=== PATIENT | male | born 1960 | race Caucasian/White ===

== ENCOUNTER → 2023-10-13 06:18 | Day surgery (SDC) | payer OTHER, SELFPAY ==
[2023-10-13 07:38] LABS: Glucose - Point of Care 218 mg/dl (70-99)
== END ==
LOC: GI 06:18
PROVIDERS: ATTENDING PHYSICIAN Internal Medicine
DX: Z12.11 Encounter for screening for malignant neoplasm of colon (principal); K64.8 Other hemorrhoids; K57.30 Diverticulosis of large intestine without perforation or abscess without bleeding; K63.89 Other specified diseases of intestine; D12.0 Benign neoplasm of cecum; D12.8 Benign neoplasm of rectum; D12.5 Benign neoplasm of sigmoid colon; K64.4 Residual hemorrhoidal skin tags; Z86.010 Personal history of colon polyps
CPT/HCPCS: 45385; 45380; 88305; 82962

== ENCOUNTER → 2023-10-30 07:36 | Outpatient (REF) | payer OTHER, SELFPAY | LOC: WOUND 07:36 | PROVIDERS: ATTENDING PHYSICIAN Surgery; FAMILY PHYSICIAN Family Medicine | DX: L97.212 Non-pressure chronic ulcer of right calf with fat layer exposed (principal); L97.221 Non-pressure chronic ulcer of left calf limited to breakdown of skin; I77.6 Arteritis, unspecified; I87.2 Venous insufficiency (chronic) (peripheral); I73.9 Peripheral vascular disease, unspecified; Z79.4 Long term (current) use of insulin; I49.9 Cardiac arrhythmia, unspecified; E13.49 Other specified diabetes mellitus with other diabetic neurological complication; E11.610 Type 2 diabetes mellitus with diabetic neuropathic arthropathy | CPT/HCPCS: 99204 ==

== ENCOUNTER → 2023-11-07 14:43 | Outpatient (REF) | payer OTHER, SELFPAY | LOC: WOUND 14:43 | PROVIDERS: ATTENDING PHYSICIAN Surgery; FAMILY PHYSICIAN Family Medicine | DX: L97.212 Non-pressure chronic ulcer of right calf with fat layer exposed (principal); L97.221 Non-pressure chronic ulcer of left calf limited to breakdown of skin; I77.6 Arteritis, unspecified; I87.2 Venous insufficiency (chronic) (peripheral); I73.9 Peripheral vascular disease, unspecified; I49.9 Cardiac arrhythmia, unspecified; E13.49 Other specified diabetes mellitus with other diabetic neurological complication; E11.610 Type 2 diabetes mellitus with diabetic neuropathic arthropathy; Z79.4 Long term (current) use of insulin | CPT/HCPCS: 99213 ==

== ENCOUNTER → 2023-11-20 14:40 | Outpatient (REF) | payer OTHER, SELFPAY | LOC: WOUND 14:40 | PROVIDERS: ATTENDING PHYSICIAN Surgery; FAMILY PHYSICIAN Family Medicine | DX: L97.212 Non-pressure chronic ulcer of right calf with fat layer exposed (principal); L97.221 Non-pressure chronic ulcer of left calf limited to breakdown of skin; L03.116 Cellulitis of left lower limb; I16.9 Hypertensive crisis, unspecified; I77.6 Arteritis, unspecified; I87.2 Venous insufficiency (chronic) (peripheral); I73.9 Peripheral vascular disease, unspecified; I49.9 Cardiac arrhythmia, unspecified; E11.610 Type 2 diabetes mellitus with diabetic neuropathic arthropathy; Z79.4 Long term (current) use of insulin | CPT/HCPCS: 99214 ==

== ENCOUNTER → 2023-11-27 09:26 | Outpatient (REF) | payer OTHER, SELFPAY | LOC: WOUND 09:26 | PROVIDERS: ATTENDING PHYSICIAN Surgery; FAMILY PHYSICIAN Family Medicine | DX: L97.212 Non-pressure chronic ulcer of right calf with fat layer exposed (principal); L97.221 Non-pressure chronic ulcer of left calf limited to breakdown of skin; L03.116 Cellulitis of left lower limb; I16.9 Hypertensive crisis, unspecified; I77.6 Arteritis, unspecified; I87.2 Venous insufficiency (chronic) (peripheral); I73.9 Peripheral vascular disease, unspecified; I49.9 Cardiac arrhythmia, unspecified; E11.610 Type 2 diabetes mellitus with diabetic neuropathic arthropathy | CPT/HCPCS: 99213 ==

== ENCOUNTER → 2023-12-05 14:35 | Outpatient (REF) | payer OTHER, SELFPAY | LOC: WOUND 14:35 | PROVIDERS: ATTENDING PHYSICIAN Surgery; FAMILY PHYSICIAN Family Medicine | DX: L97.212 Non-pressure chronic ulcer of right calf with fat layer exposed (principal); L97.221 Non-pressure chronic ulcer of left calf limited to breakdown of skin; L03.116 Cellulitis of left lower limb; I16.9 Hypertensive crisis, unspecified; I77.6 Arteritis, unspecified; I87.2 Venous insufficiency (chronic) (peripheral); I73.9 Peripheral vascular disease, unspecified; I49.9 Cardiac arrhythmia, unspecified; E13.49 Other specified diabetes mellitus with other diabetic neurological complication; E11.610 Type 2 diabetes mellitus with diabetic neuropathic arthropathy; Z79.4 Long term (current) use of insulin | CPT/HCPCS: 99213 ==

== ENCOUNTER → 2024-06-03 16:24 | Outpatient (REF) | payer OTHER, SELFPAY | LOC: RAD 16:24 | PROVIDERS: ATTENDING PHYSICIAN Family Medicine | DX: T14.8XXA Other injury of unspecified body region, initial encounter (principal) | CPT/HCPCS: 74018 ==

== ENCOUNTER → 2024-06-17 10:17 | Outpatient (REF) | payer OTHER, SELFPAY ==
[2024-06-17 11:31] LABS: INR 4.44; PT 41.8 Sec (11.4-14.6)
== END ==
LOC: REG 10:17
PROVIDERS: ATTENDING PHYSICIAN Internal Medicine Cardiovascular Disease; FAMILY PHYSICIAN Family Medicine
DX: I24.0 Acute coronary thrombosis not resulting in myocardial infarction (principal); Z79.01 Long term (current) use of anticoagulants
CPT/HCPCS: 36415; 85610

== ENCOUNTER 2024-06-18 21:11 | Inpatient (IN) | payer OTHER, MEDICARE, SELFPAY ==
[2024-06-18] VITALS (10 sets, daily range): BP systolic 98–129; BP diastolic 61–81; BMI 28.9
[2024-06-18 16:10] LABS: Glucose - Point of Care 199 mg/dl (70-99)
[2024-06-18 16:36] LABS: % Basophils 0.3 % (0-2); % Immature Granulocytes 0.4 % (0-0.5); % Lymphocytes 4.2 % (20.5-51.1); % Monocytes 7.4 % (1.7-9.3); % Neutrophils 87.7 % (42.2-75.2); Absolute Lymphocytes 0.5 10^3/uL (1.2-3.4); Absolute Monocytes 0.8 10^3/uL (0.1-0.6); Absolute Neutrophils 9.5 10^3/uL (1.4-6.5); Hematocrit 45.4 % (39.0-52.0); Mean Corpuscular Hgb 28.4 pg (27.0-31.0); Mean Corpuscular Volume 85.8 fL (80.0-94.0); Mean Platelet Volume 10.5 fL (7.4-10.4); Nucleated Red Blood Cells % 0 % (-); Platelet Count 279 10^3/uL (130-400); Red Blood Cell Count 5.29 10^6/uL (4.70-6.10); Red Cell Dist. Width 16.1 % (11.5-14.5); White Blood Cell Count 10.9 10^3/uL (4.8-10.8)
--- NOTE | 2024-06-18 16:39 | ED.GENMED ---
History of Present Illness
General
Chief Complaint: Change in Mental Status
Time Seen by Provider: 06/18/24 16:39
History of Present Illness
History of Present Illness:
TIME OF INITIAL ENCOUNTER: 4:40 PM
HPI: Earlier today, cannot tell me exactly when, the patient appeared to be having trouble with his coordination and had some slurred speech. Of note, the patient was admitted to [facility] about 2 weeks ago for congestive heart
failure. He was diuresed. He is also a diabetic. He had been having chills.
EXAM:
GENERAL: Well appearing in no distress
HEENT: Moist oral mucosa
CARDIOVASCULAR: No murmurs, normal heart rate, regular rhythm, No chest wall tenderness
PULMONARY: No respiratory distress, breath sounds are clear and equal
ABDOMEN: Soft with no peritoneal signs, no tenderness
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
PSYCHIATRIC: Appropriate mental status, normal insight and judgement, very minimal cognitive deficits, was able to name the month and place appropriately
EXTREMITIES: Nontender, 1-2+ bilateral lower extremity edema, moves all extremities equally
SKIN: Erythematous distal lower extremities, wound to the left foot
NUMBER AND COMPLEXITY OF PROBLEMS ADDRESSED AT THE ENCOUNTER
� Chronic conditions affecting care: CHF/cardiomyopathy, high blood pressure, IDDM
� Acute Exacerbation and/or Progression of Chronic Illness: This is an acute problem
� Differential Diagnosis includes:TIA/CVA, hyperglycemia/hypoglycemia, infectious etiology such as UTI, intracranial hemorrhage (supratherapeutic INR)
AMOUNT AND/OR COMPLEXITY OF DATA TO BE REVIEWED AND ANALYZED
� I performed an independent evaluation of and my interpretation is:
EKG: Sinus 57, poor R wave progression, no change from 07/14/2020
CT: CT brain shows no acute abnormality
X-rays: I do not see any clear evidence of pneumonia on chest x-ray
Laboratory Studies: White count 10.9, hemoglobin normal, random glucose 199, sodium 129, bicarb 21, BUN 50, creatinine 1.6�this is acutely worse
Other:
� Review of other/old records: The patient was admitted with CHF in 2020 here. I reviewed some paperwork from [facility] from 2 weeks ago indicating that the patient had a unremarkable brain CT, and had an EF of 15 to
20% and was found to have an LV thrombus for which he is now on Coumadin.
� Clinical information was obtained by an independent historian: I spoke to the at bedside
� Prescriptions/Medications Considered but not given:
� Further testing considered but not performed:
RISK OF COMPLICATIONS AND/OR MORBIDITY OR MORTALITY OF PATIENT MANAGEMENT
� Social determinants of health affecting care: Lives at home
� Discussion with other providers: I notified Dr. Cope at 's request and I also notified Dr. [place]. Dr. Noble for admission.
� Escalation of care including admission/observation vs risk of discharge considered: The patient was hypotensive upon arrival. He is given IV fluids as he does have GHAZAL. He was diuresed recently. His mental status is overall
near back to baseline according to family.
ANY OTHER UPDATES:
7:30 PM: I reassessed patient. Appropriate mental status. BP has been improving. Planning to keep in the hospital for further management of what could have been a TIA and he also has worsening renal function and had been hypotensive upon arrival
he was given IV fluids.
Past History
Past History
ED Past Medical History: HTN, Hypercholesterolemia, IDDM, Other (Cellulitis,) and Other (Nonischemic cardiomyopathy, mild MR)
ED Past Surgical History: Orthopedic
Social History
Tobacco: Former smoker
Alcohol: Occasional
Personal:
Living: with family
Employment: Employed
Family History
Family History: Other (Coronary disease. Sister with brain cancer. Brother with prostate cancer and COPD)
Phy Exam
Physical Exam
Physical Exam:
See HPI
Course
Orders/Labs/Results
Orders:
Orders
06/18/24 16:02
Electrocardiogram (*1) Urgent
Reason for Study: Fatigue / Weakness
EKG- Treatment ONCE
06/18/24 16:11
COVID-19 Antigen Urgent
Source: Nasal Swab
Influenza A+B Rapid Molecular Urgent
VIOLA Source: Nasal Swab
Specimen Description:
06/18/24 16:12
BNP [NT-proBNP] Urgent
Complete Blood Count/With Diff Urgent
Comprehensive Metabolic Panel Urgent
Lactic Acid Urgent
06/18/24 16:50
CT Head W/o Iv Contrast Urgent
Comment:
Reason For Exam: change in mental status
06/18/24 16:51
Prothrombin Time Urgent
Urine Culture Reflexed from UA [Urinalysis Reflex To Culture] Urgent
Date Specimen was Collected: 06/18/24
Time Specimen was Collected: 16:50
Urine Microscopic Reflex Cult Urgent
Urine Culture Urgent
VIOLA Source: U
Specimen Description:
Date Specimen was Collected: 06/18/24
Time Specimen was Collected: 16:50
CR Chest - 2 Views Urgent
Comment:
Reason For Exam: cough
06/18/24 18:21
0.9% Sodium Chloride 250 ml [Nss] 250 ml IV BOLUS
06/18/24 20:01
Serum Osmolality Routine
Urine Osmolality Random [Osmolality, Random Urine] Routine
Urine Sodium Routine
06/19/24 06:00
TSH Reflex To Free T4 IN AM
Abnormal Lab Results
06/18/24 06/18/24 06/18/24
16:09 16:12 16:51
WBC 10.9 H 10^3/uL
(4.8-10.8)
RDW 16.1 H %
(11.5-14.5)
MPV 10.5 H fL
(7.4-10.4)
Absolute Neuts (auto) 9.5 H 10^3/uL
(1.4-6.5)
Absolute Lymphs (auto) 0.5 L 10^3/uL
(1.2-3.4)
Absolute Monos (auto) 0.8 H 10^3/uL
(0.1-0.6)
Neutrophils % 87.7 H %
(42.2-75.2)
Lymphocytes % 4.2 L %
(20.5-51.1)
PT 38.1 H Sec
(11.4-14.6)
Sodium 129 L mmol/L
(135-145)
Chloride 94 L mmol/L
(98-107)
Carbon Dioxide 21 L mmol/L
(22-30)
BUN 50 H mg/dl
(9-20)
Creatinine 1.6 H mg/dL
(0.7-1.3)
Glucose 212 H mg/dl
(70-99)
Calcium 8.2 L mg/dl
(8.4-10.2)
Total Bilirubin 1.9 H mg/dl
(0.2-1.3)
AST 83 H U/L
(17-59)
ALT 80 H U/L
(0-50)
Alkaline Phosphatase 385 H U/L
(38-126)
Albumin 3.4 L g/dl
(3.5-5.0)
Ur Occult Blood Reflex 1+ A
(Negative)
Urine Bacteria (Reflex) Moderate A
(Negative)
Urine Glucose 3+ A
(Negative)
Urine Albumin (Reflex) 3+ A
(Neg - Trace)
POC Glucose 199 H mg/dl
(70-99)
06/18/24 16:12
06/18/24 16:12
Vital Signs
Initial and Last Documented VS:
Initial Vital Signs
Pulse Resp BP Pulse Ox
58 16 98/61 98
06/18/24 15:57 06/18/24 15:57 06/18/24 15:57 06/18/24 15:57
Last Documented Vital Signs
Temp Pulse Resp BP Pulse Ox
36.3 C 65 19 129/73 97
06/18/24 17:15 06/18/24 19:15 06/18/24 19:15 06/18/24 19:29 06/18/24 19:45
*Critical Care Note
Total Time (30-74mins, 75-104mins- exclusive of procedures): Not Applicable
ED Attending Note
-
Portions of this chart may have been created with voice recognition software.� Occasional wrong word or��sound alike� substitutions may have occurred due to the inherent limitations of voice recognition software.
Discharge Plan
Departure
Patient Disposition: Admit
Date of Disposition: 06/18/24
Time of Disposition: 19:41
Presentation/result/management discussed w/ accepting MD/DO: Hospitalist
Discharge Problem:
Transient ischemic attack (TIA)
Prescriptions:
No Action
aspirin 81 MG tablet,delayed release (DR/EC)
81 mg PO DAILY
zolpidem 10 MG tablet
10 mg PO HS
Patient Comments:
06/18/24: Last filled 04/09/24 for 90 tabs over 90 days per PDMP
furosemide 40 MG tablet
40 mg PO BID
gabapentin [Neurontin] 600 MG tablet
600 mg PO DAILY
carvedilol 12.5 MG tablet
12.5 mg PO BID Qty: 30 0RF
atorvastatin 80 mg Tablet
80 mg PO DAILY
warfarin 7.5 mg Tablet
5 mg PO QPM
Patient Comments:
06/18/24: Patient previously on 7.5mg daily, recently had INR checked, skipping dose today and plans on taking 5mg daily afterwards, will recheck in 1 week
hydralazine 25 mg Tablet
25 mg PO TID
spironolactone 25 mg Tablet
25 mg PO QPM
albuterol sulfate 90 mcg/actuation Hfa Aerosol Inhaler
2 puff INHALATION R Q6HPRN PRN (Reason: sob)
insulin lispro [Humalog KwikPen Insulin] 100 unit/mL Insulin Pen
5 unit SC AC
dapagliflozin propanediol [Farxiga] 10 mg Tablet
10 mg PO DAILY
Entresto 97-103 mg Tablet
1 tab PO BID
magnesium oxide 400 mg magnesium Tablet
400 mg PO BID
Levemir FlexTouch U100 Insulin 300 UNIT/3 ML insulin pen
20 unit SC BID@0800,1700
Referrals:
Raymond Sherwood DO [Family Provider] -
Interventions
Interventions:
*Risk Screen - Suicide Last Done: 06/18/24 15:57
*General Assessment Last Done: 06/18/24 15:57
*Neglect/Abuse Screening Last Done: 06/18/24 16:52
*ED- Fall Risk Assessment Last Done: 06/18/24 16:52
*ED COVID-19 Vaccine History Last Done: 06/18/24 16:52
ED- Pulmonary Assessment Last Done: 06/18/24 16:53
ED- Neurological Assessment Last Done: 06/18/24 16:53
ED- Cardiac Assessment Last Done: 06/18/24 16:53
ED Swallowing Screen Last Done: 06/18/24 17:13
Discharge Date and Time
Print Language: TAJIK
[2024-06-18 16:55] LABS: ALT (SGPT) 80 U/L (0-50); AST (SGOT) 83 U/L (17-59); Albumin 3.4 g/dl (3.5-5.0); Alkaline Phosphatase 385 U/L (38-126); Blood Urea Nitrogen 50 mg/dl (9-20); Calcium 8.2 mg/dl (8.4-10.2); Carbon Dioxide 21 mmol/L (22-30); Chloride 94 mmol/L (98-107); Estimated Creatinine Clearance 57 ml/min; Glucose 212 mg/dl (70-99); Lactic Acid 1.4 mmol/L (0.7-2.0); Potassium 4.4 mmol/L (3.5-5.1); Sodium 129 mmol/L (135-145); Total Bilirubin 1.9 mg/dl (0.2-1.3); Total Protein 6.7 g/dl (6.3-8.2); eGFR 47.52
[2024-06-18 17:11] LABS: Urine Albumin 3+ (Neg - Trace); Urine Bilirubin Negative (Negative); Urine Character Clear (Clear); Urine Color Yellow; Urine Glucose 3+ (Negative); Urine Ketone Negative (Negative); Urine Leukocyte Negative (Negative); Urine Nitrite Negative (Negative); Urine Occult Blood 1+ (Negative); Urine Specific Gravity 1.025 (<1.030); Urine Urobilinogen Negative (Neg - 1+)
[2024-06-18 17:22] LABS: INR 3.94; PT 38.1 Sec (11.4-14.6)
[2024-06-18 17:23] LABS: Urine Bacteria Moderate (Negative); Urine Hyaline Cast >15 /LPF (0-2); Urine Red Blood Cell 0-2 /HPF (0-2)
[2024-06-18 17:34] LABS: NT-proBNP 4400 pg/ml
[2024-06-18 17:40] LABS: COVID-19 Antigen Negative (Negative)
[2024-06-18] MEDS: NSS 250 IV (18:58)
--- NOTE | 2024-06-18 19:53 | HPS.HSE ---
Family Physician
-
Family Physician: Raymond Sherwood
Chief Complaint
-
Confusion, garbled speech, episode of staring, leg edema
History of Present Illness
63-year-old male brought in by his to the ER for episode of staring with confusion and garbled speech. His daughter is at bedside and states her father today has been very confused he is normally very pleasant with her never gets agitated or
yells at her but he did this today she was telling me this information while the patient was in the bathroom she also reports he has been extremely lethargic falling asleep at all times of the day for the past month he states he has been missing
dinners due to falling asleep during dinner times he remembers getting up this morning and feeling very off balance but then he does not remember staring or garbled speech he states when he gets up he feels that he has to steady himself that his
legs are also heavier due to edema. He was not aware that during his recent hospitalization stay at [facility] he was wandering at night climbing out of the bed doing bizarre things however they were giving him his routine Ambien that he
has been taking for years he was on fall precautions with bed alarms per daughter that he has no recollection of. He does report feeling loss of appetite overall short of breath with dyspnea on exertion, bilateral leg edema that is weeping and
episodes of confusion today. His daughter stated on Monday he called her crying saying he was depressed and he would never normally say that she thought perhaps this was due to a recent fci as [employer] she states he normally
would only ever break down in front of his her mother. Patient denies headache, blurred vision out of right eye, sore throat, chest pain, palpitations, cough, abdominal pain, nausea, vomiting, diarrhea, urinary symptoms.
She reports he was admitted to [facility] 2 weeks ago for congestive heart failure was diuresed diagnosed with cardiomyopathy EF 15-20% and an LV thrombus he was placed on Coumadin. He is currently at his baseline. His past medical history
of DM2, HLD, chronic systolic CHF, right leg cellulitis, cardiomyopathy EF 40% 06/10/2022, nicotine dips
Medical History
Past Medical History
Past Medical History: Reports Other
Additional Past Medical History:
LV thrombus 06/06 - 06/12/[address] [facility]
Worsening cardiomyopathy EF 15-20% June 2024 [facility]
cardiomyopathy EF 40% 06/10/2022
Renal insufficiency
DM2
HLD
chronic systolic CHF
right leg cellulitis,
nicotine dips
Past Surgical History: Reports Other (Arthroscopic knee surgery right 3 times left 2 times, renal calculi removal, penile implant, back surgery, cataract extraction with detached retina and lens implant left eye)
Social History
Tobacco: Other (DIPs tobacco)
Alcohol: None
Drug: None
Personal:
Living: With Family ()
Employment: Retired ([employer])
Family History
Family History: Not pertinent
Allergies / Home Medications
Allergies reflects when Allergies were last updated in [employer].
Home Medications with original date entered in [employer]
Allergy/Medication List:
Allergies
Allergy/AdvReac Type Severity Reaction Status Date / Time
No Known Allergies Allergy Verified 06/18/24 16:01
Home Medications
aspirin 81 mg tablet,delayed release 81 mg PO DAILY Heart disease 07/06/09
zolpidem 10 mg tablet 10 mg PO HS Sleep 04/22/19
furosemide 40 mg tablet 40 mg PO BID Fluid retention/Swelling 05/19/19
gabapentin 600 mg tablet (Neurontin) 600 mg PO DAILY Neurological Condition 07/09/20
carvedilol 12.5 mg tablet 12.5 mg PO BID Heart Failure ##30 07/14/20
albuterol sulfate 90 mcg/actuation aerosol inhaler 2 puff inhalation R Q6HPRN PRN sob 06/18/24
atorvastatin 80 mg tablet 80 mg PO DAILY 06/18/24
dapagliflozin propanediol 10 mg tablet (Farxiga) 10 mg PO DAILY 06/18/24
hydralazine 25 mg tablet 25 mg PO TID 06/18/24
insulin detemir U-100 100 unit/mL (3 mL) subcutaneous pen (Levemir FlexTouch U-100 Insulin) 20 unit SC BID@0800,1700 Diabetes 06/18/24
insulin lispro 100 unit/mL subcutaneous pen (Humalog KwikPen (U-100) Insulin) 5 unit SC AC 06/18/24
magnesium oxide 400 mg PO BID 06/18/24
sacubitril 97 mg-valsartan 103 mg tablet (Entresto) 1 tab PO BID 06/18/24
spironolactone 25 mg tablet 25 mg PO QPM 06/18/24
warfarin 7.5 mg tablet 5 mg PO QPM 06/18/24
Review of Systems
-
History Source: Patient and Family (Daughter at bedside)
A 12 point ROS was completed and negative except as noted: Yes
Constitutional: Reports Weight Gain, Fatigue and Other (Confusion, staring episode, agitation episode, garbled speech)
EENT: Denies Sore Throat or Runny Nose
Respiratory: Reports Trouble Breathing and Other (RODRÍGUEZ x 1 month); Denies Cough
Cardiac: Denies Chest Pain, Diaphoresis, Palpitations or Syncope
Abdomen/GI: Denies Abdominal Pain, Nausea, Vomiting, Diarrhea, Constipated, Bloody Stools or Black Stools
: Denies Dysuria, Frequency, Flank Pain, Incontinence, Difficulty Voiding or Urgency
Musculoskeletal: Reports Edema (+3 bilateral leg edema with chronic venous stasis dermatitis and flaking skin bilaterally); Denies Joint Pain
Skin: Denies Itching or Rash
Neurological: Reports Weakness (Generalized); Denies Dizzy or Headache
Endocrine: Reports No Symptoms
Hematologic/Lymphatic: Reports No Symptoms
Psych: Reports Calm
Physical Exam
Vital Signs
Vital Signs
Temp Pulse Resp BP Pulse Ox
97.4 F 65 19 129/73 97
06/18/24 17:15 06/18/24 19:15 06/18/24 19:15 06/18/24 19:29 06/18/24 19:45
Physical Exam
General: Comfortable, Conversant and Other (Approximately 11 AM had Confusion, staring episode, agitation episode, garbled speech-appears to be resolved however patient still does not have memory of what happened this morning and some memory of his
recent admission); No Fever or Chills
HEENT: NormoCephalic, Anicteric, Moist mucous membranes, PERRLA (Right eye only left eye with lens implant), Spelter Conjunctivae, No Ptosis and Neck Nontender
Respiratory: Clear; No Wheezes, Rales or Rhonchi
Cardiac: S1/S2, Regular Rhythm and Peripheral Edema (+3 bilateral leg edema with chronic venous stasis dermatitis and flaking skin bilaterally)
Breast: Deferred by me
GI: Soft, Non Tender, Non Distended, Normal Bowel Sounds and No Hepatosplenomegaly
Rectal: Deferred by Provider
Genito-urinary: Deferred by me
Musculoskeletal: Edema, Left Lower Extremity (+3 bilateral leg edema with chronic venous stasis dermatitis and flaking skin bilaterally) and Edema, Right Lower Extremity (+3 bilateral leg edema with chronic venous stasis dermatitis and flaking skin
bilaterally); No Edema, Left Upper Extremity or Edema, Right Upper Extremity
Skin: Warm and Dry; No Jaundice
Neuro: AO x 3 (But forgetful of earlier events today does not recall staring at having slurred speech but does recall feeling off balance at 11 AM is oriented to name, place, president), Cranial Nerves Intact, No Sensory Deficits and Other
(Feels off balance when walking is holding onto things); No Slurred Speech, Facial Droop, Tremors or Sedated
Psych: Calm
Laboratory Results
-
06/18/24 16:12
06/18/24 16:12
Laboratory Results
PT 38.1 Sec (11.4-14.6) H 06/18/24 16:51
INR 3.94 06/18/24 16:51
Lactic Acid 1.4 mmol/L (0.7-2.0) 06/18/24 16:12
Total Bilirubin 1.9 mg/dl (0.2-1.3) H 06/18/24 16:12
AST 83 U/L (17-59) H 06/18/24 16:12
ALT 80 U/L (0-50) H 06/18/24 16:12
Alkaline Phosphatase 385 U/L (38-126) H 06/18/24 16:12
Impression/Plan
-
Impression/plan:
Admit to IMU
#Slurred speech/confusion with staring episodes, mood changes agitation concern for TIA versus CVA vs Seizure vs hypercarbia from cardiomyopathy
-Check lipid profile, HgbA1c
-Continue aspirin 81 mg daily
-Check lipid profile continue atorvastatin 80 mg daily
-MRI brain
-Ultrasound carotids
-Consult PT/OT/case management
-Consult neuro
-check B12 level
CT head:1. Mild diffuse cerebral and cerebellar volume loss.
2. Mild periventricular white matter leukoaraiosis.
3. Intraocular silicone oil in the left globe (vitreous replacement) for treatment of retinal detachment.
#Acute on chronic systolic CHF/cardiomyopathy EF 15-20% per 2 weeks ago
#Recent exacerbation CHF 2 weeks ago [facility] 06/06 - 06/12
Bilateral leg +3 edema with history of chronic leg cellulitis
-Obtain records from [facility] including echocardiogram
-Consult [facility] cardiology Dr. Ny aware
-IV Lasix 40 mg now single dose needs 40 twice daily but unsure if BP will tolerate
-Continue carvedilol 12.5 mg twice daily, Farxiga 10 mg daily with hold parameters
2D echo 06/10/2022: EF 40%. Mild to moderate reduced LVSF. Global hypokinesis mild LVH stage II diastolic dysfunction. Mild MR
#Labile hypertension
98/61> 129/73 post 500 cc bolus will hold further fluids
-Check orthostatic vitals
Hold spironolactone hold Entresto will hold hydralazine 25 mg 3 times daily
#Supratherapeutic INR on Coumadin for LV thrombus
Recent LV thrombus Dx 2 weeks ago [facility]
-INR 3.94, INR yesterday was 4.1 he was told to hold Coumadin
-HOLD Coumadin today INR in a.m.
#Hyponatremia�hypervolemic current CHF
NA 129
-Check urine NA, urine Osmo, serum Osmo, TSH with free T4 reflex
#GHAZAL on ckd3 cardiorenal
Creat 1.6, prior creat 0.8 in 2020
-Follow BMP
-Entresto hold spironolactone
#Transaminitis likely secondary to heart failure
AST 83 ALT 80 alk phos 385 will follow CMP
#DM 2/diabetic neuropathy
BS 212, Accu-Cheks with SSI, check HgbA1c
Continue Levemir half dose 10 units subcu twice daily lispro 5 units with meals
-Continue gabapentin 600 mg daily
#HLD
Check lipid profile
#Nicotine dips
-Patient currently has nicotine dip in his mouth he was made aware of strong incidence of oral cancers but he does not care
DVT prophylaxis
History of current LV thrombus with supratherapeutic INR hold Coumadin today
Full code
[2024-06-18] MEDS: LASIX 40 MG IV (20:56)
--- NOTE | 2024-06-18 20:58 | W.PN.UPDATE ---
Update Note
Progress Note Update
63-year-old male past medical history of chronic HFrEF, recently diagnosed LV thrombus on Coumadin, hyperlipidemia, type 2 diabetes, presenting for slurred speech and confusion sometimes started today. Was noted to have some staring episodes,
garbled speech, personality changes and agitation which has been intermittent. Currently back to normal mental status.
He was recently admitted at [facility] a few weeks ago for CHF exacerbation. He was diuresed and found to have ejection fraction 15 to 20% and placed on Coumadin for LV thrombus.
Blood pressure initially 98/61 which improved with IV fluids
Labs show leukocytosis.
Labs show creatinine of 1.6. Elevated LFTs. Cardiac BNP of 4400. Chest x-ray appears to show cardiomegaly, report pending. INR 3.94. Coumadin dose was held yesterday.
CT head shows no acute intracranial abnormality.
Presentation concerning for CVA in the setting of recent LV thrombus versus seizure vs metabolic encephalopathy vs less likely hypercarbia. Check VBG, MRI brain, check TSH, B12, neurology consulted.
Also presentation concerning for acute CHF exacerbation. Will give 40 IV Lasix. Will require 40 IV twice daily however will hold off ordering further is unsure if patient blood pressure can tolerate. Hold hydralazine and nephrotoxic medications.
Cardiology consulted.
Hold Coumadin tonight. Recheck INR in the morning.
Hold Ambien as this seems to be worsening symptoms.
[2024-06-18 21:20] LABS: Venous Blood Gas B.E. -0.4 mmol/L (-4 to +4); Venous Blood Gas HCO3 24.1 mmol/L (22-27); Venous Blood Gas O2 Sat % 87.3 %; Venous Blood Gas pCO2 38 mmHg (35-48); Venous Blood Gas pH 7.41 (7.32-7.43); Venous Blood Gas pO2 56 mmHg (30-50)
[2024-06-18 21:40] LABS: Osmolality Urine 422 mOsm/kg (300-900)
[2024-06-18 21:52] LABS: Urine Sodium 11 mmol/L (30-90)
[2024-06-18 22:11] LABS: Osmolality Serum 295 mOsm/kg (275-300)
[2024-06-18 22:35] LABS: TSH Reflex To Free T4 1.16 uIU/ml (0.47-4.68)
[2024-06-18 22:54] LABS: Vitamin B12 884 pg/ml (239-931)
[2024-06-18 23:25] LABS: Glucose - Point of Care 323 mg/dl (70-99)
--- NOTE | 2024-06-18 23:48 | W.PN.UPDATE ---
Update Note
Progress Note Update
Patient stating he takes his gabapentin 600 mg at at bedtime we will give he is also requesting his Ambien 10 mg at bedtime however due to his confusion earlier today with staring and garbled speech and loss of memory today we are going to hold on
given Ambien. His daughter also states while inpatient at [facility] he was given Ambien and had to be placed on fall precautions with the bed he was wandering around doing bizarre things. He states he has been on Ambien for years however
given his current unknown neurological status I would like to hold Ambien at current time we will offer melatonin 5 mg in addition to his gabapentin
[2024-06-19] VITALS (20 sets, daily range): BP systolic 89–123; BP diastolic 33–80; PULSE 64–67; O2SAT 96
[2024-06-19] MEDS: LANTUS 0.1 UNITS SC ×4 (00:01→21:10)
[2024-06-19] MEDS: NEURONTIN 600 MG PO ×2 (00:11→08:34)
[2024-06-19] MEDS: MELATONIN 5 MG PO (00:11)
[2024-06-19 06:12] LABS: INR 4.32; PT 40.9 Sec (11.4-14.6)
[2024-06-19 06:37] LABS: ALT (SGPT) 59 U/L (0-50); AST (SGOT) 55 U/L (17-59); Albumin 2.6 g/dl (3.5-5.0); Alkaline Phosphatase 319 U/L (38-126); Blood Urea Nitrogen 53 mg/dl (9-20); Calcium 7.9 mg/dl (8.4-10.2); Carbon Dioxide 21 mmol/L (22-30); Chloride 98 mmol/L (98-107); Estimated Creatinine Clearance 60 ml/min; Glucose 353 mg/dl (70-99); Magnesium 2.3 mg/dl (1.6-2.3); Potassium 4.4 mmol/L (3.5-5.1); Sodium 130 mmol/L (135-145); Total Bilirubin 1.3 mg/dl (0.2-1.3); Total Protein 5.4 g/dl (6.3-8.2); eGFR 51.35
[2024-06-19 06:47] LABS: % Basophils 0.5 % (0-2); % Eosinophils 0.2 % (0-6); % Immature Granulocytes 0.5 % (0-0.5); % Lymphocytes 5.9 % (20.5-51.1); % Monocytes 9.7 % (1.7-9.3); % Neutrophils 83.2 % (42.2-75.2); Absolute Basophils 0.1 10^3/uL (0-0.2); Absolute Immature Granulocytes 0.1 10^3/uL (0-0.05); Absolute Lymphocytes 0.7 10^3/uL (1.2-3.4); Absolute Monocytes 1.1 10^3/uL (0.1-0.6); Absolute Neutrophils 9.7 10^3/uL (1.4-6.5); Hematocrit 35.7 % (39.0-52.0); Mean Corp Hgb Conc. 33.6 g/dL (33.0-37.0); Mean Corpuscular Hgb 28.6 pg (27.0-31.0); Mean Platelet Volume 10.7 fL (7.4-10.4); Nucleated Red Blood Cells % 0 % (-); Platelet Count 281 10^3/uL (130-400); Red Cell Dist. Width 16.2 % (11.5-14.5); White Blood Cell Count 11.7 10^3/uL (4.8-10.8)
[2024-06-19 06:59] LABS: TSH Reflex To Free T4 0.58 uIU/ml (0.47-4.68)
[2024-06-19 07:23] LABS: Glucose - Point of Care 388 mg/dl (70-99)
[2024-06-19] MEDS: LIPITOR 80 MG PO (08:34)
[2024-06-19] MEDS: ASPIR LOW (ENTERIC COATED) 81 MG PO (08:34)
[2024-06-19] MEDS: COREG 12.5 MG PO (08:35)
[2024-06-19] MEDS: FARXIGA 10 MG PO (08:35)
[2024-06-19] MEDS: MAG-TAB SR 84 MG PO ×2 (08:35→21:06)
[2024-06-19] MEDS: LASIX 40 MG PO (08:38)
[2024-06-19] MEDS: NOVOLOG FLEXPEN 5 UNITS SC ×3 (09:10→16:05)
[2024-06-19] MEDS: NOVOLOG FLEXPEN-LOW RESISTANCE 5 UNITS SC (09:10)
--- NOTE | 2024-06-19 09:11 | EEG.RPT ---
Electroencephalogram Report
Recording
Date of EE06/19/24
Type of EEG: Routine
Length of EEG recordin minutes
Done with Video Recording: Yes
Patient Status: Emergency Room
Recording Conditions: Awake, Drowsy and Asleep
Hyperventilation Performed: No
Photic Stimulation Performed: Yes
Report
LESS THAN 1 HOUR EEG REPORT
LESS THAN 1 HOUR EEG INTERPRETATION:
Mildly abnormal EEG for age due to diffuse bihemispheric slowing.
CLINICAL CORRELATION:
This study was suggestive of diffuse cortical dysfunction without focal abnormality. No seizures were recorded.
Clinical correlation is advised.
METHODS:
A 21 channel digitized electroencephalogram (EEG) was performed at the bedside. The 10/20 international system of electrode placement was used with ECG and lateral/vertical eye movements recorded. Persyst QEEG monitoring was performed.
QUALITY OF STUDY:
Fair due to muscle artifact
ELECTROENCEPHALOGRAPHER IMPRESSION(S):
Background
There was a low to medium amplitude fairly well organized at times anterior-posterior voltage gradient of theta frequency
There were no significant asymmetries of background activity noted.
Sleep
Drowsiness present
Stage 2 sleep recorded
Photic Stimulation
Failed to activate the record.
ECG
Normal sinus rhythm
[2024-06-19 09:21] LABS: Glycohemoglobin (HgbA1c) 10.8 % (4.0-5.6)
--- NOTE | 2024-06-19 10:19 | CON.CAR ---
Addendum entered and electronically signed by Neil Burns MD 06/19/24 16:10:
I saw and examined the patient.
The Meat Trimmer's note was reviewed and I agree with the note.
Comment: Briefly, 63-year-old man past medical history of heart failure with reduced ejection fraction (EF 15%) and LV thrombus who presents following an episode of word finding difficulty and MRI was concerning for small acute/subacute infarct.
In regards to his heart failure, he was diagnosed with nonischemic cardiomyopathy many years ago and LV systolic function has waxed and waned over this time, most recently severely reduced on echo from outside hospital and at that time was
identified as having LV thrombus.
Would continue home GDMT�Coreg, Entresto, Farxiga, spironolactone
Not reporting any dyspnea to me and lung sound clear however he does have lower extremity edema on exam. proBNP was elevated on admission over 4000. For now would continue IV Lasix.
Follow-up weight/renal function, hopefully can transition to oral Lasix in the next 24 to 48 hours
In regards to his LV thrombus, he was maintained on warfarin prior to admission and was actually supratherapeutic with an INR of 3.9
Would continue warfarin if thought to be acceptable from neurology standpoint given acute infarct on MRI
Has not been seen in our office for several years, we will arrange for outpatient follow-up
Original Note:
Consultation
Consultation Request
Date/Time Consultation Requested: 06/18/24 at 2106
Date/Time Consultation Performed: 06/19/24 at 1217
Requesting Provider: Dr. Guy
Performing Provider: Dr. Burns
Reason for Consultation: Acute HFrEF
Medical History
-
History of Present Illness:
Patient came to [facility] from home yesterday with confusion and garbled speech and was admitted for acute HF and cardiology has been consulted. Patient is a poor historian and gave me permission to call his daughter. Also reviewed 67 pages of records
from recent [facility] admission. Patient had NICM diagnosed in 2018 and with GDMT his EF improved to 40% by last echo at in 06/2022. Patient then stopped coming to cardiology appts at , but reportedly did not start following elsewhere. Patient
then retired and stopped taking his medications on a regular schedule despite reminders from family. Patient started with LE wounds 02/2024 and following with wound care center and seemed to be improving. Patient then started with a cough and saw
his PCP 05/02/24 and lungs were clear and he was started on promethazine and albuterol. Patient was then admitted to [facility] with SOB 06/06/24 and during that admission was found to have EF down to 15% and he had a new LV clot and was started on
warfarin. Patient was also d/c'd to home on Coreg, Entresto and spironolactone which are meds he had been on when he was last seen in the cardiology office in 2022. Patient was diuresed with Lasix IV and d/c'd to home on Lasix 40 mg PO BID.
Patient's daughter reports that patient was not taking meds at home and when VN came to see him he had garbled speech and was sent to the ER.
PMH:
Chronic HFrEF
h/o improved NICM EF 25% by echo 03/2018 and then improved to 40% by echo 06/2022
Nonobstructive CAD by cath 2018
Medication noncompliance
CKD 3a
Chews tobacco
Past Medical History
Past Medical History: Other (in HPI)
Past Surgical History: Cardiac (nonobstructive CAD by cath 2018) and Orthopedic
Social History
Tobacco: Former Smoker
Alcohol: None (patient denies and family confirms)
Drug: None
Personal:
Living: With Family
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
Family History
Family History: CAD (father and mother with DE) and Cancer (sister with brain cancer, brother with prostate cancer)
Allergies / Home Medications
Allergy/AdvReac Type Severity Reaction Status Date / Time
No Known Allergies Allergy Verified 06/18/24 16:01
�Medication �Instructions �Recorded �Confirmed �Type
aspirin 81 mg tablet,delayed 81 mg PO DAILY Heart disease 07/06/09 06/18/24 History
release
zolpidem 10 mg tablet 10 mg PO HS Sleep 04/22/19 06/18/24 History
furosemide 40 mg tablet 40 mg PO BID Fluid 05/19/19 06/18/24 History
retention/Swelling
gabapentin 600 mg tablet 600 mg PO HS Neurological Condition 07/09/20 06/18/24 History
(Neurontin)
carvedilol 12.5 mg tablet 12.5 mg PO BID Heart Failure ##30 07/14/20 06/18/24 Rx
albuterol sulfate 90 mcg/actuation 2 puff inhalation R Q6HPRN PRN sob 06/18/24 06/18/24 History
aerosol inhaler
atorvastatin 80 mg tablet 80 mg PO DAILY 06/18/24 06/18/24 History
dapagliflozin propanediol 10 mg 10 mg PO DAILY 06/18/24 06/18/24 History
tablet (Farxiga)
hydralazine 25 mg tablet 25 mg PO TID 06/18/24 06/18/24 History
insulin detemir U-100 100 unit/mL 20 unit SC BID@0800,1700 Diabetes 06/18/24 06/18/24 History
(3 mL) subcutaneous pen (Levemir
FlexTouch U-100 Insulin)
insulin lispro 100 unit/mL 5 unit SC AC 06/18/24 06/18/24 History
subcutaneous pen (Humalog KwikPen
(U-100) Insulin)
magnesium oxide 400 mg PO BID 06/18/24 06/18/24 History
sacubitril 97 mg-valsartan 103 mg 1 tab PO BID 06/18/24 06/18/24 History
tablet (Entresto)
spironolactone 25 mg tablet 25 mg PO QPM 06/18/24 06/18/24 History
warfarin 7.5 mg tablet 5 mg PO QPM 06/18/24 06/18/24 History
Review of Systems
-
History Source: Patient
All other systems: Negative unless noted
Physical Exam
Vital Signs
Temp Pulse Resp BP Pulse Ox
98.2 F 63 16 115/64 94
06/19/24 07:30 06/19/24 08:00 06/19/24 08:00 06/19/24 08:00 06/19/24 08:00
GEN: NAD. AAO to person, place and situation
HEENT: EOMI, MMM
LUNGS: RA. CTA B/L without wheeze or rales
CV: SR on tele, low amplitude. Reg, S1/S2, no murmur
ABD: soft, BS+, NT, ND
EXT: +3 hard pitting B/L LE edema. B/L calf wounds and left foot wound at first MTP joint.
NEURO: Gross non-focal
SKIN: Warm, dry and pink. No rash
Lab Results
06/19/24 05:43
06/19/24 05:43
Esh-D-Ytqmzvscllb Pept 4400 pg/ml 06/18/24 16:12
Impression / Plan
-
PCP: Dr. Sherwood
Cardiology: Dr. Ny, last seen 06/2022
Impression:
Admitted with confusion and acute HFrEF 06/18/24
Recent admission to [facility] for acute HF and foot wound 06/06/24 until 06/12/24
Hypotension
Acute HFrEF
CM EF 15% by echo at [facility] 06/07/24
h/o improved NICM EF 25% by echo 03/2018 and then improved to 40% by echo 06/2022
Nonobstructive CAD by cath 2017
Medication noncompliance
Newly diagnosed LV thrombus
1.5 x 1.2 cm LV apical clot on echo at [facility] 06/07/24
Chronic warfarin managed by [facility]
started for LV clot 06/07/24
Supratherapeutic INR on admission
Hyponatremia
GHAZAL on CKD 3a
Elevated LFTs
Chews tobacco
Echo 05/30/2024: [facility] study, EF 15 to 20%, severe global hypokinesis and septal dyskinesis, small and organized thrombus in the LV apex measuring 1.5 x 1.2 cm, grade 3 diastolic dysfunction, at least mildly dilated RV with reduced
systolic function, mild to moderate MR, mild pericardial effusion seen posteriorly without evidence of tamponade
Plan:
-Patient came to [facility] from home yesterday with confusion and garbled speech and was admitted for acute HF and cardiology has been consulted. Patient is a poor historian and gave me permission to call his daughter. Also reviewed 67 pages of records
from recent [facility] admission. Patient had NICM diagnosed in 2018 and with GDMT his EF improved to 40% by last echo at in 06/2022. Patient then stopped coming to cardiology appts at , but reportedly did not start following elsewhere. Patient
then retired and stopped taking his medications on a regular schedule despite reminders from family. Patient started with LE wounds 02/2024 and following with wound care center and seemed to be improving. Patient then started with a cough and saw
his PCP 05/02/24 and lungs were clear and he was started on promethazine and albuterol. Patient was then admitted to [facility] with SOB 06/06/24 and during that admission was found to have EF down to 15% and he had a new LV clot and was started on
warfarin. Patient was also d/c'd to home on Coreg, Entresto and spironolactone which are meds he had been on when he was last seen in the cardiology office in 2022. Patient was diuresed with Lasix IV and d/c'd to home on Lasix 40 mg PO BID.
Patient's daughter reports that patient was not taking meds at home and when VN came to see him he had garbled speech and was sent to the ER.
-ECG reviewed by me and looks like SR and QTc 467 ms
-Patient with recurrent HF due to medication noncompliance. Patient was given Lasix 40 mg IV x1 in the ER overnight and then started on Lasix 40 mg PO BID. Suspect patient remains volume overloaded and will change to Lasix 40 mg IV BID, ordered by me
-B/L LE tubigrips, ordered by me. Chronic calf venous wounds followed at wound care center and the left first MTP wound was negative for osteomyelitis by MRI at [facility] last week.
-EF previously improved following initial diagnosis of NICM back in 2018, but it sounds as though medication noncompliance may have precipitated worsening EF. No reports of any CP, but will consider repeat ischemic evaluation as last cath was in
2018.
-Outpatient dose of Coreg 12.5 mg BID has been continued, but will lower dose to 6.25 mg BID due to hypotension and the need for IV diuresis
-Outpatient dose of Entresto 97/103 mg BID has been on hold since admission due to hypotension
-Outpatient dose of spironolactone 25 mg daily has been on hold since admission due to hypotension
-Outpatient dose of Farxiga 10 mg daily has been continued
-Patient with new LV clot by echo at [facility] 05/30/2024. Will repeat echo now with [facility]
-INR was supratherapeutic at 3.94 on admission. Patient was new to warfarin starting 06/07/2024 and upon d/c to home [facility] took over management. INR's are drawn at [facility] and the goal is 2-3. His last outpatient INR on 06/17/2024 was 4.4 and patient
was instructed to hold warfarin for 2 days then reduce to 5 mg daily. Regardless warfarin is now on hold and will adjust on a daily basis for INR goal of 2-3
-Talked with patient's daughter by phone for 19 minutes, she is in school to become an RN. It sounds as though patient is noncompliant at home and is dismissive and angry towards family who tried to help him. Patient retired from his job recently
and it sounds as though that is when most of the medication noncompliance started. Perhaps patient would benefit from an antidepressant. Patient denies drinking and his family confirms this.
--- NOTE | 2024-06-19 12:28 | CON.NEURO ---
Neuro Assessment/Plan
Assessment
Brain MRI images reviewed with patient, tiny right mahan radiata stroke of unclear significance, patient without any focal left sided symptoms/signs.
In an elderly dementia patient I would consider a tiny stroke setting off a delirium episode, but in his case, he is cognitively intact, no functional decline; I believe this is an incidental finding
carotid u/s <50% stenosis bilaterally
EEG showed background slowing
already on max med tx with ASA 81, coumadin, Lipitor 80
Plan
no further workup
Consultation
Order
Date of Consultation: 06/19/24
Requesting Provider: Rachid Olguin
Reason for Consult: AMS
Subjective/Objective
Subjective Data
Date of Service: June 19, 2024
He is a 63 year old man with heart failure, presented with episode of confusion, garbled speech. Normally very pleasant but was agitated, yelled at his family. By the time I saw him, he was back to baseline, and had some memory of the preceeding
events
Objective Data
Vital Signs
Temp Pulse Resp BP Pulse Ox
36.8 C 59 22 98/66 97
06/19/24 07:30 06/19/24 12:00 06/19/24 12:00 06/19/24 12:00 06/19/24 11:36
Lab Results
06/19/24 05:43
06/19/24 05:43
PT 40.9 Sec (11.4-14.6) H 06/19/24 05:43
INR 4.32 06/19/24 05:43
Sodium 130 mmol/L (135-145) L 06/19/24 05:43
Potassium 4.4 mmol/L (3.5-5.1) 06/19/24 05:43
BUN 53 mg/dl (9-20) H 06/19/24 05:43
Glucose 353 mg/dl (70-99) H 06/19/24 05:43
Calcium 7.9 mg/dl (8.4-10.2) L 06/19/24 05:43
Wgi-F-Vqkqvrhtskj Pept 4400 pg/ml 06/18/24 16:12
Vitamin B12 884 pg/ml (239-931) 06/18/24 16:12
Patient Allergies
No Known Allergies Allergy (Verified 06/18/24 16:01)
Physical Exam
-
AAOx3, speech clear, language intact
VFF, EOMI, face symmetric
full strength b/l UE/LE
sensation intact to touch
Medications
-
Active Medications
Generic Name Dose Route Start Last Admin
Trade Name Freq PRN Reason Stop Dose Admin
Acetaminophen 650 mg 06/18/24 22:56
Acetaminophen 325 Mg Tablet PO 07/16/24 22:55
Q4HPRN PRN
mild pain/OROPEZA/temp> 100.4F
Albuterol 2 puff 06/18/24 22:56
Albuterol Hfa [90 Mcg/Dose] Inhaler INH
R Q6HPRN PRN
sob
Protocol
Aspirin 81 mg 06/19/24 08:00 06/19/24 08:34
Aspirin 81 Mg (Enteric Coated) Tablet PO 07/17/24 07:59 81 mg
DAILY KARISSA Administration
Atorvastatin Calcium 80 mg 06/19/24 08:00 06/19/24 08:34
Atorvastatin (Lipitor) 80 Mg Tablet PO 07/17/24 07:59 80 mg
DAILY KARISSA Administration
Carvedilol 12.5 mg 06/19/24 08:00 06/19/24 08:35
Carvedilol 12.5 Mg Tablet PO 07/17/24 07:59 12.5 mg
BID KARISSA Administration
Dapagliflozin 10 mg 06/19/24 08:00 06/19/24 08:35
Dapagliflozin (Farxiga) 10 Mg Tablet PO 07/17/24 07:59 10 mg
DAILY KARISSA Administration
Dextrose 12.5 grams 06/18/24 22:56
Dextrose 50% (0.5 Grams/Ml) 50 Ml Syringe IV 07/16/24 22:55
[id number] PRN
hypoglycemia
Protocol
Furosemide 40 mg 06/19/24 08:00 06/19/24 08:38
Furosemide 40 Mg Tablet PO 07/17/24 07:59 40 mg
BID KARISSA Administration
Gabapentin 600 mg 06/19/24 08:00 06/19/24 08:34
Gabapentin 300 Mg Capsule PO 07/17/24 07:59 600 mg
DAILY KARISSA Administration
Glucagon 1 mg 06/18/24 22:56
Glucagon 1 Mg Vial IM 07/16/24 22:55
PRN PRN
hypoglycemia
Protocol
Insulin Glargine 10 units/ 0.1 mls @ 0 mls/hr 06/18/24 22:56 06/19/24 00:01
Device SC 07/16/24 22:55 0.1 mls
HS KARISSA Administration
As Directed
Insulin Glargine 10 units/ 0.1 mls @ 0 mls/hr 06/19/24 08:00 06/19/24 08:34
Device SC 07/17/24 07:59 0.1 mls
DAILY KARISSA Administration
As Directed
Insulin Aspart 0 units 06/19/24 07:30 06/19/24 09:10
Insulin Aspart Low Resistance 300 Units/3 Ml Pen.Injctr SC 07/17/24 07:29 5 units
AC KARISSA Administration
Protocol
Insulin Aspart 5 units 06/19/24 07:30 06/19/24 09:10
Insulin Aspart (100 Units/Ml) 3 Ml Flexpen SC 07/17/24 07:29 5 units
AC KARISSA Administration
Magnesium 84 mg 06/19/24 08:00 06/19/24 08:35
Magnesium Lactate 84 Mg Tablet PO 07/17/24 07:59 84 mg
BID KARISSA Administration
Sodium Chloride 0 flush 06/18/24 23:00
Sodium Chloride 0.9% (Flush) Syringe IV 07/16/24 22:59
PER PROTOCOL KARISSA
Home Medications
�Medication �Instructions �Recorded
aspirin 81 mg tablet,delayed 81 mg PO DAILY Heart disease 07/06/09
release
zolpidem 10 mg tablet 10 mg PO HS Sleep 04/22/19
furosemide 40 mg tablet 40 mg PO BID Fluid 05/19/19
retention/Swelling
gabapentin 600 mg tablet 600 mg PO HS Neurological Condition 07/09/20
(Neurontin)
carvedilol 12.5 mg tablet 12.5 mg PO BID Heart Failure ##30 07/14/20
albuterol sulfate 90 mcg/actuation 2 puff inhalation R Q6HPRN PRN sob 06/18/24
aerosol inhaler
atorvastatin 80 mg tablet 80 mg PO DAILY 06/18/24
dapagliflozin propanediol 10 mg 10 mg PO DAILY 06/18/24
tablet (Farxiga)
hydralazine 25 mg tablet 25 mg PO TID 06/18/24
insulin detemir U-100 100 unit/mL 20 unit SC BID@0800,1700 Diabetes 06/18/24
(3 mL) subcutaneous pen (Levemir
FlexTouch U-100 Insulin)
insulin lispro 100 unit/mL 5 unit SC AC 06/18/24
subcutaneous pen (Humalog KwikPen
(U-100) Insulin)
magnesium oxide 400 mg PO BID 06/18/24
sacubitril 97 mg-valsartan 103 mg 1 tab PO BID 06/18/24
tablet (Entresto)
spironolactone 25 mg tablet 25 mg PO QPM 06/18/24
warfarin 7.5 mg tablet 5 mg PO QPM 06/18/24
[2024-06-19 12:30] LABS: Glucose - Point of Care 136 mg/dl (70-99)
[2024-06-19] MEDS: NOVOLOG FLEXPEN SC (12:32)
[2024-06-19] MEDS: NOVOLOG FLEXPEN-LOW RESISTANCE SC ×2 (12:33→16:05)
--- NOTE | 2024-06-19 13:59 | W.PN.HOSP.TC ---
Today's Communication/Plan
-
CVA tx - already with supratherapeutic INR, asa, statin
IV Lasix 40mg BID; Cards on board
MRCP
GI consulted
F/u fever and WBC curve
Assessment / Plan
Assessment / Plan
Temp Pulse Resp BP Pulse Ox
98.2 F 63 16 115/64 94
06/19/24 07:30 06/19/24 08:00 06/19/24 08:00 06/19/24 08:00 06/19/24 08:00
GEN: NAD. AAO to person, place and situation
HEENT: EOMI, MMM; PERRLA (Right eye only left eye with lens implant),
LUNGS: RA. CTA B/L without wheeze or rales
CV: SR on tele, low amplitude. Reg, S1/S2, no murmur
ABD: soft, BS+, NT, ND
EXT: +3 hard pitting B/L LE edema. B/L calf wounds and left foot wound at first MTP joint.
NEURO: Gross non-focal
SKIN: Warm, dry and pink. No rash
#Acute metabolic encephalopathy
� Does have acute/subacute infarct although not clear if this was causing acute confusion; remains afebrile
� Appears to be back to baseline
�Follow fever curve, white count
� Urine culture no growth, flu, COVID-negative
-no fevers
-F/u MRCP
�TSH, B12 within normal limits
#CVA
� Acute/subacute infarct in the right periventricular white matter/centrum semiovale region
� Already on warfarin and aspirin, statin�no changes
� Neurology consulted
� Carotids unremarkable
#Transaminitis
� Nonspecific, thickened gallbladder wall
� Dilation of the CBD with a CBD calculus
� MRCP ordered
� GI consulted
#Acute on chronic HFrEF
EF 15-20% per 2 weeks ago
-IV Lasix 40mg BID
-Cards on board
-Continue carvedilol 12.5 mg twice daily, Farxiga 10 mg daily with hold parameters (can hold if bp cannot tolerate)
-Hold spironolactone hold Entresto will hold hydralazine 25 mg 3 times daily
#Supratherapeutic INR on Coumadin for LV thrombus
Recent LV thrombus Dx 2 weeks ago [facility]
--HOLD Coumadin today
#Hyponatremia�hypervolemic current CHF
NA 129
-monitor with diuresis
#GHAZAL on ckd3
-probable cardiorenal
Creat 1.6, prior creat 0.8 in 2020
-Follow BMP
-holding Entresto, spironolactone
#DM 2/diabetic neuropathy
BS 212, Accu-Cheks with SSI, check HgbA1c
Continue Levemir half dose 10 units subcu twice daily lispro 5 units with meals
-Continue gabapentin 600 mg daily
#HLD
Check lipid profile
#Nicotine dependence
-Patient currently has nicotine dip in his mouth he was made aware of strong incidence of oral cancers but he does not care
DVT prophylaxis
History of current LV thrombus with supratherapeutic INR hold Coumadin today
Full code
Total time spent on today's encounter was 50 minutes which included time spent in counseling the patient/family regarding diagnosis and treatment plan as listed above, goals of care, and symptom management. Case was discussed with nursing staff,
specialists, and care coordinators/case management. All labs and imaging personally reviewed by me. Remainder the time spent in detailed review of previous records, lab data, imaging, and other medical provider documentation.
Anticipated Discharge: > 48 hours
Subjective/Interval History
-
Date of Service: June 19, 2024
mental status improved
Objective Data
-
Labs:
Laboratory Results
06/19/24
05:43
WBC 11.7 H
Hgb 12.0 L
Hct 35.7 L
Plt Count 281
PT 40.9 H
INR 4.32
Sodium 130 L
Potassium 4.4
Chloride 98
Carbon Dioxide 21 L
BUN 53 H
Creatinine 1.5 H
Glucose 353 H
Calcium 7.9 L
Total Bilirubin 1.3
AST 55
ALT 59 H
Alkaline Phosphatase 319 H
Vital Signs:
Vital Signs
Temp Pulse Resp BP Pulse Ox
98.2 F 59 22 98/66 97
06/19/24 07:30 06/19/24 12:00 06/19/24 12:00 06/19/24 12:00 06/19/24 11:36
I&O
06/18/24 06/19/24 06/20/24
06:59 06:59 06:59
Output Total 200 / 200
Balance -200 / -200
Review of Systems
-
History Source: Patient
All other systems: Not reviewed unless documented
Data Reviewed
-
Diagnostic Radiology: Report Reviewed by me
CT Scan: Report Reviewed by me
MRI: Report Reviewed by me
Labs: Labs Reviewed by me
[2024-06-19] MEDS: LASIX 40 MG IV (16:03)
--- NOTE | 2024-06-19 16:52 | CM ---
assistant branch operations manager reviewed patient's chart and met with patient and spouse at bedside, patient lives with spouse and son in a one story home, 2 steps to enter, patient is independent with adl's and ambulation, patient recently started using crutches,
patient drives, works.
PCP: Dr. Raymond Sherwood
Pharmacy: [facility].
Plan; Physical therapy are recommending acute rehab with review with patient.
[2024-06-19 17:07] LABS: Glucose - Point of Care 130 mg/dl (70-99)
[2024-06-19] MEDS: FLAGYL 500 MG 100 IV (17:12)
--- NOTE | 2024-06-19 19:05 | CON.GI ---
Consultation
-
Date/Time Consultation Requested: 06/19/24
Date/Time Consultation Performed: 06/19/24
Requesting Provider: Dr Cardenas
Performing Provider: Dr Russell
Reason for Consultation: abnormal abd US
Medical History
Chief Complaint / HPI
Chief Complaint: slurred speech
History of Present Illness:
Samuel is a 63yo M with h/o DM, CHF, CAD and NICM who was brought to ER on by for abnormal speech and confusion. He lives with his and was recently discharged from [facility] / for SOB and CHF with Echo showing EF of 15%
with LV thrombus. He was started on warfarin and recently asked to hold it due to high INR. When his noticed this yesterday he was brought to ER. He currently denies abd pain, jaundice, fever, vomiting, nausea, or wt loss. He does have
chronic reflux and heartburn. He denies constipation, diarrhea or blood in stools. He has never had gallbladder issues in the past.
Past Medical History
Past Medical History: Other (DM, CHF, NICM, CAD CKD3, tobacco chewing)
Past Surgical History: Orthopedic and Other (Left heart cath, colonoscopy)
Social History
Alcohol: None
Drug: None
Personal:
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
Family History
Family History: Other (Father CVA and [place]. Mother [place]. Sister brain cancer. Brother prostate cancer)
Allergies / Home Medications
Allergy/AdvReac Type Severity Reaction Status Date / Time
No Known Allergies Allergy Verified 06/18/24 16:01
�Medication �Instructions �Recorded
aspirin 81 mg tablet,delayed 81 mg PO DAILY Heart disease 07/06/09
release
zolpidem 10 mg tablet 10 mg PO HS Sleep 04/22/19
furosemide 40 mg tablet 40 mg PO BID Fluid 05/19/19
retention/Swelling
gabapentin 600 mg tablet 600 mg PO HS Neurological Condition 07/09/20
(Neurontin)
carvedilol 12.5 mg tablet 12.5 mg PO BID Heart Failure ##30 07/14/20
albuterol sulfate 90 mcg/actuation 2 puff inhalation R Q6HPRN PRN sob 06/18/24
aerosol inhaler
atorvastatin 80 mg tablet 80 mg PO DAILY 06/18/24
dapagliflozin propanediol 10 mg 10 mg PO DAILY 06/18/24
tablet (Farxiga)
hydralazine 25 mg tablet 25 mg PO TID 06/18/24
insulin detemir U-100 100 unit/mL 20 unit SC BID@0800,1700 Diabetes 06/18/24
(3 mL) subcutaneous pen (Levemir
FlexTouch U-100 Insulin)
insulin lispro 100 unit/mL 5 unit SC AC 06/18/24
subcutaneous pen (Humalog KwikPen
(U-100) Insulin)
magnesium oxide 400 mg PO BID 06/18/24
sacubitril 97 mg-valsartan 103 mg 1 tab PO BID 06/18/24
tablet (Entresto)
spironolactone 25 mg tablet 25 mg PO QPM 06/18/24
warfarin 7.5 mg tablet 5 mg PO QPM 06/18/24
Review of Systems
-
All other systems: A 12 pt ROS was Negative except as stated above in HPI
Vital Signs
Temp Pulse Resp BP Pulse Ox
97.7 F 74 16 123/75 96
06/19/24 15:00 06/19/24 15:00 06/19/24 15:00 06/19/24 15:00 06/19/24 15:00
Physical Exam
Exam
GEN: No acute distress, conversant, pleasant
HEENT: anicteric, extraocular movements intact, clear oropharynx without exudates
GI: soft, non-distended, not tender to palpation, normal active bowel sounds, no hepatosplenomegaly
EXT: warm, well perfused, 2+ edema bilaterally, skin tears over arms bilaterally
NEURO: AAOx3, non-focal
Results
WBC 11.7 10^3/uL (4.8-10.8) H 06/19/24 05:43
Hgb 12.0 g/dL (13.0-18.0) L 06/19/24 05:43
Hct 35.7 % (39.0-52.0) L 06/19/24 05:43
MCV 85.0 fL (80.0-94.0) 06/19/24 05:43
Plt Count 281 10^3/uL (130-400) 06/19/24 05:43
Absolute Neuts (auto) 9.7 10^3/uL (1.4-6.5) H 06/19/24 05:43
PT 40.9 Sec (11.4-14.6) H 06/19/24 05:43
INR 4.32 06/19/24 05:43
Sodium 130 mmol/L (135-145) L 06/19/24 05:43
Potassium 4.4 mmol/L (3.5-5.1) 06/19/24 05:43
Chloride 98 mmol/L (98-107) 06/19/24 05:43
Carbon Dioxide 21 mmol/L (22-30) L 06/19/24 05:43
BUN 53 mg/dl (9-20) H 06/19/24 05:43
Creatinine 1.5 mg/dL (0.7-1.3) H 06/19/24 05:43
Calcium 7.9 mg/dl (8.4-10.2) L 06/19/24 05:43
Total Bilirubin 1.3 mg/dl (0.2-1.3) 06/19/24 05:43
AST 55 U/L (17-59) 06/19/24 05:43
ALT 59 U/L (0-50) H 06/19/24 05:43
Alkaline Phosphatase 319 U/L (38-126) H 06/19/24 05:43
Diagnostic Image Results:
Abd US Cholelithiasis. Thickened gallbladder wall, which is nonspecific, but please correlate with symptoms that suggest acute cholecystitis. Negative sonographic Sanchez's sign.
Dilation of the common bile duct with a common bile duct calculus.
Liver length is top-normal. No evidence for focal hepatic lesion.
Simple cyst arising in the left kidney.
Prior GI Procedures:
EGD: none prior
10/2023 Colonoscopy: Dr Daniels. ext internal hemorrhoids, pandiverticulosis, 3m cecal, abnormal tissue behind ICV, 5mm sigmoid polyp, 5mm rectal polyp. TI normal Path with all tubular adenoma
Assessment / Plan
-
Edwardo is a 63yo M retired with h/o CAD, CHF, and DM who presents with altered speech and confusion found to have CVA. GI consulted for elevated LFTs and abnormal US showing choledocholithiasis. He has NO abd pain or signs of cholangitis (other than
leukocytosis). He appears to be recovering speech and cognitive function today per .
Impression
- Choledocholithiasis
- Leukocytosis
- CVA
- CAD
- CHF
- DM
- GERD
- HTN
- HL
- H/o colonic polyps
Recommendations
- Start IV abx (cipro/flagyl)
- Blood culture
- C/w diet
- Would benefit from ERCP once INR is <2
- Case d/w Dr Murry and MRCP not needed given clear evidence of choledocholithiasis on Abd US.
- Trend LFTs
- Continue to hold warfarin
- Protonix 40mg IV daily
updated bedside. Will follow with you.
Data Reviewed
-
Radiology: Report Reviewed by me
Ultrasound: Report Reviewed by me
-
-
Thank you for consultation and allowing me to participate in the patient's care. Please call the process controls technician GI physician during the after hours with any questions or concerns.
[2024-06-19] MEDS: COREG 6.25 MG PO (21:06)
[2024-06-19] MEDS: CIPRO 200 MG 100 IV (21:07)
[2024-06-19 21:34] LABS: Glucose - Point of Care 211 mg/dl (70-99)
--- NOTE | 2024-06-19 21:51 | PTCARENOTE ---
Upon neuro assessment, this RN noted full hemaniopia on left side. Per patient, this is is baseline due to prior retinal detachment. documented in neuro flow sheet
[2024-06-19] MEDS: TYLENOL 650 MG PO (22:42)
--- NOTE | 2024-06-19 22:52 | PTCARENOTE ---
patient febrile at 101.1. PRN tylenol administered. Provider notified. Blood cultures ordered
[2024-06-20] VITALS (8 sets, daily range): BP systolic 103–132; BP diastolic 63–72; PULSE 73; O2SAT 95–98; BMI 27.7
--- NOTE | 2024-06-20 03:14 | PTCARENOTE ---
AAO x 4. Agitated, at times. Speech is clear, spontaneous, and logical. Tongue is midline. 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 KENDALL with 5/5 bilateral upper strengths, 4/5 bilateral lower strengths. patient does complain of neuropathy
characterized as burning. Febrile overnight. PRN tylenol administered. x 2 sets of blood cultures drawn. Results pending. Temp responsive to Tylenol AEB temp of 100.5. OOB x 1 with RW. Bed in lowest position. Bed alarm on. Call dillard and personal
belongings within reach.
[2024-06-20] MEDS: FLAGYL 500 MG 100 IV ×2 (04:13→17:23)
[2024-06-20 08:06] LABS: % Basophils 0.3 % (0-2); % Eosinophils 0.1 % (0-6); % Immature Granulocytes 0.4 % (0-0.5); % Monocytes 8.6 % (1.7-9.3); % Neutrophils 86.6 % (42.2-75.2); Absolute Lymphocytes 0.4 10^3/uL (1.2-3.4); Absolute Monocytes 0.9 10^3/uL (0.1-0.6); Absolute Neutrophils 9.5 10^3/uL (1.4-6.5); Hematocrit 33.2 % (39.0-52.0); Hemoglobin 11.2 g/dL (13.0-18.0); Mean Corp Hgb Conc. 33.7 g/dL (33.0-37.0); Mean Corpuscular Hgb 28.6 pg (27.0-31.0); Mean Corpuscular Volume 84.9 fL (80.0-94.0); Mean Platelet Volume 10.7 fL (7.4-10.4); Nucleated Red Blood Cells % 0 % (-); Platelet Count 284 10^3/uL (130-400); Red Blood Cell Count 3.91 10^6/uL (4.70-6.10); Red Cell Dist. Width 16.2 % (11.5-14.5); White Blood Cell Count 10.9 10^3/uL (4.8-10.8)
[2024-06-20 08:07] LABS: INR 2.09
[2024-06-20 08:18] LABS: Glucose - Point of Care 87 mg/dl (70-99)
[2024-06-20] MEDS: NOVOLOG FLEXPEN-LOW RESISTANCE SC ×3 (08:20→17:21)
[2024-06-20] MEDS: NOVOLOG FLEXPEN 5 UNITS SC ×2 (08:20→17:22)
[2024-06-20] MEDS: COREG 6.25 MG PO ×2 (08:31→20:11)
[2024-06-20 08:43] LABS: ALT (SGPT) 58 U/L (0-50); AST (SGOT) 58 U/L (17-59); Albumin 2.7 g/dl (3.5-5.0); Alkaline Phosphatase 318 U/L (38-126); Blood Urea Nitrogen 50 mg/dl (9-20); Calcium 7.9 mg/dl (8.4-10.2); Carbon Dioxide 22 mmol/L (22-30); Chloride 98 mmol/L (98-107); Estimated Creatinine Clearance 65 ml/min; Glucose 94 mg/dl (70-99); Magnesium 2.3 mg/dl (1.6-2.3); Potassium 4.2 mmol/L (3.5-5.1); Sodium 130 mmol/L (135-145); Total Bilirubin 1.6 mg/dl (0.2-1.3); Total Protein 5.6 g/dl (6.3-8.2); eGFR 55.78
[2024-06-20] MEDS: ASPIR LOW (ENTERIC COATED) 81 MG PO (08:43)
[2024-06-20] MEDS: NEURONTIN 600 MG PO (08:43)
[2024-06-20] MEDS: LIPITOR 80 MG PO (08:43)
[2024-06-20] MEDS: LASIX 40 MG IV ×2 (08:43→17:23)
[2024-06-20] MEDS: FARXIGA 10 MG PO (08:43)
[2024-06-20] MEDS: MAG-TAB SR 84 MG PO ×2 (08:43→20:11)
[2024-06-20] MEDS: CIPRO 200 MG 100 IV ×2 (08:46→20:11)
--- NOTE | 2024-06-20 10:02 | PTCARENOTE ---
At 0830, patient was the PCT for this patient called for help, patient was found on floor in front of toilet in their bathroom. Patient was lying with their right side on the floor and back resting against the wall, their right arm/hand was cradling
their head, patient was awake, alert and answered orientation questions correctly. Patient denied head strike but was unable to provide a clear sequence of events that led to fall. Patient was a heavy assist of 3 to get off the ground and into a
seated position. Patient was returned to bed after using the toilet, bed in lowest position, call dillard within reach.
--- NOTE | 2024-06-20 10:17 | W.PN.GI.CBS2 ---
Addendum entered and electronically signed by Jeny Daniels DO 06/20/24 16:22:
Patient seen and examined independently of PAVING MACHINE OPERATOR. I agree with her note with my additions below
Edwardo is a 63-year-old male with history of CAD found to have an embolic stroke on warfarin. GI consulted for mild leukocytosis, abnormal LFT pattern and imaging concerning for choledocholithiasis. Patient has no abdominal pains, nausea or
vomiting. Patient did have a fever overnight and blood cultures are pending. Yesterday, Dr. Russell placed him on ciprofloxacin and Flagyl.
Currently his INR is 2. His warfarin has been on hold. He will be n.p.o. after midnight for ERCP tomorrow with Dr. Murry
Patient is comfortable with this plan
Original Note:
Today's Communication / Plan
-
s/p fall this AM HCT stable
INR 2.06 cont to trend cont to hold coumadin
Tenative ERCP in AM if INR lower Dr. Russell d/w Dr Murry 06/19 --MRCP not needed given clear evidence of choledocholithiasis on Abd US
LFT's stable
noted fever 101.1 overnight, BP stable
cont abx
blood cx pending
cont diet as tolerated
updated 06/[address] Russell
cont PPI
reviewed with nursing staff
Assessment / Plan
-
Edwardo is a 63yo M retired with h/o CAD, CHF, and DM who presents with altered speech and confusion found to have CVA. GI consulted for elevated LFTs and abnormal US showing choledocholithiasis. He has NO abd pain or signs of cholangitis (other than
leukocytosis). He appears to be recovering speech and cognitive function today per .
Impression
- Choledocholithiasis
- Leukocytosis
- CVA
- CAD
- CHF
- DM
- GERD
- HTN
- HL
- H/o colonic polyps
Recommendations
s/p fall this AM HCT stable
INR 2.06 cont to trend cont to hold coumadin
Tenative ERCP in AM if INR lower Dr. Russell d/w Dr Murry 06/19 --MRCP not needed given clear evidence of choledocholithiasis on Abd US
LFT's stable
noted fever 101.1 overnight, BP stable
cont abx
blood cx pending
cont diet as tolerated
updated 06/[address] Russell
cont PPI
reviewed with nursing staff
Subjective
Subjective
Date of Service: June 20, 2024
some confusion with fall, on cholesterol lowering diet + fever overnight
Objective
Data Reviewed
Laboratory Data:
Laboratory Results
06/20/24 06:41
06/20/24 06:41
Laboratory Results
PT 24.0 Sec (11.4-14.6) H 06/20/24 06:41
INR 2.09 D 06/20/24 06:41
Magnesium 2.3 mg/dl (1.6-2.3) 06/20/24 06:41
Total Bilirubin 1.6 mg/dl (0.2-1.3) H 06/20/24 06:41
AST 58 U/L (17-59) 06/20/24 06:41
ALT 58 U/L (0-50) H 06/20/24 06:41
Alkaline Phosphatase 318 U/L (38-126) H 06/20/24 06:41
Vital Signs and I&O:
Vital Signs
Temp Pulse Resp BP Pulse Ox
98.0 F 75 18 119/66 92
06/20/24 07:08 06/20/24 07:08 06/20/24 07:08 06/20/24 07:08 06/20/24 07:08
I&O
06/19/24 06/20/24 06/21/24
06:59 06:59 06:59
Intake Total 600 / 600
Output Total 200 / 200
Balance -200 / -200 600 / 600
Physical Exam
Physical Exam
HEENT: Anicteric
Cardiology: Normal Sinus Rhythm
Pulmonary: Clear
GI: Soft, Non Distended and Non Tender
Extremities: Edema
Neuro: Non Focal (forgetful to some questions )
--- NOTE | 2024-06-20 11:12 | W.PN.CARDCBS ---
Addendum entered and electronically signed by Zaira Ashley DO 06/20/24 18:29:
I saw and examined the patient.
The Flight Teacher's note was reviewed and I agree with the note.
Comment: Patient seen and examined with cardiac PA. Chart/consultation/telemetry reviewed.Patient sitting out of bed to chair after working with PT. He reportedly had a fall this morning as he stood up to go to the bathroom without preceding
symptoms. Denies pain following fall. Denies headache, shortness of breath or chest pain.
GEN: 63-year-old gentleman appears older than stated age; room air. Out of bed to chair
LUNGS: Bronchovesicular breath sounds decreased but clear
CV: Regular. Positive S1-S2. No murmurs. No rub.
ABD: Soft, nontender. Positive bowel sounds
EXT: +3 hard pitting B/L LE edema.
Plan:
Unwitnessed fall this morning going to the bathroom
-Fortunately does not appear to have an injury. Currently being assessed by PT
-Neurology consulted
-CT head 06/20/2024 without acute abnormality
-No tacky/bradycardia arrhythmias on telemetry around time of fall.
-Check orthostatic vitals
-Reviewed fall risk reduction strategies with patient and have instructed him not to get up without nursing assist
Tiny nonhemorrhagic acute/subacute infarct in the right periventricular white matter/centrum semiovale region by MRI 06/19/2024
-Neurology consulted
-Continue Coumadin anticoagulation
-Statin therapy placed on hold with elevated LFTs
-Continue telemetry monitoring
Acute on chronic heart failure with reduced ejection fraction
-EF was 15% by echo at [facility] in 05/30/2024 with reported LV thrombus.
-Repeat echo with [facility] pending this admission.
-Outpatient dose of Coreg has been lowered to 6.25 mg BID for hypotension
-Outpatient dose of Entresto 97/103 mg BID has been on hold since admission due to hypotension
-Outpatient dose of spironolactone 25 mg daily has been on hold since admission due to hypotension
-Outpatient dose of Farxiga 10 mg daily has been continued
-Continue IV Lasix
-Monitor lab work for renal function, sodium, electrolytes. Keep K greater than 4, mag greater than 2
-Pending response could consider right heart catheterization.
-I's/O's, daily weights. Heart failure education
-Additionally we will consider repeat ischemic evaluation at some point in the future. Last heart catheterization 2017 with nonobstructive coronary artery disease
-Coumadin anticoagulation initially supratherapeutic.INR 2.02 on 06/20/24. Goal INR 2�3
-Fever
-Patient had fever to 101 overnight now afebrile
-Infectious workup ongoing. Urine culture no growth to date. COVID/flu negative.
-Patient with chronic calf venous wounds followed at [facility] and the left first MTP wound was negative for osteomyelitis by MRI at [facility] last week.
-Elevated LFTs and abnormal abdominal imaging choledocholithiasis and possible cholangitis. GI is consulted with plan for ERCP tomorrow. Currently on IV antibiotics.
-Patient is higher cardiovascular risk for procedures. Per GI, INR ideally less than 2 for procedures. Would not reverse. Plan to start IV heparin once INR less than 2 given recent LV clot and now with MRI imaging of stroke.
Original Note:
Today's Communication / Plan
-
Fall this morning, CT head stable
INR drifting down because warfarin was held for 2 days prior to admission due to recent supratherapeutic outpatient INR
GI wants to do ERCP, but recent LV clot and now with CVA
Check orthostatic VS
Await echo
52 min in coordination of care and face to face
Impression / Plan
-
PCP: Dr. Sherwood
Cardiology: Dr. Ny, last seen 06/2022
Impression:
Admitted with confusion and acute HFrEF 06/18/24
Tiny nonhemorrhagic acute/subacute infarct in the right periventricular white matter/centrum semiovale region by MRI 06/19/2024
Recent admission to [facility] for acute HF and foot wound 06/06/24 until 06/12/24
Hypotension
Acute HFrEF
CM EF 15% by echo at [facility] 06/07/24
h/o improved NICM EF 25% by echo 03/2018 and then improved to 40% by echo 06/2022
Nonobstructive CAD by cath 2017
Medication noncompliance
Newly diagnosed LV thrombus
1.5 x 1.2 cm LV apical clot on echo at [facility] 06/07/24
Chronic warfarin managed by [facility]
started for LV clot 06/07/24
Supratherapeutic INR on admission
Hyponatremia
GHAZAL on CKD 3a
Elevated LFTs
Chews tobacco
Unwitnessed fall
Echo 05/30/2024: [facility] study, EF 15 to 20%, severe global hypokinesis and septal dyskinesis, small and organized thrombus in the LV apex measuring 1.5 x 1.2 cm, grade 3 diastolic dysfunction, at least mildly dilated RV with reduced
systolic function, mild to moderate MR, mild pericardial effusion seen posteriorly without evidence of tamponade
Echo 06/20/24: [facility] study, pending
Plan:
-Patient had an unwitnessed fall 06/20/24. He says he stood up to go to the bathroom and did not feel lightheaded and then in the bathroom he says he fell suddenly but does not think he tripped and denies passing out. Tele reviewed by me and no
arrhythmia or pause. CT head 06/20/2024 without acute abnormality
-Patient was hypotensive 06/19/24 and has been diuresing with Lasix 40 mg IV BID.
-Check orthostatic VS
-EF was 15% by echo at [facility] in 05/30/2024. Repeat echo with [facility] pending this admission
-Patient with known history of an ICM and EF down to 25% in 2017, then improved to 40% by last echo 06/2022 followed by noncompliance for unclear reasons and EF now down to 15%.
-No CP, but consideration for repeat ischemic evaluation. Patient had nonobstructive CAD by cardiac cath in 2018
-Outpatient dose of Coreg has been lowered to 6.25 mg BID for hypotension
-Outpatient dose of Entresto 97/103 mg BID has been on hold since admission due to hypotension
-Outpatient dose of spironolactone 25 mg daily has been on hold since admission due to hypotension
-Outpatient dose of Farxiga 10 mg daily has been continued
-Patient with new LV clot by echo at [facility] 05/30/2024. Will repeat echo now with [facility]
-INR 2.02 on 06/20/24 and this is due to recent supratherapeutic INR and directions from [facility] Coumadin clinic to hold warfarin dosing just prior to admission.
-[facility] manages INRs that are drawn at [facility] and the goal is 2-3.
-Fever overnight. Patient with chronic calf venous wounds followed at wound care center and the left first MTP wound was negative for osteomyelitis by MRI at [facility] last week.
-GI note reviewed and they are recommending and ERCP. Will reach out to GI to see what level they want INR for procedure. Patient with LV clot and CVA.
-Talked with patient's daughter by phone for 19 minutes, she is in school to become an RN. It sounds as though patient is noncompliant at home and is dismissive and angry towards family who tried to help him. Patient retired from his job recently
and it sounds as though that is when most of the medication noncompliance started. Perhaps patient would benefit from an antidepressant. Patient denies drinking and his family confirms this.
HPI: Patient came to [facility] from home yesterday with confusion and garbled speech and was admitted for acute HF and cardiology has been consulted. Patient is a poor historian and gave me permission to call his daughter. Also reviewed 67 pages of
records from recent [facility] admission. Patient had NICM diagnosed in 2018 and with GDMT his EF improved to 40% by last echo at in 06/2022. Patient then stopped coming to cardiology appts at , but reportedly did not start following elsewhere.
Patient then retired and stopped taking his medications on a regular schedule despite reminders from family. Patient started with LE wounds 02/2024 and following with wound care center and seemed to be improving. Patient then started with a cough
and saw his PCP 05/02/24 and lungs were clear and he was started on promethazine and albuterol. Patient was then admitted to [facility] with SOB 06/06/24 and during that admission was found to have EF down to 15% and he had a new LV clot and was started
on warfarin. Patient was also d/c'd to home on Coreg, Entresto and spironolactone which are meds he had been on when he was last seen in the cardiology office in 2022. Patient was diuresed with Lasix IV and d/c'd to home on Lasix 40 mg PO BID.
Patient's daughter reports that patient was not taking meds at home and when VN came to see him he had garbled speech and was sent to the ER.
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
Subjective
Date of Service: June 20, 2024
He denies feeling dizzy
Objective
Labs:
06/20/24 06:41
06/20/24 06:41
Labs
Hgb 11.2 g/dL (13.0-18.0) L 06/20/24 06:41
Hct 33.2 % (39.0-52.0) L 06/20/24 06:41
Plt Count 284 10^3/uL (130-400) 06/20/24 06:41
PT 24.0 Sec (11.4-14.6) H 06/20/24 06:41
INR 2.09 D 06/20/24 06:41
Sodium 130 mmol/L (135-145) L 06/20/24 06:41
Potassium 4.2 mmol/L (3.5-5.1) 06/20/24 06:41
BUN 50 mg/dl (9-20) H 06/20/24 06:41
Creatinine 1.4 mg/dL (0.7-1.3) H 06/20/24 06:41
Glucose 94 mg/dl (70-99) 06/20/24 06:41
Vital Signs and I&O:
Vital Signs
Temp Pulse Resp BP Pulse Ox
98.0 F 75 18 119/66 92
06/20/24 07:08 06/20/24 07:08 06/20/24 07:08 06/20/24 07:08 06/20/24 07:08
Vital Signs
Temp Pulse Resp BP Pulse Ox
98.0 F 75 18 119/66 92
06/20/24 07:08 06/20/24 07:08 06/20/24 07:08 06/20/24 07:08 06/20/24 07:08
Intake & Output
06/18/24 06/19/24 06/20/24 06/21/24
06:59 06:59 06:59 06:59
Intake Total 600 / 600
Output Total 200 / 200
Balance -200 / -200 600 / 600
Physical Exam
Physical Exam
GEN: NAD. AAO to person, place and situation
HEENT: EOMI, MMM
LUNGS: RA. No audible wheeze
CV: SR on tele
ABD: ND
EXT: +2 hard pitting B/L LE edema.
NEURO: Gross non-focal
SKIN: Warm, dry and pink. No rash
[2024-06-20 12:01] LABS: Glucose - Point of Care 58 mg/dl (70-99)
--- NOTE | 2024-06-20 12:41 | CM ---
Chart reviewed and physical therapy are still recommending acute rehab, options reviewed with patient and patient has selected [facility], case checker reached out to physician for physiatry consult.
Plan; Acute rehab referral sent to [facility]. Needs Auth.
[2024-06-20] MEDS: NOVOLOG FLEXPEN SC (12:46)
[2024-06-20 12:49] LABS: Glucose - Point of Care 71 mg/dl (70-99)
--- NOTE | 2024-06-20 13:45 | W.PN.HOSP.TC ---
Today's Communication/Plan
-
ERCP tomorrow if INR <2
Cont abx
IV lasix, monitoring renal function
Assessment / Plan
Assessment / Plan
Temp Pulse Resp BP Pulse Ox
98.2 F 63 16 115/64 94
06/19/24 07:30 06/19/24 08:00 06/19/24 08:00 06/19/24 08:00 06/19/24 08:00
GEN: NAD. AAO to person, place and situation
HEENT: EOMI, MMM; PERRLA (Right eye only left eye with lens implant),
LUNGS: RA. CTA B/L without wheeze or rales
CV: SR on tele, low amplitude. Reg, S1/S2, no murmur
ABD: soft, BS+, NT, ND
EXT: +3 hard pitting B/L LE edema. B/L calf wounds and left foot wound at first MTP joint.
NEURO: Gross non-focal
SKIN: Warm, dry and pink. No rash
#Acute metabolic encephalopathy
� Does have acute/subacute infarct + sepsis
� Appears to be back to baseline/improving
�Follow fever curve, white count
� Urine culture no growth, flu, COVID-negative
-no fevers
�TSH, B12 within normal limits
#SIRS with infectious etiology
-2/2 to possible cholangitis with evidence of #Choledocholithiasis
-iv abx
-ERCP tomorrow once INR<2
-F/u cultures
#Fall
- head ct wnl
-PT/OT
#CVA
� Acute/subacute infarct in the right periventricular white matter/centrum semiovale region
� Already on warfarin and aspirin, statin�no changes
� Neurology consulted
� Carotids unremarkable
#Transaminitis
� Dilation of the CBD with a CBD calculus
� ERCP tomorrow
� GI consulted
-See plan above
#Acute on chronic HFrEF
EF 15-20% per 2 weeks ago
-IV Lasix 40mg BID
-Cards on board
-Continue carvedilol 12.5 mg twice daily, Farxiga 10 mg daily with hold parameters (can hold if bp cannot tolerate)
-Hold spironolactone hold Entresto will hold hydralazine 25 mg 3 times daily
#Supratherapeutic INR on Coumadin for LV thrombus
Recent LV thrombus Dx 2 weeks ago [facility]
--HOLD Coumadin today
#Hyponatremia�hypervolemic current CHF
NA 129
-monitor with diuresis
#GHAZAL on ckd3
-probable cardiorenal
Creat 1.6, prior creat 0.8 in 2020
-Follow BMP
-holding Entresto, spironolactone
#DM 2/diabetic neuropathy
BS 212, Accu-Cheks with SSI, check HgbA1c
Continue Levemir half dose 10 units subcu twice daily lispro 5 units with meals
-Continue gabapentin 600 mg daily
#HLD
Check lipid profile
#Nicotine dependence
-Patient currently has nicotine dip in his mouth he was made aware of strong incidence of oral cancers but he does not care
DVT prophylaxis
History of current LV thrombus with supratherapeutic INR hold Coumadin today
Full code
Total time spent on today's encounter was 51 minutes which included time spent in counseling the patient/family regarding diagnosis and treatment plan as listed above, goals of care, and symptom management. Case was discussed with nursing staff,
specialists, and care coordinators/case management. All labs and imaging personally reviewed by me. Remainder the time spent in detailed review of previous records, lab data, imaging, and other medical provider documentation.
Anticipated Discharge: > 48 hours
Subjective/Interval History
-
Date of Service: June 20, 2024
fell this am - no head strike
Objective Data
-
Labs:
Laboratory Results
06/20/24
06:41
WBC 10.9 H
Hgb 11.2 L
Hct 33.2 L
Plt Count 284
PT 24.0 H
INR 2.09 D
Sodium 130 L
Potassium 4.2
Chloride 98
Carbon Dioxide 22
BUN 50 H
Creatinine 1.4 H
Glucose 94
Calcium 7.9 L
Total Bilirubin 1.6 H
AST 58
ALT 58 H
Alkaline Phosphatase 318 H
Vital Signs:
Vital Signs
Temp Pulse Resp BP Pulse Ox
99.6 F 72 18 103/63 95
06/20/24 11:37 06/20/24 11:37 06/20/24 11:37 06/20/24 11:37 06/20/24 11:37
I&O
06/19/24 06/20/24 06/21/24
06:59 06:59 06:59
Intake Total 600 / 600
Output Total 200 / 200
Balance -200 / -200 600 / 600
Review of Systems
-
History Source: Patient
All other systems: Not reviewed unless documented
Data Reviewed
-
Diagnostic Radiology: Report Reviewed by me
CT Scan: Report Reviewed by me
Ultrasound: Report Reviewed by me
MRI: Report Reviewed by me
Labs: Labs Reviewed by me
--- NOTE | 2024-06-20 14:23 | W.PN.UPDATE ---
Update Note
Progress Note Update
TT communication with the GI rounding team regarding need for ERCP and therapeutic warfarin OAC. GI would prefer INR less than 2 for ERCP. INR is 2.02 today. Warfarin has been on hold since 2 days prior to admission and we will continue to hold.
If INR is less than 2 tomorrow we should start a heparin drip due to LV clot and acute/subacute CVA seen on MRI this admission.
--- NOTE | 2024-06-20 15:20 | CARDSERVLU ---
Echocardiogram with [facility] completed after protocol screening completed. Allergies verified.
Patent IV site: _Right arm cephalic 18 G PC____
IV site flushed with 0.9% NaCl pre and post administration.
Diluted bolus method utilized to enhance visualization of ventricular cheung.
Total volume given: _3___ mL
Patient tolerated all procedures well without complications.
[2024-06-20 16:47] LABS: Glucose - Point of Care 110 mg/dl (70-99)
[2024-06-20] MEDS: TYLENOL 650 MG PO (20:13)
[2024-06-20 22:55] LABS: Glucose - Point of Care 129 mg/dl (70-99)
[2024-06-20] MEDS: LANTUS 0.05 UNITS SC (23:00)
[2024-06-21] VITALS (11 sets, daily range): BP systolic 91–130; BP diastolic 62–77; BMI 27.4
[2024-06-21] MEDS: FLAGYL 500 MG 100 IV ×2 (06:12→17:53)
[2024-06-21 08:08] LABS: Glucose - Point of Care 145 mg/dl (70-99)
--- NOTE | 2024-06-21 08:29 | PHA.VAN.IN ---
Assessment
- Assessment
Renal Function: Unknown baseline
Concomitant Antimicrobials: ciprofloxacin, metronidazole
- Previous Dosing Experience
Previous Regimen: Vanc 1500mg Q12H
Date of Regimen: July 2020
Provided Trough of: 13
Provided AUC of: 440
Patient's SCR is: Elevated compared to previous dosing experience (SCR 1.6 --> 1.4 vs ~0.8)
Patient's weight is: Similar to previous dosing experience
Regimen provided the following additional patient-specific risk factors:
ke = 0.0659
half-life = 10.5H
Cmax = 25.3 mcg/ml
Cmin = 12.7 mcg/ml
Vd = 103 L
Vanc Cl = 133 ml/min
Plan
- Plan
Initial / Loading Dose: 1250mg x2 doses - first now then 1800 as a divided load
Maintenance Regimen: dosing by level
Monitorin/15 06
Pharmacokinetics Vancomycin I
- -
Patient Age: 63
Patient Sex: Male
Vancomycin Day #: 1
Indication: Bacteremia
Requesting Provider: Dr. Caceres
Pertinent Antimicrobial Allergies:
NKDA
Height / Weight:
Height 6 ft 4 in
Actual Weight 102.087 kg
Pertinent Past Medical History: CKD, DM2
- Vital Signs / Lab Results
Temp Pulse Resp BP Pulse Ox
99.2 F 68 18 121/75 95
06/21/24 07:16 06/21/24 07:16 06/21/24 07:16 06/21/24 07:16 06/21/24 07:16
Lab Results - Hematology
06/18/24 06/19/24 06/20/24
16:12 05:43 06:41
WBC 10.9 H 11.7 H 10.9 H
Lab Results - Chemistry
06/18/24 06/19/24 06/20/24
16:12 05:43 06:41
BUN 50 H 53 H 50 H
Creatinine 1.6 H 1.5 H 1.4 H
Estimated Creat Clear 57 60 65
Albumin 3.4 L 2.6 L 2.7 L
06/18/24
16:12
Lactic Acid 1.4
Lab Results - Urine
06/18/24
16:51
Urine Nitrite (Reflex) Negative
Leukocyte Esterase Rfl Negative
Urine WBC (Reflex) 6-10
Ur Squamous Epith Cells 3-5
Urine Bacteria (Reflex) Moderate A
Microbiology Results
06/20/24 01:59 Blood Culture - Preliminary
Blood/Venous Staphylococcus aureus
Gram Stain - Preliminary
06/20/24 00:42 Blood Culture - Preliminary
Blood/Venous Positive culture in progress
Gram Stain - Preliminary
06/18/24 16:51 Urine Culture - Final
Urine NO GROWTH
[2024-06-21] MEDS: NOVOLOG FLEXPEN-LOW RESISTANCE SC ×2 (08:30→14:27)
[2024-06-21] MEDS: NEURONTIN 600 MG PO ×2 (08:34→20:23)
[2024-06-21] MEDS: FARXIGA 10 MG PO (08:34)
[2024-06-21] MEDS: LIPITOR 80 MG PO (08:34)
[2024-06-21] MEDS: MAG-TAB SR 84 MG PO ×2 (08:34→20:23)
[2024-06-21] MEDS: ASPIR LOW (ENTERIC COATED) 81 MG PO (08:34)
[2024-06-21] MEDS: COREG 6.25 MG PO ×2 (08:34→20:23)
[2024-06-21] MEDS: NOVOLOG FLEXPEN SC (08:36)
[2024-06-21] MEDS: LANTUS SC (08:37)
[2024-06-21] MEDS: CIPRO 200 MG 100 IV ×2 (08:40→21:00)
[2024-06-21 08:47] LABS: % Basophils 0.4 % (0-2); % Eosinophils 0.3 % (0-6); % Immature Granulocytes 0.8 % (0-0.5); % Lymphocytes 5.6 % (20.5-51.1); % Monocytes 8.7 % (1.7-9.3); % Neutrophils 84.2 % (42.2-75.2); Absolute Immature Granulocytes 0.1 10^3/uL (0-0.05); Absolute Lymphocytes 0.6 10^3/uL (1.2-3.4); Absolute Neutrophils 9.4 10^3/uL (1.4-6.5); Hematocrit 34.9 % (39.0-52.0); Hemoglobin 11.6 g/dL (13.0-18.0); Mean Corp Hgb Conc. 33.2 g/dL (33.0-37.0); Mean Corpuscular Hgb 28.2 pg (27.0-31.0); Mean Corpuscular Volume 84.9 fL (80.0-94.0); Mean Platelet Volume 9.4 fL (7.4-10.4); Nucleated Red Blood Cells % 0 % (-); Platelet Count 286 10^3/uL (130-400); Red Blood Cell Count 4.11 10^6/uL (4.70-6.10); Red Cell Dist. Width 16.3 % (11.5-14.5); White Blood Cell Count 11.2 10^3/uL (4.8-10.8)
[2024-06-21 08:53] LABS: INR 2.07; PT 23.5 Sec (11.4-14.6)
[2024-06-21 09:25] LABS: ALT (SGPT) 55 U/L (0-50); AST (SGOT) 74 U/L (17-59); Albumin 2.8 g/dl (3.5-5.0); Alkaline Phosphatase 319 U/L (38-126); Blood Urea Nitrogen 50 mg/dl (9-20); Calcium 8.1 mg/dl (8.4-10.2); Carbon Dioxide 22 mmol/L (22-30); Chloride 97 mmol/L (98-107); Estimated Creatinine Clearance 70 ml/min; Glucose 117 mg/dl (70-99); Potassium 4.6 mmol/L (3.5-5.1); Sodium 129 mmol/L (135-145); Total Bilirubin 2.1 mg/dl (0.2-1.3); Total Protein 5.8 g/dl (6.3-8.2); eGFR > 60.00
[2024-06-21] MEDS: LASIX 40 MG IV ×2 (10:36→19:25)
[2024-06-21] MEDS: VANCOCIN 275 MG IV ×2 (10:50→19:21)
--- NOTE | 2024-06-21 11:05 | W.PN.CARDCBS ---
Today's Communication / Plan
-
ERCP today
Continue IV Lasix
Monitor INR and start heparin once INR less than 2
Monitor hemodynamics closely given severe cardiomyopathy/heart failure in the setting of sepsis/bacteremia
Impression / Plan
-
PCP: Dr. Sherwood
Cardiology: Dr. Ny, last seen 06/2022
Impression:
Admitted with confusion and acute HFrEF 06/18/24
Tiny nonhemorrhagic acute/subacute infarct in the right periventricular white matter/centrum semiovale region by MRI 06/19/2024
Recent admission to [facility] for acute HF and foot wound 06/06/24 until 06/12/24
Hypotension
Acute HFrEF
CM EF 15% by echo at [facility] 06/07/24
h/o improved NICM EF 25% by echo 03/2018 and then improved to 40% by echo 06/2022
Nonobstructive CAD by cath 2017
Medication noncompliance
Newly diagnosed LV thrombus
1.5 x 1.2 cm LV apical clot on echo at [facility] 06/07/24
Chronic warfarin managed by [facility]
started for LV clot 06/07/24
Supratherapeutic INR on admission
Hyponatremia
GHAZAL on CKD 3a
Elevated LFTs
Chews tobacco
Unwitnessed fall
Echo 05/30/2024: [facility] study, EF 15 to 20%, severe global hypokinesis and septal dyskinesis, small and organized thrombus in the LV apex measuring 1.5 x 1.2 cm, grade 3 diastolic dysfunction, at least mildly dilated RV with reduced
systolic function, mild to moderate MR, mild pericardial effusion seen posteriorly without evidence of tamponade
Echo 06/20/24 with IV echo contrast: LV ejection fraction severely reduced, 15-20% with global hypokinesis. Dilated, hypokinetic right ventricle. Biatrial dilatation. Mild MR. Mild to moderate TR. Estimated pulmonary artery systolic pressure
50-55 mmHg. Small pericardial effusion without evidence of hemodynamic compromise. No LV apical thrombus
Plan:
Acute on chronic heart failure with reduced ejection fraction/hyponatremia
-EF was 15% by echo at [facility] in 05/30/2024 with reported LV thrombus---> repeat echo done yesterday reviewed with patient and family members. EF remains similar however left ventricular apical thrombus not present
-Blood pressures are better today however patient is scheduled for ERCP. Will reevaluate patient's blood pressures after anesthesia prior to adding back goal-directed medical therapy for chronic heart failure
-Outpatient dose of Farxiga 10 mg daily has been continued
-Outpatient dose of Coreg 12.5 mg twice daily has been lowered to 6.25 mg BID for hypotension -no further titration at this point
-Outpatient dose of Entresto 97/103 mg BID has been on hold since admission due to hypotension/sepsis
-Outpatient dose of spironolactone 25 mg daily held for acute renal insufficiency/hypotension/sepsis
-Continue IV Lasix
-Monitor lab work for renal function, sodium, electrolytes. Keep K greater than 4, mag greater than 2
-I's/O's, daily weights. Heart failure education
-Pending response could consider right heart catheterization.
-Additionally we will consider repeat ischemic evaluation at some point in the future. Last heart catheterization 2018 with nonobstructive coronary artery disease
-Coumadin anticoagulation initially supratherapeutic.INR 2.02 on 06/20/24. Goal INR 2�3
Tiny nonhemorrhagic acute/subacute infarct in the right periventricular white matter/centrum semiovale region by MRI 06/19/2024
-Neurology consulted
-Patient's affect appears much clearer today and he is more interactive; family agrees
-He had a unwitnessed fall yesterday ambulating in the bathroom without injury and fortunately CT of the head without acute abnormality. At the time of his fall, there was no tacky or bradycardia arrhythmia on telemetry.
-Started on Coumadin anticoagulation 06/07/2024 for LV apical thrombus
-INR today 2.07; will transition to IV heparin for possible procedures next week
-No history of atrial fibrillation
-Continue telemetry monitoring
-Continue atorvastatin 80 mg daily
-PT/OT
Fever/sepsis/bacteremia
-Last fever yesterday afternoon 100.6.
-Patient with chronic calf venous wounds followed at wound care center and the left first MTP wound was negative for osteomyelitis by MRI at [facility] last week
-Blood and LE wound cultures positive for Staph aureus, MSSA in wound/ blood sensitivities pending
-Urine culture no growth; COVID and flu swabs negative
-IV antibiotics
-Wound care
-Consider ID consult
-Elevated LFTs and abnormal abdominal imaging choledocholithiasis and possible cholangitis.
-Increasing LFTs�will hold atorvastatin
-GI is consulted with plan for ERCP today
Type 2 diabetes mellitus, uncontrolled with hemoglobin A1c 10.8%, with diabetic osteomyelitis/neuropathy/renal insufficiency
-Consider involvement of diabetic nurse practitioner
-Importance of improved glycemic control strongly advised
HPI: Patient came to [facility] from home yesterday with confusion and garbled speech and was admitted for acute HF and cardiology has been consulted. Patient is a poor historian and gave me permission to call his daughter. Also reviewed 67 pages of
records from recent [facility] admission. Patient had NICM diagnosed in 2018 and with GDMT his EF improved to 40% by last echo at in 06/2022. Patient then stopped coming to cardiology appts at , but reportedly did not start following elsewhere.
Patient then retired and stopped taking his medications on a regular schedule despite reminders from family. Patient started with LE wounds 02/2024 and following with wound care center and seemed to be improving. Patient then started with a cough
and saw his PCP 05/02/24 and lungs were clear and he was started on promethazine and albuterol. Patient was then admitted to [facility] with SOB 06/06/24 and during that admission was found to have EF down to 15% and he had a new LV clot and was started
on warfarin. Patient was also d/c'd to home on Coreg, Entresto and spironolactone which are meds he had been on when he was last seen in the cardiology office in 2022. Patient was diuresed with Lasix IV and d/c'd to home on Lasix 40 mg PO BID.
Patient's daughter reports that patient was not taking meds at home and when [facility] came to see him he had garbled speech and was sent to the ER.
Progress Note - Operating Room Scheduler
Subjective
Date of Service: June 21, 2024
Seen and examined with family at bedside. Overall he appears much more interactive today; offers no complaints. Reports improved shortness of breath
Objective
Labs:
06/21/24 08:21
06/21/24 08:21
Labs
Hgb 11.6 g/dL (13.0-18.0) L 06/21/24 08:21
Hct 34.9 % (39.0-52.0) L 06/21/24 08:21
Plt Count 286 10^3/uL (130-400) 06/21/24 08:21
PT 23.5 Sec (11.4-14.6) H 06/21/24 08:21
INR 2.07 06/21/24 08:21
Sodium 129 mmol/L (135-145) L 06/21/24 08:21
Potassium 4.6 mmol/L (3.5-5.1) 06/21/24 08:21
BUN 50 mg/dl (9-20) H 06/21/24 08:21
Creatinine 1.3 mg/dL (0.7-1.3) 06/21/24 08:21
Glucose 117 mg/dl (70-99) H 06/21/24 08:21
Vital Signs and I&O:
Vital Signs
Temp Pulse Resp BP Pulse Ox
99.2 F 68 18 121/75 95
06/21/24 07:16 06/21/24 07:16 06/21/24 07:16 06/21/24 07:16 06/21/24 07:16
Vital Signs
Temp Pulse Resp BP Pulse Ox
99.2 F 68 18 121/75 95
06/21/24 07:16 06/21/24 07:16 06/21/24 07:16 06/21/24 07:16 06/21/24 07:16
Intake & Output
06/19/24 06/20/24 06/21/24 06/22/24
06:59 06:59 06:59 06:59
Intake Total 600 / 600 960 / 960
Output Total 200 / 200 750 / 750
Balance -200 / -200 600 / 600 210 / 210
Physical Exam
Physical Exam
GEN: 63-year-old gentleman appears older than stated age; room air.
LUNGS: Bronchovesicular breath sounds decreased but clear
CV: Regular. Positive S1-S2. No murmurs. No rub.
ABD: Soft, nontender. Positive bowel sounds
EXT: +3 hard pitting B/L LE edema.
[2024-06-21 12:26] LABS: Glucose - Point of Care 120 mg/dl (70-99)
[2024-06-21] MEDS: NOVOLOG FLEXPEN 5 UNITS SC ×2 (14:27→17:54)
--- NOTE | 2024-06-21 16:02 | PTOTSP ---
Reviewed chart and noted pt had general anesthesia for ERCP today. Will need updated PT/OT orders for continuation of services.
--- NOTE | 2024-06-21 16:27 | CM ---
Chart reviewed and will await PM&R evaluation, referral sent to [place] [facility].
Plan; Acute rehab, referral sent to [place] [facility].
--- NOTE | 2024-06-21 16:36 | W.PN.HOSP.TC ---
Today's Communication/Plan
-
Assessment / Plan
Assessment / Plan
Temp Pulse Resp BP Pulse Ox
98.2 F 63 16 115/64 94
06/19/24 07:30 06/19/24 08:00 06/19/24 08:00 06/19/24 08:00 06/19/24 08:00
GEN: NAD. Awake and alert
HEENT: EOMI, MMM
LUNGS: RA. CTA B/L without wheeze or rales
CV: Sinus rhythm, controlled rate around 70
ABD: soft, BS+, NT, ND
EXT: +3 hard pitting B/L LE edema. B/L calf wounds and left foot wound at first MTP joint.
NEURO: Gross non-focal
SKIN: Warm, dry and pink. No rash
#Acute metabolic encephalopathy
-Resolved
� Does have acute/subacute infarct + sepsis
�Follow fever curve, white count
� Urine culture no growth, flu, COVID-negative
-no fevers
�TSH, B12 within normal limits
#SIRS with infectious etiology
-2/2 to possible cholangitis with evidence of choledocholithiasis
-iv abx
-ERCP today
-F/u cultures
#Choledocholithiasis
-ERCP today with stone identified and removed and biliary sphincterotomy performed
-Follow-up further recommendations from GI
-Clear liquid diet
-Follow LFTs
#Fall
- head ct wnl
-PT/OT
#CVA
� Acute/subacute infarct in the right periventricular white matter/centrum semiovale region
� Already on warfarin and aspirin and statin, warfarin has been on hold for ERCP and will need to be bridged with heparin if needed until therapeutic again following ERCP
� Neurology consulted
� Carotids unremarkable
#Transaminitis
� Secondary to choledocholithiasis, ERCP performed today 06/21
� Follow LFTs after ERCP
� GI following
-See plan above
#Acute on chronic HFrEF
EF 15-20% per 2 weeks ago
-IV Lasix 40mg BID
-Cards on board
-Continue carvedilol 12.5 mg twice daily, Farxiga 10 mg daily with hold parameters (can hold if bp cannot tolerate)
-Hold spironolactone hold Entresto will hold hydralazine 25 mg 3 times daily
#Supratherapeutic INR on warfarin for LV thrombus
-Recent LV thrombus Dx 2 weeks ago [facility]
--HOLD warfarin for ERCP, will bridge with heparin if needed until therapeutic following ERCP
#Hyponatremia�hypervolemic current CHF
-NA 129
-Stable
-monitor with diuresis
#GHAZAL on ckd3
-probable cardiorenal
-Initial creat 1.6, improved to 1.3 today, prior creat 0.8 in 2020
-Follow BMP
-holding Entresto, spironolactone
#DM 2/diabetic neuropathy
-Uncontrolled, hemoglobin A1c 10.8% this admission
-Continue long and short acting insulin regimen with additional sliding scale as needed
-Continue gabapentin 600 mg daily
#HLD
-Continue statin
#Nicotine dependence
-Patient currently has nicotine dip in his mouth he was made aware of strong incidence of oral cancers but he does not care
DVT prophylaxis
History of current LV thrombus with supratherapeutic INR hold warfarin today for ERCP
Full code
Anticipated Discharge: > 48 hours
Subjective/Interval History
-
Date of Service: June 21, 2024
Patient was seen and examined at bedside this morning. Currently comfortable. Awaiting ERCP.
Objective Data
-
Labs:
Laboratory Results
06/21/24
08:21
WBC 11.2 H
Hgb 11.6 L
Hct 34.9 L
Plt Count 286
PT 23.5 H
INR 2.07
Sodium 129 L
Potassium 4.6
Chloride 97 L
Carbon Dioxide 22
BUN 50 H
Creatinine 1.3
Glucose 117 H
Calcium 8.1 L
Total Bilirubin 2.1 H
AST 74 H
ALT 55 H
Alkaline Phosphatase 319 H
Vital Signs:
Vital Signs
Temp Pulse Resp BP Pulse Ox
98.2 F 68 18 121/63 92
06/21/24 15:40 06/21/24 15:40 06/21/24 15:40 06/21/24 15:40 06/21/24 15:40
I&O
06/20/24 06/21/24 06/22/24
06:59 06:59 06:59
Intake Total 600 / 600 960 / 960
Output Total 750 / 750
Balance 600 / 600 210 / 210
Review of Systems
-
History Source: Patient
All other systems: Reviewed and negative
Physical Exam
-
General: No Apparent Distress
[2024-06-21 17:52] LABS: Glucose - Point of Care 271 mg/dl (70-99)
[2024-06-21] MEDS: NOVOLOG FLEXPEN-LOW RESISTANCE 3 UNITS SC (17:54)
[2024-06-21 21:25] LABS: Glucose - Point of Care 256 mg/dl (70-99)
[2024-06-21] MEDS: LANTUS 0.05 UNITS SC (22:07)
[2024-06-22 03:01] VITALS: BP 137/79
[2024-06-22 04:46] LABS: % Basophils 0.1 % (0-2); % Immature Granulocytes 0.3 % (0-0.5); % Lymphocytes 2.7 % (20.5-51.1); % Monocytes 2.6 % (1.7-9.3); % Neutrophils 94.3 % (42.2-75.2); Absolute Immature Granulocytes 0.1 10^3/uL (0-0.05); Absolute Lymphocytes 0.4 10^3/uL (1.2-3.4); Absolute Monocytes 0.4 10^3/uL (0.1-0.6); Absolute Neutrophils 13.7 10^3/uL (1.4-6.5); Hematocrit 41.2 % (39.0-52.0); Hemoglobin 13.7 g/dL (13.0-18.0); Mean Corp Hgb Conc. 33.3 g/dL (33.0-37.0); Mean Corpuscular Hgb 27.9 pg (27.0-31.0); Mean Corpuscular Volume 83.9 fL (80.0-94.0); Mean Platelet Volume 9.9 fL (7.4-10.4); Nucleated Red Blood Cells % 0 % (-); Platelet Count 334 10^3/uL (130-400); Red Blood Cell Count 4.91 10^6/uL (4.70-6.10); Red Cell Dist. Width 16.2 % (11.5-14.5); White Blood Cell Count 14.5 10^3/uL (4.8-10.8)
[2024-06-22 04:59] LABS: INR 1.97; PT 22.6 Sec (11.4-14.6)
[2024-06-22 05:10] LABS: ALT (SGPT) 46 U/L (0-50); AST (SGOT) 50 U/L (17-59); Albumin 2.3 g/dl (3.5-5.0); Alkaline Phosphatase 287 U/L (38-126); Blood Urea Nitrogen 46 mg/dl (9-20); Calcium 7.8 mg/dl (8.4-10.2); Carbon Dioxide 23 mmol/L (22-30); Chloride 98 mmol/L (98-107); Estimated Creatinine Clearance 75 ml/min; Glucose 256 mg/dl (70-99); Potassium 4.9 mmol/L (3.5-5.1); Sodium 132 mmol/L (135-145); Total Bilirubin 1.6 mg/dl (0.2-1.3); Total Protein 5.2 g/dl (6.3-8.2); eGFR > 60.00
[2024-06-22 05:16] LABS: Vancomycin Random 13.8 ug/ml
[2024-06-22] MEDS: FLAGYL 500 MG 100 IV (05:23)
[2024-06-22 05:53] VITALS: BMI 27.6
[2024-06-22 08:02] LABS: Glucose - Point of Care 221 mg/dl (70-99)
[2024-06-22 08:55] VITALS: BP 100/58
[2024-06-22] MEDS: LANTUS 0.05 UNITS SC ×2 (09:29→20:50)
[2024-06-22] MEDS: FARXIGA PO (09:31)
[2024-06-22] MEDS: MAG-TAB SR 84 MG PO ×2 (09:31→20:46)
[2024-06-22] MEDS: ASPIR LOW (ENTERIC COATED) 81 MG PO (09:31)
[2024-06-22] MEDS: COREG PO (09:32)
[2024-06-22] MEDS: NEURONTIN 600 MG PO ×2 (09:32→20:46)
[2024-06-22 09:33] LABS: APTT 43.8 Sec (23.4-35.0)
[2024-06-22] MEDS: NOVOLOG FLEXPEN-LOW RESISTANCE 2 UNITS SC (09:33)
[2024-06-22] MEDS: NOVOLOG FLEXPEN 5 UNITS SC ×2 (09:33→12:40)
[2024-06-22] MEDS: LASIX IV ×2 (09:34→16:44)
[2024-06-22] MEDS: CIPRO 200 MG IV (09:41)
[2024-06-22] MEDS: ANCEF 10 IV (09:42)
--- NOTE | 2024-06-22 10:14 | W.PN.CARDCBS ---
Today's Communication / Plan
-
Re-anticoagulate with warfarin to goal INR 2-3 when OK with GI, neuro and primary service
Continue IV Lasix 40 mg BID
Impression / Plan
-
PCP: Dr. Sherwood
Cardiology: Dr. Ny, last seen 06/2022
Impression:
Admitted with confusion and acute HFrEF 06/18/24
Tiny nonhemorrhagic acute/subacute infarct in the right periventricular white matter/centrum semiovale region by MRI 06/19/2024
Recent admission to [facility] for acute HF and foot wound 06/06/24 until 06/12/24
Hypotension
Acute HFrEF
CM EF 15% by echo at [facility] 06/07/24
h/o improved NICM EF 25% by echo 03/2018 and then improved to 40% by echo 06/2022
Nonobstructive CAD by cath 2017
Medication noncompliance
Newly diagnosed LV thrombus
1.5 x 1.2 cm LV apical clot on echo at [facility] 06/07/24
Chronic warfarin managed by [facility]
started for LV clot 06/07/24
Supratherapeutic INR on admission
Hyponatremia
GHAZAL on CKD 3a
Elevated LFTs
Chews tobacco
Unwitnessed fall
Echo 05/30/2024: [facility] study, EF 15 to 20%, severe global hypokinesis and septal dyskinesis, small and organized thrombus in the LV apex measuring 1.5 x 1.2 cm, grade 3 diastolic dysfunction, at least mildly dilated RV with reduced
systolic function, mild to moderate MR, mild pericardial effusion seen posteriorly without evidence of tamponade
Echo 06/20/24 with IV echo contrast: LV ejection fraction severely reduced, 15-20% with global hypokinesis. Dilated, hypokinetic right ventricle. Biatrial dilatation. Mild MR. Mild to moderate TR. Estimated pulmonary artery systolic pressure
50-55 mmHg. Small pericardial effusion without evidence of hemodynamic compromise. No LV apical thrombus
Plan:
Acute on chronic heart failure with reduced ejection fraction/hyponatremia
EF was 15% by echo at [facility] in 05/30/2024 with reported LV thrombus---> ECHO done here 06/20/24 reviewed with patient and family members. EF remains similar however left ventricular apical thrombus not present. Of note, she is suspected
of having acute TIA with tiny nonhemorrhagic acute/subacute infarct in the right periventricular white matter/centrum semiovale region by MRI 06/19/2024.
Regarding acute on chronic heart failure with reduced ejection fraction:
Maintain Farxiga 10 mg daily has been continued
Coreg 12.5 mg twice daily has been lowered to 6.25 mg BID for hypotension -no further titration at this point
Entresto 97/103 mg BID has been on hold since admission due to hypotension/sepsis, eventually tried to resume if blood pressure allows
Spironolactone 25 mg daily held for acute renal insufficiency/hypotension/sepsis, eventually try to resume if blood pressure allows
Continue IV Lasix 40 mg BID and monitor lab work for renal function, sodium, electrolytes. Keep K greater than 4, mag greater than 2
I's/O's, daily weights. Heart failure education
Pending response could consider right heart catheterization.
Will consider repeat ischemic evaluation at some point in the future given drop in LVEF from 40% in 2022 and now 10-15%. Last heart catheterization 2018 with nonobstructive coronary artery disease
Given prior LV thrombus and acute/subacute CVA/TIA requires ongoing anticoagulation. Warfarin has been on hold for ERCP and will need to be bridged with heparin if needed until therapeutic again following ERCP
ERCP completed 06/21/24.
Re-anticoagulate when OK with GI, neuro and primary service
TIA/CVA: Tiny nonhemorrhagic acute/subacute infarct in the right periventricular white matter/centrum semiovale region by MRI 06/19/2024
Etiology could certainly be the prior LV thrombus which was observed on prior echocardiogram and no longer seen on most recent echocardiogram
Neurology consulted
Fever/sepsis/bacteremia
Elevated LFTs and abnormal abdominal imaging choledocholithiasis and possible cholangitis.
ERCP found filling defect consistent with a stone complete removal was accomplished by biliary sphincterotomy and balloon extraction.
Due to increasing LFTs� still holding atorvastatin
Type 2 diabetes mellitus, uncontrolled with hemoglobin A1c 10.8%, with diabetic osteomyelitis/neuropathy/renal insufficiency
Consider involvement of diabetic nurse practitioner
Importance of improved glycemic control strongly advised
Total time spent today was 54 minutes in preparing to see the patient, seeing the patient and coordination of care. This included review of recent laboratory evaluations, cardiact testing, imaging studies, primary care rtecords, specialty
consultations, hospital records, as well as personally interviewing and examining the patient, which included discussion of their tests, review/ordering medications, and communicating with other healthcare professionals and also treatment planning
as well as counseling.
HPI: Patient came to [facility] from home yesterday with confusion and garbled speech and was admitted for acute HF and cardiology has been consulted. Patient is a poor historian and gave me permission to call his daughter. Also reviewed 67 pages of
records from recent [facility] admission. Patient had NICM diagnosed in 2018 and with GDMT his EF improved to 40% by last echo at in 06/2022. Patient then stopped coming to cardiology appts at , but reportedly did not start following elsewhere.
Patient then retired and stopped taking his medications on a regular schedule despite reminders from family. Patient started with LE wounds 02/2024 and following with wound care center and seemed to be improving. Patient then started with a cough
and saw his PCP 05/02/24 and lungs were clear and he was started on promethazine and albuterol. Patient was then admitted to [facility] with SOB 06/06/24 and during that admission was found to have EF down to 15% and he had a new LV clot and was started
on warfarin. Patient was also d/c'd to home on Coreg, Entresto and spironolactone which are meds he had been on when he was last seen in the cardiology office in 2022. Patient was diuresed with Lasix IV and d/c'd to home on Lasix 40 mg PO BID.
Patient's daughter reports that patient was not taking meds at home and when VN came to see him he had garbled speech and was sent to the ER.
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
Subjective
Date of Service: June 22, 2024
Objective
Labs:
06/22/24 09:15
06/22/24 04:31
Labs
Hgb Cancelled 06/22/24 09:15
Hct Cancelled 06/22/24 09:15
Plt Count Cancelled 06/22/24 09:15
PT 22.6 Sec (11.4-14.6) H 06/22/24 04:31
INR 1.97 06/22/24 04:31
APTT Cancelled 06/22/24 09:15
Sodium 132 mmol/L (135-145) L 06/22/24 04:31
Potassium 4.9 mmol/L (3.5-5.1) 06/22/24 04:31
BUN 46 mg/dl (9-20) H 06/22/24 04:31
Creatinine 1.2 mg/dL (0.7-1.3) 06/22/24 04:31
Glucose 256 mg/dl (70-99) H 06/22/24 04:31
Vital Signs and I&O:
Vital Signs
Temp Pulse Resp BP Pulse Ox
96.8 F L 56 16 100/58 95
06/22/24 08:55 06/22/24 09:32 06/22/24 08:55 06/22/24 09:32 06/22/24 08:55
Vital Signs
Temp Pulse Resp BP Pulse Ox
96.8 F L 56 16 100/58 95
06/22/24 08:55 06/22/24 09:32 06/22/24 08:55 06/22/24 09:32 06/22/24 08:55
Intake & Output
06/20/24 06/21/24 06/22/24 06/23/24
06:59 06:59 06:59 06:59
Intake Total 600 / 600 960 / 960 505 / 505
Output Total 750 / 750 2220 / 2220
Balance 600 / 600 210 / 210 -1715 / -1715
Physical Exam
Physical Exam
GEN: No distress
LUNGS: Bronchovesicular breath sounds decreased but clear
CV: Regular. Positive S1-S2. No murmurs. No rub.
ABD: Soft, nontender. Positive bowel sounds
EXT: +3 hard pitting B/L LE edema.
[2024-06-22] MEDS: HEPARIN 25000 UNITS/250 ML IV ×2 (10:57→23:57)
--- NOTE | 2024-06-22 10:58 | W.PN.GI.CBS2 ---
Today's Communication / Plan
-
can advance to diabetic diet, GI s/o.
Assessment / Plan
-
Edwardo is a 63yo M retired with h/o CAD, CHF, and DM who presents with altered speech and confusion found to have CVA. GI consulted for elevated LFTs and abnormal US showing choledocholithiasis. He has NO abd pain or signs of cholangitis (other than
leukocytosis). He appears to be recovering speech and cognitive function today per .
s/p ERCP and extraction of multiple small stones, tolerated procedure well. Denies abdo pain, tolerating CLD. LFT trending down. Can advance to diabetic diet. Will s/o.
Total Time Spent with Patient (in minutes): 35
Subjective
Subjective
Date of Service: June 22, 2024
Denies abdo pain, tolerating CLD
Objective
Data Reviewed
Laboratory Data:
Laboratory Results
06/22/24 09:15
06/22/24 04:31
Laboratory Results
PT 22.6 Sec (11.4-14.6) H 06/22/24 04:31
INR 1.97 06/22/24 04:31
APTT Cancelled 06/22/24 09:15
Magnesium 2.3 mg/dl (1.6-2.3) 06/20/24 06:41
Total Bilirubin 1.6 mg/dl (0.2-1.3) H 06/22/24 04:31
AST 50 U/L (17-59) 06/22/24 04:31
ALT 46 U/L (0-50) 06/22/24 04:31
Alkaline Phosphatase 287 U/L (38-126) H 06/22/24 04:31
Vital Signs and I&O:
Vital Signs
Temp Pulse Resp BP Pulse Ox
96.8 F L 56 16 100/58 95
06/22/24 08:55 06/22/24 09:32 06/22/24 08:55 06/22/24 09:32 06/22/24 08:55
I&O
06/21/24 06/22/24 06/23/24
06:59 06:59 06:59
Intake Total 960 / 960 505 / 505
Output Total 750 / 750 2220 / 2220
Balance 210 / 210 -1715 / -1715
[2024-06-22 12:36] LABS: Glucose - Point of Care 286 mg/dl (70-99)
[2024-06-22] MEDS: NOVOLOG FLEXPEN-LOW RESISTANCE 3 UNITS SC (12:39)
[2024-06-22 12:45] VITALS: BP 108/80
--- NOTE | 2024-06-22 12:57 | CON.ID ---
Consultation
-
Date/Time Consultation Requested: 06/22/24 8:47
Date/Time Consultation Performed: 06/22/24 12:57
Requesting Provider: Dr Caceres
Performing Provider: Dr Juan
Reason for Consultation: MSSA bacteremia
Chief Complaint / Past History
Chief Complaint
Confusion, garbled speech, episode of staring, leg edema
History of Present Illness
Mr Sanchez is a 63 year old male with history of recent diagnosis of LV thrombus at [facility], CHF with EF 15-20%, DM2, RLE cellulitis who presented here for an episode of staring, garbled speech, confusion and difficulty with balance. Also
lethargy for about a month. Also dspnea on ertion, loss of appetite and bilateral lower extremity edema. Patient denies headache, sore throat, chest pain, palpitations, cough, abdominal pain, nausea, vomiting, diarrhea, urinary symptoms.
Of note with a recent admission to [facility] two weeks ago for CHF with EF 15-20% (declined from baseline of 40%) and LV thrombus and started on coumadin. Also with a chronc calf venous wound, follows at wound care center. L first MTP
wound
Since arrival here patient has been spiking fevers to a Tmax of 101.1, wbc initially 11.7 peaked at 14.5, hgb 13.7, plt 334, L shift is noted, cr 1.6 from baseline of 0.8 now 1.2, a1c 10.8, na 132, t bili 1.6, ast 50, alt 46, alk phos 287, UA with
minimal pyuria, US showed few small gallstones and choledocolithiasis, underwent ERCP, blood cultures x2 from admission obtained 1.5 hours apart both with MSSA. A single repeat culture has been done. 06/20 Echo: no evidence of valvular vegetation,
currently on cefazolin and metronidazole, ID is consulted for assistance with management.
Past History
Additional Past Medical History:
LV thrombus 06/06 - 06/12/2024 [facility]
Worsening cardiomyopathy EF 15-20% June 2024 [facility]
cardiomyopathy EF 40% 06/10/2022
Renal insufficiency
DM2
HLD
chronic systolic CHF
right leg cellulitis,
nicotine dips
Additional Past Surgical History:
Arthroscopic knee surgery right 3 times left 2 times, renal calculi removal, penile implant, back surgery, cataract extraction with detached retina and lens implant left eye
Allergy History:
No Known Allergies Allergy (Verified 06/18/24 16:01)
Medications Reviewed: Yes
Social History
Tobacco: Other (dips tobacco)
Alcohol: None
Drug: None
Family History
Family History: Not Pertinent
Review of Systems
Review of Systems
General: Fever and Chills
All systems: All other systems were reviewed and were negative
Vital Signs
Temp Pulse Resp BP Pulse Ox
96.8 F L 56 16 100/58 95
06/22/24 08:55 06/22/24 09:32 06/22/24 08:55 06/22/24 09:32 06/22/24 08:55
Physical Exam
Physical Exam
Constitutional: No Acute Distress and Chronically Ill
Cardiovascular: Regular Rate and S1/S2; Negative Murmur or Rub
Pulmonary: Clear and Symmetric; Negative Wheezes, Rales or Rhonchi
Gastrointestinal: Soft, Non Tender, Non Distended and Normal Bowel Sounds
Skin: Warm and Dry; Negative Rash or Jaundice
Wound: Other (L great toe necrotic, malodorous, macerated tissue on medially; also with a purulent superficial wound over the L medial MTP, )
Neurological: Awake
Lab / Diagnostic Study Results
06/22/24 09:15
06/22/24 04:31
Abs Immat Gran (auto) 0.1 10^3/uL (0-0.05) H 06/22/24 04:31
Absolute Neuts (auto) 13.7 10^3/uL (1.4-6.5) H 06/22/24 04:31
Absolute Lymphs (auto) 0.4 10^3/uL (1.2-3.4) L 06/22/24 04:31
Absolute Monos (auto) 0.4 10^3/uL (0.1-0.6) 06/22/24 04:31
Absolute Basos (auto) 0.0 10^3/uL (0-0.2) 06/22/24 04:31
Immature Gran % 0.3 % (0-0.5) 06/22/24 04:31
Neutrophils % 94.3 % (42.2-75.2) H 06/22/24 04:31
Lymphocytes % 2.7 % (20.5-51.1) L 06/22/24 04:31
Monocytes % 2.6 % (1.7-9.3) 06/22/24 04:31
Eosinophils % 0.0 % (0-6) 06/22/24 04:31
Basophils % 0.1 % (0-2) 06/22/24 04:31
PT 22.6 Sec (11.4-14.6) H 06/22/24 04:31
INR 1.97 06/22/24 04:31
Lactic Acid 1.4 mmol/L (0.7-2.0) 06/18/24 16:12
Ur Squamous Epith Cells 3-5 /LPF (Few) 06/18/24 16:51
Microbiology Results
Micro:
06/21/24 09:33 Blood Culture - Preliminary
Blood/Venous No Growth in 24 hours- Final report to follow
06/20/24 00:42 Blood Culture - Preliminary
Blood/Venous S aureus-Methicillin Sensitive
Gram Stain - Final
06/20/24 01:59 Blood Culture - Preliminary
Blood/Venous S aureus-Methicillin Sensitive
Gram Stain - Final
06/18/24 16:51 Urine Culture - Final
Urine NO GROWTH
06/18/24 16:11 Influenza Types A & B (HUBER) - Final
Nasal Swab Negative for Influenza A & B, NAAT
Negative results must be combined with clinical observations
and patient history.
Nucleic Acid Amplification test (NAAT)performed on the
[employer] NOW platform.
Assessment / Plan
MSSA Bacteremia
Possible endocarditis
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
CVA
Dm2 uncontrolled
- send second set of blood cultures today
- given timing of blood cultures, history of chronic wounds, suspect true bacteremia, source is most likely the necrotic tissue of the L great toe, unlikely to be from a GI source
- TTE without vegetations
- recommend CLAIR if feasible
- RF ordered, UA not consistent with glomerulonephritis
- cultured purulent area of the medial L great toe wound
- preliminary wound care orders put in, however, happy to defer management to podiatry
- KARLENE
- MRI of the L foot with IV contrast
- start unasyn 3 gm iv q6 hours
- will require a course of home IV antibiotics , duration pending course
- podiatry consult
Choledocholithiasis s/p ERCP
- unasyn as marciano
Care Review
Plan reviewed with: Physician
--- NOTE | 2024-06-22 14:49 | W.PN.UPDATE ---
Update Note
Progress Note Update
Patient seen at bedside
-Left foot cultures pending form ID culture, appreciate input
-NWB LLE, heel touch for transfers
-Await MRI and KARLENE/PVR, appreciate vascular input
-Dressings C/D/I
-Await cardiac clearance
-Plan for OR: Left foot partrial first ray vs TMA pending above studies, likely plan for of 06/24
[2024-06-22] MEDS: UNASYN IV ×2 (15:38→20:47)
[2024-06-22] MEDS: FLUSH (NSS) 1 FLUSH IV (15:38)
[2024-06-22 15:47] VITALS: BP 100/45
--- NOTE | 2024-06-22 16:18 | W.PN.HOSP.TC ---
Today's Communication/Plan
-
Assessment / Plan
Assessment / Plan
Temp Pulse Resp BP Pulse Ox
98.2 F 63 16 115/64 94
06/19/24 07:30 06/19/24 08:00 06/19/24 08:00 06/19/24 08:00 06/19/24 08:00
GEN: NAD. Awake and alert
HEENT: EOMI, MMM
LUNGS: RA. CTA B/L without wheeze or rales
CV: Sinus rhythm, controlled rate around 70
ABD: soft, BS+, NT, ND
EXT: +3 hard pitting B/L LE edema. B/L calf wounds and left foot wound at first MTP joint.
NEURO: Gross non-focal
SKIN: Warm, dry and pink. No rash
# MSSA bacteremia
-Suspect secondary to left hallux wet gangrene, which itself is suspected due to embolic effect
-Continue antibiotics with Unasyn
-Repeat cultures
-Treatment of underlying wet gangrene, appreciate guidance from ID and podiatry
-Check ABIs
-MRI left foot with IV contrast
#Left hallux gangrene:
-Suspect secondary to embolism as also caused stroke
-Continuing anticoagulation with IV heparin, continuing to hold warfarin pending any potential surgical interventions
-Continue local wound care and antibiotics with Unasyn
-Appreciate input from ID and podiatry
#LV thrombus
-Dx 2 weeks prior to arrival [facility], suspect due to severely depressed LVEF
-Had been anticoagulated with warfarin which has been on hold for ERCP, now anticoagulating with IV heparin until INR back within therapeutic range, however we will continue to hold warfarin for now pending evaluation and potential interventions on
left hallux gangrene
#CVA
-Suspect secondary to cardiac emboli
� Acute/subacute infarct in the right periventricular white matter/centrum semiovale region
� Anticoagulated with IV heparin drip, bridged to warfarin following any potential surgical interventions as above
� Neurology consulted
� Carotids unremarkable
-PT OT
#Acute on chronic HFrEF
EF 15-20% per 2 weeks ago
-IV Lasix 40mg BID
-Cards on board
-Continue carvedilol 12.5 mg twice daily, Farxiga 10 mg daily with hold parameters (can hold if bp cannot tolerate)
-Hold spironolactone hold Entresto will hold hydralazine 25 mg 3 times daily
#Choledocholithiasis
-ERCP 06/21 with stone identified and removed and biliary sphincterotomy performed
-Follow-up further recommendations from GI
-Advancing diet to low-carb
-Follow LFTs
#Transaminitis
� Secondary to choledocholithiasis, ERCP performed 06/21
� Resolving after ERCP
� GI following
-See plan above
#GHAZAL on ckd3
-probable cardiorenal
-Initial creat 1.6, improved to 1.2 today, prior creat 0.8 in 2020
-Follow BMP
-holding Entresto, spironolactone
#DM 2/diabetic neuropathy
-Uncontrolled, hemoglobin A1c 10.8% this admission
-Continue long and short acting insulin regimen
-Currently using Lantus 5 units in the morning and 5 units at night, 5 units of short acting insulin with meals, additional sliding scale as needed
-Accu-Cheks, adjust insulin regimen as needed for optimal control
-Continue gabapentin 600 mg daily
#Acute metabolic encephalopathy
-Resolved
� Suspect secondary to CVA and infection
�Follow fever curve, white count
�TSH, B12 within normal limits
#Hyponatremia
�hypervolemic current CHF
-NA 132 today
-Stable
-monitor with diuresis
#HLD
-Continue statin
#Nicotine dependence
-Patient uses dip, encouraged cessation
DVT prophylaxis
History of current LV thrombus, anticoagulating with IV heparin for now
Full code
Anticipated Discharge: > 48 hours
Subjective/Interval History
-
Date of Service: June 22, 2024
Patient was seen and examined at bedside this morning. Minimal discomfort following ERCP yesterday. INR is just below 2.0 today and so we will start anticoagulation with IV heparin. He remains on antibiotic coverage with Unasyn for MSSA
bacteremia, likely source left hallux wet gangrene.
Objective Data
-
Labs:
Laboratory Results
06/22/24 06/22/24 06/22/24
04:31 09:15 17:00
WBC 14.5 H Cancelled
Hgb 13.7 Cancelled
Hct 41.2 Cancelled
Plt Count 334 Cancelled
PT 22.6 H
INR 1.97
APTT 43.8 H Cancelled Pending
Sodium 132 L
Potassium 4.9
Chloride 98
Carbon Dioxide 23
BUN 46 H
Creatinine 1.2
Glucose 256 H
Calcium 7.8 L
Total Bilirubin 1.6 H
AST 50
ALT 46
Alkaline Phosphatase 287 H
Vital Signs:
Vital Signs
Temp Pulse Resp BP Pulse Ox
97.5 F 60 16 100/45 94
06/22/24 15:47 06/22/24 15:47 06/22/24 15:47 06/22/24 15:47 06/22/24 15:47
I&O
06/21/24 06/22/24 06/23/24
06:59 06:59 06:59
Intake Total 960 / 960 505 / 505
Output Total 750 / 750 2220 / 2220
Balance 210 / 210 -1715 / -1715
Review of Systems
-
History Source: Patient
All other systems: Reviewed and negative
Physical Exam
-
General: No Apparent Distress
[2024-06-22] MEDS: NOVOLOG FLEXPEN SC (16:42)
[2024-06-22 16:55] LABS: Glucose - Point of Care 425 mg/dl (70-99)
[2024-06-22 17:54] LABS: Glucose 445 mg/dl (70-99)
[2024-06-22] MEDS: DAKIN'S SOLUTION 0.125% 1/4 STRENGTH 1 ML TOPICAL (18:15)
[2024-06-22 18:16] LABS: APTT 86.6 Sec (23.4-35.0)
[2024-06-22] MEDS: NOVOLOG FLEXPEN-LOW RESISTANCE 6 UNITS SC (18:16)
[2024-06-22] MEDS: NOVOLOG FLEXPEN 7 UNITS SC (18:16)
[2024-06-22 20:14] LABS: Glucose - Point of Care 396 mg/dl (70-99)
[2024-06-22 20:30] VITALS: BP 104/62
[2024-06-22] MEDS: COREG 6.25 MG PO (20:46)
[2024-06-22 22:08] LABS: Glucose - Point of Care 404 mg/dl (70-99)
[2024-06-22 22:49] LABS: Glucose 398 mg/dl (70-99)
[2024-06-22 23:00] VITALS: BP 107/59
--- NOTE | 2024-06-22 23:06 | PTCARENOTE ---
Blood glucose 404. Stat venous blood glucose obtained reading at 396. Provider notified. New orders to be placed for sliding scale insuling coverage.
[2024-06-22] MEDS: NOVOLOG FLEXPEN 10 UNITS SC (23:22)
[2024-06-23] VITALS (11 sets, daily range): BP systolic 98–128; BP diastolic 59–77; BMI 28.1
[2024-06-23 01:24] LABS: Glucose - Point of Care 290 mg/dl (70-99)
[2024-06-23 01:41] LABS: APTT 92.1 Sec (23.4-35.0)
[2024-06-23] MEDS: UNASYN IV ×2 (03:24→08:53)
[2024-06-23 03:33] LABS: Glucose - Point of Care 272 mg/dl (70-99)
[2024-06-23 06:04] LABS: Hematocrit 35.2 % (39.0-52.0); Hemoglobin 12.1 g/dL (13.0-18.0); Mean Corp Hgb Conc. 34.4 g/dL (33.0-37.0); Mean Corpuscular Hgb 28.7 pg (27.0-31.0); Mean Corpuscular Volume 83.4 fL (80.0-94.0); Mean Platelet Volume 9.9 fL (7.4-10.4); Platelet Count 363 10^3/uL (130-400); Red Blood Cell Count 4.22 10^6/uL (4.70-6.10); Red Cell Dist. Width 16.3 % (11.5-14.5); White Blood Cell Count 21.9 10^3/uL (4.8-10.8)
--- NOTE | 2024-06-23 06:14 | PTCARENOTE ---
Patient's weight increased by 4 lbs. IV lasix held x2, during shift on 06/22, due to soft blood pressures. Provider notified.
[2024-06-23 06:26] LABS: ALT (SGPT) 51 U/L (0-50); AST (SGOT) 82 U/L (17-59); Albumin 2.3 g/dl (3.5-5.0); Alkaline Phosphatase 396 U/L (38-126); Blood Urea Nitrogen 52 mg/dl (9-20); Calcium 7.5 mg/dl (8.4-10.2); Carbon Dioxide 26 mmol/L (22-30); Chloride 99 mmol/L (98-107); Estimated Creatinine Clearance 75 ml/min; Glucose 270 mg/dl (70-99); Magnesium 2.4 mg/dl (1.6-2.3); Phosphorus 3.4 mg/dl (2.5-4.5); Potassium 4.4 mmol/L (3.5-5.1); Sodium 130 mmol/L (135-145); Total Protein 4.9 g/dl (6.3-8.2); eGFR > 60.00
--- NOTE | 2024-06-23 07:01 | CON.VAS ---
Consultation
Consultation Request
Date/Time Consultation Requested: 06/23/2024
Date/Time Consultation Performed: 06/23/2024
Requesting Provider: Med
Performing Provider: Ana Luisa
Reason for Consultation: Left toe infection
Medical History
-
Chief Complaint: Left hallux infection
History of Present Illness:
63 yo
Heart failure
DM
Chronic left hallux wound and cellulitis
Recently at [facility]. Studies of LE's performed there and reviewed
Past Medical History
Past Medical History: CHF and IDDM
Allergies / Home Medications
Allergy/AdvReac Type Severity Reaction Status Date / Time
No Known Allergies Allergy Verified 06/18/24 16:01
�Medication �Instructions �Recorded �Confirmed �Type
aspirin 81 mg tablet,delayed 81 mg PO DAILY Heart disease 07/06/09 06/18/24 History
release
zolpidem 10 mg tablet 10 mg PO HS Sleep 04/22/19 06/18/24 History
furosemide 40 mg tablet 40 mg PO BID Fluid 05/19/19 06/18/24 History
retention/Swelling
gabapentin 600 mg tablet 600 mg PO HS Neurological Condition 07/09/20 06/18/24 History
(Neurontin)
carvedilol 12.5 mg tablet 12.5 mg PO BID Heart Failure ##30 07/14/20 06/18/24 Rx
albuterol sulfate 90 mcg/actuation 2 puff inhalation R Q6HPRN PRN sob 06/18/24 06/18/24 History
aerosol inhaler
atorvastatin 80 mg tablet 80 mg PO DAILY 06/18/24 06/18/24 History
dapagliflozin propanediol 10 mg 10 mg PO DAILY 06/18/24 06/18/24 History
tablet (Farxiga)
hydralazine 25 mg tablet 25 mg PO TID 06/18/24 06/18/24 History
insulin detemir U-100 100 unit/mL 20 unit SC BID@0800,1700 Diabetes 06/18/24 06/18/24 History
(3 mL) subcutaneous pen (Levemir
FlexTouch U-100 Insulin)
insulin lispro 100 unit/mL 5 unit SC AC 06/18/24 06/18/24 History
subcutaneous pen (Humalog KwikPen
(U-100) Insulin)
magnesium oxide 400 mg PO BID 06/18/24 06/18/24 History
sacubitril 97 mg-valsartan 103 mg 1 tab PO BID 06/18/24 06/18/24 History
tablet (Entresto)
spironolactone 25 mg tablet 25 mg PO QPM 06/18/24 06/18/24 History
warfarin 7.5 mg tablet 5 mg PO QPM 06/18/24 06/18/24 History
Physical Exam
Vital Signs
Temp Pulse Resp BP Pulse Ox
98.0 F 69 20 113/64 96
06/23/24 03:30 06/23/24 03:30 06/23/24 03:30 06/23/24 03:30 06/23/24 03:30
Lab Results
06/23/24 05:44
06/23/24 05:44
Scc-T-[id number] Pept 4400 pg/ml 06/18/24 16:12
Physical Exam
General: Well Developed
HEENT: Normocephalic
Respiratory: Non Labored Respirations
Skin: Warm
Neuro: AO x 3
Assessment / Plan
-
Left hallux infection with gangrene/wound. Non palp pedal pulses on the left. Abnormal KARLENE at [facility] on 06/08/24. No need to repeat here.
I am recommending LLE a'gram and possible intervention. Antegrade approach for possible tibial/small vessel disease. Technical aspects of this procedure were discussed with him in detail. The benefits and rationale for this approach were discussed
with him in detail. Operative risks were discussed with him in detail including but not limited to bleeding, arterial access site injury, infection, contrast nephropathy, distal embolization and the need for additional procedures.
Bharathi Orosco III, MD
[facility] Vascular Surgery
[phone] (hxie)
Data Reviewed
-
Ultrasound: Image Personally Visualized and interpreted, Report Reviewed by me and Discussed with Patient
Labs: Labs Reviewed by me
[2024-06-23] MEDS: LASIX 20 MG IV (07:11)
[2024-06-23 07:50] LABS: Glucose - Point of Care 270 mg/dl (70-99)
--- NOTE | 2024-06-23 07:58 | W.PN.UPDATE ---
Update Note
Progress Note Update
Worsening Leukocytosis
-Plan for OR today, partial first ray amputation/I&D
-NPO now
-Continue NWB
-Continue ABx
[2024-06-23] MEDS: LASIX IV ×2 (08:44→16:17)
[2024-06-23] MEDS: DAKIN'S SOLUTION 0.125% 1/4 STRENGTH TOPICAL (08:47)
[2024-06-23] MEDS: NEURONTIN 600 MG PO ×2 (08:47→20:22)
[2024-06-23] MEDS: FARXIGA 10 MG PO (08:47)
[2024-06-23] MEDS: MAG-TAB SR 84 MG PO ×2 (08:47→20:22)
[2024-06-23] MEDS: LANTUS 0.07 UNITS SC (08:47)
[2024-06-23] MEDS: ASPIR LOW (ENTERIC COATED) 81 MG PO (08:47)
[2024-06-23] MEDS: COREG 6.25 MG PO (08:48)
[2024-06-23] MEDS: NOVOLOG FLEXPEN-LOW RESISTANCE SC ×2 (09:00→13:20)
[2024-06-23] MEDS: NOVOLOG FLEXPEN SC ×2 (09:01→13:19)
--- NOTE | 2024-06-23 12:48 | W.PN.UPDATE ---
Addendum entered and electronically signed by Isabel Juan MD 06/23/24 13:23:
spoke with Dr Kirkland post operatively
extensive infection with low bleeding from the tissue
revasculariation planned for tomorrow
cultures obtained
switched to meropenem for present
Original Note:
Update Note
Progress Note Update
Patient in the OR during rounds
Chart reviewed
wound culture also notable for S aures as expected
repeat blood cultures no growth to date
tiger texted with Dr Kirkland and Dr Orosco this AM
cancelled KARLENE as done two weeks ago and not needed per Dr Orosco
continue unasyn for now, eventual transition back to cefazolin for s aurues bacteremia
--- NOTE | 2024-06-23 12:49 | W.PN.UPDATE ---
Update Note
Progress Note Update
s/p left partial first ray amputation
-Continue ABx
-For revsac tomorrow with Dr Orosco
-Strict NWB LLE
-Plan for return to OR this week for delayed closure vs washout vs transmetatarsal ampuation
-Dresssings intact, reenforce as needed
[2024-06-23 12:50] LABS: Glucose - Point of Care 226 mg/dl (70-99)
[2024-06-23] MEDS: NOVOLOG vial 3 UNITS SC (13:07)
--- NOTE | 2024-06-23 13:32 | W.PN.CARDCBS ---
Today's Communication / Plan
-
Continuing Lasix today and suspect he will need ongoing diuresis after vascular surgery as he is likely to have some degree of volume load. Will need to keep a close eye on volume as well as renal function as we continue diuresis.
Eventually resumption of oral anticoagulation.
Continuing guideline directed medical therapy for heart failure with reduced ejection fraction as tolerated
Eventual consideration for ischemic evaluation.
Impression / Plan
-
PCP: Dr. Sherwood
Cardiology: Dr. Ny, last seen 06/2022
Impression:
Admitted with confusion and acute HFrEF 06/18/24
Tiny nonhemorrhagic acute/subacute infarct in the right periventricular white matter/centrum semiovale region by MRI 06/19/2024
Recent admission to [facility] for acute HF and foot wound 06/06/24 until 06/12/24
Hypotension
Acute HFrEF
CM EF 15% by echo at [facility] 06/07/24
h/o improved NICM EF 25% by echo 03/2018 and then improved to 40% by echo 06/2022
Nonobstructive CAD by cath 2017
Medication noncompliance
Newly diagnosed LV thrombus
1.5 x 1.2 cm LV apical clot on echo at [facility] 06/07/24
Chronic warfarin managed by [facility]
started for LV clot 06/07/24
Supratherapeutic INR on admission
Hyponatremia
GHAZAL on CKD 3a
Elevated LFTs
Chews tobacco
Unwitnessed fall
Echo 05/30/2024: [facility] study, EF 15 to 20%, severe global hypokinesis and septal dyskinesis, small and organized thrombus in the LV apex measuring 1.5 x 1.2 cm, grade 3 diastolic dysfunction, at least mildly dilated RV with reduced
systolic function, mild to moderate MR, mild pericardial effusion seen posteriorly without evidence of tamponade
Echo 06/20/24 with IV echo contrast: LV ejection fraction severely reduced, 15-20% with global hypokinesis. Dilated, hypokinetic right ventricle. Biatrial dilatation. Mild MR. Mild to moderate TR. Estimated pulmonary artery systolic pressure
50-55 mmHg. Small pericardial effusion without evidence of hemodynamic compromise. No LV apical thrombus
Plan:
Acute on chronic heart failure with reduced ejection fraction/hyponatremia
EF was 15% by echo at [facility] in 05/30/2024 with reported LV thrombus---> ECHO done here 06/20/24 reviewed with patient and family members. EF remains similar however left ventricular apical thrombus not present. Of note, she is suspected
of having acute TIA with tiny nonhemorrhagic acute/subacute infarct in the right periventricular white matter/centrum semiovale region by MRI 06/19/2024.
Regarding acute on chronic heart failure with reduced ejection fraction:
Maintain Farxiga 10 mg daily has been continued
Coreg 12.5 mg twice daily has been lowered to 6.25 mg BID for hypotension -no further titration at this point
Entresto 97/103 mg BID has been on hold since admission due to hypotension/sepsis, eventually tried to resume if blood pressure allows
Spironolactone 25 mg daily held for acute renal insufficiency/hypotension/sepsis, eventually try to resume if blood pressure allows
Weight had come down from 137 pounds to 126 pounds from admission to June 22, 2024, but today weight is back up to 231 pounds
Continue IV Lasix 40 mg BID and monitor lab work for renal function, sodium, electrolytes. Keep K greater than 4, mag greater than 2
Heart failure education
Pending response could consider right heart catheterization.
Will consider repeat ischemic evaluation at some point in the future given drop in LVEF from 40% in 2022 and now 10-15%. Last heart catheterization 2018 with nonobstructive coronary artery disease
Given prior LV thrombus and acute/subacute CVA/TIA requires ongoing anticoagulation. Warfarin has been on hold for ERCP and now vascular surgery which is planned for 06/24.
Re-anticoagulate when OK with GI, neuro, vascular and primary service
TIA/CVA: Tiny nonhemorrhagic acute/subacute infarct in the right periventricular white matter/centrum semiovale region by MRI 06/19/2024
Etiology could certainly be the prior LV thrombus which was observed on prior echocardiogram and no longer seen on most recent echocardiogram
Neurology consulted
Fever/sepsis/bacteremia
Elevated LFTs and abnormal abdominal imaging choledocholithiasis and possible cholangitis.
ERCP found filling defect consistent with a stone complete removal was accomplished by biliary sphincterotomy and balloon extraction.
Due to increasing LFTs� still holding atorvastatin
Left hallux infection with gangrene/wound. Patient describes longstanding wound there.
Evaluated by vascular and podiatry.
Underwent left partial amputation June 23, 2024
Plan for revascularization with vascular surgery June 24, 2024
Antibiotics as per infectious disease
Type 2 diabetes mellitus, uncontrolled with hemoglobin A1c 10.8%, with diabetic osteomyelitis/neuropathy/renal insufficiency
Consider involvement of diabetic nurse practitioner
Importance of improved glycemic control strongly advised
Hyponatremia
As per primary service
Total time spent today was 51 minutes in preparing to see the patient, seeing the patient and coordination of care. This included review of recent laboratory evaluations, cardiact testing, imaging studies, primary care rtecords, specialty
consultations, hospital records, as well as personally interviewing and examining the patient, which included discussion of their tests, review/ordering medications, and communicating with other healthcare professionals and also treatment planning
as well as counseling.
HPI: Patient came to [facility] from home yesterday with confusion and garbled speech and was admitted for acute HF and cardiology has been consulted. Patient is a poor historian and gave me permission to call his daughter. Also reviewed 67 pages of
records from recent [facility] admission. Patient had NICM diagnosed in 2018 and with GDMT his EF improved to 40% by last echo at in 06/2022. Patient then stopped coming to cardiology appts at , but reportedly did not start following elsewhere.
Patient then retired and stopped taking his medications on a regular schedule despite reminders from family. Patient started with LE wounds 02/2024 and following with wound care center and seemed to be improving. Patient then started with a cough
and saw his PCP 05/02/24 and lungs were clear and he was started on promethazine and albuterol. Patient was then admitted to [facility] with SOB 06/06/24 and during that admission was found to have EF down to 15% and he had a new LV clot and was started
on warfarin. Patient was also d/c'd to home on Coreg, Entresto and spironolactone which are meds he had been on when he was last seen in the cardiology office in 2022. Patient was diuresed with Lasix IV and d/c'd to home on Lasix 40 mg PO BID.
Patient's daughter reports that patient was not taking meds at home and when VN came to see him he had garbled speech and was sent to the ER.
Progress Note - Tobacco Feeder Catcher
Subjective
Date of Service: June 23, 2024
Denies chest pain shortness of breath palpitations or dizziness. He finds that his shortness of breath has improved over the past several days.
Objective
Labs:
06/23/24 05:44
06/23/24 05:44
Labs
Hgb 12.1 g/dL (13.0-18.0) L 06/23/24 05:44
Hct 35.2 % (39.0-52.0) L 06/23/24 05:44
Plt Count 363 10^3/uL (130-400) 06/23/24 05:44
PT 22.6 Sec (11.4-14.6) H 06/22/24 04:31
INR 1.97 06/22/24 04:31
APTT 92.1 Sec (23.4-35.0) H 06/23/24 01:23
Sodium 130 mmol/L (135-145) L 06/23/24 05:44
Potassium 4.4 mmol/L (3.5-5.1) 06/23/24 05:44
BUN 52 mg/dl (9-20) H 06/23/24 05:44
Creatinine 1.2 mg/dL (0.7-1.3) 06/23/24 05:44
Glucose 270 mg/dl (70-99) H 06/23/24 05:44
Vital Signs and I&O:
Vital Signs
Temp Pulse Resp BP Pulse Ox
98.7 F 58 9 110/63 97
06/23/24 12:44 06/23/24 12:45 06/23/24 12:45 06/23/24 12:45 06/23/24 12:59
Vital Signs
Temp Pulse Resp BP Pulse Ox
98.7 F 58 9 110/63 97
06/23/24 12:44 06/23/24 12:45 06/23/24 12:45 06/23/24 12:45 06/23/24 12:59
Intake & Output
06/21/24 06/22/24 06/23/24 06/24/24
06:59 06:59 06:59 06:59
Intake Total 960 / 960 505 / 505 960 / 960
Output Total 750 / 750 2220 / 2220 700 / 700
Balance 210 / 210 -1715 / -1715 260 / 260
Physical Exam
Physical Exam
Well-appearing no acute distress resting in bed
Regular rate and rhythm with normal S1 and S2, no S3 no S4 degree 1/6 apical holosystolic murmur and no rubs. PMI is laterally and inferiorly displaced
Lungs are clear to auscultation bilaterally
Extremities show that the left foot is dressed with a dressing clean and dry
Abdomen soft nontender nondistended with normoactive bowel sounds
--- NOTE | 2024-06-23 13:49 | PTCARENOTE ---
Received patient from PACU via bed. Pt AAOX3. Pox: 95% RA. Pt denies pain /SOB. Call dillard within reach. Plan of care ongoing.
[2024-06-23] MEDS: STERILE WATER FOR INJECTION 10 ML IV ×2 (14:05→20:22)
[2024-06-23] MEDS: MERREM 500 MG IV ×2 (14:05→20:22)
[2024-06-23] MEDS: HEPARIN 25000 UNITS/250 ML IV (15:59)
[2024-06-23 16:01] LABS: Glucose - Point of Care 233 mg/dl (70-99)
[2024-06-23] MEDS: TYLENOL 650 MG PO (16:07)
--- NOTE | 2024-06-23 16:53 | W.PN.HOSP.TC ---
Today's Communication/Plan
-
Assessment / Plan
Assessment / Plan
Temp Pulse Resp BP Pulse Ox
98.2 F 63 16 115/64 94
06/19/24 07:30 06/19/24 08:00 06/19/24 08:00 06/19/24 08:00 06/19/24 08:00
GEN: NAD. Awake and alert
HEENT: EOMI, MMM
LUNGS: RA. CTA B/L without wheeze or rales
CV: Sinus rhythm, controlled rate around 70
ABD: soft, BS+, NT, ND
EXT: +3 hard pitting B/L LE edema. B/L calf wounds and left foot wound at first MTP joint.
NEURO: Gross non-focal
SKIN: Warm, dry and pink. No rash
# MSSA bacteremia
-Blood cultures from 06/20 positive for MRSA
-Suspect secondary to left hallux wet gangrene, which itself is suspected due to embolic effect
-Antibiotics switched to meropenem
-Repeat blood cultures from 06/21 and 06/22 with no growth to date
-Treatment of underlying wet gangrene, appreciate guidance from ID and podiatry
-Check ABIs
#Left hallux gangrene:
-Suspect secondary to embolism as also caused stroke
-Purulent drainage positive for Staph aureus
-Status post partial amputation in the OR with podiatry today 06/23
-Plan for revascularization tomorrow 06/24
-Continue local wound care, antibiotic switched to meropenem
-Continuing anticoagulation with IV heparin, warfarin after surgical procedures
-Appreciate input from ID and podiatry
#LV thrombus
-Dx 2 weeks prior to arrival [facility], suspect due to severely depressed LVEF
-Continue anticoagulation with IV heparin, bridged back to warfarin after surgical procedures
#CVA
-Suspect secondary to cardiac emboli
� Acute/subacute infarct in the right periventricular white matter/centrum semiovale region
� Anticoagulated with IV heparin drip, bridged to warfarin following any potential surgical interventions as above
� Neurology consulted
� Carotids unremarkable
-PT OT
#Acute on chronic HFrEF
EF 15-20% per 2 weeks ago
-IV Lasix 40mg BID
-Cards on board
-Continue carvedilol 12.5 mg twice daily, Farxiga 10 mg daily with hold parameters (can hold if bp cannot tolerate)
-Hold spironolactone hold Entresto will hold hydralazine 25 mg 3 times daily
#Choledocholithiasis
-ERCP 06/21 with stone identified and removed and biliary sphincterotomy performed
-Follow-up further recommendations from GI
-Advancing diet to low-carb
-Follow LFTs
#Transaminitis
� Secondary to choledocholithiasis, ERCP performed 06/21
� Resolving after ERCP
� GI following
-See plan above
#GHAZAL on ckd3
-probable cardiorenal
-Initial creat 1.6, improved to 1.2 today, prior creat 0.8 in 2020
-Follow BMP
-holding Entresto, spironolactone
#DM 2/diabetic neuropathy
-Uncontrolled, hemoglobin A1c 10.8% this admission
-Increased Lantus to 5 units in the morning and 7 units at night, increased short acting insulin to 7 units with meals
-Additional sliding scale as needed
-Accu-Cheks, adjust insulin regimen as needed for optimal control
-Continue gabapentin 600 mg daily
#Acute metabolic encephalopathy
-Resolved
� Suspect secondary to CVA and infection
�Follow fever curve, white count
�TSH, B12 within normal limits
#Hyponatremia
�hypervolemic with current CHF
-NA 130 today
-Stable
-monitor with diuresis
#HLD
-Continue statin
#Nicotine dependence
-Patient uses dip, encouraged cessation
DVT prophylaxis
History of current LV thrombus, anticoagulating with IV heparin for now
Full code
Anticipated Discharge: > 48 hours
Subjective/Interval History
-
Date of Service: June 23, 2024
Patient was seen and examined at bedside this morning. Planning OR today with podiatry for partial amputation of left hallux.
Objective Data
-
Labs:
Laboratory Results
06/23/24
05:44
WBC 21.9 H
Hgb 12.1 L
Hct 35.2 L
Plt Count 363
Sodium 130 L
Potassium 4.4
Chloride 99
Carbon Dioxide 26
BUN 52 H
Creatinine 1.2
Glucose 270 H
Calcium 7.5 L
Total Bilirubin 1.0
AST 82 H
ALT 51 H
Alkaline Phosphatase 396 H
Vital Signs:
Vital Signs
Temp Pulse Resp BP Pulse Ox
97.9 F 69 18 102/60 95
06/23/24 15:10 06/23/24 15:10 06/23/24 15:10 06/23/24 15:10 06/23/24 15:10
I&O
06/22/24 06/23/24 06/24/24
06:59 06:59 06:59
Intake Total 505 / 505 960 / 960 50 / 50
Output Total 2220 / 2220 700 / 700
Balance -1715 / -1715 260 / 260 50 / 50
Review of Systems
-
History Source: Patient
All other systems: Reviewed and negative
Physical Exam
-
General: No Apparent Distress
[2024-06-23] MEDS: NOVOLOG FLEXPEN 7 UNITS SC (17:07)
[2024-06-23] MEDS: NOVOLOG FLEXPEN-LOW RESISTANCE 2 UNITS SC (17:07)
[2024-06-23] MEDS: COREG PO (20:22)
[2024-06-23] MEDS: LANTUS 0.05 UNITS SC (20:23)
[2024-06-23] MEDS: MORPHINE SULFATE 2 MG IV (20:23)
[2024-06-23 21:03] LABS: Glucose - Point of Care 183 mg/dl (70-99)
[2024-06-24] MEDS: STERILE WATER FOR INJECTION 10 ML IV ×3 (01:37→19:58)
[2024-06-24] MEDS: MERREM 500 MG IV ×3 (01:37→19:58)
[2024-06-24] MEDS: MORPHINE SULFATE 2 MG IV (01:38)
--- NOTE | 2024-06-24 02:12 | PTCARENOTE ---
AAO x 4, patient can be forgetful. NIH of 3--unchanged from prior assessment. BP soft--evening dose of Coreg held. Heparin gtt at 18 ml/hr running via right forearm IV site. PTT check at 0200. LLE 10/17 pain--prn morphine administered for pain
management. Moderate to large amount of sanguineous drainage from LLE incision; thus, initial post op dressing reinforced with ABD and Kerlix. LLE elevated on pillow. Patient able to wiggle toes, sensations intact. NWB LLE. Patient sitting at edge
of bed with x 1 assist to urinate. Bed in lowest position. Bed alarm on. Call dillard and personal belongings within reach.
[2024-06-24 02:26] LABS: APTT 72.7 Sec (23.4-35.0)
[2024-06-24 02:55] VITALS: BP 124/75
[2024-06-24] MEDS: HEPARIN 25000 UNITS/250 ML IV ×2 (04:33→11:06)
--- NOTE | 2024-06-24 04:53 | PTCARENOTE ---
Patient's post op dressing saturated and dripping bloody drainage. This RN reinforced for second time. LLE elevated on 2 pillows. Provider notified.
--- NOTE | 2024-06-24 05:18 | W.PN.HOSP.TC ---
Today's Communication/Plan
-
pressor support, TTM, Vent mgmt as per ICU
cont abx as per ID
hep gtt
amiodarone gtt
Insulin gtt
Assessment / Plan
Assessment / Plan
Physical Exam
GEN: unresponsive
HEENT: EOMI, MMM
LUNGS: Intubated. CTA B/L without wheeze or rales
CV: Normal sinus rhythm no murmurs gallops
ABD: soft, BS+, NT, ND
EXT: +3 hard pitting B/L LE edema. B/L calf wounds and left foot wound dressing red
NEURO: Nonverbal unresponsive
63M HFrEF CKD3 DM neuropathy HLD Nicotine dependence complicated hospital course with MSSA bacteremia, Left hallux gangrene, CVA suspect 2/2 cardiac emboli LV thrombus. Had partial amputation Lt Hallux Gangrene OR Podiatry 06/23. Patient was
planned for revascularization LLE 06/24 however developed PEA/Vfib arrest after anesthesia induction requiring ACLS. ROSC eventually achieved, patient was subsequently transferred to ICU intubated and requiring pressor support.
06/24/24 PEA/Vfib arrest following Anesthesia Induction
Acute Anoxic Encephalopathy
Underwent 3 rounds of ACLS and 4 defibrillations as per Cardio before ROSC was achieved
transferred to ICU intubated and on pressor support, poor neurologic recovery noted, unresponsive off sedation
cont amiodarone gtt
Associate Professor Eval appreciated
cont pressor support Vent mgmt TTM as per ICU
ECHO post-code appreciated EF 10-15% no significant change from prior ECHO 06/20/24
CT head appreciated no acute abn's
# MSSA bacteremia
-Blood cultures from 06/20 positive for MRSA
-Suspect secondary to left hallux wet gangrene, which itself is suspected due to embolic effect
-Antibiotics switched to meropenem, cont as per ID
-Repeat blood cultures from 06/21 and 06/22 with no growth to date
-Treatment of underlying wet gangrene, appreciate guidance from ID and podiatry
-strict NWB and elevation LLE as per Podiatry
#Left hallux gangrene:
-Suspect secondary to embolism as also caused stroke
-Purulent drainage positive for Staph aureus
-Status post partial amputation in the OR with podiatry today 06/23
-Planed for revascularization 06/24 aborted d/t PE/Vfib arrest as above
-Continue local wound care, empiric meropenem
-Continuing anticoagulation with IV heparin, warfarin held for surgical procedures
-Appreciate input from ID and podiatry
#reported hx LV thrombus
-Dx 2 weeks prior to arrival [facility], suspect due to severely depressed LVEF
-Continue hep gtt
#CVA
- Suspect secondary to cardiac emboli
� Acute/subacute infarct in the right periventricular white matter/centrum semiovale region
� Anticoagulated with IV heparin drip
� Neurology consult appreciated
� Carotids unremarkable
- hold PT OT d/t critical illness requiring ICU care as above
#Acute on chronic HFrEF
EF 15-20% per 2 weeks ago
-received IV Lasix 40mg BID on hold w/ pressor support as above
-Cards on board
-Continue carvedilol 12.5 mg twice daily, Farxiga 10 mg daily with hold parameters (can hold if bp cannot tolerate)
-Hold spironolactone hold Entresto will hold hydralazine 25 mg 3 times daily
#Choledocholithiasis
-ERCP 06/21 with stone identified and removed and biliary sphincterotomy performed
-GI eval appreciated
#Transaminitis
� Secondary to choledocholithiasis, ERCP performed 06/21
� Resolving after ERCP
#GHAZAL on ckd3
-probable cardiorenal
-Initial creat 1.6, improved to 1.2 today, prior creat 0.8 in 2020
-Follow BMP
-holding Entresto, spironolactone
#DM 2/diabetic neuropathy
-Uncontrolled, hemoglobin A1c 10.8% this admission
-DM CORONER eval appreciated
-cont insulin gtt hyperglycemia protocol
-Continue gabapentin 600 mg daily
#Mild Hyponatremia
monitor
#HLD
-Continue statin
#Nicotine dependence
DVT prophylaxis hep gtt
Full code
Poor Prognosis
Total Critical Care Time__50___ minutes. I was immediately available to the patient and staff. I personally examined, reviewed labs, diagnostic images/reports, interpretations, treatment plans, discussed patient care with other providers and
family, patient's Sara daughter Elisabeth and son Andrew (patient unable to make decisions at this time), entered orders as appropriate and documented the medical record.
Anticipated Discharge: > 48 hours
Subjective/Interval History
-
Date of Service: June 24, 2024
Planned for right lower extremity percutaneous revascularization. Procedure aborted after developing PEA/vfib arrest following anesthesia induction requiring ACLS. rosc was achieved. Patient intubated on pressor support was transferred to ICU.
Objective Data
-
Labs:
Laboratory Results
06/24/24 06/24/24 06/24/24
01:56 06:00 08:47
WBC Pending
Hgb Pending
Hct Pending
Plt Count Pending
APTT 72.7 H Pending
Sodium Pending
Potassium Pending
Chloride Pending
Carbon Dioxide Pending
BUN Pending
Creatinine Pending
Glucose Pending
Calcium Pending
Total Bilirubin Pending
AST Pending
ALT Pending
Alkaline Phosphatase Pending
Vital Signs:
Vital Signs
Temp Pulse Resp BP Pulse Ox
99.4 F 81 16 124/75 93
06/24/24 02:55 06/24/24 02:55 06/24/24 02:55 06/24/24 02:55 06/24/24 02:55
I&O
06/22/24 06/23/24 06/24/24
06:59 06:59 06:59
Intake Total 505 / 505 960 / 960 710 / 710
Output Total 2220 / 2220 700 / 700 1700 / 1700
Balance -1715 / -1715 260 / 260 -990 / -990
[2024-06-24 05:46] VITALS: BMI 27.9
[2024-06-24 07:00] VITALS: BP 104/67
[2024-06-24 07:01] LABS: Glucose - Point of Care 179 mg/dl (70-99)
--- NOTE | 2024-06-24 07:35 | W.SUR.PREOP ---
Pre-Operative Surgical Note
-
I have examined this patient prior to the performance of the scheduled procedure.
The patient's condition is unchanged from the time of the current History and
Physical and the patient is able to undergo the scheduled procedure.
[2024-06-24 08:53] LABS: B.E. -1.9 mmol/L; HCO3 21.7 mmol/L (21-28); PCO2 32 mmHg (35-48); PO2 345 mmHg (83-108); pH 7.44 (7.35-7.45)
[2024-06-24 08:58] LABS: Hematocrit 29.7 % (39.0-52.0); Hemoglobin 9.6 g/dL (13.0-18.0); Mean Corp Hgb Conc. 32.3 g/dL (33.0-37.0); Mean Corpuscular Hgb 28.5 pg (27.0-31.0); Mean Corpuscular Volume 88.1 fL (80.0-94.0); Mean Platelet Volume 10.1 fL (7.4-10.4); Platelet Count 328 10^3/uL (130-400); Red Blood Cell Count 3.37 10^6/uL (4.70-6.10); Red Cell Dist. Width 16.4 % (11.5-14.5)
[2024-06-24 09:03] LABS: ALT (SGPT) 33 U/L (0-50); AST (SGOT) 47 U/L (17-59); Alkaline Phosphatase 196 U/L (38-126); Blood Urea Nitrogen 39 mg/dl (9-20); Calcium 9.3 mg/dl (8.4-10.2); Carbon Dioxide 16 mmol/L (22-30); Chloride 104 mmol/L (98-107); Estimated Creatinine Clearance 75 ml/min; Glucose 280 mg/dl (70-99); Potassium 4.8 mmol/L (3.5-5.1); Sodium 134 mmol/L (135-145); Total Bilirubin 1.1 mg/dl (0.2-1.3); Total Protein 4.5 g/dl (6.3-8.2); eGFR > 60.00
[2024-06-24 09:07] LABS: INR 1.94; PT 22.3 Sec (11.4-14.6)
[2024-06-24 09:08] LABS: APTT 46.1 Sec (23.4-35.0)
--- NOTE | 2024-06-24 09:09 | W.SUR.POST ---
Surgical Immediate Post Op
Note
Pre Op Diagnosis: L toe gangrene, PAD
Post Op Diagnosis: L toe gangrene, PAD
Procedure Performed: arterial access L groin, R groin CVC, R radial a line
Primary Surgeon: Bharathi Orosco
Secondary Surgeons: Mj Olmos
Anesthesia: see anesthesia flowsheet
Estimated Blood Loss: 2cc
Fluids: see anesthesia flow sheet
Drains/Shunts: none
Specimens/Cultures: none
Doppler/Duplex/Angio (Y/N): n
Complications: cardiac arrest
Operative Findings: Antegrade L groin access with 5 Fr sheath under US guidance. Patient hypotensive following induction and ultimately experienced cardiac arrest. Procedure aborted. Multiple rounds of ACLS with ROSC. L SFA sheath left in place. R
groin TLC and R radial a line placed for access for code.
[2024-06-24 09:16] LABS: B.E. -7.3 mmol/L; HCO3 19.3 mmol/L (21-28); PCO2 43 mmHg (35-48); PO2 271 mmHg (83-108); pH 7.26 (7.35-7.45)
[2024-06-24 09:41] VITALS: BP 138/91
--- NOTE | 2024-06-24 09:41 | W.PN.CARDCBS ---
Today's Communication / Plan
-
Continue pressors
Consider targeted temperature management
Monitor and manipulate volume status as needed
Impression / Plan
-
PCP: Dr. Sherwood
Cardiology: Dr. Ny, last seen 06/2022
Impression:
Intraoperative PEA/ventricular fibrillation arrest 06/24/2024
Admitted with confusion and acute HFrEF 06/18/24
Tiny nonhemorrhagic acute/subacute infarct in the right periventricular white matter/centrum semiovale region by MRI 06/19/2024
Recent admission to [facility] for acute HF and foot wound 06/06/24 until 06/12/24
Hypotension
Acute HFrEF
CM EF 15% by echo at [facility] 06/07/24
h/o improved NICM EF 25% by echo 03/2018 and then improved to 40% by echo 06/2022
Nonobstructive CAD by cath 2017
Medication noncompliance
Newly diagnosed LV thrombus
1.5 x 1.2 cm LV apical clot on echo at [facility] 06/07/24
Chronic warfarin managed by [facility]
started for LV clot 06/07/24
Supratherapeutic INR on admission
Hyponatremia
GHAZAL on CKD 3a
Elevated LFTs
Chews tobacco
Unwitnessed fall
Echo 05/30/2024: [facility] study, EF 15 to 20%, severe global hypokinesis and septal dyskinesis, small and organized thrombus in the LV apex measuring 1.5 x 1.2 cm, grade 3 diastolic dysfunction, at least mildly dilated RV with reduced
systolic function, mild to moderate MR, mild pericardial effusion seen posteriorly without evidence of tamponade
Echo 06/20/24 with IV echo contrast: LV ejection fraction severely reduced, 15-20% with global hypokinesis. Dilated, hypokinetic right ventricle. Biatrial dilatation. Mild MR. Mild to moderate TR. Estimated pulmonary artery systolic pressure
50-55 mmHg. Small pericardial effusion without evidence of hemodynamic compromise. No LV apical thrombus
Plan:
Admitted with change in mental status and found to have small nonhemorrhagic right hemispheric CVA, recently hospitalized with LV thrombus and acute and chronic HFrEF with left lower extremity wound infection. Also with choledocholithiasis, status
post ERCP and sphincterotomy with stone extraction June 21. Underwent debridement of left foot wound 317, received treatment for acute HFrEF during hospital stay, went for right lower extremity percutaneous revascularization procedure today and
upon induction of anesthesia had pulseless electrical activity degenerating into VF requiring ACLS and ultimately return of spontaneous circulation. Now intubated on pressors in ICU.
PEA/ventricular fibrillation arrest: Successful return of spontaneous circulation, now on multiple pressors, ventilated, with low-grade temp at present, spontaneous respiration but no higher level function at present, having received sedation.
Concern regarding anoxic encephalopathy. Patient currently being considered for targeted temperature management. Await CT scan and decision of critical care. Continue pressors, supportive care
Acute on chronic HFrEF: Urgent echo performed immediately after return of spontaneous circulation shows no obvious change from preop, will continue pressor support, volume management to optimize hemodynamics. May need to hold furosemide.
PAD, foot wound, methicillin sensitive Staph aureus bacteremia: Sheathes still in place, on heparin management as per vascular surgery, Antibiotics per primary team, infectious diseases
Recent right periventricular nonhemorrhagic CVA: Unclear whether cardioembolic
LV thrombus: Not seen on most recent echo,
Choledocholithiasis: ERCP June 21 with sphincterotomy and stone extraction
GHAZAL: Improved, will follow post rest
DM:
Toxic metabolic encephalopathy on admission/possible CVA as contributor
Present at bedside for greater than 1 hour, total time 80 minutes
HPI: Patient came to [facility] from home yesterday with confusion and garbled speech and was admitted for acute HF and cardiology has been consulted. Patient is a poor historian and gave me permission to call his daughter. Also reviewed 67 pages of
records from recent [place] [facility] admission. Patient had NICM diagnosed in 2018 and with GDMT his EF improved to 40% by last echo at in 06/2022. Patient then stopped coming to cardiology appts at , but reportedly did not start following elsewhere.
Patient then retired and stopped taking his medications on a regular schedule despite reminders from family. Patient started with LE wounds 02/2024 and following with wound care center and seemed to be improving. Patient then started with a cough
and saw his PCP 05/02/24 and lungs were clear and he was started on promethazine and albuterol. Patient was then admitted to [facility] with SOB 06/06/24 and during that admission was found to have EF down to 15% and he had a new LV clot and was started
on warfarin. Patient was also d/c'd to home on Coreg, Entresto and spironolactone which are meds he had been on when he was last seen in the cardiology office in 2022. Patient was diuresed with Lasix IV and d/c'd to home on Lasix 40 mg PO BID.
Patient's daughter reports that patient was not taking meds at home and when VN came to see him he had garbled speech and was sent to the ER.
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
Subjective
Date of Service: June 24, 2024:
Patient for left lower extremity peripheral vascular revascularization earlier this morning, had a pulseless electrical arrest upon induction. Received standard CPR with epi, bicarb, degenerated to VF, shock, recurrent VF, loaded with amiodarone,
shocked again, reestablishment of initial junctional rhythm, initially hypertensive then again developed PEA, CPR reinitiated, Levophed and epinephrine drip started, established spontaneous circulation, blood pressure approximately 150 heart rate in
the 80s, making spontaneous respiratory effort otherwise unresponsive. I was present after first few minutes of resuscitative efforts.
Initially admitted with possible TIA, had necrotic toe, amputated, prior LV thrombus at [facility] in May, not present on admission here.
PMH small nonhemorrhagic subacute infarct, right periventricular white matter and centrum semiovale June 2024, hospitalized at [facility] with HFrEF and foot wound until June 12,
EF here for routine 15 to 20%, dilated hypokinetic right ventricle, biatrial dilatation mild MR, mild to moderate TR, pulmonary artery pressure 50-55, ongoing tobacco abuse, nonischemic cardiomyopathy by cath 2017 LV apical thrombus 06/07/2024
104/67, pulse 78, respiratory rate 19, afebrile, sats 95%, intake and output yesterday 1.2 L in 3 L out, weight 103.9 kg, not weighed today, unresponsive, pupils fixed about 4 mm, spontaneous respirations, does not withdraw to pain, lungs relatively
clear, regular rate and rhythm no obvious murmurs JVD okay, intubated, abdomen benign, extremities with left foot wrapped in clean, bleeding, arterial and venous sheaths in place, abdomen benign,
Hemoglobin 9.6, platelets 328, white count 19, INR 1.9,
Initial ABG after code 7.44 with bicarb, second ABG 7.26, 43, 271, 19.3
Sodium 134, potassium 4.8, bicarb 16, BUN 39, creatinine 1.2, bicarb June 23
EKG junctional rhythm, nonspecific ST-T changes, low voltage
Total Time Spent with Patient (in minutes): 80
Objective
Labs:
06/24/24 08:45
06/24/24 08:45
Labs
Hgb 9.6 g/dL (13.0-18.0) L D 06/24/24 08:45
Hct 29.7 % (39.0-52.0) L 06/24/24 08:45
Plt Count 328 10^3/uL (130-400) 06/24/24 08:45
PT 22.3 Sec (11.4-14.6) H 06/24/24 08:45
INR 1.94 06/24/24 08:45
APTT 46.1 Sec (23.4-35.0) H 06/24/24 08:45
APTT Cancelled 06/24/24 08:45
APTT Cancelled 06/24/24 08:45
Sodium 134 mmol/L (135-145) L 06/24/24 08:45
Potassium 4.8 mmol/L (3.5-5.1) 06/24/24 08:45
BUN 39 mg/dl (9-20) H 06/24/24 08:45
Creatinine 1.2 mg/dL (0.7-1.3) 06/24/24 08:45
Glucose 280 mg/dl (70-99) H 06/24/24 08:45
Vital Signs and I&O:
Vital Signs
Temp Pulse Resp BP Pulse Ox
37.6 C 78 19 104/67 95
06/24/24 07:00 06/24/24 07:00 06/24/24 07:00 06/24/24 07:00 06/24/24 07:00
Vital Signs
Temp Pulse Resp BP Pulse Ox
37.6 C 78 19 104/67 95
06/24/24 07:00 06/24/24 07:00 06/24/24 07:00 06/24/24 07:00 06/24/24 07:00
Intake & Output
06/22/24 06/23/24 06/24/24 06/25/24
07:59 07:59 07:59 07:59
Intake Total 505 / 505 960 / 960 710 / 710 480 / 480
Output Total 2220 / 2220 700 / 700 3075 / 3075
Balance -1715 / -1715 260 / 260 -2365 / -2365 480 / 480
Physical Exam
Physical Exam
See above
--- NOTE | 2024-06-24 09:41 | OR.RPT ---
Operative Report
Operative Report
Date of Operation: 06/24/2024
Pre Op Diagnosis:
1. Gangrenous left toe
2. Left foot infection
3. Status post partial first ray resection (Marita)
4. Abnormal lower extremity arterial studies preop suggesting the presence of arterial disease
Post Op Diagnosis:
1. Gangrenous left toe
2. Left foot infection
3. Status post partial first ray resection (Marita)
4. Abnormal lower extremity arterial studies preop suggesting the presence of arterial disease
Procedure:
1. Ultrasound guided percutaneous ANTEGRADE access to the left common femoral artery
2. Aborted lower extremity arteriogram secondary to cardiac arrest
3. Placement of right femoral vein triple lumen catheter
4. Placement of right radial arterial line
Surgeon: Bharathi Orosco III, MD
Stock Hanger: Mj Olmos MD, PGY4
Anesthesia: Sedation/local
Complications: Cardiac arrest/aborted procedure
Estimated Blood Loss: Less than 5 cc
History and Indications for Procedure: 63-year-old male with multiple medical comorbidities. He presented with a chronic nonhealing left foot wound as well as a more acute gangrenous left hallux and associated foot infection. He was taken to the
operating room yesterday by podiatry for a partial first ray resection. I reviewed his preoperative lower extremity arterial studies from [facility] which were abnormal and suggested the presence of arterial disease. He was taken to the operating
room for lower extremity arteriogram and possible endovascular intervention.
Procedure in Detail: Samuel Sanchez was correctly identified and placed supine on the operating table. After adequate induction of anesthesia his bilateral groins were prepped and draped in the usual sterile fashion. He received preoperative
antibiotics. A timeout procedure was performed with the nursing and anesthesia staff confirming the patient's identity as well as the nature and laterality of the procedure.
Under ultrasound guidance I identified the left common femoral artery and femoral bifurcation. Local anesthesia was infiltrated into the proposed puncture site. Under direct ultrasound guidance I accessed the common femoral artery at the femoral
bifurcation and advanced the wire into the superficial femoral artery under fluoroscopic guidance. We then upsized to a 5 Danish sheath over a [employer] wire.
At this point I noted on the monitor that the patient was profoundly hypotensive. We could not feel a pulse in the right femoral artery. There was a rhythm noted on the monitor. ACLS protocol was initiated at this point. The procedure was aborted.
During the ACLS protocol I placed a right femoral vein triple-lumen catheter. In the right groin I accessed the right common femoral vein with the introducer needle. Over the wire the subcutaneous tract was dilated. The triple-lumen catheter was
placed easily. All ports aspirated dark venous appearing blood easily and were flushed with heparinized saline. The line was secured in place at the skin with a suture and sterile dressings were applied.
Once the patient had stabilized I then accessed the right radial artery at the wrist with a micropuncture needle under ultrasound guidance. The wire was advanced easily. The radial A-line cannula from the arrow kit was advanced easily over the
micropuncture needle and into the right radial artery. Pulsatile blood flow was returned and the arterial line was connected for monitoring. The left femoral sheath was disconnected and flushed but secured in place for later removal in the ICU.
Attestation: I was present and responsible for the entire procedure
Signed:
Bharathi Orosco III, MD
[facility] Vascular Surgery
[phone] (qinl)
[2024-06-24 09:45] VITALS: BP 136/77; BMI 28.1
[2024-06-24 09:49] LABS: Troponin I 0.026 ng/ml
[2024-06-24] MEDS: PITRESSIN 100 IV ×2 (10:00→17:46)
[2024-06-24 11:06] LABS: Glucose - Point of Care 302 mg/dl (70-99)
--- NOTE | 2024-06-24 11:11 | W.PN.ID1 ---
Date of Service
Date of Service: June 24, 2024
Today's Communication
- wound care per podiatry
continue meropenem
Assessment / Plan
MSSA Bacteremia
Possible endocarditis
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
PEA/v fib arrest 06/24
CVA
Dm2 uncontrolled
- 06/21 and 06/22 blood cultures remain no growth to date
- given timing of blood cultures, history of chronic wounds, suspect true bacteremia, source is most likely the necrotic tissue of the L great toe, unlikely to be from a GI source
- TTE without vegetations, may eventually consider empiric treatment for endocarditis vs mikey if eventually stabilizing
- RF pending, UA not consistent with glomerulonephritis
- wound care per podiatry
- continue meropenem
- will require a course of home IV antibiotics , duration pending course
- patient is critically ill on mulitple pressors
Choledocholithiasis s/p ERCP
- meropenem as above
Chief Complaint
-: Other (wet gangrene, mssa bacteremia)
Subjective / Review of Systems
now hypothermic
requiring pressors
had code this AM in the OR; PEA/v fib arrest
now with a right femoral TLC and marla
on cooling protacol
L hand with decerebrate posturing
Vital Signs / Physical Exam
Vital Signs
Vital Signs
Temp Pulse Resp BP Pulse Ox
99.7 F 78 19 104/67 98
06/24/24 07:00 06/24/24 07:00 06/24/24 07:00 06/24/24 07:00 06/24/24 10:27
Physical Exam
Constitutional: Acutely Ill and Chronically Ill
Cardiovascular: Regular Rate and S1/S2; Negative Murmur or Rub
Pulmonary: Clear and Symmetric; Negative Wheezes or Rales
Gastrointestinal: Soft, Non Tender, Non Distended and Normal Bowel Sounds
Skin: Warm and Dry; Negative Rash or Jaundice
Neurological: Other (L hand with decerebrate posturing )
Objective Data
Lab Data
PT 22.3 Sec (11.4-14.6) H 06/24/24 08:45
INR 1.94 06/24/24 08:45
APTT 46.1 Sec (23.4-35.0) H 06/24/24 08:45
APTT Cancelled 06/24/24 08:45
APTT Cancelled 06/24/24 08:45
Estimated Creat Clear 75 ml/min 06/24/24 08:45
Lactic Acid Cancelled 06/24/24 08:45
Total Bilirubin 1.1 mg/dl (0.2-1.3) 06/24/24 08:45
AST 47 U/L (17-59) 06/24/24 08:45
ALT 33 U/L (0-50) 06/24/24 08:45
Alkaline Phosphatase 196 U/L (38-126) H 06/24/24 08:45
Most recent labs reviewed.
Micro Results:
06/21/24 09:33 Blood Culture - Preliminary
Blood/Venous No Growth in 72 hours- Final report to follow
06/22/24 14:36 Wound Culture - Final
Abscess S aureus-Methicillin Sensitive
Gram Stain - Final
06/22/24 13:23 Blood Culture - Preliminary
Blood/Venous No Growth in 24 hours- Final report to follow
06/20/24 00:42 Blood Culture - Final
Blood/Venous S aureus-Methicillin Sensitive
Gram Stain - Final
06/20/24 01:59 Blood Culture - Final
Blood/Venous S aureus-Methicillin Sensitive
Gram Stain - Final
06/18/24 16:51 Urine Culture - Final
Urine NO GROWTH
06/18/24 16:11 Influenza Types A & B (HUBER) - Final
Nasal Swab Negative for Influenza A & B, NAAT
Negative results must be combined with clinical observations
and patient history.
Nucleic Acid Amplification test (NAAT)performed on the
[employer] platform.
[2024-06-24] MEDS: BUSPAR 30 MG TUBE ×2 (11:20→16:11)
[2024-06-24] MEDS: FARXIGA PO (11:21)
[2024-06-24] MEDS: COREG PO (11:21)
[2024-06-24] MEDS: LANTUS SC (11:21)
[2024-06-24] MEDS: NOVOLOG FLEXPEN-LOW RESISTANCE SC ×2 (11:21→12:35)
[2024-06-24] MEDS: ASPIR LOW (ENTERIC COATED) PO (11:21)
[2024-06-24] MEDS: NOVOLOG FLEXPEN SC ×3 (11:21→16:12)
[2024-06-24] MEDS: MAG-TAB SR PO (11:22)
[2024-06-24] MEDS: NEURONTIN PO (11:22)
[2024-06-24] MEDS: LASIX IV (11:22)
[2024-06-24 11:29] LABS: Hematocrit 28.3 % (39.0-52.0); Hemoglobin 9.1 g/dL (13.0-18.0); Mean Corp Hgb Conc. 32.2 g/dL (33.0-37.0); Mean Corpuscular Hgb 28.3 pg (27.0-31.0); Mean Corpuscular Volume 87.9 fL (80.0-94.0); Mean Platelet Volume 10.2 fL (7.4-10.4); Platelet Count 374 10^3/uL (130-400); Red Blood Cell Count 3.22 10^6/uL (4.70-6.10); Red Cell Dist. Width 16.4 % (11.5-14.5); White Blood Cell Count 25.3 10^3/uL (4.8-10.8)
[2024-06-24 11:37] LABS: APTT 31.5 Sec (23.4-35.0); INR 1.64; PT 19.7 Sec (11.4-14.6)
[2024-06-24 11:50] LABS: Triglycerides 113 mg/dl (10-149)
[2024-06-24 11:53] LABS: ALT (SGPT) 42 U/L (0-50); AST (SGOT) 76 U/L (17-59); Albumin 2.3 g/dl (3.5-5.0); Alkaline Phosphatase 251 U/L (38-126); Blood Urea Nitrogen 44 mg/dl (9-20); Calcium 9.3 mg/dl (8.4-10.2); Carbon Dioxide 21 mmol/L (22-30); Chloride 99 mmol/L (98-107); Estimated Creatinine Clearance 75 ml/min; Glucose 268 mg/dl (70-99); Magnesium 2.8 mg/dl (1.6-2.3); Potassium 5.3 mmol/L (3.5-5.1); Sodium 132 mmol/L (135-145); Total Bilirubin 2.1 mg/dl (0.2-1.3); eGFR > 60.00
--- NOTE | 2024-06-24 11:55 | W.PN.UPDATE ---
Update Note
Progress Note Update
5 Slovak left femoral artery sheath removed per my order by RT Cristina Davenport, pressure held for a total of 20 minutes with hemostasis achieved. No evidence of hematoma, all surrounding compartments soft dressing applied. Orders placed for post
sheath removal care.
[2024-06-24 11:56] LABS: NT-proBNP 11200 pg/ml
[2024-06-24 11:59] LABS: Prealbumin (Transthyretin) 6.7 mg/dl (17.6-36.0)
[2024-06-24] MEDS: TYLENOL ORAL SOLUTION 650 MG TUBE ×2 (12:04→17:45)
[2024-06-24 12:24] LABS: Glucose - Point of Care 310 mg/dl (70-99)
[2024-06-24 12:29] LABS: B.E. -1.3 mmol/L; HCO3 22.4 mmol/L (21-28); PCO2 33 mmHg (35-48); PO2 145 mmHg (83-108); pH 7.44 (7.35-7.45)
[2024-06-24] MEDS: DAKIN'S SOLUTION 0.125% 1/4 STRENGTH TOPICAL (12:35)
[2024-06-24 12:42] LABS: Lactic Acid 2.3 mmol/L (0.7-2.0)
--- NOTE | 2024-06-24 13:02 | PTCARENOTE ---
Addendum entered by Sheeba Graf RN 06/24/24 13:40:
train of four 07/12@40
Original Note:
patient received from vascular OR post code 9. paitent unresponsive, gtts epi, levophed and amiodarone infusing per rates documented via right femoral triple lumen. right arterial line in place. left femerol sheath received capped. monitor nsr, ett
to vent, settings adjustment per dishwasher preparer. patient left foot dressing saturated with blood. settled to room, then immediately transported to CT scan. returned to unit without issues. labs sent, ngt placed per orders. fuentes draining clear yellow
urine.train of four completed pre application of the TTM suit. vascular in and removed left arterial sheath. heparin resumed@prior infusion rate post sheath pull. care proved, placed in TTM suit. cooling initiated. dishwasher preparer updated with continued
hyperglycemia and mag level per orders. orders received. family at bedside, updated and support given
[2024-06-24] MEDS: NOVOLIN R INSULIN INFUSION 100 IV (13:03)
[2024-06-24] MEDS: NOVOLIN R 6 UNITS IV (13:10)
[2024-06-24 13:11] LABS: Glucose - Point of Care 301 mg/dl (70-99)
[2024-06-24] MEDS: MERREM IV (13:20)
--- NOTE | 2024-06-24 13:23 | CON.NEURO4 ---
Addendum entered and electronically signed by Gene James MD 06/24/24 15:47:
Studies reviewed.
I have personally examined the patient. I reviewed and agree with the MANAGER [employer]'s Note.
My addenda:
Unresponsive. No acute distress. No tremor.
Pupils minimally responsive to light.
There are spontaneous slower than mild tonic movements of the right foot and more rare movements of the left upper extremity distally greater than proximally and unknown specific and nonfunctional pattern.
Reflexes absent.
Heart: No JVD
IMPRESSIONS/RECOMMENDATIONS:
Abrupt onset of change in mental status following pulselessness during needed procedure
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 Prognosis is favorable and that the patient had good quality CPR. The prognosis is also favorable and that the CT of the head did not demonstrate obvious diffuse anoxic injury. The prognosis is not
favorable and that the patient did not have immediate improvement of return of function
Continue supportive care
Consider repeat EEG evaluation dependent on patient's function and return of same or absence of same
Consider repeated neuroimaging
Will continue to follow patient.
Original Note:
Consultation - Neurology 4
-
CONSULTING PHYSICIAN: Gene James MD
REFERRING PHYSICIAN: Hospitalists/PAMELA Oconnor
DICTATED BY: PAMELA Zepeda
DATE/TIME OF REQUEST: 06/23/24
DATE/TIME OF CONSULTATION:06/24/24
Reason for Consultation: Cardiac Arrest
History of Present Illness:
This is a 63-year-old male with a recent admission at [facility] for LV thrombus and HFrEF (Coumadin) who has presented to the hospital on 06/18/24 with report of an episode of staring, garbled speech, confusion, and balance difficulty
lasting an unclear amount of time. MRI brain on 06/19/25 demonstrated a tiny nonhemorrhagic acute/subacute infarct in the right periventricular white matter/centrum semiovale region. His hospital admission has also included an ERCP on 06/21/24 and
then he went to the OR today (06/24/24) for RLE percutaneous revascularization. Upon anesthesia induction patient PEA/Vfib arrested and underwent ACLS until ROSC was achieved. He is now in the ICU undergoing TTM.
Past Medical History: LV thrombus, CAD, HFrEF, NIDDM, CKD, elevated LFTs, RLE cellulitis, PAD, nonhealing left calf wound, left foot wound
Surgical History: left 1st MTP removal, bilateral arthroscopic knee surgery, renal calculi removal, penile implant, b/l cataract removal, left eye detached retina/lens implant
Family History: Reviewed and noncontributory.
Social History: Dips tobacco. No alcohol or illicit drug use.
Allergies: No known allergies.
Home Medications: See below.
Review of Symptoms:
Per the HPI. I am unable to obtain a complete review of systems�because of patient's inability to provide history.
Physical Exam:
The patient is afebrile, abdomen is nondistended, breathing is unlabored on mechanical ventilation, skin is cool, left foot in DSD with sanguinous drainage.
Neurologic Examination:
The patient is unresponsive. He does not follow any commands. Eyes open and close spontaneously. On cranial nerve assessment, pupils are 3 mm bilateral, round and nonreactive to light and accommodation. Negative Dolls eyes. No apparent facial
asymmetry. DIXON hearing. DIXON tongue and palate. LUE and RLE with spontaneous movement concerning for posturing. To pain, LLE 0/5, RLE flicker withdraws, BUE 0/5. Deep tendon reflexes are absent bilateral upper and lower extremities (DIXON LLE
Achilles). Babinski is postiive on the right, DIXON left due to DSD. DIXON sensation and coordination.
Lab Results: See below.
Neuro Imaging:
1. CT Head 06/24/24: No acute intracranial abnormality. No interval change.
2. EEG 06/19/24: Mildly abnormal EEG for age due to diffuse bihemispheric slowing.
3. MRI brain 06/19/24: Tiny nonhemorrhagic acute/subacute infarct in the right periventricular white matter/centrum semiovale region.
Differentials for the patient's presentation include:
1. Cardiac arrest with achievement of ROSC. CT head imaging 06/24/24 is normal, no overt signs of anoxic brain injury on imaging at this point.
2. Tiny right centrum semiovale ischemic infarct 06/18/24.
3. Recent LV thrombus on warfarin.
Patient has the following risk factors for their symptoms: HFrEF, CAD, LV thrombus
Recommendations:
-If no improvement in mental status in the next couple of days, will need repeat MRI brain and EEG imaging.
-Neurological checks per unit guidelines.
Discussed patient care with: Dr. James, ICU staff
Vital Signs and Labs
-
Vital Signs and Labs:
Vital Signs
Temp Pulse Resp BP Pulse Ox
96.5 F L 56 20 136/77 100
06/24/24 13:30 06/24/24 13:30 06/24/24 13:30 06/24/24 09:45 06/24/24 13:30
PT 19.7 Sec (11.4-14.6) H 06/24/24 11:02
INR 1.64 06/24/24 11:02
APTT 31.5 Sec (23.4-35.0) 06/24/24 11:02
Sodium 132 mmol/L (135-145) L 06/24/24 11:02
Sodium Cancelled 06/24/24 11:02
Potassium 5.3 mmol/L (3.5-5.1) H 06/24/24 11:02
Potassium Cancelled 06/24/24 11:02
BUN 44 mg/dl (9-20) H 06/24/24 11:02
BUN Cancelled 06/24/24 11:02
Glucose 268 mg/dl (70-99) H 06/24/24 11:02
Glucose Cancelled 06/24/24 11:02
Calcium 9.3 mg/dl (8.4-10.2) 06/24/24 11:02
Calcium Cancelled 06/24/24 11:02
Phosphorus 5.0 mg/dl (2.5-4.5) H 06/24/24 08:45
Yop-M-Myflnrsuyfq Pept 50742 pg/ml 06/24/24 11:02
Vitamin B12 884 pg/ml (736-931) 06/18/24 16:12
Medications
-
Active Medications
Generic Name Dose Route Start Last Admin
Trade Name Freq PRN Reason Stop Dose Admin
Acetaminophen 650 mg 06/18/24 22:56 06/23/24 16:07
Acetaminophen 325 Mg Tablet PO 07/16/24 22:55 650 mg
Q4HPRN PRN Administration
mild pain/OROPEZA/temp> 100.4F
Acetaminophen 650 mg 06/24/24 12:00 06/24/24 12:04
Acetaminophen (Oral Solution) 650 Mg/20.3 Ml Cup TUBE 06/28/24 11:59 650 mg
Q6 KARISSA Administration
Acetaminophen 650 mg 06/24/24 09:43
Acetaminophen 650 Mg Rectal Suppository RECTAL 06/28/24 09:42
Q6HPRN PRN
if cannot be given via tube
Aspirin 81 mg 06/19/24 08:00 06/24/24 11:21
Aspirin 81 Mg (Enteric Coated) Tablet PO 07/17/24 07:59 Not Given
DAILY KARISSA
Buspirone HCl 30 mg 06/24/24 16:00
Buspirone 15 Mg Tablet TUBE 07/22/24 15:59
Q8 KARISSA
Carboxymethylcellulose Sodium 1 drops 06/24/24 20:00
Carboxymethylcellulose Ophth Gel (Celluvisc) Droperette OPHTH 07/22/24 19:59
BID KARISSA
Carvedilol 6.25 mg 06/19/24 20:00 06/24/24 11:21
Carvedilol 6.25 Mg Tablet PO 07/17/24 19:59 Not Given
BID KARISSA
Dextrose 12.5 grams 06/24/24 12:39
Dextrose 50% (0.5 Grams/Ml) 50 Ml Syringe IV 07/22/24 12:38
[id number] PRN
Blood Glucose < 70
Furosemide 40 mg 06/19/24 16:00 06/24/24 11:22
Furosemide 40 Mg (10 Mg/Ml) 4 Ml Vial IV 07/17/24 15:59 Not Given
BID AT 0800,1600 KARISSA
Gabapentin 600 mg 06/21/24 20:00 06/24/24 11:22
Gabapentin 300 Mg Capsule PO 07/19/24 19:59 Not Given
BID KARISSA
Heparin Sodium 25,000 units in 250 mls @ 0 mls/hr 06/22/24 09:15 06/24/24 11:06
Heparin 79360 Units/250 Ml IV 250 mls
PER PROTOCOL KARISSA Administration
Protocol
Per Protocol
Vasopressin 20 units in 100 mls @ 0 mls/hr 06/24/24 09:45 06/24/24 10:00
Pitressin IV 100 mls
PER PROTOCOL KARISSA Administration
Protocol
Per Protocol
Norepinephrine Bitartrate 4 mg in 250 mls @ 0 mls/hr 06/24/24 09:45
Levophed IV
PER PROTOCOL KARISSA
Protocol
Per Protocol
Epinephrine HCl 4 mg in 250 mls @ 0 mls/hr 06/24/24 09:45
Adrenalin IV
PER PROTOCOL KARISSA
Protocol
Per Protocol
Fentanyl Citrate 1,000 mcg in 100 mls @ 0 mls/hr 06/24/24 09:45
Sublimaze IV
PER PROTOCOL KARISSA
Protocol
Per Protocol
Propofol 1,000,000 mcg in 100 mls @ 0 mls/hr 06/24/24 09:45
Diprivan IV
PER PROTOCOL KARISSA
Protocol
Per Protocol
Vecuronium [place] 60 mg/ 250 mls @ 0 mls/hr 06/24/24 10:00
Sodium Chloride IV
PER PROTOCOL KARISSA
Protocol
Per Protocol
Insulin Human Regular 100 units in 100 mls @ 0 mls/hr 06/24/24 12:45 06/24/24 13:03
Novolin R Insulin Infusion IV 100 mls
PER PROTOCOL KARISSA Administration
Protocol
Per Protocol
Amiodarone HCl 900 mg/ 518 mls @ 0 mls/hr 06/24/24 13:15
Dextrose/Water IV
PER PROTOCOL KARISSA
Protocol
Per Protocol
Insulin Aspart 0 units 06/24/24 16:30
Insulin Aspart (100 Units/Ml) 3 Ml Flexpen SC 07/22/24 16:29
AC KARISSA
Protocol
Magnesium 84 mg 06/19/24 08:00 06/24/24 11:22
Magnesium Lactate 84 Mg Tablet PO 07/17/24 07:59 Not Given
BID KARISSA
Meropenem 500 mg 06/23/24 14:00 06/24/24 13:20
Meropenem 500 Mg/10 Ml Vial IV Not Given
Q6H KARISSA
Morphine Sulfate 2 mg 06/23/24 16:14 06/24/24 01:38
Morphine 2 Mg/Ml Syringe IV 07/07/24 16:13 2 mg
Q4HPRN PRN Administration
mod-sev pain
Pantoprazole Sodium 40 mg 06/25/24 08:00
Pantoprazole Sodium 40 Mg/10 Ml Vial IV 07/23/24 07:59
DAILY KARISSA
Sodium Chloride 0 flush 06/18/24 23:00 06/22/24 15:38
Sodium Chloride 0.9% (Flush) Syringe IV 07/16/24 22:59 1 flush
PER PROTOCOL KARISSA Administration
Sodium Chloride 10 ml 06/25/24 08:00
Sodium Chloride 0.9% (Preservative Free) 10 Ml Vial IV 07/23/24 07:59
DAILY KARISSA
Sodium Hypochlorite 0 ml 06/22/24 16:00 06/24/24 12:35
Dakin's Solution 0.125% (1/4 Strength) 473 Ml Bottle TOPICAL 07/20/24 15:59 Not Given
DAILY KARISSA
Sterile Water 10 ml 06/23/24 14:00 06/24/24 12:03
Sterile Water For Injection 10 Ml Vial IV 07/21/24 13:59 10 ml
Q6H KARISSA Administration
Vecuronium [place] 10 mg 06/24/24 09:50
Vecuronium [place] (1 Mg/Ml) 10 Mg/10 Ml 0.1 mg/kg (10 mg) 06/27/24 09:50
IV
Q1HPRN PRN
BSAS >/= 1
Protocol
Home Medications
�Medication �Instructions �Recorded
aspirin 81 mg tablet,delayed 81 mg PO DAILY Heart disease 07/06/09
release
zolpidem 10 mg tablet 10 mg PO HS Sleep 04/22/19
furosemide 40 mg tablet 40 mg PO BID Fluid 05/19/19
retention/Swelling
gabapentin 600 mg tablet 600 mg PO HS Neurological Condition 07/09/20
(Neurontin)
carvedilol 12.5 mg tablet 12.5 mg PO BID Heart Failure ##30 07/14/20
albuterol sulfate 90 mcg/actuation 2 puff inhalation R Q6HPRN PRN sob 06/18/24
aerosol inhaler
atorvastatin 80 mg tablet 80 mg PO DAILY 06/18/24
dapagliflozin propanediol 10 mg 10 mg PO DAILY 06/18/24
tablet (Farxiga)
hydralazine 25 mg tablet 25 mg PO TID 06/18/24
insulin detemir U-100 100 unit/mL 20 unit SC BID@0800,1700 Diabetes 06/18/24
(3 mL) subcutaneous pen (Levemir
FlexTouch U-100 Insulin)
insulin lispro 100 unit/mL 5 unit SC AC 06/18/24
subcutaneous pen (Humalog KwikPen
(U-100) Insulin)
magnesium oxide 400 mg PO BID 06/18/24
sacubitril 97 mg-valsartan 103 mg 1 tab PO BID 06/18/24
tablet (Entresto)
spironolactone 25 mg tablet 25 mg PO QPM 06/18/24
warfarin 7.5 mg tablet 5 mg PO QPM 06/18/24
--- NOTE | 2024-06-24 13:45 | PTCARENOTE ---
die technician at bedside. pupils nonreactive, +_corneal, +gag. slight tqitching movement noted right foot and left hand. arms and legs rigid. no signs shivering. met goal temp. glycemic initiated per orders
[2024-06-24 14:11] LABS: Glucose - Point of Care 286 mg/dl (70-99)
[2024-06-24] MEDS: STERILE WATER FOR INJECTION IV (14:11)
[2024-06-24 14:30] LABS: Creatine Phosphokinase 198 U/L (55-170)
[2024-06-24 14:41] LABS: Rheumatoid Agglutinin Positive (<10 IU)
[2024-06-24 14:42] LABS: CKMB 0.9 ng/ml (0.0-3.4)
[2024-06-24 14:42] LABS: Rheumatoid Agg. Semi-quant 512 IU
[2024-06-24 14:50] VITALS: BMI 28.6
[2024-06-24 14:51] VITALS: BP 129/104
--- NOTE | 2024-06-24 14:54 | CON.INTV ---
Consultation
Consultation Request
Date/Time Consultation Requested: 06/24/2024
Date/Time Consultation Performed: -
Requesting Provider: Laila Kruger
Performing Provider: Claire Wharton
Reason for Consultation: Cardiac arrest
Medical History
-
Chief Complaint: Cardiac arrest
History of Present Illness:
Patient is a 63-year-old gentleman with known history of nonischemic cardiomyopathy, ejection fraction 10 to 15% with LV thrombus diagnosed after recent admission at [facility], who presented to the hospital about a week ago because of episode of
garbled speech, confusion concerning for TIA. Further workup included an MRI of the brain which showed a tiny nonhemorrhagic infarct in the right periventricular white matter. During hospital stay patient was noted to have multiple CBD stones and
subsequently had ERCP along with extraction. Patient was also noted to have MSSA bacteremia as well as a gangrenous foot ulcer for which he had a ray amputation. He was subsequently evaluated by vascular surgery service and was supposed to get
arteriogram in the OR today. Unfortunately soon after anesthesia induction patient developed cardiac arrest. Patient reportedly got hypotensive and then developed PEA arrest requiring CPR as well as epinephrine pushes. Subsequently he developed
episode of hypertension with ventricular tachycardia followed by polymorphic ventricular tachycardia as well as V-fib. Patient received multiple rounds of CPR as well as cardioversion, was intubated and was brought to the ICU.
Toxics Program Officer consult was requested for further management.
Patient unable to provide any history due to being intubated and mechanically ventilated. Information was mostly gathered from patient chart, discussion with other consultants as well as patient's family at bedside.
PAST MEDICAL HISTORY:
1. Left ventricular thrombus 06/06/2024 through 06/12/2024 at
[facility], worsening cardiomyopathy, 15-20 percent
ejection fraction.
2. Renal insufficiency.
3. Diabetes type 2.
4. Hyperlipidemia.
5. Chronic systolic congestive heart failure.
6. Right lower extremity cellulitis.
7. Nicotine dips.
ADDITIONAL SURGICAL HISTORY:
1. Arthroscopic knee surgery, right 3 times, left 2 times.
2. Renal calculi removal.
3. Penile implant.
4. Back surgery.
5. Cataract extraction.
6. Detached retina.
7. Lens implant, left eye.
ALLERGIES: No known drug allergies.
SOCIAL HISTORY: Per record, The patient uses chewing tobacco. Denies alcohol
use. Denies illicit drug use.
Allergies / Home Medications
Allergies
Allergy/AdvReac Type Severity Reaction Status Date / Time
No Known Allergies Allergy Verified 06/18/24 16:01
Home Medications
�Medication �Instructions �Recorded �Confirmed �Last Taken �Type
aspirin 81 mg tablet,delayed 81 mg PO DAILY Heart disease 07/06/09 06/18/24 07/09/20 History
release
zolpidem 10 mg tablet 10 mg PO HS Sleep 04/22/19 06/18/24 06/10/19 22:00 History
furosemide 40 mg tablet 40 mg PO BID Fluid 05/19/19 06/18/24 07/09/20 History
retention/Swelling
gabapentin 600 mg tablet 600 mg PO HS Neurological Condition 07/09/20 06/18/24 07/09/20 10:00 History
(Neurontin)
carvedilol 12.5 mg tablet 12.5 mg PO BID Heart Failure ##30 07/14/20 06/18/24 07/09/20 10:00 Rx
albuterol sulfate 90 mcg/actuation 2 puff inhalation R Q6HPRN PRN sob 06/18/24 06/18/24 Unknown History
aerosol inhaler
atorvastatin 80 mg tablet 80 mg PO DAILY 06/18/24 06/18/24 Unknown History
dapagliflozin propanediol 10 mg 10 mg PO DAILY 06/18/24 06/18/24 Unknown History
tablet (Farxiga)
hydralazine 25 mg tablet 25 mg PO TID 06/18/24 06/18/24 Unknown History
insulin detemir U-100 100 unit/mL 20 unit SC BID@0800,1700 Diabetes 06/18/24 06/18/24 Unknown History
(3 mL) subcutaneous pen (Levemir
FlexTouch U-100 Insulin)
insulin lispro 100 unit/mL 5 unit SC AC 06/18/24 06/18/24 Unknown History
subcutaneous pen (Humalog KwikPen
(U-100) Insulin)
magnesium oxide 400 mg PO BID 06/18/24 06/18/24 Unknown History
sacubitril 97 mg-valsartan 103 mg 1 tab PO BID 06/18/24 06/18/24 Unknown History
tablet (Entresto)
spironolactone 25 mg tablet 25 mg PO QPM 06/18/24 06/18/24 Unknown History
warfarin 7.5 mg tablet 5 mg PO QPM 06/18/24 06/18/24 Unknown History
Review of Systems
-
Unable to Obtain full review of systems at this time due to: Patient Intubation
Hematologic/Lymphatic: Other (Unable to obtain )
Vitals / Labs / Diagnostic Testing
Vital Signs
Temp Pulse Resp BP Pulse Ox
95.5 F L 55 20 129/104 100
06/24/24 14:00 06/24/24 14:51 06/24/24 14:51 06/24/24 14:51 06/24/24 14:51
Laboratory Results
06/24/24 06/24/24 06/24/24
01:56 08:41 08:45
PT 22.3 H
INR 1.94
APTT 72.7 H Cancelled
pH 7.44
pCO2 32 L
pO2 345 H
HCO3 21.7
O2 Delivery Level
06/24/24 06/24/24 06/24/24
08:45 08:45 09:00
PT
INR
APTT 46.1 H Cancelled
pH 7.26 L
pCO2 43
pO2 271 H
HCO3 19.3 L
O2 Delivery Level
06/24/24 06/24/24
11:02 12:12
PT 19.7 H
INR 1.64
APTT 31.5
pH 7.44
pCO2 33 L
pO2 145 H
HCO3 22.4
O2 Delivery Level
Microbiology
06/22/24 13:23 Blood/Venous Blood Culture - Preliminary
No Growth in 48 hours- Final report to follow
06/21/24 09:33 Blood/Venous Blood Culture - Preliminary
No Growth in 72 hours- Final report to follow
06/22/24 14:36 Abscess Wound Culture - Final
S aureus-Methicillin Sensitive
06/22/24 14:36 Abscess Gram Stain - Final
06/20/24 00:42 Blood/Venous Blood Culture - Final
S aureus-Methicillin Sensitive
06/20/24 00:42 Blood/Venous Gram Stain - Final
06/20/24 01:59 Blood/Venous Blood Culture - Final
S aureus-Methicillin Sensitive
06/20/24 01:59 Blood/Venous Gram Stain - Final
Diagnostic Testing:
Physical Exam
-
HEENT: Normocephalic
Cardiovascular: S1/S2 and Regular Rhythm
Respiratory: Clear and Non-Labored Respirations
GI: Soft and Non Distended
Neurology: Other (has gag reflex, and corneal reflex. off sedation, continues to be encephalopathic)
Skin: Warm
General: Comfortable
Assessment
-
#1. Cardiac arrest with Ventricular Tachycardia followed by Polymorphic VT/V Fib
-S/p 3 rounds of ACLS and 4 defibrillations followed by ROSC
-Continue Amiodarone infusion
-Target K >4 and Mg >2
-Telemetry
-ECHO. serial troponin, stat EKG
-Stat CT head
-Targeted temperature management with goal to keep normothermia and avoid fever
-Serial exam
-Monitor electrolytes closely, q6 for next 24 hrs
-Target MAP 80 for next 24 hrs due to disturbed cerebral autoregulation
#2. Shock, cardiogenic and also vasoplegia post cardiac arrest
-Known h/o LV failure and Severe Pulmonary HTN
-Vasopressin and Levophed as needed
-Continue Meropenem
#3. Severe non-ischemic cardiomyopathy with EF 10-15% with Pulmonary HTN (62mm) with LV Thrombus
-Cardiology service on case
-Vasopressors as needed
-Monitor I/O closely
-Continue Heparin
#4. RLL Aspiration pneumonia vs Pneumonitis
-Continue Meropenem
#5. 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
-ID service on case. Bacteremia has since resolved
-Podiatry service and Vascular service on case
-Ongoing oozing noted
-Serial H/H, transfuse to keep Hb above 8
#6. Concern for ischemic/Anoxic encephalopathy
-Patient has intact Gag reflex, corneal reflex. Pupil small with minimal response to light but otherwise unresponsive
-Stay off sedation'
-EEG, neurology consult
GI Prophylaxis: IV PPI
Critical Care time 65 mins -- The patient is admitted for acute critical illness for the treatment of vital organ failure and/or prevention of further life-threatening conditions. Total care includes time spent in review of history, physical exam,
medications, hemodynamic/ventilator parameters, laboratory data, imaging and discussion with house staff, pharmacy, respiratory therapy, acid cutter, and nursing.
Data:
ECHO 06/2024: Normal left ventricular chamber size. Severely reduced left ventricular
systolic function. Mild concentric left ventricular hypertrophy. Severe global
hypokinesis with possible inferior and apical akinesis. Left ventricular
ejection fraction is 10-15 % by visual estimate.
Mitral valve opens normally. Thickened mitral valve leaflets. Mitral annular
calcification. Mild mitral regurgitation.
Moderately dilated left atrium.
Tricuspid valve opens normally. Moderate tricuspid regurgitation. Estimated
pulmonary artery pressure of 62 mmHg assuming a right atrial pressure of 3
mmHg.
Moderately dilated right atrium.
Right ventricle appears mildly dilated and hypokinetic.
Small pericardial effusion without evidence of hemodynamic compromise.
Since echocardiogram 06/20/2024, there is no significant change.
CXR 06/24/2024
Endotracheal tube with tip in trachea above the salazar. No pneumothorax.
Patchy right lung opacity which could represent pneumonia/pneumonitis.
Nasogastric tube with tip in proximal stomach.
[2024-06-24 14:56] VITALS: BP 119/88
[2024-06-24 15:10] VITALS: BMI 28.6
[2024-06-24 15:12] LABS: Glucose - Point of Care 229 mg/dl (70-99)
--- NOTE | 2024-06-24 15:33 | EEG.RPT ---
Electroencephalogram Report
Recording
Date of EE06/24/24
Type of EEG: Routine
Length of EEG recordin minutes
Done with Video Recording: Yes
Patient Status: Inpatient
Recording Conditions: Other (Unresponsive)
Hyperventilation Performed: No
Photic Stimulation Performed: Yes
Report
LESS THAN 1 HOUR ELECTROENCEPHALOGRAM (EEG) REPORT
EEG INTERPRETATION:
Severely abnormal EEG for age due to absence of a well defined cortical rhythm and minimal reactivity.
CLINICAL CORRELATION:
This study was consistent with minimal electrographic demonstration of cortical activity. No epileptiform features are defined.
Clinical correlation is advised.
METHODS:
A 21 channel digitized electroencephalogram (EEG) was performed at the bedside in the ICU. The 10/20 international system of electrode placement was used with ECG and lateral/vertical eye movements recorded. Video was recorded.
ELECTROENCEPHALOGRAPHER IMPRESSION(S):
Quality of study
Good
Background
There was no clear anterior-posterior voltage gradient.
The background activity was a very low amplitude beta.
There was no significant reactivity of the record with the exception of minimal muscle artifact noted.
Sleep
Not discernable
Hyperventilation
Not performed
Photic Stimulation
Failed to activate the record
ECG
Normal sinus rhythm
--- NOTE | 2024-06-24 16:01 | PN.DE.MGMTRT ---
Insulin Management
- -
06/24/2024: Diabetes Management Consult
63 year old male who presented to ER on 06/18/24 with report of AMS changes, of staring, garbled speech, confusion, and balance difficulty lasting an unclear amount of time. Of note, pt was recently admitted at [facility] for LV thrombus
and HFrEF (on Coumadin).
PMH: NICM, mild MR, HTN, Hypercholesterolemia Renal insufficiency, RLE Cellulitis, nicotine use and IDDM.
MRI brain on 06/19/25 demonstrated a tiny nonhemorrhagic acute/subacute infarct in the right periventricular white matter/centrum semiovale region.
His hospital admission has also included an ERCP on 06/21/24. Pt was also noted for a chronic nonhealing left foot wound as well as a more acute gangrenous left hallux and associated foot infection. He underwent a partial first ray resection on 06/23
and went back to the OR today (06/24/24) for RLE percutaneous revascularization. Upon anesthesia induction patient PEA/Vfib arrested and underwent ACLS until ROSC was achieved and procedure was aborted.
He is now in the ICU undergoing TTM, intubated and sedated, unable able to interview, no family at bedside. Information obtained from chart review
Of noted he was taking Levemir 20 units BID, Humalog 5 units AC and Farxiga 10mg daily prior to admission. A1C 10.8%, Cr 1.6-->1.2, eGFR >60 today.
Glucose trended up to >300 postoperatively and he was initiated on the glycemic protocol. Remains NPO
Current glucose range 229 to 310, requiring 3-8 units of insulin/hr
Will cont current management plan and reassess in AM for readiness to transition off the drip if medially stable.
Diabetes History
- -
Type of Diabetes: 2 requiring insulin
Pre-Admission Diabetes Regimen
06/24/24 06/24/24 06/24/24
08:45 11:02 11:02
Creatinine 1.2 1.2 Cancelled
Lab Results
Hemoglobin A1c 10.8 % (4.0-5.6) H 06/19/24 05:43
Insulin Pump Settings
IP Diabetes Regimen
06/23/24 06/23/24 06/24/24
16:00 21:02 06:59
Glucose
POC Glucose 233 H 183 H 179 H
06/24/24 06/24/24 06/24/24
08:45 10:45 11:02
Glucose 280 H 268 H
POC Glucose 302 H
06/24/24 06/24/24 06/24/24
11:02 12:13 13:00
Glucose Cancelled
POC Glucose 310 H 301 H
06/24/24 06/24/24
13:59 15:01
Glucose
POC Glucose 286 H 229 H
Patient Education
--- NOTE | 2024-06-24 16:12 | W.PN.UPDATE ---
Update Note
Progress Note Update
I was called to the vascular OR for ventricular tachycardia seen on cafeteria monitor. When I arrived, the patient had undergone vascular access but no other instrumentation. He had been induced with propofol and fentanyl by report. The monitor
showed stable ventricular tachycardia with extreme hypertension of 240/120. Anesthesia reported giving at least 1 dose of IV epinephrine. Given the stability of the patient's blood pressure, amiodarone 300 mg was administered in addition to
previously given calcium and sodium bicarbonate. Over the course of the next 5 to 10 minutes, the patient appeared to transiently break from their ventricular tachycardia into a sinus rhythm, but would routinely reenter ventricular tachycardia.
Blood pressure began to drift slowly downward, but still maintained a perfusing pressure.
After approximately 10 minutes of stable ventricular tachycardia, the patient lapsed into polymorphic VT/ventricular fibrillation. CPR was initiated and the patient was defibrillated at 200 J. An additional epinephrine was given IV. Blood draws
were taken. A third gram of calcium was administered and we called for 2 g of IV magnesium. Unfortunately, magnesium was not readily available and had to be called from pharmacy. The patient underwent 3 rounds of ACLS with a total of 4
defibrillations. After the fourth defibrillation, administration of IV magnesium and a second bolus of amiodarone 150 mg, an organized rhythm was reestablished. Pulse check showed palpable pulses, confirmed on invasive monitor.
At this time, the primary service had arrived in the OR and assumed care of the patient. The patient was transferred to the ICU in critical condition. It is notable that the patient had blood visible in their endotracheal tube during CPR.
Critical Care Time = 34 minutes.
--- NOTE | 2024-06-24 16:16 | W.PN.SURGUPD ---
Surgical Update
Surgical Update
s/p left partial first ray amputation 06/23. Patient unfortunately suffered PEA arrest today in OR with vascular surgery
-Dressing changed at bedside. No active purulence or other signs of acute infection
-WBC uptrending to 25. To consider LLE CT if WBC continues to uptrend
-Continue abx per ID recs
-Strict NWB LLE
-Strict elevation to LLE
-Will defer further lower extremity surgery pending medical stability
-Can reinforce dressings as needed
[2024-06-24 16:17] LABS: Glucose - Point of Care 258 mg/dl (70-99)
--- NOTE | 2024-06-24 16:55 | PTCARENOTE ---
Addendum entered by Sheeba Graf RN 06/24/24 17:13:
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 he spoke with family. patient is a full code for now, they state per MD they believe patient has a living will and they are going to locate this paperwork. GOL called and notified of patient code, status
and TTM
Original Note:
patient reassessed, +gag and cough. pupils nonreactive. slight movement arms with suctioning. suctions for moderate amount bloody sputum. podiatry MD in, left foot amputation redressed by MD. wound open, packing changed by MD. DTI wound noted, on
left fifth toe metatarsal:foam applied. large amount bloody drainage. wrapped with anastacia and elevated on 4 pillows per MD. transfer to sport bed per orders. labs sent. gtts per work list. family in and out. 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
[2024-06-24 17:13] LABS: Glucose - Point of Care 242 mg/dl (70-99)
[2024-06-24 17:23] LABS: Hematocrit 24.8 % (39.0-52.0); Hemoglobin 8.3 g/dL (13.0-18.0); Mean Corp Hgb Conc. 33.5 g/dL (33.0-37.0); Mean Corpuscular Hgb 28.2 pg (27.0-31.0); Mean Corpuscular Volume 84.4 fL (80.0-94.0); Mean Platelet Volume 9.9 fL (7.4-10.4); Platelet Count 324 10^3/uL (130-400); Red Blood Cell Count 2.94 10^6/uL (4.70-6.10); Red Cell Dist. Width 16.1 % (11.5-14.5); White Blood Cell Count 25.9 10^3/uL (4.8-10.8)
[2024-06-24 17:24] LABS: Lactic Acid 1.9 mmol/L (0.7-2.0)
[2024-06-24 17:25] LABS: ALT (SGPT) 48 U/L (0-50); AST (SGOT) 76 U/L (17-59); Albumin 2.3 g/dl (3.5-5.0); Alkaline Phosphatase 210 U/L (38-126); Blood Urea Nitrogen 49 mg/dl (9-20); Calcium 8.9 mg/dl (8.4-10.2); Carbon Dioxide 25 mmol/L (22-30); Chloride 101 mmol/L (98-107); Creatine Phosphokinase 204 U/L (55-170); Estimated Creatinine Clearance 70 ml/min; Glucose 234 mg/dl (70-99); Magnesium 2.8 mg/dl (1.6-2.3); Phosphorus 3.6 mg/dl (2.5-4.5); Potassium 3.8 mmol/L (3.5-5.1); Sodium 131 mmol/L (135-145); Total Bilirubin 1.7 mg/dl (0.2-1.3); Total CK 204 U/L (55-170); Total Protein 5.2 g/dl (6.3-8.2); eGFR > 60.00
[2024-06-24 17:40] LABS: APTT > 200 Sec (23.4-35.0)
[2024-06-24 17:55] LABS: CKMB 2.6 ng/ml (0.0-3.4)
[2024-06-24] MEDS: KCL 160 MEQ IV (17:57)
--- NOTE | 2024-06-24 18:06 | PTCARENOTE ---
case coordinator updated with resulted labs. orders received. jordan aguiar initiated
[2024-06-24 18:10] LABS: Glucose - Point of Care 117 mg/dl (70-99)
[2024-06-24 18:13] LABS: % Basophils 0.2 % (0-2); % Immature Granulocytes 1.1 % (0-0.5); % Lymphocytes 2.1 % (20.5-51.1); % Monocytes 2.8 % (1.7-9.3); % Neutrophils 93.8 % (42.2-75.2); Absolute Basophils 0.1 10^3/uL (0-0.2); Absolute Immature Granulocytes 0.3 10^3/uL (0-0.05); Absolute Lymphocytes 0.6 10^3/uL (1.2-3.4); Absolute Monocytes 0.7 10^3/uL (0.1-0.6); Absolute Neutrophils 24.3 10^3/uL (1.4-6.5); Nucleated Red Blood Cells % 0 % (-)
[2024-06-24 19:02] LABS: Glucose - Point of Care 187 mg/dl (70-99)
[2024-06-24] MEDS: REFRESH CELLUVISC GEL 1 DROPS OPHTH (19:59)
[2024-06-24 20:19] LABS: Glucose - Point of Care 159 mg/dl (70-99)
--- NOTE | 2024-06-24 21:15 | PTCARENOTE ---
Assumed care of pt at 1900. Received pt intubated, #8 ETT 25cm at lip, AC 20/500/30/5. Undergoing TTM, goal temp 96.8 which pt reached at approx 1300. Received pt on heparin, insulin (cc glycemic protocol), Levophed, vasopressin, and amiodarone
infusions. See med titration flowsheets for details on med doses/rates. Pt opens eyes spontaneously and blinks, +corneals, pupils reactive b/l, + cough but no gag at this time. Pt not withdrawing to painful stimuli but does grimace when suctioned
via ETT. SB 50s on monitor with PVCs, occasionally will go into bigeminy but then breaks back into SB or SR with rate in mid 50s-low 60s. SpO2 100% on current vent settings. BPs obtained via right radial arterial line, goal MAP > 80. See nursing
shift assessment flowsheet for full physical assessment details. GOL rep on unit, questions answered. Family currently in waiting area and have been filtering in and out of the room to visit with patient.
[2024-06-24 21:21] LABS: Glucose - Point of Care 154 mg/dl (70-99)
--- NOTE | 2024-06-24 22:15 | PTCARENOTE ---
Pt's HR dropping into the 40s, as low as 47. B. Samantha SANTIAGO notified, Amiodarone infusion held at this time per order.
[2024-06-24 22:16] LABS: Glucose - Point of Care 147 mg/dl (70-99)
[2024-06-24 22:39] LABS: Troponin I 0.141 ng/ml
[2024-06-25] MEDS: BUSPAR 30 MG TUBE ×4 (00:07→23:02)
[2024-06-25] MEDS: TYLENOL ORAL SOLUTION 650 MG TUBE ×5 (00:07→23:01)
[2024-06-25 00:23] LABS: B.E. 1.2 mmol/L; HCO3 24.2 mmol/L (21-28); O2 Saturation % 99.9 % (94-98); PCO2 31 mmHg (35-48); PO2 159 mmHg (83-108)
[2024-06-25 00:33] LABS: Glucose - Point of Care 104 mg/dl (70-99)
[2024-06-25 00:38] LABS: O2 Therapy 100%
[2024-06-25 00:44] LABS: Lactic Acid 1.5 mmol/L (0.7-2.0)
[2024-06-25 00:47] LABS: Hematocrit 24.1 % (39.0-52.0); Hemoglobin 8.3 g/dL (13.0-18.0); Mean Corp Hgb Conc. 34.4 g/dL (33.0-37.0); Mean Corpuscular Hgb 28.3 pg (27.0-31.0); Mean Corpuscular Volume 82.3 fL (80.0-94.0); Mean Platelet Volume 10.3 fL (7.4-10.4); Platelet Count 366 10^3/uL (130-400); Red Blood Cell Count 2.93 10^6/uL (4.70-6.10); Red Cell Dist. Width 16.1 % (11.5-14.5); White Blood Cell Count 23.9 10^3/uL (4.8-10.8)
[2024-06-25 01:07] LABS: ALT (SGPT) 48 U/L (0-50); AST (SGOT) 72 U/L (17-59); Albumin 2.2 g/dl (3.5-5.0); Alkaline Phosphatase 198 U/L (38-126); Blood Urea Nitrogen 53 mg/dl (9-20); Calcium 8.7 mg/dl (8.4-10.2); Carbon Dioxide 24 mmol/L (22-30); Chloride 103 mmol/L (98-107); Estimated Creatinine Clearance 70 ml/min; Glucose 99 mg/dl (70-99); Magnesium 2.7 mg/dl (1.6-2.3); Phosphorus 3.5 mg/dl (2.5-4.5); Potassium 4.2 mmol/L (3.5-5.1); Sodium 132 mmol/L (135-145); Total Bilirubin 1.6 mg/dl (0.2-1.3); Total Protein 4.9 g/dl (6.3-8.2); eGFR > 60.00
[2024-06-25 01:20] LABS: % Basophils 0.2 % (0-2); % Immature Granulocytes 2.3 % (0-0.5); % Lymphocytes 4.6 % (20.5-51.1); % Monocytes 5.2 % (1.7-9.3); % Neutrophils 87.7 % (42.2-75.2); Absolute Immature Granulocytes 0.5 10^3/uL (0-0.05); Absolute Lymphocytes 1.1 10^3/uL (1.2-3.4); Absolute Monocytes 1.2 10^3/uL (0.1-0.6); Anisocytosis 1+; Normal RBC Morphology No; Nucleated Red Blood Cells % 0 % (-)
--- NOTE | 2024-06-25 01:21 | PTCARENOTE ---
Midnight assessment mostly unchanged. Pt still opens eyes spontaneously and with tactile stimulation, blinks, + corneals, pupils reactive. Pt has will cough with suction and then continue to cough afterwards in the absence of being suctioned. Pt
started alarming high peak pressure on the vent, noted to be biting the ETT, bite block placed. Pt has otherwise not had any purposeful movement, has not moved extremities, has not tracked or followed commands. Continues to be SB with PVCs on
monitor, still occasionally going into bigeminy. Remains off Amiodarone drip. Still on Levophed, Vasopressin, Insulin, and Heparin drips.
[2024-06-25 01:28] LABS: Glucose - Point of Care 105 mg/dl (70-99)
[2024-06-25 01:29] LABS: Hypersegmented Neutrophil 1+; Rouleaux Occasional; Target Cells 1+; Tear Drop Red Blood Cells Occasional; Vacuolated Segs 1+
--- NOTE | 2024-06-25 01:30 | PTCARENOTE ---
Midnight assessment mostly unchanged. Pt still opens eyes spontaneously and with tactile stimulation, blinks, + corneals, pupils reactive. Pt will cough with in-line suction and then continue to cough afterwards in the absence of being suctioned. Pt
started alarming high peak pressure on the vent, noted to be biting the ETT, bite block placed. Pt has otherwise not had any purposeful movement, has not moved extremities, has not tracked or followed commands. Continues to be SB with PVCs on
monitor, still occasionally going into bigeminy. Remains off Amiodarone drip. Still on Levophed, Vasopressin, Insulin, and Heparin drips.
[2024-06-25 01:31] LABS: Ovalocytes 1+; Schistocytes Occasional
[2024-06-25 01:33] LABS: Hypochromasia 1+; Toxic Granulation 1+
[2024-06-25 01:34] LABS: Polychromasia Occasional
[2024-06-25] MEDS: MERREM 500 MG IV ×4 (02:17→21:35)
[2024-06-25] MEDS: LEVOPHED 250 IV (02:17)
[2024-06-25] MEDS: STERILE WATER FOR INJECTION 10 ML IV ×4 (02:17→21:36)
[2024-06-25] MEDS: NOVOLIN R INSULIN INFUSION 100 IV (02:17)
[2024-06-25] MEDS: HEPARIN 25000 UNITS/250 ML IV ×2 (02:19→23:41)
[2024-06-25 02:27] LABS: Glucose - Point of Care 111 mg/dl (70-99)
[2024-06-25 03:26] LABS: Glucose - Point of Care 113 mg/dl (70-99)
[2024-06-25 04:29] LABS: Total CK 139 U/L (55-170)
[2024-06-25 04:48] LABS: APTT > 200 Sec (23.4-35.0)
[2024-06-25 05:08] LABS: Glucose - Point of Care 120 mg/dl (70-99)
[2024-06-25 05:13] LABS: CKMB 2.1 ng/ml (0.0-3.4)
[2024-06-25 05:21] VITALS: BMI 28.2
--- NOTE | 2024-06-25 05:25 | PTCARENOTE ---
0400 assessment unchanged from previous assessments. Amiodarone remains off, Vasopressin weaned off around 0315. Continues with Levophed, Insulin, and Heparin drips. Levophed weaned from 7mcg/min down to 3mcg/min throughout the shift. SB 50s on
monitor. SpO2 100% on same vent settings. CHG cloth bath done and linens changed.
[2024-06-25 06:19] LABS: Hematocrit 23.1 % (39.0-52.0); Hemoglobin 8.1 g/dL (13.0-18.0); Mean Corp Hgb Conc. 35.1 g/dL (33.0-37.0); Mean Corpuscular Hgb 28.5 pg (27.0-31.0); Mean Corpuscular Volume 81.3 fL (80.0-94.0); Platelet Count 330 10^3/uL (130-400); Red Blood Cell Count 2.84 10^6/uL (4.70-6.10); Red Cell Dist. Width 15.9 % (11.5-14.5); White Blood Cell Count 23.7 10^3/uL (4.8-10.8)
[2024-06-25 06:27] LABS: Lactic Acid 1.2 mmol/L (0.7-2.0)
[2024-06-25 06:32] LABS: ALT (SGPT) 47 U/L (0-50); AST (SGOT) 64 U/L (17-59); Albumin 2.1 g/dl (3.5-5.0); Alkaline Phosphatase 194 U/L (38-126); Blood Urea Nitrogen 55 mg/dl (9-20); Calcium 8.6 mg/dl (8.4-10.2); Carbon Dioxide 25 mmol/L (22-30); Chloride 103 mmol/L (98-107); Estimated Creatinine Clearance 65 ml/min; Glucose 112 mg/dl (70-99); Magnesium 2.6 mg/dl (1.6-2.3); Phosphorus 3.7 mg/dl (2.5-4.5); Potassium 4.3 mmol/L (3.5-5.1); Sodium 134 mmol/L (135-145); Total Bilirubin 1.7 mg/dl (0.2-1.3); Total CK 129 U/L (55-170); Total Protein 4.8 g/dl (6.3-8.2); eGFR 55.78
[2024-06-25 06:40] LABS: Troponin I 0.101 ng/ml
[2024-06-25 06:53] LABS: CKMB 1.9 ng/ml (0.0-3.4)
[2024-06-25 07:12] LABS: % Basophils 0.1 % (0-2); % Immature Granulocytes 1.2 % (0-0.5); % Lymphocytes 5.2 % (20.5-51.1); % Monocytes 4.6 % (1.7-9.3); % Neutrophils 88.9 % (42.2-75.2); Absolute Immature Granulocytes 0.3 10^3/uL (0-0.05); Absolute Lymphocytes 1.2 10^3/uL (1.2-3.4); Absolute Monocytes 1.1 10^3/uL (0.1-0.6); Absolute Neutrophils 21.1 10^3/uL (1.4-6.5); Nucleated Red Blood Cells % 0 % (-)
[2024-06-25 07:23] LABS: Glucose - Point of Care 130 mg/dl (70-99)
--- NOTE | 2024-06-25 07:29 | W.PN.HOSP.TC ---
Today's Communication/Plan
-
pressor support, TTM, Vent mgmt as per ICU
cont abx as per ID
hep gtt
amiodarone gtt
Glycemic control
Assessment / Plan
Assessment / Plan
Physical Exam
GEN: no acute distress
HEENT: EOMI, MMM
LUNGS: Intubated. CTA B/L without wheeze or rales
CV: Normal sinus rhythm no murmurs gallops
ABD: soft, BS+, NT, ND
EXT: +3 hard pitting B/L LE edema. B/L calf wounds and left foot wound dressing clean dry intact
NEURO: spontaneous eye movements. not following commands
63M HFrEF CKD3 DM neuropathy HLD Nicotine dependence complicated hospital course with MSSA bacteremia, Left hallux gangrene, CVA suspect 2/2 cardiac emboli LV thrombus. Had partial amputation Lt Hallux Gangrene OR Podiatry 06/23. Patient was
planned for revascularization LLE 06/24 however developed PEA/Vfib arrest after anesthesia induction requiring ACLS. ROSC eventually achieved, patient was subsequently transferred to ICU intubated and requiring pressor support.
06/24/24 PEA/Vfib arrest following Anesthesia Induction
Acute Anoxic Encephalopathy
Underwent 3 rounds of ACLS and 4 defibrillations as per Cardio before ROSC was achieved
transferred to ICU intubated and on pressor support, poor neurologic recovery noted then, unresponsive off sedation
amiodarone gtt transitioned to PO via ngt
Cardio eval appreciated
Qa Tech Eval appreciated
Neuro Eval appreciated
cont pressor support Vent mgmt TTM as per ICU
ECHO post-code appreciated EF 10-15% no significant change from prior ECHO 06/20/24
CT head appreciated no acute abn's
Mental status improving on TTM, awake with spontaneous eye movements, not following commands however.
# MSSA bacteremia
-Blood cultures from 06/20 positive for MRSA
-Suspect secondary to left hallux wet gangrene, which itself is suspected due to embolic effect
-Antibiotics switched to meropenem, cont as per ID
-Repeat blood cultures from 06/21 and 06/22 with no growth to date
-Treatment of underlying wet gangrene, appreciate guidance from ID and podiatry
-strict NWB and elevation LLE as per Podiatry
#Left hallux gangrene:
-Suspect secondary to embolism as also caused stroke
-Purulent drainage positive for Staph aureus
-Status post partial amputation in the OR with podiatry today 06/23
-Planed for revascularization 06/24 aborted d/t PE/Vfib arrest as above
-Continue local wound care, empiric meropenem
-Continuing anticoagulation with IV heparin, warfarin held for surgical procedures
-Appreciate input from ID and podiatry
#reported hx LV thrombus
-Dx 2 weeks prior to arrival [facility], suspect due to severely depressed LVEF
-Continue hep gtt
#CVA
- Suspect secondary to cardiac emboli
� Acute/subacute infarct in the right periventricular white matter/centrum semiovale region
� Anticoagulated with IV heparin drip
� Neurology consult appreciated
� Carotids unremarkable
- hold PT OT d/t critical illness requiring ICU care as above
#Acute on chronic HFrEF
EF 15-20% per 2 weeks ago
-received IV Lasix 40mg BID on hold w/ pressor support as above
-Cards on board
-Continue carvedilol 12.5 mg twice daily, Farxiga 10 mg daily with hold parameters (can hold if bp cannot tolerate)
-Hold spironolactone hold Entresto will hold hydralazine 25 mg 3 times daily
#Choledocholithiasis
-ERCP 06/21 with stone identified and removed and biliary sphincterotomy performed
-GI eval appreciated
#Transaminitis
� Secondary to choledocholithiasis, ERCP performed 06/21
� Resolving after ERCP
#GHAZAL on ckd3
-probable cardiorenal
-Initial creat 1.6, improved to 1.2 today, prior creat 0.8 in 2020
-Follow BMP
-holding Entresto, spironolactone
#DM 2/diabetic neuropathy
-Uncontrolled, hemoglobin A1c 10.8% this admission
-DM MOID [employer] S[employer] TE[employer]ER eval appreciated
-insulin gtt hyperglycemia protocol as per ICU
-Continue gabapentin 600 mg daily
#Mild Hyponatremia
monitor
#HLD
-Continue statin
#Nicotine dependence
DVT prophylaxis hep gtt
Full code
Poor Prognosis
Total Critical Care Time__50___ minutes. I was immediately available to the patient and staff. I personally examined, reviewed labs, diagnostic images/reports, interpretations, treatment plans, discussed patient care with other providers, and
patient's family (patient unable to make decisions for himself at this time), entered orders as appropriate and documented the medical record.
Anticipated Discharge: > 48 hours
Subjective/Interval History
-
Date of Service: June 25, 2024
spontaneous eye movements. remains intubated on TTM. pressors weaning down. No acute distress. Not following commands
Objective Data
-
Labs:
Laboratory Results
06/25/24 06/25/24 06/25/24
00:10 04:03 05:48
WBC 23.9 H 23.7 H
Hgb 8.3 L 8.1 L
Hct 24.1 L 23.1 L
Plt Count 366 330
APTT > 200 H*
HCO3 24.2
Sodium 132 L 134 L
Potassium 4.2 4.3
Chloride 103 103
Carbon Dioxide 24 25
BUN 53 H 55 H
Creatinine 1.3 1.4 H
Glucose 99 112 H
Calcium 8.7 8.6
Total Bilirubin 1.6 H 1.7 H
AST 72 H 64 H
ALT 48 47
Alkaline Phosphatase 198 H 194 H
03/18/25 03/18/25
12:00 18:00
WBC Pending Pending
Hgb Pending Pending
Hct Pending Pending
Plt Count Pending Pending
APTT
HCO3 Pending
Sodium Pending Pending
Potassium Pending Pending
Chloride Pending Pending
Carbon Dioxide Pending Pending
BUN Pending Pending
Creatinine Pending Pending
Glucose Pending Pending
Calcium Pending Pending
Total Bilirubin Pending Pending
AST Pending Pending
ALT Pending Pending
Alkaline Phosphatase Pending Pending
Vital Signs:
Vital Signs
Temp Pulse Resp BP Pulse Ox
96.6 F L 53 20 119/88 100
06/25/24 06:00 06/25/24 06:00 06/25/24 06:00 06/24/24 14:56 06/25/24 06:00
I&O
06/24/24 06/25/24 06/26/24
06:59 06:59 06:59
Intake Total 710 / 710 2386.8 / 2386.8
Output Total 3075 / 3075 1132 / 1132
Balance -2365 / -2365 1254.8 / 1254.8
--- NOTE | 2024-06-25 08:02 | W.PN.CARDCBS ---
Today's Communication / Plan
-
Continue supportive care
Consider amiodarone via tube if heart rate permits
Eventually will need diuretic and if possible reinitiation of GDMT
Ongoing neurologic assessment
Ultimately neurologic outcome will determine level of care
Impression / Plan
-
PCP: Dr. Sherwood
Cardiology: Dr. Ny, last seen 06/2022
Impression:
Intraoperative PEA/ventricular fibrillation arrest 06/24/2024
Admitted with confusion and acute HFrEF 06/18/24
Tiny nonhemorrhagic acute/subacute infarct in the right periventricular white matter/centrum semiovale region by MRI 06/19/2024
Recent admission to [facility] for acute HF and foot wound 06/06/24 until 06/12/24
Hypotension
Acute HFrEF
CM EF 15% by echo at [place] 06/07/24
h/o improved NICM EF 25% by echo 03/2018 and then improved to 40% by echo 06/2022
Nonobstructive CAD by cath 2017
Medication noncompliance
Newly diagnosed LV thrombus
1.5 x 1.2 cm LV apical clot on echo at [place] 06/07/24
Chronic warfarin managed by [facility]
started for LV clot 06/07/24
Supratherapeutic INR on admission
Hyponatremia
GHAZAL on CKD 3a
Elevated LFTs
Chews tobacco
Unwitnessed fall
Echo 05/30/2024: [facility] study, EF 15 to 20%, severe global hypokinesis and septal dyskinesis, small and organized thrombus in the LV apex measuring 1.5 x 1.2 cm, grade 3 diastolic dysfunction, at least mildly dilated RV with reduced
systolic function, mild to moderate MR, mild pericardial effusion seen posteriorly without evidence of tamponade
Echo 06/20/24 with IV echo contrast: LV ejection fraction severely reduced, 15-20% with global hypokinesis. Dilated, hypokinetic right ventricle. Biatrial dilatation. Mild MR. Mild to moderate TR. Estimated pulmonary artery systolic pressure
50-55 mmHg. Small pericardial effusion without evidence of hemodynamic compromise. No LV apical thrombus
Plan:
Admitted with change in mental status and found to have small nonhemorrhagic right hemispheric CVA, recently hospitalized with LV thrombus and acute and chronic HFrEF with left lower extremity wound infection. Also with choledocholithiasis, status
post ERCP and sphincterotomy with stone extraction June 21. Underwent debridement of left foot wound 317, received treatment for acute HFrEF during hospital stay, went for right lower extremity percutaneous revascularization procedure today and
upon induction of anesthesia had pulseless electrical activity degenerating into VF requiring ACLS and ultimately return of spontaneous circulation. Now intubated on pressors in ICU.
PEA/ventricular fibrillation arrest: Currently undergoing targeted temperature management, rhythm is stable. Amiodarone has been held related to bradycardia. Recommend low-dose amiodarone via tube if heart rate permits. Ultimately, if neurologic
outcome is good, he will need secondary prevention ICD prior to discharge.
Acute on chronic HFrEF: Volume status seems reasonable at present ultimately will likely need diuresis and reinstitution of GDMT if neurologic status improves.
PAD, foot wound, methicillin sensitive Staph aureus bacteremia: Per vascular surgery, hospitalist, podiatry
Recent right periventricular nonhemorrhagic CVA: Unclear whether cardioembolic, major issue now is concerns regarding anoxic encephalopathy, neuro is following
LV thrombus: Not seen on most recent echo,
Choledocholithiasis: ERCP June 21 with sphincterotomy and stone extraction
GHAZAL: Creatinine relatively stable at 1.4 despite PEA/VF arrest, will continue to follow
DM:
Toxic metabolic encephalopathy on admission/possible CVA as contributor, at this point anoxic encephalopathy is the major contributor
Discussed with waterfront director, nursing, pharmacy
Total time, 38 minutes
HPI: [facility] came to [facility] from home yesterday with confusion and garbled speech and was admitted for acute HF and cardiology has been consulted. Patient is a poor historian and gave me permission to call his daughter. Also reviewed 67 pages of
records from recent [place] admission. Patient had NICM diagnosed in 2018 and with GDMT his EF improved to 40% by last echo at in 06/2022. Patient then stopped coming to cardiology appts at , but reportedly did not start following elsewhere.
Patient then retired and stopped taking his medications on a regular schedule despite reminders from family. Patient started with LE wounds 02/2024 and following with wound care center and seemed to be improving. Patient then started with a cough
and saw his PCP 05/02/24 and lungs were clear and he was started on promethazine and albuterol. Patient was then admitted to [place] with SOB 06/06/24 and during that admission was found to have EF down to 15% and he had a new LV clot and was started
on warfarin. Patient was also d/c'd to home on Coreg, Entresto and spironolactone which are meds he had been on when he was last seen in the cardiology office in 2022. Patient was diuresed with Lasix IV and d/c'd to home on Lasix 40 mg PO BID.
Patient's daughter reports that patient was not taking meds at home and when VN came to see him he had garbled speech and was sent to the ER.
Progress Note - Appeals Court Associate Justice
Subjective
Date of Service: June 25, 2024:
Current meds: IV heparin, vasopressin on standby, norepinephrine on hold, fentanyl, propofol, Norcuron, insulin, IV amiodarone currently on hold with bradycardia, currently on hold, aspirin, meropenem, BuSpar, acetaminophen, pantoprazole, IV insulin
119/88, pulse 53, respiratory 20, Lasix currently on hold, temp is 35.9 degrees, weight is 105.1 kg, his eyes are open, spontaneously blinking, does not respond to verbal stimuli, appears comfortable, head neck exam unremarkable, exam limited by
cooling pads, but lungs relatively clear, soft systolic murmur, JVD probably okay, abdomen benign, not much edema
Head CT no acute abnormality
ECG: Shortly after code, sinus rhythm, nonspecific ST and T wave changes, borderline first-degree AV block, PVCs
Echo 06/24/2024: EF 10 to 15%, possible inferior apical akinesis, mild mitral regurgitation, MAC, thickened leaflets, dilated left atrium, moderate TR, pulmonary artery pressure 62, r RV is dilated and hypokinetic, small pericardial effusion, no
significant change from prior
White count 23.7, hemoglobin 8.1, platelets 330, BUN and creatinine 55 and 1.4, creatinine was 1.2 on the 16th, proBNP 11,200, troponin 0.15
Objective
Labs:
Labs
Hgb 8.1 g/dL (13.0-18.0) L 06/25/24 05:48
Hct 23.1 % (39.0-52.0) L 06/25/24 05:48
Plt Count 330 10^3/uL (130-400) 06/25/24 05:48
PT 19.7 Sec (11.4-14.6) H 06/24/24 11:02
INR 1.64 06/24/24 11:02
APTT > 200 Sec (23.4-35.0) H* 06/25/24 04:03
Sodium 134 mmol/L (135-145) L 06/25/24 05:48
Potassium 4.3 mmol/L (3.5-5.1) 06/25/24 05:48
BUN 55 mg/dl (9-20) H 06/25/24 05:48
Creatinine 1.4 mg/dL (0.7-1.3) H 06/25/24 05:48
Glucose 112 mg/dl (70-99) H 06/25/24 05:48
Troponins
06/24/24 06/24/24 06/24/24
08:45 11:02 11:02
Troponin I 0.026 0.080 H* D Cancelled
06/24/24 06/24/24 06/25/24
16:52 22:02 05:48
Troponin I 0.150 H* D 0.141 H* 0.101 H* D
Vital Signs and I&O:
Vital Signs
Temp Pulse Resp BP Pulse Ox
35.9 C L 53 20 119/88 100
06/25/24 06:00 06/25/24 06:00 06/25/24 06:00 06/24/24 14:56 06/25/24 07:45
Vital Signs
Temp Pulse Resp BP Pulse Ox
35.9 C L 53 20 119/88 100
06/25/24 06:00 06/25/24 06:00 06/25/24 06:00 06/24/24 14:56 06/25/24 07:45
Intake & Output
06/23/24 06/24/24 06/25/24 06/26/24
07:59 07:59 07:59 07:59
Intake Total 960 / 960 710 / 710 2386.8 / 2386.8
Output Total 700 / 700 3075 / 3075 1132 / 1132
Balance 260 / 260 -2365 / -2365 1254.8 / 1254.8
Physical Exam
Physical Exam
See above
--- NOTE | 2024-06-25 08:28 | W.PN.VS ---
Addendum entered and electronically signed by Bharathi Orosco III, MD 06/25/24 10:41:
This patient was seen and examined in collaboration with PAMELA Jeffrey. I agree with the history and physical exam as well as the assessment and plan. I have the following additions:
Will follow his clinical trajectory closely and reevaluate for possible lower extremity arteriogram and possible endovascular intervention at some point
Discussed with at daughter at bedside
Signed:
Bharathi Orosco III, MD
[facility]
[phone] (cell)
Original Note:
Today's Communication / Plan
-
Patient seen and examined at bedside with Dr. Bharathi Orosco III, below plan reviewed with attending.
Assessment/Plan
-
Assessment: 63-year-old male admitted to hospital for bacteremia and left hallux gangrene attempted left lower extremity angiogram on 06/24/2024, however patient had cardiac arrest on induction of anesthesia and OR case was aborted, currently in ICU
for TTM postarrest.
Plan:
Patient remains in critical condition undergoing TTM and requiring pressor support, once patient is stabilized we will plan for left lower extremity angiogram
Subjective Data
-
Date of Service: June 25, 2024
Patient seen and examined at bedside, remains intubated and sedated.
Objective Data
-
Vital Signs
Temp Pulse Resp BP Pulse Ox
96.6 F L 53 20 119/88 100
06/25/24 06:00 06/25/24 06:00 06/25/24 06:00 06/24/24 14:56 06/25/24 07:45
Intake and Output
06/24/24 06/25/24 06/26/24
06:59 06:59 06:59
Intake Total 710 / 710 2386.8 / 2386.8
Output Total 3075 / 3075 1132 / 1132
Balance -2365 / -2365 1254.8 / 1254.8
Intake:
Oral fluids 360 / 360 480 / 480
IV fluids (Total) 50 / 50 1231.8 / 1231.8
Normosal 50 / 50
amiodarone 304.1 / 304.1
epinephrine 15 / 15
heparin 288 / 288
insulin 59.6 / 59.6
levophed 419.1 / 419.1
vasopressin 146 / 146
IV piggybacks 300 / 300 160 / 160
Amount instilled into GI Tube ( 515 / 515
Total)
[place] Sump 515 / 515
Output:
Gastrointestinal tube output ( 475 / 475
Total)
[place] Sump 475 / 475
Urine, Orosco 657 / 657
Urine, Voided 3074
Calcium 8.6 mg/dl (8.4-10.2) 06/25/24 05:48
Phosphorus 3.7 mg/dl (2.5-4.5) 06/25/24 05:48
Magnesium 2.6 mg/dl (1.6-2.3) H 06/25/24 05:48
Total Bilirubin 1.7 mg/dl (0.2-1.3) H 06/25/24 05:48
AST 64 U/L (17-59) H 06/25/24 05:48
ALT 47 U/L (0-50) 06/25/24 05:48
Alkaline Phosphatase 194 U/L (38-126) H 06/25/24 05:48
Total Protein 4.8 g/dl (6.3-8.2) L 06/25/24 05:48
Albumin 2.1 g/dl (3.5-5.0) L 06/25/24 05:48
Physical Exam
-
Intubated and sedated
No tachycardia
Left groin puncture site CDI, no evidence of hematoma
Left foot with clean dry intact podiatry dressing
--- NOTE | 2024-06-25 08:39 | PN.DE.MGMTRT ---
Insulin Management
- -
06/25/2024: Diabetes Management Consult Follow up
63 year old male who presented to ER on 06/18/24 with report of AMS changes, of staring, garbled speech, confusion, and balance difficulty lasting an unclear amount of time. Of note, pt was recently admitted at [facility] for LV thrombus
and HFrEF (on Coumadin).
PMH: NICM, mild MR, HTN, Hypercholesterolemia Renal insufficiency, RLE Cellulitis, nicotine use and IDDM. Prior to admission was taking Levemir 20 units BID, Humalog 5 units AC and Farxiga 10mg daily prior to admission. A1C 10.8%.
MRI brain on 06/19/25 demonstrated a tiny nonhemorrhagic acute/subacute infarct in the right periventricular white matter/centrum semiovale region.
His hospital admission has also included an ERCP on 06/21/24. Pt was also noted for a chronic nonhealing left foot wound as well as a more acute gangrenous left hallux and associated foot infection. He underwent a partial first ray resection on 06/23.
OR 06/24/24 for RLE percutaneous revascularization. Upon anesthesia induction patient PEA/Vfib arrested and underwent ACLS until ROSC was achieved and procedure was aborted.
Patient remains critically ill intubated and sedated, unable able to interview, no family at bedside. Information obtained from chart review
Cr 1.4, eGFR >55.78 today.
Currently requiring 1.5-8 units of insulin/hr. Patient to start rewarm and tube feeds at [facility].
Will cont current management plan and reassess in AM for readiness to transition off the drip if medically stable.
Discussed with nurse.
Diabetes History
- -
Type of Diabetes: 2 requiring insulin
Pre-Admission Diabetes Regimen
06/24/24 06/24/24 06/24/24
08:45 11:02 11:02
Creatinine 1.2 1.2 Cancelled
06/24/24 06/25/24 06/25/24
16:52 00:10 05:48
Creatinine 1.3 1.3 1.4 H
Lab Results
Hemoglobin A1c 10.8 % (4.0-5.6) H 06/19/24 05:43
Insulin Pump Settings
IP Diabetes Regimen
06/24/24 06/24/24 06/24/24
08:45 10:45 11:02
Glucose 280 H 268 H
POC Glucose 302 H
06/24/24 06/24/24 06/24/24
11:02 12:13 13:00
Glucose Cancelled
POC Glucose 310 H 301 H
06/24/24 06/24/24 06/24/24
13:59 15:01 16:06
Glucose
POC Glucose 286 H 229 H 258 H
06/24/24 06/24/24 06/24/24
16:52 17:02 17:59
Glucose 234 H
POC Glucose 242 H 117 H
06/24/24 06/24/24 06/24/24
18:51 20:08 21:10
Glucose
POC Glucose 187 H 159 H 154 H
06/24/24 06/25/24 06/25/24
22:04 00:10 00:16
Glucose 99
POC Glucose 147 H 104 H
06/25/24 06/25/24 06/25/24
01:17 02:16 03:15
Glucose
POC Glucose 105 H 111 H 113 H
06/25/24 06/25/24 06/25/24
04:56 05:48 07:11
Glucose 112 H
POC Glucose 120 H 130 H
Patient Education
[2024-06-25 09:40] LABS: Glucose - Point of Care 110 mg/dl (70-99)
--- NOTE | 2024-06-25 09:45 | W.PN.ID1 ---
Date of Service
Date of Service: June 25, 2024
Today's Communication
- continue meropenem
- will require a course of home IV antibiotics , duration pending course
Assessment / Plan
MSSA Bacteremia
Possible endocarditis
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
PEA/v fib arrest 06/24
CVA
Dm2 uncontrolled
- 06/21 and 06/22 blood cultures remain no growth to date
- given timing of blood cultures, history of chronic wounds, suspect true bacteremia, source is most likely the necrotic tissue of the L great toe, unlikely to be from a GI source
- TTE without vegetations, may eventually consider empiric treatment for endocarditis vs mikey if stabilizing
- RF +, UA not consistent with glomerulonephritis
- continue meropenem
- will require a course of home IV antibiotics , duration pending course
- patient remains critically ill on multiple pressors
Choledocholithiasis s/p ERCP
- meropenem as above
Chief Complaint
-: Other (wet gangrene, mssa bacteremia, possible endocarditis)
Subjective / Review of Systems
on hypothermia protocol
declining pressor requirements
on 30% fio2
intubated and sedated
Vital Signs / Physical Exam
Vital Signs
Vital Signs
Temp Pulse Resp BP Pulse Ox
96.8 F L 55 17 119/88 100
06/25/24 09:00 06/25/24 09:00 06/25/24 09:00 06/24/24 14:56 06/25/24 09:00
Physical Exam
Constitutional: Acutely Ill and Chronically Ill
Cardiovascular: Regular Rate and S1/S2; Negative Murmur or Rub
Pulmonary: Clear and Symmetric; Negative Wheezes or Rales
Gastrointestinal: Soft, Non Tender, Non Distended and Normal Bowel Sounds
Skin: Warm and Dry; Negative Rash or Jaundice
Wound: Other (dressing clean, dry, intact)
Objective Data
Lab Data
PT 19.7 Sec (11.4-14.6) H 06/24/24 11:02
INR 1.64 06/24/24 11:02
APTT > 200 Sec (23.4-35.0) H* 06/25/24 04:03
Estimated Creat Clear 65 ml/min 06/25/24 05:48
Lactic Acid 1.2 mmol/L (0.7-2.0) 06/25/24 05:48
Total Bilirubin 1.7 mg/dl (0.2-1.3) H 06/25/24 05:48
AST 64 U/L (17-59) H 06/25/24 05:48
ALT 47 U/L (0-50) 06/25/24 05:48
Alkaline Phosphatase 194 U/L (38-126) H 06/25/24 05:48
Most recent labs reviewed.
Chest X-Ray: Image Reviewed and Report Reviewed (Patchy right lung opacity which could represent pneumonia/pneumonitis.)
CT Scan: Image Reviewed and Report Reviewed (no intracranial abnormality)
Micro Results:
06/21/24 09:33 Blood Culture - Preliminary
Blood/Venous No Growth in 4 days- Final report to follow
06/22/24 13:23 Blood Culture - Preliminary
Blood/Venous No Growth in 48 hours- Final report to follow
06/22/24 14:36 Wound Culture - Final
Abscess S aureus-Methicillin Sensitive
Gram Stain - Final
06/20/24 00:42 Blood Culture - Final
Blood/Venous S aureus-Methicillin Sensitive
Gram Stain - Final
06/20/24 01:59 Blood Culture - Final
Blood/Venous S aureus-Methicillin Sensitive
Gram Stain - Final
06/18/24 16:51 Urine Culture - Final
Urine NO GROWTH
06/18/24 16:11 Influenza Types A & B (HUBER) - Final
Nasal Swab Negative for Influenza A & B, NAAT
Negative results must be combined with clinical observations
and patient history.
Nucleic Acid Amplification test (NAAT)performed on the
[employer] platform.
Other: Image Reviewed (AXR) and Report Reviewed
--- NOTE | 2024-06-25 09:58 | PTCARENOTE ---
Assumed care of pt. approx 0700.
TTM protocol. Rewarming to start at 1300. see flowsheets for details.
ROUND NOTES:
-Alkalotic on AM GAS, rate adjusted per [facility] [employer].
-MAP goals adjusted to greater then 70.
Norepi titrated off, remains on insulin gtt.
All protective reflexes intact, however no pain W/D, + triple flexion in R L E, not over breathing ventilator.
Family updated at round regarding plan of care, goals of care discussed pt. remains full code at this time.
[2024-06-25] MEDS: NOVOLOG FLEXPEN SC ×2 (10:26→13:23)
[2024-06-25] MEDS: PROTONIX IV 40 MG IV (10:27)
[2024-06-25] MEDS: ASPIR LOW (ENTERIC COATED) PO (10:27)
[2024-06-25] MEDS: NSS (PRESERVATIVE FREE) 10 ML IV (10:28)
[2024-06-25] MEDS: REFRESH CELLUVISC GEL 1 DROPS OPHTH ×2 (10:28→21:37)
[2024-06-25 11:33] LABS: Glucose - Point of Care 107 mg/dl (70-99)
[2024-06-25 11:34] LABS: B.E. 3.2 mmol/L; HCO3 25.9 mmol/L (21-28); PCO2 31 mmHg (35-48); PO2 309 mmHg (83-108); pH 7.53 (7.35-7.45)
--- NOTE | 2024-06-25 11:57 | PTCARENOTE ---
Marleyo changed to PO w. new hold parameters in place see order for details.
Neurology rounded no changes form their standpoint.
SABINE called, Updated provided.
[2024-06-25 12:24] LABS: % Basophils 0.1 % (0-2); % Immature Granulocytes 0.7 % (0-0.5); % Lymphocytes 5.1 % (20.5-51.1); % Monocytes 5.2 % (1.7-9.3); % Neutrophils 88.9 % (42.2-75.2); Absolute Immature Granulocytes 0.1 10^3/uL (0-0.05); Absolute Lymphocytes 1.1 10^3/uL (1.2-3.4); Absolute Monocytes 1.1 10^3/uL (0.1-0.6); Absolute Neutrophils 18.2 10^3/uL (1.4-6.5); Hematocrit 21.6 % (39.0-52.0); Hemoglobin 7.3 g/dL (13.0-18.0); Mean Corp Hgb Conc. 33.8 g/dL (33.0-37.0); Mean Corpuscular Hgb 28.2 pg (27.0-31.0); Mean Corpuscular Volume 83.4 fL (80.0-94.0); Mean Platelet Volume 10.1 fL (7.4-10.4); Nucleated Red Blood Cells % 0 % (-); Platelet Count 267 10^3/uL (130-400); Red Blood Cell Count 2.59 10^6/uL (4.70-6.10); Red Cell Dist. Width 16.2 % (11.5-14.5); White Blood Cell Count 20.5 10^3/uL (4.8-10.8)
[2024-06-25 12:37] LABS: Lactic Acid 0.9 mmol/L (0.7-2.0)
[2024-06-25 12:44] LABS: ALT (SGPT) 40 U/L (0-50); AST (SGOT) 56 U/L (17-59); Alkaline Phosphatase 175 U/L (38-126); Blood Urea Nitrogen 55 mg/dl (9-20); Calcium 8.3 mg/dl (8.4-10.2); Carbon Dioxide 29 mmol/L (22-30); Chloride 103 mmol/L (98-107); Estimated Creatinine Clearance 65 ml/min; Glucose 110 mg/dl (70-99); Phosphorus 3.9 mg/dl (2.5-4.5); Potassium 4.3 mmol/L (3.5-5.1); Sodium 134 mmol/L (135-145); Total Bilirubin 1.6 mg/dl (0.2-1.3); Total CK 125 U/L (55-170); Total Protein 4.5 g/dl (6.3-8.2); eGFR 55.78
[2024-06-25 13:10] LABS: CKMB 1.5 ng/ml (0.0-3.4)
--- NOTE | 2024-06-25 13:23 | PTCARENOTE ---
Started rewarm 1300.
Hemodynamically stable.
[2024-06-25] MEDS: LOW STRENGTH ASPIRIN 81 MG TUBE (13:56)
--- NOTE | 2024-06-25 14:13 | W.PN.INTV ---
Today's Communication / Plan
Recommendations
-Continue to wean Levophed
-Switch amiodarone infusion to PO amiodarone via feeding tube
-Start tube feeding
-Continue to stay off sedation
-Low tidal volume to 450 and respiratory rate to 18, follow-up ABG in an hour
Assessment
-
63 old gentleman with known history of LV EF 10 to 15% and pulmonary hypertension was scheduled for arteriogram in the OR. Post induction with propofol, patient developed progressive hypotension followed by a PEA arrest and CPR was started.
Subsequently patient developed ventricular tachycardia and at some point ventricular fibrillation requiring ongoing CPR and defibrillation. Eventually ROSC was achieved and patient was transferred to ICU, intubated and on mechanical ventilation.
Core Drill Operator consult was requested for further management. Prior to this event, patient has been in the hospital for a gangrenous right foot status post ray amputation and has been on meropenem for MSSA bacteremia with sepsis. Stays also
complicated by choledocholithiasis status post ERCP and stone retrieval.
last 24 hrs:
-Patient has been more awake today, eyes open, does not make eye contact however
-Currently on Levophed at 2, insulin drip, heparin infusion
-TTM, currently being rewarmed
-Amio drip transition to oral at a lower dose, due to transient bradycardia
-Blood gas, 7.51, 31, 159, 500 x 20 x 30% with a PEEP of 5.
-Fluid balance, +774 mL
#1. Cardiac arrest with PEA followed by Ventricular Tachycardia followed by Polymorphic VT/V Fib
-Hypotension and PEA arrest post induction with Propofol. S/p 3 rounds of ACLS and 4 defibrillations followed by ROSC
-Switch Amiodarone to PO
-Target K >4 and Mg >2
-Telemetry
-ECHO reviewed
-Stat CT head negative for acute changes
-Targeted temperature management with goal to keep normothermia and avoid fever, warming phase now
-Serial exam
-Monitor electrolytes closely
-Target MAP lowered to 70 now, after 24 hrs of 80
#2. Shock, cardiogenic and also vasoplegia post cardiac arrest
-Known h/o LV failure and Severe Pulmonary HTN
-Off Vasopressin. titrate Levo down
-Continue Meropenem
-ABG suggestive of respiratory alkalosis, tidal volume and respiratory rate both lowered, follow-up ABG in 1 hour.
#3. Severe non-ischemic cardiomyopathy with EF 10-15% with Pulmonary HTN (62mm) with LV Thrombus
-Cardiology service on case
-Vasopressors as needed
-Monitor I/O closely
-Continue Heparin
#4. RLL Aspiration pneumonia vs Pneumonitis
-Continue Meropenem
#5. 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
-ID service on case. Bacteremia has since resolved
-Podiatry service and Vascular service on case
-Ongoing oozing noted
-Serial H/H, transfuse to keep Hb above 8
#6. Concern for ischemic/Anoxic encephalopathy
-Patient has intact Gag reflex, corneal reflex. Pupil small with minimal response to light. More awake with eyes open, did not make eye contact however. no other meaningful communication
-Stay off sedation'
-Neurology service on case
GI Prophylaxis: IV PPI
Critical Care time 35 mins -- The patient is admitted for acute critical illness for the treatment of vital organ failure and/or prevention of further life-threatening conditions. Total care includes time spent in review of history, physical exam,
medications, hemodynamic/ventilator parameters, laboratory data, imaging and discussion with house staff, pharmacy, respiratory therapy, soiled linen distributor, and nursing.
Data:
ECHO 06/2024: Normal left ventricular chamber size. Severely reduced left ventricular
systolic function. Mild concentric left ventricular hypertrophy. Severe global
hypokinesis with possible inferior and apical akinesis. Left ventricular
ejection fraction is 10-15 % by visual estimate.
Mitral valve opens normally. Thickened mitral valve leaflets. Mitral annular
calcification. Mild mitral regurgitation.
Moderately dilated left atrium.
Tricuspid valve opens normally. Moderate tricuspid regurgitation. Estimated
pulmonary artery pressure of 62 mmHg assuming a right atrial pressure of 3
mmHg.
Moderately dilated right atrium.
Right ventricle appears mildly dilated and hypokinetic.
Small pericardial effusion without evidence of hemodynamic compromise.
Since echocardiogram 06/20/2024, there is no significant change.
CXR 06/24/2024
Endotracheal tube with tip in trachea above the salazar. No pneumothorax.
Patchy right lung opacity which could represent pneumonia/pneumonitis.
Nasogastric tube with tip in proximal stomach.
Subjective Dataa
Subjective Data
Date of Service:
Date of Service: June 25, 2024
Subjective:
Patient intubated, mechanically ventilated, a bit more awake however does not make eye contact. Off sedation.
Review of Systems
General: Unobtainable - Pat Unresp
Objective Data
Data Reviewed
Vital Signs / I&O / Oxygen:
Vital Signs
Temp Pulse Resp BP Pulse Ox
96.9 F L 57 19 119/88 100
06/25/24 13:00 06/25/24 11:45 06/25/24 11:45 06/24/24 14:56 06/25/24 13:22
Intake and Output
06/24/24 06/25/24 06/26/24
06:59 06:59 06:59
Intake Total 710 / 710 2386.8 / 2399.6 103.0 / 103.0
Output Total 3075 / 3075 1132 / 1142 65 / 65
Balance -2365 / -2365 1254.8 / 1257.6 38.0 / 38.0
SaO2 [A/C] 100
SaO2 100
Nasal Cannula flow liters per 4
minute
Physical Exam
General: Comfortable
HEENT: Normocephalic
Cardiovascular: Regular Rhythm
Respiratory: Clear
GI: Soft and Non Distended
Neurology: Awake
Skin: Warm
Labs/Micro/Reports
Lab Data
06/25/24 17:00
Laboratory Results
06/24/24 06/25/24 06/25/24
16:52 00:10 04:03
APTT > 200 H* > 200 H*
pH 7.50 H
pCO2 31 L
pO2 159 H
HCO3 24.2
O2 Delivery Level 100%
06/25/24 06/25/24 06/25/24
11:26 12:00 12:12
APTT 88.0 H
pH 7.53 H Cancelled
pCO2 31 L Cancelled
pO2 309 H Cancelled
HCO3 25.9 Cancelled
O2 Delivery Level Cancelled
Microbiology
06/22/24 13:23 Blood/Venous Blood Culture - Preliminary
No Growth in 72 hours- Final report to follow
06/21/24 09:33 Blood/Venous Blood Culture - Preliminary
No Growth in 4 days- Final report to follow
06/22/24 14:36 Abscess Wound Culture - Final
S aureus-Methicillin Sensitive
06/22/24 14:36 Abscess Gram Stain - Final
06/20/24 00:42 Blood/Venous Blood Culture - Final
S aureus-Methicillin Sensitive
06/20/24 00:42 Blood/Venous Gram Stain - Final
06/20/24 01:59 Blood/Venous Blood Culture - Final
S aureus-Methicillin Sensitive
06/20/24 01:59 Blood/Venous Gram Stain - Final
[2024-06-25 14:38] LABS: Glucose - Point of Care 117 mg/dl (70-99)
[2024-06-25 16:25] LABS: Glucose - Point of Care 121 mg/dl (70-99)
[2024-06-25 16:47] LABS: B.E. 4.4 mmol/L; HCO3 26.7 mmol/L (21-28); PCO2 32 mmHg (35-48); PO2 172 mmHg (83-108); pH 7.53 (7.35-7.45)
--- NOTE | 2024-06-25 17:04 | W.PN.NEURO.1 ---
Today's Communication / Plan
-
Consider repeated EEG to determine if the patient is having seizure activity preventing full return of cognitive function
Consider repeated neuroimaging if the patient has stalled improvement of cognitive return
Continue supportive care
Neuro Assessment/Plan
Assessment
Patient previously evaluated for underlying cognitive dysfunction, experiencing severe anoxic injury 1 day ago
Prognosis is mildly favorable and that the patient's initial CT of the head did not demonstrate cerebral edema or anoxic injury. The prognosis is also made more favorable by the patient having new onset today of spontaneous eye opening. Best
prognostic possibility will be 72 hours after anoxic injury
Plan
Consider repeated EEG to determine if the patient is having seizure activity preventing full return of cognitive function
Consider repeated neuroimaging if the patient has stalled improvement of cognitive return
Continue supportive care
Will follow
Subjective/Objective
Subjective Data
Date of Service: June 25, 2024
Patient unable to bite his own medical history
Objective Data
Vital Signs
Temp Pulse Resp BP Pulse Ox
36.4 C 67 14 119/88 100
06/25/24 16:00 06/25/24 16:30 06/25/24 16:30 06/24/24 14:56 06/25/24 16:30
Lab Results
06/25/24 18:00
06/25/24 17:00
PT 19.7 Sec (11.4-14.6) H 06/24/24 11:02
INR 1.64 06/24/24 11:02
APTT 88.0 Sec (23.4-35.0) H 06/25/24 12:12
Sodium Cancelled 06/25/24 17:00
Potassium Cancelled 06/25/24 17:00
BUN Cancelled 06/25/24 17:00
Glucose Cancelled 06/25/24 17:00
Calcium Cancelled 06/25/24 17:00
Phosphorus Cancelled 06/25/24 17:00
Jxt-G-Ccxboqypice Pept 91710 pg/ml 06/24/24 11:02
Vitamin B12 884 pg/ml (318-476) 06/18/24 16:12
Patient Allergies
No Known Allergies Allergy (Verified 06/18/24 16:01)
Review of Systems
-
Unable to obtain full review of systems at this time due to: Patient Intubation and Aphasia
History Source: Patient
All other systems: Reviewed and negative
Physical Exam
-
General: No Apparent Distress, Intubated and Appears Stated Age
Eyes: Able to visualize OU, Round OU and [place] Conjunctivae
HEENT: Anicteric and Moist Mucous Membranes
Neck: Full Range of Motion
Respiratory: No Dyspnea
Cardiac: No JVD
GI: Non-distended
Skin: Unremarkable
Extremities: No Clubbing, No Cyanosis and No Edema
Psych: Unable to Assess
Extended Neurological Exam
Mood & Affect: Unable to Assess
Attention Span & Concentration: Awake and Unresponsive to Verbal Stimuli; Negative Alert, Interactive or Unresponsive to Physical Stimuli
Memory: Unable to Assess
Tremor: Hand Tremor Absent and Head Tremor Absent
Involuntary Movement: None
Speech: Unable to Assess
Cranial Nerve II: Left Eye: Pupillary Reactivity Unremarkable, Pupillary Size Unremarkable and Other (Blink to threat)
Cranial Nerve II: Right Eye: Pupillary Reactivity Unremarkable, Pupillary Size Unremarkable and Other (Blink to threat)
Cranial Nerves III, IV, : Extraocular Movement: Absent Doll's Eyes and Other (Spontaneously opened eyes without tracking)
Cranial Nerve V: Facial Sensation: Unable to Assess
Cranial Nerve VII: Facial Symmetry: Normal Facial Symmetry
Cranial Nerves IX, X: Palate Movement: Unable to Assess
Cranial Nerve XI: Shoulder Shrug: Unable to Assess
Cranial Nerve XII: Tongue Protusion: Unable to Assess
Muscle Strength, Overall: Negative Spontaneously Moves
Muscle Bulk & Tone: Bulk Unremarkable and Tone Unremarkable
Pronator Drift: Unable to Assess
Cold Sensation: Unable to Assess
Vibration Sensation: Unable to Assess
Touch Sensation: Negative Withdrawal to Pain
Coordination: Unable to Assess
Babinski Sign: Absent Bilaterally
Gait & Station: Unable to Assess
Data Reviewed
-
Labs: Report Reviewed
Reviewed with: Physician, Nurse and Nurse Practioner
Old Records: Summarized
--- NOTE | 2024-06-25 17:32 | PTCARENOTE ---
Vent settings adjusted again, Pt. now overbreathing vent in rate of 18-20s.
Tidal volume decreased to assist in alkalosis.
No further changes in pt. assessment.
Labs changed to Q4 per order protocol.
[2024-06-25 17:45] LABS: APTT 90.2 Sec (23.4-35.0)
[2024-06-25 17:49] LABS: ALT (SGPT) 42 U/L (0-50); AST (SGOT) 49 U/L (17-59); Albumin 2.2 g/dl (3.5-5.0); Alkaline Phosphatase 198 U/L (38-126); Blood Urea Nitrogen 54 mg/dl (9-20); Calcium 8.5 mg/dl (8.4-10.2); Carbon Dioxide 24 mmol/L (22-30); Chloride 100 mmol/L (98-107); Estimated Creatinine Clearance 65 ml/min; Glucose 143 mg/dl (70-99); Phosphorus 4.2 mg/dl (2.5-4.5); Potassium 4.6 mmol/L (3.5-5.1); Sodium 133 mmol/L (135-145); Total Bilirubin 1.8 mg/dl (0.2-1.3); Total Protein 5.1 g/dl (6.3-8.2); eGFR 55.78
[2024-06-25 18:00] LABS: % Basophils 0.1 % (0-2); % Immature Granulocytes 0.7 % (0-0.5); % Lymphocytes 4.6 % (20.5-51.1); % Monocytes 4.8 % (1.7-9.3); % Neutrophils 89.8 % (42.2-75.2); Absolute Immature Granulocytes 0.2 10^3/uL (0-0.05); Absolute Lymphocytes 1.2 10^3/uL (1.2-3.4); Absolute Monocytes 1.2 10^3/uL (0.1-0.6); Hematocrit 23.3 % (39.0-52.0); Hemoglobin 7.9 g/dL (13.0-18.0); Mean Corp Hgb Conc. 33.9 g/dL (33.0-37.0); Mean Corpuscular Hgb 28.1 pg (27.0-31.0); Mean Corpuscular Volume 82.9 fL (80.0-94.0); Mean Platelet Volume 10.1 fL (7.4-10.4); Nucleated Red Blood Cells % 0 % (-); Platelet Count 314 10^3/uL (130-400); Red Blood Cell Count 2.81 10^6/uL (4.70-6.10); Red Cell Dist. Width 16.2 % (11.5-14.5); White Blood Cell Count 25.6 10^3/uL (4.8-10.8)
[2024-06-25] MEDS: NOVOLOG FLEXPEN 2 UNITS SC (18:09)
[2024-06-25 18:20] LABS: Glucose - Point of Care 162 mg/dl (70-99)
[2024-06-25 18:40] LABS: Magnesium 2.5 mg/dl (1.6-2.3)
[2024-06-25 20:17] LABS: Glucose - Point of Care 192 mg/dl (70-99)
--- NOTE | 2024-06-25 20:30 | PTCARENOTE ---
Pt intubated/not sedated. Perrla 4. Protective reflexes intact. Pt responds to noxious stimuli, upper extremities 3/5, will reach up weakly toward ETT when suctioned. Pt will not track or follow commands, but mouthed 'ow' when noxious stimuli
applied. No movement noted in Left lower extremity. Right leg 2/5. Blinks spontaneously. Rewarming protocol as documented. NSR on monitor. Titrating insulin and heparin gtts to clinical endpoints. #8 ETT 25 at lip, vent settings as ordered. NGT
right nare 65cm, tube feeds as ordered, awaiting dietary rec. [place] with adry urine 50-75 hourly. Skin as documented. Labs q4h. Will monitor.
[2024-06-25 21:31] LABS: Glucose - Point of Care 236 mg/dl (70-99)
[2024-06-25] MEDS: PACERONE 200 MG TUBE (21:36)
[2024-06-25 21:50] LABS: ALT (SGPT) 41 U/L (0-50); AST (SGOT) 47 U/L (17-59); Albumin 2.3 g/dl (3.5-5.0); Alkaline Phosphatase 204 U/L (38-126); Blood Urea Nitrogen 55 mg/dl (9-20); Calcium 8.5 mg/dl (8.4-10.2); Carbon Dioxide 25 mmol/L (22-30); Chloride 102 mmol/L (98-107); Estimated Creatinine Clearance 65 ml/min; Glucose 218 mg/dl (70-99); Magnesium 2.5 mg/dl (1.6-2.3); Phosphorus 4.5 mg/dl (2.5-4.5); Potassium 4.9 mmol/L (3.5-5.1); Sodium 133 mmol/L (135-145); Total Bilirubin 2.1 mg/dl (0.2-1.3); eGFR 55.78
[2024-06-25 21:58] LABS: % Basophils 0.2 % (0-2); % Immature Granulocytes 0.8 % (0-0.5); % Monocytes 3.6 % (1.7-9.3); % Neutrophils 92.4 % (42.2-75.2); Absolute Basophils 0.1 10^3/uL (0-0.2); Absolute Immature Granulocytes 0.2 10^3/uL (0-0.05); Absolute Lymphocytes 0.9 10^3/uL (1.2-3.4); Absolute Monocytes 1.1 10^3/uL (0.1-0.6); Absolute Neutrophils 27.7 10^3/uL (1.4-6.5); Hematocrit 22.8 % (39.0-52.0); Hemoglobin 7.7 g/dL (13.0-18.0); Mean Corp Hgb Conc. 33.8 g/dL (33.0-37.0); Mean Corpuscular Hgb 28.4 pg (27.0-31.0); Mean Corpuscular Volume 84.1 fL (80.0-94.0); Mean Platelet Volume 10.2 fL (7.4-10.4); Nucleated Red Blood Cells % 0 % (-); Platelet Count 330 10^3/uL (130-400); Red Blood Cell Count 2.71 10^6/uL (4.70-6.10); Red Cell Dist. Width 16.7 % (11.5-14.5)
[2024-06-25 22:02] LABS: Glucose - Point of Care 264 mg/dl (70-99)
[2024-06-25 23:16] LABS: Glucose - Point of Care 253 mg/dl (70-99)
[2024-06-26] VITALS (12 sets, daily range): BP systolic 75–147; BP diastolic 44–92; BMI 28.0
[2024-06-26 00:19] LABS: Glucose - Point of Care 220 mg/dl (70-99)
[2024-06-26 00:22] LABS: B.E. -0.9 mmol/L; HCO3 23.1 mmol/L (21-28); PCO2 34 mmHg (35-48); PO2 142 mmHg (83-108); pH 7.44 (7.35-7.45)
[2024-06-26 00:26] LABS: O2 Therapy 100
[2024-06-26 00:56] LABS: Hematocrit 21.1 % (39.0-52.0); Hemoglobin 7.1 g/dL (13.0-18.0); Mean Corp Hgb Conc. 33.6 g/dL (33.0-37.0); Mean Corpuscular Hgb 28.6 pg (27.0-31.0); Mean Corpuscular Volume 85.1 fL (80.0-94.0); Mean Platelet Volume 10.1 fL (7.4-10.4); Platelet Count 310 10^3/uL (130-400); Red Blood Cell Count 2.48 10^6/uL (4.70-6.10); Red Cell Dist. Width 16.7 % (11.5-14.5); White Blood Cell Count 25.8 10^3/uL (4.8-10.8)
[2024-06-26 00:57] LABS: Glucose - Point of Care 259 mg/dl (70-99)
[2024-06-26] MEDS: STERILE WATER FOR INJECTION 10 ML IV ×4 (03:00→19:55)
[2024-06-26] MEDS: MERREM 500 MG IV ×4 (03:00→19:55)
[2024-06-26 03:09] LABS: Blood Urea Nitrogen 56 mg/dl (9-20); Calcium 8.1 mg/dl (8.4-10.2); Carbon Dioxide 24 mmol/L (22-30); Chloride 104 mmol/L (98-107); Creatine Phosphokinase 164 U/L (55-170); Estimated Creatinine Clearance 65 ml/min; Glucose 238 mg/dl (70-99); Magnesium 2.3 mg/dl (1.6-2.3); Phosphorus 4.3 mg/dl (2.5-4.5); Potassium 4.4 mmol/L (3.5-5.1); Sodium 134 mmol/L (135-145); Total CK 164 U/L (55-170); eGFR 55.78
[2024-06-26 04:14] LABS: Glucose - Point of Care 174 mg/dl (70-99)
[2024-06-26 04:42] LABS: CKMB 1.6 ng/ml (0.0-3.4)
[2024-06-26 05:08] LABS: Glucose - Point of Care 167 mg/dl (70-99)
[2024-06-26 05:11] LABS: B.E. 3.8 mmol/L; HCO3 27.4 mmol/L (21-28); PCO2 36 mmHg (35-48); PO2 162 mmHg (83-108); pH 7.49 (7.35-7.45)
[2024-06-26 05:22] LABS: APTT 76.7 Sec (23.4-35.0)
[2024-06-26 05:26] LABS: Hematocrit 20.6 % (39.0-52.0); Hemoglobin 6.7 g/dL (13.0-18.0); Mean Corp Hgb Conc. 32.5 g/dL (33.0-37.0); Mean Corpuscular Hgb 27.7 pg (27.0-31.0); Mean Corpuscular Volume 85.1 fL (80.0-94.0); Mean Platelet Volume 10.5 fL (7.4-10.4); Platelet Count 332 10^3/uL (130-400); Red Blood Cell Count 2.42 10^6/uL (4.70-6.10); Red Cell Dist. Width 16.6 % (11.5-14.5); White Blood Cell Count 25.6 10^3/uL (4.8-10.8)
[2024-06-26 05:48] LABS: Blood Urea Nitrogen 61 mg/dl (9-20); Calcium 8.1 mg/dl (8.4-10.2); Carbon Dioxide 27 mmol/L (22-30); Chloride 101 mmol/L (98-107); Estimated Creatinine Clearance 65 ml/min; Glucose 157 mg/dl (70-99); Magnesium 2.5 mg/dl (1.6-2.3); Phosphorus 4.3 mg/dl (2.5-4.5); Potassium 4.3 mmol/L (3.5-5.1); Sodium 134 mmol/L (135-145); eGFR 55.78
--- NOTE | 2024-06-26 05:48 | W.PN.UPDATE ---
Addendum entered and electronically signed by Laila Kruger MD 06/26/24 07:14:
Patient consents to transfusion noted in chart from this hospitalization. Most recent consent 06/24 prior to cardiac event. Discussed with at bedside also consenting to transfusion.
1PRBC transfusion ordered. follow up repeat H&H post-transfusion.
Original Note:
Update Note
Progress Note Update
HGb 6.7 done, type and screen completed. Left message with patient's for consent. Waiting cash person back.
--- NOTE | 2024-06-26 06:01 | DOWNTIME ---
There was a [employer] Salesperson Downtime on 06/26/2024 from 0100 to 06/27/2023 at 0420 . Downtime documentation of patient's care, including medication administrations, has been reconciled in the electronic record per guidelines. Refer to the
patient's paper chart under the miscellaneous tab to see printed paper medication records and downtime forms.
[2024-06-26 06:15] LABS: Glucose - Point of Care 131 mg/dl (70-99)
[2024-06-26] MEDS: TYLENOL ORAL SOLUTION 650 MG TUBE (06:29)
--- NOTE | 2024-06-26 06:54 | W.PN.HOSP.TC ---
Today's Communication/Plan
-
pressor support Vent mgmt TTM glycemic control tube feeds as per ICU
cont abx as per ID
hep gtt
transfuse 1PRBC follow up post-transfusion H&H
Possible restart Diuresis GDMT as per cardio
repeat EEG
Assessment / Plan
Assessment / Plan
Physical Exam
GEN: no acute distress
HEENT: EOMI, MMM
LUNGS: Intubated. CTA B/L without wheeze or rales
CV: Normal sinus rhythm no murmurs gallops
ABD: soft, BS+, NT, ND
EXT: left foot wound dressing clean dry intact
NEURO: spontaneous eye movements. not following commands
63M HFrEF CKD3 DM neuropathy HLD Nicotine dependence complicated hospital course with MSSA bacteremia, Left hallux gangrene, CVA suspect 2/2 cardiac emboli LV thrombus. Had partial amputation Lt Hallux Gangrene OR Podiatry 06/23. Patient was
planned for revascularization LLE 06/24 however developed PEA/Vfib arrest after anesthesia induction requiring ACLS. ROSC eventually achieved, patient was subsequently transferred to ICU intubated and requiring pressor support.
06/24/24 PEA/Vfib arrest following Anesthesia Induction
Acute Anoxic Encephalopathy
Underwent 3 rounds of ACLS and 4 defibrillations as per Cardio before ROSC was achieved
transferred to ICU intubated and on pressor support, poor neurologic recovery noted then, unresponsive off sedation
amiodarone gtt transitioned to PO via ngt
Cardio eval appreciated
Mincing Machine Operator Eval appreciated
Neuro Eval appreciated
weaned off pressor support
cont Vent mgmt tube feeds glycemic control TTM as per ICU
ECHO post-code appreciated EF 10-15% no significant change from prior ECHO 06/20/24
CT head appreciated no acute abn's
Mental status improving, awake with spontaneous eye movements, not following commands however.
Repeat EEG follow up possible anoxic brain injury
# MSSA bacteremia
-Blood cultures from 06/20 positive for MRSA
-Suspect secondary to left hallux wet gangrene, which itself is suspected due to embolic effect
-Antibiotics switched to meropenem, cont as per ID
-Repeat blood cultures from 06/21 and 06/22 with no growth to date
-Treatment of underlying wet gangrene, appreciate guidance from ID and podiatry
-strict NWB and elevation LLE as per Podiatry
#Left hallux gangrene:
-Suspect secondary to embolism as also caused stroke
-Purulent drainage positive for Staph aureus
-Status post partial amputation in the OR with podiatry today 06/23
-Planed for revascularization 06/24 aborted d/t PE/Vfib arrest as above
-Continue local wound care, empiric meropenem
-Continuing anticoagulation with IV heparin, warfarin held for surgical procedures
-Appreciate input from ID and podiatry
#reported hx LV thrombus
-Dx 2 weeks prior to arrival at [facility], suspect due to severely depressed LVEF
-Started on Coumadin anticoagulation 06/07/2024 for LV apical thrombus
-Coumadin on hold, on hep gtt for potential procedures
Progressive Anemia
- possible anemia of chronic disease vs blood loss from wound vs iatrogenic
-Hgb 6.7 06/26/24 1PRBC transfusion ordered follow up post-transfusion H&H
-check Iron panel B12 Folate
#CVA
- Suspect secondary to cardiac emboli
� Acute/subacute infarct in the right periventricular white matter/centrum semiovale region
� Anticoagulated with IV heparin drip
� Neurology consult appreciated
� Carotids unremarkable
- hold PT OT d/t critical illness requiring ICU care as above
#Acute on chronic HFrEF
EF 15-20%
-received IV Lasix 40mg BID held w/ pressor support as above
-eventual restart diuresis and possible reinitiation GDMT as per Cardio
-Cardio eval appreciated
#Choledocholithiasis
-ERCP 06/21 with stone identified and removed and biliary sphincterotomy performed
-GI eval appreciated
#Transaminitis
� Secondary to choledocholithiasis, ERCP performed 06/21
� Resolving after ERCP
#GHAZAL on ckd3
-probable cardiorenal
-Initial creat 1.6 since improved
-likely baseline 1.2-1,4
-monitor
#DM 2/diabetic neuropathy
-Uncontrolled, hemoglobin A1c 10.8% this admission
-DM MANAGER OUTREACH eval appreciated
-insulin gtt hyperglycemia protocol as per ICU
-Gabapentin 600 mg daily on hold d/t Encephalopathy as above
#Mild Hyponatremia
monitor
#HLD
-Continue statin
#Nicotine dependence
DVT prophylaxis hep gtt
Full code
Guarded Prognosis
Total Critical Care Time__50___ minutes. I was immediately available to the patient and staff. I personally examined, reviewed labs, diagnostic images/reports, interpretations, treatment plans, discussed patient care with other providers, and
patient's Sara (patient unable to make decisions for himself at this time), entered orders as appropriate and documented the medical record.
Anticipated Discharge: > 48 hours
Subjective/Interval History
-
Date of Service: June 26, 2024
spontaneous eye movements. Occasional spontaneous movement right foot noted. Remains intubated no acute distress. Sara present during evaluation.
Objective Data
-
Labs:
Laboratory Results
06/25/24 06/26/24 06/26/24
21:20 00:10 00:42
WBC 30.0 H 25.8 H
Hgb 7.7 L 7.1 L
Hct 22.8 L 21.1 L
Plt Count 330 310
APTT
HCO3 23.1
Sodium 133 L 134 L
Potassium 4.9 4.4
Chloride 102 104
Carbon Dioxide 25 24
BUN 55 H 56 H
Creatinine 1.4 H 1.4 H
Glucose 218 H 238 H
Calcium 8.5 8.1 L
Total Bilirubin 2.1 H
AST 47
ALT 41
Alkaline Phosphatase 204 H
06/26/24 06/26/24
04:51 12:00
WBC 25.6 H
Hgb 6.7 L*
Hct 20.6 L*
Plt Count 332
APTT 76.7 H
HCO3 27.4 Pending
Sodium 134 L
Potassium 4.3
Chloride 101
Carbon Dioxide 27
BUN 61 H
Creatinine 1.4 H
Glucose 157 H
Calcium 8.1 L
Total Bilirubin
AST
ALT
Alkaline Phosphatase
Vital Signs:
Vital Signs
Temp Pulse Resp BP Pulse Ox
97.4 F 72 18 122/60 100
06/26/24 06:00 06/26/24 06:00 06/26/24 06:00 06/25/24 21:36 06/26/24 06:00
I&O
06/24/24 06/25/24 06/26/24
06:59 06:59 06:59
Intake Total 710 / 710 2386.8 / 2399.6 859.2 / 859.2
Output Total 3075 / 3075 1132 / 1142 1515 / 1515
Balance -2365 / -2365 1254.8 / 1257.6 -655.8 / -655.8
[2024-06-26] MEDS: NOVOLOG FLEXPEN SC ×3 (07:14→17:36)
[2024-06-26 07:40] LABS: Glucose - Point of Care 157 mg/dl (70-99)
--- NOTE | 2024-06-26 08:00 | PTCARENOTE ---
Received patient from shift mgr. patient is intubated/not sedated, lethargic/drowsy. He does have eyes open intermittently. Sara present at bedside, patient has eyes open and was turning his head from side to side. At one point, patient
did reach with left hand towards tube, very weak. Patient remains on TTM pads, is rewarmed as of 06/25 1300.
He is on AC with #[id number]. AC 18/350/5/30% Ventilator does keep alarming loss of peep, notified respiratory therapist. Oral care completed, does have moderate amount of oral secretions. Patient is sinus rhythm- sinus linda on monitor. right radial
marla, correlating with cuff pressure, all connections secured, leveled at phlebostatic axis. Not on pressors. on heparin gtt.
Patient has Jevity 1.5 running at 20ml/hr through right [place] sump NGT. awaiting dietary input for further recommendations. Temp sensing Fuentes draining yellow urine, fuentes care completed. Skin as documented in focused shift assessment.
Vascular/Podiatry is addressing left foot dressing.
Will review orders, continuing to turn and reposition, ordered 1unit of PRBCs to be transfused this morning.
[2024-06-26 08:08] LABS: Iron 43 ug/dl (49-181)
[2024-06-26] MEDS: PACERONE 200 MG TUBE ×2 (08:11→19:55)
[2024-06-26] MEDS: LOW STRENGTH ASPIRIN 81 MG TUBE (08:11)
[2024-06-26] MEDS: BUSPAR 30 MG TUBE (08:11)
[2024-06-26] MEDS: PROTONIX IV 40 MG IV (08:12)
[2024-06-26] MEDS: REFRESH CELLUVISC GEL 1 DROPS OPHTH ×2 (08:12→19:54)
[2024-06-26] MEDS: NSS (PRESERVATIVE FREE) 10 ML IV (08:12)
[2024-06-26 08:17] LABS: Percent Saturation 24 % (20-50); Total Iron Binding Capacity 177 ug/dl (261-462)
[2024-06-26 08:43] LABS: Glucose - Point of Care 169 mg/dl (70-99)
[2024-06-26] MEDS: LEVOPHED 250 IV (09:02)
[2024-06-26 09:11] LABS: Hematocrit 19.2 % (39.0-52.0); Hemoglobin 6.4 g/dL (13.0-18.0); Mean Corp Hgb Conc. 33.3 g/dL (33.0-37.0); Mean Corpuscular Hgb 28.2 pg (27.0-31.0); Mean Corpuscular Volume 84.6 fL (80.0-94.0); Mean Platelet Volume 10.3 fL (7.4-10.4); Platelet Count 315 10^3/uL (130-400); Red Blood Cell Count 2.27 10^6/uL (4.70-6.10); Red Cell Dist. Width 16.7 % (11.5-14.5); White Blood Cell Count 21.2 10^3/uL (4.8-10.8)
--- NOTE | 2024-06-26 09:14 | W.PN.CARDCBS ---
Today's Communication / Plan
-
Temperature is now warmth. Blood pressure remains low. Continue Levophed blood pressure support.
Remains on amiodarone via tube and heart rates are stable. No further episodes of significant ventricular arrhythmias.
Would restart Lasix 40 mg IV daily today. Creatinine overall stable at 1.4.
Eventually restart Coreg, Farxiga, and Entresto. Will wait till off pressors.
Continue supportive care continue to assess mental status.
If he recovers from this event will need ICD.
Impression / Plan
-
PCP: Dr. Sherwood
Cardiology: Dr. Ny, last seen 06/2022
Impression:
Intraoperative PEA/ventricular fibrillation arrest 06/24/2024
Admitted with confusion and acute HFrEF 06/18/24
Tiny nonhemorrhagic acute/subacute infarct in the right periventricular white matter/centrum semiovale region by MRI 06/19/2024
Recent admission to [facility] for acute HF and foot wound 06/06/24 until 06/12/24
Hypotension
Acute HFrEF
CM EF 15% by echo at [place] 06/07/24
h/o improved NICM EF 25% by echo 03/2018 and then improved to 40% by echo 06/2022
Nonobstructive CAD by cath 2017
Medication noncompliance
Newly diagnosed LV thrombus
1.5 x 1.2 cm LV apical clot on echo at [place] 06/07/24
Chronic warfarin managed by [facility]
started for LV clot 06/07/24
Supratherapeutic INR on admission
Hyponatremia
GHAZAL on CKD 3a
Elevated LFTs
Chews tobacco
Unwitnessed fall
Echo 05/30/2024: [facility] study, EF 15 to 20%, severe global hypokinesis and septal dyskinesis, small and organized thrombus in the LV apex measuring 1.5 x 1.2 cm, grade 3 diastolic dysfunction, at least mildly dilated RV with reduced
systolic function, mild to moderate MR, mild pericardial effusion seen posteriorly without evidence of tamponade
Echo 06/20/24 with IV echo contrast: LV ejection fraction severely reduced, 15-20% with global hypokinesis. Dilated, hypokinetic right ventricle. Biatrial dilatation. Mild MR. Mild to moderate TR. Estimated pulmonary artery systolic pressure
50-55 mmHg. Small pericardial effusion without evidence of hemodynamic compromise. No LV apical thrombus
Plan:
Admitted with change in mental status and found to have small nonhemorrhagic right hemispheric CVA, recently hospitalized with LV thrombus and acute and chronic HFrEF with left lower extremity wound infection. Also with choledocholithiasis, status
post ERCP and sphincterotomy with stone extraction June 21. Underwent debridement of left foot wound 317, received treatment for acute HFrEF during hospital stay, went for right lower extremity percutaneous revascularization procedure today and
upon induction of anesthesia had pulseless electrical activity degenerating into VF requiring ACLS and ultimately return of spontaneous circulation. Now intubated on pressors in ICU.
PEA/ventricular fibrillation arrest: Rhythm is stable. He is back on amiodarone via tube. No significant ventricular tachycardia. His temperature is now warmed. Continue to follow neurologic exam. Ultimately, if neurologic outcome is good, he
will need secondary prevention ICD prior to discharge.
Acute on chronic HFrEF: Blood pressure is stable now on low-dose Levophed. I suspect he is mildly volume overloaded. Will start Lasix 40 mg IV daily. Creatinine overall stable at 1.4. Eventually add back carvedilol, Entresto and Farxiga. Will
wait till off pressors.
PAD, foot wound, methicillin sensitive Staph aureus bacteremia: Continue meropenem
Recent right periventricular nonhemorrhagic CVA: Unclear whether cardioembolic, major issue now is concerns regarding anoxic encephalopathy, neuro is following
LV thrombus: Not seen on most recent echo,
Choledocholithiasis: ERCP June 21 with sphincterotomy and stone extraction
GHAZAL: Creatinine relatively stable at 1.4 despite PEA/VF arrest, will continue to follow
DM:
Toxic metabolic encephalopathy on admission/possible CVA as contributor, at this point anoxic encephalopathy is the major contributor. Continue to evaluate neurologic exam
Critical care time 35 minutes
HPI: Patient came to [facility] from home yesterday with confusion and garbled speech and was admitted for acute HF and cardiology has been consulted. Patient is a poor historian and gave me permission to call his daughter. Also reviewed 67 pages of
records from recent [place] admission. Patient had NICM diagnosed in 2018 and with GDMT his EF improved to 40% by last echo at in 06/2022. Patient then stopped coming to cardiology appts at , but reportedly did not start following elsewhere.
Patient then retired and stopped taking his medications on a regular schedule despite reminders from family. Patient started with LE wounds 02/2024 and following with wound care center and seemed to be improving. Patient then started with a cough
and saw his PCP 05/02/24 and lungs were clear and he was started on promethazine and albuterol. Patient was then admitted to [place] with SOB 06/06/24 and during that admission was found to have EF down to 15% and he had a new LV clot and was started
on warfarin. Patient was also d/c'd to home on Coreg, Entresto and spironolactone which are meds he had been on when he was last seen in the cardiology office in 2022. Patient was diuresed with Lasix IV and d/c'd to home on Lasix 40 mg PO BID.
Patient's daughter reports that patient was not taking meds at home and when VN came to see him he had garbled speech and was sent to the ER.
Progress Note - Baby Nurse
Subjective
Date of Service: June 26, 2024
He is now warmed. On low-dose Levophed for blood pressure support. Back on Amio via tube
Objective
Labs:
Labs
Hgb 6.4 g/dL (13.0-18.0) L* 06/26/24 08:48
Hct 19.2 % (39.0-52.0) L* 06/26/24 08:48
Plt Count 315 10^3/uL (130-400) 06/26/24 08:48
PT 19.7 Sec (11.4-14.6) H 06/24/24 11:02
INR 1.64 06/24/24 11:02
APTT 76.7 Sec (23.4-35.0) H 06/26/24 04:51
Sodium 134 mmol/L (135-145) L 06/26/24 04:51
Potassium 4.3 mmol/L (3.5-5.1) 06/26/24 04:51
BUN 61 mg/dl (9-20) H 06/26/24 04:51
Creatinine 1.4 mg/dL (0.7-1.3) H 06/26/24 04:51
Glucose 157 mg/dl (70-99) H 06/26/24 04:51
Troponins
06/24/24 06/24/24 06/24/24
08:45 11:02 11:02
Troponin I 0.026 0.080 H* D Cancelled
06/24/24 06/24/24 06/25/24
16:52 22:02 05:48
Troponin I 0.150 H* D 0.141 H* 0.101 H* D
Vital Signs and I&O:
Vital Signs
Temp Pulse Resp BP Pulse Ox
98.1 F 59 18 107/44 100
06/26/24 09:12 06/26/24 09:12 06/26/24 09:12 06/26/24 09:12 06/26/24 08:34
Vital Signs
Temp Pulse Resp BP Pulse Ox
98.1 F 59 18 107/44 100
06/26/24 09:12 06/26/24 09:12 06/26/24 09:12 06/26/24 09:12 06/26/24 08:34
Intake & Output
06/24/24 06/25/24 06/26/24 06/27/24
06:59 06:59 06:59 06:59
Intake Total 710 / 710 2386.8 / 2399.6 859.2 / 875.2 67 / 67
Output Total 3075 / 3075 1132 / 1142 1515 / 1555 120 / 120
Balance -2365 / -2365 1254.8 / 1257.6 -655.8 / -679.8 -53 / -53
Physical Exam
Physical Exam
GEN: No distress, intubated/sedated
HEENT: supple, anicteric, mmm, ET tube
LUNGS: CTA, no wheezes/rales
CV: Reg, S1/S2, 1/6 syst LSB, no gallop
ABD: soft, BS+, NT/ND
EXT: No edema
NEURO: sedated
SKIN: No rash
--- NOTE | 2024-06-26 09:14 | PN.DE.MGMTRT ---
Insulin Management
- -
06/26/2024: Diabetes Management Consult Follow up
63 year old male who presented to ER on 06/18/24 with report of AMS changes, of staring, garbled speech, confusion, and balance difficulty lasting an unclear amount of time. Of note, pt was recently admitted at [facility] for LV thrombus
and HFrEF (on Coumadin).
PMH: NICM, mild MR, HTN, Hypercholesterolemia Renal insufficiency, RLE Cellulitis, nicotine use and IDDM. Prior to admission was taking Levemir 20 units BID, Humalog 5 units AC and Farxiga 10mg daily prior to admission. A1C 10.8%.
MRI brain on 06/19/25 demonstrated a tiny nonhemorrhagic acute/subacute infarct in the right periventricular white matter/centrum semiovale region.
His hospital admission has also included an ERCP on 06/21/24. Pt was also noted for a chronic nonhealing left foot wound as well as a more acute gangrenous left hallux and associated foot infection. He underwent a partial first ray resection on 06/23.
OR 06/24/24 for RLE percutaneous revascularization. Upon anesthesia induction patient PEA/Vfib arrested and underwent ACLS until ROSC was achieved and procedure was aborted.
Patient remains critically ill intubated and sedated, unable able to interview, no family at bedside. Information obtained from chart review
Cr 1.4, eGFR 55.78 today.
Currently requiring 1.5-18 units of insulin/hr. Tube feeds at @ 20 per hour.
Will cont current management plan and reassess for need for subcutaneous insulin Q 6 hours or readiness to transition off the drip if medically stable.
Discussed with nurse.
Will follow.
Diabetes History
- -
Type of Diabetes: 2 requiring insulin
Pre-Admission Diabetes Regimen
06/25/24 06/25/24 06/25/24
12:12 17:00 17:20
Creatinine 1.4 H Cancelled 1.4 H
06/25/24 06/26/24 06/26/24
21:20 00:42 04:51
Creatinine 1.4 H 1.4 H 1.4 H
Lab Results
Hemoglobin A1c 10.8 % (4.0-5.6) H 06/19/24 05:43
Insulin Pump Settings
IP Diabetes Regimen
06/25/24 06/25/24 06/25/24
09:29 11:21 12:12
Glucose 110 H
POC Glucose 110 H 107 H
06/25/24 06/25/24 06/25/24
14:27 16:14 17:00
Glucose Cancelled
POC Glucose 117 H 121 H
06/25/24 06/25/24 06/25/24
17:20 18:08 20:06
Glucose 143 H
POC Glucose 162 H 192 H
06/25/24 06/25/24 06/25/24
21:18 21:20 21:51
Glucose 218 H
POC Glucose 236 H 264 H
06/25/24 06/26/24 06/26/24
23:05 00:07 00:42
Glucose 238 H
POC Glucose 253 H 220 H
06/26/24 06/26/24 06/26/24
00:45 04:00 04:51
Glucose 157 H
POC Glucose 259 H 174 H
06/26/24 06/26/24 06/26/24
04:56 06:03 07:29
Glucose
POC Glucose 167 H 131 H 157 H
06/26/24
08:32
Glucose
POC Glucose 169 H
Patient Education
[2024-06-26 09:27] LABS: ALT (SGPT) 33 U/L (0-50); AST (SGOT) 39 U/L (17-59); Albumin 1.8 g/dl (3.5-5.0); Alkaline Phosphatase 184 U/L (38-126); Blood Urea Nitrogen 59 mg/dl (9-20); Calcium 7.9 mg/dl (8.4-10.2); Carbon Dioxide 24 mmol/L (22-30); Chloride 101 mmol/L (98-107); Estimated Creatinine Clearance 65 ml/min; Glucose 153 mg/dl (70-99); Magnesium 2.5 mg/dl (1.6-2.3); Phosphorus 4.2 mg/dl (2.5-4.5); Potassium 4.5 mmol/L (3.5-5.1); Sodium 133 mmol/L (135-145); Total Bilirubin 1.6 mg/dl (0.2-1.3); Total Protein 4.6 g/dl (6.3-8.2); eGFR 55.78
--- NOTE | 2024-06-26 09:29 | PTCARENOTE ---
May stop serial labs now, daily labs as ordered per Dr. Wharton.
--- NOTE | 2024-06-26 09:30 | W.PN.ID1 ---
Date of Service
Date of Service: June 26, 2024
Today's Communication
- continue meropenem day 4
- will require a course of home IV antibiotics with cefazolin, duration pending course
- patient remains critically ill with interval improvement
Assessment / Plan
MSSA Bacteremia
Possible endocarditis
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
PEA/v fib arrest 06/24
CVA
Dm2 uncontrolled
- 06/21 and 06/22 blood cultures remain no growth to date
- TTE without vegetations, may eventually consider empiric treatment for endocarditis vs mikey if stabilizing
- reached out to cardiology via tiger text to discuss timing of AICD placement, MIKEY
- continue meropenem day 4
- will require a course of home IV antibiotics with cefazolin, duration pending course
- patient remains critically ill with interval improvement
Choledocholithiasis s/p ERCP
- meropenem as above
Chief Complaint
-: Other (wet gangrene, mssa bacteremia, possible endocarditis)
Subjective / Review of Systems
afebrile post rewarming
now on minimal pressors
some responses - mouthing words and reaching L hand towards ett
Vital Signs / Physical Exam
Vital Signs
Vital Signs
Temp Pulse Resp BP Pulse Ox
98.1 F 59 18 107/44 100
06/26/24 09:12 06/26/24 09:12 06/26/24 09:12 06/26/24 09:12 06/26/24 08:34
Physical Exam
Constitutional: Acutely Ill and Chronically Ill
Cardiovascular: Regular Rate and S1/S2; Negative Murmur or Rub
Pulmonary: Clear and Symmetric; Negative Wheezes or Rales
Gastrointestinal: Soft, Non Tender, Non Distended and Normal Bowel Sounds
Skin: Warm and Dry; Negative Rash or Jaundice
Wound: Other (dressing clean, dry, intact)
Neurological: Other (L hand with decerebrate posturing )
Objective Data
Lab Data
Lab Results
06/26/24 08:48
PT 19.7 Sec (11.4-14.6) H 06/24/24 11:02
INR 1.64 06/24/24 11:02
APTT 76.7 Sec (23.4-35.0) H 06/26/24 04:51
Estimated Creat Clear 65 ml/min 06/26/24 08:48
Lactic Acid 1.0 mmol/L (0.7-2.0) 06/26/24 08:48
Total Bilirubin 1.6 mg/dl (0.2-1.3) H 06/26/24 08:48
AST 39 U/L (17-59) 06/26/24 08:48
ALT 33 U/L (0-50) 06/26/24 08:48
Alkaline Phosphatase 184 U/L (38-126) H 06/26/24 08:48
Most recent labs reviewed.
Micro Results:
06/22/24 13:23 Blood Culture - Preliminary
Blood/Venous No Growth in 72 hours- Final report to follow
06/21/24 09:33 Blood Culture - Preliminary
Blood/Venous No Growth in 4 days- Final report to follow
06/22/24 14:36 Wound Culture - Final
Abscess S aureus-Methicillin Sensitive
Gram Stain - Final
06/20/24 00:42 Blood Culture - Final
Blood/Venous S aureus-Methicillin Sensitive
Gram Stain - Final
06/20/24 01:59 Blood Culture - Final
Blood/Venous S aureus-Methicillin Sensitive
Gram Stain - Final
06/18/24 16:51 Urine Culture - Final
Urine NO GROWTH
06/18/24 16:11 Influenza Types A & B (HUBER) - Final
Nasal Swab Negative for Influenza A & B, NAAT
Negative results must be combined with clinical observations
and patient history.
Nucleic Acid Amplification test (NAAT)performed on the
[employer] platform.
[2024-06-26 09:45] LABS: Glucose - Point of Care 223 mg/dl (70-99)
[2024-06-26 10:39] LABS: Glucose - Point of Care 128 mg/dl (70-99)
--- NOTE | 2024-06-26 12:00 | PTCARENOTE ---
Spoke to diabetic [employer] and reached out to dietary. Patient is on Jevity 1.5 and awaiting dietary input for further orders. Patient had episodes overnight of hyperglycemia. There is an order for novolog AC, reached out to [employer] as patient is on tube
feeds but not as ordered per RD. Also is at reduced rate, etc. Holding novolog until RD places updated tube feed orders. continuing supportive care, turn and repositioning.
[2024-06-26] MEDS: SENNA SYRUP 8.8 MG TUBE ×2 (12:01→19:55)
[2024-06-26] MEDS: LASIX 40 MG IV (12:01)
[2024-06-26] MEDS: MIRALAX 17 GRAMS TUBE (12:01)
--- NOTE | 2024-06-26 12:10 | W.PN.INTV ---
Today's Communication / Plan
Recommendations
-DC BuSpar
-Initiate tube feeding
-Monitor H&H posttransfusion
-Chest x-ray and ABG in a.m.
-Had bowel regimen
-Change ventilator mode to SIMV with pressure support, rate lowered to 14
-Check LFTS and PT/INR in AM
Assessment
-
63 old gentleman with known history of LV EF 10 to 15% and pulmonary hypertension was scheduled for arteriogram in the OR. Post induction with propofol, patient developed progressive hypotension followed by a PEA arrest and CPR was started.
Subsequently patient developed ventricular tachycardia and at some point ventricular fibrillation requiring ongoing CPR and defibrillation. Eventually ROSC was achieved and patient was transferred to ICU, intubated and on mechanical ventilation.
Truck Driving Instructor consult was requested for further management. Prior to this event, patient has been in the hospital for a gangrenous right foot status post ray amputation and has been on meropenem for MSSA bacteremia with sepsis. Stays also
complicated by choledocholithiasis status post ERCP and stone retrieval.
last 24 hrs:
-Patient has been more marginally more awake today compared to 06/25
-Currently back on Levophed at 2, insulin drip, heparin infusion
-TTM, completed
-Amio drip transition to oral at a lower dose, due to transient bradycardia
-Blood gas, 7.49, 36, 102, on SIMV with pressure support. Vent settings pressure support 12 x 5, FiO2 30%, mandated SIMV rate change from 18-14
-Fluid balance, -600 mlL
-Hemoglobin drop noted, patient getting 2 units of packed RBCs
-Overnight erratic breathing pattern noted, ?Efra-Marion
-CXR shows improving infiltrates
#1. Cardiac arrest with PEA followed by Ventricular Tachycardia followed by Polymorphic VT/V Fib
-Hypotension and PEA arrest post induction with Propofol. S/p 3 rounds of ACLS and 4 defibrillations followed by ROSC
-Switched Amiodarone to PO 200 mg bid
-Target K >4 and Mg >2
-Telemetry
-ECHO reviewed, EF 10-15% with Estimated PAP 62 mm
-Stat CT head negative for acute changes
-Targeted temperature management with goal to keep normothermia and avoid fever, completed
-Serial exam
-Monitor electrolytes closely
-Target MAP 65 now
-Initiate Tube feeding today as do not anticipate extubation over next 24 hrs
#2. Shock, cardiogenic and also vasoplegia post cardiac arrest
-Known h/o LV failure and Severe Pulmonary HTN
-Off Vasopressin. Levo PRN
-Continue Meropenem
#3. Severe non-ischemic cardiomyopathy with EF 10-15% with Pulmonary HTN (62mm) with LV Thrombus
-Cardiology service on case
-Vasopressors as needed
-Monitor I/O closely, -700 ml
-Continue Heparin drip
#4. RLL Aspiration pneumonia vs Pneumonitis
-Continue Meropenem
-CXR improving
#5. 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
-ID service on case. Bacteremia has since resolved
-Podiatry service and Vascular service on case
-Ongoing oozing noted
-Serial H/H, transfusing 2 units today
#6. Concern for ischemic/Anoxic encephalopathy
-Patient has intact Gag reflex, corneal reflex. Pupil small with minimal response to light. More awake with eyes open, did not make eye contact however. no other meaningful communication
-Stay off sedation, d/c Buspirone
-Neurology service on case
#7. DM
-Insulin infusion
GI Prophylaxis: IV PPI
Critical Care time 40 mins -- The patient is admitted for acute critical illness for the treatment of vital organ failure and/or prevention of further life-threatening conditions. Total care includes time spent in review of history, physical exam,
medications, hemodynamic/ventilator parameters, laboratory data, imaging and discussion with house staff, pharmacy, respiratory therapy, computer compositor, and nursing.
Data:
ECHO 06/2024: Normal left ventricular chamber size. Severely reduced left ventricular
systolic function. Mild concentric left ventricular hypertrophy. Severe global
hypokinesis with possible inferior and apical akinesis. Left ventricular
ejection fraction is 10-15 % by visual estimate.
Mitral valve opens normally. Thickened mitral valve leaflets. Mitral annular
calcification. Mild mitral regurgitation.
Moderately dilated left atrium.
Tricuspid valve opens normally. Moderate tricuspid regurgitation. Estimated
pulmonary artery pressure of 62 mmHg assuming a right atrial pressure of 3
mmHg.
Moderately dilated right atrium.
Right ventricle appears mildly dilated and hypokinetic.
Small pericardial effusion without evidence of hemodynamic compromise.
Since echocardiogram 06/20/2024, there is no significant change.
CXR 06/24/2024
Endotracheal tube with tip in trachea above the salazar. No pneumothorax.
Patchy right lung opacity which could represent pneumonia/pneumonitis.
Nasogastric tube with tip in proximal stomach.
Subjective Dataa
Subjective Data
Date of Service:
Date of Service: June 26, 2024
Subjective:
Intubated, mechanically ventilated
Review of Systems
General: Unobtainable - Pat Unresp
Objective Data
Data Reviewed
Vital Signs / I&O / Oxygen:
Vital Signs
Temp Pulse Resp BP Pulse Ox
97.7 F 67 14 147/59 99
06/26/24 11:53 06/26/24 11:53 06/26/24 11:53 06/26/24 11:53 06/26/24 11:56
Intake and Output
06/25/24 06/26/24 06/27/24
06:59 06:59 06:59
Intake Total 2386.8 / 2399.6 859.2 / 875.2 364.0 / 364.0
Output Total 1132 / 1142 1515 / 1555 275 / 275
Balance 1254.8 / 1257.6 -655.8 / -679.8 89.0 / 89.0
SaO2 [A/C] 100
SaO2 99
Nasal Cannula flow liters per 4
minute
Physical Exam
General: Comfortable
HEENT: Normocephalic
Cardiovascular: Regular Rhythm
Respiratory: Clear
GI: Soft and Non Distended
Neurology: Awake and Other (No meaningful communication)
Skin: Warm
Labs/Micro/Reports
Lab Data
06/26/24 08:48
Laboratory Results
06/25/24 06/25/24 06/25/24
12:00 12:12 16:15
APTT 88.0 H
pH Cancelled 7.53 H
pCO2 Cancelled 32 L
pO2 Cancelled 172 H
HCO3 Cancelled 26.7
O2 Delivery Level Cancelled
06/25/24 06/26/24 06/26/24
17:20 00:10 04:51
APTT 90.2 H 76.7 H
pH 7.44 7.49 H
pCO2 34 L 36
pO2 142 H 162 H
HCO3 23.1 27.4
O2 Delivery Level 100
Microbiology
06/21/24 09:33 Blood/Venous Blood Culture - Final
No Growth - Final Report
06/22/24 13:23 Blood/Venous Blood Culture - Preliminary
No Growth in 72 hours- Final report to follow
06/22/24 14:36 Abscess Wound Culture - Final
S aureus-Methicillin Sensitive
06/22/24 14:36 Abscess Gram Stain - Final
06/20/24 00:42 Blood/Venous Blood Culture - Final
S aureus-Methicillin Sensitive
06/20/24 00:42 Blood/Venous Gram Stain - Final
06/20/24 01:59 Blood/Venous Blood Culture - Final
S aureus-Methicillin Sensitive
06/20/24 01:59 Blood/Venous Gram Stain - Final
[2024-06-26 12:36] LABS: Glucose - Point of Care 133 mg/dl (70-99)
--- NOTE | 2024-06-26 13:44 | EEG.RPT ---
Electroencephalogram Report
Recording
Date of EE06/26/24
Type of EEG: Routine
Length of EEG recordin minutes
Done with Video Recording: Yes
Patient Status: Inpatient
Recording Conditions: Awake and Drowsy
Hyperventilation Performed: No
Photic Stimulation Performed: Yes
Report
LESS THAN 1 HOUR EEG REPORT
LESS THAN 1 HOUR EEG INTERPRETATION:
Moderately-severely abnormal EEG for age due to diffuse bihemispheric slowing
CLINICAL CORRELATION:
This study was suggestive of diffuse cortical dysfunction without focal abnormality. No seizures were recorded.
Compared with the prior day's testing, there was increased cortical activity with increased organization.
Clinical correlation is advised.
METHODS:
A 21 channel digitized electroencephalogram (EEG) was performed at the bedside. The 10/20 international system of electrode placement was used with ECG and lateral/vertical eye movements recorded. Persyst QEEG monitoring was performed.
QUALITY OF STUDY:
Good
ELECTROENCEPHALOGRAPHER IMPRESSION(S):
Background
There was a low amplitude unorganized anterior-posterior voltage gradient of delta frequency
There were no significant asymmetries of background activity noted.
Sleep
Drowsiness present
Photic Stimulation
Failed to activate the record.
ECG
Normal sinus rhythm
[2024-06-26 13:47] LABS: Hematocrit 21.8 % (39.0-52.0); Hemoglobin 7.4 g/dL (13.0-18.0)
[2024-06-26 13:48] LABS: B.E. 5.5 mmol/L; HCO3 28.7 mmol/L (21-28); PCO2 36 mmHg (35-48); PO2 153 mmHg (83-108); pH 7.51 (7.35-7.45)
--- NOTE | 2024-06-26 13:50 | W.PN.NEURO.1 ---
Today's Communication / Plan
-
Consider repeated EEG to determine if the patient is having seizure activity preventing full return of cognitive function
Consider repeated neuroimaging if the patient has stalled improvement of cognitive return
Continue supportive care
Neuro Assessment/Plan
Assessment
Patient previously evaluated for underlying cognitive dysfunction, experiencing severe anoxic injury 1 day ago
Prognosis is mildly favorable and that the patient's initial CT of the head did not demonstrate cerebral edema or anoxic injury. The prognosis is also made more favorable by the patient having spontaneous eye opening. Best prognostic possibility
will be 72 hours after anoxic injury
Plan
Consider repeated EEG to determine if the patient is having seizure activity preventing full return of cognitive function
Consider repeated neuroimaging if the patient has stalled improvement of cognitive return
Continue supportive care
Will follow
Subjective/Objective
Subjective Data
Date of Service: June 26, 2024
Patient unable provide his own medical history
Objective Data
Vital Signs
Temp Pulse Resp BP Pulse Ox
36.5 C 67 14 147/59 99
06/26/24 13:00 06/26/24 11:53 06/26/24 11:53 06/26/24 11:53 06/26/24 12:00
Lab Results
06/26/24 13:33
06/26/24 08:48
PT 19.7 Sec (11.4-14.6) H 06/24/24 11:02
INR 1.64 06/24/24 11:02
APTT 76.7 Sec (23.4-35.0) H 06/26/24 04:51
Sodium 133 mmol/L (135-145) L 06/26/24 08:48
Potassium 4.5 mmol/L (3.5-5.1) 06/26/24 08:48
BUN 59 mg/dl (9-20) H 06/26/24 08:48
Glucose 153 mg/dl (70-99) H 06/26/24 08:48
Calcium 7.9 mg/dl (8.4-10.2) L 06/26/24 08:48
Phosphorus 4.2 mg/dl (2.5-4.5) 06/26/24 08:48
Gws-M-Mjwraemvdmi Pept 00181 pg/ml 06/24/24 11:02
Vitamin B12 884 pg/ml (239-931) 06/18/24 16:12
Patient Allergies
No Known Allergies Allergy (Verified 06/18/24 16:01)
Review of Systems
-
Unable to obtain full review of systems at this time due to: Patient Intubation and Aphasia
History Source: Patient
All other systems: Reviewed and negative
Physical Exam
-
General: No Apparent Distress, Intubated and Appears Stated Age
Eyes: Able to visualize OU, Round OU and [place] Conjunctivae
HEENT: Anicteric and Moist Mucous Membranes
Neck: Full Range of Motion
Respiratory: No Dyspnea
Cardiac: No JVD
GI: Non-distended
Skin: Unremarkable
Extremities: No Clubbing, No Cyanosis and No Edema
Psych: Unable to Assess
Extended Neurological Exam
Mood & Affect: Unable to Assess
Attention Span & Concentration: Awake, Unresponsive to Verbal Stimuli, Unresponsive to Physical Stimuli and Other (Did maintain eyes open after passive eye opening bilaterally); Negative Alert or Interactive
Memory: Unable to Assess
Tremor: Hand Tremor Absent and Head Tremor Absent
Involuntary Movement: None
Speech: Unable to Assess
Cranial Nerve II: Left Eye: Pupillary Reactivity Unremarkable, Pupillary Size Unremarkable and Other (Blink to threat)
Cranial Nerve II: Right Eye: Pupillary Reactivity Unremarkable, Pupillary Size Unremarkable and Other (Blink to threat)
Cranial Nerves III, IV, : Extraocular Movement: Absent Doll's Eyes and Other (Spontaneously opened eyes without tracking)
Cranial Nerve V: Facial Sensation: Unable to Assess
Cranial Nerve VII: Facial Symmetry: Normal Facial Symmetry
Cranial Nerves IX, X: Palate Movement: Unable to Assess
Cranial Nerve XI: Shoulder Shrug: Unable to Assess
Cranial Nerve XII: Tongue Protusion: Unable to Assess
Muscle Strength, Overall: Negative Spontaneously Moves
Muscle Bulk & Tone: Bulk Unremarkable and Tone Unremarkable
Pronator Drift: Unable to Assess
Cold Sensation: Unable to Assess
Vibration Sensation: Unable to Assess
Touch Sensation: Negative Withdrawal to Pain
Coordination: Unable to Assess
Gait & Station: Unable to Assess
Past History
Past History
ED Past Medical History: HTN, Hypercholesterolemia, IDDM, Other (Cellulitis, anoxic encephalopathy _2024) and Other (Nonischemic cardiomyopathy, mild MR)
ED Past Surgical History: Orthopedic
Social History
Tobacco: Former smoker
Alcohol: Occasional
Personal:
Living: with family
Employment: Employed
Family History
Family History: Other (Coronary disease. Sister with brain cancer. Brother with prostate cancer and COPD)
Medications
-
Medications:
Generic Name Dose Route Start Last Admin
Trade Name Freq PRN Reason Stop Dose Admin
Acetaminophen 650 mg 06/18/24 22:56 06/23/24 16:07
Acetaminophen 325 Mg Tablet PO 07/16/24 22:55 650 mg
Q4HPRN PRN Administration
mild pain/OROPEZA/temp> 100.4F
Acetaminophen 650 mg 06/24/24 09:43
Acetaminophen 650 Mg Rectal Suppository RECTAL 06/28/24 09:42
Q6HPRN PRN
if cannot be given via tube
Amiodarone HCl 200 mg 06/25/24 20:00 06/26/24 08:11
Amiodarone 200 Mg Tablet TUBE 07/23/24 19:59 200 mg
BID KARISSA Administration
Aspirin 81 mg 06/25/24 12:00 06/26/24 08:11
Aspirin 81 Mg Chewable Tablet TUBE 07/23/24 11:59 81 mg
DAILY KARISSA Administration
Carboxymethylcellulose Sodium 1 drops 06/24/24 20:00 06/26/24 08:12
Carboxymethylcellulose Ophth Gel (Celluvisc) Droperette OPHTH 07/22/24 19:59 1 drops
BID KARISSA Administration
Dextrose 12.5 grams 06/24/24 12:39
Dextrose 50% (0.5 Grams/Ml) 50 Ml Syringe IV 07/22/24 12:38
[id number] PRN
Blood Glucose < 70
Fentanyl Citrate 50 mcg 06/24/24 17:00
Fentanyl (50 Mcg/Ml) 100 Mcg/2 Ml Ampul IV 07/08/24 16:59
[id number] PRN
see protocol
Protocol
Furosemide 40 mg 06/26/24 12:00 06/26/24 12:01
Furosemide 40 Mg (10 Mg/Ml) 4 Ml Vial IV 07/24/24 11:59 40 mg
DAILY KARISSA Administration
Heparin Sodium 25,000 units in 250 mls @ 0 mls/hr 06/22/24 09:15 06/25/24 23:41
Heparin 22743 Units/250 Ml IV 250 mls
PER PROTOCOL KARISSA Administration
Protocol
Per Protocol
Norepinephrine Bitartrate 4 mg in 250 mls @ 0 mls/hr 06/24/24 09:45 06/26/24 09:02
Levophed IV 250 mls
PER PROTOCOL KARISSA Administration
Protocol
Per Protocol
Insulin Human Regular 100 units in 100 mls @ 0 mls/hr 06/26/24 07:45
Novolin R Insulin Infusion IV
PER PROTOCOL KARISSA
Protocol
Per Protocol
Insulin Aspart 0 units 06/24/24 16:30 06/26/24 13:26
Insulin Aspart (100 Units/Ml) 3 Ml Flexpen SC 07/22/24 16:29 Not Given
AC KARISSA
Protocol
Meropenem 500 mg 06/23/24 14:00 06/26/24 13:38
Meropenem 500 Mg/10 Ml Vial IV 500 mg
Q6H KARISSA Administration
Pantoprazole Sodium 40 mg 06/25/24 08:00 06/26/24 08:12
Pantoprazole Sodium 40 Mg/10 Ml Vial IV 07/23/24 07:59 40 mg
DAILY KARISSA Administration
Polyethylene Glycol 17 grams 06/26/24 12:00 06/26/24 12:01
Polyethylene Glycol Powder 17 Grams Packet TUBE 07/24/24 11:59 17 grams
DAILY KARISSA Administration
Sennosides 8.8 mg 06/26/24 11:45 06/26/24 12:01
Sennosides (Senna Syrup) 8.8 Mg/5 Ml Unit Dose Cup TUBE 07/24/24 11:44 8.8 mg
BID KARISSA Administration
Sodium Chloride 0 flush 06/18/24 23:00 06/22/24 15:38
Sodium Chloride 0.9% (Flush) Syringe IV 07/16/24 22:59 1 flush
PER PROTOCOL KARISSA Administration
Sodium Chloride 10 ml 06/25/24 08:00 06/26/24 08:12
Sodium Chloride 0.9% (Preservative Free) 10 Ml Vial IV 07/23/24 07:59 10 ml
DAILY KARISSA Administration
Sterile Water 10 ml 06/23/24 14:00 06/26/24 13:39
Sterile Water For Injection 10 Ml Vial IV 07/21/24 13:59 10 ml
Q6H KARISSA Administration
--- NOTE | 2024-06-26 14:31 | CM ---
CM following re: discharge planning.
Discussed in Rounds, reviewed pt's chart, met with pt. Pt's spouse and 2 daughters at bedside. Both pt's spouse and two daughters participated in Rounds meeting. Pt is s/p Cardiac arrest with PEA followed by Ventricular Tachycardia followed by
Polymorphic VT/V Fib, remains intubated, continue supportive care.
D/C plan: uncertain at this time and will depend on pt's progress.
CM will follow with discharge plan updates as hospitalization progresses
[2024-06-26 14:35] LABS: Glucose - Point of Care 129 mg/dl (70-99)
--- NOTE | 2024-06-26 16:07 | PTCARENOTE ---
"Patient has had more sustained episodes of wakefulness. was able to give two thumbs up when asked, is now nodding yes and no appropriately. plan to wean and hopefully extubate tomorrow morning. will place bilateral wrist restraints. asked "Jude"Akiko if he wanted to wean patient today, will wait till tomorrow. repeat labs ordered in the AM."
[2024-06-26 16:32] LABS: Glucose - Point of Care 115 mg/dl (70-99)
[2024-06-26] MEDS: OFIRMEV 100 IV (18:42)
[2024-06-26 18:49] LABS: Glucose - Point of Care 115 mg/dl (70-99)
[2024-06-26 19:43] LABS: Glucose - Point of Care 139 mg/dl (70-99)
--- NOTE | 2024-06-26 20:00 | PTCARENOTE ---
rec`d pt at 1900. intubated but awake and alert. nodding head appropriately. able to squeeze hands and give thumbs up. equal pupils 4mm. family at bedside. assessment as documented. glycemic protocol continued. SR on monitor. +pulses. no edema. #8
ett @25. thick paulino oral secretions. TF through [place]. fuentes draining yellow urine. restraints. anastacia wrap around left foot. heparin gtt continued. rt radial a line. rt femoral triple luman. TTM pads still on pt. safe environment maintained. call dillard
in reach.
[2024-06-26] MEDS: HEPARIN 25000 UNITS/250 ML IV (20:02)
[2024-06-26 20:28] LABS: Hematocrit 22.2 % (39.0-52.0); Hemoglobin 7.5 g/dL (13.0-18.0)
[2024-06-26] MEDS: SUBLIMAZE 50 MCG IV ×2 (21:00→22:39)
[2024-06-26 21:11] LABS: Glucose - Point of Care 212 mg/dl (70-99)
[2024-06-26 22:21] LABS: Glucose - Point of Care 229 mg/dl (70-99)
[2024-06-26 23:17] LABS: Glucose - Point of Care 206 mg/dl (70-99)
[2024-06-26] MEDS: NOVOLIN R INSULIN INFUSION 100 IV (23:46)
[2024-06-27] VITALS (54 sets, daily range): BP systolic 104–193; BP diastolic 30–131; BMI 27.9
[2024-06-27 00:01] LABS: Glucose - Point of Care 246 mg/dl (70-99)
[2024-06-27 01:17] LABS: Glucose - Point of Care 249 mg/dl (70-99)
--- NOTE | 2024-06-27 02:00 | PTCARENOTE ---
pt reassessed. no changes in pt assessment.
[2024-06-27 02:10] LABS: Glucose - Point of Care 258 mg/dl (70-99)
[2024-06-27] MEDS: MERREM 500 MG IV ×4 (03:04→20:12)
[2024-06-27] MEDS: STERILE WATER FOR INJECTION 10 ML IV ×4 (03:05→20:12)
[2024-06-27 03:17] LABS: Glucose - Point of Care 249 mg/dl (70-99)
[2024-06-27] MEDS: SUBLIMAZE 50 MCG IV (03:17)
[2024-06-27 03:45] LABS: Mean Corp Hgb Conc. 33.3 g/dL (33.0-37.0); Mean Corpuscular Hgb 28.5 pg (27.0-31.0); Mean Corpuscular Volume 85.4 fL (80.0-94.0); Mean Platelet Volume 9.7 fL (7.4-10.4); Platelet Count 328 10^3/uL (130-400); Red Blood Cell Count 2.46 10^6/uL (4.70-6.10); Red Cell Dist. Width 16.1 % (11.5-14.5); White Blood Cell Count 22.3 10^3/uL (4.8-10.8)
[2024-06-27 03:52] LABS: ALT (SGPT) 30 U/L (0-50); AST (SGOT) 36 U/L (17-59); Albumin 2.1 g/dl (3.5-5.0); Alkaline Phosphatase 187 U/L (38-126); Blood Urea Nitrogen 59 mg/dl (9-20); Calcium 7.9 mg/dl (8.4-10.2); Carbon Dioxide 27 mmol/L (22-30); Chloride 104 mmol/L (98-107); Direct Bilirubin 0.6 mg/dl (0.0-0.4); Estimated Creatinine Clearance 70 ml/min; Glucose 197 mg/dl (70-99); Magnesium 2.4 mg/dl (1.6-2.3); Potassium 4.1 mmol/L (3.5-5.1); Sodium 136 mmol/L (135-145); Total Bilirubin 1.8 mg/dl (0.2-1.3); Total Protein 4.8 g/dl (6.3-8.2); Triglycerides 112 mg/dl (10-149); eGFR > 60.00
[2024-06-27 03:54] LABS: INR 1.52; PT 18.8 Sec (11.4-14.6)
[2024-06-27 04:08] LABS: B.E. 2.9 mmol/L; PCO2 38 mmHg (35-48); PO2 144 mmHg (83-108); pH 7.46 (7.35-7.45)
[2024-06-27] MEDS: NOVOLIN R INSULIN INFUSION 100 IV (04:30)
[2024-06-27 04:38] LABS: Glucose - Point of Care 179 mg/dl (70-99)
[2024-06-27 05:42] LABS: Glucose - Point of Care 159 mg/dl (70-99)
--- NOTE | 2024-06-27 06:00 | PTCARENOTE ---
pt receiving PRBCs due to hgb 7.
[2024-06-27 06:44] LABS: Glucose - Point of Care 105 mg/dl (70-99)
--- NOTE | 2024-06-27 07:00 | PTCARENOTE ---
received patient from in store representative. patient is alert, following simple commands, slightly somnolent, received fentanyl bolus last night. He is intubated on P-SIMV, saturating 100% with number 8 ETT. plan to wean this morning. Patient remains in
sinus rhythm in the 70s-80s. right radial marla was discontinued last night. left radial cuff being used for blood pressure. SCD on right leg. Patient has finished unit of pRBCs, will recheck h&h at 1200. Patient continues glycemic protocol for
insulin gtt, hourly checks. he has right nare [place] sump with Jevity at 20ml/hr. Will advance to 55ml/hr for goal. Patient is on bowel regimen, has fuentes catheter, lasix to be given this morning. Skin as documented in shift assessment. remains
on TTM pads until 1300. fuentes care completed, oral care completed. Orders to be reviewed, will update family.
[2024-06-27] MEDS: LASIX 40 MG IV (07:15)
[2024-06-27] MEDS: REFRESH CELLUVISC GEL 1 DROPS OPHTH ×2 (07:16→20:12)
[2024-06-27] MEDS: PACERONE 200 MG TUBE ×2 (07:16→20:14)
[2024-06-27] MEDS: NSS (PRESERVATIVE FREE) 10 ML IV (07:16)
[2024-06-27] MEDS: LOW STRENGTH ASPIRIN 81 MG TUBE (07:16)
[2024-06-27] MEDS: SENNA SYRUP 8.8 MG TUBE ×2 (07:16→20:13)
[2024-06-27] MEDS: PROTONIX IV 40 MG IV (07:17)
[2024-06-27] MEDS: MIRALAX 17 GRAMS TUBE (07:17)
--- NOTE | 2024-06-27 07:21 | W.PN.HOSP.TC ---
Today's Communication/Plan
-
pressor support Vent mgmt SBT extubation tube feeds as per ICU
cont abx as per ID
hep gtt
Lasix Coreg as per Cardio
Monitor H&H and transfuse as necessary
Assessment / Plan
Assessment / Plan
Physical Exam
GEN: no acute distress
HEENT: EOMI, MMM
LUNGS: Intubated. CTA B/L without wheeze or rales
CV: Normal sinus rhythm no murmurs gallops
ABD: soft, BS+, NT, ND
EXT: left foot wound dressing clean dry intact
NEURO: Alert Awake responsive
Psych: calm
63M HFrEF CKD3 DM neuropathy HLD Nicotine dependence complicated hospital course with MSSA bacteremia, Left hallux gangrene, CVA suspect 2/2 cardiac emboli LV thrombus. Had partial amputation Lt Hallux Gangrene OR Podiatry 06/23. Patient was
planned for revascularization LLE 06/24 however developed PEA/Vfib arrest after anesthesia induction requiring ACLS. ROSC eventually achieved, patient was subsequently transferred to ICU intubated and requiring pressor support.
06/24/24 PEA/Vfib arrest following Anesthesia Induction
Acute Anoxic Encephalopathy vs Delirium
Underwent 3 rounds of ACLS and 4 defibrillations as per Cardio before ROSC was achieved
transferred to ICU intubated and on pressor support, poor neurologic recovery noted then, unresponsive off sedation
amiodarone gtt transitioned to PO via ngt
Cardio eval appreciated
Professional Caster Eval appreciated
Neuro Eval appreciated
weaned off pressor support
TTM completed
cont Vent mgmt tube feeds glycemic controlas per ICU
ECHO post-code appreciated EF 10-15% no significant change from prior ECHO 06/20/24
CT head appreciated no acute abn's
Mental status improving, more alert awake interactive
12.5 mg Seroquel HS
# MSSA bacteremia
-Blood cultures from 06/20 positive for MRSA
-Suspect secondary to left hallux wet gangrene, which itself is suspected due to embolic effect
-Antibiotics switched to meropenem, cont as per ID
-Repeat blood cultures from 06/21 and 06/22 with no growth to date
-Treatment of underlying wet gangrene, appreciate guidance from ID and podiatry
-strict NWB and elevation LLE as per Podiatry
#Left hallux gangrene:
-Suspect secondary to embolism as also caused stroke
-Purulent drainage positive for Staph aureus
-Status post partial amputation in the OR with podiatry today 06/23
-Planed for revascularization 06/24 aborted d/t PE/Vfib arrest as above
-Continue local wound care, empiric meropenem
-Continuing anticoagulation with IV heparin, warfarin held for surgical procedures
-Appreciate input from ID and podiatry
#reported hx LV thrombus
-Dx 2 weeks prior to arrival at [facility], suspect due to severely depressed LVEF
-Started on Coumadin anticoagulation 06/07/2024 for LV apical thrombus
-Coumadin on hold, on hep gtt for potential procedures
Progressive Anemia
- possible anemia of chronic disease vs blood loss from wound vs iatrogenic (less likely)
-monitor H&H and transfuse as necessary
-Iron panel appreciated anemia of chronic disease
#CVA
- Suspect secondary to cardiac emboli
� Acute/subacute infarct in the right periventricular white matter/centrum semiovale region
� Anticoagulated with IV heparin drip
� Neurology consult appreciated
� Carotids unremarkable
- hold PT OT d/t critical illness requiring ICU care as above
#Acute on chronic HFrEF
EF 15-20%
-Cardio eval appreciated Lasix and Coreg restarted following wean off pressors.
#Choledocholithiasis
-ERCP 06/21 with stone identified and removed and biliary sphincterotomy performed
-GI eval appreciated
#Transaminitis
� Secondary to choledocholithiasis, ERCP performed 06/21
� Resolving after ERCP
#GHAZAL
-probable cardiorenal
-Initial creat 1.6 since improved
-less likely underlying CKDIII
-monitor
#DM 2/diabetic neuropathy
-Uncontrolled, hemoglobin A1c 10.8% this admission
-DM SUSTAINABLE COMMUNITIES DESIGNER eval appreciated
-insulin gtt transitiioned to subq
-Gabapentin 600 mg daily on hold d/t Encephalopathy as above
#Mild Hyponatremia
monitor
#HLD
-Continue statin
#Nicotine dependence
DVT prophylaxis hep gtt
Full code
Guarded Prognosis
Total Critical Care Time__50___ minutes. I was immediately available to the patient and staff. I personally examined, reviewed labs, diagnostic images/reports, interpretations, treatment plans, discussed patient care with other providers, and
patient's Sara (patient unable to make decisions for himself at this time), entered orders as appropriate and documented the medical record.
Anticipated Discharge: > 48 hours
Subjective/Interval History
-
Date of Service: June 27, 2024
more alert interactive remains intubated at time of evaluation.
Objective Data
-
Labs:
Laboratory Results
06/26/24 06/27/24 06/27/24
20:15 03:27 03:57
WBC 22.3 H
Hgb 7.5 L 7.0 L
Hct 22.2 L 21.0 L
Plt Count 328
PT 18.8 H
INR 1.52
APTT
HCO3 27.0
Sodium 136
Potassium 4.1
Chloride 104
Carbon Dioxide 27
BUN 59 H
Creatinine 1.3
Glucose 197 H
Calcium 7.9 L
Total Bilirubin 1.8 H
AST 36
ALT 30
Alkaline Phosphatase 187 H
06/27/24
07:15
WBC
Hgb
Hct
Plt Count
PT
INR
APTT Pending
HCO3
Sodium
Potassium
Chloride
Carbon Dioxide
BUN
Creatinine
Glucose
Calcium
Total Bilirubin
AST
ALT
Alkaline Phosphatase
Vital Signs:
Vital Signs
Temp Pulse Resp BP Pulse Ox
98.1 F 77 12 139/71 100
06/27/24 07:00 06/27/24 06:57 06/27/24 06:57 06/27/24 06:57 06/27/24 06:00
I&O
06/26/24 06/27/24 06/28/24
06:59 06:59 06:59
Intake Total 859.2 / 895.2 2168.5 / 2204.5 36 / 36
Output Total 1515 / 1555 2375 / 2475 100 / 100
Balance -655.8 / -659.8 -206.5 / -270.5 -64 / -64
--- NOTE | 2024-06-27 07:39 | W.PN.NEURO.1 ---
Today's Communication / Plan
-
Continue supportive care
Neuro Assessment/Plan
Assessment
Patient previously evaluated for underlying cognitive dysfunction, experiencing severe anoxic injury 1 day ago
Prognosis is favorable and that the patient's initial CT of the head did not demonstrate cerebral edema or anoxic injury. The prognosis is also made more favorable by the patient having daily improved cognitive function
Plan
Continue supportive care
Will follow as needed
Subjective/Objective
Subjective Data
Date of Service: June 27, 2024
Patient unable to provide his own medical history
Objective Data
Vital Signs
Temp Pulse Resp BP Pulse Ox
36.7 C 70 12 141/71 100
06/27/24 07:00 06/27/24 07:16 06/27/24 06:57 06/27/24 07:16 06/27/24 06:00
Lab Results
06/27/24 03:27
06/27/24 03:27
PT 18.8 Sec (11.4-14.6) H 06/27/24 03:27
INR 1.52 06/27/24 03:27
APTT 76.7 Sec (23.4-35.0) H 06/26/24 04:51
Sodium 136 mmol/L (135-145) 06/27/24 03:27
Potassium 4.1 mmol/L (3.5-5.1) 06/27/24 03:27
BUN 59 mg/dl (9-20) H 06/27/24 03:27
Glucose 197 mg/dl (70-99) H 06/27/24 03:27
Calcium 7.9 mg/dl (8.4-10.2) L 06/27/24 03:27
Phosphorus 4.0 mg/dl (2.5-4.5) 06/27/24 03:27
Bjb-M-Gwzdvoaziti Pept 67123 pg/ml 06/24/24 11:02
Vitamin B12 884 pg/ml (118-931) 06/18/24 16:12
Patient Allergies
No Known Allergies Allergy (Verified 06/18/24 16:01)
Review of Systems
-
Unable to obtain full review of systems at this time due to: Patient Intubation and Aphasia
History Source: Patient
All other systems: Reviewed and negative
Physical Exam
-
General: No Apparent Distress, Intubated and Appears Stated Age
Eyes: Able to visualize OU, Round OU and [place] Conjunctivae
HEENT: Anicteric and Moist Mucous Membranes
Neck: Full Range of Motion
Respiratory: No Dyspnea
Cardiac: No JVD
GI: Non-distended
Skin: Unremarkable
Extremities: No Clubbing, No Cyanosis and No Edema
Psych: Unable to Assess
Extended Neurological Exam
Mood & Affect: Unable to Assess
Attention Span & Concentration: Awake, Alert, Interactive and Other (nods head appropriately); Negative Unresponsive to Verbal Stimuli
Memory: Unable to Assess
Tremor: Hand Tremor Absent and Head Tremor Absent
Involuntary Movement: None
Speech: Unable to Assess
Cranial Nerve II: Left Eye: Pupillary Size Unremarkable and Visual Espinal Grossly Intact
Cranial Nerve II: Right Eye: Pupillary Size Unremarkable and Visual Espinal Grossly Intact
Cranial Nerves III, IV, : Extraocular Movement: Other (Spontaneously opened eyes with tracking)
Cranial Nerve V: Facial Sensation: Unable to Assess
Cranial Nerve VII: Facial Symmetry: Normal Facial Symmetry
Muscle Strength, Overall: Full in Upper Extremities
Muscle Bulk & Tone: Bulk Unremarkable and Tone Unremarkable
Cold Sensation: Unable to Assess
Vibration Sensation: Unable to Assess
Touch Sensation: Negative Withdrawal to Pain
Coordination: Unable to Assess
Gait & Station: Unable to Assess
Data Reviewed
-
Labs: Report Reviewed
Reviewed with: Physician and Patient
Old Records: Summarized
Past History
Past History
ED Past Medical History: HTN, Hypercholesterolemia, IDDM, Other (Cellulitis, anoxic encephalopathy ) and Other (Nonischemic cardiomyopathy, mild MR)
ED Past Surgical History: Orthopedic
Social History
Tobacco: Former smoker
Alcohol: Occasional
Personal:
Living: with family
Employment: Employed
Family History
Family History: Other (Coronary disease. Sister with brain cancer. Brother with prostate cancer and COPD)
Medications
-
Medications:
Generic Name Dose Route Start Last Admin
Trade Name Freq PRN Reason Stop Dose Admin
Acetaminophen 650 mg 06/24/24 09:43
Acetaminophen 650 Mg Rectal Suppository RECTAL 06/28/24 09:42
Q6HPRN PRN
if cannot be given via tube
Acetaminophen 650 mg 06/26/24 18:29
Acetaminophen (Oral Solution) 650 Mg/20.3 Ml Cup TUBE 07/24/24 18:28
Q4HPRN PRN
mild pain/OROPEZA/temp> 100.4F
Amiodarone HCl 200 mg 06/25/24 20:00 06/27/24 07:16
Amiodarone 200 Mg Tablet TUBE 07/23/24 19:59 200 mg
BID KARISSA Administration
Aspirin 81 mg 06/25/24 12:00 06/27/24 07:16
Aspirin 81 Mg Chewable Tablet TUBE 07/23/24 11:59 81 mg
DAILY KARISSA Administration
Carboxymethylcellulose Sodium 1 drops 06/24/24 20:00 06/27/24 07:16
Carboxymethylcellulose Ophth Gel (Celluvisc) Droperette OPHTH 07/22/24 19:59 1 drops
BID KARISSA Administration
Dextrose 12.5 grams 06/24/24 12:39
Dextrose 50% (0.5 Grams/Ml) 50 Ml Syringe IV 07/22/24 12:38
[id number] PRN
Blood Glucose < 70
Fentanyl Citrate 50 mcg 06/24/24 17:00 06/27/24 03:17
Fentanyl (50 Mcg/Ml) 100 Mcg/2 Ml Ampul IV 07/08/24 16:59 50 mcg
[id number] PRN Administration
see protocol
Protocol
Furosemide 40 mg 06/26/24 12:00 06/27/24 07:15
Furosemide 40 Mg (10 Mg/Ml) 4 Ml Vial IV 07/24/24 11:59 40 mg
DAILY KARISSA Administration
Heparin Sodium 25,000 units in 250 mls @ 0 mls/hr 06/22/24 09:15 06/26/24 20:02
Heparin 48836 Units/250 Ml IV 250 mls
PER PROTOCOL KARISSA Administration
Protocol
Per Protocol
Norepinephrine Bitartrate 4 mg in 250 mls @ 0 mls/hr 06/24/24 09:45 06/26/24 09:02
Levophed IV 250 mls
PER PROTOCOL KARISSA Administration
Protocol
Per Protocol
Insulin Human Regular 100 units in 100 mls @ 0 mls/hr 06/26/24 07:45 06/27/24 04:30
Novolin R Insulin Infusion IV 100 mls
PER PROTOCOL KARISSA Administration
Protocol
Per Protocol
Insulin Aspart 0 units 06/24/24 16:30 06/26/24 17:36
Insulin Aspart (100 Units/Ml) 3 Ml Flexpen SC 07/22/24 16:29 Not Given
AC KARISSA
Protocol
Meropenem 500 mg 06/23/24 14:00 06/27/24 07:16
Meropenem 500 Mg/10 Ml Vial IV 500 mg
Q6H KARISSA Administration
Pantoprazole Sodium 40 mg 06/25/24 08:00 06/27/24 07:17
Pantoprazole Sodium 40 Mg/10 Ml Vial IV 07/23/24 07:59 40 mg
DAILY KARISSA Administration
Polyethylene Glycol 17 grams 06/26/24 12:00 06/27/24 07:17
Polyethylene Glycol Powder 17 Grams Packet TUBE 07/24/24 11:59 17 grams
DAILY KARISSA Administration
Sennosides 8.8 mg 06/26/24 11:45 06/27/24 07:16
Sennosides (Senna Syrup) 8.8 Mg/5 Ml Unit Dose Cup TUBE 07/24/24 11:44 8.8 mg
BID KARISSA Administration
Sodium Chloride 0 flush 06/18/24 23:00 06/22/24 15:38
Sodium Chloride 0.9% (Flush) Syringe IV 07/16/24 22:59 1 flush
PER PROTOCOL KARSISA Administration
Sodium Chloride 10 ml 06/25/24 08:00 06/27/24 07:16
Sodium Chloride 0.9% (Preservative Free) 10 Ml Vial IV 07/23/24 07:59 10 ml
DAILY KARISSA Administration
Sterile Water 10 ml 06/23/24 14:00 06/27/24 07:17
Sterile Water For Injection 10 Ml Vial IV 07/21/24 13:59 10 ml
Q6H KARISSA Administration
[2024-06-27 07:44] LABS: Glucose - Point of Care 73 mg/dl (70-99)
[2024-06-27] MEDS: NOVOLOG FLEXPEN SC ×2 (07:59→12:11)
--- NOTE | 2024-06-27 08:04 | PN.DE.MGMTRT ---
Insulin Management
- -
06/27/2024: Diabetes Management Consult Follow up
63 year old male who presented to ER on 06/18/24 with report of AMS changes, of staring, garbled speech, confusion, and balance difficulty lasting an unclear amount of time. Of note, pt was recently admitted at [facility] for LV thrombus
and HFrEF (on Coumadin).
PMH: NICM, mild MR, HTN, Hypercholesterolemia Renal insufficiency, RLE Cellulitis, nicotine use and IDDM. Prior to admission was taking Levemir 20 units BID, Humalog 5 units AC and Farxiga 10mg daily prior to admission. A1C 10.8%.
Pt was also noted for a chronic nonhealing left foot wound as well as a more acute gangrenous left hallux and associated foot infection. He underwent a partial first ray resection on 06/23.
OR 06/24/24 for RLE percutaneous revascularization. Upon anesthesia induction patient PEA/Vfib arrested and underwent ACLS until ROSC was achieved and procedure was aborted.
Patient remains intubated but awake able to nod head appropriately, unable able to interview, no family at bedside. Information obtained from chart review
Cr 1.4, eGFR 55.78 today.
06/27 required up to 32 units of insulin per hour06/26, @ 7am today glucose 73 insulin infusion off. Start 12 units lantus BID and novolog moderate corrective Q 6 hours. Per protocol glucose to be checked Q 1 hour x 4 then q2 hour x 2.
Discussed with Billing And Insurance Coordinator and nurse.
Will follow.
Diabetes History
- -
Type of Diabetes: 2 requiring insulin
Pre-Admission Diabetes Regimen
06/26/24 06/27/24
08:48 03:27
Creatinine 1.4 H 1.3
Lab Results
Hemoglobin A1c 10.8 % (4.0-5.6) H 06/19/24 05:43
Insulin Pump Settings
IP Diabetes Regimen
06/26/24 06/26/24 06/26/24
02:10 08:32 08:48
Glucose 153 H
POC Glucose 223 H 169 H
06/26/24 06/26/24 06/26/24
10:27 12:25 14:24
Glucose
POC Glucose 128 H 133 H 129 H
06/26/24 06/26/24 06/26/24
16:21 18:37 19:32
Glucose
POC Glucose 115 H 115 H 139 H
06/26/24 06/26/24 06/26/24
20:59 22:10 23:06
Glucose
POC Glucose 212 H 229 H 206 H
06/26/24 06/27/24 03/
23:49 01:06 01:59
Glucose
POC Glucose 246 H 249 H 258 H
06/27/25 /20/25 03/20/25
03:06 03:27 04:27
Glucose 197 H
POC Glucose 249 H 179 H
25 03/20/25 03/20/25
05:31 06:33 07:23
Glucose
POC Glucose 159 H 105 H 73
Patient Education
[2024-06-27 08:21] LABS: APTT 63.7 Sec (23.4-35.0)
--- NOTE | 2024-06-27 08:31 | PTCARENOTE ---
started vent wean at 0830
[2024-06-27 08:39] LABS: Glucose - Point of Care 71 mg/dl (70-99)
[2024-06-27 09:51] LABS: B.E. 2.5 mmol/L; HCO3 26.1 mmol/L (21-28); O2 Saturation % 99.9 % (94-98); PCO2 35 mmHg (35-48); PO2 132 mmHg (83-108); pH 7.48 (7.35-7.45)
[2024-06-27 09:52] LABS: Glucose - Point of Care 110 mg/dl (70-99)
[2024-06-27 10:44] LABS: Glucose - Point of Care 136 mg/dl (70-99)
--- NOTE | 2024-06-27 10:45 | PTCARENOTE ---
Extubated patient to bipap. following commands.
[2024-06-27] MEDS: LANTUS 0.12 UNITS SC ×2 (10:46→21:00)
[2024-06-27] MEDS: TYLENOL ORAL SOLUTION 650 MG TUBE (10:52)
--- NOTE | 2024-06-27 10:52 | W.PN.ID1 ---
Date of Service
Date of Service: June 27, 2024
Today's Communication
continue meropenem day 6
Assessment / Plan
MSSA Bacteremia
Possible endocarditis
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
PEA/v fib arrest 06/24
CVA
Dm2 uncontrolled
- 06/21 and 06/22 blood cultures remain no growth to date
- TTE without vegetations, plan empiric treatment for possible endocarditis
- reached out to cardiology Dr Ny yesterday, agree with repeat TTE when feasible, I would recommend AICD placement after completion of treatment for possible endocarditis
- continue meropenem day 6
- will require a course of home IV antibiotics with cefazolin, transition pending course
- patient remains critically ill with interval improvement
Choledocholithiasis s/p ERCP 06/21
- meropenem as above day 6
Chief Complaint
-: Other (wet gangrene, mssa bacteremia, possible endocarditis)
Subjective / Review of Systems
afebrile
BP now stable off of pressors
undergoing a ventilator weaning trial today
transfusion overnight
neurology assessed as ' severe anoxic injury 1 day ago'
Vital Signs / Physical Exam
Vital Signs
Vital Signs
Temp Pulse Resp BP Pulse Ox
98.2 F 83 12 110/72 100
06/27/24 10:00 06/27/24 09:00 06/27/24 09:00 06/27/24 09:00 06/27/24 09:08
Physical Exam
Constitutional: No Acute Distress and Chronically Ill
Cardiovascular: Regular Rate and S1/S2; Negative Murmur or Rub
Pulmonary: Clear and Symmetric; Negative Wheezes or Rales
Gastrointestinal: Soft, Non Tender, Non Distended and Normal Bowel Sounds
Skin: Warm and Dry; Negative Rash or Jaundice
Wound: Other (dressing clean, dry, intact)
Neurological: Awake, Alert and Other (gaze tracking, moving his head)
Psychological: Calm
Objective Data
Lab Data
Lab Results
06/27/24 03:27
PT 18.8 Sec (11.4-14.6) H 06/27/24 03:27
INR 1.52 06/27/24 03:27
APTT 63.7 Sec (23.4-35.0) H 06/27/24 07:58
Estimated Creat Clear 70 ml/min 06/27/24 03:27
Lactic Acid 1.0 mmol/L (0.7-2.0) 06/26/24 08:48
Total Bilirubin 1.8 mg/dl (0.2-1.3) H 06/27/24 03:27
AST 36 U/L (17-59) 06/27/24 03:27
ALT 30 U/L (0-50) 06/27/24 03:27
Alkaline Phosphatase 187 U/L (38-126) H 06/27/24 03:27
Most recent labs reviewed.
Micro Results:
06/22/24 13:23 Blood Culture - Preliminary
Blood/Venous No Growth in 4 days- Final report to follow
06/21/24 09:33 Blood Culture - Final
Blood/Venous No Growth - Final Report
06/22/24 14:36 Wound Culture - Final
Abscess S aureus-Methicillin Sensitive
Gram Stain - Final
06/20/24 00:42 Blood Culture - Final
Blood/Venous S aureus-Methicillin Sensitive
Gram Stain - Final
06/20/24 01:59 Blood Culture - Final
Blood/Venous S aureus-Methicillin Sensitive
Gram Stain - Final
06/18/24 16:51 Urine Culture - Final
Urine NO GROWTH
06/18/24 16:11 Influenza Types A & B (HUBER) - Final
Nasal Swab Negative for Influenza A & B, NAAT
Negative results must be combined with clinical observations
and patient history.
Nucleic Acid Amplification test (NAAT)performed on the
[employer] platform.
--- NOTE | 2024-06-27 11:10 | W.PN.CARDCBS ---
Today's Communication / Plan
-
No new unstable ventricular arrhythmias. Continue amiodarone 200 mg p.o. twice daily
He is off pressors and will restart carvedilol 3.125 mg p.o. twice daily
We will need to revisit ischemic evaluation as well. Once his mental status is improved I would consider repeat cardiac cath. Cath from 2018 was overall unremarkable but he has had another significant ventricular event
Ultimately he likely will need an ICD as well as he continues to recover. He does have MSSA bacteremia which has cleared and is afebrile. Will likely repeat transthoracic over next 24 to 48 hours to follow.
Another option would be LifeVest and wait for bacteremia to completely clear with extended antibiotics.
Impression / Plan
-
PCP: Dr. Sherwood
Cardiology: Dr. Ny, last seen 06/2022
Impression:
Intraoperative PEA/ventricular fibrillation arrest 06/24/2024
Admitted with confusion and acute HFrEF 06/18/24
Tiny nonhemorrhagic acute/subacute infarct in the right periventricular white matter/centrum semiovale region by MRI 06/19/2024
Recent admission to [facility] for acute HF and foot wound 06/06/24 until 06/12/24
Hypotension
Acute HFrEF
CM EF 15% by echo at [facility] 06/07/24
h/o improved NICM EF 25% by echo 03/2018 and then improved to 40% by echo 06/2022
Nonobstructive CAD by cath 2017
Medication noncompliance
Newly diagnosed LV thrombus
1.5 x 1.2 cm LV apical clot on echo at [facility] 06/07/24
Chronic warfarin managed by [facility]
started for LV clot 06/07/24
Supratherapeutic INR on admission
Hyponatremia
GHAZAL on CKD 3a
Elevated LFTs
Chews tobacco
Unwitnessed fall
Echo 05/30/2024: [facility] study, EF 15 to 20%, severe global hypokinesis and septal dyskinesis, small and organized thrombus in the LV apex measuring 1.5 x 1.2 cm, grade 3 diastolic dysfunction, at least mildly dilated RV with reduced
systolic function, mild to moderate MR, mild pericardial effusion seen posteriorly without evidence of tamponade
Echo 06/20/24 with IV echo contrast: LV ejection fraction severely reduced, 15-20% with global hypokinesis. Dilated, hypokinetic right ventricle. Biatrial dilatation. Mild MR. Mild to moderate TR. Estimated pulmonary artery systolic pressure
50-55 mmHg. Small pericardial effusion without evidence of hemodynamic compromise. No LV apical thrombus
Plan:
Admitted with change in mental status and found to have small nonhemorrhagic right hemispheric CVA, recently hospitalized with LV thrombus and acute and chronic HFrEF with left lower extremity wound infection. Also with choledocholithiasis, status
post ERCP and sphincterotomy with stone extraction June 21. Underwent debridement of left foot wound 317, received treatment for acute HFrEF during hospital stay, went for right lower extremity percutaneous revascularization procedure today and
upon induction of anesthesia had pulseless electrical activity degenerating into VF requiring ACLS and ultimately return of spontaneous circulation. Now intubated on pressors in ICU.
PEA/ventricular fibrillation arrest: Rhythm is stable. Continue amiodarone no significant ventricular tachycardia. His temperature is now warmed. Mental status is overall improved. Will review transthoracic echo. He does have MSSA bacteremia.
Discussed case with infectious disease and will need to decide on risk/benefit of ICD versus risk of infection. Repeat blood cultures are negative.
Acute on chronic HFrEF: Weight is down he is now off pressors. Restart carvedilol 3.125 mg p.o. twice daily. Continue Lasix 40 mg IV daily. Creatinine is overall improved and down to 1.3. Eventually restart Entresto and spironolactone when blood
pressure continues to improve.
PAD, foot wound, methicillin sensitive Staph aureus bacteremia: Continue meropenem, ? Endovascular infection
Recent right periventricular nonhemorrhagic CVA: Unclear whether cardioembolic, his mental status continues to improve and he is now extubated and awake.
LV thrombus: Not seen on most recent echo,
Choledocholithiasis: ERCP June 21 with sphincterotomy and stone extraction
GHAZAL: Creatinine relatively stable at 1.3 despite PEA/VF arrest, will continue to follow
DM:
Toxic metabolic encephalopathy on admission/possible CVA. This continues to improve
Critical care time 33 minutes
HPI: [facility] from home yesterday with confusion and garbled speech and was admitted for acute HF and cardiology has been consulted. Patient is a poor historian and gave me permission to call his daughter. Also reviewed 67 pages of
records from recent [facility] admission. Patient had NICM diagnosed in 2018 and with GDMT his EF improved to 40% by last echo at in 06/2022. Patient then stopped coming to cardiology appts at , but reportedly did not start following elsewhere.
Patient then retired and stopped taking his medications on a regular schedule despite reminders from family. Patient started with LE wounds 02/2024 and following with wound care center and seemed to be improving. Patient then started with a cough
and saw his PCP 05/02/24 and lungs were clear and he was started on promethazine and albuterol. Patient was then admitted to [facility] with SOB 06/06/24 and during that admission was found to have EF down to 15% and he had a new LV clot and was started
on warfarin. Patient was also d/c'd to home on Coreg, Entresto and spironolactone which are meds he had been on when he was last seen in the cardiology office in 2022. Patient was diuresed with Lasix IV and d/c'd to home on Lasix 40 mg PO BID.
Patient's daughter reports that patient was not taking meds at home and when VN came to see him he had garbled speech and was sent to the ER.
Progress Note - Financial Reporting Advisor
Subjective
Date of Service: June 27, 2024
Patient is awake and extubated now on BiPAP. Off pressors
Objective
Labs:
06/27/24 03:27
Labs
Hgb 7.0 g/dL (13.0-18.0) L 06/27/24 03:27
Hct 21.0 % (39.0-52.0) L 06/27/24 03:27
Plt Count 328 10^3/uL (130-400) 06/27/24 03:27
PT 18.8 Sec (11.4-14.6) H 06/27/24 03:27
INR 1.52 06/27/24 03:27
APTT 63.7 Sec (23.4-35.0) H 06/27/24 07:58
Sodium 136 mmol/L (135-145) 06/27/24 03:27
Potassium 4.1 mmol/L (3.5-5.1) 06/27/24 03:27
BUN 59 mg/dl (9-20) H 06/27/24 03:27
Creatinine 1.3 mg/dL (0.7-1.3) 06/27/24 03:27
Glucose 197 mg/dl (70-99) H 06/27/24 03:27
Troponins
06/24/24 06/24/24 06/24/24
11:02 11:02 16:52
Troponin I 0.080 H* D Cancelled 0.150 H* D
06/24/24 06/25/24
22:02 05:48
Troponin I 0.141 H* 0.101 H* D
Vital Signs and I&O:
Vital Signs
Temp Pulse Resp BP Pulse Ox
98.2 F 83 12 110/72 100
06/27/24 10:58 06/27/24 09:00 06/27/24 09:00 06/27/24 09:00 06/27/24 09:08
Vital Signs
Temp Pulse Resp BP Pulse Ox
98.2 F 83 12 110/72 100
06/27/24 10:58 06/27/24 09:00 06/27/24 09:00 06/27/24 09:00 06/27/24 09:08
Intake & Output
06/25/24 06/26/24 06/27/24 06/28/24
06:59 06:59 06:59 06:59
Intake Total 2386.8 / 2399.6 859.2 / 895.2 2168.5 / 2204.5 108 / 108
Output Total 1132 / 1142 1515 / 1555 2375 / 2475 735 / 735
Balance 1254.8 / 1257.6 -655.8 / -659.8 -206.5 / -270.5 -627 / -627
Physical Exam
Physical Exam
GEN: No distress, awake, groggy
HEENT: supple, anicteric, mmm
LUNGS: Scattered rhonchi
CV: Reg, S1/S2, 1/6 syst LSB, no gallop
ABD: soft, BS+, NT/ND
EXT: No edema
NEURO: Gross non-focal
SKIN: No rash
[2024-06-27 11:46] LABS: Glucose - Point of Care 177 mg/dl (70-99)
[2024-06-27] MEDS: NOVOLOG FLEXPEN-MODERATE RESISTANCE 1 UNITS SC ×2 (12:12→18:36)
--- NOTE | 2024-06-27 13:00 | PTCARENOTE ---
removed TTM pads. performed another CHG bath. all areas of skin covered by pads intact
--- NOTE | 2024-06-27 13:27 | W.PN.INTV ---
Today's Communication / Plan
Recommendations
-Patient extubated to BiPAP and then subsequently nasal cannula
-Hold tube feeding, speech therapy eval, if passes will start p.o. feeding
-Continue diuresis with Lasix
-Transition IV insulin to subcu
-Transfuse 1 unit PRBC today
Assessment
-
63 old gentleman with known history of LV EF 10 to 15% and pulmonary hypertension was scheduled for arteriogram in the OR. Post induction with propofol, patient developed progressive hypotension followed by a PEA arrest and CPR was started.
Subsequently patient developed ventricular tachycardia and at some point ventricular fibrillation requiring ongoing CPR and defibrillation. Eventually ROSC was achieved and patient was transferred to ICU, intubated and on mechanical ventilation.
Mechanical Engineering Lecturer consult was requested for further management. Prior to this event, patient has been in the hospital for a gangrenous right foot status post ray amputation and has been on meropenem for MSSA bacteremia with sepsis. Stays also
complicated by choledocholithiasis status post ERCP and stone retrieval.
last 24 hrs:
-Patient more awake, alert, extubated 06/29 BiPAP and then subsequently nasal cannula
-Currently on heparin drip only off Levophed and off insulin
-Blood gas on pressure support, 7.48, 35, 132
-Fluid balance, -875 ml
-Hemoglobin drop noted, patient getting 1 unit of packed RBCs
-CXR stable
#1. Cardiac arrest with PEA followed by Ventricular Tachycardia followed by Polymorphic VT/V Fib
-Hypotension and PEA arrest post induction with Propofol. S/p 3 rounds of ACLS and 4 defibrillations followed by ROSC
-Successfully extubated 06/27
-Amiodarone to PO 200 mg bid
-Target K >4 and Mg >2
-Telemetry
-ECHO reviewed, EF 10-15% with Estimated PAP [address] head negative for acute changes
-Targeted temperature management with goal to keep normothermia and avoid fever, completed
-Monitor electrolytes closely
-Target MAP 65
-Hold tube feeding. Speech therapy eval
#2. Shock, cardiogenic and also vasoplegia post cardiac arrest
-Resolved, off Levophed now
-Known h/o LV failure and Severe Pulmonary HTN
-Off Vasopressin
-Continue Meropenem
#3. Severe non-ischemic cardiomyopathy with EF 10-15% with Pulmonary HTN (62mm) with LV Thrombus
-Cardiology service on case
-Vasopressors as needed
-Monitor I/O closely, -800 ml
-Continue Heparin drip
-Continue Lasix IV daily
#4. RLL Aspiration pneumonia vs Pneumonitis
-Continue Meropenem
-CXR improving
#5. 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
-ID service on case. Bacteremia has since resolved
-Podiatry service and Vascular service on case
#6. Concern for ischemic/Anoxic encephalopathy
-Patient more awake, alert and successfully extubated
-Mild delirium on exam, serial exam
-Stay off sedation, off Buspirone
-Neurology service on case
#7. DM
-Insulin to be transitioned to s.c.
GI Prophylaxis: IV PPI
Critical Care time 45 mins -- The patient is admitted for acute critical illness for the treatment of vital organ failure and/or prevention of further life-threatening conditions. Total care includes time spent in review of history, physical exam,
medications, hemodynamic/ventilator parameters, laboratory data, imaging and discussion with house staff, pharmacy, respiratory therapy, janitorial manager, and nursing.
Data:
ECHO 06/2024: Normal left ventricular chamber size. Severely reduced left ventricular
systolic function. Mild concentric left ventricular hypertrophy. Severe global
hypokinesis with possible inferior and apical akinesis. Left ventricular
ejection fraction is 10-15 % by visual estimate.
Mitral valve opens normally. Thickened mitral valve leaflets. Mitral annular
calcification. Mild mitral regurgitation.
Moderately dilated left atrium.
Tricuspid valve opens normally. Moderate tricuspid regurgitation. Estimated
pulmonary artery pressure of 62 mmHg assuming a right atrial pressure of 3
mmHg.
Moderately dilated right atrium.
Right ventricle appears mildly dilated and hypokinetic.
Small pericardial effusion without evidence of hemodynamic compromise.
Since echocardiogram 06/20/2024, there is no significant change.
CXR 06/24/2024
Endotracheal tube with tip in trachea above the salazar. No pneumothorax.
Patchy right lung opacity which could represent pneumonia/pneumonitis.
Nasogastric tube with tip in proximal stomach.
Subjective Dataa
Subjective Data
Date of Service:
Date of Service: June 27, 2024
Subjective:
Patient initially was examined while on ventilator, subsequently examined again on BiPAP after extubation and then again once he transition to nasal cannula.
Review of Systems
Genitourinary: Other (Does not appear to be in any distress, still not able to participate fully in review of system discussion)
Objective Data
Data Reviewed
Vital Signs / I&O / Oxygen:
Vital Signs
Temp Pulse Resp BP Pulse Ox
98.2 F 88 16 149/91 100
06/27/24 10:58 06/27/24 12:30 06/27/24 12:30 06/27/24 12:30 06/27/24 12:30
Intake and Output
06/26/24 06/27/24 06/28/24
06:59 06:59 06:59
Intake Total 859.2 / 895.2 2168.5 / 2204.5 122 / 122
Output Total 1515 / 1555 2375 / 2475 795 / 795
Balance -655.8 / -659.8 -206.5 / -270.5 -673 / -673
SaO2 [P-SIMV] 100
SaO2 [A/C] 100
SaO2 100
Nasal Cannula flow liters per 4
minute
Physical Exam
General: Comfortable
HEENT: Normocephalic
Cardiovascular: Regular Rhythm
Respiratory: Clear
GI: Soft and Non Distended
Neurology: Awake, Alert and Other (No meaningful communication)
Skin: Warm
Labs/Micro/Reports
Lab Data
06/27/24 03:27
Laboratory Results
06/26/24 06/27/24 06/27/24
13:33 03:27 03:57
PT 18.8 H
INR 1.52
APTT
pH 7.51 H 7.46 H
pCO2 36 38
pO2 153 H 144 H
HCO3 28.7 H 27.0
O2 Delivery Level
06/27/24 06/27/24
07:58 09:41
PT
INR
APTT 63.7 H
pH 7.48 H
pCO2 35
pO2 132 H
HCO3 26.1
O2 Delivery Level
Microbiology
06/22/24 13:23 Blood/Venous Blood Culture - Preliminary
No Growth in 4 days- Final report to follow
06/21/24 09:33 Blood/Venous Blood Culture - Final
No Growth - Final Report
[2024-06-27 13:52] LABS: Glucose - Point of Care 180 mg/dl (70-99)
--- NOTE | 2024-06-27 14:35 | PTCARENOTE ---
Talked to tobacco educator, Per Dr. Wharton, will leave patient off tube feeds today. Patient is aphasic, unable to speak, but does not appropriately, moaning. Blood sugar at 1330 was 180. per glycemic protocol, should have turned drip back on,
but talked to tobacco educator, will have drip off and continue with moderate coverage q6hrs.
--- NOTE | 2024-06-27 15:00 | CM ---
CM following re: discharge planning.
Discussed in Rounds, reviewed pt's chart, met with pt. Pt's spouse and 2 daughters at bedside.
Pt successfully extubated today to Bi-pap, continue supportive care.
PT and OT will evaluate the pt when clinically appropriate to determine a level of care at discharge.
D/C plan: [facility] following.
CM will follow with discharge plan updates as hospitalization progresses
[2024-06-27 15:51] LABS: Hematocrit 22.2 % (39.0-52.0); Hemoglobin 7.5 g/dL (13.0-18.0)
[2024-06-27] MEDS: HEPARIN 25000 UNITS/250 ML IV (15:56)
[2024-06-27 16:01] LABS: APTT 95.6 Sec (23.4-35.0)
--- NOTE | 2024-06-27 16:12 | PTCARENOTE ---
IVT at bedside to place Left midline. assessed right peripheral IV, ok to use. will switch midline into right upper arm. PTT therapeutic, will obtain order to discontinue right femoral line.
--- NOTE | 2024-06-27 16:51 | VATNOTE ---
removed right fem tlc per protocol. No bleeding at site when dsg applied.
--- NOTE | 2024-06-27 17:00 | PTCARENOTE ---
Podiatry came and changed dressing. Nursing may change dressing every other day or as needed. doreen tellez kling and anastacia to left foot open amputation wound.
[2024-06-27 18:05] LABS: Glucose - Point of Care 155 mg/dl (70-99)
--- NOTE | 2024-06-27 20:00 | PTCARENOTE ---
rec`d pt at 1900. awakens to verbal stimuli. is moaning at times but no clear words are said. NIH done with previous nurse, NIH a 16-same as previous shift. moves upper extremities often. follows commands at times. slow to respond with commands.
pupils =. SR on monitor. HR in 80s. 2L NC POX99%. rt nare emilm @65. flushed. feuntes draining adry urine. left midline and rt bicep IVS flushed and patent. heparin gtt continued at 1400/14cc/hr. left foot wound c/d/i. spoken to pts daughter on
phone. safe environment maintained. trending h&h.
[2024-06-27] MEDS: SEROQUEL 12.5 MG TUBE (21:00)
[2024-06-27 21:08] LABS: Glucose - Point of Care 164 mg/dl (70-99)
[2024-06-27 21:16] LABS: Hematocrit 19.8 % (39.0-52.0); Hemoglobin 6.7 g/dL (13.0-18.0)
[2024-06-27 21:21] LABS: APTT 105.3 Sec (23.4-35.0)
[2024-06-27 23:49] LABS: Glucose - Point of Care 169 mg/dl (70-99)
[2024-06-28] VITALS (44 sets, daily range): BP systolic 99–161; BP diastolic 65–141; BMI 27.4
[2024-06-28] MEDS: NOVOLOG FLEXPEN-MODERATE RESISTANCE 1 UNITS SC ×3 (00:01→12:15)
--- NOTE | 2024-06-28 00:16 | PTCARENOTE ---
1 unit of blood complete.
[2024-06-28] MEDS: STERILE WATER FOR INJECTION 10 ML IV ×4 (01:40→20:17)
[2024-06-28] MEDS: MERREM 500 MG IV ×4 (01:40→20:17)
[2024-06-28] MEDS: TYLENOL ORAL SOLUTION 1000 MG TUBE (02:41)
--- NOTE | 2024-06-28 03:02 | PTCARENOTE ---
full CHG bed bath given. new sacral foam and stat lock placed. skin tear on posterior left lower leg:foam place for protection. prn Tylenol given- pt nodded yes to pain. call dillard in reach, safe environment maintained.
[2024-06-28 04:02] LABS: Mean Corp Hgb Conc. 34.5 g/dL (33.0-37.0); Mean Corpuscular Hgb 29.4 pg (27.0-31.0); Mean Corpuscular Volume 85.3 fL (80.0-94.0); Mean Platelet Volume 10.4 fL (7.4-10.4); Platelet Count 291 10^3/uL (130-400); Red Blood Cell Count 2.38 10^6/uL (4.70-6.10); Red Cell Dist. Width 15.7 % (11.5-14.5); White Blood Cell Count 15.1 10^3/uL (4.8-10.8)
[2024-06-28 04:07] LABS: APTT 86.8 Sec (23.4-35.0)
[2024-06-28 04:15] LABS: Hematocrit 21.1 % (39.0-52.0)
[2024-06-28 04:32] LABS: Blood Urea Nitrogen 56 mg/dl (9-20); Calcium 7.7 mg/dl (8.4-10.2); Carbon Dioxide 26 mmol/L (22-30); Chloride 103 mmol/L (98-107); Estimated Creatinine Clearance 82 ml/min; Glucose 163 mg/dl (70-99); Magnesium 2.2 mg/dl (1.6-2.3); Phosphorus 3.9 mg/dl (2.5-4.5); Potassium 4.4 mmol/L (3.5-5.1); Sodium 136 mmol/L (135-145); eGFR > 60.00
[2024-06-28 05:09] LABS: Glucose - Point of Care 178 mg/dl (70-99)
--- NOTE | 2024-06-28 05:16 | PTCARENOTE ---
2L NC off. POX 95%.
[2024-06-28] MEDS: DILAUDID 0.5 MG IV (06:58)
[2024-06-28] MEDS: MIRALAX 17 GRAMS TUBE (07:00)
[2024-06-28] MEDS: PROTONIX IV 40 MG IV (07:01)
[2024-06-28] MEDS: SENNA SYRUP 8.8 MG TUBE ×2 (07:01→20:28)
[2024-06-28] MEDS: LASIX 40 MG IV (07:01)
[2024-06-28] MEDS: NSS (PRESERVATIVE FREE) 10 ML IV (07:01)
[2024-06-28] MEDS: REFRESH CELLUVISC GEL 1 DROPS OPHTH (07:01)
[2024-06-28] MEDS: LOW STRENGTH ASPIRIN 81 MG TUBE (07:02)
[2024-06-28] MEDS: PACERONE 200 MG TUBE ×2 (07:02→20:18)
--- NOTE | 2024-06-28 07:18 | W.PN.HOSP.TC ---
Today's Communication/Plan
-
monitor H&H transfuse prn Hgb<7.5
glycemic control
abx as per ID
diuresis rate and rhythm control as per Cardio
wound care as per Podiatry
abx as per ID
cont ICU care
minimize sedating medications as feasible
seroquel HS, restraints prn, maintain NGT pending clearance to resume oral diet
Assessment / Plan
Assessment / Plan
Physical Exam
GEN: no acute distress
HEENT: EOMI, MMM
LUNGS: Intubated. CTA B/L without wheeze or rales
CV: Normal sinus rhythm no murmurs gallops
ABD: soft, BS+, NT, ND
EXT: left foot wound dressing clean dry intact
NEURO: Alert Awake confused nonverbal
63M HFrEF CKD3 DM neuropathy HLD Nicotine dependence complicated hospital course with MSSA bacteremia, Left hallux gangrene, CVA suspect 2/2 cardiac emboli LV thrombus. Had partial amputation Lt Hallux Gangrene OR Podiatry 06/23. Patient was
planned for revascularization LLE 06/24 however developed PEA/Vfib arrest after anesthesia induction requiring ACLS. ROSC eventually achieved, patient was subsequently transferred to ICU intubated and requiring pressor support.
06/24/24 PEA/Vfib arrest following Anesthesia Induction
Acute Anoxic Encephalopathy vs Delirium
Underwent 3 rounds of ACLS and 4 defibrillations as per Cardio before ROSC was achieved
CT head appreciated no acute abn's
ECHO post-code appreciated EF 10-15% no significant change from prior ECHO 06/20/24
transferred to ICU intubated and on pressor support, poor neurologic recovery noted then, unresponsive off sedation
amiodarone gtt transitioned to PO via ngt
Neuro Cardio Software Applications Architect shimon appreciated
weaned off pressor support
TTM completed, mental status improving
Extubated 06/27
Though stable respiratory status on NC, remains confused nonverbal unsafe to start oral diet, remains on tube feeds
minimize sedating medication use as possible
12.5 mg Seroquel HS, nonviolent restraints prn
# MSSA bacteremia
-Blood cultures from 06/20 positive for MSSA [correction to prior documentation]
-Suspect secondary to left hallux wet gangrene, which itself is suspected due to embolic effect
-Antibiotics switched to meropenem, cont as per ID
-Repeat blood cultures from 06/21 and 06/22 with no growth to date
-Treatment of underlying wet gangrene, appreciate guidance from ID and podiatry
-strict NWB and elevation LLE as per Podiatry
#Left hallux gangrene:
-Suspect secondary to embolism as also caused stroke
-wound cx pos MSSA
-Status post partial amputation in the OR with podiatry 06/23
-Planned for revascularization 06/24 aborted d/t PE/Vfib arrest as above
-Continue local wound care, empiric meropenem
-Continuing anticoagulation with IV heparin, warfarin held for surgical procedures
-Appreciate input from ID and podiatry
#reported hx LV thrombus
-Dx 2 weeks prior to arrival at [facility], suspect due to severely depressed LVEF
-Started on Coumadin anticoagulation 06/07/2024 for LV apical thrombus
-Coumadin on hold, on hep gtt for potential procedures
Progressive Anemia
- possible anemia of chronic disease vs blood loss from wound vs iatrogenic (less likely)
-monitor H&H and transfuse as necessary Hgb<7.5
-Iron panel appreciated anemia of chronic disease
#CVA
- Suspect secondary to cardiac emboli
� Acute/subacute infarct in the right periventricular white matter/centrum semiovale region
� Anticoagulated with IV heparin drip
� Neurology consult appreciated
� Carotids unremarkable
- hold PT OT d/t critical illness requiring ICU care as above
#Acute on chronic HFrEF
EF 15-20%
-Cardio eval appreciated Lasix and Coreg restarted following wean off pressors.
-Farxiga resumed
#Choledocholithiasis
-ERCP 06/21 with stone identified and removed and biliary sphincterotomy performed
-GI eval appreciated
#Transaminitis
� Secondary to choledocholithiasis, ERCP performed 06/21
� Resolving after ERCP
#GHAZAL
-probable cardiorenal
-Initial creat 1.6 since improved
-CKD III ruled out with resolution GHAZAL
-monitor
#DM 2/diabetic neuropathy
-Uncontrolled, hemoglobin A1c 10.8% this admission
-DM ENGINEERING EQUIPMENT OPERATOR eval appreciated
-insulin gtt transitiioned to subq
-Farxiga resumed
-Gabapentin 600 mg daily on hold d/t Encephalopathy as above
#Mild Hyponatremia
monitor
#HLD
-Continue statin
#Nicotine dependence
DVT prophylaxis hep gtt
Full code
Guarded Prognosis
Total Critical Care Time__50___ minutes. I was immediately available to the patient and staff. I personally examined, reviewed labs, diagnostic images/reports, interpretations, treatment plans, discussed patient care with other providers, entered
orders as appropriate and documented the medical record.
Anticipated Discharge: > 48 hours
Subjective/Interval History
-
Date of Service: June 28, 2024
Awake alert but confused. nonverbal.
Objective Data
-
Labs:
Laboratory Results
06/27/24 06/28/24
20:56 03:26
WBC 15.1 H
Hgb 6.7 L* 7.0 L
Hct 19.8 L* 21.1 L
Plt Count 291
APTT 105.3 H 86.8 H
Sodium 136
Potassium 4.4
Chloride 103
Carbon Dioxide 26
BUN 56 H
Creatinine 1.1
Glucose 163 H
Calcium 7.7 L
Vital Signs:
Vital Signs
Temp Pulse Resp BP Pulse Ox
98.7 F 78 15 147/76 93
06/28/24 06:57 06/28/24 07:02 06/28/24 06:57 06/28/24 07:02 06/28/24 06:57
I&O
06/27/24 06/28/24 06/29/24
06:59 06:59 06:59
Intake Total 2168.5 / 2204.5 1024 / 1024
Output Total 2375 / 2475 1984
Balance -206.5 / -270.5 -961 / -961
[2024-06-28] MEDS: LANTUS 0.12 UNITS SC ×2 (07:25→20:23)
--- NOTE | 2024-06-28 07:34 | PTCARENOTE ---
Assumed care of pt 0700.
Blood transfusion completed by night team 2nd unit given q24, maintaining HGB > 7.5.
Pt. not tracking, partial gaze, moaning, not following commands, Pain medication given per CPOT.
Attempting to remove lines, mitts applied by night team. will attempt to trial off with family involvement.
Hemodynamically stable otherwise, RA maintaining own airway appropriately.
Heparin gtt therapeutic.
--- NOTE | 2024-06-28 08:18 | PN.DE.MGMTRT ---
Insulin Management
- -
06/28/2024: Diabetes Management Follow up
63 year old male who presented to ER on 06/18/24 with report of AMS changes, of staring, garbled speech, confusion, and balance difficulty lasting an unclear amount of time. Of note, pt was recently admitted at [facility] for LV thrombus
and HFrEF (on Coumadin).
PMH: NICM, mild MR, HTN, Hypercholesterolemia Renal insufficiency, RLE Cellulitis, nicotine use and IDDM. Prior to admission was taking Levemir 20 units BID, Humalog 5 units AC and Farxiga 10mg daily prior to admission. A1C 10.8%.
Pt was also noted for a chronic nonhealing left foot wound as well as a more acute gangrenous left hallux and associated foot infection. He underwent a partial first ray resection on 06/23.
OR 06/24/24 for RLE percutaneous revascularization. Upon anesthesia induction patient PEA/Vfib arrested and underwent ACLS until ROSC was achieved and procedure was aborted.
Patient sleeping with eyes closed, awakens to name call, appears delirious and confused, unable to interview, no family at bedside. Information obtained from chart review and Nurse. Cr 1.4-->1.1, eGFR >60 today.
He was extubated, tube feeds stopped and transitioned off CCGP yesterday to Lantus 12 units BID and corrective Q6 hrs while NPO.
Pt Failed Speech eval this morning, recommend to resume tube feeds, started Jevity @10cc/hr.
Will start NovoLog 6 units Q6 hrs while on TF. Cont 12 units Lantus BID and NovoLog moderate corrective Q 6 hours.
Discussed with IC rounding team and nurse. Will cont to follow.
Diabetes History
- -
Type of Diabetes: 2 requiring insulin
Pre-Admission Diabetes Regimen
06/28/24
03:26
Creatinine 1.1
Lab Results
Hemoglobin A1c 10.8 % (4.0-5.6) H 03/12/25 05:43
Insulin Pump Settings
IP Diabetes Regimen
06/27/24 06/27/24 06/27/24
08:28 09:41 10:32
Glucose
POC Glucose 71 110 H 136 H
06/27/24 06/27/24 06/27/24
11:34 13:36 17:54
Glucose
POC Glucose 177 H 180 H 155 H
06/27/24 06/27/24 06/28/24
20:56 23:35 03:26
Glucose 163 H
POC Glucose 164 H 169 H
06/28/24
04:58
Glucose
POC Glucose 178 H
Patient Education
--- NOTE | 2024-06-28 09:47 | PTCARENOTE ---
Addendum entered by Livan Gonzalez RN 06/28/24 11:18:
Heparin gtt to stay on per vascular pending podiatry input.
Addendum entered by Livan Gonzalez RN 06/28/24 10:09:
Failed speech eval.
TF restarted.
Original Note:
ROUND NOTES:
-Speech to see patient again, if pt fails eval again restart TF 10-20ml/hr do not advance to goal.
-Orosco removed, condom cath placed.
-Trend H/H
-MRI foot on hold pending neurology input for potential Brain MRI due to mental status change vs. ICU delirium.
--- NOTE | 2024-06-28 10:20 | CON.MD ---
Documented by User: Jeimy Shah DO, Resident 06/28/24 13:54
Consultation - Medical
-
Referring Provider: Francisco Guy
Chief Complaint: CVA
History of Present Illness: Mr. Samuel Sanchez is a 63yo M h HFrEF (EF 10-15%), CAD, HTN, HLD, IDDM, CKD stage 3a admitted for a TIA. Arrived to ED 06/18 for slurred speech and coordination problems. Recently admitted at [facility] 2
weeks prior for a CHF exacerbation and LV thrombus. Placed on coumadin. Supratherapeutic INR on admission, so warfarin was held. While there, he experienced episodes of confusion while on his chronic ambien. Ambien has been held during this
hospitalization and pt started on melatonin with his home gabapentin. No evidence of seizure on EEG, but background slowing present. Carotid u/s <50% stenosis b/l. Pt found to have hypervolemic hyponatremia secondary to CHF exacerbation and GHAZAL on
CDK3. Additionally, pt found to have choledocholithiasis with leukocytosis and was started on cipro/flagyl and a PPI on 06/19. Fell on 06/20. 06/20 TTE positive for EF 15-20% w organized thrombus in the LV apex measuring 1.5 x 1.2 cm and small
pericardial effusion. INR therapeutic on 06/21, so pt Dr. Murry peformed ERCP w a biliary sphincterotomy and biliary tree sweep. Blood cx positive for MSSA, so abx changed to unasyn by Dr. Juan. Dr. Orosco consulted 06/23 for wet gangrene of left
hallux with infection. 06/23 Dr. Kirkland performed Left partial first ray amputation and multi plantar incisional debridement. Post procedure, abx changed to meropenem. 06/24 CLAIR positive for EF 10-15% w small pericardial effusion w/o LV thrombus.
06/24 Dr. Orosco attempted LLE arteriogram, but aborted due to cardiac arrest. Subsequently, pt developed an episode of HTN w vtach followed by polymorphic ventricular tachycardia and vfib. Ultimately, pt intubated and transferred to ICU on multiple
pressors. Tube feeding initiated 06/26. 06/26 EEG positive for diffuse cortical dysfunction without focal abnormality. Transfused 4 units pRBCs. Pt extubated 06/27. 06/28 speech and swallow recommendations include NPO, medications via non-oral means,
and video swallow study. Today, pt is obtunded and unable to communicate.
Past Medical History: HFrEF (EF 10-15%), CAD, PAD, IDDM, HTN, HLD, CKD stage 3a. LV thrombus 06/06 - 06/12/2024 at [facility]
Procedure History: Left partial first ray amputation and multi plantar incisional debridement, Arthroscopic knee surgery right 3 times left 2 times, renal calculi removal, penile implant, back surgery, cataract extraction with detached retina and
lens implant left eye
Family History: not pertinent
Social History:
Functional Level Premorbidly:
Functional Level Currently: bedbound
Tobacco: dip
Alcohol: Denies
Drug use: Denies
Lives with: , son
24-hour assistance available: yes
Number of floors:1
# steps to enter: 2 with left rail
# steps to second floor: n/a
Potential First floor set up:n/a
Driving: yes
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
Allergies
Allergy/AdvReac Type Severity Reaction Status Date / Time
No Known Allergies Allergy Verified 06/18/24 16:01
Home Medications
aspirin 81 mg tablet,delayed release 81 mg PO DAILY Heart disease 07/06/09
zolpidem 10 mg tablet 10 mg PO HS Sleep 04/22/19
furosemide 40 mg tablet 40 mg PO BID Fluid retention/Swelling 05/19/19
gabapentin 600 mg tablet (Neurontin) 600 mg PO HS Neurological Condition 07/09/20
carvedilol 12.5 mg tablet 12.5 mg PO BID Heart Failure ##30 07/14/20
albuterol sulfate 90 mcg/actuation aerosol inhaler 2 puff inhalation R Q6HPRN PRN sob 06/18/24
atorvastatin 80 mg tablet 80 mg PO DAILY High Cholesterol 06/18/24
dapagliflozin propanediol 10 mg tablet (Farxiga) 10 mg PO DAILY Heart Disease/Condition 06/18/24
hydralazine 25 mg tablet 25 mg PO TID Blood Pressure 06/18/24
insulin detemir U-100 100 unit/mL (3 mL) subcutaneous pen (Levemir FlexTouch U-100 Insulin) 20 unit SC BID@0800,1700 Diabetes 06/18/24
insulin lispro 100 unit/mL subcutaneous pen (Humalog KwikPen (U-100) Insulin) 5 unit SC AC Diabetes 06/18/24
magnesium oxide 400 mg PO BID Electrolyte Repletion 06/18/24
sacubitril 97 mg-valsartan 103 mg tablet (Entresto) 1 tab PO BID Heart Disease/Condition 06/18/24
spironolactone 25 mg tablet 25 mg PO QPM Heart Disease/Condition 06/18/24
warfarin 7.5 mg tablet 5 mg PO QPM Blood Clot Prevention/Tx 06/18/24
Review of Systems:
Unable to perform at this time due to patient's altered mental status.
Vitals:
BP 144/84
HR 82
RR 16
SpO2 96%
Physical Exam:
General Appearance/Observation: Well-developed, well-nourished individual in acute distress.
Pain/Comfort Assessment: Denies
Location _ Onset/Pattern _ Radiation _ Severity 0-10 _ Description/Quality _
Integumentary/Operative Site:
Pressure Ulcer Evaluation: absent over heels.
If Present: _ Location _ Stage _ Location _ Stage
Other Type of Wound: absent
If present, Type: _ Operative Site _x IV Access _ Tattoo _ Lesion _ Other
Describe:
Eyes: Conjunctiva/Lids: normal Pupils: pupils equal round and reactive to light and Accommodation
Ears/Nose/Throat: oral mucosa moist, throat clear. Lips/Teeth/Gums: normal
Neck: No muscle spasm or tenderness
Cardiovascular: Heart: regular, no murmur
Pulses: dorsalis pedis 2+ bilaterally
Respiratory: Respiratory Effort/Chest Expansion: normal Auscultation: clear to auscultation bilaterally
Gastrointestinal: abdomen not tender, no distension, normal abdominal bowel sounds
x Nasogastric tube _ Gastrostomy tube _ Jejunostomy tube _ Ostomy
Genitourinary: No Orosco
Rectal Exam: Deferred
Extremities: Edema: None Cyanosis: None Trophic changes: None
Neurology Exam:
Orientation: Alert, Oriented to self, Time, Place
Memory: Intact immediately and at 3 minutes
Higher cortical function
Repetition: Intact
Comprehension: Intact
Two step command: Intact
Naming: Intact
Cranial Nerves:
CNII: Pupillary light reflex: Intact Visual Field: Intact
CN III, IV, : Extraocular muscles: Intact
CN V: Facial Sensation at Forehead: Intact, Maxilla: Intact, Mandible: Intact
CN VII: Facial movement: Symmetric
CN VIII: Hearing: Normal
CN IX/X: Speech & swallow: Normal, Position of Uvula: Midline
CN XI: Shoulder shrug: Symmetric
CN XII: Tongue protrusion: Midline
Sensory:
Light touch: Intact in bilateral upper and lower extremities
Pinprick:
Proprioception:
Temperature:
Reflexes:
Biceps: 2+ bilaterally
Brachioradialis: 2+ bilaterally
Triceps: 2+ bilaterally
Patellar: 2+ bilaterally
Achilles: 2+ bilaterally
Babinski: Down going bilaterally
Clonus: None
Philip: Negative bilaterally
Cerebellar: Dysmetria/Ataxia: unable to stand
Musculoskeletal:
Motor: (Manual muscle scale 0-5)
Muscle SA EF WE EE FF FA HF KE DF EHL PF
Right 5 5 5 5 5 5 5 5 5 5 5
Left 5 5 5 5 5 5 5 5 5 5 5
Tone: Normal in all extremities
Range of Motion: Passively within normal limits in all extremities
Lab Results
Diagnostic Results: as per HPI
Assessment
Plan
PM&R PT/OT to increase independence with ADLs, improve balance, coordination, endurance, strength, mobility, community reintegration, decreased burden of care on others and family education.
CVA: Secondary prophylaxis with aspirin, statin, and blood pressure control (SBP less than 180 and diastolic less than 100 to participate with therapy for ischemic stroke). Continue to monitor neurologic status.
Left/right nondominant hemiparesis: High risk for falls and sliding out of chair/bed. Safety reinforced.
- Avoid using affected arm to help lift or pull patient as this will cause trauma to the shoulder.
Left/Right Neglect: makes patient at increased risk for falls. Will need therapy to work on scanning of environment for safe navigation.
Dysphagia: speech evaluation, oral care protocol, chlorhexidine rinse after meals and HS, aspiration precautions. Advance diet as tolerated.
Dysarthria: speech evaluation
Aphasia: speech evaluation
Spasticity: Adjust medications as needed. Continue range of motion exercises and stretching program.
MS: Continue medications. Continue to monitor neurologic status.
Seizures: Continue Keppra monitor seizures, seizure precautions
Peripheral polyneuropathy: Patient with a stocking and glove polyneuropathy distribution pattern. There are many potential etiologies of this type of neuropathy. Suggest getting an EMG/nerve conduction study which can be done inpatient or if
necessary as an outpatient. This will help limit the differential diagnosis. Common etiologies include diabetes, alcohol use, B12, thyroid disorder, autoimmune concerns. It is reasonable to check a B12, TSH, and hemoglobin A1c to start. Patient at
high risk of falling with subsequent significant neuropathy.
Hard of hearing: Patient is having difficulty with hearing and we discussed the need for hearing aids to properly engage in conversations and not be dismissed by others because not able to understand what they're saying. This can lead to isolation,
depression and cognitive decline. Suggest ENT/audiology evaluation.
Falls: Likely multifactorial
1. Parkinson's disease: Medications adjusted
2. Peripheral polyneuropathy: Further evaluate with possible EMG/nerve conduction study and lab testing with neurology as outpatient. Possible ulnar neuropathy versus radiculopathy with decreased sensation in the fifth digit. TSH normal, B12 low
normal added B12 and multivitamin.
3. Alcohol use: Discussed alcohol cessation with patient as this will cause increase concern with balance.
4. Vitamin D deficiency: weekly replacement Vitamin D2.
5. Cervical spinal stenosis: MRI cancelled by neurology, not further investigated at this time.
6. Check orthostatics.
Liver or Renal Transplant: Transplant team is following. Continue immunosuppressive and prophylactic therapies (prednisone, CellCept, Bactrim, valganciclovir, fluconazole, and Prograf). Monitor CBC, BMP, LFTs, magnesium, phosphorus, tacrolimus, on
Monday and . Monitor incision.
Status post bilateral TKA / /: Monitor incision, pain control, incision care per orthopedics, may shower, dressings can be removed postop day 7, alvina removed postop day 14. Maintain full range of motion.
Hip fracture: Monitor incision, pain control, hip precautions/incision care per orthopedics
Quadratus lumborum myofascial pain syndrome: Has significant reproducible myofascial pain over the quadratus lumborum region. Likely an overuse phenomenon. Suggest heat on a routine basis, massage, cyclobenzaprine every 8 hours starting at 5 mg with
first dose at night and progressing up to 10 mg every 8 hours as needed. Physical therapy evaluation for quadratus lumborum stretching with use of modalities such as ice, heat, or massage. Reviewed need for consistent interventions to help expedite
the recovery process. Lidocaine patch or Kenny-navarro like cream to to be placed over left lumbar region. Stretches to help with mobility demonstrated.
- Stop opioids as they are not helping and can cause further sedation.
- Proper bed positioning discussed with patient, currently slumped down in bed with no lower back support. Discussed with nursing.
Vertebral fracture: Has new vertebral fracture on . Current pain seems related to . No decreased light touch in lower extremities, lower extremity strength is good. Does not appear to be a neurologic concern in the legs.
- Tramadol 50- 100 mg Q6H PRN
- Tylenol 1,000 mg a Q8H
- NSAIDs if no renal or stomach concerns
- Lidocaine patch
- Try ice to the area to help break up muscle spasm and decrease inflammation.
- No heavy lifting
- Continue physical therapy to help with core strengthening.
- DEXA scan with her primary care provider and consider bisphosphonate if warranted with PCP or endocrinology.
- There are other options if goes from an acute to a chronic pain state.
- Can consider Calcitonin in future.
- Vertebroplasty
Transtibial Amputation: Monitor incision, edema control with KAM wrap, pain control, desensitization, Phantom limb pain education, maintain full ROM at hip and knee.
HTN: continue medications, monitor closely
HLD: Statin
Coronary artery disease : Aspirin, statin, beta-chris
STEMI S/P CABG x 4: Sternal precautions. Aspirin, statin, Xarelto, BP control. Monitor incision, pain control.
Atrial fibrillation: Continue anticoagulation and rate control medications.
CHF: EF %, beta chris, monitor fluid status
DM II: Accu-Cheks, insulin sliding scale, metformin, aspart, lantus.
Hypothyroidism: levothyroxine
COPD: Continue nebulizer treatments DuoNeb and Pulmicort. On tapering dose of steroids.
JENNIFER: possible CPAP use.
Pneumonia: Completed course of antibiotics. Guaifenesin for thick secretions. Has trach with Passy-Carlene valve and deflated cuff. Wean trach as able.
Acute COVID-19 bilateral pneumonia with acute hypoxic respiratory failure: Monitor SAO2 during mobility and exertion, to determine O2 needs during activities. Still requiring increased O2 needs with PT.
- Incentive spirometry, neb treatments, O2 taper as able, Steroid taper, guaifenesin as needed, Tessalon Perles as needed.
- Pulmonary rehab program.
- Has air hunger anxiety. Educated patient on breathing through the nose versus mouth.
- May do better with a face mask.
- Must learn to pace at slow rate of activity for known safe distances and slowly bring up activity tolerance
- Does not have the awareness to do this at this time, and needs frequent education and reinforcement.
- Should not push decreasing oxygen levels down, use higher levels as needed to get stronger. If pushes the oxygen limit then she will be oxygen hungry which will drive up nxiety which will possibly increase respiratory rate.
- Would avoid Ativan as it can make breathing worse.
Acute lower extremity DVT: Continue on Coumadin with goal INR 2-3. Currently therapeutic and will check levels daily for now.
Bilateral lower extremity edema: Consider TEDS as able. Increased fluid will cause more force requirement to move lower extremities which requires more strength and increases fatigue.
Pressure ulcers: Vitamin C, zinc, multivitamin. Weight shifts in wheelchair and bed. Roho cushion. Pressure-relief boots. Lotrimin to fungal rash over buttocks and inguinal region.
Anemia: Likely multifactorial. Continue to monitor.
Thrombocytopenia: Continue to monitor. With platelets less than 50,000 recommend keeping therapies to bedside. If platelets less than 20,000 will use further caution with activity levels and hold therapy for platelets less than 10,000.
Psych: Psychology consult. Monitor mood, adjust medications as needed.
Skin: monitor for pressure sores/rashes/lesions.
Pain: acetaminophen or oxycodone as needed.
Bowel: Colace and Senna, PRN bisacodyl.
Bladder: Time void, PVRs, PRN straight cath.
Alcohol Abuse: Alcohol cessation education, offering of outpatient alcohol abuse program
Tobacco Abuse: Smoking cessation counseling. Need to find out why smoking whether it is nicotine withdrawal, habit, or oral fixation.
GI Prophylaxis: Pantoprazole
DVT Prophylaxis: Note chemoprophylaxis (or if not SCDs and when chemotherapy prophylaxis can start).
Pulmonary: Incentive spirometry
Morbid obesity: Continue to certified genetic counselor patient about diet adjustments to control obesity. Body habitus and increased force to move body and extremities causes further difficulty with functional tasks.
Safety: Continue to reinforce assistance with all transfers.
Code Status: Full code or DNR
Dispo (date/plan/equipment needs): Home with family care. Social history reviewed.
Functional and Medical Goals: Modified Independent with ADL�s, ambulation, transfers
SUMMARY
Things that must be addressed in Hospital prior to discharge:
1. Please consult PT/OT.
2. Please consult speech.
3. Patient must be stable on oral pain medications.
4. Only Pigtail chest tubes are possible.
5. Blood pressure must be less than 180 systolic and 100 diastolic for 24 hours before being stable for transfer to SNF/acute rehab.
6. Please give blood pressure parameters.
7. Please comment on ROM, bracing and weight bearing precautions.
8. Please comment on dvt chemoprophylaxis restrictions.
Discharge Destination: Home
Summary of recommendations:
- Discharge Destination: Home
Why could this patients care needs not be met at outpatient or home care?
What barriers for discharge are there?
Will continue to follow patient.
Will sign off, please re-consult if needed.
Thank you for allowing me to care for your patient. Please contact me with any questions or concerns.
This note was dictated using a voice recognition system. Please excuse any typographical errors from tax manager public. If you believe there are any discrepancies, please notify our office.

Documented by User: Alexandre Napoles MD 06/29/24 01:23
Consultation - Medical
-
Referring Provider: Francisco Guy
Chief Complaint: CVA
History of Present Illness: Mr. Samuel Sanchez is a 63yo M pmh HFrEF (EF 10-15%), CAD, HTN, HLD, IDDM, CKD stage 3a admitted for a TIA. Arrived to ED 06/18 for slurred speech and coordination problems. Recently admitted at [facility] 2
weeks prior for a CHF exacerbation and LV thrombus. Placed on coumadin. Supratherapeutic INR on admission, so warfarin was held. While there, he experienced episodes of confusion while on his chronic ambien. Ambien has been held during this
hospitalization and pt started on melatonin with his home gabapentin. No evidence of seizure on EEG, but background slowing present. Carotid u/s <50% stenosis b/l. Pt found to have hypervolemic hyponatremia secondary to CHF exacerbation and GHAZAL on
CDK3. Additionally, pt found to have choledocholithiasis with leukocytosis and was started on cipro/flagyl and a PPI on 06/19. Fell on 06/20. 06/20 TTE positive for EF 15-20% w organized thrombus in the LV apex measuring 1.5 x 1.2 cm and small
pericardial effusion. INR therapeutic on 06/21, so pt Dr. Murry peformed ERCP w a biliary sphincterotomy and biliary tree sweep. Blood cx positive for MSSA, so abx changed to unasyn by Dr. Juan. Dr. Orosco consulted 06/23 for wet gangrene of left
hallux with infection. 06/23 Dr. Kirkland performed Left partial first ray amputation and multi plantar incisional debridement. Post procedure, abx changed to meropenem. 06/24 CLAIR positive for EF 10-15% w small pericardial effusion w/o LV thrombus.
06/24 Dr. Orosco attempted LLE arteriogram, but aborted due to cardiac arrest. Subsequently, pt developed an episode of HTN w vtach followed by polymorphic ventricular tachycardia and vfib. Ultimately, pt intubated and transferred to ICU on multiple
pressors. Tube feeding initiated 06/26. 06/26 EEG positive for diffuse cortical dysfunction without focal abnormality. Transfused 4 units pRBCs. Pt extubated 06/27. 06/28 speech and swallow recommendations include NPO, medications via non-oral means,
and video swallow study. Today, pt is obtunded and unable to communicate.
Past Medical History: HFrEF (EF 10-15%), CAD, PAD, IDDM, HTN, HLD, CKD stage 3a. LV thrombus 06/06 - 06/12/2024 at [facility]
Procedure History: Left partial first ray amputation and multi plantar incisional debridement, Arthroscopic knee surgery right 3 times left 2 times, renal calculi removal, penile implant, back surgery, cataract extraction with detached retina and
lens implant left eye
Family History: not pertinent
Social History:
Functional Level Premorbidly: Independent with all activities
Functional Level Currently: N.p.o., not safe to participate with PT or OT at this time.
Tobacco: dip
Alcohol: Denies
Drug use: Denies
Lives with: , son
24-huor assistance available: yes
Number of floors:1
# steps to enter: 2 with left rail
Driving: yes
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
Allergies
Allergy/AdvReac Type Severity Reaction Status Date / Time
No Known Allergies Allergy Verified 06/18/24 16:01
Home Medications
aspirin 81 mg tablet,delayed release 81 mg PO DAILY Heart disease 07/06/09
zolpidem 10 mg tablet 10 mg PO HS Sleep 04/22/19
furosemide 40 mg tablet 40 mg PO BID Fluid retention/Swelling 05/19/19
gabapentin 600 mg tablet (Neurontin) 600 mg PO HS Neurological Condition 07/09/20
carvedilol 12.5 mg tablet 12.5 mg PO BID Heart Failure ##30 07/14/20
albuterol sulfate 90 mcg/actuation aerosol inhaler 2 puff inhalation R Q6HPRN PRN sob 06/18/24
atorvastatin 80 mg tablet 80 mg PO DAILY High Cholesterol 06/18/24
dapagliflozin propanediol 10 mg tablet (Farxiga) 10 mg PO DAILY Heart Disease/Condition 06/18/24
hydralazine 25 mg tablet 25 mg PO TID Blood Pressure 06/18/24
insulin detemir U-100 100 unit/mL (3 mL) subcutaneous pen (Levemir FlexTouch U-100 Insulin) 20 unit SC BID@0800,1700 Diabetes 06/18/24
insulin lispro 100 unit/mL subcutaneous pen (Humalog KwikPen (U-100) Insulin) 5 unit SC AC Diabetes 06/18/24
magnesium oxide 400 mg PO BID Electrolyte Repletion 06/18/24
sacubitril 97 mg-valsartan 103 mg tablet (Entresto) 1 tab PO BID Heart Disease/Condition 06/18/24
spironolactone 25 mg tablet 25 mg PO QPM Heart Disease/Condition 06/18/24
warfarin 7.5 mg tablet 5 mg PO QPM Blood Clot Prevention/Tx 06/18/24
Review of Systems: Unable to perform at this time due to patient's altered mental status.
Vitals:
BP 144/84
HR 82
RR 16
SpO2 96%
Physical Exam:
General Appearance/Observation: Well-developed, well-nourished male in acute distress.
Pain/Comfort Assessment: Does not appear to be in pain
Integumentary/Operative Site: No lesions do not noted during course of exam. Has IV access site
Pressure Ulcer Evaluation: absent over heels.
Eyes: Conjunctiva/Lids: normal Pupils: pupils equal round and reactive to light
Ears/Nose/Throat: oral mucosa moist, throat clear. Lips/Teeth/Gums: normal
Neck: No muscle spasm or tenderness
Cardiovascular: Heart: regular, murmur
Pulses: dorsalis pedis 2+ bilaterally
Respiratory: Respiratory Effort/Chest Expansion: Decreased, not following commands to take deep breaths auscultation: Scattered rhonchi
Gastrointestinal: abdomen not tender, no distension, normal abdominal bowel sounds
x Nasogastric tube
Genitourinary: No Orosco
Rectal Exam: Deferred
Extremities: Edema: None Cyanosis: None Trophic changes: None
Neurology Exam: Unable to assess orientation, memory, speech with decreased cognition. Patient does make some random sounds. Does open eyes and respond to stimuli.
Cranial Nerves:
CNII: Pupillary light reflex: Intact
CN VII: Facial movement: Symmetric heart
Sensory: Unable to assess
Reflexes: Deferred, patient restless and getting agitated
Musculoskeletal: Patient moving right upper and lower extremity, decreased movement on the left but does not follow commands
Tone: Appears normal
Range of Motion: Deferred with agitation
-Exam updated with Dr. Napoles findings
Lab Results
PT 18.8 Sec (11.4-14.6) H 06/27/24 03:27
INR 1.52 06/27/24 03:27
APTT 86.8 Sec (23.4-35.0) H 06/28/24 03:26
Total Bilirubin 1.8 mg/dl (0.2-1.3) H 06/27/24 03:27
Direct Bilirubin 0.6 mg/dl (0.0-0.4) H 06/27/24 03:27
AST 36 U/L (17-59) 06/27/24 03:27
ALT 30 U/L (0-50) 06/27/24 03:27
Alkaline Phosphatase 187 U/L (38-126) H 06/27/24 03:27
Total Protein 4.8 g/dl (6.3-8.2) L 06/27/24 03:27
Albumin 2.1 g/dl (3.5-5.0) L 06/27/24 03:27
Diagnostic Results: as per HPI
Assessment
63yo M pmh HFrEF (EF 10-15%), CAD, HTN, HLD, IDDM, CKD stage 3a admitted for confusion with concern for TIA, hypervolemic hyponatremia secondary to CHF exacerbation and GHAZAL on CDK3, choledocholithiasis s/p antibiotics and ERCP w a biliary
sphincterotomy and biliary tree sweep, bacteremia with MSSA, wet gangrene of left hallux with infection s/p 06/23 left partial first ray amputation and multi plantar incisional debridement, cardiac arrest with polymorphic ventricular tachycardia and
vfib, acute respiratory failure requiring intubation, significant anemia requiring 4 units of PRBCs and now with delirium with concern of a anoxia following resuscitation limiting ability to participate with physical patient therapy, currently
n.p.o. plan for possible swallow study.
Plan
PM&R: PT/OT to increase independence with ADLs, improve balance, coordination, endurance, strength, mobility, community reintegration, decreased burden of care on others and family education.
Cognitive dysfunction: Differential is broad, could be a anoxic injury following cardiac resuscitation, CVA, medications, infection, ICU delirium. Continue to monitor, spoke with nursing and neurology asked to reassess
-Trazodone could be less sedating than Seroquel, try to limit sedating medications.
Dysphagia: speech evaluation, oral care protocol, chlorhexidine rinse 3 times daily and HS, aspiration precautions. Currently n.p.o., may need swallow study when able
PEA cardiac arrest: Has severe heart failure with the risk of sudden cardiac with low ejection fraction. To consider LifeVest versus implantable defibrillator. On amiodarone, further management per cardiology and primary team
Severe nonischemic cardiomyopathy with LV thrombus: EF 10-15% management per cardiology, consider LifeVest or implantable defibrillator, Farxiga
RLL Aspiration pneumonia vs Pneumonitis: Meropenem
HTN: Monitor blood pressure adjust medications
HLD: Statin
Foot gangrene with PVD, s/p Left Partial Ray amputation on 06/23: Management per podiatry
DM II: Accu-Cheks, insulin sliding scale, aspart, lantus.
Anemia: Required numerous transfusions, likely multifactorial. Continue to monitor. Consider stool samples.
Skin: monitor for pressure sores/rashes/lesions. Consider bilateral Multi-Podus boots.
Pain: acetaminophen as needed.
Bowel: Currently n.p.o., suppository as necessary.
Bladder: Monitor urine output
GI Prophylaxis: Pantoprazole
DVT Prophylaxis: Mechanical and heparin.
Pulmonary: Incentive spirometry
Safety: Continue to reinforce assistance with all transfers.
Code Status: Full code
Dispo (date/plan/equipment needs): Home with family care. Social history reviewed.
Functional and Medical Goals: Modified Independent with ADL�s, ambulation, transfers
Discharge Destination: To be determined. Patient too sick to make decision at this time. Potentially could benefit from acute rehab.
-Will need to have LifeVest or plantable defibrillator decided upon with ejection fraction 10-15% and high risk of sudden cardiac .
-Consider bilateral Multi-Podus boots
-Consider stool occult
-Follow-up evaluation with podiatry
-Try to limit sedating medications. Trazodone can be helpful and less sedating than Seroquel.
-Will need mechanism for hydration and nutrition to be decided prior to transfer to rehab.
-Continue shifting in bed.
Attending Statement:
I saw and examined the patient 06/28/[address] Jeimy Shah. Changed residents HPI as needed. Exam reflects my exam, plan written by me. Reviewed care plan with patient, therapy, nursing, and physician therapy administrative assistant. I agree with the above
subjective and physical exam, and plan as documented by GERMAIN Cortez with adjustments made as necessary. A total of 80nminutes were spent with the patient preparing for the evaluation, obtaining history, performing examination and evaluation,
counseling, data review, case management, care coordination, line ordering clinician, and EMR documentation.
Thank you for allowing me to care for your patient. Please contact me with any questions or concerns.
[2024-06-28] MEDS: COREG 3.125 MG PO (10:27)
--- NOTE | 2024-06-28 10:35 | W.PN.ID1 ---
Date of Service
Date of Service: June 28, 2024
Today's Communication
- continue meropenem day 7
Assessment / Plan
MSSA Bacteremia
Possible endocarditis
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
PEA/v fib arrest 06/24
CVA
Dm2 uncontrolled
- 06/21 and 06/22 blood cultures remain no growth to date
- TTE without vegetations, plan empiric treatment for possible endocarditis
- agree with repeat TTE when feasible, I would recommend AICD placement after completion of treatment for possible endocarditis
- order for MRI foot from 06/23 cancelled - when medically stable will rediscuss with Dr Main podiatry
- continue meropenem day 7
- will require a course of home IV antibiotics with cefazolin, transition pending further management of foot infection
Choledocholithiasis s/p ERCP with 06/21
- has completed an adequate course, remains on meropenem as above for L great toe gangrene with possible need for further intervention
Chief Complaint
-: Other (wet gangrene, mssa bacteremia, possible endocarditis)
Subjective / Review of Systems
afebrile
bp stable off of pressors
extubated yesterday now on NC
failed speech evaluation
Vital Signs / Physical Exam
Vital Signs
Vital Signs
Temp Pulse Resp BP Pulse Ox
98.6 F 79 14 149/89 95
06/28/24 07:25 06/28/24 10:27 06/28/24 08:00 06/28/24 10:27 06/28/24 08:30
Physical Exam
Constitutional: No Acute Distress and Chronically Ill
Cardiovascular: Regular Rate and S1/S2; Negative Murmur or Rub
Pulmonary: Clear and Symmetric; Negative Wheezes or Rales
Gastrointestinal: Soft, Non Tender, Non Distended and Normal Bowel Sounds
Skin: Warm and Dry; Negative Rash or Jaundice
Wound: Other (dressing clean, dry, intact)
Neurological: Awake, Alert and Other (gaze tracking, moving his head)
Psychological: Calm
Objective Data
Lab Data
Lab Results
06/28/24 03:26
PT 18.8 Sec (11.4-14.6) H 06/27/24 03:27
INR 1.52 06/27/24 03:27
APTT 86.8 Sec (23.4-35.0) H 06/28/24 03:26
Estimated Creat Clear 82 ml/min 06/28/24 03:26
Lactic Acid 1.0 mmol/L (0.7-2.0) 06/26/24 08:48
Total Bilirubin 1.8 mg/dl (0.2-1.3) H 06/27/24 03:27
AST 36 U/L (17-59) 06/27/24 03:27
ALT 30 U/L (0-50) 06/27/24 03:27
Alkaline Phosphatase 187 U/L (38-126) H 06/27/24 03:27
Most recent labs reviewed.
Micro Results:
06/22/24 13:23 Blood Culture - Final
Blood/Venous No Growth - Final Report
06/21/24 09:33 Blood Culture - Final
Blood/Venous No Growth - Final Report
06/22/24 14:36 Wound Culture - Final
Abscess S aureus-Methicillin Sensitive
Gram Stain - Final
06/20/24 00:42 Blood Culture - Final
Blood/Venous S aureus-Methicillin Sensitive
Gram Stain - Final
06/20/24 01:59 Blood Culture - Final
Blood/Venous S aureus-Methicillin Sensitive
Gram Stain - Final
06/18/24 16:51 Urine Culture - Final
Urine NO GROWTH
06/18/24 16:11 Influenza Types A & B (HUEBR) - Final
Nasal Swab Negative for Influenza A & B, NAAT
Negative results must be combined with clinical observations
and patient history.
Nucleic Acid Amplification test (NAAT)performed on the
[employer] platform.
--- NOTE | 2024-06-28 10:42 | W.PN.CARDCBS ---
Today's Communication / Plan
-
Mental status is worse today. Rhythm remains stable. Continue amiodarone. Will increase Coreg to 6.25 mg p.o. twice daily.
He is diuresing well. Would continue IV Lasix for another 24 hours. Creatinine down to 1.1.
May need repeat head CT to follow.
Hemoglobin is down to 6.7. He has required transfusions. From a cardiac standpoint repeat echo did not have an LV thrombus. Would be okay to hold heparin for 24 hours if needed.
Will likely need eventual cath and possible ICD at some point. Will await his mental status follow-up before these decisions are made.
Impression / Plan
-
PCP: Dr. Sherwood
Cardiology: Dr. Ny, last seen 06/2022
Impression:
Intraoperative PEA/ventricular fibrillation arrest 06/24/2024
Admitted with confusion and acute HFrEF 06/18/24
Tiny nonhemorrhagic acute/subacute infarct in the right periventricular white matter/centrum semiovale region by MRI 06/19/2024
Recent admission to [facility] for acute HF and foot wound 06/06/24 until 06/12/24
Hypotension
Acute HFrEF
CM EF 15% by echo at [place] 06/07/24
h/o improved NICM EF 25% by echo 03/2018 and then improved to 40% by echo 06/2022
Nonobstructive CAD by cath 2017
Medication noncompliance
Newly diagnosed LV thrombus
1.5 x 1.2 cm LV apical clot on echo at [place] 06/07/24
Chronic warfarin managed by [facility]
started for LV clot 06/07/24
Supratherapeutic INR on admission
Hyponatremia
GHAZAL on CKD 3a
Elevated LFTs
Chews tobacco
Unwitnessed fall
Echo 05/30/2024: [facility] study, EF 15 to 20%, severe global hypokinesis and septal dyskinesis, small and organized thrombus in the LV apex measuring 1.5 x 1.2 cm, grade 3 diastolic dysfunction, at least mildly dilated RV with reduced
systolic function, mild to moderate MR, mild pericardial effusion seen posteriorly without evidence of tamponade
Echo 06/20/24 with IV echo contrast: LV ejection fraction severely reduced, 15-20% with global hypokinesis. Dilated, hypokinetic right ventricle. Biatrial dilatation. Mild MR. Mild to moderate TR. Estimated pulmonary artery systolic pressure
50-55 mmHg. Small pericardial effusion without evidence of hemodynamic compromise. No LV apical thrombus
Plan:
Admitted with change in mental status and found to have small nonhemorrhagic right hemispheric CVA, recently hospitalized with LV thrombus and acute and chronic HFrEF with left lower extremity wound infection. Also with choledocholithiasis, status
post ERCP and sphincterotomy with stone extraction June 21. Underwent debridement of left foot wound 317, received treatment for acute HFrEF during hospital stay, went for right lower extremity percutaneous revascularization procedure today and
upon induction of anesthesia had pulseless electrical activity degenerating into VF requiring ACLS and ultimately return of spontaneous circulation. Now intubated on pressors in ICU.
PEA/ventricular fibrillation arrest: Rhythm is stable. Continue amiodarone no significant ventricular tachycardia. His temperature is now warmed. Mental status seems to be worse today. He has some delirium. He does have MSSA bacteremia.
Discussed case with infectious disease and will need to decide on risk/benefit of ICD versus risk of infection. Repeat blood cultures are negative.
Acute on chronic HFrEF: Weight is down he is now off pressors. Increase Coreg to 6.25 twice daily. Continue Lasix 40 mg IV daily. Creatinine is overall improved and down to 1.1. Eventually restart Entresto and spironolactone when blood pressure
continues to improve.
PAD, foot wound, methicillin sensitive Staph aureus bacteremia: Continue meropenem, ? Endovascular infection
Recent right periventricular nonhemorrhagic CVA: Unclear whether cardioembolic,
LV thrombus: Not seen on most recent echo, he remains on IV heparin. On repeat echo we did not see an LV thrombus. I would be okay with holding heparin for 24 hours with his hemoglobin of 6.7. Continue to follow.
Choledocholithiasis: ERCP June 21 with sphincterotomy and stone extraction
GHAZAL: Creatinine relatively stable at 1.1 despite PEA/VF arrest, will continue to follow
Toxic metabolic encephalopathy on admission/possible CVA. Mental status seems worse today. Consider repeat scan of brain
Discussed with nursing and heel burnisher.
Critical care time 34 minutes
HPI: Patient came to [facility] from home yesterday with confusion and garbled speech and was admitted for acute HF and cardiology has been consulted. Patient is a poor historian and gave me permission to call his daughter. Also reviewed 67 pages of
records from recent [place] admission. Patient had NICM diagnosed in 2017 and with GDMT his EF improved to 40% by last echo at in 06/2022. Patient then stopped coming to cardiology appts at , but reportedly did not start following elsewhere.
Patient then retired and stopped taking his medications on a regular schedule despite reminders from family. Patient started with LE wounds 02/2024 and following with wound care center and seemed to be improving. Patient then started with a cough
and saw his PCP 05/02/24 and lungs were clear and he was started on promethazine and albuterol. Patient was then admitted to [place] with SOB 06/06/24 and during that admission was found to have EF down to 15% and he had a new LV clot and was started
on warfarin. Patient was also d/c'd to home on Coreg, Entresto and spironolactone which are meds he had been on when he was last seen in the cardiology office in 2022. Patient was diuresed with Lasix IV and d/c'd to home on Lasix 40 mg PO BID.
Patient's daughter reports that patient was not taking meds at home and when [facility]N came to see him he had garbled speech and was sent to the ER.
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
Subjective
Date of Service: June 28, 2024
Less alert today. Denies pain. Hemoglobin down to 6.7 overnight. No clear bleeding.
Objective
Labs:
06/28/24 03:26
Labs
Hgb 7.0 g/dL (13.0-18.0) L 06/28/24 03:26
Hct 21.1 % (39.0-52.0) L 06/28/24 03:26
Plt Count 291 10^3/uL (130-400) 06/28/24 03:26
PT 18.8 Sec (11.4-14.6) H 06/27/24 03:27
INR 1.52 06/27/24 03:27
APTT 86.8 Sec (23.4-35.0) H 06/28/24 03:26
Sodium 136 mmol/L (135-145) 06/28/24 03:26
Potassium 4.4 mmol/L (3.5-5.1) 06/28/24 03:26
BUN 56 mg/dl (9-20) H 06/28/24 03:26
Creatinine 1.1 mg/dL (0.7-1.3) 06/28/24 03:26
Glucose 163 mg/dl (70-99) H 06/28/24 03:26
Vital Signs and I&O:
Vital Signs
Temp Pulse Resp BP Pulse Ox
98.6 F 79 14 149/89 95
06/28/24 07:25 06/28/24 10:27 06/28/24 08:00 06/28/24 10:27 06/28/24 08:30
Vital Signs
Temp Pulse Resp BP Pulse Ox
98.6 F 79 14 149/89 95
06/28/24 07:25 06/28/24 10:27 06/28/24 08:00 06/28/24 10:27 06/28/24 08:30
Intake & Output
06/26/24 06/27/24 06/28/24 06/29/24
06:59 06:59 06:59 06:59
Intake Total 859.2 / 895.2 2168.5 / 2204.5 1024 / 1038 56 / 56
Output Total 1515 / 1555 2375 / 2475 1984 / 238 850 / 850
Balance -655.8 / -659.8 -206.5 / -270.5 -961 / -1347 -794 / -794
Physical Exam
Physical Exam
GEN: No distress, sleepy
HEENT: supple, anicteric, mmm
LUNGS: scatt rhonchi
CV: Reg, S1/S2, 1/6 syst LSB, no gallop
ABD: soft, BS+, NT/ND
EXT: No edema
NEURO: not following commands
SKIN: No rash
--- NOTE | 2024-06-28 10:42 | PTOTSP ---
Dysphagia Evaluation
Patient inappropriate for oral PO at this time due to current cognitive status with guarding behaviors during oral care, poor awareness of feeding related tasks, and wet vocal quality at rest concerning for reduced secretion management.
Per chart review, concern for delirium and anoxic encephalopathy are present s/p PEA arrest 06/24. Patient w/ CVA (tiny nonhemorrhagic acute/subacute infarct in the right periventricular white matter/centrum semiovale region) and cognitive
impairments prior to this event. Full speech/language evaluation limited by current delirium/cognitive status. Communication severely impaired.
Recommend:
1. NPO
2. Medications via non-oral means
3. Oral care 3-5x daily as tolerated
4. Dysphagia tx at the acute care level to re-assess swallowing and determine if/when video swallow study may be appropriate
5. Full speech/language and cognitive evaluation when able/appropriate.
--- NOTE | 2024-06-28 10:57 | W.PN.UPDATE ---
Update Note
Progress Note Update
Patient extubated
Awake and alert but not oriented
Left foot dressing clean/dry
Will follow along and decide if/when can revisit possible arteriogram and additional intervention on foot.
Continue heparin drip
Call with questions/concerns
Bharathi Orosco III, MD
[facility] Vascular Surgery
[phone] ([phone])
--- NOTE | 2024-06-28 11:02 | CM ---
Addendum entered by Eddie Isaac 06/28/24 14:30:
CM received a phone call from JANET renal case manager Fiordaliza who assigned to assist with discharge planning. [phone]. Pt's clinical provided to renal case manager Fiordaliza
Original Note:
CM following re: discharge planning.
Discussed in Rounds, reviewed pt's chart, met with pt. Pt's spouse and 2 daughters at bedside. Pt's spouse and 2 daughters participated in Rounds meeting.
Per ST, pt inappropriate for oral PO at this time, continue NPO, continue supportive care.
PT and OT will evaluate the pt when clinically appropriate to determine a level of care at discharge.
D/C plan: original plan was [facility]. [facility] teacher following.
CM will follow with discharge plan updates as hospitalization progresses
[2024-06-28 11:34] LABS: Hematocrit 22.8 % (39.0-52.0); Hemoglobin 7.8 g/dL (13.0-18.0)
[2024-06-28 11:57] LABS: Glucose - Point of Care 169 mg/dl (70-99)
[2024-06-28] MEDS: NOVOLOG FLEXPEN 6 UNITS SC ×3 (12:14→23:54)
--- NOTE | 2024-06-28 12:27 | W.PN.INTV ---
Today's Communication / Plan
Recommendations
-Speech therapy eval, continued n.p.o.
-Start tube feeding
-Await neurology recommendations if follow-up imaging indicated
Assessment
-
63 old gentleman with known history of LV EF 10 to 15% and pulmonary hypertension was scheduled for arteriogram in the OR. Post induction with propofol, patient developed progressive hypotension followed by a PEA arrest and CPR was started.
Subsequently patient developed ventricular tachycardia and at some point ventricular fibrillation requiring ongoing CPR and defibrillation. Eventually ROSC was achieved and patient was transferred to ICU, intubated and on mechanical ventilation.
Can Carrier consult was requested for further management. Prior to this event, patient has been in the hospital for a gangrenous right foot status post ray amputation and has been on meropenem for MSSA bacteremia with sepsis. Stays also
complicated by choledocholithiasis status post ERCP and stone retrieval.
last 24 hrs:
-Patient more awake, alert, extubated 06/27 to BiPAP and then subsequently nasal cannula
-Currently on heparin drip only, off Levophed and off insulin
-Hemoglobin at 7.8 this morning
-Electrolytes unremarkable
#1. Cardiac arrest with PEA followed by Ventricular Tachycardia followed by Polymorphic VT/V Fib
-Hypotension and PEA arrest post induction with Propofol. S/p 3 rounds of ACLS and 4 defibrillations followed by ROSC
-Successfully extubated 06/27
-Amiodarone to PO 200 mg bid
-Target K >4 and Mg >2
-Telemetry
-ECHO reviewed, EF 10-15% with Estimated PAP 62 mm
-Initial CT head negative for acute changes
-Targeted temperature management with goal to keep normothermia and avoid fever, completed
-Monitor electrolytes closely
-Target MAP 65
#2. Shock, cardiogenic and also vasoplegia post cardiac arrest
-Resolved, off Levophed now
-Known h/o LV failure and Severe Pulmonary HTN
-Off Vasopressin
-Continue Meropenem
#3. Severe non-ischemic cardiomyopathy with EF 10-15% with Pulmonary HTN (62mm) with LV Thrombus
-Cardiology service on case
-Vasopressors as needed
-Monitor I/O closely, -1 ltr
-Continue Heparin drip
-Continue Lasix IV daily
-Labs in AM
#4. RLL Aspiration pneumonia vs Pneumonitis
-Continue Meropenem
-CXR improving
#5. 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
-ID service on case. Bacteremia has since resolved
-Podiatry service and Vascular service on case, likely will definitive treatment in coming days/weeks
-Heparin to be continued for now per Vascular Surgery for concern of severe PVD
#6. Concern for ischemic/Anoxic encephalopathy
-Patient more awake, alert and successfully extubated on 06/26
-Brief eye contact today, otherwise no meaningful communication
-?Delirium vs residual anoxic injury. Favor delirium considering fluctuating course
-Stay off sedation, off Buspirone. Nightly Seroquel 12.5 mg started last night.
-Neurology service on case
#7. DM
-Insulin transitioned to s.c.
GI Prophylaxis: IV PPI
Critical Care time 32 mins -- The patient is admitted for acute critical illness for the treatment of vital organ failure and/or prevention of further life-threatening conditions. Total care includes time spent in review of history, physical exam,
medications, hemodynamic/ventilator parameters, laboratory data, imaging and discussion with house staff, pharmacy, respiratory therapy, towerman, and nursing.
Data:
ECHO 06/2024: Normal left ventricular chamber size. Severely reduced left ventricular
systolic function. Mild concentric left ventricular hypertrophy. Severe global
hypokinesis with possible inferior and apical akinesis. Left ventricular
ejection fraction is 10-15 % by visual estimate.
Mitral valve opens normally. Thickened mitral valve leaflets. Mitral annular
calcification. Mild mitral regurgitation.
Moderately dilated left atrium.
Tricuspid valve opens normally. Moderate tricuspid regurgitation. Estimated
pulmonary artery pressure of 62 mmHg assuming a right atrial pressure of 3
mmHg.
Moderately dilated right atrium.
Right ventricle appears mildly dilated and hypokinetic.
Small pericardial effusion without evidence of hemodynamic compromise.
Since echocardiogram 06/20/2024, there is no significant change.
CXR 06/24/2024
Endotracheal tube with tip in trachea above the salazar. No pneumothorax.
Patchy right lung opacity which could represent pneumonia/pneumonitis.
Nasogastric tube with tip in proximal stomach.
Subjective Dataa
Subjective Data
Date of Service:
Date of Service: June 28, 2024
Subjective:
Patient comfortably sitting in bed, on nasal cannula, in no acute distress. Protecting airways well.
Review of Systems
General: Unobtainable - Pat Unresp (Patient awake and alert however no meaningful communication to get a reliable review of system)
Objective Data
Data Reviewed
Vital Signs / I&O / Oxygen:
Vital Signs
Temp Pulse Resp BP Pulse Ox
97.7 F 90 19 143/82 96
06/28/24 11:03 06/28/24 10:30 06/28/24 10:30 06/28/24 10:30 06/28/24 10:30
Intake and Output
06/27/24 06/28/24 06/29/24
06:59 06:59 06:59
Intake Total 2168.5 / 2204.5 1024 / 1038 140 / 140
Output Total 2375 / 2475 1985 / 2385 900 / 900
Balance -206.5 / -270.5 -961 / -1347 -760 / -760
SaO2 [P-SIMV] 100
SaO2 [A/C] 100
SaO2 96
Nasal Cannula flow liters per 2
minute
Physical Exam
General: Comfortable
HEENT: Normocephalic
Cardiovascular: Regular Rhythm
Respiratory: Clear
GI: Soft and Non Distended
Neurology: Awake, Alert and Other (No meaningful communication)
Skin: Warm
Labs/Micro/Reports
Lab Data
06/28/24 11:22
06/28/24 03:26
Laboratory Results
06/27/24 06/27/24 06/28/24
15:40 20:56 03:26
APTT 95.6 H 105.3 H 86.8 H
Microbiology
06/22/24 13:23 Blood/Venous Blood Culture - Final
No Growth - Final Report
06/21/24 09:33 Blood/Venous Blood Culture - Final
No Growth - Final Report
--- NOTE | 2024-06-28 17:39 | W.PN.SURGUPD ---
Surgical Update
Surgical Update
s/p left partial first ray amputation 06/23. Patient now extubated
-Dressing changed at bedside. No active purulence or other signs of acute infection
-Continue abx per ID recs
-Strict NWB LLE
-Strict elevation to LLE
-Will defer left foot surgery pending medical stability and vascular surgery input to determine healing potential
-Nursing dressing changes per wound care orders, reinforce as needed
[2024-06-28 17:45] LABS: Glucose - Point of Care 132 mg/dl (70-99)
[2024-06-28] MEDS: NOVOLOG FLEXPEN-MODERATE RESISTANCE SC ×2 (17:56→23:52)
--- NOTE | 2024-06-28 18:08 | PTCARENOTE ---
patient was found with NG tube secure tape unattached and tube just hanging down not fully advanced. This RN readvanced the tube and secured it. stat abdominal Xray completed with the proper placement confirmation. MD made aware and soft restraints
applied on the patient's b/l wrists. turned and repositioned with HOB elevated 30 degrees. Vital tube feeds restarted @10 ml/hr. ongoing care and monitoring in place. family updated and education on restraints provided
--- NOTE | 2024-06-28 19:30 | PTCARENOTE ---
Patient received lying in bed, awake and appears alert. However, he does not answer yes/no questions, he does not follow commands, he is not producing meaningful speech. He is moaning with a guttural quality. He appears to focus gaze on RN but does
not track. Bilateral pupils equal at 4mm and briskly reactive. Noted with spontaneous movement of BUEs, pulling on bilateral soft wrist restraints. Restraints checked and retied, rechecked every 2 hours. Due to patient mentation, difficult to
perform NIH. S1S2 regular with positive murmur. SR on CM with 1st degree AVB and BBB, occasional PVC. BBS with UL clear anteriorly, bilateral bases diminished, resps. shallow. NGT via right nare taped in place. Tube feeding with Vital AF infusing at
10cc/hr. Placement verified, tolerating TF. Flushed per protocol and with meds. Heparin gtt via Right upper arm, good blood return. Left arm midline flushes easily with good blood return. Abdomen soft with good bowel sounds. Right groin with gauze
and tegaderm dressing CDI, right groin soft. Bilateral pedal pulses palpable. Bilateral hands and feet edema 2+. Penile edema 2+. Tongue is dry from mouth breathing. Oral care rendered every 4 hours and prn, mouth moisturizer. LLE elevated. SCD on
RLE. Repositioned every 2 hours. HOB up 30 degrees. Hourly rounding, within this RNs field of vision. Bed low and in locked position.
[2024-06-28] MEDS: COREG 6.25 MG TUBE (20:18)
[2024-06-28 20:24] LABS: Glucose - Point of Care 99 mg/dl (70-99)
[2024-06-28] MEDS: SEROQUEL 12.5 MG TUBE (21:58)
[2024-06-28] MEDS: HEPARIN 25000 UNITS/250 ML IV (23:56)
[2024-06-29] VITALS (51 sets, daily range): BP systolic 119–149; BP diastolic 65–89; BMI 26.7; BMI 27.0
--- NOTE | 2024-06-29 | PTCARENOTE ---
Patient appears to be sleeping comfortably when left undisturbed with eyes closed, lying still, respirations non labored. VSS. Rouses to tactile and verbal stimuli. No change in neuro assessment. Neurovascularly intact BLEs. Rest of physical
assessment essentially unchanged.
[2024-06-29 00:01] LABS: Glucose - Point of Care 87 mg/dl (70-99)
[2024-06-29] MEDS: STERILE WATER FOR INJECTION 10 ML IV ×4 (02:04→19:35)
[2024-06-29] MEDS: MERREM 500 MG IV ×4 (02:05→19:35)
--- NOTE | 2024-06-29 04:00 | PTCARENOTE ---
Addendum entered by Magalis Soto RN 06/29/24 07:22:
Physical assessment, neuro assessment unchanged. Low grade temp 100.5F. Room temp cooled and excess linens removed.
Original Note:
Complete cares rendered. CHG cloth bath. Face shaven. New condom cath donned. Wound care per flowsheet. Right anterior forearm with skin tear, xeroform and silicone border foam dressing donned. New border foam dressing right lateral calf. Am labs
drawn. Complete linen change. Patient appears uncomfortable and restless after cares. Dilaudid prn given. Oxygen at 2L/nc replaced due to sats dropping 86-88% on RA after pain meds.
[2024-06-29 05:28] LABS: APTT 148.8 Sec (23.4-35.0)
[2024-06-29] MEDS: DILAUDID 0.5 MG IV (05:32)
[2024-06-29 05:38] LABS: Blood Urea Nitrogen 53 mg/dl (9-20); Calcium 7.7 mg/dl (8.4-10.2); Carbon Dioxide 31 mmol/L (22-30); Chloride 106 mmol/L (98-107); Estimated Creatinine Clearance 82 ml/min; Glucose 49 mg/dl (70-99); Magnesium 2.2 mg/dl (1.6-2.3); Phosphorus 3.2 mg/dl (2.5-4.5); Sodium 139 mmol/L (135-145); eGFR > 60.00
--- NOTE | 2024-06-29 05:40 | PTCARENOTE ---
Patient am labs showed blood glucose 49. 1/2 amp D50 given per order. Hgb 6.3. Hillary WHELAN notified. New orders received. Am Novolog held. Order for one unit PRBC to transfuse. Awaiting to hear from blood bank. Repeat blood sugar after D50 is 94.
[2024-06-29] MEDS: DEXTROSE 50% SYRINGE 12.5 GRAMS IV (05:41)
[2024-06-29 05:44] LABS: Hematocrit 18.7 % (39.0-52.0); Hemoglobin 6.3 g/dL (13.0-18.0); Mean Corp Hgb Conc. 33.7 g/dL (33.0-37.0); Mean Corpuscular Hgb 29.2 pg (27.0-31.0); Mean Corpuscular Volume 86.6 fL (80.0-94.0); Platelet Count 297 10^3/uL (130-400); Red Blood Cell Count 2.16 10^6/uL (4.70-6.10); Red Cell Dist. Width 15.9 % (11.5-14.5)
[2024-06-29] MEDS: NOVOLOG FLEXPEN-MODERATE RESISTANCE SC ×2 (05:51→12:33)
[2024-06-29 06:14] LABS: Glucose - Point of Care 94 mg/dl (70-99)
--- NOTE | 2024-06-29 06:15 | PTCARENOTE ---
PTT 148.8. Heparin gtt on hold x 1 hour per protocol.
--- NOTE | 2024-06-29 07:02 | PTCARENOTE ---
Report given verbally to LIZ Tinsley assuming care. Questions answered.
--- NOTE | 2024-06-29 07:07 | W.PN.HOSP.TC ---
Today's Communication/Plan
-
monitor H&H transfuse prn Hgb<7.5
glycemic control
abx as per ID
diuresis rate and rhythm control as per Cardio
wound care as per Podiatry
cont ICU care
minimize sedating medications as feasible
restraints prn, maintain NGT pending clearance to resume oral diet
Assessment / Plan
Assessment / Plan
Physical Exam
GEN: no acute distress
HEENT: EOMI, MMM
LUNGS: CTA B/L without wheeze or rales
CV: Normal sinus rhythm no murmurs gallops
ABD: soft, BS+, NT, ND
EXT: left foot wound dressing clean dry intact
NEURO: Awake confused nonverbal
63M HFrEF CKD3 DM neuropathy HLD Nicotine dependence complicated hospital course with MSSA bacteremia, Left hallux gangrene, CVA suspect 2/2 cardiac emboli LV thrombus. Had partial amputation Lt Hallux Gangrene OR Podiatry 06/23. Patient was
planned for revascularization LLE 06/24 however developed PEA/Vfib arrest after anesthesia induction requiring ACLS. ROSC eventually achieved, patient was subsequently transferred to ICU intubated and requiring pressor support.
06/24/24 PEA/Vfib arrest following Anesthesia Induction
Acute Anoxic Encephalopathy vs Delirium
Underwent 3 rounds of ACLS and 4 defibrillations as per Cardio before ROSC was achieved
CT head appreciated no acute abn's
ECHO post-code appreciated EF 10-15% no significant change from prior ECHO 06/20/24
transferred to ICU intubated and on pressor support, poor neurologic recovery noted then, unresponsive off sedation
amiodarone gtt transitioned to PO via ngt
Neuro Cardio Weatherstrip Machine Operator shimon appreciated
weaned off pressor support
TTM completed, mental status improving
Extubated 06/27
Though stable respiratory status on NC, remains confused nonverbal unsafe to start oral diet, remains on tube feeds
minimize sedating medication use as possible
nonviolent restraints prn
Brain MRI 06/29/24 noted no acute abn though limited study d/t motion defects
# MSSA bacteremia
-Blood cultures from 06/20 positive for MSSA [correction to prior documentation]
-Suspect secondary to left hallux wet gangrene, which itself is suspected due to embolic effect
-Antibiotics switched to meropenem, cont as per ID
-Repeat blood cultures from 06/21 and 06/22 with no growth to date
-Treatment of underlying wet gangrene, appreciate guidance from ID and podiatry
-strict NWB and elevation LLE as per Podiatry
#Left hallux gangrene:
-Suspect secondary to embolism as also caused stroke
-wound cx pos MSSA
-Status post partial amputation in the OR with podiatry 06/23
-Planned for revascularization 06/24 aborted d/t PE/Vfib arrest as above
-Continue local wound care, empiric meropenem
-Continuing anticoagulation with IV heparin, warfarin held for surgical procedures
-Appreciate input from ID and podiatry
#reported hx LV thrombus
-Dx 2 weeks prior to arrival at [facility], suspect due to severely depressed LVEF
-Started on Coumadin anticoagulation 06/07/2024 for LV apical thrombus
-Coumadin on hold, on hep gtt for potential procedures
-given recent ECHO noted no thrombus, ok to hold hep gtt 24h as per cardio d/t anemia as below, per Weatherstrip Machine Operator discussion w/ Vascular recommended against holding however.
Progressive/persistent Anemia
- possible anemia of chronic disease vs blood loss from wound vs iatrogenic (less likely)
-monitor H&H and transfuse as necessary Hgb<7.5
-Iron panel appreciated anemia of chronic disease
-Protonix IV 40 mg BID
#CVA
- Suspect secondary to cardiac emboli
� Acute/subacute infarct in the right periventricular white matter/centrum semiovale region
� Anticoagulated with IV heparin drip
� Neurology consult appreciated
� Carotids unremarkable
- hold PT OT d/t critical illness requiring ICU care as above
#Acute on chronic HFrEF
EF 15-20%
-Cardio eval appreciated Lasix and Coreg restarted following wean off pressors.
-Farxiga resumed, cont
#Choledocholithiasis
-ERCP 06/21 with stone identified and removed and biliary sphincterotomy performed
-GI eval appreciated
#Transaminitis
� Secondary to choledocholithiasis, ERCP performed 06/21
� Resolving after ERCP
#GHAZAL
-Initial creat 1.6 since improved
-CKD III ruled out with resolution GHAZAL
-monitor
#DM 2/diabetic neuropathy
-Uncontrolled, hemoglobin A1c 10.8% this admission
-DM MONOGRAM MACHINE OPERATOR eval appreciated
-insulin gtt transitiioned to subq
-Farxiga resumed
-Gabapentin 600 mg daily on hold d/t Encephalopathy as above
#Mild Hyponatremia
monitor
#HLD
-Continue statin
#Nicotine dependence
DVT prophylaxis hep gtt
Full code
Guarded Prognosis
Total Critical Care Time__50___ minutes. I was immediately available to the patient and staff. I personally examined, reviewed labs, diagnostic images/reports, interpretations, treatment plans, discussed patient care with other providers, entered
orders as appropriate and documented the medical record.
Anticipated Discharge: > 48 hours
Subjective/Interval History
-
Date of Service: June 29, 2024
awake but confused nonverbal on non-violent restraints to protect NGT.
Objective Data
-
Labs:
Laboratory Results
06/28/24 06/29/24 06/29/24
17:34 04:42 12:00
WBC 18.0 H
Hgb Cancelled 6.3 L* Pending
Hct Cancelled 18.7 L* Pending
Plt Count 297
APTT 148.8 H
Sodium 139
Potassium 4.0
Chloride 106
Carbon Dioxide 31 H
BUN 53 H
Creatinine 1.1
Glucose 49 L*
Calcium 7.7 L
Vital Signs:
Vital Signs
Temp Pulse Resp BP Pulse Ox
100.5 F H 80 16 131/76 100
06/29/24 03:26 06/29/24 06:00 06/29/24 06:00 06/29/24 06:00 06/29/24 06:00
I&O
06/28/24 06/29/24 06/30/24
06:59 06:59 06:59
Intake Total 1024 / 1038 811 / 811
Output Total 1984 219 / 219
Balance -961 / -1347 -1379 / -1379
--- NOTE | 2024-06-29 07:35 | W.PN.INTV ---
Today's Communication / Plan
Recommendations
-Advance tube feeding as tolerated
-Follow-up MRI brain today, without contrast, in view of persistent encephalopathy
-Increase Protonix to twice daily with elevated BUN/creatinine ratio and recurrent anemia, ?GI blood loss
-Check for fecal occult blood
-Increase Senokot to 2 tablets twice a day
Assessment
-
63 old gentleman with known history of LV EF 10 to 15% and pulmonary hypertension was scheduled for arteriogram in the OR. Post induction with propofol, patient developed progressive hypotension followed by a PEA arrest and CPR was started.
Subsequently patient developed ventricular tachycardia and at some point ventricular fibrillation requiring ongoing CPR and defibrillation. Eventually ROSC was achieved and patient was transferred to ICU, intubated and on mechanical ventilation.
Electric Cell Tender consult was requested for further management. Prior to this event, patient has been in the hospital for a gangrenous right foot status post ray amputation and has been on meropenem for MSSA bacteremia with sepsis. Stays also
complicated by choledocholithiasis status post ERCP and stone retrieval.
last 24 hrs:
-Patient continues to be awake and alert however not oriented and no meaningful communication
-Currently on heparin drip only, off Levophed and off insulin
-Hemoglobin down to 6.3 this morning
-Electrolytes unremarkable
#1. Cardiac arrest with PEA followed by Ventricular Tachycardia followed by Polymorphic VT/V Fib
-Hypotension and PEA arrest post induction with Propofol. S/p 3 rounds of ACLS and 4 defibrillations followed by ROSC
-Successfully extubated 06/27
-Amiodarone to PO 200 mg bid
-Target K >4 and Mg >2
-Telemetry
-ECHO reviewed, EF 10-15% with Estimated PAP 62 mm
-Initial CT head negative for acute changes
-Targeted temperature management with goal to keep normothermia and avoid fever, completed
-Monitor electrolytes closely
-Target MAP 65
#2. Shock, cardiogenic and also vasoplegia post cardiac arrest
-Resolved, off Levophed now
-Known h/o LV failure and Severe Pulmonary HTN
-Off Vasopressin
-Continue Meropenem
#3. Severe non-ischemic cardiomyopathy with EF 10-15% with Pulmonary HTN (62mm) with LV Thrombus
-Cardiology service on case
-Vasopressors as needed
-Monitor I/O closely, -469 ml
-Continue Heparin drip
-Lasix switched to via NG tube
-Labs in AM
#4. RLL Aspiration pneumonia vs Pneumonitis
-Continue Meropenem
-CXR improving
#5. 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
-ID service on case. Bacteremia has since resolved
-Podiatry service and Vascular service on case, likely will need definitive treatment in coming days/weeks
-Heparin to be continued for now per Vascular Surgery for concern of severe PVD
#6. Concern for ischemic/Anoxic encephalopathy
-Patient more awake, alert and successfully extubated
-Brief eye contact today, otherwise no meaningful communication
-?Delirium vs residual anoxic injury. IN view of persisting poor mental status, MRI today
-Minimize sedation, off Buspirone. Nightly Seroquel 12.5 mg
-Neurology service on case
#7. DM
-Insulin transitioned to s.c.
-Advance tube feeding and lower supplemental insulin
#8. Anemia, suspect blood loss
-Intermittent oozing noted from the foot, status post dressing change
-Hematocrit dropped noted even without episodes of bleeding from the foot, elevated BUN/creatinine ratio,? Occult GI bleed
-Increase PPI to 40 twice daily
-Check stool guaiac
-Continue to monitor H&H
GI Prophylaxis: IV PPI
Critical Care time 33 mins -- The patient is admitted for acute critical illness for the treatment of vital organ failure and/or prevention of further life-threatening conditions. Total care includes time spent in review of history, physical exam,
medications, hemodynamic/ventilator parameters, laboratory data, imaging and discussion with house staff, pharmacy, respiratory therapy, rough and truing machine operator, and nursing.
Data:
ECHO 06/2024: Normal left ventricular chamber size. Severely reduced left ventricular
systolic function. Mild concentric left ventricular hypertrophy. Severe global
hypokinesis with possible inferior and apical akinesis. Left ventricular
ejection fraction is 10-15 % by visual estimate.
Mitral valve opens normally. Thickened mitral valve leaflets. Mitral annular
calcification. Mild mitral regurgitation.
Moderately dilated left atrium.
Tricuspid valve opens normally. Moderate tricuspid regurgitation. Estimated
pulmonary artery pressure of 62 mmHg assuming a right atrial pressure of 3
mmHg.
Moderately dilated right atrium.
Right ventricle appears mildly dilated and hypokinetic.
Small pericardial effusion without evidence of hemodynamic compromise.
Since echocardiogram 06/20/2024, there is no significant change.
CXR 06/24/2024
Endotracheal tube with tip in trachea above the salazar. No pneumothorax.
Patchy right lung opacity which could represent pneumonia/pneumonitis.
Nasogastric tube with tip in proximal stomach.
Subjective Dataa
Subjective Data
Date of Service:
Date of Service: June 29, 2024
Subjective:
Patient comfortably lying in bed, in no acute distress. Protecting airway well, no meaningful communication
Review of Systems
General: Unobtainable - Sedation (Unable to obtain review of system due to encephalopathy, appears comfortable)
Objective Data
Data Reviewed
Vital Signs / I&O / Oxygen:
Vital Signs
Temp Pulse Resp BP Pulse Ox
97.4 F 80 14 132/78 100
06/29/24 07:00 06/29/24 07:00 06/29/24 07:00 06/29/24 07:00 06/29/24 07:00
Intake and Output
06/28/24 06/29/24 06/30/24
06:59 06:59 06:59
Intake Total 1024 / 1038 811 / 811
Output Total 1984 2189
Balance -961 / -1347 -1379 / -1379
SaO2 [P-SIMV] 100
SaO2 [A/C] 100
SaO2 100
Nasal Cannula flow liters per 2
minute
Physical Exam
General: Comfortable
HEENT: Normocephalic
Cardiovascular: Regular Rhythm
Respiratory: Clear
GI: Soft and Non Distended
Neurology: Awake, Alert and Other (No meaningful communication)
Skin: Warm
Labs/Micro/Reports
Lab Data
06/29/24 04:42
Laboratory Results
06/29/24
04:42
APTT 148.8 H
Microbiology
06/22/24 13:23 Blood/Venous Blood Culture - Final
No Growth - Final Report
06/21/24 09:33 Blood/Venous Blood Culture - Final
No Growth - Final Report
[2024-06-29] MEDS: COREG 6.25 MG TUBE ×2 (07:57→19:36)
[2024-06-29] MEDS: FARXIGA 10 MG TUBE (07:57)
[2024-06-29] MEDS: MIRALAX 17 GRAMS TUBE (07:57)
[2024-06-29] MEDS: LOW STRENGTH ASPIRIN 81 MG TUBE (07:57)
[2024-06-29] MEDS: SENNA SYRUP 17.6 MG TUBE ×2 (07:57→19:34)
[2024-06-29] MEDS: LASIX 40 MG IV (07:58)
[2024-06-29] MEDS: NSS (PRESERVATIVE FREE) 10 ML IV ×2 (07:58→19:35)
[2024-06-29] MEDS: PACERONE 200 MG TUBE ×2 (07:58→19:35)
[2024-06-29] MEDS: PROTONIX IV 40 MG IV ×2 (07:59→19:35)
--- NOTE | 2024-06-29 08:06 | W.PN.ID1 ---
Date of Service
Date of Service: June 29, 2024
Today's Communication
Continue antibiotics.
Assessment / Plan
MSSA Bacteremia
Possible endocarditis
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
PEA/v fib arrest 06/24
CVA
Dm2; uncontrolled
Leukocytosis
- 06/21 and 06/22 blood cultures remain no growth to date
- TTE without vegetations, plan empiric treatment for possible endocarditis
- agree with repeat TTE when feasible, would recommend AICD placement after completion of treatment for possible endocarditis
- order for MRI foot from 06/23 cancelled - when medically stable will rediscuss with Dr Main podiatry
- continue meropenem day 7
- will likely require a course of home IV antibiotics, transition pending further management of foot infection
Choledocholithiasis s/p ERCP with 06/21
- has completed an adequate course, remains on meropenem as above for L great toe gangrene with possible need for further intervention
����������������������������������������������������������
Chief Complaint
-: Other (wet gangrene left hallux, mssa bacteremia, possible endocarditis)
Subjective / Review of Systems
Patient seen and examined. Isolated temp noted overnight.
Vital Signs / Physical Exam
Vital Signs
Vital Signs
Temp Pulse Resp BP Pulse Ox
97.4 F 85 14 132/78 100
06/29/24 07:00 06/29/24 07:58 06/29/24 07:00 06/29/24 07:58 06/29/24 07:00
Physical Exam
Constitutional: No Acute Distress, Comfortable and Chronically Ill
Eyes: No Conjunctival Hemorrhage and Sclera Anicteric
Cardiovascular: Regular Rate and S1/S2; Negative Murmur
Pulmonary: Clear, Symmetric and Non Labored; Negative Wheezes or Rales
Gastrointestinal: Soft, Non Tender, Non Distended and Normal Bowel Sounds
Skin: Warm and Dry; Negative Rash or Jaundice
Wound: Other (Left foot dressing clean, dry, intact)
Neurological: Awake, Alert and Other (gaze tracking, moving his head)
Psychological: Calm
Objective Data
Lab Data
Lab Results
06/29/24 04:42
PT 18.8 Sec (11.4-14.6) H 06/27/24 03:27
INR 1.52 06/27/24 03:27
APTT 148.8 Sec (23.4-35.0) H 06/29/24 04:42
Estimated Creat Clear 82 ml/min 06/29/24 04:42
Lactic Acid 1.0 mmol/L (0.7-2.0) 06/26/24 08:48
Total Bilirubin 1.8 mg/dl (0.2-1.3) H 06/27/24 03:27
AST 36 U/L (17-59) 06/27/24 03:27
ALT 30 U/L (0-50) 06/27/24 03:27
Alkaline Phosphatase 187 U/L (38-126) H 06/27/24 03:27
Most recent labs reviewed.
Micro Results:
06/22/24 13:23 Blood Culture - Final
Blood/Venous No Growth - Final Report
06/21/24 09:33 Blood Culture - Final
Blood/Venous No Growth - Final Report
06/22/24 14:36 Wound Culture - Final
Abscess S aureus-Methicillin Sensitive
Gram Stain - Final
06/20/24 00:42 Blood Culture - Final
Blood/Venous S aureus-Methicillin Sensitive
Gram Stain - Final
06/20/24 01:59 Blood Culture - Final
Blood/Venous S aureus-Methicillin Sensitive
Gram Stain - Final
06/18/24 16:51 Urine Culture - Final
Urine NO GROWTH
06/18/24 16:11 Influenza Types A & B (HUBER) - Final
Nasal Swab Negative for Influenza A & B, NAAT
Negative results must be combined with clinical observations
and patient history.
Nucleic Acid Amplification test (NAAT)performed on the
[employer] platform.
--- NOTE | 2024-06-29 08:27 | W.PN.CARDCBS ---
Today's Communication / Plan
-
Mental status continues to be poor. Agree with MRI of the brain today.
Hemoglobin back down to 6. Transfuse today. Continue aspirin. Would be okay with holding heparin from a cardiac standpoint with continued anemia.
Weight is down significantly. Will switch Lasix to 40 mg via tube daily.
No further ventricular arrhythmias. Continue amiodarone and carvedilol. Eventually restart Entresto and spironolactone.
Mental status continues to be an issue. Ultimately he would need a cardiac cath and ICD if he recovers.
Impression / Plan
-
PCP: Dr. Sherwood
Cardiology: Dr. Ny, last seen 06/2022
Impression:
Intraoperative PEA/ventricular fibrillation arrest 06/24/2024
Admitted with confusion and acute HFrEF 06/18/24
Tiny nonhemorrhagic acute/subacute infarct in the right periventricular white matter/centrum semiovale region by MRI 06/19/2024
Recent admission to [facility] for acute HF and foot wound 06/06/24 until 06/12/24
Hypotension
Acute HFrEF
CM EF 15% by echo at [place] 06/07/24
h/o improved NICM EF 25% by echo 03/2018 and then improved to 40% by echo 06/2022
Nonobstructive CAD by cath 2017
Medication noncompliance
Newly diagnosed LV thrombus
1.5 x 1.2 cm LV apical clot on echo at [place] 06/07/24
Chronic warfarin managed by [facility]
started for LV clot 06/07/24
Supratherapeutic INR on admission
Hyponatremia
GHAZAL on CKD 3a
Elevated LFTs
Chews tobacco
Unwitnessed fall
Echo 05/30/2024: [facility] study, EF 15 to 20%, severe global hypokinesis and septal dyskinesis, small and organized thrombus in the LV apex measuring 1.5 x 1.2 cm, grade 3 diastolic dysfunction, at least mildly dilated RV with reduced
systolic function, mild to moderate MR, mild pericardial effusion seen posteriorly without evidence of tamponade
Echo 06/20/24 with IV echo contrast: LV ejection fraction severely reduced, 15-20% with global hypokinesis. Dilated, hypokinetic right ventricle. Biatrial dilatation. Mild MR. Mild to moderate TR. Estimated pulmonary artery systolic pressure
50-55 mmHg. Small pericardial effusion without evidence of hemodynamic compromise. No LV apical thrombus
Plan:
Admitted with change in mental status and found to have small nonhemorrhagic right hemispheric CVA, recently hospitalized with LV thrombus and acute and chronic HFrEF with left lower extremity wound infection. Also with choledocholithiasis, status
post ERCP and sphincterotomy with stone extraction June 21. Underwent debridement of left foot wound 317, received treatment for acute HFrEF during hospital stay, went for right lower extremity percutaneous revascularization procedure today and
upon induction of anesthesia had pulseless electrical activity degenerating into VF requiring ACLS and ultimately return of spontaneous circulation. Now intubated on pressors in ICU.
PEA/ventricular fibrillation arrest: Rhythm is stable. Continue amiodarone no significant ventricular tachycardia. His temperature is now warmed. Mental status seems to be worse today. He has some delirium. For imaging of the brain today. He
does have MSSA bacteremia. Discussed case with infectious disease and will need to decide on risk/benefit of ICD versus risk of infection. Repeat blood cultures are negative.
Acute on chronic HFrEF: Weight is down 20 pounds and he is now off pressors. Cont Coreg to 6.25 twice daily. Creatinine is overall improved and down to 1.1. Will switch Lasix to 40 mg p.o. daily. Eventually restart Entresto and spironolactone
when blood pressure continues to improve.
He continues to be anemic and hemoglobin down to 6. Transfuse as needed.
PAD, foot wound, methicillin sensitive Staph aureus bacteremia: Continue meropenem, ? Endovascular infection
Recent right periventricular nonhemorrhagic CVA: Unclear whether cardioembolic, continue aspirin.
LV thrombus: Not seen on most recent echo, he remains on IV heparin. On repeat echo we did not see an LV thrombus. I would be okay with holding heparin for 24 hours with his hemoglobin of 6. Continue to follow.
Choledocholithiasis: ERCP June 21 with sphincterotomy and stone extraction
GHAZAL: Creatinine relatively stable at 1.1 despite PEA/VF arrest, will continue to follow
Toxic metabolic encephalopathy on admission/possible CVA. Mental status seems worse today. Consider repeat scan of brain
Discussed with nursing.
Critical care time 32 minutes
HPI: Patient came to [facility] from home yesterday with confusion and garbled speech and was admitted for acute HF and cardiology has been consulted. Patient is a poor historian and gave me permission to call his daughter. Also reviewed 67 pages of
records from recent [place] admission. Patient had NICM diagnosed in 2017 and with GDMT his EF improved to 40% by last echo at in 06/2022. Patient then stopped coming to cardiology appts at , but reportedly did not start following elsewhere.
Patient then retired and stopped taking his medications on a regular schedule despite reminders from family. Patient started with LE wounds 02/2024 and following with wound care center and seemed to be improving. Patient then started with a cough
and saw his PCP 05/02/24 and lungs were clear and he was started on promethazine and albuterol. Patient was then admitted to [place] with SOB 06/06/24 and during that admission was found to have EF down to 15% and he had a new LV clot and was started
on warfarin. Patient was also d/c'd to home on Coreg, Entresto and spironolactone which are meds he had been on when he was last seen in the cardiology office in 2022. Patient was diuresed with Lasix IV and d/c'd to home on Lasix 40 mg PO BID.
Patient's daughter reports that patient was not taking meds at home and when VN came to see him he had garbled speech and was sent to the ER.
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
Subjective
Date of Service: June 29, 2024
mental status still poor. No new rhythm issues
Objective
Labs:
06/29/24 04:42
Labs
Hgb 6.3 g/dL (13.0-18.0) L* 06/29/24 04:42
Hct 18.7 % (39.0-52.0) L* 06/29/24 04:42
Plt Count 297 10^3/uL (130-400) 06/29/24 04:42
PT 18.8 Sec (11.4-14.6) H 06/27/24 03:27
INR 1.52 06/27/24 03:27
APTT 148.8 Sec (23.4-35.0) H 06/29/24 04:42
Sodium 139 mmol/L (135-145) 06/29/24 04:42
Potassium 4.0 mmol/L (3.5-5.1) 06/29/24 04:42
BUN 53 mg/dl (9-20) H 06/29/24 04:42
Creatinine 1.1 mg/dL (0.7-1.3) 06/29/24 04:42
Glucose 49 mg/dl (70-99) L* 06/29/24 04:42
Vital Signs and I&O:
Vital Signs
Temp Pulse Resp BP Pulse Ox
97.4 F 85 14 132/78 100
06/29/24 07:00 06/29/24 07:58 06/29/24 07:00 06/29/24 07:58 06/29/24 07:00
Vital Signs
Temp Pulse Resp BP Pulse Ox
97.4 F 85 14 132/78 100
06/29/24 07:00 06/29/24 07:58 06/29/24 07:00 06/29/24 07:58 06/29/24 07:00
Intake & Output
06/27/24 06/28/24 06/29/24 06/30/24
06:59 06:59 06:59 06:59
Intake Total 2168.5 / 2204.5 1024 / 1038 811 / 811
Output Total 2375 / 6665 1984 / 2385 2189 / 219
Balance -206.5 / -270.5 -961 / -1347 -1379 / -1379
Physical Exam
Physical Exam
GEN: No distress, awake, not following commands
HEENT: supple, anicteric, mmm
LUNGS: CTA, no wheezes/rales
CV: Reg, S1/S2, 1/6 syst LSB, no gallop
ABD: soft, BS+, NT/ND
EXT: No edema
NEURO: Moving extremities
SKIN: No rash
[2024-06-29 08:37] LABS: Glucose - Point of Care 95 mg/dl (70-99)
[2024-06-29 09:58] LABS: Glucose - Point of Care 109 mg/dl (70-99)
--- NOTE | 2024-06-29 10:14 | PTCARENOTE ---
pt opens eyes to tactile stimulation , he is non verbal , moans , moves upper extremities , non purposeful , decorticating with painful stimuli , no movement with lower extremities even with painful stimuli , NIHSS 16, he is ordered an MRI for today
, NSR on monitor , BP 132/78 , o2 sat 100% , his hemoglobin down to 6.3 and his bun up 53, no overt signs of bleeding at this time , will Hemoccult stool when he starts having bowel movements , he is currently receiving one unit of PRBC , no bowel
movements increased dosage with senna , pt also had an event of hypoglycemia overnight 49 glucose , his Lantus is now on hold , he was only receiving 10ml of his Osmolite tube feeding , we are now increasing the tube feeds to goal rate of 75ml ,
patients daughter in room this am and she was updated on all new findings and plan of care
[2024-06-29] MEDS: NOVOLOG FLEXPEN 6 UNITS SC ×2 (12:33→18:31)
[2024-06-29 12:41] LABS: Glucose - Point of Care 133 mg/dl (70-99)
[2024-06-29 12:56] LABS: Hematocrit 21.1 % (39.0-52.0)
[2024-06-29 13:08] LABS: APTT 59.8 Sec (23.4-35.0)
--- NOTE | 2024-06-29 13:15 | PTCARENOTE ---
pt had one unit of PRBC and repeat hemoglobin 7.0 , Dr Cadet notified and pt is to receive 2 more units of PBRC
[2024-06-29 17:12] LABS: Glucose - Point of Care 124 mg/dl (70-99)
[2024-06-29] MEDS: LASIX 20 MG TUBE (17:17)
[2024-06-29 18:31] LABS: Glucose - Point of Care 165 mg/dl (70-99)
[2024-06-29] MEDS: NOVOLOG FLEXPEN-MODERATE RESISTANCE 1 UNITS SC (18:31)
--- NOTE | 2024-06-29 20:00 | PTCARENOTE ---
Received pt resting in bed, unable to verbally communicate, groaning when he pulls up on wrist restraints, no meaningful words. No tracking or commands followed. Pupils 4mm, sluggish B/L. Wrist restraints in place for safety. NSR on tele. HR 80s. BP
130s/80s. +2 hand and pedal edema. Neurovascular checks ongoing to LLE. L foot dsg c/d/i with KAM wrap. On RA. Lungs CTA but dim at bases. Poor effort. Spo2 94%. NG tube with vital 1.2 at 50ml/hr with 25ml/hr h20 flush. + bowel sounds. No BM. Condom
cath in place with adry urine output. R AC with heparin gtt- PTT due 2100. L midline patent and capped. Turning q2.
Pt. receiving unit of PRBCs at change of shift. Completed transfusion and temp noted 100.3 axillary. THERMOSCREW OPERATOR notified. No new orders. No other symptoms transfusion reaction. Will monitor closely.
[2024-06-29 21:16] LABS: APTT 105.2 Sec (23.4-35.0)
[2024-06-29] MEDS: TYLENOL ORAL SOLUTION 1000 MG TUBE (21:33)
[2024-06-29] MEDS: HEPARIN 25000 UNITS/250 ML IV (21:34)
[2024-06-29 23:52] LABS: Glucose - Point of Care 241 mg/dl (70-99)
[2024-06-30] VITALS (33 sets, daily range): BP systolic 107–142; BP diastolic 64–114; BMI 27.1
--- NOTE | 2024-06-30 00:16 | PTCARENOTE ---
Glucose = 241. WELLNESS GUIDE notified. Lantus had been held this AM. Order to restart lantus 10 units now. See MAR for sliding scale admin also.
Tylenol was given to pt. for CPOT 5. Seemed to have good effect as pt. fell asleep, seems less agitated. Assessment otherwise unchanged. Vitals stable.
[2024-06-30] MEDS: LANTUS 0.1 UNITS SC ×2 (00:45→23:45)
[2024-06-30] MEDS: NOVOLOG FLEXPEN-MODERATE RESISTANCE 5 UNITS SC ×2 (00:45→12:24)
[2024-06-30] MEDS: NOVOLOG FLEXPEN 6 UNITS SC ×3 (00:46→23:45)
[2024-06-30 00:57] LABS: Glucose - Point of Care 263 mg/dl (70-99)
[2024-06-30] MEDS: MERREM 500 MG IV ×4 (02:30→19:46)
[2024-06-30] MEDS: STERILE WATER FOR INJECTION 10 ML IV ×4 (02:30→19:46)
--- NOTE | 2024-06-30 03:45 | PTCARENOTE ---
Pt reassessed. Resting on and off. Bathed with CHG. On 2L NC due to sats of 88% while asleep.
[2024-06-30 04:01] LABS: APTT 146.6 Sec (23.4-35.0)
[2024-06-30 04:14] LABS: Hematocrit 20.9 % (39.0-52.0); Hemoglobin 7.2 g/dL (13.0-18.0); Mean Corp Hgb Conc. 34.4 g/dL (33.0-37.0); Mean Corpuscular Hgb 29.5 pg (27.0-31.0); Mean Corpuscular Volume 85.7 fL (80.0-94.0); Mean Platelet Volume 10.1 fL (7.4-10.4); Platelet Count 223 10^3/uL (130-400); Red Blood Cell Count 2.44 10^6/uL (4.70-6.10); Red Cell Dist. Width 15.3 % (11.5-14.5); White Blood Cell Count 18.6 10^3/uL (4.8-10.8)
[2024-06-30 04:27] LABS: Blood Urea Nitrogen 63 mg/dl (9-20); Calcium 7.7 mg/dl (8.4-10.2); Carbon Dioxide 30 mmol/L (22-30); Chloride 108 mmol/L (98-107); Estimated Creatinine Clearance 75 ml/min; Glucose 204 mg/dl (70-99); Magnesium 2.3 mg/dl (1.6-2.3); Phosphorus 3.9 mg/dl (2.5-4.5); Potassium 3.9 mmol/L (3.5-5.1); Sodium 141 mmol/L (135-145); eGFR > 60.00
--- NOTE | 2024-06-30 04:44 | PTCARENOTE ---
Hgb 7.2 this AM. 1 unit PRBCs ordered. Type+screen - new one drawn and sent. Will request PRBCs once T+S resulted. No evidence of bleeding overnight.
[2024-06-30] MEDS: TYLENOL ORAL SOLUTION 1000 MG TUBE ×2 (05:12→18:14)
[2024-06-30 05:25] LABS: Glucose - Point of Care 240 mg/dl (70-99)
[2024-06-30] MEDS: NOVOLOG FLEXPEN-MODERATE RESISTANCE 3 UNITS SC ×2 (05:40→17:28)
--- NOTE | 2024-06-30 06:42 | W.PN.HOSP.TC ---
Addendum entered and electronically signed by Laila Kruger MD 06/30/24 21:23:
CT abd/pelvis appreciated Large left retroperitoneal hematoma measuring 13.0 x 12.4 x 3.3 cm. Intramuscular hematoma in the bilateral psoas and iliacus muscles.
Hep gtt and ASA placed on hold.
Original Note:
Today's Communication/Plan
-
2PBRC transfusion, Lasix 20 mg Tube in between transfusions
check CT abd/pelvis IV/oral contrast eval for possible retroperitoneal bleed
Glycemic control
abx as per ID
diuresis rate and rhythm control as per Cardio
wound care as per Podiatry
cont ICU care
minimize sedating medications as feasible
restraints prn, maintain NGT pending clearance to resume oral diet
Seroquel 25 mg HS, follow up AM EKG QT monitoring
cont laxatives, consider adding Lactulose if constipation persists
Assessment / Plan
Assessment / Plan
Physical Exam
GEN: appears uncomfortable
HEENT: EOMI, MMM
LUNGS: CTA B/L without wheeze or rales
CV: Normal sinus rhythm no murmurs gallops
ABD: soft, BS+, NT, ND
EXT: left foot wound dressing clean dry intact
NEURO: Awake confused more communicative compared to day prior, nodding/shaking head in answer to yes/no questions, denied pain though appears uncomfortable
63M HFrEF CKD3 DM neuropathy HLD Nicotine dependence complicated hospital course with MSSA bacteremia, Left hallux gangrene, CVA suspect 2/2 cardiac emboli LV thrombus. Had partial amputation Lt Hallux Gangrene OR Podiatry 06/23. Patient was
planned for revascularization LLE 06/24 however developed PEA/Vfib arrest after anesthesia induction requiring ACLS. ROSC eventually achieved, patient was subsequently transferred to ICU intubated and requiring pressor support.
06/24/24 PEA/Vfib arrest following Anesthesia Induction
Acute Anoxic Encephalopathy vs Delirium
Underwent 3 rounds of ACLS and 4 defibrillations as per Cardio before ROSC was achieved
CT head appreciated no acute abn's
ECHO post-code appreciated EF 10-15% no significant change from prior ECHO 06/20/24
transferred to ICU intubated and on pressor support, poor neurologic recovery noted then, unresponsive off sedation
amiodarone gtt transitioned to PO via ngt
Neuro Cardio Hot Braider evals appreciated
weaned off pressor support
TTM completed, mental status improving
Extubated 06/27
Though stable respiratory status on NC, remains confused nonverbal unsafe to start oral diet, remains on tube feeds
minimize sedating medication use as possible
nonviolent restraints prn
Brain MRI 06/29/24 noted no acute abn though limited study d/t motion defects
Negative Ammonia level
Seroquel 25 mg HS, follow up EKG in AM for QTc monitoring
#reported hx LV thrombus
-Dx 2 weeks prior to arrival at [facility], suspect due to severely depressed LVEF
-Started on Coumadin anticoagulation 06/07/2024 for LV apical thrombus
-Coumadin on hold, on hep gtt for potential procedures
-given recent ECHO noted no thrombus, ok to hold hep gtt 24h as per cardio d/t anemia as below, per Hot Braider discussion w/ Vascular recommended against holding however.
Progressive/persistent Anemia
- possible anemia of chronic disease vs blood loss from wound vs iatrogenic (less likely)
-monitor H&H and transfuse as necessary Hgb<7.5
-Iron panel appreciated anemia of chronic disease
-Protonix IV 40 mg BID
-Anemia continues to persist since 06/26, has received a total of 7 PRBC, 2 more units ordered 06/30/24
-GI eval requeste
-per discussion with GI, GI bleed unlikely, checking CT abd/pelvis IV/oral contrast to evaluate for possible retroperitoneal bleed
# MSSA bacteremia
-Blood cultures from 06/20 positive for MSSA [correction to prior documentation]
-Suspect secondary to left hallux wet gangrene, which itself is suspected due to embolic effect
-Antibiotics switched to meropenem, cont as per ID
-Repeat blood cultures from 06/21 and 06/22 with no growth to date
-Treatment of underlying wet gangrene, appreciate guidance from ID and podiatry
-strict NWB and elevation LLE as per Podiatry
#Left hallux gangrene:
-Suspect secondary to embolism as also caused stroke
-wound cx pos MSSA
-Status post partial amputation in the OR with podiatry 06/23
-Planned for revascularization 06/24 aborted d/t PE/Vfib arrest as above
-Continue local wound care, empiric meropenem
-Continuing anticoagulation with IV heparin, warfarin held for surgical procedures
-Appreciate input from ID and podiatry
#CVA
- Suspect secondary to cardiac emboli
� Acute/subacute infarct in the right periventricular white matter/centrum semiovale region
� Anticoagulated with IV heparin drip
� Neurology consult appreciated
� Carotids unremarkable
- hold PT OT d/t critical illness requiring ICU care as above
#Acute on chronic HFrEF
EF 15-20%
-Cardio eval appreciated Lasix and Coreg restarted following wean off pressors.
-Farxiga resumed, cont
#Choledocholithiasis
-ERCP 06/21 with stone identified and removed and biliary sphincterotomy performed
-GI eval appreciated
#Transaminitis
� Secondary to choledocholithiasis, ERCP performed 06/21
� Resolving after ERCP
#GHAZAL
-Initial creat 1.6 since improved
-CKD III ruled out with resolution GHAZAL
-monitor
#DM 2/diabetic neuropathy
-Uncontrolled, hemoglobin A1c 10.8% this admission
-DM PRODUCT SAFETY SPECIALIST eval appreciated
-insulin gtt transitiioned to subq
-Farxiga resumed
-Gabapentin 600 mg daily on hold d/t Encephalopathy as above
#Constipation
cont Miralax and Sennosides, consider Lactulose if no improvement
#Mild Hyponatremia
monitor
#HLD
-Continue statin
#Nicotine dependence
DVT prophylaxis hep gtt
Full code
Guarded Prognosis
Total Critical Care Time__50___ minutes. I was immediately available to the patient and staff. I personally examined, reviewed labs, diagnostic images/reports, interpretations, treatment plans, discussed patient care with other providers and
patient's Sara (patient unable to make decisions for himself) , entered orders as appropriate and documented the medical record.
Anticipated Discharge: > 48 hours
Subjective/Interval History
-
Date of Service: June 30, 2024
remains confused on restraints but appears more interactive communicative compared to yesterday. Eye tracking. Shakes his head when asked if in any pain. Patient however appears uncomfortable occasionally moaning.
Objective Data
-
Labs:
Laboratory Results
06/29/24 06/30/24 06/30/24
20:57 03:38 10:30
WBC 18.6 H
Hgb 7.2 L
Hct 20.9 L*
Plt Count 223 D
APTT 105.2 H 146.6 H Pending
Sodium 141
Potassium 3.9
Chloride 108 H
Carbon Dioxide 30
BUN 63 H
Creatinine 1.2
Glucose 204 H
Calcium 7.7 L
06/30/24
12:00
WBC
Hgb Pending
Hct Pending
Plt Count
APTT
Sodium
Potassium
Chloride
Carbon Dioxide
BUN
Creatinine
Glucose
Calcium
Vital Signs:
Vital Signs
Temp Pulse Resp BP Pulse Ox
98.9 F 75 21 140/100 99
06/30/24 04:44 06/30/24 06:00 06/30/24 06:00 06/30/24 06:00 06/30/24 06:00
I&O
06/28/24 06/29/24 06/30/24
06:59 06:59 06:59
Intake Total 1024 / 1038 811 / 857 2879 / 2879
Output Total 1984 2190 / 2190 1650 / 1650
Balance -961 / -1347 -1379 / -1333 1229 / 1229
--- NOTE | 2024-06-30 07:29 | W.PN.INTV ---
Today's Communication / Plan
Recommendations
-Replace potassium, add daily dosing
-Transfused 2 units
-GI consult
-CT abdomen pelvis without contrast evaluate for any retroperitoneal blood loss
Assessment
-
63 old gentleman with known history of LV EF 10 to 15% and pulmonary hypertension was scheduled for arteriogram in the OR. Post induction with propofol, patient developed progressive hypotension followed by a PEA arrest and CPR was started.
Subsequently patient developed ventricular tachycardia and at some point ventricular fibrillation requiring ongoing CPR and defibrillation. Eventually ROSC was achieved and patient was transferred to ICU, intubated and on mechanical ventilation.
Maintenance Shop Manager consult was requested for further management. Prior to this event, patient has been in the hospital for a gangrenous right foot status post ray amputation and has been on meropenem for MSSA bacteremia with sepsis. Stays also
complicated by choledocholithiasis status post ERCP and stone retrieval.
last 24 hrs:
-Patient continues to be awake and alert however not oriented and no meaningful communication
-Currently on heparin drip only, off Levophed and off insulin
-Hemoglobin stable
-Potassium noted to be 3.9
-MRI brain 06/29, No significant abnormality, limited by significant motion during imaging
#1. Cardiac arrest with PEA followed by Ventricular Tachycardia followed by Polymorphic VT/V Fib
-Hypotension and PEA arrest post induction with Propofol. S/p 3 rounds of ACLS and 4 defibrillations followed by ROSC
-Successfully extubated 06/27
-Amiodarone to PO 200 mg bid
-Target K >4 and Mg >2
-Telemetry
-ECHO reviewed, EF 10-15% with Estimated PAP 62 mm
-Initial CT head negative for acute changes
-Targeted temperature management with goal to keep normothermia and avoid fever, completed
-Monitor electrolytes closely
-Target MAP 65
#2. Shock, cardiogenic and also vasoplegia post cardiac arrest
-Resolved, off Levophed now
-Known h/o LV failure and Severe Pulmonary HTN
-Off Vasopressin
-Continue Meropenem
#3. Severe non-ischemic cardiomyopathy with EF 10-15% with Pulmonary HTN (62mm) with LV Thrombus
-Cardiology service on case
-Vasopressors as needed
-Monitor I/O closely, -469 ml
-Continue Heparin drip
-Lasix switched to via NG tube, replace and add daily Kcl
-Labs in AM
#4. RLL Aspiration pneumonia vs Pneumonitis
-Continue Meropenem
-CXR improving
#5. 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
-ID service on case. Bacteremia has since resolved
-Podiatry service and Vascular service on case, likely will need definitive treatment in coming days/weeks
-Heparin to be continued for now per Vascular Surgery for concern of severe PVD
#6. Concern for ischemic/Anoxic encephalopathy
-Patient more awake, alert and successfully extubated
-Brief eye contact intermittently, otherwise no meaningful communication
-?Delirium vs residual anoxic injury. In view of persisting poor mental status, MRI completed 06/29, without any significant finding
-Minimize sedation, off Buspirone. Stopped Seroquel 12.5 mg
-Neurology service on case, likely will need f/u EEG
#7. DM
-Insulin transitioned to s.c.
-Advancing tube feeding to goal
#8. Anemia, suspect blood loss
-Intermittent oozing noted from the foot, status post dressing change
-Hematocrit dropped noted even without episodes of bleeding from the foot, elevated BUN/creatinine ratio,? Occult GI bleed
-Increased PPI to 40 twice daily, GI service consulted
-Check stool guaiac
-Continue to monitor H&H
-CT abd/pelvis to evaluate for any retro-peritoneal bleeding
GI Prophylaxis: IV PPI
Critical Care time 38 mins -- The patient is admitted for acute critical illness for the treatment of vital organ failure and/or prevention of further life-threatening conditions. Total care includes time spent in review of history, physical exam,
medications, hemodynamic/ventilator parameters, laboratory data, imaging and discussion with house staff, pharmacy, respiratory therapy, senior instructor, and nursing.
Data:
ECHO 06/2024: Normal left ventricular chamber size. Severely reduced left ventricular
systolic function. Mild concentric left ventricular hypertrophy. Severe global
hypokinesis with possible inferior and apical akinesis. Left ventricular
ejection fraction is 10-15 % by visual estimate.
Mitral valve opens normally. Thickened mitral valve leaflets. Mitral annular
calcification. Mild mitral regurgitation.
Moderately dilated left atrium.
Tricuspid valve opens normally. Moderate tricuspid regurgitation. Estimated
pulmonary artery pressure of 62 mmHg assuming a right atrial pressure of 3
mmHg.
Moderately dilated right atrium.
Right ventricle appears mildly dilated and hypokinetic.
Small pericardial effusion without evidence of hemodynamic compromise.
Since echocardiogram 06/20/2024, there is no significant change.
CXR 06/24/2024
Endotracheal tube with tip in trachea above the salazar. No pneumothorax.
Patchy right lung opacity which could represent pneumonia/pneumonitis.
Nasogastric tube with tip in proximal stomach.
Subjective Dataa
Subjective Data
Date of Service:
Date of Service: June 30, 2024
Subjective:
Patient comfortably lying in bed, in no acute distress.
Review of Systems
General: Other (Unobtainable due to patient's mental status, does not appear to be in any pain or discomfort)
Objective Data
Data Reviewed
Vital Signs / I&O / Oxygen:
Vital Signs
Temp Pulse Resp BP Pulse Ox
98.3 F 75 21 140/100 99
06/30/24 07:00 06/30/24 06:00 06/30/24 06:00 06/30/24 06:00 06/30/24 06:00
Intake and Output
06/29/24 06/30/24 07/01/24
06:59 06:59 06:59
Intake Total 811 / 857 2879 / 2879
Output Total 2190 / 2190 1650 / 1650
Balance -1379 / -1333 1229 / 1229
SaO2 [P-SIMV] 100
SaO2 [A/C] 100
SaO2 99
Nasal Cannula flow liters per 2
minute
Physical Exam
General: Comfortable
HEENT: Normocephalic
Cardiovascular: Regular Rhythm
Respiratory: Clear
GI: Soft and Non Distended
Neurology: Awake, Alert and Other (No meaningful communication)
Skin: Warm
Labs/Micro/Reports
Lab Data
06/30/24 03:38
Laboratory Results
06/29/24 06/29/24 06/30/24
12:47 20:57 03:38
APTT 59.8 H 105.2 H 146.6 H
Microbiology
06/22/24 13:23 Blood/Venous Blood Culture - Final
No Growth - Final Report
--- NOTE | 2024-06-30 08:10 | W.PN.ID1 ---
Date of Service
Date of Service: June 30, 2024
Today's Communication
Continue antibiotics.
Assessment / Plan
MSSA Bacteremia
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
PEA/v fib arrest 06/24
CVA
Dm2; uncontrolled
Leukocytosis
- 06/21 and 06/22 blood cultures remain no growth to date
- TTE without vegetations but plan empiric treatment for possible endocarditis
- Repeat TTE when feasible, would recommend AICD placement after completion of treatment for possible endocarditis
- Consider MRI left foot when medically stable.
- continue meropenem (d#8)
- will likely require a course of home IV antibiotics, transition pending further management of foot infection
Choledocholithiasis s/p ERCP with 06/21
- has completed an adequate course, remains on meropenem as above for L great toe gangrene with possible need for further intervention
����������������������������������������������������������
Chief Complaint
-: Other (wet gangrene left hallux, mssa bacteremia, possible endocarditis)
Subjective / Review of Systems
Review of Systems: No Fever
Vital Signs / Physical Exam
Vital Signs
Vital Signs
Temp Pulse Resp BP Pulse Ox
98.3 F 75 21 140/100 99
06/30/24 07:00 06/30/24 06:00 06/30/24 06:00 06/30/24 06:00 06/30/24 06:00
Physical Exam
Constitutional: No Acute Distress, Comfortable and Chronically Ill
Eyes: No Conjunctival Hemorrhage and Sclera Anicteric
Cardiovascular: Regular Rate and S1/S2; Negative Murmur
Pulmonary: Clear, Symmetric and Non Labored; Negative Wheezes or Rales
Gastrointestinal: Soft, Non Tender, Non Distended and Normal Bowel Sounds
Skin: Warm and Dry; Negative Rash or Jaundice
Wound: Other (Left foot dressing clean, dry, intact)
Neurological: Awake and Other (gaze tracking, moving his head)
Psychological: Calm
Objective Data
Lab Data
Lab Results
06/30/24 03:38
PT 18.8 Sec (11.4-14.6) H 06/27/24 03:27
INR 1.52 06/27/24 03:27
APTT 146.6 Sec (23.4-35.0) H 06/30/24 03:38
Estimated Creat Clear 75 ml/min 06/30/24 03:38
Lactic Acid 1.0 mmol/L (0.7-2.0) 06/26/24 08:48
Total Bilirubin 1.8 mg/dl (0.2-1.3) H 06/27/24 03:27
AST 36 U/L (17-59) 06/27/24 03:27
ALT 30 U/L (0-50) 06/27/24 03:27
Alkaline Phosphatase 187 U/L (38-126) H 06/27/24 03:27
Most recent labs reviewed.
Micro Results:
06/22/24 13:23 Blood Culture - Final
Blood/Venous No Growth - Final Report
06/21/24 09:33 Blood Culture - Final
Blood/Venous No Growth - Final Report
06/22/24 14:36 Wound Culture - Final
Abscess S aureus-Methicillin Sensitive
Gram Stain - Final
06/20/24 00:42 Blood Culture - Final
Blood/Venous S aureus-Methicillin Sensitive
Gram Stain - Final
06/20/24 01:59 Blood Culture - Final
Blood/Venous S aureus-Methicillin Sensitive
Gram Stain - Final
06/18/24 16:51 Urine Culture - Final
Urine NO GROWTH
06/18/24 16:11 Influenza Types A & B (HUBER) - Final
Nasal Swab Negative for Influenza A & B, NAAT
Negative results must be combined with clinical observations
and patient history.
Nucleic Acid Amplification test (NAAT)performed on the
[employer] platform.
Imaging:
06/24/2024 ECHO (TTE): Normal LV chamber size. Severely reduced LV systolic function with EF approximately 10 to 15%. Severe global hypokinesis. Mitral valve opens normally, but is noted to have thickened leaflets and mitral annular calcification.
Mild mitral regurgitation. Please see full dictation for additional detail.
Echocardiogram: Report Reviewed
[2024-06-30] MEDS: NSS (PRESERVATIVE FREE) 10 ML IV ×2 (09:01→19:46)
[2024-06-30] MEDS: PROTONIX IV 40 MG IV ×2 (09:01→19:46)
[2024-06-30] MEDS: KCL ELIXIR 20 MEQ TUBE (09:02)
[2024-06-30] MEDS: FARXIGA 10 MG TUBE (09:02)
[2024-06-30] MEDS: MIRALAX 17 GRAMS TUBE (09:02)
[2024-06-30] MEDS: COREG 6.25 MG TUBE (09:02)
[2024-06-30] MEDS: SENNA SYRUP 17.6 MG TUBE ×2 (09:02→19:45)
[2024-06-30] MEDS: PACERONE 200 MG TUBE ×2 (09:03→19:45)
[2024-06-30] MEDS: LOW STRENGTH ASPIRIN 81 MG TUBE (09:03)
[2024-06-30] MEDS: LASIX 40 MG PO (09:03)
[2024-06-30 09:10] LABS: Ammonia < 9 umol/L (9-30)
--- NOTE | 2024-06-30 11:07 | W.PN.CARDCBS ---
Today's Communication / Plan
-
MRI of the brain overall unremarkable. Mental status continues to be his biggest issue.
Increase Coreg to 12.5 mg twice daily. Blood pressure has been stable. Eventually restart Entresto
At this point with his mental status continue to hold off on possible cardiac cath and ICD.
Hemoglobin overall stable at 7. Remains on aspirin and heparin.
Impression / Plan
-
PCP: Dr. Sherwood
Cardiology: Dr. Ny, last seen 06/2022
Impression:
Intraoperative PEA/ventricular fibrillation arrest 06/24/2024
Admitted with confusion and acute HFrEF 06/18/24
Tiny nonhemorrhagic acute/subacute infarct in the right periventricular white matter/centrum semiovale region by MRI 06/19/2024
Recent admission to [facility] for acute HF and foot wound 06/06/24 until 06/12/24
Hypotension
Acute HFrEF
CM EF 15% by echo at [place] 06/07/24
h/o improved NICM EF 25% by echo 03/2018 and then improved to 40% by echo 06/2022
Nonobstructive CAD by cath 2017
Medication noncompliance
Newly diagnosed LV thrombus
1.5 x 1.2 cm LV apical clot on echo at [place] 06/07/24
Chronic warfarin managed by [facility]
started for LV clot 06/07/24
Supratherapeutic INR on admission
Hyponatremia
GHAZAL on CKD 3a
Elevated LFTs
Chews tobacco
Unwitnessed fall
Echo 05/30/2024: [facility] study, EF 15 to 20%, severe global hypokinesis and septal dyskinesis, small and organized thrombus in the LV apex measuring 1.5 x 1.2 cm, grade 3 diastolic dysfunction, at least mildly dilated RV with reduced
systolic function, mild to moderate MR, mild pericardial effusion seen posteriorly without evidence of tamponade
Echo 06/20/24 with IV echo contrast: LV ejection fraction severely reduced, 15-20% with global hypokinesis. Dilated, hypokinetic right ventricle. Biatrial dilatation. Mild MR. Mild to moderate TR. Estimated pulmonary artery systolic pressure
50-55 mmHg. Small pericardial effusion without evidence of hemodynamic compromise. No LV apical thrombus
Plan:
Admitted with change in mental status and found to have small nonhemorrhagic right hemispheric CVA, recently hospitalized with LV thrombus and acute and chronic HFrEF with left lower extremity wound infection. Also with choledocholithiasis, status
post ERCP and sphincterotomy with stone extraction June 21. Underwent debridement of left foot wound 317, received treatment for acute HFrEF during hospital stay, went for right lower extremity percutaneous revascularization procedure today and
upon induction of anesthesia had pulseless electrical activity degenerating into VF requiring ACLS and ultimately return of spontaneous circulation. Now intubated on pressors in ICU.
PEA/ventricular fibrillation arrest: Rhythm is stable. Continue amiodarone no significant ventricular tachycardia. His temperature is now warmed. Mental status continues to be biggest issue. MRI of the brain reveals no clear acute abnormality.
He does have MSSA bacteremia. Discussed case with infectious disease and will need to decide on risk/benefit of ICD versus risk of infection. Repeat blood cultures are negative.
Acute on chronic HFrEF: Weight is down 20 pounds and he is now off pressors. Cont Coreg, increase to 12.5 mg p.o. twice daily creatinine is overall improved at 1.2. Cont Lasix to 40 mg p.o. daily. Eventually restart Entresto and spironolactone
when blood pressure continues to improve.
He continues to be anemic and hemoglobin in the 6-7 range. Transfuse as needed.
PAD, foot wound, methicillin sensitive Staph aureus bacteremia: Continue meropenem, ? Endovascular infection
Recent right periventricular nonhemorrhagic CVA: Unclear whether cardioembolic, continue aspirin.
LV thrombus: Not seen on most recent echo, he remains on IV heparin. On repeat echo we did not see an LV thrombus. I would be okay with holding heparin for 24 hours with his hemoglobin of 6. Continue to follow.
Choledocholithiasis: ERCP June 21 with sphincterotomy and stone extraction
GHAZAL: Creatinine relatively stable at 1.2 despite PEA/VF arrest, will continue to follow
Toxic metabolic encephalopathy on admission/possible CVA.
HPI: Patient came to [facility] from home yesterday with confusion and garbled speech and was admitted for acute HF and cardiology has been consulted. Patient is a poor historian and gave me permission to call his daughter. Also reviewed 67 pages of
records from recent [place] admission. Patient had NICM diagnosed in 2018 and with GDMT his EF improved to 40% by last echo at in 06/2022. Patient then stopped coming to cardiology appts at , but reportedly did not start following elsewhere.
Patient then retired and stopped taking his medications on a regular schedule despite reminders from family. Patient started with LE wounds 02/2024 and following with wound care center and seemed to be improving. Patient then started with a cough
and saw his PCP 05/02/24 and lungs were clear and he was started on promethazine and albuterol. Patient was then admitted to [place] with SOB 06/06/24 and during that admission was found to have EF down to 15% and he had a new LV clot and was started
on warfarin. Patient was also d/c'd to home on Coreg, Entresto and spironolactone which are meds he had been on when he was last seen in the cardiology office in 2022. Patient was diuresed with Lasix IV and d/c'd to home on Lasix 40 mg PO BID.
Patient's daughter reports that patient was not taking meds at home and when VN came to see him he had garbled speech and was sent to the ER.
Progress Note - Technical Operator
Subjective
Date of Service: June 30, 2024
Not following commands mental status still poor.
Objective
Labs:
06/30/24 03:38
Labs
Hgb Cancelled 06/30/24 12:00
Hct Cancelled 06/30/24 12:00
Plt Count 223 10^3/uL (130-400) D 06/30/24 03:38
PT 18.8 Sec (11.4-14.6) H 06/27/24 03:27
INR 1.52 06/27/24 03:27
APTT 146.6 Sec (23.4-35.0) H 06/30/24 03:38
Sodium 141 mmol/L (135-145) 06/30/24 03:38
Potassium 3.9 mmol/L (3.5-5.1) 06/30/24 03:38
BUN 63 mg/dl (9-20) H 06/30/24 03:38
Creatinine 1.2 mg/dL (0.7-1.3) 06/30/24 03:38
Glucose 204 mg/dl (70-99) H 06/30/24 03:38
Vital Signs and I&O:
Vital Signs
Temp Pulse Resp BP Pulse Ox
98.1 F 77 24 119/76 91
06/30/24 09:48 06/30/24 10:16 06/30/24 10:16 06/30/24 10:16 06/30/24 09:00
Vital Signs
Temp Pulse Resp BP Pulse Ox
98.1 F 77 24 119/76 91
06/30/24 09:48 06/30/24 10:16 06/30/24 10:16 06/30/24 10:16 06/30/24 09:00
Intake & Output
06/28/24 06/29/24 06/30/24 07/01/24
06:59 06:59 06:59 06:59
Intake Total 1024 / 1038 811 / 857 2879 / 2991 448 / 448
Output Total 1984 / 2384 2190 / 2190 1650 / 1650 300 / 300
Balance -961 / -1347 -1379 / -1333 1229 / 1341 148 / 148
Physical Exam
Physical Exam
GEN: No distress, opens eyes
HEENT: supple, anicteric, mmm
LUNGS: scatt rhonchi
CV: Reg, S1/S2, 1/6 syst LSB, no gallop
ABD: soft, BS+, NT/ND
EXT: No edema
NEURO: moving extremities
SKIN: No rash
[2024-06-30 11:32] LABS: APTT 60.2 Sec (23.4-35.0)
--- NOTE | 2024-06-30 11:52 | PTCARENOTE ---
pt awake and moaning , he is restless , occasionally is nodding appropriately , he is difficult to redirect but at times he can be redirected , his NIHSS 12, he waxes and weans with his neuro status , again he was awake all night , his hemoglobin
7.2 this am and hes receiving 2 units of PRBC , WBC 18.6, no fevers , he has had no BMs , hes tolerating his tube feeds , urine output is adequate , he has a CT of abdomen and pelvis ordered today
[2024-06-30 12:00] LABS: Glucose - Point of Care 254 mg/dl (70-99)
[2024-06-30] MEDS: LASIX 20 MG TUBE (12:02)
[2024-06-30] MEDS: OMNIPAQUE 50 ML PO (14:11)
--- NOTE | 2024-06-30 15:29 | PTCARENOTE ---
patient completed 2 units of PRBC , he is more alert and following some commands , he continues to moan and is restless in bed , pt and daughter visiting and updated on plan of care a
[2024-06-30] MEDS: HEPARIN 25000 UNITS/250 ML IV (17:23)
[2024-06-30 17:28] LABS: Glucose - Point of Care 248 mg/dl (70-99)
--- NOTE | 2024-06-30 17:38 | PTCARENOTE ---
pt sent to CT scan for scan of abdomen and pelvis
--- NOTE | 2024-06-30 18:04 | PTCARENOTE ---
pt heparin gtt DC as pre Dr Kruger and CT results
[2024-06-30 18:13] LABS: Hematocrit 25.3 % (39.0-52.0); Hemoglobin 8.6 g/dL (13.0-18.0)
--- NOTE | 2024-06-30 18:54 | W.PN.UPDATE ---
Update Note
Progress Note Update
CT abd/pelvis appreciated Large left retroperitoneal hematoma measuring 13.0 x 12.4 x 3.3 cm. Intramuscular hematoma in the bilateral psoas and iliacus muscles.
Hep gtt and ASA placed on hold.
[2024-06-30] MEDS: COREG 12.5 MG TUBE (19:46)
--- NOTE | 2024-06-30 20:00 | PTCARENOTE ---
Received pt resting in bed, groaning frequently, able to speak a few meaningful words. Said 'here' when asked where he was. Unable to state name or anything else meaningful. Was given tylenol on dayshi. Pupils 4mm. Wrist restraints in place for
safety. NSR on tele. HR 80s. BP stable. +1 hand and pedal edema. Neurovascular checks ongoing to LLE. L foot dsg c/d/i with KAM wrap. On RA. Lungs CTA but dim at bases. Poor effort. Spo2 94%. NG tube with vital 1.2 at 75ml/hr with 25ml/hr h20 flush.
+ bowel sounds. L low flank with ecchymosis. No BM. Condom cath in place with adry urine output. L midline patent and capped. Turning q2 and PRN. Mouth care provided
[2024-06-30] MEDS: DILAUDID 0.5 MG IV (21:00)
--- NOTE | 2024-06-30 21:07 | PTCARENOTE ---
Pt. with increased moaning/calling out, sometimes saying 'ow.' Per orders, PRN dilaudid given for CPOT>2 and little relief from tylenol previously. Will monitor
[2024-06-30 23:31] LABS: Glucose - Point of Care 353 mg/dl (70-99)
[2024-06-30] MEDS: LANTUS SC (23:45)
[2024-06-30] MEDS: NOVOLOG FLEXPEN-MODERATE RESISTANCE 9 UNITS SC (23:52)
[2024-07-01] VITALS (29 sets, daily range): BP systolic 89–153; BP diastolic 60–100; BMI 27.1
--- NOTE | 2024-07-01 00:06 | PTCARENOTE ---
BG = 353. SALVAGE WORKER notified. Lantus increased to 10 units. Extra 6 units novolog ordered. Sliding scale also given.
[2024-07-01] MEDS: TYLENOL ORAL SOLUTION 1000 MG TUBE (01:56)
[2024-07-01] MEDS: STERILE WATER FOR INJECTION 10 ML IV ×2 (01:56→08:56)
[2024-07-01] MEDS: MERREM 500 MG IV ×2 (01:56→08:55)
[2024-07-01] MEDS: NOVOLOG FLEXPEN 7 UNITS SC (02:15)
[2024-07-01 02:22] LABS: Glucose - Point of Care 358 mg/dl (70-99)
[2024-07-01 04:25] LABS: Hematocrit 21.7 % (39.0-52.0); Hemoglobin 7.3 g/dL (13.0-18.0); Mean Corp Hgb Conc. 33.6 g/dL (33.0-37.0); Mean Corpuscular Hgb 29.7 pg (27.0-31.0); Mean Corpuscular Volume 88.2 fL (80.0-94.0); Mean Platelet Volume 10.5 fL (7.4-10.4); Platelet Count 203 10^3/uL (130-400); Red Blood Cell Count 2.46 10^6/uL (4.70-6.10); Red Cell Dist. Width 16.3 % (11.5-14.5); White Blood Cell Count 17.7 10^3/uL (4.8-10.8)
[2024-07-01 04:53] LABS: Blood Urea Nitrogen 68 mg/dl (9-20); Calcium 7.6 mg/dl (8.4-10.2); Carbon Dioxide 28 mmol/L (22-30); Chloride 106 mmol/L (98-107); Estimated Creatinine Clearance 75 ml/min; Glucose 258 mg/dl (70-99); Magnesium 2.3 mg/dl (1.6-2.3); Phosphorus 3.7 mg/dl (2.5-4.5); Potassium 3.7 mmol/L (3.5-5.1); Sodium 141 mmol/L (135-145); eGFR > 60.00
--- NOTE | 2024-07-01 05:19 | PTCARENOTE ---
Pt. had multiple large, loose light brown BMs. Attempted placement of rectal trumpet but pt. pushed it out. Cleaning PRN. CHG bath given.
Hgb 7.3 this AM. WASHERETTE MACHINE OPERATOR notified - 1 unit PRBCs ordered.
[2024-07-01] MEDS: NOVOLOG FLEXPEN 8 UNITS SC ×2 (05:42→11:20)
[2024-07-01] MEDS: NOVOLOG FLEXPEN-MODERATE RESISTANCE 5 UNITS SC (05:42)
[2024-07-01 05:54] LABS: Glucose - Point of Care 265 mg/dl (70-99)
--- NOTE | 2024-07-01 08:00 | PTCARENOTE ---
Received pt resting in bed, groaning frequently, some appropriate interaction with staff, but mostly just yelling out. Does smile and follow commands. Unable to state name or anything else meaningful. Wrist restraints in place for safety. Pt does
grab at staff and equipment, not in agressive manner but requires frequent redirection. ST/SR tele. BP stable. Neurovascular checks ongoing to LLE. L foot dsg c/d/i with KAM wrap. rec'd on 2L NC, weaned to room air. Lungs CTA but dim at bases. Poor
effort. Spo2 95%. NG tube with vital 1.2 at 75ml/hr with 25ml/hr h20 flush. + bowel sounds. L lank with ecchymosis. No BM at this time, however frequent BMs overnight per night RN. Condom cath removed due to would on penis noted, pt frquently incont
urine, Covidien in place. L midline patent and capped. Turning q2 and PRN. Mouth care provided. PRBCs finished -see TAR. Plan discussed with care team. at bedside updated, questions answered.
--- NOTE | 2024-07-01 08:16 | W.PN.INTV ---
Today's Communication / Plan
Recommendations
Follow-up CTA A/P to assess LP hematoma for active extravasation per vascular surgery
Avoid narcotics as he remains lethargic
Trend H&H --> transfused 1 U this AM for Hb 7.3 from 8.6 yesterday evening
Keep MAP >65
Continue basal�bolus SQ insulin with goal BG 140�180
Diabetic INSTRUMENTATION AND CONTROL TECHNICIAN on board
Check stool Hemoccult
If patient remains off vasopressors and H&H stable for today then will downgrade to IMU. Once downgraded then we will sign off. Please call back with any additional questions or concerns.
Assessment
-
63 old gentleman with known history of LV EF 10 to 15% and pulmonary hypertension was scheduled for arteriogram in the OR. Post induction with propofol, patient developed progressive hypotension followed by a PEA arrest and CPR was started.
Subsequently patient developed ventricular tachycardia and at some point ventricular fibrillation requiring ongoing CPR and defibrillation. Eventually ROSC was achieved and patient was transferred to ICU, intubated and on mechanical ventilation.
Traffic Assistant consult was requested for further management. Prior to this event, patient has been in the hospital for a gangrenous right foot status post ray amputation and has been on meropenem for MSSA bacteremia with sepsis. Stays also
complicated by choledocholithiasis status post ERCP and stone retrieval.
#1. Cardiac arrest on 06/24/2024 with PEA followed by Ventricular Tachycardia followed by Polymorphic VT/V Fib
-Hypotension and PEA arrest post induction with Propofol during OR case for an arteriogram. S/p 3 rounds of ACLS and 4 defibrillations followed by ROSC
-Successfully extubated 06/27
-Amiodarone to PO 200 mg bid
-Target K >4 and Mg >2
-Telemetry
-ECHO reviewed, EF 10-15% with Estimated PAP 62 mm
-Cardiology on board. Defer ischemic evaluation to cardiology depending on his neurological recovery
-Initial CT head negative for acute changes
-Targeted temperature management with goal to keep normothermia and avoid fever --> completed
-Keep MAP>65
#2. Shock, cardiogenic and also vasoplegia post cardiac arrest
-Resolved, off vasopressors since 06/26
-Known h/o LV failure and Severe Pulmonary HTN
-Continue Meropenem given his diabetic foot wound with recent MSSA bacteremia
#3. Severe non-ischemic cardiomyopathy with EF 10-15% with Pulmonary HTN (62mm) with LV Thrombus
-Cardiology service on case --> defer GDMT to them
-Monitor I/O closely
-Heparin drip on hold given L-sided RP hematoma seen on CT A/P with IV contrast from 06/30/2024
-Continue PO Lasix
-Replete K>4, Mg>2
#4. Posterior RUL/RLL Aspiration pneumonia vs Pneumonitis
-Continue Meropenem
-Serial CXR
#5. 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
-ID service on case. Bacteremia has since resolved
-Podiatry service and Vascular service on case, likely will need definitive treatment in coming days/weeks
-Heparin gtt on hold due tp RP bleed; continue when feasible per vascular surgery with stable H/H and stable RP hematoma
#6. Concern for ischemic/Anoxic encephalopathy
-Patient more awake, alert and successfully extubated to BiPAP on 06/27--> still slow to respond but is awake as of 07/01
-Brief eye contact intermittently, otherwise no meaningful communication
-?Delirium vs residual anoxic injury. In view of persisting poor mental status, MRI completed 06/29, without any significant finding
-Minimize sedation, off Buspirone since 06/27; off seroquel since 06/29
-Neurology service on case, likely will need f/u EEG (last on 06/26/2024 showing diffuse cortical dysfunction with no seizures recorded)
- At baseline per , he is normally an active male and fully functional
#7. DM2 (uncontrolled: HbA1c: 10.8 on 06/19/2024)
-Insulin transitioned to basal-bolus (off insulin gtt since 06/27)
-TF now at goal
-Adjust SQ insulin to keep BG at goal of 140-180
#8. Anemia - likely due to RP-hematoma
-There has been intermittent oozing noted from the foot, status post dressing change
-Hematocrit dropped noted even without episodes of bleeding from the foot, elevated BUN/creatinine ratio,? Occult GI bleed
-Increased PPI to 40 twice daily (GI has seen the pt and signed off on 06/22/2024)
-Check stool guaiac - stool is paulino in color
-Continue to monitor H&H
-CT abd/pelvis shows evidence of large left retroperitoneal hematoma per CT on 06/30/2024 --> vascular consulted and CTA A/P pending this AM (07/01)
- Holding ASA and heparin gtt for now --> will resume once H/H stable and RP hematoma also considered not at risk for continued expansion
GI Prophylaxis: IV PPI
If patient remains off vasopressors and H&H stable for today then will downgrade to IMU. Once downgraded then we will sign off. Please call back with any additional questions or concerns.
Total time spent today was 78 minutes for this encounter. Time includes reviewing laboratory test/imaging results, reviewing pertinent medical records, obtaining and reviewing medical history, performing an appropriate exam, ordering medications,
tests and procedures. Time also includes documentation of this encounter, coordinating patient care and communicating with other healthcare professionals. Total time does not include separately billed tests performed on this date of service.
Data:
ECHO 06/2024: Normal left ventricular chamber size. Severely reduced left ventricular
systolic function. Mild concentric left ventricular hypertrophy. Severe global
hypokinesis with possible inferior and apical akinesis. Left ventricular
ejection fraction is 10-15 % by visual estimate.
Mitral valve opens normally. Thickened mitral valve leaflets. Mitral annular
calcification. Mild mitral regurgitation.
Moderately dilated left atrium.
Tricuspid valve opens normally. Moderate tricuspid regurgitation. Estimated
pulmonary artery pressure of 62 mmHg assuming a right atrial pressure of 3
mmHg.
Moderately dilated right atrium.
Right ventricle appears mildly dilated and hypokinetic.
Small pericardial effusion without evidence of hemodynamic compromise.
Since echocardiogram 06/20/2024, there is no significant change.
CXR 06/24/2024
Endotracheal tube with tip in trachea above the salazar. No pneumothorax.
Patchy right lung opacity which could represent pneumonia/pneumonitis.
Nasogastric tube with tip in proximal stomach.
Brain MRI 06/29/2024: No clear MRI evidence for an acute intracranial abnormality within the significant limitations of extensive motion artifact during this exam.
Subjective Dataa
Subjective Data
Date of Service:
Date of Service: July 01, 2024
Chief Complaint: Traffic Assistant Follow Up
Subjective:
Pt seen and evaluated this AM. Patient transfused 1 unit PRBC this morning due to Hb of 7.3 from 8.6 yesterday evening. No active bleeding seen at bedside. He is having paulino-colored stool. Patient's , Sara, at bedside and all questions were
answered. He is awake but very sleepy at times. Currently on tube feeds at 75 cc/hour, with BP 153/98, heart rate 102 and saturating 97% on 2 L/min. Currently on tube feeds at 75 cc/hr.
Review of Systems
General: Other (Unable to obtain as patient is sleepy/lethargic)
Objective Data
Data Reviewed
Vital Signs / I&O / Oxygen:
Vital Signs
Temp Pulse Resp BP Pulse Ox
97.2 F 67 17 138/82 89
07/01/24 07:25 07/01/24 06:00 07/01/24 06:00 07/01/24 06:00 07/01/24 06:00
Intake and Output
06/30/24 07/01/24 07/02/24
06:59 06:59 06:59
Intake Total 2879 / 2991 3906 / 3906
Output Total 1650 / 1650 2725 / 2725
Balance 1229 / 1341 1181 / 1181
SaO2 [P-SIMV] 100
SaO2 [A/C] 100
SaO2 89
Nasal Cannula flow liters per 2
minute
Physical Exam
General: Respiratory Distress (negative), Comfortable, Chills (negative) and Sweats (negative)
HEENT: Normocephalic
Cardiovascular: S1-S2 and Peripheral Edema (negative)
Respiratory: Wheeze (negative), Crackles (Bibasilar), Rhonchi (negative), Non-Labored Respirations and Stridor (negative)
GI: Soft, Non Distended, Non Tender and Normal Bowel Sounds
Neurology: Tremors (negative), Lethargic (Sleepy) and Other (No meaningful communication)
Skin: Warm, Dry, Cyanosis (negative) and Jaundice (negative)
Labs/Micro/Reports
Lab Data
07/01/24 04:00
07/01/24 04:00
Laboratory Results
06/30/24 06/30/24
11:04 17:59
APTT 60.2 H 78.0 H
[2024-07-01 08:43] LABS: Glucose - Point of Care 214 mg/dl (70-99)
--- NOTE | 2024-07-01 08:43 | PN.DE.MGMTRT ---
Insulin Management
- -
07/01/2024: Diabetes Management Follow up
63 year old male who presented to ER on 06/18/24 with report of AMS changes, of staring, garbled speech, confusion, and balance difficulty lasting an unclear amount of time. Of note, pt was recently admitted at [facility] for LV thrombus
and HFrEF (on Coumadin).
PMH: NICM, mild MR, HTN, Hypercholesterolemia Renal insufficiency, RLE Cellulitis, nicotine use and IDDM. Prior to admission was taking Levemir 20 units BID, Humalog 5 units AC and Farxiga 10mg daily prior to admission. A1C 10.8%.
Pt was also noted for a chronic nonhealing left foot wound as well as a more acute gangrenous left hallux and associated foot infection. He underwent a partial first ray resection on 06/23.
OR 06/24/24 for RLE percutaneous revascularization. Upon anesthesia induction patient PEA/Vfib arrested and underwent ACLS until ROSC was achieved and procedure was aborted.
Patient awake, alert, resting in bed, offers no complaints, unable to interview, Dtr- Elisabeth at bedside.
Information obtained from chart review and Nurse. Cr 1.4-->1.2, eGFR >60 today.
Pt Failed Speech eval on 06/28, recommend to resume tube feeds, started Jevity @10cc/hr--> now at goal 75cc/hr, contributing to Hyperglycemia.
Glucose trended up to 358, pt received several doses of Lantus and NovoLog throughout the day and night.
FBG this AM is 258(V). He has received 6 units of Lantus this AM. Will give an additional 10 units of Lantus this morning and increase dose to 15 units BID.
Will start NovoLog 8 units Q6 hrs while on TF. Cont NovoLog moderate corrective Q 6 hours.
Discussed with ICU rounding team and nurse. Will cont to follow.
Diabetes History
- -
Type of Diabetes: 2 requiring insulin
Pre-Admission Diabetes Regimen
07/01/24
04:00
Creatinine 1.2
Lab Results
Hemoglobin A1c 10.8 % (4.0-5.6) H 06/19/24 05:43
Insulin Pump Settings
IP Diabetes Regimen
06/30/24 06/30/24 06/30/24
11:49 17:27 23:19
Glucose
POC Glucose 254 H 248 H 353 H
07/01/24 07/01/24 07/01/24
02:10 04:00 05:42
Glucose 258 H
POC Glucose 358 H 265 H
Patient Education
[2024-07-01] MEDS: FARXIGA 10 MG TUBE (08:54)
[2024-07-01] MEDS: PACERONE 200 MG TUBE (08:54)
[2024-07-01] MEDS: LANTUS 0.06 UNITS SC (08:54)
[2024-07-01] MEDS: LASIX 40 MG PO (08:55)
[2024-07-01] MEDS: PROTONIX IV 40 MG IV ×2 (08:55→19:55)
[2024-07-01] MEDS: NSS (PRESERVATIVE FREE) 10 ML IV ×2 (08:55→19:55)
[2024-07-01] MEDS: KCL ELIXIR 20 MEQ TUBE (08:55)
[2024-07-01] MEDS: COREG 12.5 MG TUBE (08:55)
[2024-07-01] MEDS: SENNA SYRUP TUBE (08:56)
[2024-07-01] MEDS: MIRALAX TUBE (08:56)
--- NOTE | 2024-07-01 09:57 | W.PN.CARDCBS ---
Addendum entered and electronically signed by Bola Hernandez MD 07/01/24 11:55:
I saw and examined the patient.
The DOOR WORKER or PA's note was reviewed and I agree with the note.
Comment: General: Awake but confused
Neck: Supple, no JVD, HJR, carotids +2 B/L, no bruits bilaterally.
Heart: Non displaced PMI, RRR, no murmurs, No S3, S4, no rubs.
Lungs: Scattered rhonchi
Extremities: No clubbing, cyanosis or edema bilaterally.
Neuro: Awake but confused
Heparin drip on hold due to left-sided retroperitoneal hematoma.
If patient made a meaningful neurologic recovery could consider ischemic evaluation with catheterization and AICD.
Original Note:
Today's Communication / Plan
-
Heparin gtt on hold due to left-sided retroperitoneal hematoma
LV clot seen at [facility] earlier this month was not seen on repeat echo this admission
Awaiting neurologic recovery, there was evidence of a tiny subacute/acute right semiovale stroke on MRI on admission
Impression / Plan
-
PCP: Dr. Sherwood
Cardiology: Dr. Ny, last seen 06/2022
Impression:
Intraoperative PEA/ventricular fibrillation arrest 06/24/2024
Admitted with confusion and acute HFrEF 06/18/24
Tiny nonhemorrhagic acute/subacute infarct in the right periventricular white matter/centrum semiovale region by MRI 06/19/2024
Recent admission to [facility] for acute HF and foot wound 06/06/24 until 06/12/24
Hypotension
Acute HFrEF
CM EF 15% by echo at [facility] 06/07/24
h/o improved NICM EF 25% by echo 03/2018 and then improved to 40% by echo 06/2022
Nonobstructive CAD by cath 2017
Medication noncompliance
Newly diagnosed LV thrombus
1.5 x 1.2 cm LV apical clot on echo at [facility] 06/07/24
Chronic warfarin managed by [facility]
started for LV clot 06/07/24
Supratherapeutic INR on admission
Hyponatremia
GHAZAL on CKD 3a
Elevated LFTs
Chews tobacco
Unwitnessed fall 06/20/2024
tele reviewed and no arrhythmia
Hyperglycemia
Anemia
Left retroperitoneal hematoma by CT 06/30/24
Echo 05/30/2024: [facility] study, EF 15 to 20%, severe global hypokinesis and septal dyskinesis, small and organized thrombus in the LV apex measuring 1.5 x 1.2 cm, grade 3 diastolic dysfunction, at least mildly dilated RV with reduced
systolic function, mild to moderate MR, mild pericardial effusion seen posteriorly without evidence of tamponade
Echo 06/20/24 with IV echo contrast: LV ejection fraction severely reduced, 15-20% with global hypokinesis. Dilated, hypokinetic right ventricle. Biatrial dilatation. Mild MR. Mild to moderate TR. Estimated pulmonary artery systolic pressure
50-55 mmHg. Small pericardial effusion without evidence of hemodynamic compromise. No LV apical thrombus
Plan:
-CT abd/pelvis on 06/30/24 showed a large left sided retroperitoneal hematoma, Heparin gtt and aspiring now on hold
-Patient with new LV clot by echo at [facility] 05/30/2024. Echo repeated with [facility] at 06/20/24 and no evidence of LV apical thrombus.
-Patient then had MRI brain 06/20/24 that showed a tiny nonhemorrhagic acute/subacute infarct in the right periventricular white matter/centrum semiovale region. Neurology saw the patient and felt that this may have been an incidental finding as the
patient was felt to be cognitively intact without functional decline, but had an episode of confusion with garbled speech on admission.
-When patient had LV clot identified at [facility] he was started on warfarin, warfarin was held during this admission to allow for ERCP that was performed on 06/21/2024 and patient was bridged with heparin. Heparin gtt now on hold due to
evidence of a large left-sided retroperitoneal hematoma on CT scan 06/30/2024
-Patient then had intraoperative PEA/VF arrest 06/24/24. Patient had been given propofol and fentanyl and had undergone vascular access, but no other instrumentation at the time of his event. Patient had CPR with 4 shocks, magnesium IV, amiodarone
300 mg and then 150 mg and then ROSC. He then underwent TTM and was warmed on 06/26/2024.
-No recurrence of ventricular arrhythmia, but he has been maintained on amiodarone 200 mg BID, he has received a 2.4 gram PO load as of 07/01/2024. QTc 481 ms by ECG 07/01/2024 as reviewed by me
-EF was 15% by echo at [facility] in 05/30/2024. Patient with known history of an ICM and EF down to 25% in 2018, then improved to 40% by last echo 06/2022 followed by noncompliance for unclear reasons and EF now down to 15%.
-No CP, but consideration for repeat ischemic evaluation given recurrent CM and cardiac arrest. Patient had nonobstructive CAD by cardiac cath in 2018
-Also need to consider eventual ICD prior to d/c. ID following and remains on antibiotics for MSSA bacteremia
-Outpatient dose of Coreg 12.5 mg BID has been resumed and patient tolerating doses thus far
-Outpatient dose of Entresto 97/103 mg BID has been on hold since admission due to hypotension
-Outpatient dose of spironolactone 25 mg daily has been on hold since admission due to hypotension
-Outpatient dose of Farxiga 10 mg daily has been on hold since code
-[facility] manages INRs that are drawn at [facility] and the goal is 2-3.
-Previously talked with patient's daughter by phone for 19 minutes on 06/19/24, she is in school to become an RN. It sounds as though patient is noncompliant at home and is dismissive and angry towards family who tried to help him. Patient retired
from his job recently and it sounds as though that is when most of the medication noncompliance started. Patient denies drinking and his family confirms this.
Summary of admission thus far: Admitted with change in mental status and found to have small nonhemorrhagic right hemispheric CVA, recently hospitalized with LV thrombus and acute and chronic HFrEF with left lower extremity wound infection. Also
with choledocholithiasis, status post ERCP and sphincterotomy with stone extraction 06/21/24. Underwent debridement of left foot wound and partial first ray amputation with podiatry on 06/23/24. Then taken to the vascular OR on 06/24/24 for peripheral
angiogram and possible intervention and upon induction of anesthesia had pulseless electrical activity degenerating into VF requiring ACLS and ultimately return of spontaneous circulation. Patient had TTM and was eventually extubated, but has not
recovered neurologically. Patient has also been receiving treatment for acute HFrEF during hospital stay.
HPI: Patient came to [facility] from home yesterday with confusion and garbled speech and was admitted for acute HF and cardiology has been consulted. Patient is a poor historian and gave me permission to call his daughter. Also reviewed 67 pages of
records from recent [facility] admission. Patient had NICM diagnosed in 2018 and with GDMT his EF improved to 40% by last echo at in 06/2022. Patient then stopped coming to cardiology appts at , but reportedly did not start following elsewhere.
Patient then retired and stopped taking his medications on a regular schedule despite reminders from family. Patient started with LE wounds 02/2024 and following with wound care center and seemed to be improving. Patient then started with a cough
and saw his PCP 05/02/24 and lungs were clear and he was started on promethazine and albuterol. Patient was then admitted to [facility] with SOB 06/06/24 and during that admission was found to have EF down to 15% and he had a new LV clot and was started
on warfarin. Patient was also d/c'd to home on Coreg, Entresto and spironolactone which are meds he had been on when he was last seen in the cardiology office in 2022. Patient was diuresed with Lasix IV and d/c'd to home on Lasix 40 mg PO BID.
Patient's daughter reports that patient was not taking meds at home and when VN came to see him he had garbled speech and was sent to the ER.
Progress Note - Director Traffic And Planning
Subjective
Date of Service: July 01, 2024
Denies pain
Objective
Labs:
07/01/24 04:00
Labs
Hgb 7.3 g/dL (13.0-18.0) L 07/01/24 04:00
Hct 21.7 % (39.0-52.0) L 07/01/24 04:00
Plt Count 203 10^3/uL (130-400) 07/01/24 04:00
PT 18.8 Sec (11.4-14.6) H 06/27/24 03:27
INR 1.52 06/27/24 03:27
APTT 78.0 Sec (23.4-35.0) H 06/30/24 17:59
Sodium 141 mmol/L (135-145) 07/01/24 04:00
Potassium 3.7 mmol/L (3.5-5.1) 07/01/24 04:00
BUN 68 mg/dl (9-20) H 07/01/24 04:00
Creatinine 1.2 mg/dL (0.7-1.3) 07/01/24 04:00
Glucose 258 mg/dl (70-99) H 07/01/24 04:00
Vital Signs and I&O:
Vital Signs
Temp Pulse Resp BP Pulse Ox
98.6 F 102 17 153/98 98
07/01/24 08:58 07/01/24 09:00 07/01/24 09:00 07/01/24 09:00 07/01/24 09:00
Vital Signs
Temp Pulse Resp BP Pulse Ox
98.6 F 102 17 153/98 98
07/01/24 08:58 07/01/24 09:00 07/01/24 09:00 07/01/24 09:00 07/01/24 09:00
Intake & Output
06/29/24 06/30/24 07/01/24 07/02/24
06:59 06:59 06:59 06:59
Intake Total 811 / 857 2879 / 2991 3906 / 3906 250 / 250
Output Total 2190 / 2190 1650 / 1650 2725 / 2725
Balance -1379 / -1333 1229 / 1341 1181 / 1181 250 / 250
Physical Exam
Physical Exam
GEN: NAD. Awake and alert
HEENT: MMM
LUNGS: 2 L NC. No audible wheeze
CV: SR with PVCs on tele.
ABD: ND
EXT: Trace B/L LE edema. B/L calf wounds and left foot wound.
SKIN: No rash
--- NOTE | 2024-07-01 10:27 | W.PN.VS ---
Today's Communication / Plan
-
Seen and assessed with Dr. Orosco
Assessment/Plan
-
Assessment: 63-year-old male admitted to hospital for bacteremia and left hallux gangrene attempted left lower extremity angiogram on 06/24/2024, however patient had cardiac arrest on induction of anesthesia and OR case was aborted, currently in ICU
for TTM postarrest.
Plan:
Patient having continual hemoglobin drops over the past few days even with multiple units of blood given. CT abd/pelvis last night showed large left retroperitoneal hematoma measuring 13.0 x 12.4 x 3.3 cm. Intramuscular hematoma in the bilateral
psoas and iliacus muscles.
Hep gtt and ASA placed on hold since last evening
CT Angio abd/pelvis pending this morning*will follow-up with patient's family and team with plan after scan complete
Subjective Data
-
Date of Service: July 01, 2024
Patient seen at bedside same Dr. Orosco. Last evening CT abdomen/pelvis completed for continual hemoglobin drops over the last few days. Suggested large RP hematoma. Patient stable at this time. No other events overnight
Objective Data
-
Vital Signs
Temp Pulse Resp BP Pulse Ox
98.6 F 102 17 153/98 98
07/01/24 08:58 07/01/24 09:00 07/01/24 09:00 07/01/24 09:00 07/01/24 09:00
Intake and Output
06/30/24 07/01/24 07/02/24
06:59 06:59 06:59
Intake Total 2879 / 2991 3906 / 3906 250 / 250
Output Total 1650 / 1650 2725 / 2725
Balance 1229 / 1341 1181 / 1181 250 / 250
Intake:
IV fluids (Total) 299 / 311 156 / 156
heparin 299 / 311 156 / 156
Tube feeding 1140 / 1215 1800 / 1800
Feeding tube flush amount 600 / 625 1450 / 1450
Amount instilled into GI Tube ( 40 / 40
Total)
Dubois Sump 40 / 40
Blood Products 300 / 300
Packed red blood cells 300 / 300
Blood Product Amount Infused ( 500 / 500 500 / 500 250 / 250
mL)
Packed Rbc Leukoreduced Unit 250 / 250
[id number]
Packed Rbc Leukoreduced Unit 250 / 250
[id number]
Packed Rbc Leukoreduced Unit 0 / 0 250 / 250
[id number]
Packed Rbc Leukoreduced Unit 250 / 250
[id number]
Packed Rbc Leukoreduced Unit 250 / 250
[id number]
Output:
Urine, Voided 1650 / 1650 2725 / 2725
Lab Results
07/01/24 04:00
Calcium 7.6 mg/dl (8.4-10.2) L 07/01/24 04:00
Phosphorus 3.7 mg/dl (2.5-4.5) 07/01/24 04:00
Magnesium 2.3 mg/dl (1.6-2.3) 07/01/24 04:00
Total Bilirubin 1.8 mg/dl (0.2-1.3) H 06/27/24 03:27
Direct Bilirubin 0.6 mg/dl (0.0-0.4) H 06/27/24 03:27
AST 36 U/L (17-59) 06/27/24 03:27
ALT 30 U/L (0-50) 06/27/24 03:27
Alkaline Phosphatase 187 U/L (38-126) H 06/27/24 03:27
Total Protein 4.8 g/dl (6.3-8.2) L 06/27/24 03:27
Albumin 2.1 g/dl (3.5-5.0) L 06/27/24 03:27
Physical Exam
-
Awake and alert
Mild tachycardia 102
No tachypnea
Abdomen soft
Bilateral groins flat, soft, no ecchymosis or edema noted
No meaningful communication, unsure If patient has any pain in the abdomen with palpation
[2024-07-01 11:14] LABS: Glucose - Point of Care 171 mg/dl (70-99)
[2024-07-01] MEDS: LANTUS 0.1 UNITS SC (11:17)
[2024-07-01] MEDS: NOVOLOG FLEXPEN-MODERATE RESISTANCE 1 UNITS SC (11:19)
--- NOTE | 2024-07-01 11:26 | W.PN.ID1 ---
Date of Service
Date of Service: July 01, 2024
Today's Communication
Narrow meropenem to cefazolin.
Assessment / Plan
MSSA Bacteremia
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
PEA/v fib arrest 06/24
Acute large left retroperitoneal hematoma with blood-loss anemia
CVA
Encephalopathy - Brain MRI no acute pathology
Dm2; uncontrolled
Leukocytosis
- 06/21 and 06/22 blood cultures remain no growth to date
- TTE without vegetations but plan empiric treatment for possible endocarditis
- Repeat TTE when feasible, would recommend AICD placement after completion of treatment for possible endocarditis
- Consider MRI left foot when medically stable.
- Toe swab cx MSSA. Toe amp path: viable margin
- Narrow meropenem (d#9) to cefazolin 2g IV q8.
- will likely require a course of home IV antibiotics, transition pending further management of foot infection
-Follow wbc
- PAD CT angio a/p today per vascular.
Choledocholithiasis s/p ERCP with 06/21
- has completed an adequate course,
����������������������������������������������������������
Chief Complaint
-: Other (wet gangrene left hallux, mssa bacteremia, possible endocarditis)
Subjective / Review of Systems
No pain.
Vital Signs / Physical Exam
Vital Signs
Vital Signs
Temp Pulse Resp BP Pulse Ox
98.6 F 102 17 153/98 98
07/01/24 08:58 07/01/24 09:00 07/01/24 09:00 07/01/24 09:00 07/01/24 09:00
Physical Exam
Constitutional: Comfortable
Head: Other (NGT in place)
Cardiovascular: Regular Rate and S1/S2
Pulmonary: Clear
Gastrointestinal: Soft, Non Tender and Non Distended
Extremities: Negative Edema
Neurological: Awake and Alert
Objective Data
Lab Data
Lab Results
07/01/24 04:00
PT 18.8 Sec (11.4-14.6) H 06/27/24 03:27
INR 1.52 06/27/24 03:27
APTT 78.0 Sec (23.4-35.0) H 06/30/24 17:59
Estimated Creat Clear 75 ml/min 07/01/24 04:00
Lactic Acid 1.0 mmol/L (0.7-2.0) 06/26/24 08:48
Total Bilirubin 1.8 mg/dl (0.2-1.3) H 06/27/24 03:27
AST 36 U/L (17-59) 06/27/24 03:27
ALT 30 U/L (0-50) 06/27/24 03:27
Alkaline Phosphatase 187 U/L (38-126) H 06/27/24 03:27
Most recent labs reviewed.
Micro Results:
06/22/24 13:23 Blood Culture - Final
Blood/Venous No Growth - Final Report
06/21/24 09:33 Blood Culture - Final
Blood/Venous No Growth - Final Report
06/22/24 14:36 Wound Culture - Final
Abscess S aureus-Methicillin Sensitive
Gram Stain - Final
06/20/24 00:42 Blood Culture - Final
Blood/Venous S aureus-Methicillin Sensitive
Gram Stain - Final
06/20/24 01:59 Blood Culture - Final
Blood/Venous S aureus-Methicillin Sensitive
Gram Stain - Final
06/18/24 16:51 Urine Culture - Final
Urine NO GROWTH
06/18/24 16:11 Influenza Types A & B (HUBER) - Final
Nasal Swab Negative for Influenza A & B, NAAT
Negative results must be combined with clinical observations
and patient history.
Nucleic Acid Amplification test (NAAT)performed on the
Advanced Telemetry NOW platform.
Imaging:
06/24/2024 ECHO (TTE): Normal LV chamber size. Severely reduced LV systolic function with EF approximately 10 to 15%. Severe global hypokinesis. Mitral valve opens normally, but is noted to have thickened leaflets and mitral annular calcification.
Mild mitral regurgitation. Please see full dictation for additional detail.
06/30/24 Brain MRI: No clear MRI evidence for an acute intracranial abnormality within the significant limitations of extensive motion artifact during this exam.
[2024-07-01 13:08] LABS: Hematocrit 24.2 % (39.0-52.0); Hemoglobin 8.2 g/dL (13.0-18.0)
--- NOTE | 2024-07-01 13:19 | WOUNDNOTE ---
L 5TH MTH (LATERAL)
--- NOTE | 2024-07-01 13:27 | WOUNDNOTE ---
[facility] RN note: Patient admitted with CHF, confusion. Patient with MSSA bacteremia. PAD suspected. Vascular following.
See H&P for complete history.
PMH: CVA, DM
Wound Location and type/assessment: Patient admitted with: stage 2 sacral pressure injury, R heel skin fissure, R lateral calf broken blister, L posterior ankle scabbed abrasion.
Patient s/p L hallux amputation by Dr. Main on 06/23/24. Patient has a L lateral 5th MTH small red/purple ecchymotic area suspect r/t gauze/anastacia wrapping along with PAD. L PT pulse and pedal pulse heard via portable Doppler as per LIZ Vega. L side
of penis with linear dermal opening r/t condom catheter use along with edema.
Appetite: on NG tube feeding.
Pressure redistribution devices in place: Centrella Max air bed. Patient cannot turn self in bed. Air chair cushion.
Plan: L foot dressing changed after confirming wound care with Dr. Main. Foam dressing applied to heels. Silicone border foam changed on L lateral 5th MTH, L posterior ankle and R lateral calf. Sacral shaped silicone border foam maintained.
Patient incontinent of urine. Kelsie care given. Patient turned to L semi side lying position with help from LIZ Vega and PCT Ilia. Heels off bed with pillow and air chair cushion. t/c SPD and ordered bariatric air chair cushion to pad foot board.
Will confirm orders with Dr. Scott and discussed with LIZ Vega.
Care plan to be updated and will follow as needed.
Note to case management of equipment requested for discharge: Air mattress.
Recommend follow up at wound care center upon discharge.
[2024-07-01] MEDS: ANCEF 10 IV ×2 (14:02→23:00)
--- NOTE | 2024-07-01 14:56 | PTCARENOTE ---
Pt cleared for diet by speech therapist, NGT and tube feeds dc'd.
--- NOTE | 2024-07-01 15:22 | W.PN.HOSP.TC ---
Today's Communication/Plan
-
Assessment / Plan
Assessment / Plan
Physical Exam
GEN: Chronically ill-appearing, no acute distress
HEENT: EOMI, MMM
LUNGS: CTA B/L without wheeze or rales
CV: Normal sinus rhythm no murmurs gallops
ABD: soft, BS+, NT, ND, left flank ecchymosis
EXT: left foot wound dressing clean dry intact
NEURO: Awake but confused, slow to respond, nodding/shaking head in answer to yes/no questions
63M HFrEF CKD3 DM neuropathy HLD Nicotine dependence complicated hospital course with MSSA bacteremia, Left hallux gangrene, CVA suspect 2/2 cardiac emboli LV thrombus. Had partial amputation Lt Hallux Gangrene OR Podiatry 06/23. Patient was
planned for revascularization LLE 06/24 however developed PEA/Vfib arrest after anesthesia induction requiring ACLS. ROSC eventually achieved, patient was subsequently transferred to ICU intubated and requiring pressor support.
PEA/Vfib arrest following Anesthesia Induction 06/24/2024
Acute Anoxic Encephalopathy vs Delirium
-Underwent 3 rounds of ACLS and 4 defibrillations as per Cardio before ROSC was achieved
-CT head appreciated no acute abn's
-ECHO post-code appreciated EF 10-15% no significant change from prior ECHO 06/20/24
-transferred to ICU intubated and on pressor support, poor neurologic recovery noted then, unresponsive off sedation
-amiodarone gtt transitioned to PO via ngt
-weaned off pressor support
-TTM completed, mental status improving
-Extubated 06/27
-Reevaluated by SENIOR ASP NET DEVELOPER 07/01 who recommended okay for p.o. diet, started pur�ed diet, NG tube discontinued
-Brain MRI 06/29/24 noted no acute abn though limited study d/t motion defects
#reported hx LV thrombus
-Dx 2 weeks prior to arrival at [facility], suspect due to severely depressed LVEF
-Started on Coumadin anticoagulation 06/07/2024 for LV apical thrombus
-Coumadin on hold, had been on hep gtt for potential procedures however heparin now held due to large left-sided retroperitoneal hematoma
Left retroperitoneal hematoma:
-Large but stable on repeat imaging today 07/01
-Continue holding anticoagulation
Progressive/persistent Anemia
-Secondary to blood loss from procedures and retroperitoneal hematoma
-Status post transfusion 10 units so far this admission
-monitor H&H and transfuse as necessary Hgb<7.5
-Protonix IV 40 mg BID
# MSSA bacteremia
-Blood cultures from 06/20 positive for MSSA [correction to prior documentation], repeat cultures from 06/22 also positive
-Suspect secondary to left hallux wet gangrene, which itself is suspected due to embolic effect, status post amputation
-Antibiotics now narrowed to cefazolin 2 g IV every 8 hours, will likely need home IV antibiotics after discharge
-Appreciate guidance from ID and podiatry
-strict NWB and elevation LLE as per Podiatry
#Left hallux gangrene:
-Suspect secondary to embolism as also caused stroke
-wound cx pos MSSA
-Status post partial amputation in the OR with podiatry 06/23
-Planned for revascularization 06/24 aborted d/t PE/Vfib arrest as above
-Continue local wound care, antibiotics with cefazolin
#CVA
- Suspect secondary to cardiac emboli
� Acute/subacute infarct in the right periventricular white matter/centrum semiovale region
� Currently holding anticoagulation due to large left retroperitoneal hematoma
� Neurology consult appreciated
� Carotids unremarkable
- hold PT OT d/t critical illness requiring ICU care as above
#Acute on chronic HFrEF
EF 15-20%
-Cardio eval appreciated Lasix and Coreg restarted following wean off pressors.
-Farxiga resumed, cont
#Choledocholithiasis
-ERCP 06/21 with stone identified and removed and biliary sphincterotomy performed
-GI eval appreciated
#Transaminitis
� Secondary to choledocholithiasis, ERCP performed 06/21
� Resolving after ERCP
#GHAZAL
-Initial creat 1.6 since improved
-CKD III ruled out with resolution GHAZAL
-monitor
#DM 2/diabetic neuropathy
-Uncontrolled, hemoglobin A1c 10.8% this admission
-DM INSTRUMENTATION AND CONTROLS TECHNICIAN eval appreciated
-insulin gtt transitioned to subq
-Farxiga resumed
-Gabapentin 600 mg daily on hold d/t Encephalopathy as above
#Constipation
cont Miralax and Sennosides, consider Lactulose if no improvement
#Mild Hyponatremia
monitor
#HLD
-Continue statin
#Nicotine dependence
DVT prophylaxis SCDs
Full code
Guarded Prognosis
Anticipated Discharge: > 48 hours
Subjective/Interval History
-
Date of Service: July 01, 2024
Patient was seen and examined at bedside this morning. Mental status is still not at baseline, slow to respond and confused. Receiving another unit of PRBCs this morning due to drop in hemoglobin and large left retroperitoneal hematoma.
Objective Data
-
Labs:
Laboratory Results
07/01/24 07/01/24
04:00 13:00
WBC 17.7 H
Hgb 7.3 L 8.2 L
Hct 21.7 L 24.2 L
Plt Count 203
Sodium 141
Potassium 3.7
Chloride 106
Carbon Dioxide 28
BUN 68 H
Creatinine 1.2
Glucose 258 H
Calcium 7.6 L
Vital Signs:
Vital Signs
Temp Pulse Resp BP Pulse Ox
97.4 F 72 19 124/73 95
07/01/24 15:08 07/01/24 14:00 07/01/24 14:00 07/01/24 14:00 07/01/24 14:00
I&O
06/30/24 07/01/24 07/02/24
06:59 06:59 06:59
Intake Total 2879 / 2991 3906 / 3906 470 / 470
Output Total 1650 / 1650 2725 / 2725 250 / 250
Balance 1229 / 1341 1181 / 1181 220 / 220
Review of Systems
-
Unable to obtain full review of systems at this time due to: Acuity
Physical Exam
-
General: No Apparent Distress
--- NOTE | 2024-07-01 15:26 | PTOTSP ---
Dysphagia Therapy
Impression: Suspect at least mild oral/pharyngeal dysphagia. Risk elevated given AMS, dependence for feeding, and concern for deconditioning with prolonged NPO status. Video swallow study would be difficult at this time given patient extremely
restless/mobile in bed while on b/l wrist restraints and w/ poor safety awareness secondary to significant cognitive deficits.
Recommend:
1. IDDSI Level 4 Puree, IDDSI Level 0 Thin Liquids
2. Medications: crushed in puree if medically cleared to do so
3. Oral care 3-5x daily
4. Strategies: Full supervision/assistance, SMALL single sips (pinch straw), slow rate, check for oral clearance
5. Dysphagia tx at the acute care level for carry over of strategies, to trial advanced consistencies, and to determine if/when video swallow appropriate
--- NOTE | 2024-07-01 16:01 | CM ---
CM following re: discharge planning.
Discussed in Rounds, reviewed pt's chart, met with pt.
PT and OT will evaluate the pt when clinically appropriate to determine a level of care at discharge. PM&R following.
D/C plan: original plan was [facility]. [facility] clinical rehabilitation specialist following.
CM will follow with discharge plan updates as hospitalization progresses
--- NOTE | 2024-07-01 17:02 | PTCARENOTE ---
Pt was sent for stat abd CT with angiography to r/o active retroperitoneal bleed, result noted and communicated to vascular FOUNDATION DRILL OPERATOR. Pt returned to room, was cleared for diet by speech, orders rec'd. Pt did have approx 19 beat run of NSVT at 15:17, MD
notified. Strip posted to chart. Pt will remain ICU level at this time per MD. career resource specialist in room to assess pt, orders rec'd. Multipodus boots applied by RN. Pt remains very restless and thrashing in the bed, moaning out loud, not totally
purposeful, but mostly pleasant. Requires very frequent repositioning in the bed, very stiff and rigid, pushes back on staff. remains at bedside, adult children in to visit. B/l soft wrist restraints remain in place.
[2024-07-01 17:44] LABS: Glucose - Point of Care 131 mg/dl (70-99)
[2024-07-01] MEDS: NOVOLOG FLEXPEN SC (18:28)
[2024-07-01] MEDS: NOVOLOG FLEXPEN-MODERATE RESISTANCE SC (18:29)
--- NOTE | 2024-07-01 18:30 | PTCARENOTE ---
Pre meal accucheck 131 -Novolog coverage still ordered as Q6 from prior-discussed with pharmacist, holding standing Novolog coverage at this time, pt not meeting parameters for SS coverage; pt fed approx of puree dinner tray; pineapple, water ice
and apple juice, as well as ice water. Pt again incontinent urine, linens changed and repositioned, and daughter at bedside. Pt pleasant, joking with staff, speech continues to be garbled, restraints loosely tied to maintain safety.
[2024-07-01] MEDS: SENOKOT PO (19:44)
[2024-07-01] MEDS: COREG 12.5 MG PO (19:54)
[2024-07-01] MEDS: PACERONE 200 MG PO (19:55)
[2024-07-01 21:42] LABS: Glucose - Point of Care 137 mg/dl (70-99)
[2024-07-01] MEDS: LANTUS 0.15 UNITS SC (23:00)
[2024-07-02] VITALS (25 sets, daily range): BP systolic 121–163; BP diastolic 72–108; BMI 27.4
[2024-07-02 05:17] LABS: Hematocrit 23.9 % (39.0-52.0); Hemoglobin 8.2 g/dL (13.0-18.0); Mean Corp Hgb Conc. 34.3 g/dL (33.0-37.0); Mean Corpuscular Hgb 30.5 pg (27.0-31.0); Mean Corpuscular Volume 88.8 fL (80.0-94.0); Mean Platelet Volume 10.6 fL (7.4-10.4); Platelet Count 208 10^3/uL (130-400); Red Blood Cell Count 2.69 10^6/uL (4.70-6.10); Red Cell Dist. Width 16.5 % (11.5-14.5); White Blood Cell Count 13.5 10^3/uL (4.8-10.8)
--- NOTE | 2024-07-02 05:41 | PTCARENOTE ---
family in room with patient, assessments completed. patient alert and verbal, will mimick your words and phrases, continues to yell out. patient is restrained for safety as he has pulled at his tubes and lines.
spoke with MILADY lucero, now that pt is on ac hs blood sugar and eating dm diet, scheduled insulin is d/c and new order for sliding scale placed.
patient having no pain at this time, family remains at bedside.
--- NOTE | 2024-07-02 05:43 | PTCARENOTE ---
patient had 2 episodes of incontinence, full bed bath,
labs drawn and sent, no new orders at this time.
[2024-07-02 05:44] LABS: Blood Urea Nitrogen 64 mg/dl (9-20); Calcium 7.9 mg/dl (8.4-10.2); Carbon Dioxide 31 mmol/L (22-30); Chloride 108 mmol/L (98-107); Estimated Creatinine Clearance 82 ml/min; Glucose 148 mg/dl (70-99); Magnesium 2.2 mg/dl (1.6-2.3); Phosphorus 3.3 mg/dl (2.5-4.5); Potassium 4.2 mmol/L (3.5-5.1); Sodium 143 mmol/L (135-145); eGFR > 60.00
[2024-07-02] MEDS: ANCEF 10 IV ×3 (07:20→21:32)
[2024-07-02 07:43] LABS: Glucose - Point of Care 156 mg/dl (70-99)
[2024-07-02] MEDS: LANTUS 0.15 UNITS SC ×2 (07:44→21:32)
[2024-07-02] MEDS: PROTONIX IV 40 MG IV (07:44)
[2024-07-02] MEDS: NSS (PRESERVATIVE FREE) 10 ML IV (07:44)
[2024-07-02] MEDS: KCL ELIXIR 20 MEQ PO (07:44)
[2024-07-02] MEDS: LASIX 40 MG PO (07:44)
[2024-07-02] MEDS: FARXIGA 10 MG PO (07:44)
[2024-07-02] MEDS: COREG 12.5 MG PO ×2 (07:45→20:07)
[2024-07-02] MEDS: PACERONE 200 MG PO ×2 (07:45→20:07)
[2024-07-02] MEDS: SENOKOT PO ×3 (07:45→20:07)
[2024-07-02] MEDS: MIRALAX PO (07:45)
[2024-07-02] MEDS: NOVOLOG FLEXPEN-MODERATE RESISTANCE 1 UNITS SC ×3 (07:46→17:05)
--- NOTE | 2024-07-02 08:00 | PTCARENOTE ---
Received pt. @ change of shift. Drowsy, awakens to verbal stim; oriented to self only; required reorientation to time/place/situation; frequent reorientation provided. KENDALL; deconditioned. Restless/agitated/uncooperative @ x's- restraints
maintained- see flow sheet. SR w PVC's on monitor. SpO2 94% on RA. Tolerating pureed diet. Inc of xl loose/brown BM this AM; bowel reg held. Inc of bladder as well. Complete hygiene provided and repositioned per protocol. L flank ecchymosis
purple/red, RADIO AERIAL INSTALLER. L toe dressing c/d/i. L midline patent, dressing c/d/i. #20 R AC patent, dressing c/d/i. @ bedside, updated.
--- NOTE | 2024-07-02 08:12 | W.PN.INTV ---
Today's Communication / Plan
Recommendations
CTA A/P from 07/01 shows no active extravasation of his L-sided RP hematoma
Resume heparin gtt and ASA once cleared to do so per vascular surgery
Avoid narcotics as he remains lethargic at times but is much more awake and alert today overall compared to yesterday
Trend H&H --> transfused 1 U on AM of 07/01 for Hb 7.3 from 8.6 the evening prior
Keep MAP >65
Continue basal�bolus SQ insulin with goal BG 140�180
Diabetic LABORER BROODER [employer]ARM on board
Check stool Hemoccult
Patient is stable for downgrade out of ICU to IMU. No additional recommendations at this time. Equal Opportunity Representative/Pulmonary service will now sign off. Please reconsult if there are any additional questions/concerns, or if patient's respiratory status
deteriorates.
Assessment
-
63 old gentleman with known history of LV EF 10 to 15% and pulmonary hypertension was scheduled for arteriogram in the OR. Post induction with propofol, patient developed progressive hypotension followed by a PEA arrest and CPR was started.
Subsequently patient developed ventricular tachycardia and at some point ventricular fibrillation requiring ongoing CPR and defibrillation. Eventually ROSC was achieved and patient was transferred to ICU, intubated and on mechanical ventilation.
Equal Opportunity Representative consult was requested for further management. Prior to this event, patient has been in the hospital for a gangrenous right foot status post ray amputation and has been on meropenem for MSSA bacteremia with sepsis. Stays also
complicated by choledocholithiasis status post ERCP and stone retrieval.
#1. Cardiac arrest on 06/24/2024 with PEA followed by Ventricular Tachycardia followed by Polymorphic VT/V Fib
-Hypotension and PEA arrest post induction with Propofol during OR case for an arteriogram. s/p 3 rounds of ACLS and 4 defibrillations followed by ROSC
-Successfully extubated 06/27
-Amiodarone to PO 200 mg bid
-Target K >4 and Mg >2
-Telemetry
-ECHO reviewed, EF 10-15% with Estimated PASP 62 mm
-Cardiology on board. Defer ischemic evaluation to cardiology depending on his neurological recovery
-Initial CT head negative for acute changes
-Targeted temperature management with goal to keep normothermia and avoid fever --> completed
-Keep MAP>65
#2. Shock, cardiogenic and also vasoplegia post cardiac arrest
-Resolved, off vasopressors since 06/26
-Known h/o LV failure and Severe Pulmonary HTN
-Antibiotics changed from meropenem to Ancef on 07/01/2024 (was previously on meropenem since 06/23; prior to that was on Unasyn X 2 days and also given 2 doses of IV vancomycin on 06/21, and had 3 days of IV Flagyl from 06/19 - 06/22; continue ABx given
his diabetic foot wound with recent MSSA bacteremia
#3. Severe non-ischemic cardiomyopathy with EF 10-15% with Pulmonary HTN (62mm) with LV Thrombus
-Cardiology service on case --> defer GDMT to them
-Monitor strict I/O
-Heparin drip on hold given L-sided RP hematoma seen on CT A/P with IV contrast from 06/30/2024
-Continue PO Lasix
-Replete K>4, Mg>2
#4. Posterior RUL/RLL Aspiration pneumonia vs Pneumonitis
-Continue Abx as stated above (now on ancef)
-Serial CXR
#5. 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
-ID service on case. Bacteremia has since resolved
-Podiatry service and Vascular service on case, likely will need definitive treatment in coming days/weeks
-Heparin gtt on hold due to RP bleed; resume when feasible per vascular surgery with stable H/H and stable RP hematoma
#6. Concern for ischemic/Anoxic encephalopathy
-Patient more awake, alert and successfully extubated to BiPAP on 06/27--> still slow to respond but is awake as of 07/01, and even more awake and alert on 07/02
-Previously only had brief eye contact intermittently, otherwise no meaningful communication
-?Delirium vs residual anoxic injury. In view of persisting poor mental status, MRI completed 06/29, without any significant finding
-Minimize sedation, off Buspirone since 06/27; off seroquel since 06/29
-Neurology service on case, likely will need f/u EEG (last on 06/26/2024 showing diffuse cortical dysfunction with no seizures recorded)
- At baseline per , he is normally an active male and fully functional
#7. DM2 (uncontrolled: HbA1c: 10.8 on 06/19/2024)
-Insulin transitioned to basal-bolus (off insulin gtt since 06/27)
-TF now stopped as he pulled out his NGT; MOISTURE METER OPERATOR cleared him for diet
-Adjust SQ insulin to keep BG at goal of 140-180
#8. Anemia - likely due to RP-hematoma
-There has been intermittent oozing noted from the foot, status post dressing change
-Hematocrit dropped noted even without episodes of bleeding from the foot, elevated BUN/creatinine ratio,? Occult GI bleed
-Increased PPI to 40 twice daily (GI has seen the pt and signed off on 06/22/2024)
-Check stool guaiac - stool is paulino in color
-Continue to monitor H&H and transfuse if needed to keep Hb >7 g/dL; keep platelets >50k
-CT abd/pelvis shows evidence of large left retroperitoneal hematoma per CT on 06/30/2024 --> vascular consulted and CTA A/P performed on 07/01 showing no active extravasation/bleeding into the large left-sided retroperitoneal hematoma, which showed
additional intramuscular hematomas within the right psoas and iliacus muscles, grossly unchanged compared to prior CT
- Holding ASA and heparin gtt for now --> will resume once H/H stable and RP hematoma also considered not at risk for continued expansion per vascular surgery
GI Prophylaxis: change from IV PPI to PO, and lower to once daily as now concern for active GI bleed currently with no rectal bleeding or melena seen
Patient is stable for downgrade out of ICU to IMU. No additional recommendations at this time. Equal Opportunity Representative/Pulmonary service will now sign off. Thank you for allowing us to be involved in the care of this patient. Please reconsult if there are
any additional questions/concerns, or if patient's respiratory status deteriorates.
Total time spent today was 52 minutes for this encounter. Time includes reviewing laboratory test/imaging results, reviewing pertinent medical records, obtaining and reviewing medical history, performing an appropriate exam, ordering medications,
tests and procedures. Time also includes documentation of this encounter, coordinating patient care and communicating with other healthcare professionals. Total time does not include separately billed tests performed on this date of service.
Data:
ECHO 06/2024: Normal left ventricular chamber size. Severely reduced left ventricular
systolic function. Mild concentric left ventricular hypertrophy. Severe global
hypokinesis with possible inferior and apical akinesis. Left ventricular
ejection fraction is 10-15 % by visual estimate.
Mitral valve opens normally. Thickened mitral valve leaflets. Mitral annular
calcification. Mild mitral regurgitation.
Moderately dilated left atrium.
Tricuspid valve opens normally. Moderate tricuspid regurgitation. Estimated
pulmonary artery pressure of 62 mmHg assuming a right atrial pressure of 3
mmHg.
Moderately dilated right atrium.
Right ventricle appears mildly dilated and hypokinetic.
Small pericardial effusion without evidence of hemodynamic compromise.
Since echocardiogram 06/20/2024, there is no significant change.
CXR 06/24/2024
Endotracheal tube with tip in trachea above the salazar. No pneumothorax.
Patchy right lung opacity which could represent pneumonia/pneumonitis.
Nasogastric tube with tip in proximal stomach.
Brain MRI 06/29/2024: No clear MRI evidence for an acute intracranial abnormality within the significant limitations of extensive motion artifact during this exam.
CT angio abdomen/pelvis w/wo IV 07/01/2024:
1. Redemonstration of large LEFT retroperitoneal hematoma and additional intramuscular hematomas within the right psoas and iliacus muscles, grossly unchanged compared to the prior CT. No CT evidence for active contrast extravasation/bleeding.
2. Small left pleural effusion.
3. Patchy airspace disease within the right upper and lower lobes, possibly aspiration pneumonitis or pneumonia. Trace right pleural effusion.
4. Diffuse anasarca.
Subjective Dataa
Subjective Data
Date of Service:
Date of Service: July 02, 2024
Chief Complaint: Equal Opportunity Representative Follow Up
Subjective:
Patient was seen and evaluated this AM. Agitated this AM and pulling off equipment when restraints removed, although at times he is more calm and able to hold conversation but only for short period of time. He is eating about 50% of his meals.
Had 19 beats of NSVT yesterday. This morning, HR 86, with no further beats of nonsustained VT. He is saturating 92% on room air and BP 128/80.
Review of Systems
General: Other (Unable to obtain given patient's acute clinical status/confusion)
Objective Data
Data Reviewed
Vital Signs / I&O / Oxygen:
Vital Signs
Temp Pulse Resp BP Pulse Ox
97.7 F 68 17 146/83 94
07/02/24 07:46 07/02/24 08:00 07/02/24 06:00 07/02/24 08:00 07/02/24 08:36
Intake and Output
07/01/24 07/02/24 07/03/24
06:59 06:59 06:59
Intake Total 3906 / 3906 470 / 470 140 / 140
Output Total 2725 / 2725 250 / 250
Balance 1181 / 1181 220 / 220 140 / 140
SaO2 [P-SIMV] 100
SaO2 [A/C] 100
SaO2 94
Nasal Cannula flow liters per 2
minute
Physical Exam
General: Respiratory Distress (negative), Comfortable, Chills (negative) and Sweats (negative)
HEENT: Normocephalic
Cardiovascular: S1-S2 and Peripheral Edema (+1 lower extremity edema bilaterally)
Respiratory: Clear, Wheeze (negative), Crackles (negative), Rhonchi (negative), Non-Labored Respirations and Stridor (negative)
GI: Soft, Non Distended, Non Tender and Normal Bowel Sounds
Neurology: Awake, Tremors (negative), Lethargic (Sleepy) and Other (Nonsensical speech at times)
Skin: Warm, Dry, Cyanosis (negative) and Jaundice (negative)
Labs/Micro/Reports
Lab Data
07/02/24 05:03
07/02/24 05:03
--- NOTE | 2024-07-02 09:28 | PN.DE.MGMTRT ---
Insulin Management
- -
07/02/2024: Diabetes Management Follow up
63 year old male who presented to ER on 06/18/24 with report of AMS changes, of staring, garbled speech, confusion, and balance difficulty lasting an unclear amount of time. Of note, pt was recently admitted at [facility] for LV thrombus
and HFrEF (on Coumadin).
PMH: NICM, mild MR, HTN, Hypercholesterolemia Renal insufficiency, RLE Cellulitis, nicotine use and IDDM. Prior to admission was taking Levemir 20 units BID, Humalog 5 units AC and Farxiga 10mg daily prior to admission. A1C 10.8%.
Pt was also noted for a chronic nonhealing left foot wound as well as a more acute gangrenous left hallux and associated foot infection. He underwent a partial first ray resection on 06/23.
OR 06/24/24 for RLE percutaneous revascularization. Upon anesthesia induction patient PEA/Vfib arrested and underwent ACLS until ROSC was achieved and procedure was aborted.
Patient awake, resting in bed, offers no complaints, unable to interview.
Information obtained from chart review. Cr 1.1, eGFR >60 today.
Pt Failed Speech eval on 06/28, recommend to resume tube feeds, started Jevity @10cc/hr--> now at goal 75cc/hr, contributing to Hyperglycemia.
Glucose range 07/01 131 to 214, pt receiving Lantus 15 units BID with moderate corrective insulin Q 6 hours.
FBG this AM is 148. Will continue Lantus 15 units BID, with moderate corrective insulin Q6 hrs while on TF.
Will cont to follow.
Diabetes History
- -
Type of Diabetes: 2 requiring insulin
Pre-Admission Diabetes Regimen
07/02/24
05:03
Creatinine 1.1
Lab Results
Hemoglobin A1c 10.8 % (4.0-5.6) H 06/19/24 05:43
Insulin Pump Settings
IP Diabetes Regimen
03/07/01/24 07/01/24
11:13 17:42 21:29
Glucose
POC Glucose 171 H 131 H 137 H
07/02/24 07/02/24
05:03 07:42
Glucose 148 H
POC Glucose 156 H
Meal type: Breakfast
Amount consumed: 50%
Patient Education
[2024-07-02] MEDS: DILAUDID 0.5 MG IV ×2 (09:37→17:01)
--- NOTE | 2024-07-02 10:40 | W.PN.ID1 ---
Date of Service
Date of Service: July 02, 2024
Today's Communication
Continue cefazolin.
Assessment / Plan
MSSA Bacteremia
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
PEA/v fib arrest 06/24
Acute large left retroperitoneal hematoma with blood-loss anemia
CVA
Encephalopathy - Brain MRI no acute pathology
Dm2; uncontrolled
Leukocytosis - trending down
- 06/21 and 06/22 blood cultures remain no growth to date
- TTE without vegetations but plan empiric treatment for possible endocarditis
- Repeat TTE when feasible, would recommend AICD placement after completion of treatment for possible endocarditis
- Consider MRI left foot when medically stable.
- Toe swab cx MSSA. Toe amp path: viable margin
-s/p course of meropenem (8d)
- Continue cefazolin 2g IV q8 (day 10 abx)
- will likely require a course of home IV antibiotics
-Follow wbc
- PAD CT angio a/p today per vascular.
Choledocholithiasis s/p ERCP with 06/21
- has completed an adequate course,
����������������������������������������������������������
Chief Complaint
-: Other (wet gangrene left hallux, mssa bacteremia, possible endocarditis)
Subjective / Review of Systems
Somewhat confused
Vital Signs / Physical Exam
Vital Signs
Vital Signs
Temp Pulse Resp BP Pulse Ox
97.7 F 68 17 146/83 94
07/02/24 07:46 07/02/24 08:00 07/02/24 06:00 07/02/24 08:00 07/02/24 08:36
Physical Exam
Constitutional: Acutely Ill
Head: Other (NGT in place)
Cardiovascular: Regular Rate and S1/S2
Pulmonary: Clear
Gastrointestinal: Soft, Non Tender and Non Distended
Extremities: Negative Edema
Neurological: Awake and Alert
Objective Data
Lab Data
Lab Results
07/02/24 05:03
07/02/24 05:03
PT 18.8 Sec (11.4-14.6) H 06/27/24 03:27
INR 1.52 06/27/24 03:27
APTT 78.0 Sec (23.4-35.0) H 06/30/24 17:59
Estimated Creat Clear 82 ml/min 07/02/24 05:03
Lactic Acid 1.0 mmol/L (0.7-2.0) 06/26/24 08:48
Total Bilirubin 1.8 mg/dl (0.2-1.3) H 06/27/24 03:27
AST 36 U/L (17-59) 06/27/24 03:27
ALT 30 U/L (0-50) 06/27/24 03:27
Alkaline Phosphatase 187 U/L (38-126) H 06/27/24 03:27
Most recent labs reviewed.
Micro Results:
06/22/24 13:23 Blood Culture - Final
Blood/Venous No Growth - Final Report
06/21/24 09:33 Blood Culture - Final
Blood/Venous No Growth - Final Report
06/22/24 14:36 Wound Culture - Final
Abscess S aureus-Methicillin Sensitive
Gram Stain - Final
06/20/24 00:42 Blood Culture - Final
Blood/Venous S aureus-Methicillin Sensitive
Gram Stain - Final
06/20/24 01:59 Blood Culture - Final
Blood/Venous S aureus-Methicillin Sensitive
Gram Stain - Final
06/18/24 16:51 Urine Culture - Final
Urine NO GROWTH
06/18/24 16:11 Influenza Types A & B (HUBER) - Final
Nasal Swab Negative for Influenza A & B, NAAT
Negative results must be combined with clinical observations
and patient history.
Nucleic Acid Amplification test (NAAT)performed on the
[employer] platform.
Imaging:
06/24/2024 ECHO (TTE): Normal LV chamber size. Severely reduced LV systolic function with EF approximately 10 to 15%. Severe global hypokinesis. Mitral valve opens normally, but is noted to have thickened leaflets and mitral annular calcification.
Mild mitral regurgitation. Please see full dictation for additional detail.
06/30/24 Brain MRI: No clear MRI evidence for an acute intracranial abnormality within the significant limitations of extensive motion artifact during this exam.
--- NOTE | 2024-07-02 11:28 | W.PN.CARDCBS ---
Addendum entered and electronically signed by Bola Hernandez MD 07/02/24 11:43:
I saw and examined the patient.
The CUTTING DEPARTMENT SUPERVISOR or PA's note was reviewed and I agree with the note.
Comment: General: Well developed, well nourished in NAD.
Neck: Supple, no JVD, HJR, carotids +2 B/L, no bruits bilaterally.
Heart: Non displaced PMI, RRR, no murmurs, No S3, S4, no rubs.
Lungs: Scattered rhonchi
Extremities: No clubbing, cyanosis or edema bilaterally.
Neuro: Awake and alert
He has had dramatic improvement in his mental status. If he continues to improve from a mental status standpoint, will consider ischemic evaluation and ICD depending on status of MSSA bacteremia. Will need to decide whether warfarin would be
restarted given history of LV clot. Updated patient's at bedside. Total visit time 52 minutes
Original Note:
Today's Communication / Plan
-
More awake. Hgb stable and last transfusion was yesterday morning.
Eventual cath if continues to improve, but would need to restart aspirin
Presumably will also eventually need to be restarted on warfarin for LV clot seen on echo at [facility], but no longer seen on echo at
MSSA bacteremia this admission so not sure when he would be ready for ICD
Impression / Plan
-
PCP: Dr. Sherwood
Cardiology: Dr. Ny, last seen 06/2022
Impression:
Intraoperative PEA/ventricular fibrillation arrest 06/24/2024
Admitted with confusion and acute HFrEF 06/18/24
Tiny nonhemorrhagic acute/subacute infarct in the right periventricular white matter/centrum semiovale region by MRI 06/19/2024
Recent admission to [facility] for acute HF and foot wound 06/06/24 until 06/12/24
Hypotension
Acute HFrEF
CM EF 15% by echo at [facility] 06/07/24
h/o improved NICM EF 25% by echo 03/2018 and then improved to 40% by echo 06/2022
Nonobstructive CAD by cath 2017
Medication noncompliance
Newly diagnosed LV thrombus
1.5 x 1.2 cm LV apical clot on echo at [facility] 06/07/24
Chronic warfarin managed by [facility]
started for LV clot 06/07/24
Supratherapeutic INR on admission
Hyponatremia
GHAZAL on CKD 3a
Elevated LFTs
Chews tobacco
Unwitnessed fall 06/20/2024
tele reviewed and no arrhythmia
Hyperglycemia
Anemia
Left retroperitoneal hematoma by CT 06/30/24
Echo 05/30/2024: [facility] study, EF 15 to 20%, severe global hypokinesis and septal dyskinesis, small and organized thrombus in the LV apex measuring 1.5 x 1.2 cm, grade 3 diastolic dysfunction, at least mildly dilated RV with reduced
systolic function, mild to moderate MR, mild pericardial effusion seen posteriorly without evidence of tamponade
Echo 06/20/24 with IV echo contrast: LV ejection fraction severely reduced, 15-20% with global hypokinesis. Dilated, hypokinetic right ventricle. Biatrial dilatation. Mild MR. Mild to moderate TR. Estimated pulmonary artery systolic pressure
50-55 mmHg. Small pericardial effusion without evidence of hemodynamic compromise. No LV apical thrombus
Plan:
-Patient noted to be increasingly alert, following commands and communicating late 07/01/24 and again 07/02/24, but intermittently agitated so remains in restraints.
-Hgb 8.2 on 07/02/2024 AM, patient has received 7 units PRBCs, last transfusion was 07/01/2024 AM
-Heparin gtt and aspirin remain on hold after CT abd/pelvis on 06/30/24 showed a large left sided retroperitoneal hematoma.
-If patient continues to recover neurologically and Hgb is stable then we will have to determine timing of ischemic evaluation and ICD placement
-Patient s/p intraoperative PEA/VF arrest 06/24/24. Patient had been given propofol and fentanyl and had undergone vascular access, but no other instrumentation at the time of his event. Patient had CPR with 4 shocks, magnesium IV, amiodarone 300
mg and then 150 mg and then ROSC. He then underwent TTM and was warmed on 06/26/2024.
-No recurrence of ventricular arrhythmia, but he has been maintained on amiodarone 200 mg BID, he has received a 2.8 gram PO load as of 07/02/2024. QTc 481 ms by ECG 07/01/2024 as reviewed by me. Recheck ECG in AM, ordered by me
-Also with known history of an ICM and EF down to 25% in 2018, then improved to 40% with medical therapy by last echo 06/2022 followed by noncompliance for unclear reasons and EF now down to 15% by echoes starting 05/30/24.
-Patient with new LV clot by echo at [facility] 05/30/2024. Echo repeated with [facility] at 06/20/24 and no evidence of LV apical thrombus.
-Patient then had MRI brain 06/20/24 that showed a tiny nonhemorrhagic acute/subacute infarct in the right periventricular white matter/centrum semiovale region. Neurology saw the patient and felt that this may have been an incidental finding as the
patient was felt to be cognitively intact without functional decline, but had an episode of confusion with garbled speech on admission.
-When patient had LV clot identified at [facility] he was started on warfarin, warfarin was held during this admission to allow for ERCP that was performed on 06/21/2024 and patient was bridged with heparin. Heparin gtt now on hold due to
evidence of a large left-sided retroperitoneal hematoma on CT scan 06/30/2024. [facility] manages INRs that are drawn at [facility] and the goal is 2-3.
-Considering eventual ICD prior to d/c. ID following and remains on antibiotics for MSSA bacteremia
-Outpatient dose of Coreg 12.5 mg BID has been resumed and patient tolerating doses thus far
-Outpatient dose of Entresto 97/103 mg BID has been on hold since admission due to hypotension
-Outpatient dose of spironolactone 25 mg daily has been on hold since admission due to hypotension
-Outpatient dose of Farxiga 10 mg daily has been on hold since code
Summary of admission thus far: Admitted with change in mental status and found to have small nonhemorrhagic right hemispheric CVA, recently hospitalized with LV thrombus and acute and chronic HFrEF with left lower extremity wound infection. Also
with choledocholithiasis, status post ERCP and sphincterotomy with stone extraction 06/21/24. Underwent debridement of left foot wound and partial first ray amputation with podiatry on 06/23/24. Then taken to the vascular OR on 06/24/24 for peripheral
angiogram and possible intervention and upon induction of anesthesia had pulseless electrical activity degenerating into VF requiring ACLS and ultimately return of spontaneous circulation. Patient had TTM and was eventually extubated, but has not
recovered neurologically. Patient has also been receiving treatment for acute HFrEF during hospital stay.
HPI: Patient came to [facility] from home yesterday with confusion and garbled speech and was admitted for acute HF and cardiology has been consulted. Patient is a poor historian and gave me permission to call his daughter. Also reviewed 67 pages of
records from recent [facility] admission. Patient had NICM diagnosed in 2018 and with GDMT his EF improved to 40% by last echo at in 06/2022. Patient then stopped coming to cardiology appts at , but reportedly did not start following elsewhere.
Patient then retired and stopped taking his medications on a regular schedule despite reminders from family. Patient started with LE wounds 02/2024 and following with wound care center and seemed to be improving. Patient then started with a cough
and saw his PCP 05/02/24 and lungs were clear and he was started on promethazine and albuterol. Patient was then admitted to [facility] with SOB 06/06/24 and during that admission was found to have EF down to 15% and he had a new LV clot and was started
on warfarin. Patient was also d/c'd to home on Coreg, Entresto and spironolactone which are meds he had been on when he was last seen in the cardiology office in 2022. Patient was diuresed with Lasix IV and d/c'd to home on Lasix 40 mg PO BID.
Patient's daughter reports that patient was not taking meds at home and when VN came to see him he had garbled speech and was sent to the ER.
Progress Note - Saw Tailer
Subjective
Date of Service: July 02, 2024
No pain
Objective
Labs:
07/02/24 05:03
07/02/24 05:03
Labs
Hgb 8.2 g/dL (13.0-18.0) L 07/02/24 05:03
Hct 23.9 % (39.0-52.0) L 07/02/24 05:03
Plt Count 208 10^3/uL (130-400) 07/02/24 05:03
PT 18.8 Sec (11.4-14.6) H 06/27/24 03:27
INR 1.52 06/27/24 03:27
APTT 78.0 Sec (23.4-35.0) H 06/30/24 17:59
Sodium 143 mmol/L (135-145) 07/02/24 05:03
Potassium 4.2 mmol/L (3.5-5.1) 07/02/24 05:03
BUN 64 mg/dl (9-20) H 07/02/24 05:03
Creatinine 1.1 mg/dL (0.7-1.3) 07/02/24 05:03
Glucose 148 mg/dl (70-99) H 07/02/24 05:03
Vital Signs and I&O:
Vital Signs
Temp Pulse Resp BP Pulse Ox
97.9 F 68 17 146/83 94
07/02/24 11:05 07/02/24 08:00 07/02/24 06:00 07/02/24 08:00 07/02/24 08:36
Vital Signs
Temp Pulse Resp BP Pulse Ox
97.9 F 68 17 146/83 94
07/02/24 11:05 07/02/24 08:00 07/02/24 06:00 07/02/24 08:00 07/02/24 08:36
Intake & Output
06/30/24 07/01/24 07/02/24 07/03/24
06:59 06:59 06:59 06:59
Intake Total 2879 / 2991 3906 / 3906 470 / 470 140 / 140
Output Total 1650 / 1650 2725 / 2725 250 / 250
Balance 1229 / 1341 1181 / 1181 220 / 220 140 / 140
Physical Exam
Physical Exam
GEN: Awake and alert
HEENT: MMM
LUNGS: RA. No audible wheeze
CV: SR with PVCs on tele.
ABD: ND
EXT: Trace B/L LE edema.
SKIN: No rash
[2024-07-02 11:41] LABS: Glucose - Point of Care 167 mg/dl (70-99)
--- NOTE | 2024-07-02 13:28 | CM ---
CM following re: discharge planning.
Discussed in Rounds, reviewed pt's chart, met with pt. CM met with pt's spouse, pt's Medicare insurance discussed and information regarding obtaining SS provided. Pt's spouse stated that pt will not return back to work and she will apply for SS.
Per Rounds meeting pt will be downgraded from ICU level of care.
PT and OT will evaluate the pt when clinically appropriate to determine a level of care at discharge. PM&R following.
D/C plan: original plan was [facility]. [facility] workplace rehabilitation officer following.
CM will follow with discharge plan updates as hospitalization progresses
--- NOTE | 2024-07-02 15:15 | PTCARENOTE ---
pt. lifted from bed to chair approx 1245. Tolerated chair position for 2.5H then lifted back into bed. Inc of b/b; complete hygiene provided and pt. repositioned. L toe wound care completed- see flow sheet. Tolerating meals w/out s/s of asp.
Restraints maintained d/t impulsive/confused/restless behavior- see flow sheet. remains @ bedside. Bed alarm active; safe environment maintained.
--- NOTE | 2024-07-02 15:55 | W.PN.HOSP.TC ---
Today's Communication/Plan
-
Assessment / Plan
Assessment / Plan
Physical Exam
GEN: Chronically ill-appearing, no acute distress
HEENT: EOMI, MMM
LUNGS: CTA B/L without wheeze or rales
CV: Normal sinus rhythm no murmurs gallops
ABD: soft, BS+, ND, left flank ecchymosis
EXT: left foot wound dressing clean dry intact
NEURO: Awake but confused, slow to respond, nodding/shaking head in answer to yes/no questions
63M HFrEF CKD3 DM neuropathy HLD Nicotine dependence complicated hospital course with MSSA bacteremia, Left hallux gangrene, CVA suspect 2/2 cardiac emboli LV thrombus. Had partial amputation Lt Hallux Gangrene OR Podiatry 06/23. Patient was
planned for revascularization LLE 06/24 however developed PEA/Vfib arrest after anesthesia induction requiring ACLS. ROSC eventually achieved, patient was subsequently transferred to ICU intubated and requiring pressor support.
PEA/Vfib arrest following Anesthesia Induction 06/24/2024
Acute Anoxic Encephalopathy vs Delirium
-Underwent 3 rounds of ACLS and 4 defibrillations as per Cardio before ROSC was achieved
-CT head appreciated no acute abn's
-ECHO post-code appreciated EF 10-15% no significant change from prior ECHO 06/20/24
-transferred to ICU intubated and on pressor support
-amiodarone gtt transitioned to PO via ngt
-weaned off pressor support
-TTM completed, mental status improving
-Extubated 06/27, downgraded to IMU
-Reevaluated by PORTFOLIO MANAGER 07/01 who recommended okay for p.o. diet, started pur�ed diet, NG tube discontinued
-Brain MRI 06/29/24 noted no acute abn though limited study d/t motion defects
#reported hx LV thrombus
-Dx 2 weeks prior to arrival at [facility], suspect due to severely depressed LVEF
-Started on Coumadin anticoagulation 06/07/2024 for LV apical thrombus
-Coumadin on hold, had been on hep gtt for potential procedures however heparin now held due to large left-sided retroperitoneal hematoma
Left retroperitoneal hematoma:
-Large but stable on repeat imaging 07/01
-Continue holding anticoagulation
Progressive/persistent Anemia
-Secondary to blood loss from procedures and retroperitoneal hematoma
-Status post transfusion 10 units so far this admission
-monitor H&H and transfuse as necessary Hgb<7.5
-Protonix IV 40 mg daily
# MSSA bacteremia
-Blood cultures from 06/20 positive for MSSA [correction to prior documentation], repeat cultures from 06/22 also positive
-Suspect secondary to left hallux wet gangrene, which itself is suspected due to embolic effect, status post amputation
-Antibiotics now narrowed to cefazolin 2 g IV every 8 hours, will likely need home IV antibiotics after discharge
-Eventual repeat of transthoracic echo
-Appreciate guidance from ID and podiatry
-strict NWB and elevation LLE as per Podiatry
#Left hallux gangrene:
-Suspect secondary to embolism as also caused stroke
-wound cx pos MSSA
-Status post partial amputation in the OR with podiatry 06/23
-Planned for revascularization 06/24 aborted d/t PE/Vfib arrest as above
-Continue local wound care, antibiotics with cefazolin
#CVA
- Suspect secondary to cardiac emboli
� Acute/subacute infarct in the right periventricular white matter/centrum semiovale region
� Currently holding anticoagulation due to large left retroperitoneal hematoma
� Neurology consult appreciated
� Carotids unremarkable
- hold PT OT d/t critical illness requiring ICU care as above
#Acute on chronic HFrEF
EF 15-20%
-Cardio eval appreciated Lasix and Coreg restarted following wean off pressors.
-Farxiga resumed, cont
#Choledocholithiasis
-ERCP 06/21 with stone identified and removed and biliary sphincterotomy performed
-GI eval appreciated
#Transaminitis
� Secondary to choledocholithiasis, ERCP performed 06/21
� Resolving after ERCP
#GHAZAL
-Initial creat 1.6 since improved
-CKD III ruled out with resolution GHAZAL
-monitor
#DM 2/diabetic neuropathy
-Uncontrolled, hemoglobin A1c 10.8% this admission
-DM GUM REMOVER eval appreciated
-Currently Lantus 15 units twice daily and sliding scale insulin
-Farxiga resumed
-Gabapentin 600 mg daily on hold d/t Encephalopathy as above
#Constipation
cont Miralax and Sennosides, consider Lactulose if no improvement
#Mild Hyponatremia
monitor
#HLD
-Continue statin
#Nicotine dependence
DVT prophylaxis SCDs
Full code
Guarded Prognosis
Anticipated Discharge: > 48 hours
Subjective/Interval History
-
Date of Service: July 02, 2024
Patient was seen and examined at bedside this morning. NG tube removed and tolerating p.o. diet.
Objective Data
-
Labs:
Laboratory Results
07/02/24
05:03
WBC 13.5 H
Hgb 8.2 L
Hct 23.9 L
Plt Count 208
Sodium 143
Potassium 4.2
Chloride 108 H
Carbon Dioxide 31 H
BUN 64 H
Creatinine 1.1
Glucose 148 H
Calcium 7.9 L
Vital Signs:
Vital Signs
Temp Pulse Resp BP Pulse Ox
97.8 F 65 14 129/88 95
07/02/24 15:09 07/02/24 14:00 07/02/24 14:00 07/02/24 14:00 07/02/24 14:00
I&O
07/01/24 07/02/24 07/03/24
06:59 06:59 06:59
Intake Total 3906 / 3906 470 / 470 140 / 140
Output Total 2725 / 2725 250 / 250
Balance 1181 / 1181 220 / 220 140 / 140
Review of Systems
-
Unable to obtain full review of systems at this time due to: Acuity
History Source: Patient and Family
All other systems: Reviewed and negative
Physical Exam
-
General: No Apparent Distress
--- NOTE | 2024-07-02 16:08 | PTOTSP ---
ACCOUNT RECEIVABLE CLERK Note
Impression: Suspect at least mild oral/pharyngeal dysphagia that may fluctuate and is likely impacted by cognitive changes. Risk for dysphagia elevated given AMS, dependence for feeding, and cognitive changes. Trial diet advancement below.
Video swallow study would still be difficult at this time given patient restless/mobile in bed while with b/l soft mitts and w/ poor safety awareness secondary to significant cognitive deficits.
Recommend:
1. IDDSI Level 5 Minced/Moist, IDDSI Level 0 Thin Liquids
2. Medications: crushed in puree if medically cleared to do so
3. Oral care 3-5x daily
4. Strategies: Full supervision/assistance, SMALL single sips (pinch straw), slow rate, check for oral clearance
5. Dysphagia tx at the acute care level for carry over of strategies, to trial advanced consistencies, and to determine if/when video swallow appropriate
6. Continue cognitive linguistic tx at the acute care level as able/appropriate
[2024-07-02 16:40] LABS: Glucose - Point of Care 178 mg/dl (70-99)
--- NOTE | 2024-07-02 20:30 | PTCARENOTE ---
Assumed care of patient at 1900. Patient in bed, BL mitts and 4 side rails up, per order. Pt yelling out at times but redirectable occasionally. Pt assessed, vitals obtained, see flowsheets. Patient given meds as scheduled, see MAR. Patient with
left midline. Pt with bed on IMU. Report given to RN. Pt transferred at 2014.
--- NOTE | 2024-07-02 21:12 | PTCARENOTE ---
received verbal report from Helen RN. Patient transferred from ICU to IMU room 334 without issue. Patient transferred with all belongings. Positive pulses with doppler. Patient orientated to self. Patient has bilateral mitts. Moaning and calling
out at times. Able to follow some commands. Assessment and vital signs as documented. Care on going.
[2024-07-02 21:42] LABS: Glucose - Point of Care 182 mg/dl (70-99)
[2024-07-02] MEDS: TYLENOL 1000 MG PO (22:40)
[2024-07-03] VITALS (15 sets, daily range): BP systolic 123–170; BP diastolic 75–104; BMI 27.6
[2024-07-03 04:29] LABS: % Basophils 0.1 % (0-2); % Eosinophils 1.1 % (0-6); % Immature Granulocytes 0.7 % (0-0.5); % Lymphocytes 6.6 % (20.5-51.1); % Monocytes 5.9 % (1.7-9.3); % Neutrophils 85.6 % (42.2-75.2); Absolute Eosinophils 0.1 10^3/uL (0-0.7); Absolute Immature Granulocytes 0.1 10^3/uL (0-0.05); Absolute Lymphocytes 0.7 10^3/uL (1.2-3.4); Absolute Monocytes 0.6 10^3/uL (0.1-0.6); Absolute Neutrophils 8.4 10^3/uL (1.4-6.5); Hematocrit 23.7 % (39.0-52.0); Hemoglobin 7.7 g/dL (13.0-18.0); Mean Corp Hgb Conc. 32.5 g/dL (33.0-37.0); Mean Corpuscular Hgb 29.3 pg (27.0-31.0); Mean Corpuscular Volume 90.1 fL (80.0-94.0); Mean Platelet Volume 10.3 fL (7.4-10.4); Nucleated Red Blood Cells % 0 % (-); Platelet Count 218 10^3/uL (130-400); Red Blood Cell Count 2.63 10^6/uL (4.70-6.10); Red Cell Dist. Width 16.6 % (11.5-14.5); White Blood Cell Count 9.8 10^3/uL (4.8-10.8)
[2024-07-03 04:49] LABS: Blood Urea Nitrogen 62 mg/dl (9-20); Calcium 7.9 mg/dl (8.4-10.2); Carbon Dioxide 33 mmol/L (22-30); Chloride 109 mmol/L (98-107); Estimated Creatinine Clearance 82 ml/min; Glucose 99 mg/dl (70-99); Potassium 4.1 mmol/L (3.5-5.1); Sodium 144 mmol/L (135-145); eGFR > 60.00
[2024-07-03] MEDS: ANCEF 10 IV ×3 (05:26→21:36)
[2024-07-03] MEDS: COREG 12.5 MG PO ×2 (08:09→19:50)
[2024-07-03] MEDS: PACERONE 200 MG PO ×2 (08:09→19:50)
[2024-07-03] MEDS: FARXIGA 10 MG PO (08:09)
[2024-07-03] MEDS: LASIX 40 MG PO ×2 (08:09→16:30)
[2024-07-03] MEDS: PROTONIX 40 MG PO (08:09)
[2024-07-03] MEDS: SENOKOT PO (08:10)
[2024-07-03] MEDS: MIRALAX PO (08:10)
[2024-07-03] MEDS: KCL ELIXIR 20 MEQ PO (08:11)
[2024-07-03] MEDS: NOVOLOG FLEXPEN-MODERATE RESISTANCE SC ×3 (08:43→17:07)
--- NOTE | 2024-07-03 08:46 | PN.DE.MGMTRT ---
Insulin Management
- -
07/03/2024: Diabetes Management Follow up
63 year old male who presented to ER on 06/18/24 with report of AMS changes, of staring, garbled speech, confusion, and balance difficulty lasting an unclear amount of time. Of note, pt was recently admitted at [facility] for LV thrombus
and HFrEF (on Coumadin).
PMH: NICM, mild MR, HTN, Hypercholesterolemia Renal insufficiency, RLE Cellulitis, nicotine use and IDDM. Prior to admission was taking Levemir 20 units BID, Humalog 5 units AC and Farxiga 10mg daily prior to admission. A1C 10.8%.
Pt was also noted for a chronic nonhealing left foot wound as well as a more acute gangrenous left hallux and associated foot infection. He underwent a partial first ray resection on 06/23.
OR 06/24/24 for RLE percutaneous revascularization. Upon anesthesia induction patient PEA/Vfib arrested and underwent ACLS until ROSC was achieved and procedure was aborted.
Patient awake, resting in bed, offers no complaints, restless, unable to interview.
Information obtained from chart review. Cr 1.1, eGFR >60 today.
Speech eval on 07/02, recommend minced moist diet, patient consuming ~ 50% of meal. Will add 2000 calories.
Glucose range 07/02 148 to 182, pt receiving Lantus 15 units BID with moderate corrective insulin AC and Farxiga 10 mg daily.
FBG this AM is 99. Will continue Lantus 15 units BID, with moderate corrective insulin and Farxiga 10 mg daily.
Discussed with nurse.
Will cont to follow.
Diabetes History
- -
Type of Diabetes: 2 requiring insulin
Pre-Admission Diabetes Regimen
07/03/24
04:00
Creatinine 1.1
Lab Results
Hemoglobin A1c 10.8 % (4.0-5.6) H 06/19/24 05:43
Insulin Pump Settings
IP Diabetes Regimen
0307/02/24 07/02/24
11:30 16:38 21:30
Glucose
POC Glucose 167 H 178 H 182 H
07/03/24
04:00
Glucose 99
POC Glucose
Meal type: Dinner
Meal type: Lunch
Meal type: Breakfast
Amount consumed: 50%
Amount consumed: 50%
Amount consumed: 50%
Patient Education
[2024-07-03] MEDS: LANTUS 0.15 UNITS SC ×2 (08:47→21:37)
[2024-07-03 08:53] LABS: Glucose - Point of Care 86 mg/dl (70-99)
--- NOTE | 2024-07-03 09:28 | W.PN.ID1 ---
Date of Service
Date of Service: July 03, 2024
Today's Communication
- Continue cefazolin 2g IV q8 (day of abx, 06/22-08/02)
- recommend 6 weeks course of IV antibiotics with AICD placement afterwards, alternatively would consider suppression
Assessment / Plan
MSSA Bacteremia
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
PEA/v fib arrest 06/24
Acute large left retroperitoneal hematoma with blood-loss anemia
CVA
Encephalopathy - Brain MRI no acute pathology
Dm2; uncontrolled
Leukocytosis - trending down
Choledocholithiasis s/p ERCP with 06/21 - resolved
- 06/21 and 06/22 blood cultures finalized negative
- Toe swab cx MSSA. Toe amp path: viable margin with focal osteomyelitis
- initial TTE 06/20 without vegetations; recent history of LV thrombus, not seen on this study
- Repeat TTE done 06/24 notable for thickened mitral valves, would recommend AICD placement after completion of treatment for possible endocarditis
- Continue cefazolin 2g IV q8 (day of abx, 06/22-08/02)
- recommend 6 weeks course of IV antibiotics with AICD placement afterwards, alternatively would consider suppression
- PICC line placement when approaching DC, currently with a midline
07/01 CTA a/p: no active extravasation of his L-sided RP hematoma
����������������������������������������������������������
Chief Complaint
-: Other (wet gangrene left hallux, mssa bacteremia, possible endocarditis)
Subjective / Review of Systems
afebrile
bp stable
tolerating current therapies
remains delirious
reviewed with
Vital Signs / Physical Exam
Vital Signs
Vital Signs
Temp Pulse Resp BP Pulse Ox
97.2 F 66 15 132/86 97
07/02/24 22:47 07/03/24 08:09 07/03/24 02:00 07/03/24 02:00 07/03/24 02:00
Physical Exam
Constitutional: No Acute Distress and Chronically Ill
Cardiovascular: Regular Rate and S1/S2; Negative Murmur or Rub
Pulmonary: Clear and Symmetric; Negative Wheezes or Rales
Gastrointestinal: Soft, Non Tender, Non Distended and Normal Bowel Sounds
Skin: Warm and Dry; Negative Rash or Jaundice
Wound: Other (dressing clean, dry, intact)
Objective Data
Lab Data
Lab Results
07/03/24 04:00
07/03/24 04:00
PT 18.8 Sec (11.4-14.6) H 06/27/24 03:27
INR 1.52 06/27/24 03:27
APTT 78.0 Sec (23.4-35.0) H 06/30/24 17:59
Estimated Creat Clear 82 ml/min 07/03/24 04:00
Lactic Acid 1.0 mmol/L (0.7-2.0) 06/26/24 08:48
Total Bilirubin 1.8 mg/dl (0.2-1.3) H 06/27/24 03:27
AST 36 U/L (17-59) 06/27/24 03:27
ALT 30 U/L (0-50) 06/27/24 03:27
Alkaline Phosphatase 187 U/L (38-126) H 06/27/24 03:27
Most recent labs reviewed.
Micro Results:
06/22/24 13:23 Blood Culture - Final
Blood/Venous No Growth - Final Report
06/21/24 09:33 Blood Culture - Final
Blood/Venous No Growth - Final Report
06/22/24 14:36 Wound Culture - Final
Abscess S aureus-Methicillin Sensitive
Gram Stain - Final
06/20/24 00:42 Blood Culture - Final
Blood/Venous S aureus-Methicillin Sensitive
Gram Stain - Final
06/20/24 01:59 Blood Culture - Final
Blood/Venous S aureus-Methicillin Sensitive
Gram Stain - Final
06/18/24 16:51 Urine Culture - Final
Urine NO GROWTH
06/18/24 16:11 Influenza Types A & B (HUBER) - Final
Nasal Swab Negative for Influenza A & B, NAAT
Negative results must be combined with clinical observations
and patient history.
Nucleic Acid Amplification test (NAAT)performed on the
[employer] platform.
Imaging:
06/24/2024 ECHO (TTE): Normal LV chamber size. Severely reduced LV systolic function with EF approximately 10 to 15%. Severe global hypokinesis. Mitral valve opens normally, but is noted to have thickened leaflets and mitral annular calcification.
Mild mitral regurgitation. Please see full dictation for additional detail.
06/30/24 Brain MRI: No clear MRI evidence for an acute intracranial abnormality within the significant limitations of extensive motion artifact during this exam.
--- NOTE | 2024-07-03 10:43 | W.PN.CARDCBS ---
Addendum entered and electronically signed by Julio Ny MD 07/03/24 11:09:
I saw and examined the patient.
The Framing Consultant's note was reviewed and I agree with the note.
Comment:
GEN: No distress, awake, Ox1
HEENT: supple, anicteric, mmm
LUNGS: CTA, no wheezes/rales
CV: Reg, S1/S2, 1/6 syst LSB, no gallop
ABD: soft, BS+, NT/ND
EXT: No edema
NEURO: Gross non-focal
SKIN: No rash
PLan:
Weight is increasing. Increase Lasix is 40 mg p.o. twice daily. Creatinine is normal.
Continue Coreg and will restart Entresto today.
His mental status is improved but he still is in soft limb restraints. He is only oriented x 1. Will need to make a decision regarding cardiac cath and ICD over the next 2 to 3 days.
Hemoglobin at 7.7. With retroperitoneal bleed hopefully start aspirin alone 81 mg daily over next 24 to 48 hours.
Will continue to follow mental status.
Original Note:
Today's Communication / Plan
-
Restart lowest dose Entresto now, ordered by me
Weight stable on Lasix 40 mg daily, but had been taking BID prior to admission
Patient would need to be back on at least aspirin prior to cath and if receives PCI then would need to tolerate Plavix and warfarin
Eventually restart warfarin due to LV clot seen on echo at [facility] last month, LV clot not seen on echo at this admission, but evidence of acute/subacute stroke on MRI
Impression / Plan
-
PCP: Dr. Sherwood
Cardiology: Dr. Ny, last seen 06/2022
Impression:
Intraoperative PEA/ventricular fibrillation arrest 06/24/2024
Admitted with confusion and acute HFrEF 06/18/24
Tiny nonhemorrhagic acute/subacute infarct in the right periventricular white matter/centrum semiovale region by MRI 06/19/2024
Recent admission to [facility] for acute HF and foot wound 06/06/24 until 06/12/24
Hypotension
Acute HFrEF
CM EF 15% by echo at [facility] 06/07/24
h/o improved NICM EF 25% by echo 03/2018 and then improved to 40% by echo 06/2022
Nonobstructive CAD by cath 2017
Medication noncompliance
Newly diagnosed LV thrombus
1.5 x 1.2 cm LV apical clot on echo at [facility] 06/07/24
Chronic warfarin managed by [facility]
started for LV clot 06/07/24
Supratherapeutic INR on admission
Hyponatremia
GHAZAL on CKD 3a
Elevated LFTs
Chews tobacco
Unwitnessed fall 06/20/2024
tele reviewed and no arrhythmia
Hyperglycemia
Anemia
Left retroperitoneal hematoma by CT 06/30/24
Echo 05/30/2024: [facility] study, EF 15 to 20%, severe global hypokinesis and septal dyskinesis, small and organized thrombus in the LV apex measuring 1.5 x 1.2 cm, grade 3 diastolic dysfunction, at least mildly dilated RV with reduced
systolic function, mild to moderate MR, mild pericardial effusion seen posteriorly without evidence of tamponade
Echo 06/20/24 with IV echo contrast: LV ejection fraction severely reduced, 15-20% with global hypokinesis. Dilated, hypokinetic right ventricle. Biatrial dilatation. Mild MR. Mild to moderate TR. Estimated pulmonary artery systolic pressure
50-55 mmHg. Small pericardial effusion without evidence of hemodynamic compromise. No LV apical thrombus
Plan:
-More awake and alert, but remains in mitts due to impulsiveness 07/03/24
-Hgb dipping down to 7.7 on 07/03/2024. Patient has received 7 units PRBCs, last transfusion was 07/01/2024 AM
-Heparin gtt and aspirin remain on hold after CT abd/pelvis on 06/30/24 showed a large left sided retroperitoneal hematoma. At some point if patient has recovered enough from a neurological standpoint would like to proceed with cardiac cath, the
patient would need to be able to tolerate aspirin and possibly even Plavix and warfarin given history of LV clot.
-Additionally if patient recovers neurologically and is cleared from an ID standpoint following MSSA bacteremia he would be a candidate for ICD placement following intraoperative PEA/VF arrest 06/24/24. Patient had been given propofol and fentanyl
and had undergone vascular access, but no other instrumentation at the time of his event. Patient had CPR with 4 shocks, magnesium IV, amiodarone 300 mg and then 150 mg and then ROSC. He then underwent TTM and was warmed on 06/26/2024.
-No recurrence of ventricular arrhythmia, but he has been maintained on amiodarone 200 mg BID, he has received a 3.2 gram PO load as of 07/03/2024. QTc 450 ms by ECG 07/03/2024 as reviewed by me.
-Also with known history of an ICM and EF down to 25% in 2018, then improved to 40% with medical therapy by last echo 06/2022 followed by noncompliance for unclear reasons and EF now down to 15% by echoes starting 05/30/24.
-Patient with new LV clot by echo at [facility] 05/30/2024. Echo repeated with [facility] at 06/20/24 and no evidence of LV apical thrombus.
-Patient then had MRI brain 06/20/24 that showed a tiny nonhemorrhagic acute/subacute infarct in the right periventricular white matter/centrum semiovale region. Neurology saw the patient and felt that this may have been an incidental finding as the
patient was felt to be cognitively intact without functional decline, but had an episode of confusion with garbled speech on admission.
-When patient had LV clot identified at [facility] he was started on warfarin, warfarin was held during this admission to allow for ERCP that was performed on 06/21/2024 and patient was bridged with heparin. Heparin gtt now on hold due to
evidence of a large left-sided retroperitoneal hematoma on CT scan 06/30/2024. [facility] manages INRs that are drawn at [facility] and the goal is 2-3.
Weight peaked at 234 lbs this admission and currently weighs 226 lbs on 07/03/2024. Lasix 40 mg PO daily currently ordered, but patient was taking 40 mg BID prior to admission
-Outpatient dose of Coreg 12.5 mg BID has been resumed and patient tolerating doses thus far
-Outpatient dose of Entresto 97/103 mg BID has been on hold since admission due to hypotension. BP improved and will try restarting Entresto at lowest dose
-Outpatient dose of spironolactone 25 mg daily has been on hold since admission due to hypotension
-Outpatient dose of Farxiga 10 mg daily has been on hold since code
Summary of admission thus far: Admitted with change in mental status and found to have small nonhemorrhagic right hemispheric CVA, recently hospitalized with LV thrombus and acute and chronic HFrEF with left lower extremity wound infection. Also
with choledocholithiasis, status post ERCP and sphincterotomy with stone extraction 06/21/24. Underwent debridement of left foot wound and partial first ray amputation with podiatry on 06/23/24. Then taken to the vascular OR on 06/24/24 for peripheral
angiogram and possible intervention and upon induction of anesthesia had pulseless electrical activity degenerating into VF requiring ACLS and ultimately return of spontaneous circulation. Patient had TTM and was eventually extubated, but has not
recovered neurologically. Patient has also been receiving treatment for acute HFrEF during hospital stay.
HPI: Patient came to [facility] from home yesterday with confusion and garbled speech and was admitted for acute HF and cardiology has been consulted. Patient is a poor historian and gave me permission to call his daughter. Also reviewed 67 pages of
records from recent [facility] admission. Patient had NICM diagnosed in 2018 and with GDMT his EF improved to 40% by last echo at in 06/2022. Patient then stopped coming to cardiology appts at , but reportedly did not start following elsewhere.
Patient then retired and stopped taking his medications on a regular schedule despite reminders from family. Patient started with LE wounds 02/2024 and following with wound care center and seemed to be improving. Patient then started with a cough
and saw his PCP 05/02/24 and lungs were clear and he was started on promethazine and albuterol. Patient was then admitted to [facility] with SOB 06/06/24 and during that admission was found to have EF down to 15% and he had a new LV clot and was started
on warfarin. Patient was also d/c'd to home on Coreg, Entresto and spironolactone which are meds he had been on when he was last seen in the cardiology office in 2022. Patient was diuresed with Lasix IV and d/c'd to home on Lasix 40 mg PO BID.
Patient's daughter reports that patient was not taking meds at home and when VN came to see him he had garbled speech and was sent to the ER.
Progress Note - [facility]
Subjective
Date of Service: July 03, 2024
No pain
Objective
Labs:
07/03/24 04:00
07/03/24 04:00
Labs
Hgb 7.7 g/dL (13.0-18.0) L 07/03/24 04:00
Hct 23.7 % (39.0-52.0) L 07/03/24 04:00
Plt Count 218 10^3/uL (130-400) 07/03/24 04:00
PT 18.8 Sec (11.4-14.6) H 06/27/24 03:27
INR 1.52 06/27/24 03:27
APTT 78.0 Sec (23.4-35.0) H 06/30/24 17:59
Sodium 144 mmol/L (135-145) 07/03/24 04:00
Potassium 4.1 mmol/L (3.5-5.1) 07/03/24 04:00
BUN 62 mg/dl (9-20) H 07/03/24 04:00
Creatinine 1.1 mg/dL (0.7-1.3) 07/03/24 04:00
Glucose 99 mg/dl (70-99) 07/03/24 04:00
Vital Signs and I&O:
Vital Signs
Temp Pulse Resp BP Pulse Ox
97.6 F 66 15 132/86 97
07/03/24 07:25 07/03/24 08:09 07/03/24 02:00 07/03/24 02:00 07/03/24 02:00
Vital Signs
Temp Pulse Resp BP Pulse Ox
97.6 F 66 15 132/86 97
07/03/24 07:25 07/03/24 08:09 07/03/24 02:00 07/03/24 02:00 07/03/24 02:00
Intake & Output
07/01/24 07/02/24 07/03/24 07/04/24
06:59 06:59 06:59 06:59
Intake Total 3906 / 3906 470 / 470 620 / 620 120 / 120
Output Total 2725 / 2725 250 / 250
Balance 1181 / 1181 220 / 220 620 / 620 120 / 120
Physical Exam
Physical Exam
GEN: Awake and alert
HEENT: MMM
LUNGS: RA. No audible wheeze
CV: SR with PVCs on tele.
ABD: ND
EXT: No edema.
SKIN: No rash
[2024-07-03 13:24] LABS: Glucose - Point of Care 93 mg/dl (70-99)
--- NOTE | 2024-07-03 16:05 | W.PN.HOSP.TC ---
Today's Communication/Plan
-
Assessment / Plan
Assessment / Plan
Physical Exam
GEN: Chronically ill-appearing, no acute distress
HEENT: EOMI, MMM
LUNGS: CTA B/L without wheeze or rales
CV: Normal sinus rhythm no murmurs gallops
ABD: soft, BS+, ND, left flank ecchymosis
EXT: left foot wound dressing clean dry intact
NEURO: Awake but confused, slow to respond, answers appropriately to simple questions
63M HFrEF CKD3 DM neuropathy HLD Nicotine dependence complicated hospital course with MSSA bacteremia, Left hallux gangrene, CVA suspect 2/2 cardiac emboli LV thrombus. Had partial amputation Lt Hallux Gangrene OR Podiatry 06/23. Patient was
planned for revascularization LLE 06/24 however developed PEA/Vfib arrest after anesthesia induction requiring ACLS. ROSC eventually achieved, patient was subsequently transferred to ICU intubated and requiring pressor support.
PEA/Vfib arrest following Anesthesia Induction 06/24/2024
Acute Anoxic Encephalopathy vs Delirium
-Underwent 3 rounds of ACLS and 4 defibrillations as per Cardio before ROSC was achieved
-CT head appreciated no acute abn's
-ECHO post-code appreciated EF 10-15% no significant change from prior ECHO 06/20/24
-transferred to ICU intubated and on pressor support
-amiodarone gtt transitioned to PO via ngt
-weaned off pressor support
-TTM completed, mental status improving but not at baseline
-Extubated 06/27, downgraded to IMU
-Reevaluated by MANAGER BUSINESS INTELLIGENCE 07/01 who recommended okay for p.o. diet, started pur�ed diet, NG tube discontinued
-Brain MRI 06/29/24 noted no acute abn though limited study d/t motion defects
-He will need eventual cardiac cath and ICD, plans for this complicated by current MSSA bacteremia with ongoing treatment
#reported hx LV thrombus
-Dx 2 weeks prior to arrival at [facility], suspect due to severely depressed LVEF
-Started on Coumadin anticoagulation 06/07/2024 for LV apical thrombus
-Coumadin on hold, had been on hep gtt for potential procedures however heparin now held due to large left-sided retroperitoneal hematoma
Left retroperitoneal hematoma:
-Large but stable on repeat imaging 07/01
-Continue holding anticoagulation
Progressive/persistent Anemia
-Secondary to blood loss from procedures and retroperitoneal hematoma
-Status post transfusion 10 units so far this admission
-monitor H&H and transfuse as necessary Hgb<7.5
-Protonix IV 40 mg daily
# MSSA bacteremia
-Blood cultures from 06/20 positive for MSSA [correction to prior documentation], repeat cultures from 06/22 also positive
-Suspect secondary to left hallux wet gangrene, which itself is suspected due to embolic effect, status post amputation
-Antibiotics now narrowed to cefazolin 2 g IV every 8 hours, will likely need home IV antibiotics after discharge to complete 6-week course
-Repeat transthoracic echo 06/24 notable for thickened mitral valves
-Appreciate guidance from ID and podiatry
-strict NWB and elevation LLE as per Podiatry
#Left hallux gangrene:
-Suspect secondary to embolism as also caused stroke
-wound cx pos MSSA
-Status post partial amputation in the OR with podiatry 06/23
-Planned for revascularization 06/24 aborted d/t PE/Vfib arrest as above
-Continue local wound care, antibiotics with cefazolin
#CVA
- Suspect secondary to cardiac emboli
� Acute/subacute infarct in the right periventricular white matter/centrum semiovale region
� Currently holding anticoagulation due to large left retroperitoneal hematoma
� Neurology consult appreciated
� Carotids unremarkable
- hold PT OT d/t critical illness requiring ICU care as above
#Acute on chronic HFrEF
EF 15-20%
-Cardio eval appreciated
-Continue Lasix 40 mg p.o. twice daily
-Beta-blockade with Coreg
-Restarting Entresto
-Farxiga resumed, cont
#Choledocholithiasis
-ERCP 06/21 with stone identified and removed and biliary sphincterotomy performed
-GI eval appreciated
#Transaminitis
� Secondary to choledocholithiasis, ERCP performed 06/21
� Resolving after ERCP
#GHAZAL
-Initial creat 1.6 since improved
-CKD III ruled out with resolution GHAZAL
-monitor
#DM 2/diabetic neuropathy
-Uncontrolled, hemoglobin A1c 10.8% this admission
-DM AIRCRAFT MAINTENANCE MANAGER eval appreciated
-Currently Lantus 15 units twice daily and sliding scale insulin
-Farxiga resumed
-Gabapentin 600 mg daily on hold d/t Encephalopathy as above
#Constipation
cont Miralax and Sennosides, consider Lactulose if no improvement
#Mild Hyponatremia
monitor
#HLD
-Continue statin
#Nicotine dependence
DVT prophylaxis SCDs
Full code
Guarded Prognosis
Anticipated Discharge: > 48 hours
Subjective/Interval History
-
Date of Service: July 03, 2024
Patient was seen and examined at bedside this morning. Appears restless with constant tossing and turning. Attempting to take protective mitts off with his teeth.
Objective Data
-
Labs:
Laboratory Results
07/03/24
04:00
WBC 9.8
Hgb 7.7 L
Hct 23.7 L
Plt Count 218
Sodium 144
Potassium 4.1
Chloride 109 H
Carbon Dioxide 33 H
BUN 62 H
Creatinine 1.1
Glucose 99
Calcium 7.9 L
Vital Signs:
Vital Signs
Temp Pulse Resp BP Pulse Ox
97.7 F 61 17 137/87 97
07/03/24 11:30 07/03/24 12:00 07/03/24 12:00 07/03/24 12:00 07/03/24 12:56
I&O
07/02/24 07/03/24 07/04/24
06:59 06:59 06:59
Intake Total 470 / 470 620 / 620 120 / 120
Output Total 250 / 250
Balance 220 / 220 620 / 620 120 / 120
Review of Systems
-
Unable to obtain full review of systems at this time due to: Acuity
Physical Exam
-
General: No Apparent Distress
[2024-07-03 17:06] LABS: Glucose - Point of Care 83 mg/dl (70-99)
[2024-07-03] MEDS: ENTRESTO 24 MG/26 MG 1 TAB PO (19:47)
[2024-07-03] MEDS: SENOKOT 17.2 MG PO (19:51)
[2024-07-03 21:38] LABS: Glucose - Point of Care 99 mg/dl (70-99)
[2024-07-04] VITALS (17 sets, daily range): BP systolic 135–184; BP diastolic 64–121; BMI 27.3
[2024-07-04 04:38] LABS: Blood Urea Nitrogen 50 mg/dl (9-20); Calcium 7.7 mg/dl (8.4-10.2); Carbon Dioxide 30 mmol/L (22-30); Chloride 109 mmol/L (98-107); Estimated Creatinine Clearance 90 ml/min; Glucose 51 mg/dl (70-99); Potassium 3.7 mmol/L (3.5-5.1); Sodium 145 mmol/L (135-145); eGFR > 60.00
[2024-07-04 04:48] LABS: Glucose - Point of Care 58 mg/dl (70-99)
[2024-07-04 05:09] LABS: Glucose - Point of Care 68 mg/dl (70-99)
[2024-07-04] MEDS: ANCEF 10 IV ×3 (05:23→21:21)
[2024-07-04 05:25] LABS: Glucose - Point of Care 91 mg/dl (70-99)
[2024-07-04 07:32] LABS: Glucose - Point of Care 124 mg/dl (70-99)
[2024-07-04] MEDS: NOVOLOG FLEXPEN-MODERATE RESISTANCE SC (07:55)
--- NOTE | 2024-07-04 08:21 | PN.DE.MGMTRT ---
Insulin Management
- -
07/04/2024: Diabetes Management Follow up
63 year old male who presented to ER on 06/18/24 with report of AMS changes, of staring, garbled speech, confusion, and balance difficulty lasting an unclear amount of time. Of note, pt was recently admitted at [facility] for LV thrombus
and HFrEF (on Coumadin).
PMH: NICM, mild MR, HTN, Hypercholesterolemia Renal insufficiency, RLE Cellulitis, nicotine use and IDDM. Prior to admission was taking Levemir 20 units BID, Humalog 5 units AC and Farxiga 10mg daily prior to admission. A1C 10.8%.
Pt was also noted for a chronic nonhealing left foot wound as well as a more acute gangrenous left hallux and associated foot infection. He underwent a partial first ray resection on 06/23.
OR 06/24/24 for RLE percutaneous revascularization. Upon anesthesia induction patient PEA/Vfib arrested and underwent ACLS until ROSC was achieved and procedure was aborted.
Patient awake, in bed, restless, nursing students providing AM care. Offers no complaints, unable to interview.
Information obtained from chart review. Cr 1, eGFR >60 today.
Speech eval on 07/02, recommend minced moist diet, patient consuming ~ 50% of meal.
Glucose range 07/03 83 to 99, pt receiving Lantus 15 units BID with moderate corrective insulin AC and Farxiga 10 mg daily.
FBG this AM is 51. Lantus reduced to 10 units BID, reduced moderate to low corrective insulin and Farxiga 10 mg daily.
Pre lunch glucose 113.
Discussed with nurse.
Will cont to follow.
Diabetes History
- -
Type of Diabetes: 2 requiring insulin
Pre-Admission Diabetes Regimen
07/04/24
03:57
Creatinine 1.0
Lab Results
Hemoglobin A1c 10.8 % (4.0-5.6) H 06/19/24 05:43
Insulin Pump Settings
IP Diabetes Regimen
07/03/24 07/03/24 07/03/24
08:42 13:13 16:54
Glucose
POC Glucose 86 93 83
07/03/24 07/04/24 07/04/24
21:28 03:57 04:36
Glucose 51 L*
POC Glucose 99 58 L
07/04/24 07/04/24 07/04/24
04:58 05:14 07:19
Glucose
POC Glucose 68 L 91 124 H
Meal type: Dinner
Meal type: Lunch
Meal type: Breakfast
Amount consumed: 50%
Amount consumed: 75%
Amount consumed: 10%
Patient Education
[2024-07-04] MEDS: LANTUS 0.1 UNITS SC ×2 (08:44→21:21)
[2024-07-04] MEDS: KCL ELIXIR 20 MEQ PO (08:45)
[2024-07-04] MEDS: SENOKOT PO ×2 (08:45→20:05)
[2024-07-04] MEDS: MIRALAX PO (08:45)
[2024-07-04] MEDS: LASIX 40 MG PO ×2 (08:45→17:26)
[2024-07-04] MEDS: PACERONE 200 MG PO ×2 (08:45→20:03)
[2024-07-04] MEDS: COREG 12.5 MG PO ×2 (08:45→20:02)
[2024-07-04] MEDS: ENTRESTO 24 MG/26 MG 1 TAB PO ×2 (08:46→20:03)
[2024-07-04] MEDS: TYLENOL 1000 MG PO (08:46)
[2024-07-04] MEDS: LANTUS SC (08:50)
[2024-07-04] MEDS: PROTONIX 40 MG PO (08:50)
[2024-07-04] MEDS: FARXIGA 10 MG PO (08:50)
--- NOTE | 2024-07-04 09:00 | W.PN.ID1 ---
Date of Service
Date of Service: July 04, 2024
Today's Communication
- Continue cefazolin 2g IV q8 (day 12 of 42 of abx, 06/22-08/02)
- recommend completing 6 weeks course of IV antibiotics with AICD placement afterwards, alternatively would consider suppression
- PICC line placement when approaching DC, currently with a midline
Assessment / Plan
MSSA Bacteremia
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
PEA/v fib arrest 06/24
Acute large left retroperitoneal hematoma with blood-loss anemia
CVA
Encephalopathy - Brain MRI no acute pathology
Dm2; uncontrolled
Leukocytosis - trending down
Choledocholithiasis s/p ERCP with 06/21 - resolved
- 06/21 and 06/22 blood cultures finalized negative
- Toe swab cx MSSA. Toe amp path: viable margin with focal osteomyelitis
- initial TTE 06/20 without vegetations; recent history of LV thrombus, not seen on this study
- Repeat TTE done 06/24 notable for thickened mitral valves, would recommend AICD placement after completion of treatment for possible endocarditis
- Continue cefazolin 2g IV q8 (day 12 of 42 of abx, 06/22-08/02)
- recommend completing 6 weeks course of IV antibiotics with AICD placement afterwards, alternatively would consider suppression
- PICC line placement when approaching DC, currently with a midline
����������������������������������������������������������
Chief Complaint
-: Other (mssa bacteremia, possible endocarditis)
Subjective / Review of Systems
afebrile
bp stable
no events documented overnight
Vital Signs / Physical Exam
Vital Signs
Vital Signs
Temp Pulse Resp BP Pulse Ox
97.6 F 72 16 148/89 97
07/04/24 07:32 07/04/24 08:45 07/04/24 05:00 07/04/24 08:45 07/04/24 05:00
Physical Exam
Constitutional: No Acute Distress
Cardiovascular: Regular Rate and S1/S2; Negative Murmur or Rub
Pulmonary: Clear and Symmetric; Negative Wheezes or Rales
Gastrointestinal: Soft, Non Tender, Non Distended and Normal Bowel Sounds
Skin: Warm and Dry; Negative Rash or Jaundice
Neurological: Awake; Negative Oriented
Psychological: Confused
Objective Data
Lab Data
Lab Results
07/03/24 04:00
07/04/24 03:57
PT 18.8 Sec (11.4-14.6) H 06/27/24 03:27
INR 1.52 06/27/24 03:27
APTT 78.0 Sec (23.4-35.0) H 06/30/24 17:59
Estimated Creat Clear 90 ml/min 07/04/24 03:57
Lactic Acid 1.0 mmol/L (0.7-2.0) 06/26/24 08:48
Total Bilirubin 1.8 mg/dl (0.2-1.3) H 06/27/24 03:27
AST 36 U/L (17-59) 06/27/24 03:27
ALT 30 U/L (0-50) 06/27/24 03:27
Alkaline Phosphatase 187 U/L (38-126) H 06/27/24 03:27
Most recent labs reviewed.
Micro Results:
06/22/24 13:23 Blood Culture - Final
Blood/Venous No Growth - Final Report
06/21/24 09:33 Blood Culture - Final
Blood/Venous No Growth - Final Report
06/22/24 14:36 Wound Culture - Final
Abscess S aureus-Methicillin Sensitive
Gram Stain - Final
06/20/24 00:42 Blood Culture - Final
Blood/Venous S aureus-Methicillin Sensitive
Gram Stain - Final
06/20/24 01:59 Blood Culture - Final
Blood/Venous S aureus-Methicillin Sensitive
Gram Stain - Final
06/18/24 16:51 Urine Culture - Final
Urine NO GROWTH
06/18/24 16:11 Influenza Types A & B (HUBER) - Final
Nasal Swab Negative for Influenza A & B, NAAT
Negative results must be combined with clinical observations
and patient history.
Nucleic Acid Amplification test (NAAT)performed on the
[employer] platform.
Imaging:
06/24/2024 ECHO (TTE): Normal LV chamber size. Severely reduced LV systolic function with EF approximately 10 to 15%. Severe global hypokinesis. Mitral valve opens normally, but is noted to have thickened leaflets and mitral annular calcification.
Mild mitral regurgitation. Please see full dictation for additional detail.
06/30/24 Brain MRI: No clear MRI evidence for an acute intracranial abnormality within the significant limitations of extensive motion artifact during this exam.
[2024-07-04 09:38] LABS: Glucose - Point of Care 105 mg/dl (70-99)
[2024-07-04 12:24] LABS: Glucose - Point of Care 113 mg/dl (70-99)
--- NOTE | 2024-07-04 12:28 | CM ---
Reviewed the chart notes and spoke with the patient and his spouse at the bedside. The patient remains with bilateral hand mitts and is cognitively confused. Per notes, patient will require a six week course of abx. PT/OT ordered today. CM
continues to be available to patient/family and is monitoring medical plan for needs at discharge.
Plan: Discharge plans will depend on the patient's progress.
[2024-07-04] MEDS: NOVOLOG FLEXPEN-LOW RESISTANCE SC ×2 (12:58→17:45)
--- NOTE | 2024-07-04 13:24 | PTCARENOTE ---
Addendum entered by Jose Cool RN 07/04/24 13:27:
MD notified of patients bladder scan and straight cath amount, see documentation. will closely monitor.
Original Note:
Patient AAOx2, confused, restless, inappropriate language at times but overall pleasantly confused. at bedside. VSS. Remains with B/L wrist restraints. Wounds dressings CDI. Patient reports comfortable. Continuing to closely monitor.
--- NOTE | 2024-07-04 14:34 | W.PN.CARDCBS ---
Addendum entered and electronically signed by Damien Norman DO 07/04/24 18:27:
I saw and examined the patient.
The Application Programmer Analyst's note was reviewed and I agree with the note.
Comment:
Plan:
Continue higher dose Lasix 40 mg p.o. twice daily for diuresis
Cont GDMT including Coreg, Entresto and Farxiga
IV heparin and aspirin remain on hold following large left retroperitoneal hematoma June 30. Patient has received 10 units PRBCs.
Patient with require aspirin therapy when able.
We discussed with electrophysiology regarding consideration for ICD placement without cardiac catheterization.
If patient requires cardiac catheterization, would need to be able to tolerate antiplatelet/anticoagulation therapy.
Blood cultures now negative.
ID recommending patient receive 6 weeks of IV antibiotics with ICD afterwards
Continue oral amiodarone
Mental status remains labile
Discussed with nursing
Original Note:
Today's Communication / Plan
-
GDMT including Coreg, Entresto and Farxiga ordered
Continue with higher dose Lasix 40 mg PO BID
Heparin gtt and aspirin remain on hold following large left retroperitoneal hematoma on CT 06/30/2024, he has received 10 units PRBCs
Patient cannot have cardiac cath until he can at least tolerate aspirin
Patient does not necessarily need LHC for ICD placement
Impression / Plan
-
PCP: Dr. Sherwood
Cardiology: Dr. Ny, last seen 06/2022
Impression:
Intraoperative PEA/ventricular fibrillation arrest 06/24/2024
Admitted with confusion and acute HFrEF 06/18/24
Tiny nonhemorrhagic acute/subacute infarct in the right periventricular white matter/centrum semiovale region by MRI 06/19/2024
Recent admission to [facility] for acute HF and foot wound 06/06/24 until 06/12/24
Hypotension
Acute HFrEF
CM EF 15% by echo at [facility] 06/07/24
h/o improved NICM EF 25% by echo 03/2018 and then improved to 40% by echo 06/2022
Nonobstructive CAD by cath 2017
Medication noncompliance
Newly diagnosed LV thrombus
1.5 x 1.2 cm LV apical clot on echo at [facility] 06/07/24
Chronic warfarin managed by [facility]
started for LV clot 06/07/24
Supratherapeutic INR on admission
Hyponatremia
GHAZAL on CKD 3a
Elevated LFTs
Chews tobacco
Unwitnessed fall 06/20/2024
tele reviewed and no arrhythmia
Hyperglycemia
Anemia
Left retroperitoneal hematoma by CT 06/30/24
Echo 05/30/2024: [facility] study, EF 15 to 20%, severe global hypokinesis and septal dyskinesis, small and organized thrombus in the LV apex measuring 1.5 x 1.2 cm, grade 3 diastolic dysfunction, at least mildly dilated RV with reduced
systolic function, mild to moderate MR, mild pericardial effusion seen posteriorly without evidence of tamponade
Echo 06/20/24 with IV echo contrast: LV ejection fraction severely reduced, 15-20% with global hypokinesis. Dilated, hypokinetic right ventricle. Biatrial dilatation. Mild MR. Mild to moderate TR. Estimated pulmonary artery systolic pressure
50-55 mmHg. Small pericardial effusion without evidence of hemodynamic compromise. No LV apical thrombus
Plan:
-Continues to be pleasantly confused most of the time and required B/L wrist restraints to prevent him from removing IV
-CBC not performed 07/04/2024, but Hgb was down to 7.7 on 07/03/2024. Patient received a total of 10 units PRBCs this admission for large left-sided retroperitoneal hematoma, last transfusion was 07/01/2024 AM
-Heparin gtt and aspirin remain on hold
-Check CBC in AM, ordered by me, and if Hgb is stable will restart aspirin 81 mg daily
-Patient is not a candidate for LHC until he can tolerate aspirin and possibly even Plavix and warfarin given history of LV clot.
-Additionally if patient recovers neurologically and is cleared from an ID standpoint following MSSA bacteremia he would be a candidate for ICD placement following intraoperative PEA/VF arrest 06/24/24. Patient had been given propofol and fentanyl
and had undergone vascular access, but no other instrumentation at the time of his event. Patient had CPR with 4 shocks, magnesium IV, amiodarone 300 mg and then 150 mg and then ROSC. He then underwent TTM and was warmed on 06/26/2024.
-Patient would not necessarily need [facility] for ICD placement, will need input from EP as well.
-No recurrence of ventricular arrhythmia, but he has been maintained on amiodarone 200 mg BID, he has received a 3.6 gram PO load as of 07/04/24. QTc has been stable thus far.
-Known history of an ICM and EF down to 25% in 2017, then improved to 40% with medical therapy by last echo 06/2022 followed by noncompliance for unclear reasons and EF now down to 15% by echoes starting 05/30/24.
-Patient with new LV clot by echo at [facility] 05/30/2024. Echo repeated with [facility] at 06/20/24 and no evidence of LV apical thrombus.
-Patient then had MRI brain 06/20/24 that showed a tiny nonhemorrhagic acute/subacute infarct in the right periventricular white matter/centrum semiovale region. Neurology saw the patient and felt that this may have been an incidental finding as the
patient was felt to be cognitively intact without functional decline, but had an episode of confusion with garbled speech on admission.
-When patient had LV clot identified at [facility] he was started on warfarin, warfarin was held during this admission to allow for ERCP that was performed on 06/21/2024 and patient was bridged with heparin. Heparin gtt now on hold due to
evidence of a large left-sided retroperitoneal hematoma on CT scan 06/30/2024. [facility] manages INRs that are drawn at [facility] and the goal is 2-3.
-Weight is down 3 lbs overnight following increase of Lasix to 40 mg BID on 07/03/2024. Patient was taking 40 mg BID prior to admission
-Outpatient dose of Coreg 12.5 mg BID has been continued
-Outpatient dose of Entresto lowered to 24/26 mg twice daily and patient has been tolerating doses since 07/03/2024 PM
-Outpatient dose of spironolactone 25 mg daily has been on hold since admission due to hypotension
-Outpatient dose of Farxiga 10 mg daily has been continued
Summary of admission thus far: Admitted with change in mental status and found to have small nonhemorrhagic right hemispheric CVA, recently hospitalized with LV thrombus and acute and chronic HFrEF with left lower extremity wound infection. Also
with choledocholithiasis, status post ERCP and sphincterotomy with stone extraction 06/21/24. Underwent debridement of left foot wound and partial first ray amputation with podiatry on 06/23/24. Then taken to the vascular OR on 06/24/24 for peripheral
angiogram and possible intervention and upon induction of anesthesia had pulseless electrical activity degenerating into VF requiring ACLS and ultimately return of spontaneous circulation. Patient had TTM and was eventually extubated, but has not
recovered neurologically. Patient has also been receiving treatment for acute HFrEF during hospital stay. Patient also noted to have large left retroperitoneal hematoma by CT 06/30/2024 and has received 10 units PRBCs this admission. Heparin gtt
placed on hold 06/30/2024 and has not been resumed as of 07/04/2024. Aspirin also remains on hold
HPI: Patient came to [facility] from home yesterday with confusion and garbled speech and was admitted for acute HF and cardiology has been consulted. Patient is a poor historian and gave me permission to call his daughter. Also reviewed 67 pages of
records from recent [facility] admission. Patient had NICM diagnosed in 2018 and with GDMT his EF improved to 40% by last echo at in 06/2022. Patient then stopped coming to cardiology appts at , but reportedly did not start following elsewhere.
Patient then retired and stopped taking his medications on a regular schedule despite reminders from family. Patient started with LE wounds 02/2024 and following with wound care center and seemed to be improving. Patient then started with a cough
and saw his PCP 05/02/24 and lungs were clear and he was started on promethazine and albuterol. Patient was then admitted to [facility] with SOB 06/06/24 and during that admission was found to have EF down to 15% and he had a new LV clot and was started
on warfarin. Patient was also d/c'd to home on Coreg, Entresto and spironolactone which are meds he had been on when he was last seen in the cardiology office in 2022. Patient was diuresed with Lasix IV and d/c'd to home on Lasix 40 mg PO BID.
Patient's daughter reports that patient was not taking meds at home and when VN came to see him he had garbled speech and was sent to the ER.
Progress Note - Account Officer
Subjective
Date of Service: July 04, 2024
Denies pain
Objective
Labs:
07/03/24 04:00
07/04/24 03:57
Labs
Hgb 7.7 g/dL (13.0-18.0) L 07/03/24 04:00
Hct 23.7 % (39.0-52.0) L 07/03/24 04:00
Plt Count 218 10^3/uL (130-400) 07/03/24 04:00
PT 18.8 Sec (11.4-14.6) H 06/27/24 03:27
INR 1.52 06/27/24 03:27
APTT 78.0 Sec (23.4-35.0) H 06/30/24 17:59
Sodium 145 mmol/L (135-145) 07/04/24 03:57
Potassium 3.7 mmol/L (3.5-5.1) 07/04/24 03:57
BUN 50 mg/dl (9-20) H 07/04/24 03:57
Creatinine 1.0 mg/dL (0.7-1.3) 07/04/24 03:57
Glucose 51 mg/dl (70-99) L* 07/04/24 03:57
Vital Signs and I&O:
Vital Signs
Temp Pulse Resp BP Pulse Ox
98.1 F 59 21 137/81 97
07/04/24 11:00 07/04/24 12:01 07/04/24 12:01 07/04/24 12:00 07/04/24 12:01
Vital Signs
Temp Pulse Resp BP Pulse Ox
98.1 F 59 21 137/81 97
07/04/24 11:00 07/04/24 12:01 07/04/24 12:01 07/04/24 12:00 07/04/24 12:01
Intake & Output
07/02/24 07/03/24 07/04/24 07/05/24
06:59 06:59 06:59 06:59
Intake Total 470 / 470 620 / 620 240 / 240
Output Total 250 / 250 100 / 100
Balance 220 / 220 620 / 620 240 / 240 -100 / -100
Physical Exam
Physical Exam
GEN: Awake and alert
HEENT: MMM
LUNGS: RA. No audible wheeze
CV: SR with PVCs on tele.
ABD: ND
EXT: No edema.
SKIN: No rash
--- NOTE | 2024-07-04 16:55 | W.PN.HOSP.TC ---
Today's Communication/Plan
-
Assessment / Plan
Assessment / Plan
Physical Exam
GEN: Chronically ill-appearing, no acute distress
HEENT: EOMI, MMM
LUNGS: CTA B/L without wheeze or rales
CV: Normal sinus rhythm no murmurs gallops
ABD: soft, BS+, ND, left flank ecchymosis
EXT: left foot wound dressing clean dry intact
NEURO: Awake but confused, slow to respond, answers appropriately to simple questions
63M HFrEF CKD3 DM neuropathy HLD Nicotine dependence complicated hospital course with MSSA bacteremia, Left hallux gangrene, CVA suspect 2/2 cardiac emboli LV thrombus. Had partial amputation Lt Hallux Gangrene OR Podiatry 06/23. Patient was
planned for revascularization LLE 06/24 however developed PEA/Vfib arrest after anesthesia induction requiring ACLS. ROSC eventually achieved, patient was subsequently transferred to ICU intubated and requiring pressor support.
PEA/Vfib arrest following Anesthesia Induction 06/24/2024
Acute Anoxic Encephalopathy vs Delirium
-Underwent 3 rounds of ACLS and 4 defibrillations as per Cardio before ROSC was achieved
-CT head appreciated no acute abn's
-ECHO post-code appreciated EF 10-15% no significant change from prior ECHO 06/20/24
-transferred to ICU intubated and on pressor support
-amiodarone gtt transitioned to PO via ngt
-weaned off pressor support
-TTM completed, mental status improving but not at baseline
-Extubated 06/27, downgraded to IMU
-Reevaluated by RESIDENT CARE SUPERVISOR 07/01 who recommended okay for p.o. diet, started pur�ed diet, NG tube discontinued
-Brain MRI 06/29/24 noted no acute abn though limited study d/t motion defects
-He will need eventual cardiac cath and ICD, plans for this complicated by current MSSA bacteremia with ongoing treatment
#reported hx LV thrombus
-Dx 2 weeks prior to arrival at [facility], suspect due to severely depressed LVEF
-Started on Coumadin anticoagulation 06/07/2024 for LV apical thrombus
-Coumadin on hold, had been on hep gtt for potential procedures however heparin now held due to large left-sided retroperitoneal hematoma
Left retroperitoneal hematoma:
-Large but stable on repeat imaging 07/01
-Continue holding anticoagulation
Progressive/persistent Anemia
-Secondary to blood loss from procedures and retroperitoneal hematoma
-Status post transfusion 10 units so far this admission
-monitor H&H and transfuse as necessary Hgb<7.5
-Protonix IV 40 mg daily
# MSSA bacteremia
-Blood cultures from 06/20 positive for MSSA [correction to prior documentation], repeat cultures from 06/22 also positive
-Suspect secondary to left hallux wet gangrene, which itself is suspected due to embolic effect, status post amputation
-Antibiotics now narrowed to cefazolin 2 g IV every 8 hours, will likely need home IV antibiotics after discharge to complete 6-week course
-Repeat transthoracic echo 06/24 notable for thickened mitral valves
-Appreciate guidance from ID and podiatry
-strict NWB and elevation LLE as per Podiatry
#Left hallux gangrene:
-Suspect secondary to embolism as also caused stroke
-wound cx pos MSSA
-Status post partial amputation in the OR with podiatry 06/23
-Planned for revascularization 06/24 aborted d/t PE/Vfib arrest as above
-Continue local wound care, antibiotics with cefazolin
#CVA
- Suspect secondary to cardiac emboli
� Acute/subacute infarct in the right periventricular white matter/centrum semiovale region
� Currently holding anticoagulation due to large left retroperitoneal hematoma
� Neurology consult appreciated
� Carotids unremarkable
- hold PT OT d/t critical illness requiring ICU care as above
#Acute on chronic HFrEF
EF 15-20%
-Cardio eval appreciated
-Continue Lasix 40 mg p.o. twice daily
-Beta-blockade with Coreg
-Restarting Entresto
-Farxiga resumed, cont
Acute urinary retention:
-Orosco discontinued
-Requiring intermittent straight catheterization
-Will monitor urine output and bladder scans
-Renal function stable
#Choledocholithiasis
-ERCP 06/21 with stone identified and removed and biliary sphincterotomy performed
-GI eval appreciated
#Transaminitis
� Secondary to choledocholithiasis, ERCP performed 06/21
� Resolving after ERCP
#GHAZAL
-Initial creat 1.6 since improved
-CKD III ruled out with resolution GHAZAL
-monitor
#DM 2/diabetic neuropathy
-Uncontrolled, hemoglobin A1c 10.8% this admission
-DM LATEXER eval appreciated
-Was hypoglycemic this morning and so insulin regimen has been adjusted
-Currently Lantus 10 units twice daily and sliding scale insulin
-Farxiga resumed
-Gabapentin 600 mg daily on hold d/t Encephalopathy as above
#Constipation
cont Miralax and Sennosides, consider Lactulose if no improvement
#Mild Hyponatremia
monitor
#HLD
-Continue statin
#Nicotine dependence
DVT prophylaxis SCDs
Full code
Anticipated Discharge: > 48 hours
Subjective/Interval History
-
Date of Service: July 04, 2024
Patient was seen and examined at bedside this morning. Remains in [facility] for safety. Required straight catheterization for urinary retention. Otherwise comfortable with no complaints.
Objective Data
-
Vital Signs:
Vital Signs
Temp Pulse Resp BP Pulse Ox
97.3 F 61 13 164/92 97
07/04/24 15:29 07/04/24 16:00 07/04/24 16:00 07/04/24 16:00 07/04/24 16:00
I&O
07/03/24 07/04/24 07/05/24
06:59 06:59 06:59
Intake Total 620 / 620 240 / 240
Output Total 100 / 100
Balance 620 / 620 240 / 240 -100 / -100
Review of Systems
-
History Source: Patient
All other systems: Reviewed and negative
Physical Exam
-
General: No Apparent Distress
[2024-07-04 17:41] LABS: Glucose - Point of Care 73 mg/dl (70-99)
[2024-07-04 21:29] LABS: Glucose - Point of Care 121 mg/dl (70-99)
--- NOTE | 2024-07-04 21:50 | PTCARENOTE ---
Patient Aox2, confused and restless. Remains with bilateral mitts in place. NSR on monitor. Family at bedside. Patient grossly incontinent of urine, hygiene and care given. Assessment and vital signs as documented. continuing to monitor.
[2024-07-05] VITALS (14 sets, daily range): BP systolic 139–169; BP diastolic 71–125; PULSE 67–69; O2SAT 97–98; BMI 26.8
[2024-07-05 03:12] LABS: Glucose - Point of Care 82 mg/dl (70-99)
[2024-07-05 03:42] LABS: Hematocrit 24.9 % (39.0-52.0); Hemoglobin 8.2 g/dL (13.0-18.0); Mean Corp Hgb Conc. 32.9 g/dL (33.0-37.0); Mean Corpuscular Hgb 29.9 pg (27.0-31.0); Mean Corpuscular Volume 90.9 fL (80.0-94.0); Platelet Count 272 10^3/uL (130-400); Red Blood Cell Count 2.74 10^6/uL (4.70-6.10); Red Cell Dist. Width 16.4 % (11.5-14.5); White Blood Cell Count 8.7 10^3/uL (4.8-10.8)
[2024-07-05 04:17] LABS: ALT (SGPT) 13 U/L (0-50); AST (SGOT) 52 U/L (17-59); Albumin 2.4 g/dl (3.5-5.0); Alkaline Phosphatase 150 U/L (38-126); Blood Urea Nitrogen 40 mg/dl (9-20); Calcium 7.8 mg/dl (8.4-10.2); Carbon Dioxide 32 mmol/L (22-30); Chloride 107 mmol/L (98-107); Estimated Creatinine Clearance 90 ml/min; Glucose 77 mg/dl (70-99); Potassium 4.1 mmol/L (3.5-5.1); Sodium 142 mmol/L (135-145); Total Bilirubin 2.8 mg/dl (0.2-1.3); Total Protein 5.5 g/dl (6.3-8.2); eGFR > 60.00
[2024-07-05] MEDS: ANCEF 10 IV ×3 (05:01→21:18)
--- NOTE | 2024-07-05 07:03 | PN.DE.MGMTRT ---
Insulin Management
- -
07/05/2024: Diabetes Management Follow up
63 year old male who presented to ER on 06/18/24 with report of AMS changes, of staring, garbled speech, confusion, and balance difficulty lasting an unclear amount of time. Of note, pt was recently admitted at [facility] for LV thrombus
and HFrEF (on Coumadin).
PMH: NICM, mild MR, HTN, Hypercholesterolemia Renal insufficiency, RLE Cellulitis, nicotine use and IDDM. Prior to admission was taking Levemir 20 units BID, Humalog 5 units AC and Farxiga 10mg daily prior to admission. A1C 10.8%.
Pt was also noted for a chronic nonhealing left foot wound as well as a more acute gangrenous left hallux and associated foot infection. He underwent a partial first ray resection on 06/23.
OR 06/24/24 for RLE percutaneous revascularization. Upon anesthesia induction patient PEA/Vfib arrested and underwent ACLS until ROSC was achieved and procedure was aborted.
Patient awake, in bed, restless, offers no complaints, unable to interview.
Information obtained from chart review. Cr 1, eGFR >60 today.
Speech eval on 07/02, recommend minced moist diet, patient consuming ~ 50% of meal.
Glucose range 07/04 73 to 121, pt receiving Lantus 10 units BID with low corrective insulin AC and Farxiga 10 mg daily.
FBG this AM is 77 venous 82 POC. Will reduce Lantus to 7 units BID, continue low corrective insulin and Farxiga 10 mg daily.
Discussed with nurse.
Will cont to follow.
Diabetes History
- -
Type of Diabetes: 2 requiring insulin
Pre-Admission Diabetes Regimen
07/05/24
03:24
Creatinine 1.0
Lab Results
Hemoglobin A1c 10.8 % (4.0-5.6) H 06/19/24 05:43
Insulin Pump Settings
IP Diabetes Regimen
07/04/24 07/04/24 07/04/24
07:19 09:26 12:12
Glucose
POC Glucose 124 H 105 H 113 H
07/04/24 07/04/24 07/05/24
17:30 21:17 03:00
Glucose
POC Glucose 73 121 H 82
07/05/24
03:24
Glucose 77
POC Glucose
Meal type: Dinner
Meal type: Lunch
Meal type: Breakfast
Meal type: Breakfast
Amount consumed: 75%
Amount consumed: 15%
Amount consumed: 50%
Amount consumed: 50%
Patient Education
[2024-07-05] MEDS: SENOKOT PO ×2 (07:57→19:14)
[2024-07-05] MEDS: MIRALAX PO (07:57)
[2024-07-05] MEDS: NOVOLOG FLEXPEN-LOW RESISTANCE SC ×3 (08:10→17:33)
[2024-07-05] MEDS: KCL ELIXIR 20 MEQ PO (08:11)
[2024-07-05] MEDS: COREG 12.5 MG PO ×2 (08:11→20:15)
[2024-07-05] MEDS: FARXIGA 10 MG PO (08:12)
[2024-07-05] MEDS: PACERONE 200 MG PO ×2 (08:12→20:15)
[2024-07-05] MEDS: PROTONIX 40 MG PO (08:12)
[2024-07-05] MEDS: ENTRESTO 24 MG/26 MG 1 TAB PO ×2 (08:12→20:15)
[2024-07-05] MEDS: TYLENOL 1000 MG PO (08:12)
[2024-07-05] MEDS: LASIX 40 MG PO ×2 (08:12→17:30)
[2024-07-05 08:14] LABS: Glucose - Point of Care 80 mg/dl (70-99)
[2024-07-05] MEDS: LANTUS 0.07 UNITS SC ×2 (08:22→20:15)
--- NOTE | 2024-07-05 10:11 | W.PN.ID1 ---
Date of Service
Date of Service: July 05, 2024
Today's Communication
- Continue cefazolin 2g IV q8 (day 13 of 42 of abx, 06/22-08/02)
- recommend completing 6 weeks course of IV antibiotics with AICD placement afterwards, alternatively would consider suppression
- PICC line placement when approaching DC, currently with a midline
Assessment / Plan
MSSA Bacteremia
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
PEA/v fib arrest 06/24
Acute large left retroperitoneal hematoma with blood-loss anemia
CVA
Encephalopathy - Brain MRI no acute pathology
Dm2; uncontrolled
Leukocytosis - trending down
Choledocholithiasis s/p ERCP with 06/21 - resolved
- 06/21 and 06/22 blood cultures finalized negative
- Toe swab cx MSSA. Toe amp path: viable margin with focal osteomyelitis
- initial TTE 06/20 without vegetations; recent history of LV thrombus, not seen on this study
- Repeat TTE done 06/24 notable for thickened mitral valves, would recommend AICD placement after completion of treatment for possible endocarditis
- Continue cefazolin 2g IV q8 (day 13 of 42 of abx, 06/22-08/02)
- recommend completing 6 weeks course of IV antibiotics with AICD placement afterwards, alternatively would consider suppression
- PICC line placement when approaching DC, currently with a midline
����������������������������������������������������������
Chief Complaint
-: Other (mssa bacteremia, possible endocarditis)
Subjective / Review of Systems
afebrile
bp stable
confusion ongoing
Vital Signs / Physical Exam
Vital Signs
Vital Signs
Temp Pulse Resp BP Pulse Ox
98.6 F 70 13 163/98 96
07/05/24 07:25 07/05/24 08:11 07/05/24 06:00 07/05/24 08:11 07/05/24 06:00
Physical Exam
Constitutional: No Acute Distress and Chronically Ill
Cardiovascular: Regular Rate and S1/S2; Negative Murmur or Rub
Pulmonary: Clear and Symmetric; Negative Wheezes or Rales
Gastrointestinal: Soft, Non Tender, Non Distended and Normal Bowel Sounds
Skin: Warm and Dry; Negative Rash or Jaundice
Neurological: Awake
Psychological: Confused
Objective Data
Lab Data
Lab Results
07/05/24 03:24
07/05/24 03:24
PT 18.8 Sec (11.4-14.6) H 06/27/24 03:27
INR 1.52 06/27/24 03:27
APTT 78.0 Sec (23.4-35.0) H 06/30/24 17:59
Estimated Creat Clear 90 ml/min 07/05/24 03:24
Lactic Acid 1.0 mmol/L (0.7-2.0) 06/26/24 08:48
Total Bilirubin 2.8 mg/dl (0.2-1.3) H 07/05/24 03:24
AST 52 U/L (17-59) 07/05/24 03:24
ALT 13 U/L (0-50) 07/05/24 03:24
Alkaline Phosphatase 150 U/L (38-126) H 07/05/24 03:24
Most recent labs reviewed.
Micro Results:
06/22/24 13:23 Blood Culture - Final
Blood/Venous No Growth - Final Report
06/21/24 09:33 Blood Culture - Final
Blood/Venous No Growth - Final Report
06/22/24 14:36 Wound Culture - Final
Abscess S aureus-Methicillin Sensitive
Gram Stain - Final
06/20/24 00:42 Blood Culture - Final
Blood/Venous S aureus-Methicillin Sensitive
Gram Stain - Final
06/20/24 01:59 Blood Culture - Final
Blood/Venous S aureus-Methicillin Sensitive
Gram Stain - Final
06/18/24 16:51 Urine Culture - Final
Urine NO GROWTH
06/18/24 16:11 Influenza Types A & B (HUBER) - Final
Nasal Swab Negative for Influenza A & B, NAAT
Negative results must be combined with clinical observations
and patient history.
Nucleic Acid Amplification test (NAAT)performed on the
[employer] platform.
Imaging:
06/24/2024 ECHO (TTE): Normal LV chamber size. Severely reduced LV systolic function with EF approximately 10 to 15%. Severe global hypokinesis. Mitral valve opens normally, but is noted to have thickened leaflets and mitral annular calcification.
Mild mitral regurgitation. Please see full dictation for additional detail.
06/30/24 Brain MRI: No clear MRI evidence for an acute intracranial abnormality within the significant limitations of extensive motion artifact during this exam.
--- NOTE | 2024-07-05 11:53 | PTOTSP ---
Dysphagia Therapy
Impression: Suspect at least WFL-mild oral stage dysphagia that may fluctuate and is impacted by cognitive status. Risk for dysphagia elevated given AMS, dependence for feeding, and cognitive changes. Trial diet advancement below.
Recommend:
1. IDDSI Level 6 Soft/Bite Sized, IDDSI Level 0 Thin Liquids
2. Medications: crushed in puree if medically cleared to do so
3. Oral care 3-5x daily
4. Strategies: Full supervision/assistance, SMALL single sips, slow rate, check for oral clearance
5. Dysphagia tx at the acute care level to trial advanced consistencies and to determine if/when video swallow warranted
6. Continue cognitive linguistic tx at the acute care level as able/appropriate
--- NOTE | 2024-07-05 12:26 | W.PN.CARDCBS ---
Today's Communication / Plan
-
He remains confused. At this point I would hold off on inpatient ICD with his bacteremia and continued mental status issues.
I would recommend LifeVest prior to discharge. He should continue long-term antibiotics and then we will reassess him as an outpatient pending his mental status for ICD.
Will restart aspirin today. Hemoglobin stable at 8.2. Would hold off on restarting full anticoagulation with recent retroperitoneal bleed.
Continue Coreg, Entresto, Farxiga and p.o. Lasix.
Will restart spironolactone 25 mg daily as his blood pressure has been increasing.
Likely will need rehab. Will start working on LifeVest evaluation.
Impression / Plan
-
PCP: Dr. Sherwood
Cardiology: Dr. Ny, last seen 06/2022
Impression:
Intraoperative PEA/ventricular fibrillation arrest 06/24/2024
Admitted with confusion and acute HFrEF 06/18/24
Tiny nonhemorrhagic acute/subacute infarct in the right periventricular white matter/centrum semiovale region by MRI 06/19/2024
Recent admission to [facility] for acute HF and foot wound 06/06/24 until 06/12/24
Hypotension
Acute HFrEF
CM EF 15% by echo at [facility] 06/07/24
h/o improved NICM EF 25% by echo 03/2018 and then improved to 40% by echo 06/2022
Nonobstructive CAD by cath 2017
Medication noncompliance
Newly diagnosed LV thrombus
1.5 x 1.2 cm LV apical clot on echo at [facility] 06/07/24
Chronic warfarin managed by [facility]
started for LV clot 06/07/24
Supratherapeutic INR on admission
Hyponatremia
GHAZAL on CKD 3a
Elevated LFTs
Chews tobacco
Unwitnessed fall 06/20/2024
tele reviewed and no arrhythmia
Hyperglycemia
Anemia
Left retroperitoneal hematoma by CT 06/30/24
Echo 05/30/2024: [facility] study, EF 15 to 20%, severe global hypokinesis and septal dyskinesis, small and organized thrombus in the LV apex measuring 1.5 x 1.2 cm, grade 3 diastolic dysfunction, at least mildly dilated RV with reduced
systolic function, mild to moderate MR, mild pericardial effusion seen posteriorly without evidence of tamponade
Echo 06/20/24 with IV echo contrast: LV ejection fraction severely reduced, 15-20% with global hypokinesis. Dilated, hypokinetic right ventricle. Biatrial dilatation. Mild MR. Mild to moderate TR. Estimated pulmonary artery systolic pressure
50-55 mmHg. Small pericardial effusion without evidence of hemodynamic compromise. No LV apical thrombus
Plan:
-Continues to be pleasantly confused most of the time and required B/L wrist restraints to prevent him from removing IV
-Hemoglobin overall stable at 8.2. Patient received a total of 10 units PRBCs this admission for large left-sided retroperitoneal hematoma, last transfusion was 07/01/2024 AM
-Heparin gtt on hold. Will restart aspirin.
-Patient is not a candidate for LHC until he can tolerate aspirin and possibly even Plavix and warfarin given history of LV clot.
-Additionally if patient recovers neurologically and is cleared from an ID standpoint following MSSA bacteremia he would be a candidate for ICD placement following intraoperative PEA/VF arrest 06/24/24. Patient had been given propofol and fentanyl
and had undergone vascular access, but no other instrumentation at the time of his event. Patient had CPR with 4 shocks, magnesium IV, amiodarone 300 mg and then 150 mg and then ROSC. He then underwent TTM and was warmed on 06/26/2024.
-Patient would not necessarily need LHC for ICD placement. With bacteremia would hold off on ICD therapy. I would recommend a LifeVest at this time and let him recover.
-No recurrence of ventricular arrhythmia, but he has been maintained on amiodarone 200 mg BID, he has received a 3.6 gram PO load as of 07/04/24. QTc has been stable thus far.
-Known history of an ICM and EF down to 25% in 2018, then improved to 40% with medical therapy by last echo 06/2022 followed by noncompliance for unclear reasons and EF now down to 15% by echoes starting 05/30/24.
-Patient with new LV clot by echo at [facility] 05/30/2024. Echo repeated with [facility] at 06/20/24 and no evidence of LV apical thrombus.
-Patient then had MRI brain 06/20/24 that showed a tiny nonhemorrhagic acute/subacute infarct in the right periventricular white matter/centrum semiovale region. Neurology saw the patient and felt that this may have been an incidental finding as the
patient was felt to be cognitively intact without functional decline, but had an episode of confusion with garbled speech on admission.
-When patient had LV clot identified at [facility] he was started on warfarin, warfarin was held during this admission to allow for ERCP that was performed on 06/21/2024 and patient was bridged with heparin. Heparin gtt now on hold due to
evidence of a large left-sided retroperitoneal hematoma on CT scan 06/30/2024. [facility] manages INRs that are drawn at [facility] and the goal is 2-3.
-Weight is down 3 lbs overnight following increase of Lasix to 40 mg BID on 07/03/2024. Patient was taking 40 mg BID prior to admission
-Outpatient dose of Coreg 12.5 mg BID has been continued
-Outpatient dose of Entresto lowered to 24/26 mg twice daily and patient has been tolerating doses since 07/03/2024 PM
-Outpatient dose of spironolactone 25 mg daily has been on hold since admission. Will resume today.
-Outpatient dose of Farxiga 10 mg daily has been continued
Summary of admission thus far: Admitted with change in mental status and found to have small nonhemorrhagic right hemispheric CVA, recently hospitalized with LV thrombus and acute and chronic HFrEF with left lower extremity wound infection. Also
with choledocholithiasis, status post ERCP and sphincterotomy with stone extraction 06/21/24. Underwent debridement of left foot wound and partial first ray amputation with podiatry on 06/23/24. Then taken to the vascular OR on 06/24/24 for peripheral
angiogram and possible intervention and upon induction of anesthesia had pulseless electrical activity degenerating into VF requiring ACLS and ultimately return of spontaneous circulation. Patient had TTM and was eventually extubated, but has not
recovered neurologically. Patient has also been receiving treatment for acute HFrEF during hospital stay. Patient also noted to have large left retroperitoneal hematoma by CT 06/30/2024 and has received 10 units PRBCs this admission. Heparin gtt
placed on hold 06/30/2024 and has not been resumed as of 07/04/2024. Aspirin also remains on hold
HPI: Patient came to [facility] from home yesterday with confusion and garbled speech and was admitted for acute HF and cardiology has been consulted. Patient is a poor historian and gave me permission to call his daughter. Also reviewed 67 pages of
records from recent [facility] admission. Patient had NICM diagnosed in 2018 and with GDMT his EF improved to 40% by last echo at in 06/2022. Patient then stopped coming to cardiology appts at , but reportedly did not start following elsewhere.
Patient then retired and stopped taking his medications on a regular schedule despite reminders from family. Patient started with LE wounds 02/2024 and following with wound care center and seemed to be improving. Patient then started with a cough
and saw his PCP 05/02/24 and lungs were clear and he was started on promethazine and albuterol. Patient was then admitted to [facility] with SOB 06/06/24 and during that admission was found to have EF down to 15% and he had a new LV clot and was started
on warfarin. Patient was also d/c'd to home on Coreg, Entresto and spironolactone which are meds he had been on when he was last seen in the cardiology office in 2022. Patient was diuresed with Lasix IV and d/c'd to home on Lasix 40 mg PO BID.
Patient's daughter reports that patient was not taking meds at home and when VN came to see him he had garbled speech and was sent to the ER.
Progress Note - Director Of Recreation Therapy
Subjective
Date of Service: July 05, 2024
More alert but still confused. Still in soft limb restraints. Denies chest pains or shortness of breath
Objective
Labs:
07/05/24 03:24
07/05/24 03:24
Labs
Hgb 8.2 g/dL (13.0-18.0) L 07/05/24 03:24
Hct 24.9 % (39.0-52.0) L 07/05/24 03:24
Plt Count 272 10^3/uL (130-400) D 07/05/24 03:24
PT 18.8 Sec (11.4-14.6) H 06/27/24 03:27
INR 1.52 06/27/24 03:27
APTT 78.0 Sec (23.4-35.0) H 06/30/24 17:59
Sodium 142 mmol/L (135-145) 07/05/24 03:24
Potassium 4.1 mmol/L (3.5-5.1) 07/05/24 03:24
BUN 40 mg/dl (9-20) H 07/05/24 03:24
Creatinine 1.0 mg/dL (0.7-1.3) 07/05/24 03:24
Glucose 77 mg/dl (70-99) 07/05/24 03:24
Vital Signs and I&O:
Vital Signs
Temp Pulse Resp BP Pulse Ox
98.6 F 64 15 139/71 96
07/05/24 07:25 07/05/24 11:10 07/05/24 11:10 07/05/24 11:10 07/05/24 10:27
Vital Signs
Temp Pulse Resp BP Pulse Ox
98.6 F 64 15 139/71 96
07/05/24 07:25 07/05/24 11:10 07/05/24 11:10 07/05/24 11:10 07/05/24 10:27
Intake & Output
07/03/24 07/04/24 07/05/24 07/06/24
06:59 06:59 06:59 06:59
Intake Total 620 / 620 240 / 240 1260 / 1260
Output Total 100 / 100 550 / 550
Balance 620 / 620 240 / 240 1160 / 1160 -550 / -550
Physical Exam
Physical Exam
GEN: No distress, awake, Ox3
HEENT: supple, anicteric, mmm
LUNGS: CTA, no wheezes/rales
CV: Reg, S1/S2, 1/6 syst LSB, no gallop
ABD: soft, BS+, NT/ND
EXT: No edema
NEURO: Gross non-focal
SKIN: No rash
[2024-07-05 13:28] LABS: Glucose - Point of Care 134 mg/dl (70-99)
--- NOTE | 2024-07-05 13:30 | PTCARENOTE ---
Patient AAOx1-2. Confused, impulsive, occasionally trying to bite off mitts, overall pleasant. Bed alarm on, b/L mitts on. Family at bedside. VSS. Tolerating diet. Patient requiring frequent redirection. Continuing to closely monitor.
[2024-07-05] MEDS: ALDACTONE 25 MG PO (15:07)
--- NOTE | 2024-07-05 16:00 | W.PN.HOSP.TC ---
Today's Communication/Plan
-
Assessment / Plan
Assessment / Plan
Physical Exam
GEN: Chronically ill-appearing, no acute distress
HEENT: EOMI, MMM
LUNGS: CTA B/L without wheeze or rales
CV: Normal sinus rhythm no murmurs gallops
ABD: soft, BS+, ND, left flank ecchymosis
EXT: left foot wound dressing clean dry intact
NEURO: Awake but confused, slow to respond, difficulty following commands
63M HFrEF CKD3 DM neuropathy HLD Nicotine dependence complicated hospital course with MSSA bacteremia, Left hallux gangrene, CVA suspect 2/2 cardiac emboli LV thrombus. Had partial amputation Lt Hallux Gangrene OR Podiatry 06/23. Patient was
planned for revascularization LLE 06/24 however developed PEA/Vfib arrest after anesthesia induction requiring ACLS. ROSC eventually achieved, patient was subsequently transferred to ICU intubated and requiring pressor support.
PEA/Vfib arrest following Anesthesia Induction 06/24/2024
Acute Anoxic Encephalopathy vs Delirium
-Underwent 3 rounds of ACLS and 4 defibrillations as per Cardio before ROSC was achieved
-ECHO post-code appreciated EF 10-15% no significant change from prior ECHO 06/20/24
-weaned off pressor support
-TTM completed, mental status improving but not at baseline
-Extubated 06/27, downgraded to IMU
-Brain MRI 06/29/24 noted no acute abn though limited study d/t motion defects
-He will need eventual cardiac cath and ICD, plans for this complicated by current MSSA bacteremia with ongoing treatment
-Dose aspirin today 07/05
#reported hx LV thrombus
-Dx 2 weeks prior to arrival at [facility], suspect due to severely depressed LVEF
-Started on Coumadin anticoagulation 06/07/2024 for LV apical thrombus
-Coumadin on hold, had been on hep gtt for potential procedures however heparin now held due to large left-sided retroperitoneal hematoma
Left retroperitoneal hematoma:
-Large but stable on repeat imaging 07/01
-Continue holding anticoagulation
Progressive/persistent Anemia
-Secondary to blood loss from procedures and retroperitoneal hematoma
-Status post transfusion 10 units so far this admission
-monitor H&H every 48 hours and transfuse as necessary Hgb<7.5
-Protonix IV 40 mg daily
# MSSA bacteremia
-Blood cultures from 06/20 positive for MSSA [correction to prior documentation], repeat cultures from 06/22 also positive
-Suspect secondary to left hallux wet gangrene, which itself is suspected due to embolic effect, status post amputation
-Antibiotics now narrowed to cefazolin 2 g IV every 8 hours, today is of antibiotics to be completed 08/02, PICC line placement when approaching DC
-Repeat transthoracic echo 06/24 notable for thickened mitral valves
-Appreciate guidance from ID and podiatry
-strict NWB and elevation LLE as per Podiatry
#Left hallux gangrene:
-Suspect secondary to embolism as also caused stroke
-wound cx pos MSSA
-Status post partial amputation in the OR with podiatry 06/23
-Planned for revascularization 06/24 which was aborted d/t PE/Vfib arrest as above
-Continue local wound care, antibiotics with cefazolin
#CVA
- Suspect secondary to cardiac emboli
� Acute/subacute infarct in the right periventricular white matter/centrum semiovale region
� Currently holding anticoagulation due to large left retroperitoneal hematoma
� Neurology consult appreciated
� Carotids unremarkable
-Now tolerating PT/OT, to be reevaluated by physiatry
-Restarted aspirin 81 mg daily
#Acute on chronic HFrEF
EF 15-20%
-Cardio eval appreciated
-Continue Lasix 40 mg p.o. twice daily
-Beta-blockade with Coreg
-Restarted Entresto and spironolactone
-Farxiga resumed
Acute urinary retention:
-Orosco discontinued
-Requiring intermittent straight catheterization
-Will monitor urine output and bladder scans
-Renal function stable
#Choledocholithiasis
-ERCP 06/21 with stone identified and removed and biliary sphincterotomy performed
-GI eval appreciated
#Transaminitis
� Secondary to choledocholithiasis, ERCP performed 06/21
� Resolving after ERCP
#GHAZAL
-Initial creat 1.6 since improved
-CKD III ruled out with resolution GHAZAL
-monitor
#DM 2/diabetic neuropathy
-Uncontrolled, hemoglobin A1c 10.8% this admission
-DM [employer] eval appreciated
-Was hypoglycemic this morning and so insulin regimen has been adjusted
-Currently Lantus 10 units twice daily and sliding scale insulin
-Farxiga resumed
-Gabapentin 600 mg daily on hold d/t Encephalopathy as above
#Constipation
cont Miralax and Sennosides, consider Lactulose if no improvement
#Mild Hyponatremia
monitor
#HLD
-Continue statin
#Nicotine dependence
DVT prophylaxis SCDs
Full code
Anticipated Discharge: > 48 hours
Subjective/Interval History
-
Date of Service: July 05, 2024
Patient was seen and examined at bedside this morning. Working with PT. He is awake and alert but still has significant confusion and difficulty with following commands.
Objective Data
-
Labs:
Laboratory Results
07/05/24
03:24
Sodium 142
Potassium 4.1
Chloride 107
Carbon Dioxide 32 H
BUN 40 H
Creatinine 1.0
Glucose 77
Calcium 7.8 L
Total Bilirubin 2.8 H
AST 52
ALT 13
Alkaline Phosphatase 150 H
Vital Signs:
Vital Signs
Temp Pulse Resp BP Pulse Ox
98.6 F 71 13 143/71 97
07/05/24 07:25 07/05/24 15:08 07/05/24 15:08 07/05/24 15:08 07/05/24 15:08
I&O
07/04/24 07/05/24 07/06/24
06:59 06:59 06:59
Intake Total 240 / 240 1260 / 1260
Output Total 100 / 100 950 / 950
Balance 240 / 240 1160 / 1160 -950 / -950
Review of Systems
-
Unable to obtain full review of systems at this time due to: Acuity
History Source: Patient
All other systems: Reviewed and negative
Physical Exam
-
General: No Apparent Distress
[2024-07-05 17:44] LABS: Glucose - Point of Care 136 mg/dl (70-99)
[2024-07-05 21:22] LABS: Glucose - Point of Care 154 mg/dl (70-99)
[2024-07-06] VITALS (14 sets, daily range): BP systolic 126–170; BP diastolic 74–109; PULSE 69; O2SAT 98; BMI 25.5
[2024-07-06 03:40] LABS: Glucose - Point of Care 124 mg/dl (70-99)
[2024-07-06 03:47] LABS: % Basophils 0.4 % (0-2); % Eosinophils 1.8 % (0-6); % Immature Granulocytes 0.4 % (0-0.5); % Lymphocytes 7.5 % (20.5-51.1); % Neutrophils 81.9 % (42.2-75.2); Absolute Eosinophils 0.2 10^3/uL (0-0.7); Absolute Lymphocytes 0.8 10^3/uL (1.2-3.4); Absolute Monocytes 0.8 10^3/uL (0.1-0.6); Absolute Neutrophils 8.3 10^3/uL (1.4-6.5); Hematocrit 25.6 % (39.0-52.0); Hemoglobin 8.4 g/dL (13.0-18.0); Mean Corp Hgb Conc. 32.8 g/dL (33.0-37.0); Mean Corpuscular Volume 91.4 fL (80.0-94.0); Mean Platelet Volume 10.3 fL (7.4-10.4); Nucleated Red Blood Cells % 0 % (-); Platelet Count 285 10^3/uL (130-400); Red Cell Dist. Width 16.3 % (11.5-14.5); White Blood Cell Count 10.1 10^3/uL (4.8-10.8)
[2024-07-06 04:22] LABS: Blood Urea Nitrogen 33 mg/dl (9-20); Calcium 7.6 mg/dl (8.4-10.2); Carbon Dioxide 33 mmol/L (22-30); Chloride 106 mmol/L (98-107); Estimated Creatinine Clearance 90 ml/min; Glucose 107 mg/dl (70-99); Potassium 4.4 mmol/L (3.5-5.1); Sodium 141 mmol/L (135-145); eGFR > 60.00
--- NOTE | 2024-07-06 04:38 | PTCARENOTE ---
Patient agitated, cursing, and combative with care. B/L mitts in place. Incontinent of stool and digging hands into stool.
[2024-07-06] MEDS: ANCEF 10 IV ×3 (05:28→21:03)
[2024-07-06 08:06] LABS: Glucose - Point of Care 107 mg/dl (70-99)
[2024-07-06] MEDS: NOVOLOG FLEXPEN-LOW RESISTANCE SC ×2 (08:35→17:32)
[2024-07-06] MEDS: PROTONIX 40 MG PO (08:36)
[2024-07-06] MEDS: LASIX 40 MG PO ×2 (08:36→15:47)
[2024-07-06] MEDS: PACERONE 200 MG PO ×2 (08:36→20:01)
[2024-07-06] MEDS: FARXIGA 10 MG PO (08:36)
[2024-07-06] MEDS: COREG 12.5 MG PO ×2 (08:36→20:01)
[2024-07-06] MEDS: ALDACTONE 25 MG PO (08:36)
[2024-07-06] MEDS: MIRALAX PO (08:37)
[2024-07-06] MEDS: ENTRESTO 24 MG/26 MG 1 TAB PO ×2 (08:37→20:01)
[2024-07-06] MEDS: SENOKOT PO ×2 (08:37→20:01)
--- NOTE | 2024-07-06 08:45 | W.PN.CARDCBS ---
Today's Communication / Plan
-
He remains pleasantly confused with restraints and needs help with feeding.
Aspirin has been resumed. Continue to monitor H/H. Hemoglobin 8.4 on 07/06/2024.
IV heparin and aspirin were stopped following large left retroperitoneal hematoma June 30; Patient has received 10 units PRBCs. Last transfusion 06/27/2024
He has history of LV clot but is currently not candidate for anticoagulation.
Continue higher dose Lasix 40 mg p.o. twice daily for diuresis
Weight continues to come down.
Creatinine remained stable.
Patient was taking lasix 40 mg BID prior to admission
Cont GDMT including Coreg, Entresto and Farxiga and Aldactone.
ID recommending patient receive 6 weeks of IV antibiotics before even being considered for an ICD.
Could consider LifeVest however unclear if patient would tolerate this given his mental state.
He is also not currently a candidate for left heart catheterization. He would not necessarily need left heart catheterization prior to ICD placement, would discuss with EP.
Impression / Plan
-
.
PCP: Dr. Sherwood
Cardiology: Dr. Ny, last seen 06/2022
Impression:
Intraoperative PEA/ventricular fibrillation arrest 06/24/2024
Admitted with confusion and acute HFrEF 06/18/24
Tiny nonhemorrhagic acute/subacute infarct in the right periventricular white matter/centrum semiovale region by MRI 06/19/2024
Recent admission to [facility] for acute HF and foot wound 06/06/24 until 06/12/24
Hypotension
Acute HFrEF
CM EF 15% by echo at [facility] 06/07/24
h/o improved NICM EF 25% by echo 03/2018 and then improved to 40% by echo 06/2022
Nonobstructive CAD by cath 2017
Medication noncompliance
Newly diagnosed LV thrombus
1.5 x 1.2 cm LV apical clot on echo at [facility] 06/07/24
Chronic warfarin managed by [facility]
started for LV clot 06/07/24
Supratherapeutic INR on admission
Hyponatremia
GHAZAL on CKD 3a
Elevated LFTs
Chews tobacco
Unwitnessed fall 06/20/2024
tele reviewed and no arrhythmia
Hyperglycemia
Anemia
Left retroperitoneal hematoma by CT 06/30/24
Echo 05/30/2024: [facility] study, EF 15 to 20%, severe global hypokinesis and septal dyskinesis, small and organized thrombus in the LV apex measuring 1.5 x 1.2 cm, grade 3 diastolic dysfunction, at least mildly dilated RV with reduced
systolic function, mild to moderate MR, mild pericardial effusion seen posteriorly without evidence of tamponade
Echo 06/20/24 with IV echo contrast: LV ejection fraction severely reduced, 15-20% with global hypokinesis. Dilated, hypokinetic right ventricle. Biatrial dilatation. Mild MR. Mild to moderate TR. Estimated pulmonary artery systolic pressure
50-55 mmHg. Small pericardial effusion without evidence of hemodynamic compromise. No LV apical thrombus
Plan:
He remains pleasantly confused with restraints and needs help with feeding.
Aspirin has been resumed. Continue to monitor H/H. Hemoglobin 8.4 on 07/06/2024.
IV heparin and aspirin were stopped following large left retroperitoneal hematoma June 30; Patient has received 10 units PRBCs. Last transfusion 06/27/2024
He has history of LV clot but is currently not candidate for anticoagulation.
Continue higher dose Lasix 40 mg p.o. twice daily for diuresis
Weight continues to come down.
Creatinine remained stable.
Patient was taking lasix 40 mg BID prior to admission
Cont GDMT including Coreg, Entresto and Farxiga and Aldactone.
ID recommending patient receive 6 weeks of IV antibiotics before even being considered for an ICD.
Could consider LifeVest however unclear if patient would tolerate this given his mental state.
He is also not currently a candidate for left heart catheterization. He would not necessarily need left heart catheterization prior to ICD placement, would discuss with EP.
Remains in sinus rhythm.
Continue oral amiodarone
Mental status remains labile
If patient recovers neurologically and is cleared from an ID standpoint following MSSA bacteremia, he could be considered for ICD placement following intraoperative PEA/VF arrest 06/24/24. Patient had CPR with 4 shocks, magnesium IV, amiodarone 300
mg and then 150 mg and then ROSC. He then underwent TTM and was warmed on 06/26/2024.
Additional hx:
-No recurrence of ventricular arrhythmia, but he has been maintained on amiodarone 200 mg BID, he has received a 3.6 gram PO load as of 07/04/24. QTc has been stable thus far.
-Known history of an ICM and EF down to 25% in 2017, then improved to 40% with medical therapy by last echo 06/2022 followed by noncompliance for unclear reasons and EF now down to 15% by echoes starting 05/30/24.
-Patient with new LV clot by echo at [facility] 05/30/2024. Echo repeated with [facility] at 06/20/24 and no evidence of LV apical thrombus.
-Patient then had MRI brain 06/20/24 that showed a tiny nonhemorrhagic acute/subacute infarct in the right periventricular white matter/centrum semiovale region. Neurology saw the patient and felt that this may have been an incidental finding as the
patient was felt to be cognitively intact without functional decline, but had an episode of confusion with garbled speech on admission.
-When patient had LV clot identified at [facility] he was started on warfarin, warfarin was held during this admission to allow for ERCP that was performed on 06/21/2024 and patient was bridged with heparin. Heparin gtt now on hold due to
evidence of a large left-sided retroperitoneal hematoma on CT scan 06/30/2024. [facility] manages INRs that are drawn at [facility] and the goal is 2-3.
-Outpatient dose of Coreg 12.5 mg BID has been continued
-Outpatient dose of Entresto lowered to 24/26 mg twice daily and patient has been tolerating doses since 07/03/2024 PM
-Outpatient dose of spironolactone 25 mg daily has been resumed
-Outpatient dose of Farxiga 10 mg daily has been continued
Additional summary of admission thus far: Admitted with change in mental status and found to have small nonhemorrhagic right hemispheric CVA, recently hospitalized with LV thrombus and acute and chronic HFrEF with left lower extremity wound
infection. Also with choledocholithiasis, status post ERCP and sphincterotomy with stone extraction 06/21/24. Underwent debridement of left foot wound and partial first ray amputation with podiatry on 06/23/24. Then taken to the vascular OR on
06/24/24 for peripheral angiogram and possible intervention and upon induction of anesthesia had pulseless electrical activity degenerating into VF requiring ACLS and ultimately return of spontaneous circulation. Patient had TTM and was eventually
extubated, but has not recovered neurologically. Patient has also been receiving treatment for acute HFrEF during hospital stay. Patient also noted to have large left retroperitoneal hematoma by CT 06/30/2024 and has received 10 units PRBCs this
admission. Heparin gtt placed on hold 06/30/2024 and has not been resumed as of 07/04/2024. Aspirin also remains on hold
HPI: Patient came to [facility] from home yesterday with confusion and garbled speech and was admitted for acute HF and cardiology has been consulted. Patient is a poor historian and gave me permission to call his daughter. Also reviewed 67 pages of
records from recent [facility] admission. Patient had NICM diagnosed in 2018 and with GDMT his EF improved to 40% by last echo at in 06/2022. Patient then stopped coming to cardiology appts at , but reportedly did not start following elsewhere.
Patient then retired and stopped taking his medications on a regular schedule despite reminders from family. Patient started with LE wounds 02/2024 and following with wound care center and seemed to be improving. Patient then started with a cough
and saw his PCP 05/02/24 and lungs were clear and he was started on promethazine and albuterol. Patient was then admitted to [facility] with SOB 06/06/24 and during that admission was found to have EF down to 15% and he had a new LV clot and was started
on warfarin. Patient was also d/c'd to home on Coreg, Entresto and spironolactone which are meds he had been on when he was last seen in the cardiology office in 2022. Patient was diuresed with Lasix IV and d/c'd to home on Lasix 40 mg PO BID.
Patient's daughter reports that patient was not taking meds at home and when VN came to see him he had garbled speech and was sent to the ER.
Progress Note - Ginseng Farmer
Subjective
Date of Service: July 06, 2024
Patient seen and examined. Denies complaints no chest pain or shortness of breath.
Objective
Labs:
07/06/24 03:22
07/06/24 03:22
Labs
Hgb 8.4 g/dL (13.0-18.0) L 07/06/24 03:22
Hct 25.6 % (39.0-52.0) L 07/06/24 03:22
Plt Count 285 10^3/uL (130-400) 07/06/24 03:22
PT 18.8 Sec (11.4-14.6) H 06/27/24 03:27
INR 1.52 06/27/24 03:27
APTT 78.0 Sec (23.4-35.0) H 06/30/24 17:59
Sodium 141 mmol/L (135-145) 07/06/24 03:22
Potassium 4.4 mmol/L (3.5-5.1) 07/06/24 03:22
BUN 33 mg/dl (9-20) H 07/06/24 03:22
Creatinine 1.0 mg/dL (0.7-1.3) 07/06/24 03:22
Glucose 107 mg/dl (70-99) H 07/06/24 03:22
Vital Signs and I&O:
Vital Signs
Temp Pulse Resp BP Pulse Ox
97.3 F 66 16 158/78 98
07/06/24 07:25 07/06/24 05:00 07/06/24 05:00 07/06/24 04:17 07/06/24 05:00
Vital Signs
Temp Pulse Resp BP Pulse Ox
97.3 F 66 16 158/78 98
07/06/24 07:25 07/06/24 05:00 07/06/24 05:00 07/06/24 04:17 07/06/24 05:00
Intake & Output
07/04/24 07/05/24 07/06/24 07/07/24
06:59 06:59 06:59 06:59
Intake Total 240 / 240 1260 / 1260
Output Total 100 / 100 950 / 950
Balance 240 / 240 1160 / 1160 -950 / -950
Physical Exam
Physical Exam
General: No acute distress, confused but awake and alert
Neck: Negative JVD
Heart: Regular, Negative S3 positive S1/S2, Negative S4, No murmur
Lungs: CTA b/l, negative wheezes/rales/rhonchi
Abd: Positive BS, NT/ND, neg rebound/rigidity/guarding
Ext: Negative cyanosis/clubbing/edema
Neuro: nonfocal
[2024-07-06] MEDS: LANTUS 0.07 UNITS SC ×2 (08:51→21:03)
[2024-07-06 12:35] LABS: Glucose - Point of Care 162 mg/dl (70-99)
[2024-07-06] MEDS: NOVOLOG FLEXPEN-LOW RESISTANCE 1 UNITS SC (12:54)
--- NOTE | 2024-07-06 14:42 | W.PN.HOSP.TC ---
Today's Communication/Plan
-
Assessment / Plan
Assessment / Plan
Physical Exam
GEN: Calm, comfortable, no acute distress
HEENT: EOMI, MMM
LUNGS: CTA B/L without wheeze or rales
CV: Normal sinus rhythm no murmurs gallops
ABD: soft, BS+, ND, left flank ecchymosis
EXT: left foot wound dressing clean dry intact
NEURO: Awake but confused, calm, difficulty following complex commands
63M HFrEF CKD3 DM neuropathy HLD Nicotine dependence complicated hospital course with MSSA bacteremia, Left hallux gangrene, CVA suspect 2/2 cardiac emboli LV thrombus. Had partial amputation Lt Hallux Gangrene OR Podiatry 06/23. Patient was
planned for revascularization LLE 06/24 however developed PEA/Vfib arrest after anesthesia induction requiring ACLS. ROSC eventually achieved, patient was subsequently transferred to ICU intubated and requiring pressor support.
PEA/Vfib arrest following Anesthesia Induction 06/24/2024
Acute Anoxic Encephalopathy vs Delirium
-Underwent 3 rounds of ACLS and 4 defibrillations as per Cardio before ROSC was achieved
-ECHO post-code appreciated EF 10-15% no significant change from prior ECHO 06/20/24
-weaned off pressor support
-TTM completed, mental status improving but not at baseline
-Extubated 06/27, downgraded to IMU
-Brain MRI 06/29/24 noted no acute abn though limited study d/t motion defects
-He will need eventual ICD following treatment for MSSA bacteremia, cardiology does not feel he would necessarily require left heart cath prior to ICD placement but will discuss with EP
-Low-dose aspirin started 07/05
-Appreciate reevaluation by physiatry regarding acute rehabilitation
#reported hx LV thrombus
-Dx 2 weeks prior to arrival at [facility], suspect due to severely depressed LVEF
-Started on Coumadin anticoagulation 06/07/2024 for LV apical thrombus
-Coumadin on hold, had been on hep gtt for potential procedures however heparin now held due to large left-sided retroperitoneal hematoma
Left retroperitoneal hematoma:
-Large but stable on repeat imaging 07/01
-Continue holding anticoagulation
-Hemoglobin stable
Progressive/persistent Anemia
-Secondary to blood loss from procedures and retroperitoneal hematoma
-Status post transfusion 10 units so far this admission
-monitor H&H every 48 hours and transfuse as necessary Hgb<7.5
-Protonix IV 40 mg daily
# MSSA bacteremia
-Blood cultures from 06/20 positive for MSSA [correction to prior documentation], repeat cultures from 06/22 also positive
-Suspect secondary to left hallux wet gangrene, which itself is suspected due to embolic effect, status post amputation
-Antibiotics now narrowed to cefazolin 2 g IV every 8 hours, today is day 14 of antibiotics to be completed 08/02, PICC line placement when approaching DC
-Repeat transthoracic echo 06/24 notable for thickened mitral valves
-Appreciate guidance from ID and podiatry
-strict NWB and elevation LLE as per Podiatry
#Left hallux gangrene:
-Suspect secondary to embolism as also caused stroke
-wound cx pos MSSA
-Status post partial amputation in the OR with podiatry 06/23
-Planned for revascularization 06/24 which was aborted d/t PE/Vfib arrest as above
-Continue local wound care, antibiotics with cefazolin
#CVA
- Suspect secondary to cardiac emboli
� Acute/subacute infarct in the right periventricular white matter/centrum semiovale region
� Currently holding anticoagulation due to large left retroperitoneal hematoma
� Neurology consult appreciated
� Carotids unremarkable
-Now tolerating PT/OT, to be reevaluated by physiatry
-Restarted aspirin 81 mg daily
#Acute on chronic HFrEF
EF 15-20%
-Cardio eval appreciated
-Continue Lasix 40 mg p.o. twice daily
-Beta-blockade with Coreg
-Restarted Entresto and spironolactone
-Farxiga resumed
Acute urinary retention:
-Orosco discontinued
-Requiring intermittent straight catheterization
-Will monitor urine output and bladder scans
-Renal function stable
#Choledocholithiasis
-ERCP 06/21 with stone identified and removed and biliary sphincterotomy performed
-GI eval appreciated
#Transaminitis
� Secondary to choledocholithiasis, ERCP performed 06/21
� Resolving after ERCP
#GHAZAL
-Initial creat 1.6 since improved
-CKD III ruled out with resolution GHAZAL
-monitor
#DM 2/diabetic neuropathy
-Uncontrolled, hemoglobin A1c 10.8% this admission
-DM MACHINE WIPER eval appreciated
-Currently Lantus 7 units twice daily and sliding scale insulin
-Farxiga resumed
-Gabapentin 600 mg daily on hold d/t Encephalopathy as above
#Constipation
cont Miralax and Sennosides, consider Lactulose if no improvement
#Mild Hyponatremia
monitor
#HLD
-Continue statin
#Nicotine dependence
DVT prophylaxis SCDs
Full code
Anticipated Discharge: > 48 hours
Subjective/Interval History
-
Date of Service: July 06, 2024
Patient was seen and examined at bedside this morning. Continues to be awake and conversant although does not always appear to be thinking clearly. Denies any current pain.
Objective Data
-
Labs:
Laboratory Results
07/06/24
03:22
WBC 10.1
Hgb 8.4 L
Hct 25.6 L
Plt Count 285
Sodium 141
Potassium 4.4
Chloride 106
Carbon Dioxide 33 H
BUN 33 H
Creatinine 1.0
Glucose 107 H
Calcium 7.6 L
Vital Signs:
Vital Signs
Temp Pulse Resp BP Pulse Ox
97.9 F 67 18 135/109 96
07/06/24 12:29 07/06/24 13:00 07/06/24 13:00 07/06/24 12:53 07/06/24 13:09
I&O
07/05/24 07/06/24 07/07/24
06:59 06:59 06:59
Intake Total 1260 / 1260
Output Total 100 / 100 950 / 950
Balance 1160 / 1160 -950 / -950
Review of Systems
-
History Source: Patient
All other systems: Reviewed and negative
Physical Exam
-
General: No Apparent Distress
[2024-07-06 17:46] LABS: Glucose - Point of Care 127 mg/dl (70-99)
--- NOTE | 2024-07-06 18:18 | PTCARENOTE ---
pt awake most of shift, continues to have confused conversation but speech is clear. see nursing assessment. pt sat on edge of bed with PT. incontinent of bowel and bladder. bed alarm on. sinus rythym on monitor. po intake encouraged'
[2024-07-06 21:07] LABS: Glucose - Point of Care 216 mg/dl (70-99)
[2024-07-07] VITALS (13 sets, daily range): BP systolic 132–179; BP diastolic 66–104; PULSE 79; O2SAT 95; BMI 24.5
[2024-07-07] MEDS: ANCEF 10 IV ×3 (05:10→21:23)
--- NOTE | 2024-07-07 05:13 | PTCARENOTE ---
Patient desatted to 57 while asleep. 2 liters Nasal cannula placed. This is the first time patient has done this. scallop dredger provider made aware
[2024-07-07 08:17] LABS: Glucose - Point of Care 114 mg/dl (70-99)
[2024-07-07] MEDS: NOVOLOG FLEXPEN-LOW RESISTANCE SC ×2 (08:25→13:31)
[2024-07-07] MEDS: MIRALAX PO (08:26)
[2024-07-07] MEDS: SENOKOT PO ×2 (08:26→19:42)
[2024-07-07] MEDS: ENTRESTO 24 MG/26 MG 1 TAB PO ×2 (08:41→20:09)
[2024-07-07] MEDS: PROTONIX 40 MG PO (08:41)
[2024-07-07] MEDS: FARXIGA 10 MG PO (08:41)
[2024-07-07] MEDS: PACERONE 200 MG PO ×2 (08:41→20:09)
[2024-07-07] MEDS: ALDACTONE 25 MG PO (08:42)
[2024-07-07] MEDS: COREG 12.5 MG PO ×2 (08:42→20:09)
[2024-07-07] MEDS: LASIX 40 MG PO ×2 (08:42→15:59)
[2024-07-07] MEDS: LANTUS 0.07 UNITS SC ×2 (08:42→20:09)
--- NOTE | 2024-07-07 13:03 | W.PN.CARDCBS ---
Today's Communication / Plan
-
Continue oral Lasix. Weight continues to come down
Consideration for LifeVest prior to DC.
Impression / Plan
-
.
PCP: Dr. Sherwood
Cardiology: Dr. Ny, last seen 06/2022
Impression:
Intraoperative PEA/ventricular fibrillation arrest 06/24/2024
Admitted with confusion and acute HFrEF 06/18/24
Tiny nonhemorrhagic acute/subacute infarct in the right periventricular white matter/centrum semiovale region by MRI 06/19/2024
Recent admission to [facility] for acute HF and foot wound 06/06/24 until 06/12/24
Hypotension
Acute HFrEF
CM EF 15% by echo at [facility] 06/07/24
h/o improved NICM EF 25% by echo 03/2018 and then improved to 40% by echo 06/2022
Nonobstructive CAD by cath 2017
Medication noncompliance
Newly diagnosed LV thrombus
1.5 x 1.2 cm LV apical clot on echo at [facility] 06/07/24
Chronic warfarin managed by [facility]
started for LV clot 06/07/24
Supratherapeutic INR on admission
Hyponatremia
GHAZAL on CKD 3a
Elevated LFTs
Chews tobacco
Unwitnessed fall 06/20/2024
tele reviewed and no arrhythmia
Hyperglycemia
Anemia
Left retroperitoneal hematoma by CT 06/30/24
Echo 05/30/2024: [facility] study, EF 15 to 20%, severe global hypokinesis and septal dyskinesis, small and organized thrombus in the LV apex measuring 1.5 x 1.2 cm, grade 3 diastolic dysfunction, at least mildly dilated RV with reduced
systolic function, mild to moderate MR, mild pericardial effusion seen posteriorly without evidence of tamponade
Echo 06/20/24 with IV echo contrast: LV ejection fraction severely reduced, 15-20% with global hypokinesis. Dilated, hypokinetic right ventricle. Biatrial dilatation. Mild MR. Mild to moderate TR. Estimated pulmonary artery systolic pressure
50-55 mmHg. Small pericardial effusion without evidence of hemodynamic compromise. No LV apical thrombus
Plan:
He remains pleasantly confused with restraints as needed and needs help with feeding.
Aspirin has been resumed. Continue to monitor H/H. Hemoglobin 8.4 on 07/06/2024.
IV heparin and aspirin were stopped following large left retroperitoneal hematoma June 30; Patient has received 10 units PRBCs. Last transfusion 06/27/2024
He has history of LV clot but is currently not candidate for anticoagulation.
Continue Lasix 40 mg p.o. twice daily for diuresis
Weight continues to come down.
Creatinine remains stable.
Patient was taking lasix 40 mg BID prior to admission
Cont GDMT including Coreg, Entresto and Farxiga and Aldactone.
ID recommending patient receive 6 weeks of IV antibiotics before even being considered for an ICD.
Could consider LifeVest however unclear if patient would tolerate this given his mental state.
He is also not currently a candidate for left heart catheterization. He would not necessarily need left heart catheterization prior to ICD placement, would need input from EP.
Remains in sinus rhythm.
Continue oral amiodarone
Mental status remains labile
If patient recovers neurologically and is cleared from an ID standpoint following MSSA bacteremia, he could be considered for ICD placement given intraoperative PEA/VF arrest 06/24/24. Patient had CPR with 4 shocks, magnesium IV, amiodarone 300 mg
and then 150 mg and then ROSC. He then underwent TTM and was warmed on 06/26/2024.
Additional hx:
-No recurrence of ventricular arrhythmia, but he has been maintained on amiodarone 200 mg BID, he has received a 3.6 gram PO load as of 07/04/24. QTc has been stable thus far.
-Known history of an ICM and EF down to 25% in 2017, then improved to 40% with medical therapy by last echo 06/2022 followed by noncompliance for unclear reasons and EF now down to 15% by echoes starting 05/30/24.
-Patient with new LV clot by echo at [facility] 05/30/2024. Echo repeated with [facility] at 06/20/24 and no evidence of LV apical thrombus.
-Patient then had MRI brain 06/20/24 that showed a tiny nonhemorrhagic acute/subacute infarct in the right periventricular white matter/centrum semiovale region. Neurology saw the patient and felt that this may have been an incidental finding as the
patient was felt to be cognitively intact without functional decline, but had an episode of confusion with garbled speech on admission.
-When patient had LV clot identified at [facility] he was started on warfarin, warfarin was held during this admission to allow for ERCP that was performed on 06/21/2024 and patient was bridged with heparin. Heparin gtt now on hold due to
evidence of a large left-sided retroperitoneal hematoma on CT scan 06/30/2024. [facility] manages INRs that are drawn at [facility] and the goal is 2-3.
-Outpatient dose of Coreg 12.5 mg BID has been continued
-Outpatient dose of Entresto lowered to 24/26 mg twice daily and patient has been tolerating doses since 07/03/2024 PM
-Outpatient dose of spironolactone 25 mg daily has been resumed
-Outpatient dose of Farxiga 10 mg daily has been continued
Additional summary of admission thus far: Admitted with change in mental status and found to have small nonhemorrhagic right hemispheric CVA, recently hospitalized with LV thrombus and acute and chronic HFrEF with left lower extremity wound
infection. Also with choledocholithiasis, status post ERCP and sphincterotomy with stone extraction 06/21/24. Underwent debridement of left foot wound and partial first ray amputation with podiatry on 06/23/24. Then taken to the vascular OR on
06/24/24 for peripheral angiogram and possible intervention and upon induction of anesthesia had pulseless electrical activity degenerating into VF requiring ACLS and ultimately return of spontaneous circulation. Patient had TTM and was eventually
extubated, but has not recovered neurologically. Patient has also been receiving treatment for acute HFrEF during hospital stay. Patient also noted to have large left retroperitoneal hematoma by CT 06/30/2024 and has received 10 units PRBCs this
admission. Heparin gtt placed on hold 06/30/2024 and has not been resumed as of 07/04/2024. Aspirin also remains on hold
HPI: [facility] yesterday with confusion and garbled speech and was admitted for acute HF and cardiology has been consulted. Patient is a poor historian and gave me permission to call his daughter. Also reviewed 67 pages of
records from recent [facility] admission. Patient had NICM diagnosed in 2018 and with GDMT his EF improved to 40% by last echo at in 06/2022. Patient then stopped coming to cardiology appts at , but reportedly did not start following elsewhere.
Patient then retired and stopped taking his medications on a regular schedule despite reminders from family. Patient started with LE wounds 02/2024 and following with wound care center and seemed to be improving. Patient then started with a cough
and saw his PCP 05/02/24 and lungs were clear and he was started on promethazine and albuterol. Patient was then admitted to [facility] with SOB 06/06/24 and during that admission was found to have EF down to 15% and he had a new LV clot and was started
on warfarin. Patient was also d/c'd to home on Coreg, Entresto and spironolactone which are meds he had been on when he was last seen in the cardiology office in 2022. Patient was diuresed with Lasix IV and d/c'd to home on Lasix 40 mg PO BID.
Patient's daughter reports that patient was not taking meds at home and when VN came to see him he had garbled speech and was sent to the ER.
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
Subjective
Date of Service: July 07, 2024
Patient seen and examined. No chest pain or shortness of breath
Objective
Labs:
07/06/24 03:22
07/06/24 03:22
Labs
Hgb 8.4 g/dL (13.0-18.0) L 03/29/25 03:22
Hct 25.6 % (39.0-52.0) L 07/06/24 03:22
Plt Count 285 10^3/uL (130-400) 07/06/24 03:22
PT 18.8 Sec (11.4-14.6) H 06/27/24 03:27
INR 1.52 06/27/24 03:27
APTT 78.0 Sec (23.4-35.0) H 06/30/24 17:59
Sodium 141 mmol/L (135-145) 07/06/24 03:22
Potassium 4.4 mmol/L (3.5-5.1) 07/06/24 03:22
BUN 33 mg/dl (9-20) H 07/06/24 03:22
Creatinine 1.0 mg/dL (0.7-1.3) 07/06/24 03:22
Glucose 107 mg/dl (70-99) H 07/06/24 03:22
Vital Signs and I&O:
Vital Signs
Temp Pulse Resp BP Pulse Ox
98.4 F 69 13 179/98 100
07/07/24 07:54 07/07/24 07:00 07/07/24 07:00 07/07/24 06:00 07/07/24 07:00
Vital Signs
Temp Pulse Resp BP Pulse Ox
98.4 F 69 13 179/98 100
07/07/24 07:54 07/07/24 07:00 07/07/24 07:00 07/07/24 06:00 07/07/24 07:00
Intake & Output
07/05/24 07/06/24 07/07/24 07/08/24
06:59 06:59 06:59 06:59
Intake Total 1260 / 1260 960 / 960
Output Total 100 / 100 950 / 950
Balance 1160 / 1160 -950 / -950 960 / 960
Physical Exam
Physical Exam
General: No acute distress, confused but awake
Neck: Negative JVD
Heart: Regular, Negative S3 positive S1/S2, Negative S4, No murmur
Lungs: CTA b/l, negative wheezes/rales/rhonchi
Abd: Positive BS, NT/ND, neg rebound/rigidity/guarding
Ext: Negative cyanosis/clubbing/edema
Neuro: nonfocal
[2024-07-07 13:11] LABS: Glucose - Point of Care 131 mg/dl (70-99)
--- NOTE | 2024-07-07 15:48 | W.PN.HOSP.TC ---
Today's Communication/Plan
-
Assessment / Plan
Assessment / Plan
Physical Exam
GEN: Calm, comfortable, no acute distress
HEENT: EOMI, MMM
LUNGS: CTA B/L without wheeze or rales
CV: Normal sinus rhythm no murmurs gallops
ABD: soft, BS+, ND, left flank ecchymosis
EXT: left foot wound dressing clean dry intact
NEURO: Awake but confused, calm, difficulty following complex commands, disorganized thought process
63M HFrEF CKD3 DM neuropathy HLD Nicotine dependence complicated hospital course with MSSA bacteremia, Left hallux gangrene, CVA suspect 2/2 cardiac emboli LV thrombus. Had partial amputation Lt Hallux Gangrene OR Podiatry 06/23. Patient was
planned for revascularization LLE 06/24 however developed PEA/Vfib arrest after anesthesia induction requiring ACLS. ROSC eventually achieved, patient was subsequently transferred to ICU intubated and requiring pressor support.
PEA/Vfib arrest following Anesthesia Induction 06/24/2024
Acute Anoxic Encephalopathy vs Delirium
-Underwent 3 rounds of ACLS and 4 defibrillations as per Cardio before ROSC was achieved
-ECHO post-code appreciated EF 10-15% no significant change from prior ECHO 06/20/24
-weaned off pressor support
-TTM completed, mental status improving but not at baseline
-Extubated 06/27, downgraded to IMU
-Brain MRI 06/29/24 noted no acute abn though limited study d/t motion defects
-He will need eventual ICD following treatment for MSSA bacteremia, may not require left heart cath prior to ICD placement but cardiology will discuss with EP, doubt patient will be able to manage LifeVest on his own
-Low-dose aspirin started 07/05, labs every 48 hours
-Pending reevaluation by physiatry regarding acute rehabilitation
-Likely medically stable for discharge to acute rehab if that is able to be arranged
#reported hx LV thrombus
-Dx 2 weeks prior to arrival at [facility], suspect due to severely depressed LVEF
-Started on Coumadin anticoagulation 06/07/2024 for LV apical thrombus
-Coumadin on hold, had been on hep gtt for potential procedures however heparin now held due to large left-sided retroperitoneal hematoma
Left retroperitoneal hematoma:
-Large but stable on repeat imaging 07/01
-Continue holding anticoagulation
-Hemoglobin stable
Progressive/persistent Anemia
-Secondary to blood loss from procedures and retroperitoneal hematoma
-Status post transfusion 10 units so far this admission
-monitor H&H every 48 hours and transfuse as necessary Hgb<7.5
-Protonix IV 40 mg daily
# MSSA bacteremia
-Blood cultures from 06/20 positive for MSSA [correction to prior documentation], repeat cultures from 06/22 also positive
-Suspect secondary to left hallux wet gangrene, which itself is suspected due to embolic effect, status post amputation
-Antibiotics now narrowed to cefazolin 2 g IV every 8 hours, today is day 14 of antibiotics to be completed 08/02, PICC line placement when discharge plans have been clarified (hopefully to acute rehab)
-Repeat transthoracic echo 06/24 notable for thickened mitral valves
-Appreciate guidance from ID and podiatry
-strict NWB and elevation LLE as per Podiatry
#Left hallux gangrene:
-Suspect secondary to embolism as also caused stroke
-wound cx pos MSSA
-Status post partial amputation in the OR with podiatry 06/23
-Planned for revascularization 06/24 which was aborted d/t PE/Vfib arrest as above
-Continue local wound care, antibiotics with cefazolin
#CVA
- Suspect secondary to cardiac emboli
� Acute/subacute infarct in the right periventricular white matter/centrum semiovale region
� Currently holding anticoagulation due to large left retroperitoneal hematoma
� Neurology consult appreciated
� Carotids unremarkable
-Now tolerating PT/OT, to be reevaluated by physiatry
-Restarted aspirin 81 mg daily
#Acute on chronic HFrEF
EF 15-20%
-Cardio eval appreciated
-Continue Lasix 40 mg p.o. twice daily
-Beta-blockade with Coreg
-Restarted Entresto and spironolactone
-Farxiga resumed
Acute urinary retention:
-Orosco discontinued
-Requiring intermittent straight catheterization
-Will monitor urine output and bladder scans
-Renal function stable
#Choledocholithiasis
-ERCP 06/21 with stone identified and removed and biliary sphincterotomy performed
-GI eval appreciated
#Transaminitis
� Secondary to choledocholithiasis, ERCP performed 06/21
� Resolving after ERCP
#GHAZAL
-Initial creat 1.6 since improved
-CKD III ruled out with resolution GHAZAL
-monitor
#DM 2/diabetic neuropathy
-Uncontrolled, hemoglobin A1c 10.8% this admission
-DM EXECUTIVE SOUS CHEF eval appreciated
-Currently Lantus 7 units twice daily and sliding scale insulin
-Farxiga resumed
-Gabapentin 600 mg daily on hold d/t Encephalopathy as above
#Constipation
cont Miralax and Sennosides, consider Lactulose if no improvement
#Mild Hyponatremia
monitor
#HLD
-Continue statin
#Nicotine dependence
DVT prophylaxis SCDs
Full code
Anticipated Discharge: 24 - 48 hours
Subjective/Interval History
-
Date of Service: July 07, 2024
Patient was seen and examined at bedside this morning. No acute distress and no acute events overnight. Comfortable.
Objective Data
-
Vital Signs:
Vital Signs
Temp Pulse Resp BP Pulse Ox
98.4 F 68 12 146/82 97
07/07/24 11:30 07/07/24 13:06 07/07/24 13:06 07/07/24 13:06 07/07/24 13:36
I&O
07/06/24 07/07/24 07/08/24
06:59 06:59 06:59
Intake Total 960 / 960
Output Total 950 / 950
Balance -950 / -950 960 / 960
Review of Systems
-
History Source: Patient
All other systems: Reviewed and negative
Physical Exam
-
General: No Apparent Distress
[2024-07-07] MEDS: NOVOLOG FLEXPEN-LOW RESISTANCE 1 UNITS SC (17:48)
[2024-07-07 17:53] LABS: Glucose - Point of Care 171 mg/dl (70-99)
--- NOTE | 2024-07-07 18:23 | PTCARENOTE ---
see nursing assessment and flowsheet. pt continues with expressive aphasia but is more oriented today. appetite is fair. po intake encouraged. sat on edge of bed with PT.
[2024-07-07 20:20] LABS: Glucose - Point of Care 223 mg/dl (70-99)
[2024-07-08] VITALS (17 sets, daily range): BP systolic 130–166; BP diastolic 29–103; PULSE 69–71; BMI 24.1
[2024-07-08 04:49] LABS: % Basophils 0.6 % (0-2); % Eosinophils 2.8 % (0-6); % Immature Granulocytes 0.5 % (0-0.5); % Lymphocytes 9.5 % (20.5-51.1); % Monocytes 8.1 % (1.7-9.3); % Neutrophils 78.5 % (42.2-75.2); Absolute Basophils 0.1 10^3/uL (0-0.2); Absolute Eosinophils 0.2 10^3/uL (0-0.7); Absolute Lymphocytes 0.8 10^3/uL (1.2-3.4); Absolute Monocytes 0.7 10^3/uL (0.1-0.6); Absolute Neutrophils 6.4 10^3/uL (1.4-6.5); Hematocrit 29.2 % (39.0-52.0); Hemoglobin 9.6 g/dL (13.0-18.0); Mean Corp Hgb Conc. 32.9 g/dL (33.0-37.0); Mean Corpuscular Volume 91.3 fL (80.0-94.0); Mean Platelet Volume 10.3 fL (7.4-10.4); Nucleated Red Blood Cells % 0 % (-); Platelet Count 367 10^3/uL (130-400); Red Cell Dist. Width 16.5 % (11.5-14.5); White Blood Cell Count 8.1 10^3/uL (4.8-10.8)
--- NOTE | 2024-07-08 04:52 | PTCARENOTE ---
No acute events overnight. Anxious at times. Heart monitor leads placed on back due to patient constantly ripping them off.
[2024-07-08 05:13] LABS: Blood Urea Nitrogen 26 mg/dl (9-20); Calcium 8.1 mg/dl (8.4-10.2); Carbon Dioxide 30 mmol/L (22-30); Chloride 103 mmol/L (98-107); Estimated Creatinine Clearance 90 ml/min; Glucose 125 mg/dl (70-99); Potassium 4.2 mmol/L (3.5-5.1); Sodium 140 mmol/L (135-145); eGFR > 60.00
[2024-07-08] MEDS: ANCEF 10 IV ×3 (05:28→21:26)
--- NOTE | 2024-07-08 08:11 | W.PN.HOSP.TC ---
Today's Communication/Plan
-
Discharge planning
Assessment / Plan
Assessment / Plan
Gen-awake, alert, confused, NAD
HEENT-NC, AT, anicteric, clear oral mm
Neck-supple
CV-reg, no M, +S1/S2
Lungs-clear B/L
Abd-soft, NT, ND
Ext-no edema
Musculoskeletal-no cyanosis, clubbing
Skin-warm and dry
Neuro-grossly non-focal
Psych-calm, cooperative
PEA/Vfib arrest -following Anesthesia Induction 06/24/2024
Acute Anoxic Encephalopathy vs Delirium
-Underwent 3 rounds of ACLS and 4 defibrillations as per Cardio before ROSC was achieved
-ECHO post-code appreciated EF 10-15% no significant change from prior ECHO 06/20/24
-weaned off pressor support
-TTM completed, mental status improving but not at baseline
-Extubated 06/27, downgraded to IMU
-Brain MRI 06/29/24 noted no acute abn though limited study d/t motion defects
-He will need eventual ICD following treatment for MSSA bacteremia, may not require left heart cath prior to ICD placement but cardiology will discuss with EP, doubt patient will be able to manage LifeVest on his own
-Low-dose aspirin started 07/05
-Pending reevaluation by physiatry regarding acute rehabilitation
-Likely medically stable for discharge to acute rehab if that is able to be arranged
reported hx LV thrombus
-Dx 2 weeks prior to arrival at [facility], suspect due to severely depressed LVEF
-Started on Coumadin anticoagulation 06/07/2024 for LV apical thrombus
-Coumadin on hold, had been on hep gtt for potential procedures however heparin now held due to large left-sided retroperitoneal hematoma
Left retroperitoneal hematoma:
-Large but stable on repeat imaging 07/01
-Continue holding anticoagulation
-Hemoglobin stable
Acute blood loss anemia
-Secondary to blood loss from procedures and retroperitoneal hematoma
-Status post transfusion 10 units so far this admission
Hemoglobin now stable, 9.6. Last transfusion was 07/01.
MSSA bacteremia
-Blood cultures from 06/20 positive for MSSA [correction to prior documentation], repeat cultures from 06/22 also positive
-Suspect secondary to left hallux wet gangrene, which itself is suspected due to embolic effect, status post amputation
-Antibiotics now narrowed to cefazolin 2 g IV every 8 hours, antibiotics to be completed 08/02, PICC line placement when discharge plans have been clarified (hopefully to acute rehab)
-Repeat transthoracic echo 06/24 notable for thickened mitral valves
-Appreciate guidance from ID and podiatry
-strict NWB and elevation LLE as per Podiatry
Left hallux gangrene:
-Suspect secondary to embolism as also caused stroke
-wound cx pos MSSA
-Status post partial amputation in the OR with podiatry 06/23
-Planned for revascularization 06/24 which was aborted d/t PE/Vfib arrest as above
-Continue local wound care, antibiotics with cefazolin
Acute stroke - Suspect secondary to cardiac emboli
� Acute/subacute infarct in the right periventricular white matter/centrum semiovale region
� Currently holding anticoagulation due to large left retroperitoneal hematoma
� Neurology consult appreciated
� Carotids unremarkable
-Now tolerating PT/OT, to be reevaluated by physiatry
-Restarted aspirin 81 mg daily
Acute on chronic HFrEF
EF 15-20%
-Cardio eval appreciated
-Continue Lasix 40 mg p.o. twice daily
-Beta-blockade with Coreg
-Restarted Entresto and spironolactone
-Farxiga resumed
Acute urinary retention:
-Orosco discontinued
-Requiring intermittent straight catheterization
-Will monitor urine output and bladder scans
-Renal function stable
Choledocholithiasis
-ERCP 06/21 with stone identified and removed and biliary sphincterotomy performed
-GI eval appreciated
Transaminitis
� Secondary to choledocholithiasis, ERCP performed 06/21
� Resolving after ERCP
GHAZAL
-Initial creat 1.6 since improved
-CKD III ruled out with resolution GHAZAL
-monitor
DM 2/diabetic neuropathy
-Uncontrolled, hemoglobin A1c 10.8% this admission
-DM BULLDOZER ENGINEER eval appreciated
-Currently Lantus 7 units twice daily and sliding scale insulin
-Farxiga resumed
-Gabapentin 600 mg daily on hold d/t Encephalopathy as above
Constipation
cont Miralax and Sennosides, consider Lactulose if no improvement
Mild Hyponatremia
monitor
Hyperlipidemia
-Continue statin
Nicotine dependence
DVT prophylaxis SCDs
Full code
Dispo -stable for discharge to acute rehab.
Anticipated Discharge: Within 24 hours
Subjective/Interval History
-
Date of Service: July 08, 2024
Patient seen and examined. Confused, no complaints.
Objective Data
-
Labs:
Laboratory Results
07/08/24
04:07
WBC 8.1
Hgb 9.6 L
Hct 29.2 L
Plt Count 367 D
Sodium 140
Potassium 4.2
Chloride 103
Carbon Dioxide 30
BUN 26 H
Creatinine 1.0
Glucose 125 H
Calcium 8.1 L
Vital Signs:
Vital Signs
Temp Pulse Resp BP Pulse Ox
98.2 F 68 9 152/80 97
07/08/24 03:53 07/08/24 06:00 07/08/24 06:00 07/08/24 06:00 07/08/24 06:00
I&O
07/07/24 07/08/24 07/09/24
06:59 06:59 06:59
Intake Total 960 / 960 360 / 360
Output Total 650 / 650
Balance 960 / 960 -290 / -290
Review of Systems
-
History Source: Patient
All other systems: Reviewed and negative
[2024-07-08] MEDS: LASIX 40 MG PO ×2 (08:27→16:49)
[2024-07-08] MEDS: COREG 12.5 MG PO ×2 (08:27→19:36)
[2024-07-08] MEDS: ALDACTONE 25 MG PO (08:27)
[2024-07-08] MEDS: FARXIGA 10 MG PO (08:28)
[2024-07-08] MEDS: LANTUS 0.07 UNITS SC ×2 (08:28→21:27)
[2024-07-08] MEDS: PROTONIX 40 MG PO (08:28)
[2024-07-08] MEDS: PACERONE 200 MG PO (08:28)
[2024-07-08] MEDS: ENTRESTO 24 MG/26 MG 1 TAB PO ×2 (08:28→19:37)
[2024-07-08] MEDS: NOVOLOG FLEXPEN-LOW RESISTANCE SC (08:29)
[2024-07-08 08:39] LABS: Glucose - Point of Care 144 mg/dl (70-99)
--- NOTE | 2024-07-08 09:15 | W.PN.ID1 ---
Date of Service
Date of Service: July 08, 2024
Today's Communication
- Continue cefazolin 2g IV q8 (day 16 of 42 of abx, 06/22-08/02)
- recommend completing 6 weeks course of IV antibiotics with AICD placement afterwards, alternatively would consider suppression
- PICC line
- follow up with PCP, podiatry Dr Main and vascular surgery
Assessment / Plan
MSSA Bacteremia
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
PEA/v fib arrest 06/24
Large left retroperitoneal hematoma with blood-loss anemia
CVA
Encephalopathy - resolving
Dm2; uncontrolled
Choledocholithiasis s/p ERCP with 06/21 - resolved
- 06/21 and 06/22 blood cultures finalized negative
- Toe swab cx MSSA. Toe amp path: viable margin with focal osteomyelitis
- outpatient would tighten blood glucose control
- Continue cefazolin 2g IV q8 (day 16 of 42 of abx, 06/22-08/02)
- recommend completing 6 weeks course of IV antibiotics with AICD placement afterwards, alternatively would consider suppression
- PICC line
- follow up with PCP, podiatry Dr Main and vascular surgery
����������������������������������������������������������
Chief Complaint
-: Other (mssa bacteremia, possible endocarditis)
Subjective / Review of Systems
remains afebrile
bp stable
alert today, conversant
Vital Signs / Physical Exam
Vital Signs
Vital Signs
Temp Pulse Resp BP Pulse Ox
98.2 F 68 9 152/80 97
07/08/24 03:53 07/08/24 06:00 07/08/24 06:00 07/08/24 06:00 07/08/24 06:00
Physical Exam
Constitutional: No Acute Distress
Cardiovascular: Regular Rate and S1/S2; Negative Murmur or Rub
Pulmonary: Clear and Symmetric; Negative Wheezes or Rales
Gastrointestinal: Soft, Non Tender, Non Distended and Normal Bowel Sounds
Skin: Warm and Dry; Negative Rash or Jaundice
Objective Data
Lab Data
Lab Results
07/08/24 04:07
07/08/24 04:07
PT 18.8 Sec (11.4-14.6) H 06/27/24 03:27
INR 1.52 06/27/24 03:27
APTT 78.0 Sec (23.4-35.0) H 06/30/24 17:59
Estimated Creat Clear 90 ml/min 07/08/24 04:07
Lactic Acid 1.0 mmol/L (0.7-2.0) 06/26/24 08:48
Total Bilirubin 2.8 mg/dl (0.2-1.3) H 07/05/24 03:24
AST 52 U/L (17-59) 07/05/24 03:24
ALT 13 U/L (0-50) 07/05/24 03:24
Alkaline Phosphatase 150 U/L (38-126) H 07/05/24 03:24
Most recent labs reviewed.
Micro Results:
06/22/24 13:23 Blood Culture - Final
Blood/Venous No Growth - Final Report
06/21/24 09:33 Blood Culture - Final
Blood/Venous No Growth - Final Report
06/22/24 14:36 Wound Culture - Final
Abscess S aureus-Methicillin Sensitive
Gram Stain - Final
06/20/24 00:42 Blood Culture - Final
Blood/Venous S aureus-Methicillin Sensitive
Gram Stain - Final
06/20/24 01:59 Blood Culture - Final
Blood/Venous S aureus-Methicillin Sensitive
Gram Stain - Final
06/18/24 16:51 Urine Culture - Final
Urine NO GROWTH
03/11/25 16:11 Influenza Types A & B (HUBER) - Final
Nasal Swab Negative for Influenza A & B, NAAT
Negative results must be combined with clinical observations
and patient history.
Nucleic Acid Amplification test (NAAT)performed on the
[employer] platform.
Imaging:
06/24/2024 ECHO (TTE): Normal LV chamber size. Severely reduced LV systolic function with EF approximately 10 to 15%. Severe global hypokinesis. Mitral valve opens normally, but is noted to have thickened leaflets and mitral annular calcification.
Mild mitral regurgitation. Please see full dictation for additional detail.
06/30/24 Brain MRI: No clear MRI evidence for an acute intracranial abnormality within the significant limitations of extensive motion artifact during this exam.
--- NOTE | 2024-07-08 10:38 | W.PN.CARDCBS ---
Addendum entered and electronically signed by Damien Norman, DO 07/08/24 17:25:
.
Discussed with vascular and IC. Will start IV heparin and continue ASA and if he tolerates this may consider left heart cath in next 24-48 hrs.
Addendum entered and electronically signed by Damien Norman, DO 07/08/24 13:34:
I saw and examined the patient.
The [employer]'s note was reviewed and I agree with the note.
Comment:
Plan:
interested in LifeVest. He will continue with this until he can be evaluated for ICD.
He will need to be considered for eventual LHC as an outpatient prior to ICD unless this is not required by EP
Would consider anticoagulation if ok with vascular for hx LV thrombus.
Continues to be pleasantly confused most of the time
Hemoglobin remains stable at 9.6 on 07/08/2024 following a total of 10 units PRBCs this admission for large left-sided retroperitoneal hematoma, last transfusion was 07/01/2024 AM
Aspirin resumed July 08, 2024.
Transition amiodarone to 200 mg daily.
Continue Lasix 40 mg p.o. twice daily for diuresis
Weight continues to come down.
Creatinine remains stable.
Patient was taking lasix 40 mg BID prior to admission
Cont GDMT including Coreg, Entresto and Farxiga and Aldactone.
ID recommending patient receive 6 weeks of IV antibiotics before even being considered for an ICD.
Could consider LifeVest however unclear if patient would tolerate this given his mental state.
If patient recovers neurologically and is cleared from an ID standpoint following MSSA bacteremia, he could be considered for ICD placement given intraoperative PEA/VF arrest 06/24/24. Patient had CPR with 4 shocks, magnesium IV, amiodarone 300 mg
and then 150 mg and then ROSC. He then underwent TTM and was warmed on 06/26/2024.
Additional hx:
-Known history of an ICM and EF down to 25% in 2017, then improved to 40% with medical therapy by last echo 06/2022 followed by noncompliance for unclear reasons and EF now down to 15% by echoes starting 05/30/24.
-Patient with new LV clot by echo at [facility] 05/30/2024. Echo repeated with Lumason at 06/20/24 and no evidence of LV apical thrombus.
-Patient then had MRI brain 06/20/24 that showed a tiny nonhemorrhagic acute/subacute infarct in the right periventricular white matter/centrum semiovale region. Neurology saw the patient and felt that this may have been an incidental finding as the
patient was felt to be cognitively intact without functional decline, but had an episode of confusion with garbled speech on admission.
-When patient had LV clot identified at [facility] he was started on warfarin, warfarin was held during this admission to allow for ERCP that was performed on 06/21/2024 and patient was bridged with heparin. Heparin gtt now on hold due to
evidence of a large left-sided retroperitoneal hematoma on CT scan 06/30/2024. [facility] manages INRs that are drawn at [facility] and the goal is 2-3.
-Outpatient dose of Coreg 12.5 mg BID has been continued
-Outpatient dose of Entresto lowered to 24/26 mg twice daily and patient has been tolerating doses since 07/03/2024 PM
-Outpatient dose of spironolactone 25 mg daily has been resumed
-Outpatient dose of Farxiga 10 mg daily has been continued
Original Note:
Today's Communication / Plan
-
Talked with and family wants Life Vest while awaiting blood cultures to stay clear before AICD can be placed
Impression / Plan
-
PCP: Dr. Sherwood
Cardiology: Dr. Ny, last seen 06/2022
Impression:
Intraoperative PEA/ventricular fibrillation arrest 06/24/2024
Admitted with confusion and acute HFrEF 06/18/24
Tiny nonhemorrhagic acute/subacute infarct in the right periventricular white matter/centrum semiovale region by MRI 06/19/2024
Recent admission to [facility] for acute HF and foot wound 06/06/24 until 06/12/24
Hypotension
Acute HFrEF
CM EF 15% by echo at [facility] 06/07/24
h/o improved NICM EF 25% by echo 03/2018 and then improved to 40% by echo 06/2022
Nonobstructive CAD by cath 2017
Medication noncompliance
Newly diagnosed LV thrombus
1.5 x 1.2 cm LV apical clot on echo at [facility] 06/07/24
Chronic warfarin managed by [facility]
started for LV clot 06/07/24
Supratherapeutic INR on admission
Hyponatremia
GHAZAL on CKD 3a
Elevated LFTs
Chews tobacco
Unwitnessed fall 06/20/2024
tele reviewed and no arrhythmia
Hyperglycemia
Anemia
Left retroperitoneal hematoma by CT 06/30/24
Echo 05/30/2024: [facility] [address] study, EF 15 to 20%, severe global hypokinesis and septal dyskinesis, small and organized thrombus in the LV apex measuring 1.5 x 1.2 cm, grade 3 diastolic dysfunction, at least mildly dilated RV with reduced
systolic function, mild to moderate MR, mild pericardial effusion seen posteriorly without evidence of tamponade
Echo 06/20/24 with IV echo contrast: LV ejection fraction severely reduced, 15-20% with global hypokinesis. Dilated, hypokinetic right ventricle. Biatrial dilatation. Mild MR. Mild to moderate TR. Estimated pulmonary artery systolic pressure
50-55 mmHg. Small pericardial effusion without evidence of hemodynamic compromise. No LV apical thrombus
Plan:
-Talked with patient's , Sara, by phone for 14:34 min and reviewed admission thus far and plans for Life Vest. Patient is a full code and wants Life Vest therapy. We discussed Life Vest at [facility] and then to continue at home until blood
cultures have cleared and patient is ready for AICD. Family feels they can handle patient with Life Vest at home. This was relayed to correctional case records supervisor and hospitalist attending as well.
-Continues to be pleasantly confused most of the time
-Hgb stable at 9.6 on 07/08/2024 following a total of 10 units PRBCs this admission for large left-sided retroperitoneal hematoma, last transfusion was 07/01/2024 AM
-Heparin gtt and aspirin remain on hold. Will restart her aspirin 81 mg daily on 07/08/2024, ordered by me
-Patient is not a candidate for C at this time due to inability to tolerate aspirin and possibly even Plavix and warfarin given history of LV clot.
-AICD due to intraoperative PEA/VF arrest 06/24/24 once cleared from an ID standpoint following MSSA bacteremia. Patient had been given propofol and fentanyl and had undergone vascular access, but no other instrumentation at the time of his event.
Patient had CPR with 4 shocks, magnesium IV, amiodarone 300 mg and then 150 mg and then ROSC. He then underwent TTM and was warmed on 06/26/2024.
-No recurrence of ventricular arrhythmia, but he has been maintained on amiodarone 200 mg BID, he has received a 5.2 gram PO load as of 07/08/24. QTc was 450 ms by ECG 07/03/2024, repeat ECG in AM, ordered by me.
-Known history of an ICM and EF down to 25% in 2017, then improved to 40% with medical therapy by last echo 06/2022 followed by noncompliance for unclear reasons and EF now down to 15% by echoes starting 05/30/24.
-Patient with new LV clot by echo at [facility] 05/30/2024. Echo repeated with Lumason at 06/20/24 and no evidence of LV apical thrombus.
-Patient then had MRI brain 06/20/24 that showed a tiny nonhemorrhagic acute/subacute infarct in the right periventricular white matter/centrum semiovale region. Neurology saw the patient and felt that this may have been an incidental finding as the
patient was felt to be cognitively intact without functional decline, but had an episode of confusion with garbled speech on admission.
-When patient had LV clot identified at [facility] he was started on warfarin, warfarin was held during this admission to allow for ERCP that was performed on 06/21/2024 and patient was bridged with heparin. Heparin gtt now on hold due to
evidence of a large left-sided retroperitoneal hematoma on CT scan 06/30/2024. [facility] manages INRs that are drawn at [facility] and the goal is 2-3.
-Weight is down 3 lbs overnight following increase of Lasix to 40 mg BID on 07/03/2024. Patient was taking 40 mg BID prior to admission
-Outpatient dose of Coreg 12.5 mg BID has been continued
-Outpatient dose of Entresto lowered to 24/26 mg twice daily and patient has been tolerating doses since 07/03/2024 PM
-Outpatient dose of spironolactone 25 mg daily has been continued
-Outpatient dose of Farxiga 10 mg daily has been continued
Additional summary of admission thus far: Admitted with change in mental status and found to have small nonhemorrhagic right hemispheric CVA, recently hospitalized with LV thrombus and acute and chronic HFrEF with left lower extremity wound
infection. Also with choledocholithiasis, status post ERCP and sphincterotomy with stone extraction 06/21/24. Underwent debridement of left foot wound and partial first ray amputation with podiatry on 06/23/24. Then taken to the vascular OR on
06/24/24 for peripheral angiogram and possible intervention and upon induction of anesthesia had pulseless electrical activity degenerating into VF requiring ACLS and ultimately return of spontaneous circulation. Patient had TTM and was eventually
extubated, but has not recovered neurologically. Patient has also been receiving treatment for acute HFrEF during hospital stay. Patient also noted to have large left retroperitoneal hematoma by CT 06/30/2024 and has received 10 units PRBCs this
admission. Heparin gtt placed on hold 06/30/2024 and has not been resumed as of 07/04/2024. Aspirin restarted 07/08/24. Family agreeable to Life Vest after talking with 07/08/24 and they're looking into [facility] for rehab.
HPI: Patient came to [facility] from home yesterday with confusion and garbled speech and was admitted for acute HF and cardiology has been consulted. Patient is a poor historian and gave me permission to call his daughter. Also reviewed 67 pages of
records from recent [facility] admission. Patient had NICM diagnosed in 2018 and with GDMT his EF improved to 40% by last echo at in 06/2022. Patient then stopped coming to cardiology appts at , but reportedly did not start following elsewhere.
Patient then retired and stopped taking his medications on a regular schedule despite reminders from family. Patient started with LE wounds 02/2024 and following with wound care center and seemed to be improving. Patient then started with a cough
and saw his PCP 05/02/24 and lungs were clear and he was started on promethazine and albuterol. Patient was then admitted to [facility] with SOB 06/06/24 and during that admission was found to have EF down to 15% and he had a new LV clot and was started
on warfarin. Patient was also d/c'd to home on Coreg, Entresto and spironolactone which are meds he had been on when he was last seen in the cardiology office in 2022. Patient was diuresed with Lasix IV and d/c'd to home on Lasix 40 mg PO BID.
Patient's daughter reports that patient was not taking meds at home and when VN came to see him he had garbled speech and was sent to the ER.
Progress Note - Coloring Checker
Subjective
Date of Service: July 08, 2024
No pain, he says he's at [facility]
Objective
Labs:
07/08/24 04:07
07/08/24 04:07
Labs
Hgb 9.6 g/dL (13.0-18.0) L 07/08/24 04:07
Hct 29.2 % (39.0-52.0) L 07/08/24 04:07
Plt Count 367 10^3/uL (130-400) D 07/08/24 04:07
PT 18.8 Sec (11.4-14.6) H 06/27/24 03:27
INR 1.52 06/27/24 03:27
APTT 78.0 Sec (23.4-35.0) H 06/30/24 17:59
Sodium 140 mmol/L (135-145) 07/08/24 04:07
Potassium 4.2 mmol/L (3.5-5.1) 07/08/24 04:07
BUN 26 mg/dl (9-20) H 07/08/24 04:07
Creatinine 1.0 mg/dL (0.7-1.3) 07/08/24 04:07
Glucose 125 mg/dl (70-99) H 07/08/24 04:07
Vital Signs and I&O:
Vital Signs
Temp Pulse Resp BP Pulse Ox
98.2 F 68 9 152/80 97
07/08/24 03:53 07/08/24 06:00 07/08/24 06:00 07/08/24 06:00 07/08/24 06:00
Vital Signs
Temp Pulse Resp BP Pulse Ox
98.2 F 68 9 152/80 97
07/08/24 03:53 07/08/24 06:00 07/08/24 06:00 07/08/24 06:00 07/08/24 06:00
Intake & Output
07/06/24 07/07/24 07/08/24 07/09/24
06:59 06:59 06:59 06:59
Intake Total 960 / 960 360 / 360
Output Total 950 / 950 650 / 650
Balance -950 / -950 960 / 960 -290 / -290
Physical Exam
Physical Exam
GEN: NAD. Awake, alert and pleasant
HEENT: MMM
LUNGS: RA. No audible wheeze
CV: SR with PVCs on tele.
ABD: ND
EXT: No edema.
SKIN: No rash
--- NOTE | 2024-07-08 10:41 | PN.DE.MGMTRT ---
Insulin Management
- -
07/08/2024: Diabetes Management Follow up
63 year old male who presented to ER on 06/18/24 with report of AMS changes, of staring, garbled speech, confusion, and balance difficulty lasting an unclear amount of time. Of note, pt was recently admitted at [facility] for LV thrombus
and HFrEF (on Coumadin).
PMH: NICM, mild MR, HTN, Hypercholesterolemia Renal insufficiency, RLE Cellulitis, nicotine use and IDDM. Prior to admission was taking Levemir 20 units BID, Humalog 5 units AC and Farxiga 10mg daily prior to admission. A1C 10.8%.
Pt was also noted for a chronic nonhealing left foot wound as well as a more acute gangrenous left hallux and associated foot infection. He underwent a partial first ray resection on 06/23.
OR 06/24/24 for RLE percutaneous revascularization. Upon anesthesia induction patient PEA/Vfib arrested and underwent ACLS until ROSC was achieved and procedure was aborted.
Patient awake, in bed, restless, offers no complaints, unable to interview.
Information obtained from chart review. Cr 1, eGFR >60 today.
Speech eval on 07/02, recommend minced moist diet, patient consuming ~ 50% of meal.
Glucose range 07/07 114 to 171, pt receiving Lantus 7 units BID with low corrective insulin AC and Farxiga 10 mg daily.
FBG this AM is 125 V, 144 POC. Will make no chnages to current regimen: Lantus 7 units BID, low corrective insulin and Farxiga 10 mg daily.
Discussed with nurse.
Will cont to follow.
Diabetes History
- -
Type of Diabetes: 2 requiring insulin
Pre-Admission Diabetes Regimen
07/08/24
04:07
Creatinine 1.0
Lab Results
Hemoglobin A1c 10.8 % (4.0-5.6) H 06/19/24 05:43
Insulin Pump Settings
IP Diabetes Regimen
07/07/24 07/07/24 07/07/24
12:58 17:42 20:08
Glucose
POC Glucose 131 H 171 H 223 H
07/08/24 07/08/24
04:07 08:28
Glucose 125 H
POC Glucose 144 H
Meal type: Lunch
Meal type: Breakfast
Amount consumed: 40%
Amount consumed: 50%
Patient Education
[2024-07-08] MEDS: LOW STRENGTH ASPIRIN 81 MG PO (12:11)
[2024-07-08] MEDS: MIRALAX 17 GRAMS PO (12:31)
[2024-07-08] MEDS: SENOKOT PO (12:32)
[2024-07-08] MEDS: TYLENOL 1000 MG PO ×2 (12:32→19:37)
[2024-07-08 13:11] LABS: Glucose - Point of Care 248 mg/dl (70-99)
--- NOTE | 2024-07-08 15:34 | W.PN.NEURO.1 ---
Today's Communication / Plan
-
.
Neuro Assessment/Plan
Assessment
Patient previously evaluated for underlying cognitive dysfunction, experiencing severe anoxic injury 1 day ago
Prognosis is favorable and that the patient's initial CT of the head did not demonstrate cerebral edema or anoxic injury. The prognosis is also made more favorable by the patient having daily improved cognitive function
Plan
Continue supportive care
Will follow as needed
Subjective/Objective
Subjective Data
Date of Service: July 08, 2024
Neurology follow-up note
HPI: This is a 63-year-old man with history of LV thrombus who presented to [facility] on 06/18/2024 with encephalopathy and garbled speech and was found to have supratherapeutic INR and an acute right parietal subcortical infarct.
Hospital course was complicated by PEA/VFib arrest on 06/24/2024 as well as MSSA bacteremia, L great toe wet gangrene s/p left hallux amputation and anemia from large left retroperitoneal and bilateral psoas hematomas.
Neurology reevaluation was requested to for an evaluation and management of right leg weakness.
According to patient's Mr. Sanchez has had difficulty lifting his right leg when getting out of a car requiring him to use his arms to lift the right thigh up. She is unable to specify the timing of the symptoms onset however does state that at
that time the patient also complained about the right hip pain. According to EMR patient was ambulating with crutches since discharge from [facility] on 06/12/2024.
On 06/19/2024 patient was observed to ambulate with a rolling walker. On 07/07/2024 Mr. Sanchez was noted to have heavy posterior lean.
Mr. Sanchez is unable to provide a history.
Brain MRI without jo (06/29/2024) showed no evidence of additional acute abnormalities.
EKG: NSR, QTc Int : 450 ms
PDMP:Zolpidem Tartrate 10 Mg 90 tabs filled in on 04/09/2024, 11/20/2023, 09/08/2023
Labs: Hemoglobin A1c�10.8, normal vitamin B12, TSH.
Brain MRI without jo (06/19/2024)�acute right parietal subcortical infarct, chronic lacunar infarcts of the bilateral cerebellar hemispheres and thalami.
Carotid Doppler ultrasound�no hemodynamically significant stenosis.
LS spine MRI wo jo(04/08/2022) Large right paracentral disc extrusion at L5-S1 with 2.2 cm of superior migration causes severe right lateral recess stenosis and likely impinges upon both the descending right L5 and S1 nerve roots.
PMH:CHF, CM/LV thrombus 06/06/24, PAD, HTN, DLP, DM/neuropathy, CKD, nephrolithiasis, insomnia, medication nonadherence
PSH: L4-L5 laminectomy (02/11/2021), penile implant, L vitreous replacement, amputation left great toe (06/23/2024), L lower extremity angiogram, ERCP(06/21/24)
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
FH: sister�brain cancer
All:NKDA
ROS: limited due to encephalopathy
General: Well developed. In no acute distress.
Cardio: Regular rate and rhythm.
Neuro:
Mental Status: Alert, oriented to person, name. Did not know his age, current year, president. Poor attention and comprehension. Fluctuating mood. Mildly disinhibited. No hemineglect.
Cranial Nerves: OS-surgical. EOMI. BTT on the R. No ptosis. No nystagmus. Face symmetric. Moderate dysarthria.
Motor: R IO atrophy. UE-antigravity. R hip flexion weakness(at least 3/5).R DF full. L distal weakness exam is limited due to post amputation bandages/wound/pain. Limited exam due to encephalopathy.
Reflexes: 0+ throughout the upper extremities and knees.
Sensory: unable due to encephalopathy
Coordination: No tremors or myoclonic movements
Gait: deferred
Assessment and Plan:
I. Worsening of chronic R proximal monoparesis. Deferential diagnosis includes preexisting myopathy with/wo superimposed R lumbosacral plexopathy from the R psoas hematoma. Less likely acute infarct due to the timing of the symptoms onset.
II. Encephalopathy(hypoxic, infectious, metabolic)
III. Chronic polyneuropathy, likely metabolic
IV. Subacute embolic subcortial parietal stroke. Likely etiology-LA thrombus.
-Fall and aspiration precautions
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
-Continue PT
-Restart systemic anticoagulation when feasible
-Continue aspirin 81 mg once a day
-DVT prophylaxis
-Case was discussed with patient's
I personally reviewed all radiology and labs along with past medical records pertinent to current medical problems. Total time spent in patient care is 60 minutes.
Thank you for allowing us to participate in the care of this patient. Please do not hesitate to contact us with any questions or concerns.
Objective Data
Vital Signs
Temp Pulse Resp BP Pulse Ox
36.6 C 68 9 152/80 97
07/08/24 11:30 07/08/24 06:00 07/08/24 06:00 07/08/24 06:00 07/08/24 06:00
Lab Results
07/08/24 04:07
07/08/24 04:07
PT 18.8 Sec (11.4-14.6) H 06/27/24 03:27
INR 1.52 06/27/24 03:27
APTT 78.0 Sec (23.4-35.0) H 06/30/24 17:59
Sodium 140 mmol/L (135-145) 07/08/24 04:07
Potassium 4.2 mmol/L (3.5-5.1) 07/08/24 04:07
BUN 26 mg/dl (9-20) H 07/08/24 04:07
Glucose 125 mg/dl (70-99) H 07/08/24 04:07
Calcium 8.1 mg/dl (8.4-10.2) L 07/08/24 04:07
Phosphorus 3.3 mg/dl (2.5-4.5) 07/02/24 05:03
Dyu-A-Yxoljdjbquj Pept 42743 pg/ml 06/24/24 11:02
Vitamin B12 884 pg/ml (239-931) 06/18/24 16:12
Patient Allergies
No Known Allergies Allergy (Verified 06/18/24 16:01)
Vital Signs and Labs
-
Vital Signs and Labs:
Vital Signs
Temp Pulse Resp BP Pulse Ox
36.6 C 68 9 152/80 97
07/08/24 11:30 07/08/24 06:00 07/08/24 06:00 07/08/24 06:00 07/08/24 06:00
Lab Results
07/08/24 04:07
07/08/24 04:07
PT 18.8 Sec (11.4-14.6) H 06/27/24 03:27
INR 1.52 06/27/24 03:27
APTT 78.0 Sec (23.4-35.0) H 06/30/24 17:59
Sodium 140 mmol/L (135-145) 07/08/24 04:07
Potassium 4.2 mmol/L (3.5-5.1) 07/08/24 04:07
BUN 26 mg/dl (9-20) H 07/08/24 04:07
Glucose 125 mg/dl (70-99) H 07/08/24 04:07
Calcium 8.1 mg/dl (8.4-10.2) L 07/08/24 04:07
Phosphorus 3.3 mg/dl (2.5-4.5) 07/02/24 05:03
Jxh-T-Xapkvjkvrxw Pept 62457 pg/ml 06/24/24 11:02
Vitamin B12 884 pg/ml (940-566) 06/18/24 16:12
Medications
-
Medications:
Generic Name Dose Route Start Last Admin
Trade Name Freq PRN Reason Stop Dose Admin
Acetaminophen 1,000 mg 07/01/24 19:04 07/08/24 12:32
Acetaminophen 500 Mg Tablet PO 07/29/24 19:03 1,000 mg
Q6HPRN PRN Administration
pain/OROPEZA/temp> 100.4F
Amiodarone HCl 200 mg 07/09/24 08:00
Amiodarone 200 Mg Tablet PO 08/06/24 07:59
DAILY KARISSA
Artificial Tears 1 drops 06/28/24 15:42
Artificial Tears Pf (Refresh) 10 Drop Droperette OPHTH 07/26/24 15:41
QIDPRN PRN
DRY EYES
Aspirin 81 mg 07/08/24 11:00 07/08/24 12:11
Aspirin 81 Mg Chewable Tablet PO 08/05/24 10:59 81 mg
DAILY KARISSA Administration
Carvedilol 12.5 mg 07/01/24 20:00 07/08/24 08:27
Carvedilol 12.5 Mg Tablet PO 07/29/24 19:59 12.5 mg
BID KARISSA Administration
Dapagliflozin 10 mg 07/02/24 08:00 07/08/24 08:28
Dapagliflozin (Farxiga) 10 Mg Tablet PO 07/30/24 07:59 10 mg
DAILY KARISSA Administration
Dextrose 12.5 grams 06/24/24 12:39 06/29/24 05:41
Dextrose 50% (0.5 Grams/Ml) 50 Ml Syringe IV 07/22/24 12:38 12.5 grams
[id number] PRN Administration
Blood Glucose < 70
Furosemide 40 mg 07/03/24 16:00 07/08/24 08:27
Furosemide 40 Mg Tablet PO 07/31/24 15:59 40 mg
BID AT 0800,1600 KARISSA Administration
Hydromorphone HCl 0.5 mg 06/27/24 18:10 07/02/24 17:01
Hydromorphone 0.5 Mg/0.5 Ml Syringe IV 07/11/24 17:42 0.5 mg
Q4HPRN PRN Administration
severe breakthrough pain
Cefazolin Sodium 2 grams in 10 mls @ 120 mls/hr 07/01/24 14:00 07/08/24 05:28
Ancef IV 07/31/24 06:04 10 mls
Q8H KARISSA Administration
Insulin Glargine 7 units/ 0.07 mls @ 0 mls/hr 07/05/24 08:00 07/08/24 08:28
Device SC 08/02/24 07:59 0.07 mls
BID@0800,2200 KARISSA Administration
As Directed
Insulin Aspart 0 units 07/04/24 11:30 07/08/24 08:29
Insulin Aspart Low Resistance 300 Units/3 Ml Pen.Injctr SC 08/01/24 11:29 Not Given
AC KARISSA
Protocol
Pantoprazole Sodium 40 mg 07/03/24 08:00 07/08/24 08:28
Pantoprazole 40 Mg Delayed Release Tablet PO 07/31/24 07:59 40 mg
DAILY KARISSA Administration
Polyethylene Glycol 17 grams 07/02/24 08:00 07/08/24 12:31
Polyethylene Glycol Powder 17 Grams Packet PO 07/30/24 07:59 17 grams
DAILY KARISSA Administration
Sacubitril/Valsartan 1 tab 07/03/24 20:00 07/08/24 08:28
Sacubitril 24 Mg/Valsartan 26 Mg (Entresto) Tab PO 07/31/24 19:59 1 tab
BID KARISSA Administration
Sennosides 17.2 mg 07/01/24 20:00 07/08/24 12:32
Sennosides (Senokot) 8.6 Mg Tablet PO 07/29/24 19:59 Not Given
BID KARISSA
Sodium Chloride 0 flush 06/18/24 23:00 06/22/24 15:38
Sodium Chloride 0.9% (Flush) Syringe IV 07/16/24 22:59 1 flush
PER PROTOCOL KARISSA Administration
Spironolactone 25 mg 07/05/24 13:00 07/08/24 08:27
Spironolactone 25 Mg Tablet PO 08/02/24 12:59 25 mg
DAILY KARISSA Administration
Home Medications
-
Home Medications
aspirin 81 mg tablet,delayed release 81 mg PO DAILY Heart disease 07/06/09
zolpidem 10 mg tablet 10 mg PO HS Sleep 04/22/19
furosemide 40 mg tablet 40 mg PO BID Fluid retention/Swelling 05/19/19
gabapentin 600 mg tablet (Neurontin) 600 mg PO HS Neurological Condition 07/09/20
carvedilol 12.5 mg tablet 12.5 mg PO BID Heart Failure ##30 07/14/20
albuterol sulfate 90 mcg/actuation aerosol inhaler 2 puff inhalation R Q6HPRN PRN sob 06/18/24
atorvastatin 80 mg tablet 80 mg PO DAILY High Cholesterol 06/18/24
dapagliflozin propanediol 10 mg tablet (Farxiga) 10 mg PO DAILY Heart Disease/Condition 06/18/24
hydralazine 25 mg tablet 25 mg PO TID Blood Pressure 06/18/24
insulin detemir U-100 100 unit/mL (3 mL) subcutaneous pen (Levemir FlexTouch U-100 Insulin) 20 unit SC BID@0800,1700 Diabetes 06/18/24
insulin lispro 100 unit/mL subcutaneous pen (Humalog KwikPen (U-100) Insulin) 5 unit SC AC Diabetes 06/18/24
magnesium oxide 400 mg PO BID Electrolyte Repletion 06/18/24
sacubitril 97 mg-valsartan 103 mg tablet (Entresto) 1 tab PO BID Heart Disease/Condition 06/18/24
spironolactone 25 mg tablet 25 mg PO QPM Heart Disease/Condition 06/18/24
warfarin 7.5 mg tablet 5 mg PO QPM Blood Clot Prevention/Tx 06/18/24
[2024-07-08] MEDS: NOVOLOG FLEXPEN-LOW RESISTANCE 2 UNITS SC (16:48)
--- NOTE | 2024-07-08 17:00 | PTCARENOTE ---
Patient confused. Oriented to self and family members. He keeps saying 'where is my car, I need to get to [facility]'. Fall risk, patient had fall in the hospital. Right great toe amputated, dressing C/D/I. Patient in room at
bedside and update provided.
[2024-07-08 17:37] LABS: Glucose - Point of Care 262 mg/dl (70-99)
--- NOTE | 2024-07-08 18:34 | PTCARENOTE ---
Right s/l placed, waiting for xray to confirm placement. PTT obtained waiting for results for baseline ptt for heparin drip.
[2024-07-08] MEDS: NOVOLOG FLEXPEN-LOW RESISTANCE 3 UNITS SC (18:36)
[2024-07-08 18:46] LABS: APTT 28.6 Sec (23.4-35.0)
[2024-07-08] MEDS: SENOKOT 17.2 MG PO (19:36)
[2024-07-08] MEDS: HEPARIN 25000 UNITS/250 ML IV (19:37)
[2024-07-08 21:39] LABS: Glucose - Point of Care 215 mg/dl (70-99)
[2024-07-09] VITALS (17 sets, daily range): BP systolic 137–177; BP diastolic 45–117; PULSE 76; BMI 23.7
--- NOTE | 2024-07-09 02:33 | PTCARENOTE ---
Heparin gtt initially hung through L midline. CXR confirmed placement of R PICC. Pt continues with restlessness, frequently pulling at wires and leads. Cardiac leads replaced several times. Incontinence and hygiene care performed several times. Pt
pulled out L midline with heparin gtt running. Site assessed by VAT, dressed. Heparin gtt moved to R PICC. See worklist for titrations. Call dillard within reach. Bed alarm in place for pt safety.
[2024-07-09] MEDS: ANCEF 10 IV ×3 (05:41→21:07)
--- NOTE | 2024-07-09 08:16 | W.PN.HOSP.TC ---
Today's Communication/Plan
-
Continue current care
Assessment / Plan
Assessment / Plan
Gen-awake, alert, confused, NAD
HEENT-NC, AT, anicteric, clear oral mm
Neck-supple
CV-reg, no M, +S1/S2
Lungs-clear B/L
Abd-soft, NT, ND
Ext-no edema
Musculoskeletal-no cyanosis, clubbing
Skin-warm and dry
Neuro-severe right proximal hip weakness, unable to bend the right knee
Psych-calm, cooperative
PEA/Vfib arrest -following Anesthesia Induction 06/24/2024
Acute Anoxic Encephalopathy vs Delirium -reportedly confusion is slowly improving but I have no comparison as this is my first week with this patient.
-Underwent 3 rounds of ACLS and 4 defibrillations as per Cardio before ROSC was achieved
-ECHO post-code appreciated EF 10-15% no significant change from prior ECHO 06/20/24
-weaned off pressor support
-TTM completed, mental status improving but not at baseline
-Extubated 06/27, downgraded to IMU
-Brain MRI 06/29/24 noted no acute abn though limited study d/t motion defects
-Cardiology plans on Life[facility]est prior to discharge. Eventual ICD after completion of IV antibiotics per ID recommendations.
-Low-dose aspirin started 07/05
-Pending reevaluation by physiatry regarding acute rehabilitation
reported hx LV thrombus
-Dx 2 weeks prior to arrival at [facility], suspect due to severely depressed LVEF
-Started on Coumadin anticoagulation 06/07/2024 for LV apical thrombus
-Now on IV heparin per cardiology.
Left retroperitoneal hematoma:
-Large but stable on repeat imaging 07/01
-Continue holding anticoagulation
-Hemoglobin stable
Acute blood loss anemia
-Secondary to blood loss from procedures and retroperitoneal hematoma
-Status post transfusion 10 units so far this admission
Hemoglobin now stable, 9.6. Last transfusion was 07/01.
MSSA bacteremia
-Blood cultures from 06/20 positive for MSSA [correction to prior documentation], repeat cultures from 06/22 also positive
-Suspect secondary to left hallux wet gangrene, which itself is suspected due to embolic effect, status post amputation
-Antibiotics now narrowed to cefazolin 2 g IV every 8 hours, antibiotics to be completed 08/02, PICC line placement when discharge plans have been clarified (hopefully to acute rehab)
-Repeat transthoracic echo 06/24 notable for thickened mitral valves
-Appreciate guidance from ID and podiatry
-strict NWB and elevation LLE as per Podiatry
Right lower extremity weakness -likely acute on chronic but unclear. Appreciate neurology input. Differential diagnosis includes pre-existing myopathy and/or superimposed right lumbosacral plexopathy due to right psoas hematoma. Previous CT scan
from July 01 demonstrates intramuscular hematomas in the right psoas and iliacus muscles.
Left hallux gangrene:
-Suspect secondary to embolism as also caused stroke
-wound cx pos MSSA
-Status post partial amputation in the OR with podiatry 06/23
-Planned for revascularization 06/24 which was aborted d/t PE/Vfib arrest as above
-Continue local wound care, antibiotics with cefazolin
Vascular surgery planning on angiogram and revascularization, timing to be determined.
Acute stroke - Suspect secondary to cardiac emboli
� Acute/subacute infarct in the right periventricular white matter/centrum semiovale region
� Currently holding anticoagulation due to large left retroperitoneal hematoma
� Neurology consult appreciated
� Carotids unremarkable
-Now tolerating PT/OT, to be reevaluated by physiatry
-Restarted aspirin 81 mg daily
Acute on chronic HFrEF
EF 15-20%
-Cardio eval appreciated
-Continue Lasix 40 mg p.o. twice daily
-Beta-blockade with Coreg
-Restarted Entresto and spironolactone
-Farxiga resumed
Acute urinary retention:
-Orosco discontinued
-Requiring intermittent straight catheterization
-Will monitor urine output and bladder scans
-Renal function stable
Choledocholithiasis
-ERCP 06/21 with stone identified and removed and biliary sphincterotomy performed
-GI eval appreciated
Transaminitis
� Secondary to choledocholithiasis, ERCP performed 06/21
� Resolving after ERCP
GHAZAL
-Initial creat 1.6 since improved
-CKD III ruled out with resolution GHAZAL
-monitor
DM 2/diabetic neuropathy
-Uncontrolled, hemoglobin A1c 10.8% this admission
-DM SUPERVISOR TYPE DISK QUALITY CONTROL eval appreciated
-Currently Lantus 7 units twice daily and sliding scale insulin
-Farxiga resumed
-Gabapentin 600 mg daily on hold d/t Encephalopathy as above
Constipation
cont Miralax and Sennosides, consider Lactulose if no improvement
Mild Hyponatremia
monitor
Hyperlipidemia
-Continue statin
Nicotine dependence
DVT prophylaxis SCDs
Full code
Dispo -eventual discharge to acute rehab once cleared by cardiology and vascular surgery.
Anticipated Discharge: > 48 hours
Subjective/Interval History
-
Date of Service: July 09, 2024
Patient seen and examined. No complaints. Relatively confused.
Objective Data
-
Labs:
Laboratory Results
07/09/24 07/09/24 07/09/24
01:44 08:04 08:20
WBC Pending
Hgb Pending
Hct Pending
Plt Count Pending
APTT 53.0 H Pending
Vital Signs:
Vital Signs
Temp Pulse Resp BP Pulse Ox
98.1 F 63 14 150/77 97
07/09/24 05:14 07/09/24 06:09 07/09/24 06:09 07/09/24 06:09 07/09/24 03:43
I&O
07/08/24 07/09/24 07/10/24
06:59 06:59 06:59
Intake Total 360 / 360 480 / 480
Output Total 650 / 650 150 / 150
Balance -290 / -290 330 / 330
Review of Systems
-
Unable to obtain full review of systems at this time due to: Acuity
History Source: Patient
All other systems: Reviewed and negative
[2024-07-09 08:37] LABS: Glucose - Point of Care 169 mg/dl (70-99)
--- NOTE | 2024-07-09 09:18 | PN.DE.MGMTRT ---
Insulin Management
- -
07/09/2024: Diabetes Management Follow up
63 year old male who presented to ER on 06/18/24 with report of AMS changes, of staring, garbled speech, confusion, and balance difficulty lasting an unclear amount of time. Of note, pt was recently admitted at [facility] for LV thrombus
and HFrEF (on Coumadin).
PMH: NICM, mild MR, HTN, Hypercholesterolemia Renal insufficiency, RLE Cellulitis, nicotine use and IDDM. Prior to admission was taking Levemir 20 units BID, Humalog 5 units AC and Farxiga 10mg daily prior to admission. A1C 10.8%.
Pt was also noted for a chronic nonhealing left foot wound as well as a more acute gangrenous left hallux and associated foot infection. He underwent a partial first ray resection on 06/23.
OR 06/24/24 for RLE percutaneous revascularization. Upon anesthesia induction patient PEA/Vfib arrested and underwent ACLS until ROSC was achieved and procedure was aborted.
Patient awake, in bed, restless, offers no complaints, unable to interview. Patient NPO for cardiac cath.
Information obtained from chart review and patients nurse. Cr 1, eGFR >60 today.
Speech eval on 07/02, recommend minced moist diet, patient consuming ~ 50% of meal.
Glucose range 07/08 147 to 262, pt receiving Lantus 7 units BID with low corrective insulin AC and Farxiga 10 mg daily.
FBG this AM is 169. Will increase from Lantus 7 units BID to 8 units, low corrective insulin and Farxiga 10 mg daily. (Home dose was levemir 20 units BID)
Lantus to be given late as order was changed, one time order placed for now dose.
Discussed with nurse.
Will cont to follow.
Diabetes History
- -
Type of Diabetes: 2 requiring insulin
Pre-Admission Diabetes Regimen
Lab Results
Hemoglobin A1c 10.8 % (4.0-5.6) H 06/19/24 05:43
Insulin Pump Settings
IP Diabetes Regimen
07/08/24 07/08/24 07/08/24
13:00 17:12 21:28
POC Glucose 248 H 262 H 215 H
07/09/24
08:26
POC Glucose 169 H
Meal type: Lunch
Amount consumed: 50%
Patient Education
--- NOTE | 2024-07-09 09:24 | W.PN.ID1 ---
Date of Service
Date of Service: July 09, 2024
Today's Communication
pulled out L midline, still has right PICC
continue cefazolin
Assessment / Plan
MSSA Bacteremia
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
PEA/v fib arrest 06/24
Large left retroperitoneal hematoma with blood-loss anemia
CVA
Encephalopathy - resolving
Dm2; uncontrolled
Choledocholithiasis s/p ERCP with 06/21 - resolved
- 06/21 and 06/22 blood cultures finalized negative
- Toe swab cx MSSA. Toe amp path: viable margin with focal osteomyelitis
- outpatient would tighten blood glucose control
- Continue cefazolin 2g IV q8 (day 17 of 42 of abx, 06/22-08/02)
- recommend completing 6 weeks course of IV antibiotics with AICD placement afterwards, alternatively would consider suppression
- PICC line
- follow up with PCP, podiatry Dr Main and vascular surgery
����������������������������������������������������������
Chief Complaint
-: Other (mssa bacteremia, possible endocarditis)
Subjective / Review of Systems
afebrile
bp stable
pulled out L midline, also had R PICC which remains in place
Vital Signs / Physical Exam
Vital Signs
Vital Signs
Temp Pulse Resp BP Pulse Ox
98.1 F 63 14 150/77 97
07/09/24 05:14 07/09/24 06:09 07/09/24 06:09 07/09/24 06:09 07/09/24 03:43
Physical Exam
Constitutional: No Acute Distress and Chronically Ill
Cardiovascular: Regular Rate and S1/S2; Negative Murmur or Rub
Pulmonary: Clear and Symmetric; Negative Wheezes or Rales
Gastrointestinal: Soft, Non Tender, Non Distended and Normal Bowel Sounds
Skin: Warm and Dry; Negative Rash or Jaundice
Objective Data
Lab Data
Lab Results
07/08/24 04:07
PT 18.8 Sec (11.4-14.6) H 06/27/24 03:27
INR 1.52 06/27/24 03:27
APTT 53.0 Sec (23.4-35.0) H 07/09/24 01:44
Estimated Creat Clear 90 ml/min 07/08/24 04:07
Lactic Acid 1.0 mmol/L (0.7-2.0) 06/26/24 08:48
Total Bilirubin 2.8 mg/dl (0.2-1.3) H 07/05/24 03:24
AST 52 U/L (17-59) 07/05/24 03:24
ALT 13 U/L (0-50) 07/05/24 03:24
Alkaline Phosphatase 150 U/L (38-126) H 07/05/24 03:24
Most recent labs reviewed.
Micro Results:
06/22/24 13:23 Blood Culture - Final
Blood/Venous No Growth - Final Report
06/21/24 09:33 Blood Culture - Final
Blood/Venous No Growth - Final Report
06/22/24 14:36 Wound Culture - Final
Abscess S aureus-Methicillin Sensitive
Gram Stain - Final
06/20/24 00:42 Blood Culture - Final
Blood/Venous S aureus-Methicillin Sensitive
Gram Stain - Final
06/20/24 01:59 Blood Culture - Final
Blood/Venous S aureus-Methicillin Sensitive
Gram Stain - Final
06/18/24 16:51 Urine Culture - Final
Urine NO GROWTH
06/18/24 16:11 Influenza Types A & B (HUBER) - Final
Nasal Swab Negative for Influenza A & B, NAAT
Negative results must be combined with clinical observations
and patient history.
Nucleic Acid Amplification test (NAAT)performed on the
[employer] NOW platform.
Imaging:
06/24/2024 ECHO (TTE): Normal LV chamber size. Severely reduced LV systolic function with EF approximately 10 to 15%. Severe global hypokinesis. Mitral valve opens normally, but is noted to have thickened leaflets and mitral annular calcification.
Mild mitral regurgitation. Please see full dictation for additional detail.
06/30/24 Brain MRI: No clear MRI evidence for an acute intracranial abnormality within the significant limitations of extensive motion artifact during this exam.
[2024-07-09] MEDS: PROTONIX 40 MG PO (10:48)
[2024-07-09] MEDS: LASIX 40 MG PO ×2 (10:48→16:51)
[2024-07-09] MEDS: ALDACTONE 25 MG PO (10:48)
[2024-07-09] MEDS: NOVOLOG FLEXPEN-LOW RESISTANCE 1 UNITS SC ×2 (10:48→18:18)
[2024-07-09] MEDS: PACERONE 200 MG PO (10:49)
[2024-07-09] MEDS: MIRALAX 17 GRAMS PO (10:49)
[2024-07-09] MEDS: ENTRESTO 24 MG/26 MG 1 TAB PO (10:49)
[2024-07-09] MEDS: FARXIGA 10 MG PO (10:49)
[2024-07-09] MEDS: COREG 12.5 MG PO ×2 (10:49→19:40)
[2024-07-09] MEDS: LOW STRENGTH ASPIRIN 81 MG PO (10:49)
[2024-07-09] MEDS: SENOKOT PO ×2 (10:50→19:35)
[2024-07-09 10:54] LABS: % Basophils 0.9 % (0-2); % Eosinophils 4.8 % (0-6); % Immature Granulocytes 0.6 % (0-0.5); % Lymphocytes 9.4 % (20.5-51.1); % Neutrophils 77.3 % (42.2-75.2); Absolute Basophils 0.1 10^3/uL (0-0.2); Absolute Eosinophils 0.3 10^3/uL (0-0.7); Absolute Lymphocytes 0.7 10^3/uL (1.2-3.4); Absolute Monocytes 0.5 10^3/uL (0.1-0.6); Absolute Neutrophils 5.3 10^3/uL (1.4-6.5); Hematocrit 30.9 % (39.0-52.0); Hemoglobin 10.1 g/dL (13.0-18.0); Mean Corp Hgb Conc. 32.7 g/dL (33.0-37.0); Mean Corpuscular Hgb 29.9 pg (27.0-31.0); Mean Corpuscular Volume 91.4 fL (80.0-94.0); Mean Platelet Volume 9.8 fL (7.4-10.4); Nucleated Red Blood Cells % 0 % (-); Platelet Count 392 10^3/uL (130-400); Red Blood Cell Count 3.38 10^6/uL (4.70-6.10); Red Cell Dist. Width 16.8 % (11.5-14.5); White Blood Cell Count 6.9 10^3/uL (4.8-10.8)
[2024-07-09 11:09] LABS: APTT 36.3 Sec (23.4-35.0)
[2024-07-09] MEDS: LANTUS 0.07 UNITS SC (11:19)
--- NOTE | 2024-07-09 11:21 | W.PN.UPDATE ---
Documented by User: Jeimy Shah DO, Resident 07/09/24 14:04
Update Note
Progress Note Update
Subjective:
HPI:
06/29 brain MRI showed no significant abnormalities. 06/30 CT abd/pelvis remarkable for a large left retroperitoneal hematoma, so heparin and ASA were held. 07/01 meropenem was narrowed to cefazolin. 6 more units of pRBCs were transfused for anemia. L
midline pulled 07/09. +R hip weakness, -sensory deficit, -numbness, - paresthesias
ROS: 12-point ROS performed and negative except as noted in HPI.
Objective:
Vitals: BP 150/77, HR 63, RR 14, T 98.1F, spO2 97%
Physical:
HEENT:
Cardiovascular: RRR, no mrg appreciated
Pulmonary: clear vesicular breath sounds b/l, equal chest expansion
Abdomen: normal bowel sounds, no tenderness, rebounding. R bill-calderón sign
Extremities: warm to touch, no edema, no cyanosis
Musculoskeletal: no edema
b/l UE 5/5 strength
R hip flexors 0/5 strength
L hip flexors 3/5 strength
Neuro: CN II-XII intact. 2+ L brachioradialis, b/l patellar, b/l achilles reflexes
Assessment:
Left retroperitoneal hematoma
CVA
HFrEF (EF 10-15%)
CAD
PAD
HTN
HLD
IDDM
CKD stage 3a
LV thrombus 06/06 - 06/12/2024 at [facility]
Normocytic anemia
Plan:
- recommend additional abdominal imaging, either CT or US, to evaluate for possible active bleeding in R retroperitoneum
- continue assistance with all transfers
- if considering discharge with lifevest, ensure pt understanding of use. A lifevest will limit which acute rehab facilities this pt is able to be accepted at.
- dvt ppx heparin

Documented by User: Alexandre Napoles MD 07/10/24 00:05
Update Note
Progress Note Update
Progress Note
Subjective:
HPI:
06/29 brain MRI showed no significant abnormalities. 06/30 CT abd/pelvis remarkable for a large left retroperitoneal hematoma, so heparin and ASA were held. 07/01 meropenem was narrowed to cefazolin. 6 more units of pRBCs were transfused for anemia. L
midline pulled 07/09. +R hip weakness, -sensory deficit, -numbness, - paresthesias
ROS: 12-point ROS performed and negative except as noted in HPI.
Objective:
Vitals: BP 150/77, HR 63, RR 14, T 98.1F, spO2 97%
Physical:
General Appearance/Observation: Well-developed, well-nourished male in no apparent distress.
Pain/Comfort Assessment: Denies
Mood/Affect: Appropriate
Eyes: Conjunctiva/Lids: normal ��� Pupils: left pupil larger then right, both reactive
ENT: oral mucosa moist,� throat clear.������������� Lips/Teeth/Gums: normal
Cardiovascular: RRR, s1/s2, no murmur appreciated
Pulmonary: clear breath sounds b/l, equal chest expansion
Abdomen: normal bowel sounds, no tenderness, rebounding. R bill-calderón sign
Extremities: warm to touch, no edema, no cyanosis
Musculoskeletal: no edema
b/l UE 5/5 strength
R hip flexors 0/5 strength, R knee extensor 1/5 strength
L hip flexors 3/5 strength
B/L ankles 5/5
Sensation to light touch intact in both legs including femoral distribution.
Neuro: CN III-XII intact. 2+ L brachioradialis, b/l patellar, b/l Achilles reflexes
Assessment:
Left retroperitoneal hematoma
Right hip and knee weakness
CVA
HFrEF (EF 10-15%)
CAD
PAD
HTN
HLD
IDDM
CKD stage 3a
LV thrombus 06/06 - 06/12/2024 at [facility]
Normocytic anemia
63yo M pmh HFrEF (EF 10-15%), CAD, HTN, HLD, IDDM, CKD stage 3a admitted for confusion with concern for TIA, hypervolemic hyponatremia secondary to CHF exacerbation and GHAZAL on CDK3, choledocholithiasis s/p antibiotics and ERCP w a biliary
sphincterotomy and biliary tree sweep, bacteremia with MSSA, wet gangrene of left hallux with infection s/p 06/23 left partial first ray amputation and multi plantar incisional debridement, cardiac arrest with polymorphic ventricular tachycardia and
vfib, acute respiratory failure requiring intubation, significant anemia requiring multiple PRBCs, delirium with concern of anoxia following resuscitation with left retroperitoneal hematoma and possible right retroperitoneal hematoma with femoral
neuropathy.
Plan:
PM&R: PT/OT to increase independence with ADLs, improve balance, coordination, endurance, strength, mobility, community reintegration, decreased burden of care on others and family education.
Right hip and knee extensor weakness: recommend additional abdominal imaging, either CT or US, to evaluate for possible active bleeding in R retroperitoneum (possible intervention with active bleed) which could be causing a femoral neuropathy.
Denies sensory concerns, has bruising over right flank, multiple transfusions.
Cognitive dysfunction: Improved, could have been some anoxia following cardiac resuscitation. Brain MRI negative.
PEA cardiac arrest: Has severe heart failure with the risk of sudden cardiac with low ejection fraction. To consider LifeVest versus implantable defibrillator.
- if considering discharge with lifevest, ensure pt is able to use appropriately. A lifevest will limit which acute rehab facilities this pt is able to be accepted at.
Severe nonischemic cardiomyopathy with LV thrombus: EF 10-15% management per cardiology, consider LifeVest or implantable defibrillator, Farxiga
RLL Aspiration pneumonia vs Pneumonitis: Cefazolin
HTN: Monitor blood pressure adjust medications
HLD: Statin
Foot gangrene with PVD, s/p Left Partial Ray amputation on 06/23: Management per podiatry, surgical shoe if recommended by podiatry.
DM II: Accu-Cheks, insulin sliding scale, aspart, lantus.
Anemia: Required numerous transfusions, likely multifactorial. Continue to monitor. Consider stool occult.
Skin: monitor for pressure sores/rashes/lesions.
Pain: acetaminophen as needed.
Bowel: miralax
Bladder: Monitor urine output
GI Prophylaxis: Pantoprazole
DVT Prophylaxis: Mechanical and heparin.
Pulmonary: Incentive spirometry
Safety: Continue to reinforce assistance with all transfers.
Code Status: Full code
Dispo (date/plan/equipment needs): Home with family care. Social history reviewed.
Functional and Medical Goals: Modified Independent with ADL�s, ambulation, transfers
Discharge destination: Acute inpatient rehabilitation that takes Lifevest.
A total of 50 minutes were spent with the patient preparing for the evaluation, obtaining history, performing examination and evaluation, counseling, data review, case management, care coordination, recorder gravity prospecting, and EMR documentation.
SUMMARY:
-Right hip and knee extensor weakness: recommend additional abdominal imaging, either CT or US, to evaluate for possible active bleeding in R retroperitoneum (possible intervention with active bleed) which could be causing a femoral neuropathy.
-Cognitive dysfunction: Improved, could have been some anoxia following cardiac resuscitation.
-PEA cardiac arrest: if considering discharge with lifevest, ensure pt is able to use appropriately. A lifevest will limit which acute rehab facilities this pt is able to be accepted at.
-Foot gangrene with PVD, s/p Left Partial Ray amputation on 06/23: surgical shoe if recommended by podiatry.
-Anemia: Consider stool occult, could be from retroperitoneal hematomas.
Discharge destinationn: Acute inpatient rehabilitation that takes Lifevest.
[2024-07-09 12:25] LABS: Glucose - Point of Care 124 mg/dl (70-99)
[2024-07-09] MEDS: NOVOLOG FLEXPEN-LOW RESISTANCE SC (12:34)
--- NOTE | 2024-07-09 14:09 | PTCARENOTE ---
Patient was kept NPO for possible label folder today. Patient is now not going until tomorrow mid morning. Heparin drip at 1400 mls/hr. Next PTT 1800.
--- NOTE | 2024-07-09 14:26 | W.PN.CARDCBS ---
Today's Communication / Plan
-
RECOMMENDATIONS
-Increase Entresto to higher dose
-NPO after breakfast tomorrow 07/10
-Continue heparin and aspirin
-Trend H/H
Impression / Plan
-
PCP: Dr. Sherwood
Cardiology: Dr. Ny, last seen 06/2022
Impression:
Intraoperative PEA/ventricular fibrillation arrest 06/24/2024
Admitted with confusion and acute HFrEF 06/18/24
Tiny nonhemorrhagic acute/subacute infarct in the right periventricular white matter/centrum semiovale region by MRI 06/19/2024
Recent admission to [facility] for acute HF and foot wound 06/06/24 until 06/12/24
Hypotension
Acute HFrEF
CM EF 15% by echo at [facility] 06/07/24
h/o improved NICM EF 25% by echo 03/2018 and then improved to 40% by echo 06/2022
Nonobstructive CAD by cath 2017
Medication noncompliance
Newly diagnosed LV thrombus
1.5 x 1.2 cm LV apical clot on echo at [facility] 06/07/24
Chronic warfarin managed by [facility]
started for LV clot 06/07/24
Supratherapeutic INR on admission
Hyponatremia
GHAZAL on CKD 3a
Elevated LFTs
Chews tobacco
Unwitnessed fall 06/20/2024
tele reviewed and no arrhythmia
Hyperglycemia
Anemia
Left retroperitoneal hematoma by CT 06/30/24
Echo 05/30/2024: [facility] study, EF 15 to 20%, severe global hypokinesis and septal dyskinesis, small and organized thrombus in the LV apex measuring 1.5 x 1.2 cm, grade 3 diastolic dysfunction, at least mildly dilated RV with reduced
systolic function, mild to moderate MR, mild pericardial effusion seen posteriorly without evidence of tamponade
Echo 06/20/24 with IV echo contrast: LV ejection fraction severely reduced, 15-20% with global hypokinesis. Dilated, hypokinetic right ventricle. Biatrial dilatation. Mild MR. Mild to moderate TR. Estimated pulmonary artery systolic pressure
50-55 mmHg. Small pericardial effusion without evidence of hemodynamic compromise. No LV apical thrombus
Plan:
-Spoke with patient and his . He has been on heparin and aspirin with stable H/H
-Will plan on coronary angiography on 07/10. Good radial pulse
-NPO after breakfast tomorrow. Lite breakfast
-Continue aspirin
-Family is wondering if Farxiga could be contributing to confusion. Hold tomorrows dose given planned catheterization and conscious sedation
-Blood pressures remain quite high: Will increase Entresto back to higher dose
-Further management decisions to be based on results of cath
Additional summary of admission thus far: Admitted with change in mental status and found to have small nonhemorrhagic right hemispheric CVA, recently hospitalized with LV thrombus and acute and chronic HFrEF with left lower extremity wound
infection. Also with choledocholithiasis, status post ERCP and sphincterotomy with stone extraction 06/21/24. Underwent debridement of left foot wound and partial first ray amputation with podiatry on 06/23/24. Then taken to the vascular OR on
06/24/24 for peripheral angiogram and possible intervention and upon induction of anesthesia had pulseless electrical activity degenerating into VF requiring ACLS and ultimately return of spontaneous circulation. Patient had TTM and was eventually
extubated, but has not recovered neurologically. Patient has also been receiving treatment for acute HFrEF during hospital stay. Patient also noted to have large left retroperitoneal hematoma by CT 06/30/2024 and has received 10 units PRBCs this
admission. Heparin gtt placed on hold 06/30/2024 and has not been resumed as of 07/04/2024. Aspirin restarted 07/08/24. Family agreeable to Life Vest after talking with 07/08/24 and they're looking into [place] at for rehab.
HPI: Patient came to [facility] from home yesterday with confusion and garbled speech and was admitted for acute HF and cardiology has been consulted. Patient is a poor historian and gave me permission to call his daughter. Also reviewed 67 pages of
records from recent [facility] admission. Patient had NICM diagnosed in 2018 and with GDMT his EF improved to 40% by last echo at in 06/2022. Patient then stopped coming to cardiology appts at , but reportedly did not start following elsewhere.
Patient then retired and stopped taking his medications on a regular schedule despite reminders from family. Patient started with LE wounds 02/2024 and following with wound care center and seemed to be improving. Patient then started with a cough
and saw his PCP 05/02/24 and lungs were clear and he was started on promethazine and albuterol. Patient was then admitted to [facility] with SOB 06/06/24 and during that admission was found to have EF down to 15% and he had a new LV clot and was started
on warfarin. Patient was also d/c'd to home on Coreg, Entresto and spironolactone which are meds he had been on when he was last seen in the cardiology office in 2022. Patient was diuresed with Lasix IV and d/c'd to home on Lasix 40 mg PO BID.
Patient's daughter reports that patient was not taking meds at home and when VN came to see him he had garbled speech and was sent to the ER.
Progress Note - Stripper Color
Subjective
Date of Service: July 09, 2024
He is feeling well and without complaints
Total Time Spent with Patient (in minutes): 32
Objective
Labs:
07/09/24 10:38
07/08/24 04:07
Labs
Hgb 10.1 g/dL (13.0-18.0) L 07/09/24 10:38
Hct 30.9 % (39.0-52.0) L 07/09/24 10:38
Plt Count 392 10^3/uL (130-400) 07/09/24 10:38
PT 18.8 Sec (11.4-14.6) H 06/27/24 03:27
INR 1.52 06/27/24 03:27
APTT 36.3 Sec (23.4-35.0) H 07/09/24 10:38
Sodium 140 mmol/L (135-145) 07/08/24 04:07
Potassium 4.2 mmol/L (3.5-5.1) 07/08/24 04:07
BUN 26 mg/dl (9-20) H 07/08/24 04:07
Creatinine 1.0 mg/dL (0.7-1.3) 07/08/24 04:07
Glucose 125 mg/dl (70-99) H 07/08/24 04:07
Vital Signs and I&O:
Vital Signs
Temp Pulse Resp BP Pulse Ox
97.3 F 68 13 172/99 95
07/09/24 11:35 07/09/24 12:00 07/09/24 12:00 07/09/24 10:24 07/09/24 14:18
Vital Signs
Temp Pulse Resp BP Pulse Ox
97.3 F 68 13 172/99 95
07/09/24 11:35 07/09/24 12:00 07/09/24 12:00 07/09/24 10:24 07/09/24 14:18
Intake & Output
07/06/24 07/07/24 07/08/24 07/09/24
23:59 23:59 23:59 23:59
Intake Total 960 / 960 360 / 360 480 / 480
Output Total 650 / 650 150 / 150
Balance 960 / 960 -290 / -290 330 / 330
Physical Exam
Physical Exam
GEN: AAO x 3. Lying in bed in NAD
LUNGS: Clear anteriorly and laterally. No wheezing or rhonchi
CV: Regular rate and rhythm. Normal S1/S2.
ABD : Soft, NT, ND, Bowel sounds are present.
EXT: Left foot is wrapped
[2024-07-09] MEDS: TYLENOL 1000 MG PO (15:14)
--- NOTE | 2024-07-09 15:32 | CM ---
Patient with Dx PEA/Vfib arrest, Left retroperitoneal hematoma s/p transfusions, Acute stroke, HF, Left hallux gangrene s/p partial amputation, Choledocholithiasis ERCP. Room air. Dysphagia diet. Receiving IV Abx, Heparin gtt. Per nurse
assessment; confused. PT recommends ACUTE VS SNF. OT recommends acute rehab. Plan cardiac cath tomorrow.
Physiatry Consult 06/28; discharge destination TBD.
Physiatry Update 07/09; recommend additional imaging, needs AR with Lifevest.
Spoke with [facility]; they are considering this patient however have no available bed at present. He will need a Lifevest in place.
Per Sara, patient's ; she is in agreement with [facility] at [place]. She is aware that he will need a Lifevest and she can help with that at home as needed. says patient was more alert and interactive today.
Plan probable [facility] [place] when medically ready.
[2024-07-09] MEDS: HEPARIN 25000 UNITS/250 ML IV (16:51)
[2024-07-09 17:43] LABS: Glucose - Point of Care 179 mg/dl (70-99)
[2024-07-09 19:05] LABS: APTT 32.3 Sec (23.4-35.0)
[2024-07-09] MEDS: ENTRESTO 49 MG/51 MG 1 TAB PO (19:40)
[2024-07-09] MEDS: LANTUS 0.08 UNITS SC (21:38)
[2024-07-09 21:50] LABS: Glucose - Point of Care 190 mg/dl (70-99)
--- NOTE | 2024-07-09 22:35 | PTCARENOTE ---
Pt attempted to get OOB, sat at end of bed but unable to hold himself up. This RN and assisting RNs found pt struggling and repositioned pt back to bed. Pt continues with confusion, anxiety. Pt reports feeling of urgency to go somewhere, but unable
to articulate what he needs. Incontinence and hygiene care performed several times. Full bed linen change x2. Distraction attempted to alleviate restlessness. Bed alarm in place for pt safety. Heparin gtt remains in place through R PICC.
[2024-07-10] VITALS (35 sets, daily range): BP systolic 114–162; BP diastolic 61–122; BMI 22.8
[2024-07-10 01:45] LABS: APTT 67.8 Sec (23.4-35.0)
[2024-07-10] MEDS: ANCEF 10 IV ×3 (05:16→21:56)
[2024-07-10 05:37] LABS: Hematocrit 30.4 % (39.0-52.0); Hemoglobin 9.9 g/dL (13.0-18.0); Mean Corp Hgb Conc. 32.6 g/dL (33.0-37.0); Mean Corpuscular Hgb 29.4 pg (27.0-31.0); Mean Corpuscular Volume 90.2 fL (80.0-94.0); Mean Platelet Volume 9.9 fL (7.4-10.4); Platelet Count 379 10^3/uL (130-400); Red Blood Cell Count 3.37 10^6/uL (4.70-6.10); Red Cell Dist. Width 16.9 % (11.5-14.5); White Blood Cell Count 7.2 10^3/uL (4.8-10.8)
--- NOTE | 2024-07-10 07:24 | PN.DE.MGMTRT ---
Insulin Management
- -
07/10/2024: Diabetes Management Follow up
63 year old male who presented to ER on 06/18/24 with report of AMS changes, of staring, garbled speech, confusion, and balance difficulty lasting an unclear amount of time. Of note, pt was recently admitted at [facility] for LV thrombus
and HFrEF (on Coumadin).
PMH: NICM, mild MR, HTN, Hypercholesterolemia Renal insufficiency, RLE Cellulitis, nicotine use and IDDM. Prior to admission was taking Levemir 20 units BID, Humalog 5 units AC and Farxiga 10mg daily prior to admission. A1C 10.8%.
Pt was also noted for a chronic nonhealing left foot wound as well as a more acute gangrenous left hallux and associated foot infection. He underwent a partial first ray resection on 06/23.
OR 06/24/24 for RLE percutaneous revascularization. Upon anesthesia induction patient PEA/Vfib arrested and underwent ACLS until ROSC was achieved and procedure was aborted.
Patient awake, in bed, restless, offers no complaints, unable to interview. Patient NPO after breakfast for cardiac cath 07/10.
Information obtained from chart review and patients nurse. Cr 1, eGFR >60 today.
Speech eval on 07/02, recommend minced moist diet, patient consuming ~ 50% of meal.
Glucose range 07/09 124 to 190, pt receiving Lantus 7 units BID with low corrective insulin AC and Farxiga 10 mg daily.
07/10 FBG this AM is 118. Lantus increased to 8 units BID, first dose @ hs 07/09, with low corrective insulin and Farxiga 10 mg daily. (Home dose was levemir 20 units BID)
Discussed with nurse.
Will cont to follow.
Diabetes History
- -
Type of Diabetes: 2 requiring insulin
Pre-Admission Diabetes Regimen
Lab Results
Hemoglobin A1c 10.8 % (4.0-5.6) H 06/19/24 05:43
Insulin Pump Settings
IP Diabetes Regimen
07/09/24 07/09/24 07/09/24
08:26 12:14 17:31
POC Glucose 169 H 124 H 179 H
07/09/24
21:38
POC Glucose 190 H
Meal type: Dinner
Meal type: Lunch
Meal type: Breakfast
Amount consumed: 50%
Patient Education
[2024-07-10 08:21] LABS: Glucose - Point of Care 118 mg/dl (70-99)
--- NOTE | 2024-07-10 08:27 | W.PN.HOSP.TC ---
Today's Communication/Plan
-
Repeat CT abdomen/pelvis angiogram
Assessment / Plan
Assessment / Plan
Gen-awake, alert, confused, NAD
HEENT-NC, AT, anicteric, clear oral mm
Neck-supple
CV-reg, no M, +S1/S2
Lungs-clear B/L
Abd-soft, NT, ND
Ext-no edema
Musculoskeletal-no cyanosis, clubbing
Skin-warm and dry
Neuro-severe right proximal hip weakness, unable to bend the right knee
Psych-calm, cooperative
PEA/Vfib arrest -following Anesthesia Induction 06/24/2024
Acute Anoxic Encephalopathy vs Delirium -reportedly confusion is slowly improving but I have no comparison as this is my first week with this patient.
-Underwent 3 rounds of ACLS and 4 defibrillations as per Cardio before ROSC was achieved
-ECHO post-code appreciated EF 10-15% no significant change from prior ECHO 06/20/24
-weaned off pressor support
-TTM completed, mental status improving but not at baseline
-Extubated 06/27, downgraded to IMU
-Brain MRI 06/29/24 noted no acute abn though limited study d/t motion defects
-Cardiology plans on LifeVest prior to discharge. Eventual ICD after completion of IV antibiotics per ID recommendations. Cardiology plans on cardiac catheterization possibly today 07/10.
-Low-dose aspirin resumed 07/08
reported hx LV thrombus
-Dx 2 weeks prior to arrival at [facility], suspect due to severely depressed LVEF
-Started on Coumadin anticoagulation 06/07/2024 for LV apical thrombus
-Now on IV heparin per cardiology.
Left retroperitoneal hematoma:
-Large but stable on repeat imaging 07/01
-Continue holding anticoagulation
-Hemoglobin stable
Acute blood loss anemia
-Secondary to blood loss from procedures and retroperitoneal hematoma
-Status post transfusion 10 units so far this admission
Hemoglobin now stable, 9.9. Last transfusion was 07/01.
MSSA bacteremia
-Blood cultures from 06/20 positive for MSSA [correction to prior documentation], repeat cultures from 06/22 also positive
-Suspect secondary to left hallux wet gangrene, which itself is suspected due to embolic effect, status post amputation
-Antibiotics now narrowed to cefazolin 2 g IV every 8 hours, antibiotics to be completed 08/02, PICC line placement when discharge plans have been clarified (hopefully to acute rehab)
-Repeat transthoracic echo 06/24 notable for thickened mitral valves
-Appreciate guidance from ID and podiatry
-strict NWB and elevation LLE as per Podiatry
Right lower extremity weakness -likely acute on chronic but unclear. Appreciate neurology input. Differential diagnosis includes pre-existing myopathy and/or superimposed right lumbosacral plexopathy due to right psoas hematoma. Previous CT scan
from July 01 demonstrates intramuscular hematomas in the right psoas and iliacus muscles.
I spoke with the physiatry service (Dr. Napoles), will plan to get repeat CT abdomen/pelvis angiogram this morning to evaluate for any worsening hematoma that would cause compression of the femoral nerve to cause the right leg weakness. Clinically,
however, I doubt hematoma expansion given improvement in hemoglobin over the past 72 hours.
Left hallux gangrene:
-Suspect secondary to embolism as also caused stroke
-wound cx pos MSSA
-Status post partial amputation in the OR with podiatry 06/23
-Planned for revascularization 06/24 which was aborted d/t PE/Vfib arrest as above
-Continue local wound care, antibiotics with cefazolin
Vascular surgery planning on angiogram and revascularization, timing to be determined.
Acute stroke - Suspect secondary to cardiac emboli
� Acute/subacute infarct in the right periventricular white matter/centrum semiovale region
� Currently holding anticoagulation due to large left retroperitoneal hematoma
� Neurology consult appreciated
� Carotids unremarkable
-Now tolerating PT/OT, to be reevaluated by physiatry
-Restarted aspirin 81 mg daily
Acute on chronic HFrEF
EF 15-20%
-Cardio eval appreciated
-Continue Lasix 40 mg p.o. twice daily
-Beta-blockade with Coreg
-Restarted Entresto and spironolactone
Acute urinary retention:
-Orosco discontinued
-Requiring intermittent straight catheterization
-Will monitor urine output and bladder scans
-Renal function stable
Choledocholithiasis
-ERCP 06/21 with stone identified and removed and biliary sphincterotomy performed
-GI eval appreciated
Transaminitis
� Secondary to choledocholithiasis, ERCP performed 06/21
� Resolving after ERCP
GHAZAL -resolved.
-Initial creat 1.6 since improved
-CKD III ruled out with resolution GHAZAL
-monitor
DM 2/diabetic neuropathy
-Uncontrolled, hemoglobin A1c 10.8% this admission
-DM REWRITER eval appreciated
-Currently Lantus 7 units twice daily and sliding scale insulin
-Farxiga resumed
-Gabapentin 600 mg daily on hold d/t Encephalopathy as above
Constipation
cont Miralax and Sennosides, consider Lactulose if no improvement
Mild Hyponatremia
monitor
Hyperlipidemia
-Continue statin
Nicotine dependence
DVT prophylaxis SCDs
Full code
Dispo -eventual discharge to acute rehab once cleared by cardiology and vascular surgery.
Anticipated Discharge: > 48 hours
Subjective/Interval History
-
Date of Service: July 10, 2024
Patient seen and examined. No complaints. Confused.
Objective Data
-
Labs:
Laboratory Results
07/10/24 07/10/24 07/10/24
01:28 05:16 08:00
WBC 7.2
Hgb 9.9 L
Hct 30.4 L
Plt Count 379
APTT 67.8 H Pending
Vital Signs:
Vital Signs
Temp Pulse Resp BP Pulse Ox
97.8 F 71 18 162/93 95
07/10/24 07:44 07/10/24 07:22 07/10/24 07:00 07/10/24 07:22 07/09/24 20:21
I&O
07/09/24 07/10/24 07/11/24
06:59 06:59 06:59
Intake Total 480 / 480 1225 / 1225
Output Total 150 / 150 1650 / 1650
Balance 330 / 330 -425 / -425
Review of Systems
-
History Source: Patient
All other systems: Reviewed and negative
--- NOTE | 2024-07-10 09:04 | W.PN.ID1 ---
Date of Service
Date of Service: July 10, 2024
Today's Communication
- note plans for cardiac cath tomorrow
- Continue cefazolin 2g IV q8 (day 18 of 42 of abx, 06/22-08/02)
Assessment / Plan
MSSA Bacteremia - cleared
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
PEA/v fib arrest 06/24
Large left retroperitoneal hematoma with blood-loss anemia
CVA
Encephalopathy - resolving
Dm2; uncontrolled
Choledocholithiasis s/p ERCP with 06/21 - resolved
- 06/21 and 06/22 blood cultures finalized negative
- Toe swab cx MSSA. Toe amp path: viable margin with focal osteomyelitis
- outpatient would tighten blood glucose control
- note plans for cardiac cath tomorrow
- Continue cefazolin 2g IV q8 (day 18 of 42 of abx, 06/22-08/02)
- recommend completing 6 weeks course of IV antibiotics with AICD placement afterwards, alternatively would consider suppression
- has PICC line, note he has recently removed a midline
- follow up with PCP, podiatry Dr Main and vascular surgery
Possible cholesterol emboli
- scattered eschars on the r forearm, nontender with mild blanching, surrounding erythema; patient/ believe lesions stable, there throughout hospitalization
- follow clinically
����������������������������������������������������������
Chief Complaint
-: Other (mssa bacteremia, possible endocarditis)
Subjective / Review of Systems
afebrile
bp stable
scattered eschars on the r forearm, nontender with mild blanching, surrounding erythema; patient/ believe lesions stable, there throughout hospitalization
Vital Signs / Physical Exam
Vital Signs
Vital Signs
Temp Pulse Resp BP Pulse Ox
97.8 F 71 18 162/93 95
07/10/24 07:44 07/10/24 07:22 07/10/24 07:00 07/10/24 07:22 07/09/24 20:21
Physical Exam
Constitutional: No Acute Distress
Cardiovascular: Regular Rate and S1/S2; Negative Murmur or Rub
Pulmonary: Clear and Symmetric; Negative Wheezes or Rales
Gastrointestinal: Soft, Non Tender, Non Distended and Normal Bowel Sounds
Skin: Warm, Dry and Rash (scattered eschars on the r forearm, nontender with mild blanching, surrounding erythema; patient/ believe lesions stable, there throughout hospitalization ); Negative Jaundice
Objective Data
Lab Data
Lab Results
07/10/24 05:16
07/08/24 04:07
PT 18.8 Sec (11.4-14.6) H 06/27/24 03:27
INR 1.52 06/27/24 03:27
APTT 67.8 Sec (23.4-35.0) H 07/10/24 01:28
Estimated Creat Clear 90 ml/min 07/08/24 04:07
Lactic Acid 1.0 mmol/L (0.7-2.0) 06/26/24 08:48
Total Bilirubin 2.8 mg/dl (0.2-1.3) H 07/05/24 03:24
AST 52 U/L (17-59) 07/05/24 03:24
ALT 13 U/L (0-50) 07/05/24 03:24
Alkaline Phosphatase 150 U/L (38-126) H 07/05/24 03:24
Most recent labs reviewed.
Micro Results:
06/22/24 13:23 Blood Culture - Final
Blood/Venous No Growth - Final Report
06/21/24 09:33 Blood Culture - Final
Blood/Venous No Growth - Final Report
06/22/24 14:36 Wound Culture - Final
Abscess S aureus-Methicillin Sensitive
Gram Stain - Final
06/20/24 00:42 Blood Culture - Final
Blood/Venous S aureus-Methicillin Sensitive
Gram Stain - Final
06/20/24 01:59 Blood Culture - Final
Blood/Venous S aureus-Methicillin Sensitive
Gram Stain - Final
06/18/24 16:51 Urine Culture - Final
Urine NO GROWTH
06/18/24 16:11 Influenza Types A & B (HUBER) - Final
Nasal Swab Negative for Influenza A & B, NAAT
Negative results must be combined with clinical observations
and patient history.
Nucleic Acid Amplification test (NAAT)performed on the
[employer] platform.
Imaging:
06/24/2024 ECHO (TTE): Normal LV chamber size. Severely reduced LV systolic function with EF approximately 10 to 15%. Severe global hypokinesis. Mitral valve opens normally, but is noted to have thickened leaflets and mitral annular calcification.
Mild mitral regurgitation. Please see full dictation for additional detail.
06/30/24 Brain MRI: No clear MRI evidence for an acute intracranial abnormality within the significant limitations of extensive motion artifact during this exam.
[2024-07-10 09:08] LABS: APTT 33.9 Sec (23.4-35.0)
--- NOTE | 2024-07-10 10:26 | PTCARENOTE ---
Patient back to unit from CT scan.
[2024-07-10] MEDS: PACERONE 200 MG PO (10:29)
[2024-07-10] MEDS: COREG 12.5 MG PO ×2 (10:30→21:08)
[2024-07-10] MEDS: LASIX 40 MG PO (10:30)
[2024-07-10] MEDS: LOW STRENGTH ASPIRIN 81 MG PO (10:30)
[2024-07-10] MEDS: ENTRESTO 49 MG/51 MG 1 TAB PO ×2 (10:30→21:08)
[2024-07-10] MEDS: PROTONIX 40 MG PO (10:30)
[2024-07-10] MEDS: ALDACTONE 25 MG PO (10:31)
[2024-07-10] MEDS: LANTUS 0.08 UNITS SC ×2 (10:44→22:05)
[2024-07-10] MEDS: NOVOLOG FLEXPEN-LOW RESISTANCE SC ×2 (10:44→17:28)
[2024-07-10] MEDS: MIRALAX 17 GRAMS PO (10:44)
[2024-07-10] MEDS: SENOKOT 17.2 MG PO ×2 (10:45→21:07)
[2024-07-10 12:26] LABS: Glucose - Point of Care 151 mg/dl (70-99)
[2024-07-10] MEDS: NOVOLOG FLEXPEN-LOW RESISTANCE 1 UNITS SC (13:01)
--- NOTE | 2024-07-10 13:28 | PTCARENOTE ---
Patient NPO overnight. 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 Heparin drip discontinued for lab[employer]. Patient updated and in laborer car [employer] waiting room.
--- NOTE | 2024-07-10 13:50 | ITS.CL.CATH ---
Addendum entered and electronically signed by Fernanda Sutton MD 07/10/24 15:24:
+25 modifier
Fernanda Sutton MD, [facility]
Original Note:
Incident Response Engineer - Catheterization
Cardiac Catheterization
Procedure Report:
LEFT AND RIGHT HEART CATHETERIZATION
Date of Procedure: July 10, 2024
Referring: Red Redd
PROCEDURES:
1. Left heart catheterization, coronary angiogram.
2. Right heart catheterization.
3. Ultrasound-guided access.
4. Moderate sedation
INDICATION: Severe LV dysfunction with recent cardiac arrest last week, being referred to rule out obstructive CAD.
ACCESS: Right radial artery, 6 Italian sheath, under ultrasound guidance.
Ultrasound was utilized for vascular access. The radial artery was visualized under ultrasound, and the vessel was patent and pulsatile. An image was stored permanently in the patient's medical record. Under direct ultrasound guidance, a 6 Italian
sheath was inserted into the artery using a micropuncture kit through a modified Seldinger technique.
HEMODYNAMICS : (mmHg)
RA (m) : 10
RV (s/d,m) : 43/7, 10
PA (s/d, m) : 45/18, 28
PCWP (m) : 25
PA saturation: 63.9% on room air
AO saturation: 97.1%on room air
RA saturation: 62.7% on room air
Cardiac Output : 5.8 L/min
Cardiac Index : 2.73 L/min/m-2
Systemic vascular resistance: 1268 dsc^(-5)
Pulmonary vascular resistance: 0.17 avalos unit
AO (s/d) : 144/78
LV (s/d) : 147/12
LVEDP : 22
CORONARY FINDINGS
DOMINANCE: Right
LEFT MAIN: The left main artery is a large-caliber vessel which gives rise to the left anterior descending artery, ramus intermedius artery and the left circumflex artery. There is mild diffuse atherosclerotic plaque
LEFT ANTERIOR DESCENDING: The left anterior descending artery is a large-caliber vessel which gives off a large caliber branching high diagonal branch. The LAD has 100% chronic total occlusion in the midportion just distal to the takeoff of a large
branching diagonal branch with robust right to left and left to left collaterals. The large diagonal branch has 2 serial up to 90% stenosis in the upper branch and a 80% ostial stenosis in the lower branch. The diagonal branch is also a good
bypass target.
RAMUS INTERMEDIUS: The ramus intermedius branch is a medium caliber vessel. There is a 80% stenosis in the midportion which is focal. The ramus intermedius branch appears to be a decent bypass target.
CIRCUMFLEX: The left circumflex artery is a medium caliber vessel which gives rise to 1 small to medium caliber obtuse marginal branch. Mid left circumflex has 40 to 50% stenosis. Midportion of OM1 which is a small to medium caliber vessel has 60
to 70% stenosis and may not be a great bypass target.
RIGHT CORONARY ARTERY: The right coronary artery is a large-caliber, dominant vessel which gives rise to the right posterior descending artery and the right posterolateral system. RCA proper has mild diffuse atherosclerotic plaque. Ostial RPDA has
70 to 75% stenosis and a 70% stenosis in the midportion but appears to be a good bypass target. The RPL system is large with ostial eccentric 75 to 80% stenosis and a 50% stenosis in the midportion but is otherwise a good bypass target.
SEDATION: 47 minutes of procedural sedation was utilized. An independent medical oncology physician was present to assist with and help manage the patient's level of consciousness and physiologic status.
RADIATION SUMMARY: Fluoro Time (min): 4.4, Dose (mGy): 532.93, DAP (Gy.cm2) : 35.6
Closure Device: Vascular band over right radial artery, 10 cc of air. Manual pressure was held over the right common femoral venous access site with successful hemostasis.
CONCLUSIONS
1. Significant multivessel coronary artery disease.
2. Elevated right and left-sided filling pressures with normal cardiac output.
RECOMMENDATIONS
1. Heart team discussion with CT surgery consult for consideration for coronary artery bypass grafting with possible grafts to LAD, diagonal, ramus intermedius branch, possibly OM, RPL and RPDA.
2. Continue goal-directed medical therapy for obstructive CAD and severe ischemic cardiomyopathy.
3. Wean radial band per protocol.
4. Bedrest per protocol for right groin femoral venous access.
5. Aggressive management of cardiovascular risk factors.
6. Eventual referral for outpatient cardiac rehab.
Fernanda Sutton MD, FACC, [facility]
--- NOTE | 2024-07-10 14:06 | W.PN.CARDCBS ---
Addendum entered and electronically signed by Fernanda Sutton MD 07/10/24 15:23:
I saw and examined the patient.
The Featherer's note was reviewed and I agree with the note.
Comment: Overall patient is doing well and does not offer any significant complaints. He denies any chest pain. There was concern when he worked with [facility]NR yesterday about him having new right lower extremity weakness worse than before.
Vital signs and lab work reviewed. Anemia noted but hemoglobins have been stable/improved since the time of multiple blood transfusions in the setting of RP hematoma, regular rate, normal S1 and S2, lungs are clear to auscultation bilaterally,
elevated JVP about 10 cm of water, abdomen is soft, nontender, nondistended with active bowel sounds, warm extremities, no significant edema. 2+ right radial pulse.
Recommendations:
1. Lengthy discussion was had with primary team/hospitalist given concern for possible new right lower extremity weakness and concern for possible enlargement of the RP hematoma potentially compressing on the femoral nerve although his hemoglobins
continue to remain stable. Noncontrast abdomen pelvis CT was performed which showed that the RP hematoma was stable in size. Given no other changes with stable hemoglobins decision was made to move forward with heart catheterization to rule out
obstructive CAD.
2. Lengthy discussion was had with family at bedside in regards to what the procedure entails reviewing the risk and benefits of the procedure and given they are agreeable we will proceed with planned heart catheterization via right radial
approach. Depending on the findings with severe cardiomyopathy, we may consider right heart catheterization to assess cardiac output and rule out concerns for low-flow state.
Further recommendations based on heart catheterization.
Fernanda Sutton MD, [facility]
Original Note:
Today's Communication / Plan
-
[facility] today
Recheck ECG in AM
Impression / Plan
-
PCP: Dr. Sherwood
Cardiology: Dr. Ny, last seen 06/2022
Impression:
Intraoperative PEA/ventricular fibrillation arrest 06/24/2024
Admitted with confusion and acute HFrEF 06/18/24
Tiny nonhemorrhagic acute/subacute infarct in the right periventricular white matter/centrum semiovale region by MRI 06/19/2024
Recent admission to [facility] for acute HF and foot wound 06/06/24 until 06/12/24
Hypotension
Acute HFrEF
CM EF 15% by echo at [facility] 06/07/24
h/o improved NICM EF 25% by echo 03/2018 and then improved to 40% by echo 06/2022
Nonobstructive CAD by cath 2017
Medication noncompliance
Newly diagnosed LV thrombus
1.5 x 1.2 cm LV apical clot on echo at [facility] 06/07/24
Chronic warfarin managed by [facility]
started for LV clot 06/07/24
Supratherapeutic INR on admission
Hyponatremia
GHAZAL on CKD 3a
Elevated LFTs
Chews tobacco
Unwitnessed fall 06/20/2024
tele reviewed and no arrhythmia
Hyperglycemia
Anemia
Left retroperitoneal hematoma by CT 06/30/24
Echo 05/30/2024: [facility] study, EF 15 to 20%, severe global hypokinesis and septal dyskinesis, small and organized thrombus in the LV apex measuring 1.5 x 1.2 cm, grade 3 diastolic dysfunction, at least mildly dilated RV with reduced
systolic function, mild to moderate MR, mild pericardial effusion seen posteriorly without evidence of tamponade
Echo 06/20/24 with IV echo contrast: LV ejection fraction severely reduced, 15-20% with global hypokinesis. Dilated, hypokinetic right ventricle. Biatrial dilatation. Mild MR. Mild to moderate TR. Estimated pulmonary artery systolic pressure
50-55 mmHg. Small pericardial effusion without evidence of hemodynamic compromise. No LV apical thrombus
Plan:
-Talked with patient's , Sara, and daughter, Bernadine, in the room on 07/10/24. We reviewed cardiac cath procedure and risk versus benefit. We also discussed the plan for sedation. We reviewed possible outcomes of cardiac cath. Patient and
family are all in agreement.
-Plan is for [facility] on 07/10/24
-Hgb stable at 9.9 on 07/10/2024 following a total of 10 units PRBCs this admission for large left-sided retroperitoneal hematoma, last transfusion was 07/01/2024 AM.
-New right leg weakness prompted an urgent CT abd/pelvis without contrast and the previously identified left-sided retroperitoneal hematoma is stable.
-Hgb has been stable following restart of Heparin gtt on 07/08/24 PM
-Aspirin 81 mg daily also restarted 07/08/24
-LifeVest for now and then eventual AICD due to intraoperative PEA/VF arrest 06/24/24 once cleared from an ID standpoint following MSSA bacteremia. Patient had been given propofol and fentanyl and had undergone vascular access, but no other
instrumentation at the time of his event. Patient had CPR with 4 shocks, magnesium IV, amiodarone 300 mg and then 150 mg and then ROSC. He then underwent TTM and was warmed on 06/26/2024.
-No recurrence of ventricular arrhythmia, but he was loaded with 5+ grams amiodarone PO and has now transitioned to 200 mg daily. QTc 482 ms by ECG on 07/09/2024 as reviewed by me. Recheck ECG in a.m., ordered by me.
-Known history of an ICM and EF down to 25% in 2018, then improved to 40% with medical therapy by last echo 06/2022 followed by noncompliance for unclear reasons and EF now down to 15% by echoes starting 05/30/24.
-Patient with new LV clot by echo at [facility] 05/30/2024. Echo repeated with [facility] at 06/20/24 and no evidence of LV apical thrombus.
-Patient then had MRI brain 06/20/24 that showed a tiny nonhemorrhagic acute/subacute infarct in the right periventricular white matter/centrum semiovale region. Neurology saw the patient and felt that this may have been an incidental finding as the
patient was felt to be cognitively intact without functional decline, but had an episode of confusion with garbled speech on admission.
-When patient had LV clot identified at [facility] he was started on warfarin, warfarin was held during this admission to allow for ERCP that was performed on 06/21/2024 and patient was bridged with heparin. Heparin gtt now on hold due to
evidence of a large left-sided retroperitoneal hematoma on CT scan 06/30/2024. [facility] manages INRs that are drawn at [facility] and the goal is 2-3.
-Outpatient dose of Lasix 40 mg BID has been continued
-Outpatient dose of Coreg 12.5 mg BID has been continued
-Outpatient dose of Entresto lowered earlier this admission due to hypotension, but BP has improved and dose increased to 49/51 mg BID as of 07/09/24
-Outpatient dose of spironolactone 25 mg daily has been continued
-Outpatient dose of Farxiga 10 mg daily has been continued
-[facility] at is likely at end of admission and they can take LifeVest patients
Additional summary of admission thus far: Admitted with change in mental status and found to have small nonhemorrhagic right hemispheric CVA, recently hospitalized with LV thrombus and acute and chronic HFrEF with left lower extremity wound
infection. Also with choledocholithiasis, status post ERCP and sphincterotomy with stone extraction 06/21/24. Underwent debridement of left foot wound and partial first ray amputation with podiatry on 06/23/24. Then taken to the vascular OR on
06/24/24 for peripheral angiogram and possible intervention and upon induction of anesthesia had pulseless electrical activity degenerating into VF requiring ACLS and ultimately return of spontaneous circulation. Patient had TTM and was eventually
extubated, but has not recovered neurologically. Patient has also been receiving treatment for acute HFrEF during hospital stay. Patient also noted to have large left retroperitoneal hematoma by CT 06/30/2024 and has received 10 units PRBCs this
admission. Heparin gtt placed on hold 06/30/2024 and has not been resumed as of 07/04/2024. Aspirin restarted 07/08/24. Family agreeable to Life Vest after talking with 07/08/24 and they're looking into [facility] at for rehab.
HPI: Patient came to [facility] from home yesterday with confusion and garbled speech and was admitted for acute HF and cardiology has been consulted. Patient is a poor historian and gave me permission to call his daughter. Also reviewed 67 pages of
records from recent [facility] admission. Patient had NICM diagnosed in 2018 and with GDMT his EF improved to 40% by last echo at in 06/2022. Patient then stopped coming to cardiology appts at , but reportedly did not start following elsewhere.
Patient then retired and stopped taking his medications on a regular schedule despite reminders from family. Patient started with LE wounds 02/2024 and following with wound care center and seemed to be improving. Patient then started with a cough
and saw his PCP 05/02/24 and lungs were clear and he was started on promethazine and albuterol. Patient was then admitted to [facility] with SOB 06/06/24 and during that admission was found to have EF down to 15% and he had a new LV clot and was started
on warfarin. Patient was also d/c'd to home on Coreg, Entresto and spironolactone which are meds he had been on when he was last seen in the cardiology office in 2022. Patient was diuresed with Lasix IV and d/c'd to home on Lasix 40 mg PO BID.
Patient's daughter reports that patient was not taking meds at home and when VN came to see him he had garbled speech and was sent to the ER.
Progress Note - Patient Support Tech
Subjective
Date of Service: July 10, 2024
Feels well, denies pain
Objective
Labs:
07/10/24 05:16
07/08/24 04:07
Labs
Hgb 9.9 g/dL (13.0-18.0) L 07/10/24 05:16
Hct 30.4 % (39.0-52.0) L 07/10/24 05:16
Plt Count 379 10^3/uL (130-400) 07/10/24 05:16
PT 18.8 Sec (11.4-14.6) H 06/27/24 03:27
INR 1.52 06/27/24 03:27
APTT 33.9 Sec (23.4-35.0) 07/10/24 08:48
Sodium 140 mmol/L (135-145) 07/08/24 04:07
Potassium 4.2 mmol/L (3.5-5.1) 07/08/24 04:07
BUN 26 mg/dl (9-20) H 07/08/24 04:07
Creatinine 1.0 mg/dL (0.7-1.3) 07/08/24 04:07
Glucose 125 mg/dl (70-99) H 07/08/24 04:07
Vital Signs and I&O:
Vital Signs
Temp Pulse Resp BP Pulse Ox
97.8 F 63 22 127/69 95
07/10/24 11:45 07/10/24 12:00 07/10/24 12:00 07/10/24 12:00 07/09/24 20:21
Vital Signs
Temp Pulse Resp BP Pulse Ox
97.8 F 63 22 127/69 95
07/10/24 11:45 07/10/24 12:00 07/10/24 12:00 07/10/24 12:00 07/09/24 20:21
Intake & Output
07/08/24 07/09/24 07/10/24 07/11/24
06:59 06:59 06:59 06:59
Intake Total 360 / 360 480 / 480 1225 / 1225
Output Total 650 / 650 150 / 150 1650 / 1650
Balance -290 / -290 330 / 330 -425 / -425
Physical Exam
Physical Exam
GEN: NAD. Awake, alert and pleasant
HEENT: MMM
LUNGS: RA. No audible wheeze
CV: SR with PVCs on tele.
ABD: ND
EXT: No edema.
SKIN: No rash
[2024-07-10 14:30] LABS: ACT-LR - POC 213 Seconds (116-155)
--- NOTE | 2024-07-10 15:05 | CM ---
Reviewed the chart notes. Patient down for [facility] today. CM continues to be available to patient/family and is monitoring medical plan for needs at discharge.
Plan: Discharge plans will depend on the patient's progress. Acute rehab vs snf.
--- NOTE | 2024-07-10 15:26 | PTCARENOTE ---
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 Patient Awake and alert. VS stable BP 148/81,63,26,99% RA. Patient with right radial TB and right groin site. Bedrest for 2 hours. SR/SB on monitor. Will monitor frequently.
--- NOTE | 2024-07-10 15:36 | CONSULT.CT ---
Consultation
-
Date/Time Consultation Requested: 07/10 1438
Date/Time Consultation Performed: 07/10 1538
Requesting Provider: Katelyn SANTIAGO
Performing Provider: Joce Gamboa MD
Reason for Consultation: CABG eval
Patient History
Physicians
Family Physician: Dr. Sherwood
Outpatient Nutritional Services Host: Dr. Ny
Inpatient Nutritional Services Host: Dr. Ny
History of Present Illness
63-year-old male who was brought to [facility] emergency room after having a episode of confusion and garbled speech and a non healing left foot wound as well as a acute gangrenous left hallus and foot infection on 06/18. MRI performed on 06/19
demonstrate a tiny nonhemorrhagic subacute infarct in the right periventricular white matter semiovale region. Patient fell on 06/20 and echocardiogram performed on that day showed an EF of 15-20% with a thrombus in the LV apex on 06/21 patient
received an ERCP and on 06/24 patient was taken to the OR by vascular for a u/s guided LE arteriogram. Unfortunately the procedure was aborted due to a patient's PEA/VF cardiac arrest during intubation. Post ROSC patient was subsequently admitted
to the ICU undergoing therapeutic temperature management protocol. On 06/24 CLAIR was positive for an EF of 10 to 15% without an LV thrombus. Patient's was also noted to be febrile however blood cultures remain negative but toe culture grew MSSA and
possible osteomyelitis of the left foot he has been treated with cefazolin 2 g IV Q8 per infectious disease recommendations. Patient also noted to have a large left retroperitoneal bleed and received 10 units of packed red blood cells.
Due to the patient's reduced ejection fraction he was taken to the cardiac [facility] today where multivessel disease was found. CT surgery was consulted for surgical evaluation.
Past Medical History
Past Medical History: Other
Recent admission to [facility] for acute HF and foot wound 06/06/24 until 06/12/24
Hypotension
Acute HFrEF
CM EF 15% by echo at [facility] 06/07/24
h/o improved NICM EF 25% by echo 03/2018 and then improved to 40% by echo 06/2022
Nonobstructive CAD by cath 2017
Medication noncompliance
Newly diagnosed LV thrombus
1.5 x 1.2 cm LV apical clot on echo at [facility] 06/07/24Chronic warfarin managed by [facility]
started for LV clot 06/07/24Supratherapeutic INR on admission
Hyponatremia
GHAZAL on CKD 3a
Elevated LFTs
Chews tobacco
Unwitnessed fall 06/20/2024
tele reviewed and no arrhythmiaHyperglycemia
Anemia
Left retroperitoneal hematoma by CT 06/30/24
Past Surgical History
Past Surgical History: Orthopedic
Cath in 2017
Dental History
unknown
Family History
Family Medical History: CAD and Cancer
Social History
Alcohol: None
Drug: None
Tobacco: Former Smoker (Smoked from teenage to third)
Personal:
Living: With Spouse
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
Allergies
Allergy/AdvReac Type Severity Reaction Status Date / Time
No Known Allergies Allergy Verified 06/18/24 16:01
Home Medications
�Medication �Instructions �Recorded �Confirmed �Type
aspirin 81 mg tablet,delayed 81 mg PO DAILY Heart disease 07/06/09 06/18/24 History
release
zolpidem 10 mg tablet 10 mg PO HS Sleep 04/22/19 06/18/24 History
furosemide 40 mg tablet 40 mg PO BID Fluid 05/19/19 06/18/24 History
retention/Swelling
gabapentin 600 mg tablet 600 mg PO HS Neurological Condition 07/09/20 06/18/24 History
(Neurontin)
carvedilol 12.5 mg tablet 12.5 mg PO BID Heart Failure ##30 07/14/20 06/18/24 Rx
albuterol sulfate 90 mcg/actuation 2 puff inhalation R Q6HPRN PRN sob 06/18/24 06/18/24 History
aerosol inhaler
atorvastatin 80 mg tablet 80 mg PO DAILY High Cholesterol 06/18/24 06/18/24 History
dapagliflozin propanediol 10 mg 10 mg PO DAILY Heart 06/18/24 06/18/24 History
tablet (Farxiga) Disease/Condition
hydralazine 25 mg tablet 25 mg PO TID Blood Pressure 06/18/24 06/18/24 History
insulin detemir U-100 100 unit/mL 20 unit SC BID@0800,1700 Diabetes 06/18/24 06/18/24 History
(3 mL) subcutaneous pen (Levemir
FlexTouch U-100 Insulin)
insulin lispro 100 unit/mL 5 unit SC AC Diabetes 06/18/24 06/18/24 History
subcutaneous pen (Humalog KwikPen
(U-100) Insulin)
magnesium oxide 400 mg PO BID Electrolyte Repletion 06/18/24 06/18/24 History
sacubitril 97 mg-valsartan 103 mg 1 tab PO BID Heart 06/18/24 06/18/24 History
tablet (Entresto) Disease/Condition
spironolactone 25 mg tablet 25 mg PO QPM Heart 06/18/24 06/18/24 History
Disease/Condition
warfarin 7.5 mg tablet 5 mg PO QPM Blood Clot 06/18/24 06/18/24 History
Prevention/Tx
Review of Systems
-
Unable to obtain full review of systems at this time due to: Other (acute confusion)
History Source: Patient and Family
General: Reports Weight Loss and Fatigue
HEENT: Reports No Symptoms
Respiratory: Reports No Symptoms
Cardiac: Reports CAD
Abdomen/GI: Reports No Symptoms
: Reports No Symptoms
Musculoskeletal: Reports Myalgias
Skin: Reports Itching
Neurological: Reports TIA and Dizzy
Vascular: Reports Claudication
Physical Exam
Vital Signs
Temp 97.8 F 07/10/24 11:45
Temp route: Oral 07/10/24 11:45
Pulse 63 07/10/24 12:00
Rhythm: Normal sinus rhythm 07/10/24 07:57
With- PVC's Monomorphic, Sinus bradycardia 07/10/24 07:57
Telemetry QTc: 500 06/25/24 09:40
Resp Rate 22 07/10/24 12:00
Systolic BP: 150 06/27/24 08:31
Blood pressure 127/69 07/10/24 12:00
Blood pressure extremity used: Right forearm 07/01/24 08:58
Position: Lying 07/01/24 08:58
MAP (cuff-Kenna Monitor) 85 07/10/24 12:00
SaO2 95 07/09/24 20:21
Nasal Cannula flow liters per minute 2 07/07/24 10:25
Oxygen Mode of Delivery Room air 07/09/24 20:21
Oxygen Mode of Delivery: Room air 06/23/24 12:59
Flow liters per minute # 6 06/21/24 12:35
% Oxygen delivered 30 06/27/24 09:08
Pulse Ox at Rest 95 07/07/24 10:25
Acceptable pain level during hospitalization? 0 06/18/24 15:57
Can the patient verbally communicate their pain? Yes 07/10/24 08:00
Pain scale ratin 07/09/24 16:14
Arterial Systolic Pressure 141 06/27/24 01:45
Arterial Diastolic Pressure 57 06/27/24 01:45
MAP (T-Ovxv-Uzixudv Monitor) 85 06/27/24 01:45
Actual Weight 84.8 kg 07/10/24 05:17
Body Mass Index (BMI) 22.8 07/10/24 05:17
Supine- Blood Pressure 157/107 07/09/24 14:25
Supine- Pulse 76 07/09/24 14:05
Sitting- Blood Pressure 123/67 06/20/24 16:13
Sitting- Pulse 73 06/20/24 16:13
Standing- Blood Pressure 89/51 06/19/24 12:06
Standing- Pulse 66 06/19/24 12:06
etC02 value 37 06/27/24 07:45
Heart rate after activity 68 06/19/24 12:06
Blood pressure after activity 132/72 06/20/24 12:03
Labs
07/10/24 05:16
07/08/24 04:07
PT 18.8 Sec (11.4-14.6) H 06/27/24 03:27
APTT 33.9 Sec (23.4-35.0) 07/10/24 08:48
Hemoglobin A1c 10.8 % (4.0-5.6) H 06/19/24 05:43
Troponin I 0.101 ng/ml H* D 06/25/24 05:48
Dwl-J-Innbqcoqohd Pept 40328 pg/ml 06/24/24 11:02
Arterial Blood Gases
pH 7.48 (7.35-7.45) H 06/27/24 09:41
pCO2 35 mmHg (35-48) 06/27/24 09:41
pO2 132 mmHg (83-108) H 06/27/24 09:41
HCO3 26.1 mmol/L (21-28) 06/27/24 09:41
Base Excess 2.5 mmol/L 06/27/24 09:41
ABG O2 Sat (Measured) 99.9 % (94-98) H 06/27/24 09:41
O2 Delivery Level 06/27/24 09:41
Urinalysis
Urine Color Yellow 06/18/24 16:51
Urine Clarity Clear (Clear) 06/18/24 16:51
Urine pH 5.0 (5.0-9.0) 06/18/24 16:51
Ur Specific [place] 1.025 (<1.030) 06/18/24 16:51
Urine Ketones Negative (Negative) 06/18/24 16:51
Ur Occult Blood Reflex 1+ (Negative) A 06/18/24 16:51
Urine Bilirubin Negative (Negative) 06/18/24 16:51
Leukocyte Esterase Rfl Negative (Negative) 06/18/24 16:51
Urine RBC 0-2 /HPF (0-2) 06/18/24 16:51
Urine WBC (Reflex) 6-10 /HPF (0-5) 06/18/24 16:51
Ur Squamous Epith Cells 3-5 /LPF (Few) 06/18/24 16:51
Urine Bacteria (Reflex) Moderate (Negative) A 06/18/24 16:51
Urine Glucose 3+ (Negative) A 06/18/24 16:51
Urine Albumin (Reflex) 3+ (Neg - Trace) A 06/18/24 16:51
Exam
General: Well Developed
HEENT: Normocephalic and PERRLA
Respiratory: Crackles
Cardiac: S1/S2 and Regular Rhythm
GI: Soft and Non Tender
Rectal: Deferred by Provider
Skin: Warm
Neuro: Awake, Alert and Other (short attention span)
Extremities: Other (LLE unable to bear weight and +wound)
Lymph: No Lymphadenopathy
Psych: Calm and Confused
Assessment / Plan
-
63-year-old male with past medical history and extensive hospital stay listed above. Patient received a left heart cath today which revealed multivessel disease and CT surgery was consulted for surgical workup.
#CAD
-Patient's case will be discussed with attending physician. Further details regarding surgical timing intervention will be determined after attending physicians full evaluation
-Routine preoperative cardiothoracic surgery orders will be initiated after CT surgeons decision
-STS risk stratification score will be calculated after preoperative testing is complete
[2024-07-10 17:13] LABS: Glucose - Point of Care 107 mg/dl (70-99)
[2024-07-10] MEDS: LASIX 40 MG IV (17:28)
--- NOTE | 2024-07-10 17:30 | PTCARENOTE ---
Radial band removed at 1730. No signs of bleeding. 2x2 dressing applied to site. Right groin dressing intact. Radial and groin pulses good. Doppler pulses to bilateral pedals. VS stable. in room at bedside. Patient oriented to self ,
confused. BA alarm on. SR on monitor. Heparin drip on hold. Will monitor.
--- NOTE | 2024-07-10 17:41 | W.PN.UPDATE ---
Update Note
Progress Note Update
Procedure Type:�Isolated CABG
Perioperative Outcome Estimate %
Operative Mortality 3.72%
Morbidity & Mortality 14.6%
Stroke 1.47%
Renal Failure 1.84%
Reoperation 4.89%
Prolonged Ventilation 7.01%
Deep Sternal Wound Infection 0.172%
Long Hospital Stay (>14 days) 11.1%
Short Hospital Stay (<6 days)* 22.5%
Clinical Summary
Planned Surgery: Isolated CABG, Urgent, First cardiovascular surgery
Demographics: 63 year old, White, male, 84.8kg, 193cm, BMI: 22.8 kg/m�
Lab Values: Creatinine: 1 mg/dL, Hematocrit: 30.4%, WBC Count: 7.2 10�/�L, Platelet Count: 212272 cells/�L
PreOp Medications: Insulin diabetes control
Substance Abuse: Former smoker
Risk Factors / Comorbidities: Insulin-dependent Diabetes Mellitus, Hypertension, Family Hx of CAD
Vascular RF: Cerebrovascular Disease: TIA
Cardiac Status: Acute heart failure, NYHA Class III, Ejection Fraction = 15%
Coronary Artery Disease: 2 vessels diseased, Unstable Angina, RI: > 21 Days
Valve Disease: Trivial/Trace AR, Mild MR, Moderate TR
Arrhythmia: Recent V. Tach / V. Fib
[2024-07-10 21:21] LABS: Glucose - Point of Care 278 mg/dl (70-99)
[2024-07-10] MEDS: HEPARIN 25000 UNITS/250 ML IV (21:54)
[2024-07-10] MEDS: TYLENOL 1000 MG PO (21:58)
[2024-07-10 22:11] LABS: APTT 34.4 Sec (23.4-35.0)
--- NOTE | 2024-07-10 23:54 | PTCARENOTE ---
Assumed care for patient overnight, received report from nayan RN. Pt disoriented to time and place. Pt pleasant, but forgetful. Pt daughter at the bedside. Order to resume heparin gtt at previous rate. Initial PTT obtained. Heparin gtt
restarted. Pt remains on RA lungs diminished. NSR to sinus linda with PVC's on tele. B/l lower extremity pulses heard with a doppler. R femoral cath site clean dry and intact. R radial cath site shows no sign of bleeding, reinforced dressing with
4x4 gauze. L toe amputation surgical site cleaned and redressed. Sutures remain. Pt experiencing 6/10 pain to the left foot. PRN Tylenol administered. Pt also complaining of 'cramping' in the right leg/quad area. Pt utilizing his arms to bend the
right leg. Pt grossly incontinent of urine and requires assistance with the urinal. Pt educated on the use of the call dlilard. Full bed change and CHG bath done. Call dillard within reach.
[2024-07-11] VITALS (31 sets, daily range): BP systolic 127–169; BP diastolic 55–135; BMI 22.6
[2024-07-11 04:31] LABS: Blood Urea Nitrogen 19 mg/dl (9-20); Carbon Dioxide 34 mmol/L (22-30); Chloride 103 mmol/L (98-107); Estimated Creatinine Clearance 88 ml/min; Glucose 149 mg/dl (70-99); Potassium 3.6 mmol/L (3.5-5.1); Sodium 140 mmol/L (135-145); eGFR > 60.00
[2024-07-11 04:59] LABS: APTT 90.9 Sec (23.4-35.0)
[2024-07-11] MEDS: ANCEF 10 IV ×3 (05:59→21:30)
[2024-07-11 07:47] LABS: Glucose - Point of Care 157 mg/dl (70-99)
--- NOTE | 2024-07-11 08:09 | W.PN.HOSP.TC ---
Today's Communication/Plan
-
Await CT surgery input
Assessment / Plan
Assessment / Plan
Gen-awake, alert, confused, NAD
HEENT-NC, AT, anicteric, clear oral mm
Neck-supple
CV-reg, no M, +S1/S2
Lungs-clear B/L
Abd-soft, NT, ND
Ext-no edema
Musculoskeletal-no cyanosis, clubbing
Skin-warm and dry
Neuro-severe right proximal hip weakness, unable to bend the right knee
Psych-calm, cooperative
PEA/Vfib arrest -following Anesthesia Induction 06/24/2024
Acute Anoxic Encephalopathy vs Delirium -reportedly confusion is slowly improving but I have no comparison as this is my first week with this patient.
-Underwent 3 rounds of ACLS and 4 defibrillations as per Cardio before ROSC was achieved
-ECHO post-code appreciated EF 10-15% no significant change from prior ECHO 06/20/24
-weaned off pressor support
-TTM completed, mental status improving but not at baseline
-Extubated 06/27, downgraded to IMU
-Brain MRI 06/29/24 noted no acute abn though limited study d/t motion defects
-Cardiology plans on Life[facility]est prior to discharge. Eventual ICD after completion of IV antibiotics per ID recommendations.
-Low-dose aspirin resumed 07/08
Multivessel CAD -noted on cardiac catheterization 07/10. CT surgery consulted. Patient lacks insight and cannot make decisions on his own. He will not be able to process risks versus benefits. Will need surrogate decision maker via family.
reported hx LV thrombus
-Dx 2 weeks prior to arrival at [facility], suspect due to severely depressed LVEF
-Started on Coumadin anticoagulation 06/07/2024 for LV apical thrombus
-Now on IV heparin per cardiology.
Left retroperitoneal hematoma:
-Large but stable on repeat imaging 07/01
-Continue holding anticoagulation
-Hemoglobin stable
Acute blood loss anemia
-Secondary to blood loss from procedures and retroperitoneal hematoma
-Status post transfusion 10 units so far this admission
Hemoglobin now stable, 9.9. Last transfusion was 07/01.
MSSA bacteremia
-Blood cultures from 06/20 positive for MSSA [correction to prior documentation], repeat cultures from 06/22 also positive
-Suspect secondary to left hallux wet gangrene, which itself is suspected due to embolic effect, status post amputation
-Antibiotics now narrowed to cefazolin 2 g IV every 8 hours, antibiotics to be completed 08/02, PICC line placement when discharge plans have been clarified (hopefully to acute rehab)
-Repeat transthoracic echo 06/24 notable for thickened mitral valves
-Appreciate guidance from ID and podiatry
-strict NWB and elevation LLE as per Podiatry
Right lower extremity weakness -likely acute on chronic but unclear. Appreciate neurology input. Differential diagnosis includes pre-existing myopathy and/or superimposed right lumbosacral plexopathy due to right psoas hematoma. Previous CT scan
from July 01 demonstrates intramuscular hematomas in the right psoas and iliacus muscles.
Repeat CT July 10 without contrast demonstrates stability of hematomas. No change.
Left hallux gangrene:
-Suspect secondary to embolism as also caused stroke
-wound cx pos MSSA
-Status post partial amputation in the OR with podiatry 06/23
-Planned for revascularization 06/24 which was aborted d/t PE/Vfib arrest as above
-Continue local wound care, antibiotics with cefazolin
Vascular surgery planning on angiogram and revascularization, timing to be determined.
Acute stroke - Suspect secondary to cardiac emboli
� Acute/subacute infarct in the right periventricular white matter/centrum semiovale region
� Currently holding anticoagulation due to large left retroperitoneal hematoma
� Neurology consult appreciated
� Carotids unremarkable
-Now tolerating PT/OT, to be reevaluated by physiatry
-Restarted aspirin 81 mg daily
Acute on chronic HFrEF
EF 15-20%
-Cardio eval appreciated
-Continue Lasix 40 mg p.o. twice daily
-Beta-blockade with Coreg
-Restarted Entresto and spironolactone
Acute urinary retention:
-Orosco discontinued
-Requiring intermittent straight catheterization
-Will monitor urine output and bladder scans
-Renal function stable
Choledocholithiasis
-ERCP 06/21 with stone identified and removed and biliary sphincterotomy performed
-GI eval appreciated
Transaminitis
� Secondary to choledocholithiasis, ERCP performed 06/21
� Resolving after ERCP
GHAZAL -resolved.
-Initial creat 1.6 since improved
-CKD III ruled out with resolution GHAZAL
-monitor
DM 2/diabetic neuropathy
-Uncontrolled, hemoglobin A1c 10.8% this admission
-DM RECREATION WORKER eval appreciated
-Currently Lantus 7 units twice daily and sliding scale insulin
-Farxiga resumed
-Gabapentin 600 mg daily on hold d/t Encephalopathy as above
Constipation
cont Miralax and Sennosides, consider Lactulose if no improvement
Mild Hyponatremia
monitor
Hyperlipidemia
-Continue statin
Nicotine dependence
DVT prophylaxis SCDs
Full code
Dispo -eventual discharge to acute rehab once cleared by cardiology and vascular surgery.
Anticipated Discharge: > 48 hours
Subjective/Interval History
-
Date of Service: July 11, 2024
Patient seen and examined. No complaints.
Objective Data
-
Labs:
Laboratory Results
07/10/24 07/11/24 07/11/24
21:50 03:50 04:22
APTT 34.4 Cancelled 90.9 H
Sodium 140
Potassium 3.6
Chloride 103
Carbon Dioxide 34 H
BUN 19
Creatinine 1.0
Glucose 149 H
Calcium 8.0 L
07/11/24
11:10
APTT Pending
Sodium
Potassium
Chloride
Carbon Dioxide
BUN
Creatinine
Glucose
Calcium
Vital Signs:
Vital Signs
Temp Pulse Resp BP Pulse Ox
97.9 F 65 15 153/66 98
07/11/24 07:00 07/11/24 06:00 07/11/24 06:00 07/11/24 06:00 07/11/24 06:00
I&O
07/10/24 07/11/24 07/12/24
06:59 06:59 06:59
Intake Total 1225 / 1225 765 / 765
Output Total 1650 / 1650 820 / 820
Balance -425 / -425 -55 / -55
Review of Systems
-
History Source: Patient
All other systems: Reviewed and negative
[2024-07-11] MEDS: PACERONE 200 MG PO (08:10)
[2024-07-11] MEDS: ALDACTONE 25 MG PO (08:10)
[2024-07-11] MEDS: LASIX 40 MG IV ×2 (08:10→17:27)
[2024-07-11] MEDS: FARXIGA 10 MG PO (08:10)
[2024-07-11] MEDS: PROTONIX 40 MG PO (08:10)
[2024-07-11] MEDS: COREG 12.5 MG PO ×2 (08:10→21:31)
[2024-07-11] MEDS: ENTRESTO 49 MG/51 MG 1 TAB PO ×2 (08:10→21:30)
[2024-07-11] MEDS: SENOKOT 17.2 MG PO ×2 (08:10→21:35)
[2024-07-11] MEDS: NOVOLOG FLEXPEN-LOW RESISTANCE 1 UNITS SC ×2 (08:11→17:25)
[2024-07-11] MEDS: LOW STRENGTH ASPIRIN 81 MG PO (08:11)
[2024-07-11] MEDS: LANTUS 0.08 UNITS SC ×2 (08:11→21:35)
--- NOTE | 2024-07-11 08:30 | PTCARENOTE ---
Patient received from retail shift leader. Patient resting comfortably in bed. AAOx1 mostly to self, VSS. No events noted overnight. No complaints of pain at this time. Currently on 1900 units/hr Heparin gtt, PTT due to be drawn, one already in range.
Patient ordered for abdominal CT with contrast. Continuing ABX and diuretics. Wound care to be done foot. Vascular checks Q4. Call dillard in reach.
--- NOTE | 2024-07-11 08:56 | W.PN.ID1 ---
Date of Service
Date of Service: July 11, 2024
Today's Communication
- note plans for possible CABG
- Continue cefazolin 2g IV q8 (day of of abx, 06/22-08/02)
Assessment / Plan
MSSA Bacteremia - cleared
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
PEA/v fib arrest 06/24
Large left retroperitoneal hematoma with blood-loss anemia
CVA
Encephalopathy - resolving
Dm2; uncontrolled
Choledocholithiasis s/p ERCP with 06/21 - resolved
- 06/21 and 06/22 blood cultures finalized negative
- Toe swab cx MSSA. Toe amp path: viable margin with focal osteomyelitis
- note plans for possible CABG
- Continue cefazolin 2g IV q8 (day of abx, 06/22-08/02)
- recommend completing 6 weeks course of IV antibiotics with AICD placement afterwards, alternatively will consider suppression
- has PICC line, note he has recently removed a midline
Possible cholesterol emboli
- scattered eschars on the r forearm, nontender with mild blanching, surrounding erythema; lesions stable
- follow clinically
����������������������������������������������������������
Chief Complaint
-: Other (mssa bacteremia, possible endocarditis)
Subjective / Review of Systems
afebrile
bp stable
Vital Signs / Physical Exam
Vital Signs
Vital Signs
Temp Pulse Resp BP Pulse Ox
97.9 F 66 15 145/86 98
07/11/24 07:00 07/11/24 08:10 07/11/24 06:00 07/11/24 08:10 07/11/24 06:00
Physical Exam
Constitutional: No Acute Distress
Cardiovascular: Regular Rate and S1/S2; Negative Murmur or Rub
Pulmonary: Clear and Symmetric; Negative Wheezes or Rales
Gastrointestinal: Soft, Non Tender, Non Distended and Normal Bowel Sounds
Skin: Warm, Dry and Rash (scattered eschars on the r forearm, nontender with mild blanching, surrounding erythema; patient/ believe lesions stable, there throughout hospitalization ); Negative Jaundice
Objective Data
Lab Data
Lab Results
07/10/24 05:16
07/11/24 03:50
PT 18.8 Sec (11.4-14.6) H 06/27/24 03:27
INR 1.52 06/27/24 03:27
APTT 90.9 Sec (23.4-35.0) H 07/11/24 04:22
Estimated Creat Clear 88 ml/min 07/11/24 03:50
Lactic Acid 1.0 mmol/L (0.7-2.0) 06/26/24 08:48
Total Bilirubin 2.8 mg/dl (0.2-1.3) H 07/05/24 03:24
AST 52 U/L (17-59) 07/05/24 03:24
ALT 13 U/L (0-50) 07/05/24 03:24
Alkaline Phosphatase 150 U/L (38-126) H 07/05/24 03:24
Most recent labs reviewed.
Micro Results:
06/22/24 13:23 Blood Culture - Final
Blood/Venous No Growth - Final Report
06/21/24 09:33 Blood Culture - Final
Blood/Venous No Growth - Final Report
06/22/24 14:36 Wound Culture - Final
Abscess S aureus-Methicillin Sensitive
Gram Stain - Final
06/20/24 00:42 Blood Culture - Final
Blood/Venous S aureus-Methicillin Sensitive
Gram Stain - Final
06/20/24 01:59 Blood Culture - Final
Blood/Venous S aureus-Methicillin Sensitive
Gram Stain - Final
06/18/24 16:51 Urine Culture - Final
Urine NO GROWTH
06/18/24 16:11 Influenza Types A & B (HUBER) - Final
Nasal Swab Negative for Influenza A & B, NAAT
Negative results must be combined with clinical observations
and patient history.
Nucleic Acid Amplification test (NAAT)performed on the
[employer] platform.
Imaging:
06/24/2024 ECHO (TTE): Normal LV chamber size. Severely reduced LV systolic function with EF approximately 10 to 15%. Severe global hypokinesis. Mitral valve opens normally, but is noted to have thickened leaflets and mitral annular calcification.
Mild mitral regurgitation. Please see full dictation for additional detail.
06/30/24 Brain MRI: No clear MRI evidence for an acute intracranial abnormality within the significant limitations of extensive motion artifact during this exam.
--- NOTE | 2024-07-11 09:47 | PN.DE.MGMTRT ---
Insulin Management
- -
07/11/2024: Diabetes Management Follow up
63 year old male who presented to ER on 06/18/24 with report of AMS changes, of staring, garbled speech, confusion, and balance difficulty lasting an unclear amount of time. Of note, pt was recently admitted at [facility] for LV thrombus
and HFrEF (on Coumadin).
PMH: NICM, mild MR, HTN, Hypercholesterolemia Renal insufficiency, RLE Cellulitis, nicotine use and IDDM. Prior to admission was taking Levemir 20 units BID, Humalog 5 units AC and Farxiga 10mg daily prior to admission. A1C 10.8%.
Pt was also noted for a chronic nonhealing left foot wound as well as a more acute gangrenous left hallux and associated foot infection. He underwent a partial first ray resection on 06/23.
OR 06/24/24 for RLE percutaneous revascularization. Upon anesthesia induction patient PEA/Vfib arrested and underwent ACLS until ROSC was achieved and procedure was aborted.
07/10 cardiac cath - significant multivessel CAD, R & L elevated filling pressures. For CT surgery evaluation.
Patient awake, in bed, restless, offers no complaints, unable to interview.
Information obtained from chart review and patients nurse. Cr 1, eGFR >60 today.
Speech eval on 07/02, recommend minced moist diet, patient consuming ~ 80 - 100% of meal.
Glucose range 2 107 to 278, pt receiving Lantus 8 units BID with low corrective insulin AC and Farxiga 10 mg daily.
Pre lunch glucose 210, will resume AC novolog 4 units now and AC.
Discussed with nurse.
Will cont to follow.
Diabetes History
- -
Type of Diabetes: 2 requiring insulin
Pre-Admission Diabetes Regimen
07/11/24
03:50
Creatinine 1.0
Lab Results
Hemoglobin A1c 10.8 % (4.0-5.6) H 06/19/24 05:43
Insulin Pump Settings
IP Diabetes Regimen
07/10/24 07/10/24 07/10/24
12:15 17:01 21:09
Glucose
POC Glucose 151 H 107 H 278 H
07/11/24 07/11/24
03:50 07:35
Glucose 149 H
POC Glucose 157 H
Meal type: Dinner
Meal type: Dinner
Meal type: Breakfast
Amount consumed: 80%
Amount consumed: 100%
Patient Education
[2024-07-11] MEDS: HEPARIN 25000 UNITS/250 ML IV ×2 (11:56→21:27)
[2024-07-11 12:06] LABS: Glucose - Point of Care 210 mg/dl (70-99)
[2024-07-11 12:20] LABS: APTT 104.4 Sec (23.4-35.0)
[2024-07-11] MEDS: MIRALAX PO (12:59)
[2024-07-11] MEDS: NOVOLOG FLEXPEN-LOW RESISTANCE 2 UNITS SC (13:10)
[2024-07-11] MEDS: NOVOLOG FLEXPEN 4 UNITS SC ×2 (13:11→17:26)
--- NOTE | 2024-07-11 14:21 | W.PN.CARDCBS ---
Addendum entered and electronically signed by Fernanda Sutton MD 07/11/24 23:16:
I saw and examined the patient.
The Hand Lacer's note was reviewed and I agree with the note.
Comment: Pt with ongoing confusion. Thinks its night time and he fell getting out of bed going to bathroom.
Vital signs and labs reviewed. On exam pt is A+O x 1-2, RR, Normal S1 and S2, +JVD, No m/r/g, Abd soft, NT, ND +BS, Bibasilar rales, warm ext with boots on.
Recommendations:
1. Ongoing discussions with CT surgery and family in regards to best approach to managing MV CAD. Offline discussions have been had briefly with concerns given significant comorbid conditions and recent arrest, Left rP bleed, and associated risk of
CABG vs multivessel PCI with attempt of intervening on LAD AUTOMOTIVE SERVICES MANAGER.
2. Discussed extensively bedside with patient and potential options and mentioned that plan is to discuss with everyone at structural heart meeting on 07/12/24. Based on teams decision we will discuss further and consider intervention early next
week. Depending on plan for CABG versus PCI, would plan to load with Plavix (if PCI) to make sure Hgb remains stable with RP bleed
3. Cont IV diuresis and optimization of GDMT for ischemic CM
4. Cont to monitor QTC while on amio, stable for now.
5. On heparin gtt for now. Hgb stable.
6. Aggressive management of risk factors.
7. PT/OT, ambulation/OOB as allowed by his wounds.
Fernanda Sutton MD, [facility], [facility]
Total Time spent: 51mins
Original Note:
Today's Communication / Plan
-
CT surgery evaluating
Cont amiodarone, QTc stable
Cont Heparin gtt, Hgb stable
Impression / Plan
-
PCP: Dr. Sherwood
Cardiology: Dr. Ny, last seen 06/2022
Impression:
Intraoperative PEA/ventricular fibrillation arrest 06/24/2024
Admitted with confusion and acute HFrEF 06/18/24
Tiny nonhemorrhagic acute/subacute infarct in the right periventricular white matter/centrum semiovale region by MRI 06/19/2024
Recent admission to [facility] for acute HF and foot wound 06/06/24 until 06/12/24
Hypotension
Acute HFrEF
CM EF 15% by echo at [facility] 06/07/24
h/o improved NICM EF 25% by echo 03/2018 and then improved to 40% by echo 06/2022
CAD
Nonobstructive CAD by cath 2017
MV CAD including 100% AUTOMOTIVE SERVICES MANAGER mid LAD, Diag-2 is large vessel with serial up to 90% stenosis in the upper branch and 80% stenosis in the lower branch,, ramus 80% mid vessel, circumflex 40 to 50% mid vessel, OM�160 to 70% mid vessel, ostial RPDA 70 to
75%, mid RPDA 70% stenosis, RPL is large with ostial eccentric 75 to 80% stenosis by cardiac cath 07/10/2024
Medication noncompliance
Newly diagnosed LV thrombus
1.5 x 1.2 cm LV apical clot on echo at [facility] 06/07/24
Chronic warfarin managed by [facility]
started for LV clot 06/07/24
Supratherapeutic INR on admission
Hyponatremia
GHAZAL on CKD 3a
Elevated LFTs
Chews tobacco
Unwitnessed fall 06/20/2024
tele reviewed and no arrhythmia
Hyperglycemia
Anemia
Left retroperitoneal hematoma by CT 06/30/24
Echo 05/30/2024: [facility] [address] study, EF 15 to 20%, severe global hypokinesis and septal dyskinesis, small and organized thrombus in the LV apex measuring 1.5 x 1.2 cm, grade 3 diastolic dysfunction, at least mildly dilated RV with reduced
systolic function, mild to moderate MR, mild pericardial effusion seen posteriorly without evidence of tamponade
Echo 06/20/24 with IV echo contrast: LV ejection fraction severely reduced, 15-20% with global hypokinesis. Dilated, hypokinetic right ventricle. Biatrial dilatation. Mild MR. Mild to moderate TR. Estimated pulmonary artery systolic pressure
50-55 mmHg. Small pericardial effusion without evidence of hemodynamic compromise. No LV apical thrombus
Plan:
-Patient was found to have MV CAD on cardiac cath 07/10/2024 and case is being reviewed with CT surgery team
-CT angio chest performed on 07/11/2024 and results pending
-Remains on heparin gtt, renewed by me on 07/11/2024. Repeat CBC in AM, Hgb has been stable since heparin restarted on 07/08/2024
-Patient with large left-sided retroperitoneal hematoma 06/30/24 and received 10 units PRBCs and transfusion
-Also tolerating aspirin 81 mg daily
-Patient being managed as ICM with EF 15 to 20% by echo 06/20/2024. Patient previously diagnosed with NICM and EF 25% in 2018 that improved with medical therapy to 40% by last known echo prior to this admission in 06/2022 following correction from
his longtime job in the fall the patient stopped taking all of his medications for unclear reasons and EF reduced at 15% by echo at [facility] 05/30/2024
-PCWP 25 mmHg by RHC on 07/10/2024. Patient had been diuresed earlier this admission and then diuresis stopped for hypotension. Currently ordered Lasix 40 mg IV BID. Patient was taking Lasix 40 mg PO BID prior to admission.
-Outpatient dose of Coreg 12.5 mg BID has been continued
-Outpatient dose of Entresto lowered earlier this admission due to hypotension, but BP has improved and dose increased to 49/51 mg BID as of 07/09/24
-Outpatient dose of spironolactone 25 mg daily has been continued
-Outpatient dose of Farxiga 10 mg daily has been continued
-Patient had intraoperative PEA/VF arrest 06/24/24. Patient had been given propofol and fentanyl and had undergone vascular access, but no other instrumentation at the time of his event. Patient had CPR with 4 shocks, magnesium IV, amiodarone 300 mg
and then 150 mg and then ROSC. He then underwent TTM and was warmed on 06/26/2024.
-Previous plans for AICD and LifeVest pending possible coronary revascularization. AICD was going to be deferred for at least 6 weeks to allow for antibiotics following MSSA bacteremia this admission.
-No recurrence of ventricular arrhythmia, but he was loaded with 5+ grams amiodarone PO and has now transitioned to 200 mg daily. QTc 495 ms by ECG on 07/11/2024 as reviewed by me.
-Patient also with new LV clot by echo at [facility] 05/30/2024. Echo repeated with [facility] at 06/20/24 and no evidence of LV apical thrombus.
-Patient then had MRI brain 06/20/24 that showed a tiny nonhemorrhagic acute/subacute infarct in the right periventricular white matter/centrum semiovale region. Neurology saw the patient and felt that this may have been an incidental finding as the
patient was felt to be cognitively intact without functional decline, but had an episode of confusion with garbled speech on admission.
-When patient had LV clot identified at [facility] he was started on warfarin. [facility] manages INRs that are drawn at [facility] and the goal is 2-3.
-Reviewed cath with patient and daughter, Bernadine, sitting bedside 07/11/24.
Additional summary of admission thus far: Admitted with change in mental status and found to have small nonhemorrhagic right hemispheric CVA, recently hospitalized with LV thrombus and acute and chronic HFrEF with left lower extremity wound
infection. Also with choledocholithiasis, status post ERCP and sphincterotomy with stone extraction 06/21/24. Underwent debridement of left foot wound and partial first ray amputation with podiatry on 06/23/24. Then taken to the vascular OR on
06/24/24 for peripheral angiogram and possible intervention and upon induction of anesthesia had pulseless electrical activity degenerating into VF requiring ACLS and ultimately return of spontaneous circulation. Patient had TTM and was eventually
extubated, but has not recovered neurologically. Patient has also been receiving treatment for acute HFrEF during hospital stay. Patient also noted to have large left retroperitoneal hematoma by CT 06/30/2024 and has received 10 units PRBCs this
admission. Heparin gtt placed on hold 06/30/2024 and has not been resumed as of 07/04/2024. Aspirin restarted 07/08/24. Family agreeable to Life Vest after talking with 07/08/24 and they're looking into [facility] for rehab.
HPI: Patient came to [facility] from home yesterday with confusion and garbled speech and was admitted for acute HF and cardiology has been consulted. Patient is a poor historian and gave me permission to call his daughter. Also reviewed 67 pages of
records from recent [facility] admission. Patient had NICM diagnosed in 2018 and with GDMT his EF improved to 40% by last echo at in 06/2022. Patient then stopped coming to cardiology appts at , but reportedly did not start following elsewhere.
Patient then retired and stopped taking his medications on a regular schedule despite reminders from family. Patient started with LE wounds 02/2024 and following with wound care center and seemed to be improving. Patient then started with a cough
and saw his PCP 05/02/24 and lungs were clear and he was started on promethazine and albuterol. Patient was then admitted to [facility] with SOB 06/06/24 and during that admission was found to have EF down to 15% and he had a new LV clot and was started
on warfarin. Patient was also d/c'd to home on Coreg, Entresto and spironolactone which are meds he had been on when he was last seen in the cardiology office in 2022. Patient was diuresed with Lasix IV and d/c'd to home on Lasix 40 mg PO BID.
Patient's daughter reports that patient was not taking meds at home and when VN came to see him he had garbled speech and was sent to the ER.
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
Subjective
Date of Service: July 11, 2024
He feels well, denies pain, his daughter Bernadine is bedside, he seems upbeat
Objective
Labs:
07/10/24 05:16
07/11/24 03:50
Labs
Hgb 9.9 g/dL (13.0-18.0) L 07/10/24 05:16
Hct 30.4 % (39.0-52.0) L 07/10/24 05:16
Plt Count 379 10^3/uL (130-400) 07/10/24 05:16
PT 18.8 Sec (11.4-14.6) H 06/27/24 03:27
INR 1.52 06/27/24 03:27
APTT 104.4 Sec (23.4-35.0) H 07/11/24 12:00
Sodium 140 mmol/L (135-145) 07/11/24 03:50
Potassium 3.6 mmol/L (3.5-5.1) 07/11/24 03:50
BUN 19 mg/dl (9-20) 07/11/24 03:50
Creatinine 1.0 mg/dL (0.7-1.3) 07/11/24 03:50
Glucose 149 mg/dl (70-99) H 07/11/24 03:50
Vital Signs and I&O:
Vital Signs
Temp Pulse Resp BP Pulse Ox
98.2 F 66 15 145/86 95
07/11/24 11:26 07/11/24 08:10 07/11/24 06:00 07/11/24 08:10 07/11/24 09:11
Vital Signs
Temp Pulse Resp BP Pulse Ox
98.2 F 66 15 145/86 95
07/11/24 11:26 07/11/24 08:10 07/11/24 06:00 07/11/24 08:10 07/11/24 09:11
Intake & Output
07/09/24 07/10/24 07/11/24 07/12/24
06:59 06:59 06:59 06:59
Intake Total 480 / 480 1225 / 1225 765 / 765
Output Total 150 / 150 1650 / 1650 820 / 820
Balance 330 / 330 -425 / -425 -55 / -55
Physical Exam
Physical Exam
GEN: NAD. Awake, alert and pleasant
HEENT: MMM
LUNGS: RA. No audible wheeze
CV: SR on tele
ABD: ND
EXT: No edema.
--- NOTE | 2024-07-11 16:53 | CM ---
Addendum entered by Avril Simons RN 07/11/24 17:09:
Patient accepted by Carl in [facility].
Original Note:
Patient with Dx PEA/Vfib arrest, Left retroperitoneal hematoma, Acute stroke, HF, Left hallux gangrene s/p partial amputation. Per cardiology; multivessel CAD on cardiac cath 07/10, CT surgery evaluating for possible CABG. Per ID, possible
endocarditis and osteo first ray left foot. CT Angio chest today. Room air. PICC. Receiving IV Abx, IV Lasix, Heparin gtt. Dysphagia diet. Per nurse assessment; confused, restless, forgetful. PT recommends ACUTE VS SNF. OT recommends acute
rehab. Seen by wound care nurse.
Physiatry Consult 06/28; discharge destination TBD.
Physiatry Update 07/09; recommend additional imaging, needs AR with Lifevest.
New script received today from Dr Juan for cefazolin with end date 08/02, prior script end date 08/01. Updated message from MD: Please use the previous script.
Plan probable [facility] when medically ready.
[2024-07-11 17:29] LABS: Glucose - Point of Care 188 mg/dl (70-99)
--- NOTE | 2024-07-11 20:03 | PTCARENOTE ---
Cannot verify accuracy of vital signs from 0700 until 1800.
[2024-07-11 21:34] LABS: Glucose - Point of Care 191 mg/dl (70-99)
--- NOTE | 2024-07-11 21:55 | W.PN.UPDATE ---
Update Note
Progress Note Update
RN reports staff found patient sitting with right leg crossed over left leg on the floor, head leaning against the side rails. Patient is Ox3, forgetful, PERRLA, speech clear, B/L extremities equal strength, Lower extremity L>R, able to follow
commands. States he does not remember how he ended up on the floor, denies hitting his head. States he has pain in his right hip (hx of right hip pain), unable to move it voluntarily as it causes pain. Minimal pain with Passive ROM. no new bruises,
cuts, edema or redness noted GCS 14
will order labs, Right hip xray, CT head as patient is on heparin drip and a poor historian.
Fall precautions addressed.
made aware.
CT Head resulted, Dr. Michelle suggest LP. Neurologist made aware. no new orders at present. stable VS, Afebrile
[2024-07-11 22:10] LABS: Hematocrit 30.5 % (39.0-52.0); Hemoglobin 10.2 g/dL (13.0-18.0); Mean Corp Hgb Conc. 33.4 g/dL (33.0-37.0); Mean Corpuscular Hgb 30.4 pg (27.0-31.0); Mean Corpuscular Volume 90.8 fL (80.0-94.0); Platelet Count 358 10^3/uL (130-400); Red Blood Cell Count 3.36 10^6/uL (4.70-6.10); Red Cell Dist. Width 17.2 % (11.5-14.5); White Blood Cell Count 7.3 10^3/uL (4.8-10.8)
--- NOTE | 2024-07-11 22:22 | PTCARENOTE ---
Around 2100 patient found sitting on floor leaning against the side of the bed with bed alarm sounding. Pt reported he did not hit his head. Reports pain to right hip. Pt placed back to bed using Ronn lift. cleaned for incont urine in diaper. WV
intact. Small abrasion noted to right knee; cleansed with saline and dressed with mepliex foam. CHIP SEPARATOR Robbie and Iron Erector Leesa made aware. CHIP SEPARATOR at bedside to assess. Neuro checks in place. RLE very weak. left pupil nonreactive. XR and CT
ordered. pt very apologetic, states he doesnt remember where he was going.
stat labs sent. pt able to swallow his pills whole with water. bed alarm set. call dillard within reach.
[2024-07-11 22:28] LABS: Blood Urea Nitrogen 24 mg/dl (9-20); Carbon Dioxide 30 mmol/L (22-30); Chloride 100 mmol/L (98-107); Estimated Creatinine Clearance 80 ml/min; Glucose 209 mg/dl (70-99); Potassium 4.1 mmol/L (3.5-5.1); Sodium 135 mmol/L (135-145); eGFR > 60.00
--- NOTE | 2024-07-11 23:54 | PTCARENOTE ---
Spoke with Dr. Freed about CT result. Reported to PAMELA Avalos.
[2024-07-12] VITALS (14 sets, daily range): BP systolic 102–176; BP diastolic 71–109; PULSE 71; O2SAT 100; BMI 22.5
--- NOTE | 2024-07-12 01:54 | PTCARENOTE ---
Addendum entered by Wilda Sparks RN 07/12/24 02:02:
2 minutes after placing mitts, pt setting off the bed alarm, attempting to get up again. pt removed mitts. REGIONAL DEDICATED TRUCK DRIVER aware and ordered wrist restraints, as mitts were unsuccessful. VAT at bedside to place peripheral IV for heparin gtt to restart.
Original Note:
Patient found with PICC line removed, tele wires removed, gown removed. No bleeding. no pain. confused. attempting to get out of bed. REGIONAL DEDICATED TRUCK DRIVER Hephziba aware. Bilateral mitts applied. VAT paged.
--- NOTE | 2024-07-12 02:31 | VATNOTE ---
PT REMOVED PICC PER PICC PROCEDURE DATA. TCL OF 45CM RECOVERED.
[2024-07-12] MEDS: ANCEF 10 IV ×3 (05:12→22:34)
[2024-07-12 05:40] LABS: Hematocrit 32.9 % (39.0-52.0); Mean Corp Hgb Conc. 33.4 g/dL (33.0-37.0); Mean Corpuscular Hgb 30.4 pg (27.0-31.0); Mean Corpuscular Volume 90.9 fL (80.0-94.0); Mean Platelet Volume 10.3 fL (7.4-10.4); Platelet Count 349 10^3/uL (130-400); Red Blood Cell Count 3.62 10^6/uL (4.70-6.10); Red Cell Dist. Width 17.3 % (11.5-14.5); White Blood Cell Count 8.1 10^3/uL (4.8-10.8)
[2024-07-12 05:53] LABS: APTT 99.1 Sec (23.4-35.0)
--- NOTE | 2024-07-12 07:40 | W.PN.ID1 ---
Date of Service
Date of Service: July 12, 2024
Today's Communication
Continue cefazolin.
Assessment / Plan
MSSA Bacteremia - cleared
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
PEA/v fib arrest 06/24
Large left retroperitoneal hematoma with blood-loss anemia
CVA
Encephalopathy - resolving
Dm2; uncontrolled
Choledocholithiasis s/p ERCP with 06/21 - resolved
- 06/21 and 06/22 blood cultures finalized negative
- Toe swab cx MSSA. Toe amp path: viable margin with focal osteomyelitis
- note plans for possible CABG
- Continue cefazolin 2g IV q8 (day #20 of 42 of abx, 06/22-08/02)
- recommend completing 6 weeks course of IV antibiotics with AICD placement afterwards, alternatively will consider suppression
- has PICC line, note he has recently removed a midline
Possible cholesterol emboli
- scattered eschars on the r forearm, nontender with mild blanching, surrounding erythema; lesions stable
- follow clinically
����������������������������������������������������������
Chief Complaint
-: Other (mssa bacteremia, possible endocarditis)
Subjective / Review of Systems
Review of Systems: No Fever and No Chills
Vital Signs / Physical Exam
Vital Signs
Vital Signs
Temp Pulse Resp BP Pulse Ox
98.7 F 65 10 162/86 98
07/12/24 02:41 07/12/24 06:00 07/12/24 02:14 07/12/24 06:00 07/12/24 06:00
Physical Exam
Constitutional: No Acute Distress
Cardiovascular: Regular Rate and S1/S2; Negative Murmur or Rub
Pulmonary: Clear and Symmetric; Negative Wheezes or Rales
Gastrointestinal: Soft, Non Tender, Non Distended and Normal Bowel Sounds
Skin: Warm, Dry and Rash (scattered eschars on the r forearm, nontender with mild blanching, surrounding erythema; ); Negative Jaundice
Wound: Other (Left hallux amp site with VAC in place.)
Neurological: Awake
Psychological: Calm
Objective Data
Lab Data
Lab Results
07/12/24 05:10
07/11/24 21:59
PT 18.8 Sec (11.4-14.6) H 06/27/24 03:27
INR 1.52 06/27/24 03:27
APTT 99.1 Sec (23.4-35.0) H 07/12/24 05:10
Estimated Creat Clear 80 ml/min 07/11/24 21:59
Lactic Acid 1.0 mmol/L (0.7-2.0) 06/26/24 08:48
Total Bilirubin 2.8 mg/dl (0.2-1.3) H 07/05/24 03:24
AST 52 U/L (17-59) 07/05/24 03:24
ALT 13 U/L (0-50) 07/05/24 03:24
Alkaline Phosphatase 150 U/L (38-126) H 07/05/24 03:24
Most recent labs reviewed.
Micro Results:
06/22/24 13:23 Blood Culture - Final
Blood/Venous No Growth - Final Report
06/21/24 09:33 Blood Culture - Final
Blood/Venous No Growth - Final Report
06/22/24 14:36 Wound Culture - Final
Abscess S aureus-Methicillin Sensitive
Gram Stain - Final
06/20/24 00:42 Blood Culture - Final
Blood/Venous S aureus-Methicillin Sensitive
Gram Stain - Final
06/20/24 01:59 Blood Culture - Final
Blood/Venous S aureus-Methicillin Sensitive
Gram Stain - Final
06/18/24 16:51 Urine Culture - Final
Urine NO GROWTH
06/18/24 16:11 Influenza Types A & B (HUBER) - Final
Nasal Swab Negative for Influenza A & B, NAAT
Negative results must be combined with clinical observations
and patient history.
Nucleic Acid Amplification test (NAAT)performed on the
[employer] platform.
Imaging:
06/24/2024 ECHO (TTE): Normal LV chamber size. Severely reduced LV systolic function with EF approximately 10 to 15%. Severe global hypokinesis. Mitral valve opens normally, but is noted to have thickened leaflets and mitral annular calcification.
Mild mitral regurgitation. Please see full dictation for additional detail.
06/30/24 Brain MRI: No clear MRI evidence for an acute intracranial abnormality within the significant limitations of extensive motion artifact during this exam.
[2024-07-12 07:42] LABS: Glucose - Point of Care 166 mg/dl (70-99)
--- NOTE | 2024-07-12 08:20 | PTCARENOTE ---
Patient received from material handler 2nd shift. Patient resting comfortably in bed. AAOx1, VSS. Patient with fall overnight from bed, CT was done. Patient also ripped out PICC line and placed in 2 point restraints. Will attempt to take of restraints during
the day. Complaints of right hip pain, see MAR. Remains in range on Heparin gtt @ 1900 units/hr, to be bridged once a plan has been made. Wound vac was placed on surgical site yesterday where left great toe was amputated. No tests scheduled at
this time. Call dillard in reach.
--- NOTE | 2024-07-12 08:40 | W.PN.UPDATE ---
Update Note
Progress Note Update
MDT discussion this morning in our high risk conference with consensus that best course of management at this time is GDMT with surveillance of his ischemic CM. Should he develop an ACS or anginal symptoms, then PCI evaluation for high risk stenting
first. Once he has recovered from his acute issues, we can discuss surgical revascularization. CT Surgery will sign off, cardiology/IC to manage at this time.
--- NOTE | 2024-07-12 08:55 | PN.DE.MGMTRT ---
Insulin Management
- -
07/12/2024: Diabetes Management Follow up
63 year old male who presented to ER on 06/18/24 with report of AMS changes, of staring, garbled speech, confusion, and balance difficulty lasting an unclear amount of time. Of note, pt was recently admitted at [facility] for LV thrombus
and HFrEF (on Coumadin).
PMH: NICM, mild MR, HTN, Hypercholesterolemia Renal insufficiency, RLE Cellulitis, nicotine use and IDDM. Prior to admission was taking Levemir 20 units BID, Humalog 5 units AC and Farxiga 10mg daily prior to admission. A1C 10.8%.
Pt was also noted for a chronic nonhealing left foot wound as well as a more acute gangrenous left hallux and associated foot infection. He underwent a partial first ray resection on 06/23.
OR 06/24/24 for RLE percutaneous revascularization. Upon anesthesia induction patient PEA/Vfib arrested and underwent ACLS until ROSC was achieved and procedure was aborted.
07/10 cardiac cath - significant multivessel CAD, R & L elevated filling pressures. For CT surgery evaluation.
Patient awake, resting in bed, alert, oriented to place and year, offers no complaints, able to discuss diabetes care plan.
Cr 1.1 , eGFR >60 today. Speech eval on 07/02, recommend minced moist diet, patient consuming ~ 80 - 100% of meal.
Pt receiving Lantus 8 units BID with low corrective insulin AC and Farxiga 10 mg daily.
07/11 premeal glucose range was 157 to 210, requiring 1-2 units of corrective insulin with meals.
Will increase AC NovoLog to 6 units.
HS glucose was 191, received Lantus 8 units, FBG 166 this AM. Will increase Lantus to 10 units BID
Discussed with nurse. Will cont to follow.
Diabetes History
- -
Type of Diabetes: 2 requiring insulin
Pre-Admission Diabetes Regimen
07/11/24
21:59
Creatinine 1.1
Lab Results
Hemoglobin A1c 10.8 % (4.0-5.6) H 06/19/24 05:43
Insulin Pump Settings
IP Diabetes Regimen
07/11/24 07/11/24 07/11/24
11:54 17:17 21:22
Glucose
POC Glucose 210 H 188 H 191 H
07/11/24 07/12/24
21:59 07:27
Glucose 209 H
POC Glucose 166 H
Patient Education
[2024-07-12] MEDS: PACERONE 200 MG PO (09:11)
[2024-07-12] MEDS: ENTRESTO 49 MG/51 MG 1 TAB PO ×2 (09:11→19:14)
[2024-07-12] MEDS: ALDACTONE 25 MG PO (09:11)
[2024-07-12] MEDS: COREG 12.5 MG PO ×2 (09:11→19:14)
[2024-07-12] MEDS: PROTONIX 40 MG PO (09:11)
[2024-07-12] MEDS: FARXIGA 10 MG PO (09:11)
[2024-07-12] MEDS: SENOKOT 17.2 MG PO ×2 (09:11→19:14)
[2024-07-12] MEDS: LOW STRENGTH ASPIRIN 81 MG PO (09:11)
[2024-07-12] MEDS: NOVOLOG FLEXPEN 4 UNITS SC (09:12)
[2024-07-12] MEDS: LASIX 40 MG IV (09:12)
[2024-07-12] MEDS: MIRALAX 17 GRAMS PO (09:12)
[2024-07-12] MEDS: NOVOLOG FLEXPEN-LOW RESISTANCE 1 UNITS SC (09:12)
[2024-07-12] MEDS: LANTUS 0.08 UNITS SC (09:45)
[2024-07-12] MEDS: TYLENOL 1000 MG PO (09:51)
--- NOTE | 2024-07-12 10:06 | W.PN.CARDCBS ---
Addendum entered and electronically signed by Bola Hernandez MD 07/12/24 11:19:
I saw and examined the patient.
The [employer] or PA's note was reviewed and I agree with the note.
Comment: General: Awake but confused
Neck: Supple, no JVD, HJR, carotids +2 B/L, no bruits bilaterally.
Heart: Non displaced PMI, RRR, no murmurs, No S3, S4, no rubs.
Lungs: Clear to auscultation bilaterally, no wheeze, rhonchi, rubs bilaterally,
normal expiratory phase.
Extremities: No clubbing, cyanosis or edema bilaterally.
Neuro: Awake but confused
He is not an ideal candidate for ICD given agitation and also may not be able to tolerate LifeVest. We can reconsider prior to discharge. Will start Eliquis in place of Coumadin which he was on in the past for left ventricular thrombus and
discontinue heparin.
Original Note:
Today's Communication / Plan
-
GDMT with Coreg, Entresto, Aldactone, Farxiga and spironolactone
Continue amiodarone
No CT surgery planned; continue medical management of CAD
Eventual consideration of LifeVest which can be arranged closer to discharge
Eventually will need resumption of oral anticoagulation Coumadin versus Eliquis
Impression / Plan
-
PCP: Dr. Sherwood
Cardiology: Dr. Ny, last seen 06/2022
Impression:
Intraoperative PEA/ventricular fibrillation arrest 06/24/2024
Admitted with confusion and acute HFrEF 06/18/24
Tiny nonhemorrhagic acute/subacute infarct in the right periventricular white matter/centrum semiovale region by MRI 06/19/2024
Recent admission to [facility] for acute HF and foot wound 06/06/24 until 06/12/24
Hypotension
Acute HFrEF
CM EF 15% by echo at [facility] 06/07/24
h/o improved NICM EF 25% by echo 03/2018 and then improved to 40% by echo 06/2022
CAD
Nonobstructive CAD by cath 2018
MV CAD including 100% CORRESPONDENCE REPRESENTATIVE mid LAD, Diag-2 is large vessel with serial up to 90% stenosis in the upper branch and 80% stenosis in the lower branch,, ramus 80% mid vessel, circumflex 40 to 50% mid vessel, OM�160 to 70% mid vessel, ostial RPDA 70 to
75%, mid RPDA 70% stenosis, RPL is large with ostial eccentric 75 to 80% stenosis by cardiac cath 07/10/2024
Medication noncompliance
Newly diagnosed LV thrombus
1.5 x 1.2 cm LV apical clot on echo at [facility] 06/07/24
Chronic warfarin managed by [facility]
started for LV clot 06/07/24
Supratherapeutic INR on admission
Hyponatremia
GHAZAL on CKD 3a
Elevated LFTs
Chews tobacco
Unwitnessed fall 06/20/2024
tele reviewed and no arrhythmia
Hyperglycemia
Anemia
Left retroperitoneal hematoma by CT 06/30/24
Echo 05/30/2024: [facility] study, EF 15 to 20%, severe global hypokinesis and septal dyskinesis, small and organized thrombus in the LV apex measuring 1.5 x 1.2 cm, grade 3 diastolic dysfunction, at least mildly dilated RV with reduced
systolic function, mild to moderate MR, mild pericardial effusion seen posteriorly without evidence of tamponade
Echo 06/20/24 with IV echo contrast: LV ejection fraction severely reduced, 15-20% with global hypokinesis. Dilated, hypokinetic right ventricle. Biatrial dilatation. Mild MR. Mild to moderate TR. Estimated pulmonary artery systolic pressure
50-55 mmHg. Small pericardial effusion without evidence of hemodynamic compromise. No LV apical thrombus
Cardiac catheterization 07/10/2024: LM: Mild diffuse plaque. LAD: 100% CORRESPONDENCE REPRESENTATIVE in the midportion with robust right to left and left to left collaterals. Diagonal 2 to serial stenosis up to 90% upper branch followed by 80% lower branch. Ramus: 80% mid
stenosis. Left circumflex: Mid 40 to 50% stenosis. OM1 60 to 70% mid stenosis. RCA: Mild diffuse plaque. Ostial RPDA 70 to 75%, mid 70%. RPL ostial 75 to 80% stenosis followed by 50% mid stenosis. Elevated right and left-sided filling pressures
with normal cardiac output. HEMODYNAMICS : (mmHg) RA (m) : 10; RV (s/d,m) : 43/7, 10; PA (s/d, m) : 45/18, 28; PCWP (m) : 25; Cardiac Output : 5.8 L/min; Cardiac Index : 2.73 L/min/m-2; Systemic vascular resistance: 1268 dsc^(-5); Pulmonary vascular
resistance: 0.[address] angio of the chest 07/11/2024: Retroperitoneal hematoma. Small to moderate left pleural effusion with atelectasis. Small to moderate pericardial effusion measuring 17 mm posteriorly and 12 mm anteriorly. Mild increased interstitial markings of
right lung suggesting interstitial fibrosis
Plan:
-Events noted overnight patient found on floor with legs crossed complaining of hip pain. Poor historian and could not give details surrounding why he was on floor. Head CT unremarkable and no bleed. Right hip with no acute fracture.
-Patient was found to have MV CAD on cardiac cath 07/10/2024. Case was discussed by CT surgery team and collaborating providers and patient was felt to be too high risk for surgery at this time.
-CT angio chest performed on 07/11/2024 and results pending
-Remains on heparin gtt, Hgb has been stable, 11.0 since heparin restarted on 07/08/2024; will need eventual transition to oral anticoagulation once no need for surgical or vascular procedures. Discussed with option of Eliquis versus Coumadin.
would be agreeable to start Eliquis. Coumadin was started at [facility] after he was found to have LV thrombus which has resolved on echo 06/20/2024 at
-Patient with large left-sided retroperitoneal hematoma 06/30/24 and received 10 units PRBCs and transfusion
-Also tolerating aspirin 81 mg daily
-Patient being managed as ICM with EF 15 to 20% by echo 06/20/2024. Patient previously diagnosed with NICM and EF 25% in 2018 that improved with medical therapy to 40% by last known echo prior to this admission in 06/2022 following residential from
his longtime job in the fall the patient stopped taking all of his medications for unclear reasons and EF reduced at 15% by echo at [facility] 05/30/2024
-PCWP 25 mmHg by [facility] on 07/10/2024. Patient had been diuresed earlier this admission and then diuresis stopped for hypotension.
-Ongoing diuresis with Lasix 40 mg IV BID. Weight down considerably as much is 50 pounds if bed scale weights are correct. Patient was taking Lasix 40 mg PO BID prior to admission.
-Continue GDMT with carvedilol, Entresto (dose increased to 49/51 mg BID as of 07/09/24), Aldactone 25 mg daily and Farxiga 10 mg daily
-Renal function and electrolytes stable
-Patient had intraoperative PEA/VF arrest 06/24/24. Patient had been given propofol and fentanyl and had undergone vascular access, but no other instrumentation at the time of his event. Patient had CPR with 4 shocks, magnesium IV, amiodarone 300 mg
and then 150 mg and then ROSC. He then underwent TTM and was warmed on 06/26/2024.
-Continue IV antibiotics for MSSA bacteremia per primary service and ID
-Previous plans for AICD and/or LifeVest pending possible coronary revascularization. AICD was going to be deferred for at least 6 weeks to allow for antibiotics following MSSA bacteremia this admission. Will arrange for LifeVest fitting prior to
discharge; Discussed with and she has concerns that he may not tolerate it. Can be readdressed closer to discharge. Patient likely will go to rehab upon discharge
-No recurrence of ventricular arrhythmia, but he was loaded with 5+ grams amiodarone PO and has now transitioned to 200 mg daily. QTc 495 ms by ECG on 07/11/2024 as reviewed by me.
-Patient also with new LV clot by echo at [facility] 05/30/2024. Echo repeated with [facility] at 06/20/24 and no evidence of LV apical thrombus.
-Patient then had MRI brain 06/20/24 that showed a tiny nonhemorrhagic acute/subacute infarct in the right periventricular white matter/centrum semiovale region. Neurology saw the patient and felt that this may have been an incidental finding as the
patient was felt to be cognitively intact without functional decline, but had an episode of confusion with garbled speech on admission.
-When patient had LV clot identified at [facility] he was started on warfarin. [facility] manages INRs that are drawn at [facility] and the goal is 2-3.
-Reviewed cath with patient and daughter, Bernadine, sitting bedside 07/11/24.
Updated patient's over the phone reviewed patient not ideal candidate for CT surgery at this time. Will continue guideline directed medical therapy with consideration of intervention if unstable angina or worsening symptoms. Also discussed
nursing and Dr. Luke
Additional summary of admission thus far: Admitted with change in mental status and found to have small nonhemorrhagic right hemispheric CVA, recently hospitalized with LV thrombus and acute and chronic HFrEF with left lower extremity wound
infection. Also with choledocholithiasis, status post ERCP and sphincterotomy with stone extraction 06/21/24. Underwent debridement of left foot wound and partial first ray amputation with podiatry on 06/23/24. Then taken to the vascular OR on
06/24/24 for peripheral angiogram and possible intervention and upon induction of anesthesia had pulseless electrical activity degenerating into VF requiring ACLS and ultimately return of spontaneous circulation. Patient had TTM and was eventually
extubated, but has not recovered neurologically. Patient has also been receiving treatment for acute HFrEF during hospital stay. Patient also noted to have large left retroperitoneal hematoma by CT 06/30/2024 and has received 10 units PRBCs this
admission. Heparin gtt placed on hold 06/30/2024 and has not been resumed as of 07/04/2024. Aspirin restarted 07/08/24. Family agreeable to Life Vest after talking with 07/08/24 and they're looking into [facility] at for rehab.
HPI: Patient came to [facility] from home yesterday with confusion and garbled speech and was admitted for acute HF and cardiology has been consulted. Patient is a poor historian and gave me permission to call his daughter. Also reviewed 67 pages of
records from recent [facility] admission. Patient had NICM diagnosed in 2018 and with GDMT his EF improved to 40% by last echo at in 06/2022. Patient then stopped coming to cardiology appts at , but reportedly did not start following elsewhere.
Patient then retired and stopped taking his medications on a regular schedule despite reminders from family. Patient started with LE wounds 02/2024 and following with wound care center and seemed to be improving. Patient then started with a cough
and saw his PCP 05/02/24 and lungs were clear and he was started on promethazine and albuterol. Patient was then admitted to [facility] with SOB 06/06/24 and during that admission was found to have EF down to 15% and he had a new LV clot and was started
on warfarin. Patient was also d/c'd to home on Coreg, Entresto and spironolactone which are meds he had been on when he was last seen in the cardiology office in 2022. Patient was diuresed with Lasix IV and d/c'd to home on Lasix 40 mg PO BID.
Patient's daughter reports that patient was not taking meds at home and when VN came to see him he had garbled speech and was sent to the ER.
Progress Note - [place]
Subjective
Date of Service: July 12, 2024
Patient seen and examined. Patient lying in bed. Patient now in restraints as he suffered an unwitnessed fall last night when he got out of bed. He does not recall exact details. Head CT and hip x-ray unremarkable.
Objective
Labs:
07/12/24 05:10
07/11/24 21:59
Labs
Hgb 11.0 g/dL (13.0-18.0) L 07/12/24 05:10
Hct 32.9 % (39.0-52.0) L 07/12/24 05:10
Plt Count 349 10^3/uL (130-400) 07/12/24 05:10
PT 18.8 Sec (11.4-14.6) H 06/27/24 03:27
INR 1.52 06/27/24 03:27
APTT 99.1 Sec (23.4-35.0) H 07/12/24 05:10
Sodium 135 mmol/L (135-145) 07/11/24 21:59
Potassium 4.1 mmol/L (3.5-5.1) 07/11/24 21:59
BUN 24 mg/dl (9-20) H 07/11/24 21:59
Creatinine 1.1 mg/dL (0.7-1.3) 07/11/24 21:59
Glucose 209 mg/dl (70-99) H 07/11/24 21:59
Vital Signs and I&O:
Vital Signs
Temp Pulse Resp BP Pulse Ox
97.8 F 71 10 165/79 95
07/12/24 07:05 07/12/24 09:11 07/12/24 02:14 07/12/24 09:11 07/12/24 10:03
Vital Signs
Temp Pulse Resp BP Pulse Ox
97.8 F 71 10 165/79 95
07/12/24 07:05 07/12/24 09:11 07/12/24 02:14 07/12/24 09:11 07/12/24 10:03
Intake & Output
07/10/24 07/11/24 07/12/24 07/13/24
06:59 06:59 06:59 06:59
Intake Total 1225 / 1225 765 / 765 360 / 360
Output Total 1650 / 1650 820 / 820 2049 / 2049
Balance -425 / -425 -55 / -55 -1690 / -1690
Physical Exam
Physical Exam
GEN: No distress, awake, Ox3, in soft restraints
HEENT: supple, anicteric, mmm
LUNGS: CTA, no wheezes/rales
CV: Reg, S1/S2, 1/6 syst murmur
ABD: soft, BS+, NT/ND
EXT: No edema, clubbing or cyanosis
NEURO: Gross non-focal
SKIN: No rash, warm, dry, pink
[2024-07-12] MEDS: HEPARIN 25000 UNITS/250 ML IV (10:28)
--- NOTE | 2024-07-12 12:03 | W.PN.HOSP.TC ---
Today's Communication/Plan
-
Change Lasix to oral
Vascular surgery follow-up
Transfer to telemetry
Assessment / Plan
Assessment / Plan
Gen-awake, alert, confused, NAD
HEENT-NC, AT, anicteric, clear oral mm
Neck-supple
CV-reg, no M, +S1/S2
Lungs-clear B/L
Abd-soft, NT, ND
Ext-no edema
Musculoskeletal-no cyanosis, clubbing
Skin-warm and dry
Neuro-severe right proximal hip weakness, unable to bend the right knee
Psych-calm, cooperative
Events overnight noted. Nursing staff found patient sitting on the floor with right leg crossed over the left leg. Confused. CT head unremarkable. Hip x-ray negative.
PEA/Vfib arrest -following Anesthesia Induction 06/24/2024
Acute Anoxic Encephalopathy vs Delirium -reportedly confusion is slowly improving but I have no comparison as this is my first week with this patient.
-Underwent 3 rounds of ACLS and 4 defibrillations as per Cardio before ROSC was achieved
-ECHO post-code appreciated EF 10-15% no significant change from prior ECHO 06/20/24
-weaned off pressor support
-TTM completed, mental status improving but not at baseline
-Extubated 06/27, downgraded to IMU
-Brain MRI 06/29/24 noted no acute abn though limited study d/t motion defects
-Cardiology plans on LifeVest prior to discharge. Eventual ICD after completion of IV antibiotics per ID recommendations.
-Low-dose aspirin resumed 07/08
Multivessel CAD -noted on cardiac catheterization 07/10. CT surgery recommending against bypass surgery. Goal-directed medical therapy recommended. Should he develop ACS or anginal symptoms then PCI with high risk stenting recommended.
reported hx LV thrombus
-Dx 2 weeks prior to arrival at [facility], suspect due to severely depressed LVEF
-Started on Coumadin anticoagulation 06/07/2024 for LV apical thrombus
-Now on IV heparin per cardiology.
Left retroperitoneal hematoma:
-Large but stable on repeat imaging 07/01
-Continue holding anticoagulation
-Hemoglobin stable
Acute blood loss anemia
-Secondary to blood loss from procedures and retroperitoneal hematoma
-Status post transfusion 10 units so far this admission
Hemoglobin spontaneously improved, 11.0. Last transfusion was 07/01.
MSSA bacteremia
-Blood cultures from 06/20 positive for MSSA [correction to prior documentation], repeat cultures from 06/22 also positive
-Suspect secondary to left hallux wet gangrene, which itself is suspected due to embolic effect, status post amputation
-Antibiotics now narrowed to cefazolin 2 g IV every 8 hours, antibiotics to be completed 08/02, PICC line placement when discharge plans have been clarified (hopefully to acute rehab)
-Repeat transthoracic echo 06/24 notable for thickened mitral valves
-Appreciate guidance from ID and podiatry
-strict NWB and elevation LLE as per Podiatry
Right lower extremity weakness -likely acute on chronic. Of note patient was discharged from [facility] June 12 using crutches. Has had difficulty lifting his right leg when getting out of a car requiring him to use his arms to lift the
right thigh up. Appreciate neurology input. Differential diagnosis includes pre-existing myopathy and/or superimposed right lumbosacral plexopathy due to right psoas hematoma. Previous CT scan from July 01 demonstrates intramuscular hematomas in
the right psoas and iliacus muscles.
Repeat CT July 10 without contrast demonstrates stability of hematomas. No change.
Left hallux gangrene:
-Suspect secondary to embolism as also caused stroke
-wound cx pos MSSA
-Status post partial amputation in the OR with podiatry 06/23
-Planned for revascularization 06/24 which was aborted d/t PE/Vfib arrest as above
-Continue local wound care, antibiotics with cefazolin
Vascular surgery planning on angiogram and revascularization, timing to be determined. Updated Dr. Orosco, will assess today. Possible angiogram of the lower extremity next week.
Acute stroke - Suspect secondary to cardiac emboli
� Acute/subacute infarct in the right periventricular white matter/centrum semiovale region
� Currently holding anticoagulation due to large left retroperitoneal hematoma
� Neurology consult appreciated
� Carotids unremarkable
-Now tolerating PT/OT, to be reevaluated by physiatry
-Restarted aspirin 81 mg daily
Acute on chronic HFrEF
EF 15-20%
-Cardio eval appreciated
-Discussed with cardiology, okay with changing Lasix back to oral.
-Beta-blockade with Coreg
-Restarted Entresto and spironolactone
Acute urinary retention:
-Orosco discontinued
-Requiring intermittent straight catheterization
-Will monitor urine output and bladder scans
-Renal function stable
Choledocholithiasis
-ERCP 06/21 with stone identified and removed and biliary sphincterotomy performed
-GI eval appreciated
Transaminitis
� Secondary to choledocholithiasis, ERCP performed 06/21
� Resolving after ERCP
GHAZAL -resolved.
-Initial creat 1.6 since improved
-CKD III ruled out with resolution GHAZAL
-monitor
DM 2/diabetic neuropathy
-Uncontrolled, hemoglobin A1c 10.8% this admission
-DM NIPPLE THREADER eval appreciated
-Currently Lantus 7 units twice daily and sliding scale insulin
-Farxiga resumed
-Gabapentin 600 mg daily on hold d/t Encephalopathy as above
Constipation
cont Miralax and Sennosides, consider Lactulose if no improvement
Mild Hyponatremia
monitor
Hyperlipidemia
-Continue statin
Nicotine dependence
DVT prophylaxis SCDs
Full code
Dispo -eventual discharge to acute rehab once cleared by vascular surgery.
Anticipated Discharge: > 48 hours
Subjective/Interval History
-
Date of Service: July 12, 2024
Patient seen and examined. No complaints.
Objective Data
-
Labs:
Laboratory Results
07/12/24
05:10
WBC 8.1
Hgb 11.0 L
Hct 32.9 L
Plt Count 349
APTT 99.1 H
Vital Signs:
Vital Signs
Temp Pulse Resp BP Pulse Ox
98.1 F 71 10 165/79 95
07/12/24 11:05 07/12/24 09:11 07/12/24 02:14 07/12/24 09:11 07/12/24 10:03
I&O
07/11/24 07/12/24 07/13/24
06:59 06:59 06:59
Intake Total 765 / 765 360 / 360
Output Total 820 / 820 2049 / 2049
Balance -55 / -55 -1690 / -1690
Review of Systems
-
History Source: Patient
All other systems: Reviewed and negative
[2024-07-12 12:36] LABS: Glucose - Point of Care 226 mg/dl (70-99)
[2024-07-12] MEDS: NOVOLOG FLEXPEN 6 UNITS SC ×2 (13:35→17:24)
[2024-07-12] MEDS: NOVOLOG FLEXPEN-LOW RESISTANCE 2 UNITS SC (13:36)
[2024-07-12] MEDS: NOVOLOG FLEXPEN SC (13:46)
--- NOTE | 2024-07-12 14:30 | W.PN.SURGUPD ---
Surgical Update
Surgical Update
63 yo M s/p left partial 1st ray amputation packed open
-Patient seen and evaluated at bedside. Dressings removed and wound inspected. No signs of active bleeding or infection at this time, wound bed fibrogranular with no drainage. Applied wound VAC to left foot amputation site
-Will defer further foot surgery until peripheral revascularization attempt to determine further intervention/level of amputation
-Will continue with wound VAC changes 3x per week per wound care instructions
[2024-07-12 17:00] LABS: Glucose - Point of Care 130 mg/dl (70-99)
[2024-07-12] MEDS: LASIX 40 MG PO (17:11)
[2024-07-12] MEDS: NOVOLOG FLEXPEN-LOW RESISTANCE SC (17:24)
--- NOTE | 2024-07-12 17:49 | W.PN.UPDATE ---
Update Note
Progress Note Update
I spoke with the patient at bedside today and spoke to his separately via telephone. I discussed the options for his lower extremity limb preservation strategy with both of them. This would involve a lower extremity arteriogram and possible
endovascular intervention. The technical aspects of this procedure were discussed with him and his again in detail. The benefits and rationale for this approach were discussed with both of them in detail. Operative risks were discussed with
them in detail. I also discussed the option of doing nothing and continuing with local wound care but explained that if his wound does not heal he would be at risk for infection and major amputation.
He and his will discuss this and let us know how they would like to proceed.
Please call with any questions or concerns.
Bharathi Orosco III, MD
[facility]
[phone] (rnbd)
--- NOTE | 2024-07-12 19:18 | PTCARENOTE ---
Report given to Bola HILL [address] [place].
[2024-07-12 22:29] LABS: Glucose - Point of Care 159 mg/dl (70-99)
[2024-07-12] MEDS: FLUSH (NSS) 2 FLUSH IV (22:34)
[2024-07-12] MEDS: LANTUS 0.1 UNITS SC (22:35)
[2024-07-13] MEDS: HEPARIN 25000 UNITS/250 ML IV (00:42)
[2024-07-13 03:39] VITALS: BP 148/79
[2024-07-13] MEDS: ANCEF 10 IV ×3 (05:17→22:51)
[2024-07-13 05:52] VITALS: BMI 21.7
[2024-07-13 06:51] LABS: APTT 99.6 Sec (23.4-35.0)
[2024-07-13 07:35] LABS: Glucose - Point of Care 149 mg/dl (70-99)
[2024-07-13 07:44] LABS: Blood Urea Nitrogen 24 mg/dl (9-20); Calcium 8.8 mg/dl (8.4-10.2); Carbon Dioxide 29 mmol/L (22-30); Chloride 102 mmol/L (98-107); Estimated Creatinine Clearance 84 ml/min; Glucose 141 mg/dl (70-99); Potassium 3.6 mmol/L (3.5-5.1); Sodium 140 mmol/L (135-145); eGFR > 60.00
[2024-07-13] MEDS: NOVOLOG FLEXPEN-LOW RESISTANCE SC (07:49)
[2024-07-13 07:57] VITALS: BP 165/85
--- NOTE | 2024-07-13 08:04 | W.PN.CARDCBS ---
Today's Communication / Plan
-
No plans for PCI or CABG at this time -medical management only for severe LV dysfunction, LV thrombus, severe CAD
Medical management for VF arrest. No ICD at present given recent bacteremia, no LifeVest related to patient's inability to comply
Conservative therapy at present for peripheral vascular disease and leg wound.
Switch heparin to Eliquis
Discharge planning
Impression / Plan
-
PCP: Dr. Sherwood
Cardiology: Dr. Ny, last seen 06/2022
Impression:
Intraoperative PEA/ventricular fibrillation arrest 06/24/2024
Admitted with confusion and acute HFrEF 06/18/24
Tiny nonhemorrhagic acute/subacute infarct in the right periventricular white matter/centrum semiovale region by MRI 06/19/2024
Recent admission to [facility] for acute HF and foot wound 06/06/24 until 06/12/24
Hypotension
Acute HFrEF
CM EF 15% by echo at [place] 06/07/24
h/o improved NICM EF 25% by echo 03/2018 and then improved to 40% by echo 06/2022
CAD
Nonobstructive CAD by cath 2017
MV CAD including 100% HARNESS PULLER mid LAD, Diag-2 is large vessel with serial up to 90% stenosis in the upper branch and 80% stenosis in the lower branch,, ramus 80% mid vessel, circumflex 40 to 50% mid vessel, OM�160 to 70% mid vessel, ostial RPDA 70 to
75%, mid RPDA 70% stenosis, RPL is large with ostial eccentric 75 to 80% stenosis by cardiac cath 07/10/2024
Medication noncompliance
Newly diagnosed LV thrombus
1.5 x 1.2 cm LV apical clot on echo at [place] 06/07/24
Chronic warfarin managed by [facility]
started for LV clot 06/07/24
Supratherapeutic INR on admission
Hyponatremia
GHAZAL on CKD 3a
Elevated LFTs
Chews tobacco
Unwitnessed fall 06/20/2024
tele reviewed and no arrhythmia
Hyperglycemia
Anemia
Left retroperitoneal hematoma by CT 06/30/24
Echo 05/30/2024: [facility] study, EF 15 to 20%, severe global hypokinesis and septal dyskinesis, small and organized thrombus in the LV apex measuring 1.5 x 1.2 cm, grade 3 diastolic dysfunction, at least mildly dilated RV with reduced
systolic function, mild to moderate MR, mild pericardial effusion seen posteriorly without evidence of tamponade
Echo 06/20/24 with IV echo contrast: LV ejection fraction severely reduced, 15-20% with global hypokinesis. Dilated, hypokinetic right ventricle. Biatrial dilatation. Mild MR. Mild to moderate TR. Estimated pulmonary artery systolic pressure
50-55 mmHg. Small pericardial effusion without evidence of hemodynamic compromise. No LV apical thrombus
Cardiac catheterization 07/10/2024: LM: Mild diffuse plaque. LAD: 100% HARNESS PULLER in the midportion with robust right to left and left to left collaterals. Diagonal 2 to serial stenosis up to 90% upper branch followed by 80% lower branch. Ramus: 80% mid
stenosis. Left circumflex: Mid 40 to 50% stenosis. OM1 60 to 70% mid stenosis. RCA: Mild diffuse plaque. Ostial RPDA 70 to 75%, mid 70%. RPL ostial 75 to 80% stenosis followed by 50% mid stenosis. Elevated right and left-sided filling pressures
with normal cardiac output. HEMODYNAMICS : (mmHg) RA (m) : 10; RV (s/d,m) : 43/7, 10; PA (s/d, m) : 45/18, 28; PCWP (m) : 25; Cardiac Output : 5.8 L/min; Cardiac Index : 2.73 L/min/m-2; Systemic vascular resistance: 1268 dsc^(-5); Pulmonary vascular
resistance: 0.[address] angio of the chest 07/11/2024: Retroperitoneal hematoma. Small to moderate left pleural effusion with atelectasis. Small to moderate pericardial effusion measuring 17 mm posteriorly and 12 mm anteriorly. Mild increased interstitial markings of
right lung suggesting interstitial fibrosis
Plan:
From the standpoint of heart failure, he seems compensated, is on goal-directed therapy with an adequate blood pressureAnd good renal function. Will continue his current regimen at this time.
With regards to his severe CAD and LV dysfunction, I have discussed with Dr. Sutton and the structural heart team feels he is currently not a candidate for CABG or PCI given his numerous comorbidities including a very large retroperitoneal hematoma
necessitating 10 units of packed cells and also anoxic encephalopathy. Will continue medical management and he can be reassessed as an outpatient.
Regarding his VF arrest, ideally he would have an ICD placed prior to discharge. However with recent bacteremia and an open wound, ICD implantation is most likely contraindicated. LifeVest is problematic as his anoxic encephalopathy would make it
hard for him to comply. 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 Recurrent risk for VF is real, but with optimal medical therapy this may be somewhat less likely, and we will continue medical therapy alone at this time.
Given his instability at the time of induction of anesthesia when he coded, would not be in favor of vascular intervention on his lower extremity at present unless absolutely necessary. Best wound care and local therapy is indicated and I would
avoid peripheral interventions until he is reassessed and ideally until his severe underlying cardiovascular disease has been more definitively addressed.
Given all of the above, we will stop heparin and begin Eliquis.
From my standpoint would be in favor of beginning discharge planning.
Discussed with daughter who is an LEAD COATER going to nursing school, who is in agreement. She states she will communicate with her mom who is also in agreement.
Additional summary of admission thus far: Admitted with change in mental status and found to have small nonhemorrhagic right hemispheric CVA, recently hospitalized with LV thrombus and acute and chronic HFrEF with left lower extremity wound
infection. Also with choledocholithiasis, status post ERCP and sphincterotomy with stone extraction 06/21/24. Underwent debridement of left foot wound and partial first ray amputation with podiatry on 06/23/24. Then taken to the vascular OR on
06/24/24 for peripheral angiogram and possible intervention and upon induction of anesthesia had pulseless electrical activity degenerating into VF requiring ACLS and ultimately return of spontaneous circulation. Patient had TTM and was eventually
extubated, but has not recovered neurologically. Patient has also been receiving treatment for acute HFrEF during hospital stay. Patient also noted to have large left retroperitoneal hematoma by CT 06/30/2024 and has received 10 units PRBCs this
admission. Heparin gtt placed on hold 06/30/2024 and has not been resumed as of 07/04/2024. Aspirin restarted 07/08/24. Family agreeable to Life Vest after talking with 07/08/24 and they're looking into [place] at for rehab.
HPI: Patient came to [facility] from home yesterday with confusion and garbled speech and was admitted for acute HF and cardiology has been consulted. Patient is a poor historian and gave me permission to call his daughter. Also reviewed 67 pages of
records from recent [place] admission. Patient had NICM diagnosed in 2018 and with GDMT his EF improved to 40% by last echo at in 06/2022. Patient then stopped coming to cardiology appts at , but reportedly did not start following elsewhere.
Patient then retired and stopped taking his medications on a regular schedule despite reminders from family. Patient started with LE wounds 02/2024 and following with wound care center and seemed to be improving. Patient then started with a cough
and saw his PCP 05/02/24 and lungs were clear and he was started on promethazine and albuterol. Patient was then admitted to [place] with SOB 06/06/24 and during that admission was found to have EF down to 15% and he had a new LV clot and was started
on warfarin. Patient was also d/c'd to home on Coreg, Entresto and spironolactone which are meds he had been on when he was last seen in the cardiology office in 2022. Patient was diuresed with Lasix IV and d/c'd to home on Lasix 40 mg PO BID.
Patient's daughter reports that patient was not taking meds at home and when VN came to see him he had garbled speech and was sent to the ER.
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
Subjective
Date of Service: July 13, 2024:
Current medications: Ancef every 8 hours, carvedilol 12.5 twice daily, Farxiga 10 mg a day, MiraLAX, Senokot, pantoprazole, insulin, spironolactone 25 daily, aspirin 81 mg a day, amiodarone 200 mg daily, Entresto 49/51 twice daily, insulin,
furosemide 40 p.o. twice daily
165/85, pulse 68, resp rate 16,80.6 kg, if accurate 3.1 kg, peak weight during this admission was 105 kg, pleasant, but confused and has apraxia with simple maneuvers of body, daughter at bedside head neck exam unremarkable lungs are clear cardiac
exam is notable for a regular rate and rhythm without murmurs or gallops JVD carotids are okay abdomen benign, left foot is wrapped, no edema.
Head CT yesterday no acute abnormality, CTA of the chest large left retroperitoneal hematoma, small to moderate left pleural effusion, small to moderate pericardial effusion, scarring right base, no evidence of thoracic aneurysm
Hip x-ray no acute fracture
PTT is 99.6, BUN and creatinine are 24 and 1, potassium is 3.6, hemoglobin yesterday was 11.0
Objective
Labs:
07/12/24 05:10
07/13/24 06:28
Labs
Hgb 11.0 g/dL (13.0-18.0) L 07/12/24 05:10
Hct 32.9 % (39.0-52.0) L 07/12/24 05:10
Plt Count 349 10^3/uL (130-400) 07/12/24 05:10
PT 18.8 Sec (11.4-14.6) H 06/27/24 03:27
INR 1.52 06/27/24 03:27
APTT 99.6 Sec (23.4-35.0) H 07/13/24 06:28
Sodium 140 mmol/L (135-145) 07/13/24 06:28
Potassium 3.6 mmol/L (3.5-5.1) 07/13/24 06:28
BUN 24 mg/dl (9-20) H 07/13/24 06:28
Creatinine 1.0 mg/dL (0.7-1.3) 07/13/24 06:28
Glucose 141 mg/dl (70-99) H 07/13/24 06:28
Vital Signs and I&O:
Vital Signs
Temp Pulse Resp BP Pulse Ox
36.6 C 68 16 165/85 97
07/13/24 07:57 07/13/24 07:57 07/13/24 07:57 07/13/24 07:57 07/13/24 07:57
Vital Signs
Temp Pulse Resp BP Pulse Ox
36.6 C 68 16 165/85 97
07/13/24 07:57 07/13/24 07:57 07/13/24 07:57 07/13/24 07:57 07/13/24 07:57
Intake & Output
07/11/24 07/12/24 07/13/24 07/14/24
07:59 07:59 07:59 07:59
Intake Total 765 / 765 360 / 360 1308 / 1308
Output Total 820 / 820 2049 / 2049 1725 / 1725
Balance -55 / -55 -1690 / -1690 -417 / -417
Physical Exam
Physical Exam
See above
[2024-07-13] MEDS: LANTUS 0.1 UNITS SC ×2 (09:11→22:51)
[2024-07-13] MEDS: ENTRESTO 49 MG/51 MG 1 TAB PO ×2 (09:11→20:05)
[2024-07-13] MEDS: NOVOLOG FLEXPEN 6 UNITS SC ×3 (09:11→17:25)
[2024-07-13] MEDS: LASIX 40 MG PO ×2 (09:12→17:24)
[2024-07-13] MEDS: COREG 12.5 MG PO ×2 (09:12→20:04)
[2024-07-13] MEDS: LOW STRENGTH ASPIRIN 81 MG PO (09:12)
[2024-07-13] MEDS: ALDACTONE 25 MG PO (09:12)
[2024-07-13] MEDS: FARXIGA 10 MG PO (09:12)
[2024-07-13] MEDS: SENOKOT 17.2 MG PO ×2 (09:12→20:05)
[2024-07-13] MEDS: PROTONIX 40 MG PO (09:12)
[2024-07-13] MEDS: MIRALAX 17 GRAMS PO (09:13)
[2024-07-13] MEDS: PACERONE 200 MG PO (09:18)
[2024-07-13] MEDS: ELIQUIS 5 MG PO (10:09)
[2024-07-13 11:09] VITALS: BP 159/83
--- NOTE | 2024-07-13 11:40 | W.PN.ID1 ---
Date of Service
Date of Service: July 13, 2024
Today's Communication
Continue abx.
Assessment / Plan
MSSA Bacteremia - cleared
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
PEA/v fib arrest 06/24
Large left retroperitoneal hematoma with blood-loss anemia
CVA
Encephalopathy - resolving
Dm2; uncontrolled
Choledocholithiasis s/p ERCP with 06/21 - resolved
- 06/21 and 06/22 blood cultures finalized negative
- Toe swab cx MSSA. Toe amp path: viable margin with focal osteomyelitis
- note plans for possible CABG
- Continue cefazolin 2g IV q8 (day #20 of 42 of abx, 06/22-08/02)
- recommend completing 6 weeks course of IV antibiotics with AICD placement afterwards, alternatively will consider suppression
- has PICC line, note he has recently removed a midline
Possible cholesterol emboli
- scattered eschars on the r forearm, nontender with mild blanching, surrounding erythema; lesions stable
- follow clinically
����������������������������������������������������������
Chief Complaint
-: Other (mssa bacteremia, possible endocarditis)
Subjective / Review of Systems
Review of Systems: No Fever and No Chills
Vital Signs / Physical Exam
Vital Signs
Vital Signs
Temp Pulse Resp BP Pulse Ox
97.9 F 68 16 165/85 97
07/13/24 07:57 07/13/24 07:57 07/13/24 07:57 07/13/24 07:57 07/13/24 07:57
Physical Exam
Constitutional: No Acute Distress
Cardiovascular: Regular Rate and S1/S2; Negative Murmur or Rub
Pulmonary: Clear and Symmetric; Negative Wheezes or Rales
Gastrointestinal: Soft, Non Tender, Non Distended and Normal Bowel Sounds
Skin: Warm, Dry and Rash (scattered eschars on the r forearm, nontender with mild blanching, surrounding erythema; ); Negative Jaundice
Wound: Other (Left hallux amp site with VAC in place.)
Neurological: Awake
Psychological: Calm
Objective Data
Lab Data
Lab Results
07/12/24 05:10
07/13/24 06:28
PT 18.8 Sec (11.4-14.6) H 06/27/24 03:27
INR 1.52 06/27/24 03:27
APTT 99.6 Sec (23.4-35.0) H 07/13/24 06:28
Estimated Creat Clear 84 ml/min 07/13/24 06:28
Lactic Acid 1.0 mmol/L (0.7-2.0) 06/26/24 08:48
Total Bilirubin 2.8 mg/dl (0.2-1.3) H 07/05/24 03:24
AST 52 U/L (17-59) 07/05/24 03:24
ALT 13 U/L (0-50) 07/05/24 03:24
Alkaline Phosphatase 150 U/L (38-126) H 07/05/24 03:24
Most recent labs reviewed.
Micro Results:
06/22/24 13:23 Blood Culture - Final
Blood/Venous No Growth - Final Report
06/21/24 09:33 Blood Culture - Final
Blood/Venous No Growth - Final Report
06/22/24 14:36 Wound Culture - Final
Abscess S aureus-Methicillin Sensitive
Gram Stain - Final
06/20/24 00:42 Blood Culture - Final
Blood/Venous S aureus-Methicillin Sensitive
Gram Stain - Final
06/20/24 01:59 Blood Culture - Final
Blood/Venous S aureus-Methicillin Sensitive
Gram Stain - Final
06/18/24 16:51 Urine Culture - Final
Urine NO GROWTH
06/18/24 16:11 Influenza Types A & B (HUBER) - Final
Nasal Swab Negative for Influenza A & B, NAAT
Negative results must be combined with clinical observations
and patient history.
Nucleic Acid Amplification test (NAAT)performed on the
[employer] platform.
Imaging:
06/24/2024 ECHO (TTE): Normal LV chamber size. Severely reduced LV systolic function with EF approximately 10 to 15%. Severe global hypokinesis. Mitral valve opens normally, but is noted to have thickened leaflets and mitral annular calcification.
Mild mitral regurgitation. Please see full dictation for additional detail.
06/30/24 Brain MRI: No clear MRI evidence for an acute intracranial abnormality within the significant limitations of extensive motion artifact during this exam.
--- NOTE | 2024-07-13 12:03 | W.PN.HOSP.TC ---
Today's Communication/Plan
-
continue current care
Assessment / Plan
Assessment / Plan
Gen-awake, alert, confused, NAD
HEENT-NC, AT, anicteric, clear oral mm
Neck-supple
CV-reg, no M, +S1/S2
Lungs-clear B/L
Abd-soft, NT, ND
Ext-no edema
Musculoskeletal-no cyanosis, clubbing
Skin-warm and dry
Neuro-severe right proximal hip weakness, unable to bend the right knee
Psych-calm, cooperative
PEA/Vfib arrest -following Anesthesia Induction 06/24/2024
Acute Anoxic Encephalopathy vs Delirium -reportedly confusion is slowly improving but I have no comparison as this is my first week with this patient.
-Underwent 3 rounds of ACLS and 4 defibrillations as per Cardio before ROSC was achieved
-ECHO post-code appreciated EF 10-15% no significant change from prior ECHO 06/20/24
-weaned off pressor support
-TTM completed, mental status improving but not at baseline
-Extubated 06/27, downgraded to IMU
-Brain MRI 06/29/24 noted no acute abn though limited study d/t motion defects
-Cardiology initially recommended LifeVest but now they feel that he may not be compliant.
-Low-dose aspirin resumed 07/08
Multivessel CAD -noted on cardiac catheterization 07/10. CT surgery recommending against bypass surgery. Goal-directed medical therapy recommended. Should he develop ACS or anginal symptoms then PCI with high risk stenting recommended.
reported hx LV thrombus
-Dx 2 weeks prior to arrival at [facility], suspect due to severely depressed LVEF
-Started on Coumadin anticoagulation 06/07/2024 for LV apical thrombus
-cardiology stopped IV heparin, will use Lovenox pending decision on LE revasc.
Left retroperitoneal hematoma:
-Large but stable on repeat imaging 07/01
-Hemoglobin stable
Acute blood loss anemia
-Secondary to blood loss from procedures and retroperitoneal hematoma
-Status post transfusion 10 units so far this admission
Hemoglobin spontaneously improved, 11.0. Last transfusion was 07/01.
MSSA bacteremia - possible MV endocarditis as per ID.
-Blood cultures from 06/20 positive for MSSA [correction to prior documentation], repeat cultures from 06/22 also positive
-Suspect secondary to left hallux wet gangrene, which itself is suspected due to embolic effect, status post amputation
-Antibiotics now narrowed to cefazolin 2 g IV every 8 hours, antibiotics to be completed 08/02, PICC line placement when discharge plans have been clarified (hopefully to acute rehab)
-Repeat transthoracic echo 06/24 notable for thickened mitral valves
-Appreciate guidance from ID and podiatry
-strict NWB and elevation LLE as per Podiatry
Right lower extremity weakness -likely acute on chronic. Of note patient was discharged from [facility] June 12 using crutches. Has had difficulty lifting his right leg when getting out of a car requiring him to use his arms to lift the
right thigh up. Appreciate neurology input. Differential diagnosis includes pre-existing myopathy and/or superimposed right lumbosacral plexopathy due to right psoas hematoma. Previous CT scan from July 01 demonstrates intramuscular hematomas in
the right psoas and iliacus muscles.
Repeat CT July 10 without contrast demonstrates stability of hematomas. No change.
Left hallux gangrene/acute osteomyelitis
-Suspect secondary to embolism as also caused stroke
-wound cx pos MSSA
-Status post partial amputation in the OR with podiatry 06/23
-Planned for revascularization 06/24 which was aborted d/t PE/Vfib arrest as above
-Continue local wound care, antibiotics with cefazolin
Vascular surgery planning on angiogram and revascularization, timing to be determined. Vascular surgery spoke with patient's , awaiting decision regarding possible revascularization.
Acute stroke - Suspect secondary to cardiac emboli
� Acute/subacute infarct in the right periventricular white matter/centrum semiovale region
� Currently holding anticoagulation due to large left retroperitoneal hematoma
� Neurology consult appreciated
� Carotids unremarkable
-Now tolerating PT/OT, to be reevaluated by physiatry
-Restarted aspirin 81 mg daily
Acute on chronic HFrEF
EF 15-20%
-Cardio eval appreciated
-Discussed with cardiology, okay with changing Lasix back to oral.
-Beta-blockade with Coreg
-Restarted Entresto and spironolactone
Acute urinary retention:
-Orosco discontinued
-Requiring intermittent straight catheterization
-Will monitor urine output and bladder scans
-Renal function stable
Choledocholithiasis
-ERCP 06/21 with stone identified and removed and biliary sphincterotomy performed
-GI eval appreciated
Transaminitis
� Secondary to choledocholithiasis, ERCP performed 06/21
� Resolving after ERCP
GHAZAL -resolved.
DM 2/diabetic neuropathy
-Uncontrolled, hemoglobin A1c 10.8% this admission
-DM ELECTRICAL DESIGN TECHNOLOGIST eval appreciated
-Currently Lantus 7 units twice daily and sliding scale insulin
-Farxiga resumed
-Gabapentin 600 mg daily on hold d/t Encephalopathy as above
Constipation
cont Miralax and Sennosides, consider Lactulose if no improvement
Mild Hyponatremia
monitor
Hyperlipidemia
-Continue statin
Nicotine dependence
DVT prophylaxis SCDs
Full code
Dispo -eventual discharge to acute rehab once cleared by vascular surgery.
Updated on the phone.
Anticipated Discharge: > 48 hours
Subjective/Interval History
-
Date of Service: July 13, 2024
Patient seen/examined, no complaints.
Objective Data
-
Labs:
Laboratory Results
07/13/24
06:28
APTT 99.6 H
Sodium 140
Potassium 3.6
Chloride 102
Carbon Dioxide 29
BUN 24 H
Creatinine 1.0
Glucose 141 H
Calcium 8.8
Vital Signs:
Vital Signs
Temp Pulse Resp BP Pulse Ox
97.9 F 68 16 165/85 97
07/13/24 07:57 07/13/24 07:57 07/13/24 07:57 07/13/24 07:57 07/13/24 07:57
I&O
07/12/24 07/13/24 07/14/24
06:59 06:59 06:59
Intake Total 360 / 360 1308 / 1308
Output Total 2049 / 2049 1725 / 1725 400 / 400
Balance -1690 / -1690 -417 / -417 -400 / -400
Review of Systems
-
History Source: Patient
All other systems: Reviewed and negative
--- NOTE | 2024-07-13 12:14 | W.PN.UPDATE ---
Update Note
Progress Note Update
Patient was started on Eliquis and heparin discontinued earlier today. Patient is still deciding about possible vascular surgery. Discussed with vascular surgery and primary service. Will stop Eliquis and restart anticoagulation in the form of
lovenex
[2024-07-13 12:17] LABS: Glucose - Point of Care 253 mg/dl (70-99)
[2024-07-13] MEDS: NOVOLOG FLEXPEN-LOW RESISTANCE 3 UNITS SC (12:20)
[2024-07-13 15:03] VITALS: BP 102/69
[2024-07-13 16:53] LABS: Glucose - Point of Care 193 mg/dl (70-99)
[2024-07-13] MEDS: NOVOLOG FLEXPEN-LOW RESISTANCE 1 UNITS SC (17:25)
[2024-07-13 19:15] VITALS: BP 119/84
[2024-07-13] MEDS: LOVENOX 80 MG SC (20:05)
[2024-07-13 21:46] LABS: Glucose - Point of Care 215 mg/dl (70-99)
[2024-07-13 23:15] VITALS: BP 151/75
[2024-07-14 03:15] VITALS: BP 149/81
[2024-07-14] MEDS: ANCEF 10 IV ×3 (05:56→21:56)
[2024-07-14 06:00] VITALS: BMI 21.5
[2024-07-14 07:24] VITALS: BP 129/105
[2024-07-14 07:25] LABS: Glucose - Point of Care 191 mg/dl (70-99)
--- NOTE | 2024-07-14 10:01 | W.PN.HOSP.TC ---
Today's Communication/Plan
-
Continue current care
Assessment / Plan
Assessment / Plan
Gen-awake, alert, confused, NAD
HEENT-NC, AT, anicteric, clear oral mm
Neck-supple
CV-reg, no M, +S1/S2
Lungs-clear B/L
Abd-soft, NT, ND
Ext-no edema
Musculoskeletal-no cyanosis, clubbing
Skin-warm and dry
Neuro-severe right proximal hip weakness, unable to bend the right knee
Psych-calm, cooperative
PEA/Vfib arrest -following Anesthesia Induction 06/24/2024
Acute Anoxic Encephalopathy vs Delirium -reportedly confusion is slowly improving but I have no comparison as this is my first week with this patient.
-Underwent 3 rounds of ACLS and 4 defibrillations as per Cardio before ROSC was achieved
-ECHO post-code appreciated EF 10-15% no significant change from prior ECHO 06/20/24
-weaned off pressor support
-TTM completed, mental status improving but not at baseline
-Extubated 06/27, downgraded to IMU
-Brain MRI 06/29/24 noted no acute abn though limited study d/t motion defects
-Cardiology initially recommended LifeVest but now they feel that he may not be compliant.
-Low-dose aspirin resumed 07/08
Multivessel CAD -noted on cardiac catheterization 07/10. CT surgery recommending against bypass surgery. Goal-directed medical therapy recommended. Should he develop ACS or anginal symptoms then PCI with high risk stenting recommended.
reported hx LV thrombus
-Dx 2 weeks prior to arrival at [facility], suspect due to severely depressed LVEF
-Started on Coumadin anticoagulation 06/07/2024 for LV apical thrombus
-cardiology stopped IV heparin, will use Lovenox pending decision on LE revasc.
Left retroperitoneal hematoma:
-Large but stable on repeat imaging 07/01
-Hemoglobin stable
Acute blood loss anemia
-Secondary to blood loss from procedures and retroperitoneal hematoma
-Status post transfusion 10 units so far this admission
Hemoglobin spontaneously improved, 11.0. Last transfusion was 07/01.
MSSA bacteremia - possible MV endocarditis as per ID.
-Blood cultures from 06/20 positive for MSSA [correction to prior documentation], repeat cultures from 06/22 also positive
-Suspect secondary to left hallux wet gangrene, which itself is suspected due to embolic effect, status post amputation
-Antibiotics now narrowed to cefazolin 2 g IV every 8 hours, antibiotics to be completed 08/02, PICC line placement when discharge plans have been clarified (hopefully to acute rehab)
-Repeat transthoracic echo 06/24 notable for thickened mitral valves
-Appreciate guidance from ID and podiatry
-strict NWB and elevation LLE as per Podiatry
Right lower extremity weakness -likely acute on chronic. Of note patient was discharged from [facility] June 12 using crutches. Has had difficulty lifting his right leg when getting out of a car requiring him to use his arms to lift the
right thigh up. Appreciate neurology input. Differential diagnosis includes pre-existing myopathy and/or superimposed right lumbosacral plexopathy due to right psoas hematoma. Previous CT scan from July 01 demonstrates intramuscular hematomas in
the right psoas and iliacus muscles.
Repeat CT July 10 without contrast demonstrates stability of hematomas. No change.
Left hallux gangrene/acute osteomyelitis
-Suspect secondary to embolism as also caused stroke
-wound cx pos MSSA
-Status post partial amputation in the OR with podiatry 06/23
-Planned for revascularization 06/24 which was aborted d/t PE/Vfib arrest as above
-Continue local wound care, antibiotics with cefazolin
Vascular surgery planning on angiogram and revascularization, timing to be determined. Vascular surgery spoke with patient's , awaiting decision regarding possible revascularization.
Acute stroke - Suspect secondary to cardiac emboli
� Acute/subacute infarct in the right periventricular white matter/centrum semiovale region
� Currently holding anticoagulation due to large left retroperitoneal hematoma
� Neurology consult appreciated
� Carotids unremarkable
-Now tolerating PT/OT, to be reevaluated by physiatry
-Restarted aspirin 81 mg daily
Acute on chronic HFrEF
EF 15-20%
-Cardio eval appreciated
-Discussed with cardiology, okay with changing Lasix back to oral.
-Beta-blockade with Coreg
-Restarted Entresto and spironolactone
Acute urinary retention:
-Orosco discontinued
-Requiring intermittent straight catheterization
-Will monitor urine output and bladder scans
-Renal function stable
Choledocholithiasis
-ERCP 06/21 with stone identified and removed and biliary sphincterotomy performed
-GI eval appreciated
Transaminitis
� Secondary to choledocholithiasis, ERCP performed 06/21
� Resolving after ERCP
GHAZAL -resolved.
DM 2/diabetic neuropathy
-Uncontrolled, hemoglobin A1c 10.8% this admission
-DM SERGEANT OF CORRECTIONS eval appreciated
-Currently Lantus 7 units twice daily and sliding scale insulin
-Farxiga resumed
-Gabapentin 600 mg daily on hold d/t Encephalopathy as above
Constipation
cont Miralax and Sennosides, consider Lactulose if no improvement
Mild Hyponatremia
monitor
Hyperlipidemia
-Continue statin
Nicotine dependence
DVT prophylaxis SCDs
Full code
Dispo -eventual discharge to acute rehab once cleared by vascular surgery.
Updated on the phone.
Anticipated Discharge: > 48 hours
Subjective/Interval History
-
Date of Service: July 14, 2024
Patient seen and examined. No complaints.
Objective Data
-
Vital Signs:
Vital Signs
Temp Pulse Resp BP Pulse Ox
98.5 F 68 16 129/105 96
07/14/24 07:24 07/14/24 07:24 07/14/24 07:24 07/14/24 07:24 07/14/24 07:24
I&O
07/13/24 07/14/24 07/15/24
06:59 06:59 06:59
Intake Total 1308 / 1308 1000 / 1000
Output Total 1725 / 1725 2700 / 2700
Balance -417 / -417 -1700 / -1700
Review of Systems
-
History Source: Patient
All other systems: Reviewed and negative
[2024-07-14] MEDS: LANTUS 0.1 UNITS SC ×2 (10:09→21:56)
[2024-07-14] MEDS: LOVENOX 80 MG SC ×2 (10:09→20:55)
[2024-07-14] MEDS: FARXIGA 10 MG PO (10:10)
[2024-07-14] MEDS: ALDACTONE 25 MG PO (10:10)
[2024-07-14] MEDS: LASIX 40 MG PO ×2 (10:10→16:31)
[2024-07-14] MEDS: LOW STRENGTH ASPIRIN 81 MG PO (10:10)
[2024-07-14] MEDS: PROTONIX 40 MG PO (10:10)
[2024-07-14] MEDS: ENTRESTO 49 MG/51 MG 1 TAB PO ×2 (10:10→20:55)
[2024-07-14] MEDS: PACERONE 200 MG PO (10:11)
[2024-07-14] MEDS: COREG 12.5 MG PO ×2 (10:11→20:55)
[2024-07-14] MEDS: NOVOLOG FLEXPEN-LOW RESISTANCE 1 UNITS SC (10:12)
[2024-07-14] MEDS: NOVOLOG FLEXPEN 6 UNITS SC ×3 (10:12→18:09)
[2024-07-14] MEDS: SENOKOT PO ×2 (10:13→20:57)
[2024-07-14] MEDS: MIRALAX PO (10:13)
[2024-07-14 11:19] VITALS: BP 104/58
--- NOTE | 2024-07-14 11:38 | W.PN.ID1 ---
Date of Service
Date of Service: July 14, 2024
Today's Communication
Continue antibiotics.
Assessment / Plan
MSSA Bacteremia - cleared
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
PEA/v fib arrest 06/24
Large left retroperitoneal hematoma with blood-loss anemia
CVA
Encephalopathy - resolving
Dm2; uncontrolled
Choledocholithiasis s/p ERCP with 06/21 - resolved
- 06/21 and 06/22 blood cultures finalized negative
- Toe swab cx MSSA. Toe amp path: viable margin with focal osteomyelitis
- noted plans for possible CABG
- Continue cefazolin 2g IV q8 (day #22 of 42 of abx, 06/22-08/02)
- recommend completing 6 weeks course of IV antibiotics with AICD placement afterwards, alternatively will consider suppression
- has PICC line, note he has recently removed a midline
Possible cholesterol emboli
- scattered eschars on the r forearm, nontender with mild blanching, surrounding erythema; lesions stable
- follow clinically
����������������������������������������������������������
Chief Complaint
-: Other (mssa bacteremia, possible endocarditis)
Subjective / Review of Systems
Review of Systems: No Fever and No Chills
Vital Signs / Physical Exam
Vital Signs
Vital Signs
Temp Pulse Resp BP Pulse Ox
98.5 F 68 16 129/105 96
07/14/24 07:24 07/14/24 07:24 07/14/24 07:24 07/14/24 07:24 07/14/24 07:24
Physical Exam
Constitutional: No Acute Distress
Cardiovascular: Regular Rate and S1/S2
Pulmonary: Clear and Non Labored
Gastrointestinal: Soft and Non Distended
Skin: Warm, Dry and Rash (scattered eschars on the r forearm, nontender with mild blanching, surrounding erythema; ); Negative Jaundice
Wound: Other (Left hallux amp site with VAC in place.)
Neurological: Awake
Psychological: Calm
Objective Data
Lab Data
Lab Results
07/12/24 05:10
07/13/24 06:28
PT 18.8 Sec (11.4-14.6) H 06/27/24 03:27
INR 1.52 06/27/24 03:27
APTT 99.6 Sec (23.4-35.0) H 07/13/24 06:28
Estimated Creat Clear 84 ml/min 07/13/24 06:28
Lactic Acid 1.0 mmol/L (0.7-2.0) 06/26/24 08:48
Total Bilirubin 2.8 mg/dl (0.2-1.3) H 07/05/24 03:24
AST 52 U/L (17-59) 07/05/24 03:24
ALT 13 U/L (0-50) 07/05/24 03:24
Alkaline Phosphatase 150 U/L (38-126) H 07/05/24 03:24
Most recent labs reviewed.
Micro Results:
06/22/24 13:23 Blood Culture - Final
Blood/Venous No Growth - Final Report
06/21/24 09:33 Blood Culture - Final
Blood/Venous No Growth - Final Report
06/22/24 14:36 Wound Culture - Final
Abscess S aureus-Methicillin Sensitive
Gram Stain - Final
06/20/24 00:42 Blood Culture - Final
Blood/Venous S aureus-Methicillin Sensitive
Gram Stain - Final
06/20/24 01:59 Blood Culture - Final
Blood/Venous S aureus-Methicillin Sensitive
Gram Stain - Final
06/18/24 16:51 Urine Culture - Final
Urine NO GROWTH
06/18/24 16:11 Influenza Types A & B (HUBER) - Final
Nasal Swab Negative for Influenza A & B, NAAT
Negative results must be combined with clinical observations
and patient history.
Nucleic Acid Amplification test (NAAT)performed on the
[employer] platform.
Imaging:
06/24/2024 ECHO (TTE): Normal LV chamber size. Severely reduced LV systolic function with EF approximately 10 to 15%. Severe global hypokinesis. Mitral valve opens normally, but is noted to have thickened leaflets and mitral annular calcification.
Mild mitral regurgitation. Please see full dictation for additional detail.
06/30/24 Brain MRI: No clear MRI evidence for an acute intracranial abnormality within the significant limitations of extensive motion artifact during this exam.
[2024-07-14 12:05] LABS: Glucose - Point of Care 287 mg/dl (70-99)
[2024-07-14] MEDS: NOVOLOG FLEXPEN-LOW RESISTANCE 3 UNITS SC (12:43)
[2024-07-14 15:18] VITALS: BP 114/65
[2024-07-14 17:25] LABS: Glucose - Point of Care 145 mg/dl (70-99)
[2024-07-14] MEDS: NOVOLOG FLEXPEN-LOW RESISTANCE SC (18:09)
[2024-07-14 19:21] VITALS: BP 120/70
[2024-07-14 21:58] LABS: Glucose - Point of Care 158 mg/dl (70-99)
[2024-07-14 23:25] VITALS: BP 136/77
[2024-07-15 03:07] VITALS: BP 142/76
[2024-07-15] MEDS: ANCEF 10 IV ×3 (05:53→22:34)
[2024-07-15 06:00] VITALS: BMI 21.2
[2024-07-15 07:15] VITALS: BP 158/86
[2024-07-15 07:37] LABS: Glucose - Point of Care 149 mg/dl (70-99)
--- NOTE | 2024-07-15 08:32 | PN.DE.MGMTRT ---
Insulin Management
- -
07/15/2024: Diabetes Management Follow up
63 year old male who presented to ER on 06/18/24 with report of AMS changes, of staring, garbled speech, confusion, and balance difficulty lasting an unclear amount of time. Of note, pt was recently admitted at [facility] for LV thrombus
and HFrEF (on Coumadin).
PMH: NICM, mild MR, HTN, Hypercholesterolemia Renal insufficiency, RLE Cellulitis, nicotine use and IDDM. Prior to admission was taking Levemir 20 units BID, Humalog 5 units AC and Farxiga 10mg daily prior to admission. A1C 10.8%.
Pt was also noted for a chronic nonhealing left foot wound as well as a more acute gangrenous left hallux and associated foot infection. He underwent a partial first ray resection on 06/23.
OR 06/24/24 for RLE percutaneous revascularization. Upon anesthesia induction patient PEA/Vfib arrested and underwent ACLS until ROSC was achieved and procedure was aborted.
07/10 cardiac cath - significant multivessel CAD, R & L elevated filling pressures. For CT surgery evaluation.
Patient awake, alert, oriented, sitting up in bed, offers no complaints, able to discuss diabetes care plan. Sara at bedside
Cr 1.0 , eGFR >60 today. Speech eval on 07/02, recommend minced moist diet, patient consuming ~ 80 - 100% of meal.
Pt receiving Lantus 10 units BID, NovoLog 6 units AC with low corrective insulin and Farxiga 10 mg daily.
07/14 premeal glucose range was 145 to 287, requiring 1-3 units of corrective insulin with meals.
Will increase AC NovoLog to 8 units. HS glucose was 158, received Lantus 10 units, FBG 149 this AM. Will increase Lantus to 12 units BID
Cont Farxiga 10 mg daily. Will cont to follow. Discussed with nurse.
Diabetes History
- -
Type of Diabetes: 2 requiring insulin
Pre-Admission Diabetes Regimen
Lab Results
Hemoglobin A1c 10.8 % (4.0-5.6) H 06/19/24 05:43
Insulin Pump Settings
IP Diabetes Regimen
07/14/24 07/14/24 07/14/24
12:04 17:24 21:54
POC Glucose 287 H 145 H 158 H
07/15/24
07:36
POC Glucose 149 H
Meal type: Dinner
Meal type: Lunch
Meal type: Breakfast
Amount consumed: 100%
Amount consumed: 100%
Amount consumed: 100%
Patient Education
--- NOTE | 2024-07-15 08:50 | PTOTSP ---
Speech Language Pathology
Pt seen for cognitive-linguistic tx. Improvement on orientation log noted from on 07/12 to this date. Improvement noted in month, date, year, clock time, and event. Significantly decreased immediate and short-term memory noted.
Pt also seen for dysphagia tx. asking if upgrade possible, as pt is getting sick on limited options on IDDSI 6. Discussed reason for IDDSI 6 is impulsive rate of intake. Seen with breakfast tray of IDDSI 6 solids/thin liquids. No overt signs
of aspiration Extremely large bites, even with IDDSI 6 attempted. Verbal cueing was sufficient for smaller bites. Also trialed regular solids. Initial bite was large, but with verbal cueing, able to take smaller bites. As verbal cueing is
sufficient for small bites, will recommend upgrade. Will monitor.
Recommend:
(1) Upgrade to regular solids/thin liquids
(2) FULL SUPERVISION and ensure small bites (supervision can be via family or staff)
(3) Meds as tolerated
(4) CABLE FERRYBOAT OPERATOR to continue to follow
[2024-07-15] MEDS: MIRALAX 17 GRAMS PO (09:29)
[2024-07-15] MEDS: PROTONIX 40 MG PO (09:29)
[2024-07-15] MEDS: SENOKOT 17.2 MG PO ×2 (09:29→21:17)
[2024-07-15] MEDS: LOW STRENGTH ASPIRIN 81 MG PO (09:29)
[2024-07-15] MEDS: ENTRESTO 49 MG/51 MG 1 TAB PO ×2 (09:29→21:16)
[2024-07-15] MEDS: NOVOLOG FLEXPEN-LOW RESISTANCE SC (09:29)
[2024-07-15] MEDS: LASIX 40 MG PO ×2 (09:30→16:43)
[2024-07-15] MEDS: PACERONE 200 MG PO (09:30)
[2024-07-15] MEDS: ALDACTONE 25 MG PO (09:30)
[2024-07-15] MEDS: FARXIGA 10 MG PO (09:30)
[2024-07-15] MEDS: COREG 12.5 MG PO ×2 (09:31→21:18)
[2024-07-15] MEDS: LOVENOX 80 MG SC ×2 (09:31→21:18)
[2024-07-15] MEDS: LANTUS SC (09:50)
[2024-07-15] MEDS: NOVOLOG FLEXPEN SC (09:50)
[2024-07-15] MEDS: NOVOLOG FLEXPEN 8 UNITS SC ×3 (10:07→18:23)
[2024-07-15] MEDS: LANTUS 0.12 UNITS SC ×2 (10:09→22:33)
[2024-07-15 11:00] VITALS: BP 96/59
--- NOTE | 2024-07-15 12:33 | W.PN.HOSP.TC ---
Today's Communication/Plan
-
Assessment / Plan
Assessment / Plan
Gen-awake, alert, NAD
HEENT-NC, AT, anicteric, clear oral mm
Neck-supple
CV-reg, no M, +S1/S2
Lungs-clear B/L
Abd-soft, NT, ND
Ext-no edema
Musculoskeletal-no cyanosis, clubbing
Skin-warm and dry, left lower extremity wound VAC in place
Neuro-severe right proximal hip weakness, unable to bend the right knee
Psych-calm, cooperative
PEA/Vfib arrest -following Anesthesia Induction 06/24/2024
Acute Anoxic Encephalopathy
-Underwent 3 rounds of ACLS and 4 defibrillations as per Cardio before ROSC was achieved
-ECHO post-code appreciated EF 10-15% no significant change from prior ECHO 06/20/24
-weaned off pressor support
-TTM completed, mental status significantly improved
-Extubated 06/27, downgraded to IMU
-Brain MRI 06/29/24 noted no acute abn though limited study d/t motion defects
-Cardiology initially recommended LifeVest, however patient may not be able to manage this due to his anoxic brain injury, will clarify
-Low-dose aspirin resumed 07/08
Multivessel CAD
-noted on cardiac catheterization 07/10. CT surgery recommending against bypass surgery.
-Goal-directed medical therapy recommended.
-Should he develop ACS or anginal symptoms then PCI with high risk stenting recommended.
reported hx LV thrombus
-Dx at [facility] 2 weeks prior to arrival for this hospitalization, suspect due to severely depressed LVEF
-Started on Coumadin anticoagulation 06/07/2024 for LV apical thrombus
-cardiology stopped IV heparin, have been using Lovenox pending decision on LE revasc.
- Patient and family do not want to pursue revascularization at this point, in that case would be reasonable to transition back to anticoagulation with Eliquis
Left retroperitoneal hematoma:
-Large but stable on repeat imaging 07/01
-Hemoglobin stable
Acute blood loss anemia
-Secondary to blood loss from procedures and retroperitoneal hematoma
-Status post transfusion 10 units so far this admission
Hemoglobin has recovered and on last check was 11.0. Last transfusion was 07/01.
MSSA bacteremia - possible MV endocarditis as per ID.
-Blood cultures from 06/20 positive for MSSA, repeat cultures from 06/22 negative
-Suspect secondary to left hallux wet gangrene, which itself is suspected due to embolic effect, status post amputation
-Antibiotics now narrowed to cefazolin 2 g IV every 8 hours, antibiotics to be completed 08/02, PICC line placement when discharge plans have been clarified (hopefully to acute rehab)
-Repeat transthoracic echo 06/24 notable for thickened mitral valves
-Appreciate guidance from ID and podiatry
-strict NWB and elevation LLE as per Podiatry
Right lower extremity weakness
-likely acute on chronic. Of note patient was discharged from [facility] June 12 using crutches. Has had difficulty lifting his right leg when getting out of a car requiring him to use his arms to lift the right thigh up.
-Appreciate neurology input. Differential diagnosis includes pre-existing myopathy and/or superimposed right lumbosacral plexopathy due to right psoas hematoma.
-Previous CT scan from July 01 demonstrates intramuscular hematomas in the right psoas and iliacus muscles.
-Repeat CT July 10 without contrast demonstrates stability of hematomas. No change.
- Recommend acute rehab
Left hallux gangrene/acute osteomyelitis
-Suspect secondary to embolism as also caused stroke
-wound cx pos MSSA
-Status post partial amputation in the OR with podiatry 06/23
-Planned for revascularization 06/24 which was aborted d/t PE/Vfib arrest as above
-Continue local wound care, antibiotics with cefazolin
-Patient and family do not want to pursue revascularization at this time due to significant cardiovascular risks, will continue antibiotics and local wound care
Acute stroke - Suspect secondary to cardiac emboli
� Acute/subacute infarct in the right periventricular white matter/centrum semiovale region
� Currently holding anticoagulation due to large left retroperitoneal hematoma
� Neurology consult appreciated
� Carotids unremarkable
-Now tolerating PT/OT, hopeful for discharge to [facility]
-Restarted aspirin 81 mg daily
Acute on chronic HFrEF
EF 15-20%
-Cardio eval appreciated
-Now back on oral Lasix 40 mg twice daily
-Beta-blockade with Coreg
-Restarted Entresto and spironolactone
Acute urinary retention:
-Orosco discontinued
-Voiding spontaneously
-Will monitor urine output and bladder scans
-Renal function stable
Choledocholithiasis
-ERCP 06/21 with stone identified and removed and biliary sphincterotomy performed
-GI eval appreciated
Transaminitis
� Secondary to choledocholithiasis, ERCP performed 06/21
� Resolving after ERCP
GHAZAL -resolved.
DM 2/diabetic neuropathy
-Uncontrolled, hemoglobin A1c 10.8% this admission
-DM WINTER SPORTS MANAGER eval appreciated
-Currently Lantus 12 units twice daily and 8 units of short acting insulin with meals, additional sliding scale insulin as needed
-Farxiga resumed
-Gabapentin 600 mg daily on hold d/t Encephalopathy as above
Constipation
cont Miralax and Sennosides, consider Lactulose if no improvement
Mild Hyponatremia
monitor
Hyperlipidemia
-Continue statin
Nicotine dependence
DVT prophylaxis SCDs
Full code
Dispo -eventual discharge to acute rehab once plan clarified regarding LifeVest and anticoagulation, patient and family do not want to pursue any further invasive procedures at this time
Anticipated Discharge: 24 - 48 hours
Subjective/Interval History
-
Date of Service: July 15, 2024
Patient was seen and examined at bedside this morning. He and his do not want any invasive procedures at this point considering the cardiovascular risk. Currently focused on rehabilitation.
Objective Data
-
Vital Signs:
Vital Signs
Temp Pulse Resp BP Pulse Ox
98.5 F 72 16 96/59 96
07/15/24 11:00 07/15/24 11:00 07/15/24 11:00 07/15/24 11:00 07/15/24 11:00
I&O
07/14/24 07/15/24 07/16/24
06:59 06:59 06:59
Intake Total 1000 / 1000 1260 / 1260
Output Total 2700 / 2700 1375 / 1375
Balance -1700 / -1700 -115 / -115
Review of Systems
-
History Source: Patient
All other systems: Reviewed and negative
Neuro: Reports Weakness (Right lower extremity weakness)
Physical Exam
-
General: No Apparent Distress
[2024-07-15 13:23] LABS: Glucose - Point of Care 332 mg/dl (70-99)
--- NOTE | 2024-07-15 13:39 | CM ---
Received a call from Noemi
Contact Fiordaliza @ [phone] if support with discharge planning is needed
[2024-07-15] MEDS: NOVOLOG FLEXPEN-LOW RESISTANCE 4 UNITS SC (13:55)
--- NOTE | 2024-07-15 14:49 | W.PN.ID1 ---
Date of Service
Date of Service: July 15, 2024
Today's Communication
Continue antibiotics.
Assessment / Plan
MSSA Bacteremia - cleared
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
PEA/v fib arrest 06/24
Large left retroperitoneal hematoma with blood-loss anemia
CVA
Encephalopathy - resolving
Dm2; uncontrolled
Choledocholithiasis s/p ERCP with 06/21 - resolved
- 06/21 and 06/22 blood cultures finalized negative
- Toe swab cx MSSA. Toe amp path: viable margin with focal osteomyelitis
- Continue cefazolin 2g IV q8 (day #22 of 42 of abx, 06/22 trough 08/02)
- recommend completing 6 weeks course of IV antibiotics with AICD placement afterwards, alternatively will consider suppression
- Check ESR / CRP in am
Possible cholesterol emboli
- scattered eschars on the r forearm, nontender with mild blanching, surrounding erythema; lesions stable
- follow clinically
����������������������������������������������������������
Chief Complaint
-: Other (mssa bacteremia, possible endocarditis)
Subjective / Review of Systems
Patient seen and examined. Offers no complaints at present. Denies fevers or chills. VAC remains in place.
Review of Systems: No Fever and No Chills
Vital Signs / Physical Exam
Vital Signs
Vital Signs
Temp Pulse Resp BP Pulse Ox
98.5 F 72 16 96/59 96
07/15/24 11:00 07/15/24 11:00 07/15/24 11:00 07/15/24 11:00 07/15/24 11:00
Physical Exam
Constitutional: No Acute Distress
Cardiovascular: Regular Rate and S1/S2
Pulmonary: Clear and Non Labored
Gastrointestinal: Soft and Non Distended
Skin: Warm, Dry and Rash (scattered eschars on the r forearm, nontender with mild blanching, surrounding erythema; ); Negative Jaundice
Wound: Other (Left hallux amp site with VAC in place. No erythema extending up the leg.)
Neurological: Awake
Psychological: Calm
Objective Data
Lab Data
Lab Results
07/12/24 05:10
07/13/24 06:28
PT 18.8 Sec (11.4-14.6) H 06/27/24 03:27
INR 1.52 06/27/24 03:27
APTT 99.6 Sec (23.4-35.0) H 07/13/24 06:28
Estimated Creat Clear 84 ml/min 07/13/24 06:28
Lactic Acid 1.0 mmol/L (0.7-2.0) 06/26/24 08:48
Total Bilirubin 2.8 mg/dl (0.2-1.3) H 07/05/24 03:24
AST 52 U/L (17-59) 07/05/24 03:24
ALT 13 U/L (0-50) 07/05/24 03:24
Alkaline Phosphatase 150 U/L (38-126) H 07/05/24 03:24
Most recent labs reviewed.
Micro Results:
06/22/24 13:23 Blood Culture - Final
Blood/Venous No Growth - Final Report
06/21/24 09:33 Blood Culture - Final
Blood/Venous No Growth - Final Report
06/22/24 14:36 Wound Culture - Final
Abscess S aureus-Methicillin Sensitive
Gram Stain - Final
06/20/24 00:42 Blood Culture - Final
Blood/Venous S aureus-Methicillin Sensitive
Gram Stain - Final
06/20/24 01:59 Blood Culture - Final
Blood/Venous S aureus-Methicillin Sensitive
Gram Stain - Final
06/18/24 16:51 Urine Culture - Final
Urine NO GROWTH
06/18/24 16:11 Influenza Types A & B (HUBER) - Final
Nasal Swab Negative for Influenza A & B, NAAT
Negative results must be combined with clinical observations
and patient history.
Nucleic Acid Amplification test (NAAT)performed on the
[employer] platform.
Imaging:
06/24/2024 ECHO (TTE): Normal LV chamber size. Severely reduced LV systolic function with EF approximately 10 to 15%. Severe global hypokinesis. Mitral valve opens normally, but is noted to have thickened leaflets and mitral annular calcification.
Mild mitral regurgitation. Please see full dictation for additional detail.
06/30/24 Brain MRI: No clear MRI evidence for an acute intracranial abnormality within the significant limitations of extensive motion artifact during this exam.
[2024-07-15 15:10] VITALS: BP 113/60
[2024-07-15 17:24] LABS: Glucose - Point of Care 227 mg/dl (70-99)
[2024-07-15] MEDS: NOVOLOG FLEXPEN-LOW RESISTANCE 2 UNITS SC (18:23)
[2024-07-15 19:18] VITALS: BP 133/70
[2024-07-15 22:36] LABS: Glucose - Point of Care 155 mg/dl (70-99)
[2024-07-15 23:35] VITALS: BP 108/61
[2024-07-16] VITALS (7 sets, daily range): BP systolic 106–160; BP diastolic 63–88; PULSE 58; O2SAT 98; BMI 21.2
[2024-07-16] MEDS: ANCEF 10 IV ×3 (06:12→22:33)
[2024-07-16 07:11] LABS: Glucose - Point of Care 84 mg/dl (70-99)
[2024-07-16] MEDS: LANTUS 0.12 UNITS SC ×2 (07:50→22:33)
[2024-07-16] MEDS: MIRALAX 17 GRAMS PO (07:51)
[2024-07-16] MEDS: LOW STRENGTH ASPIRIN 81 MG PO (07:52)
[2024-07-16] MEDS: LOVENOX 80 MG SC (07:52)
[2024-07-16] MEDS: FARXIGA 10 MG PO (07:52)
[2024-07-16] MEDS: SENOKOT 17.2 MG PO ×2 (07:53→20:15)
[2024-07-16] MEDS: PROTONIX 40 MG PO (07:53)
[2024-07-16] MEDS: COREG 12.5 MG PO ×2 (07:53→20:15)
[2024-07-16] MEDS: ENTRESTO 49 MG/51 MG 1 TAB PO ×2 (07:53→20:14)
[2024-07-16] MEDS: PACERONE 200 MG PO (07:54)
[2024-07-16] MEDS: LASIX 40 MG PO ×2 (07:54→15:47)
[2024-07-16] MEDS: ALDACTONE 25 MG PO (07:54)
[2024-07-16] MEDS: NOVOLOG FLEXPEN-LOW RESISTANCE SC ×2 (07:55→17:10)
[2024-07-16] MEDS: NOVOLOG FLEXPEN 8 UNITS SC ×2 (08:52→17:10)
--- NOTE | 2024-07-16 10:19 | PN.DE.MGMTRT ---
Insulin Management
- -
07/16/2024: Diabetes Management Follow up
63 year old male who presented to ER on 06/18/24 with report of AMS changes, of staring, garbled speech, confusion, and balance difficulty lasting an unclear amount of time. Of note, pt was recently admitted at [facility] for LV thrombus
and HFrEF (on Coumadin).
PMH: NICM, mild MR, HTN, Hypercholesterolemia Renal insufficiency, RLE Cellulitis, nicotine use and IDDM. Prior to admission was taking Levemir 20 units BID, Humalog 5 units AC and Farxiga 10mg daily prior to admission. A1C 10.8%.
Pt was also noted for a chronic nonhealing left foot wound as well as a more acute gangrenous left hallux and associated foot infection. He underwent a partial first ray resection on 06/23.
OR 06/24/24 for RLE percutaneous revascularization. Upon anesthesia induction patient PEA/Vfib arrested and underwent ACLS until ROSC was achieved and procedure was aborted.
07/10 cardiac cath - significant multivessel CAD, R & L elevated filling pressures. For CT surgery evaluation.
Patient awake, alert, oriented, sitting up in bed, offers no complaints, able to discuss diabetes care plan.
Cr 1.0, eGFR >60 today. Speech eval on 07/02, recommend minced moist diet. 07/15 diet advanced to REGULAR, pt hx of w/uncontrolled diabetes.
07/15 premeal glucose 227 to 332 while on REGULAR DIET. Will modify diet to 2000 inna ADA diet
Increase pre-breakfast and pre-lunch NovoLog dose to 10 units.
HS glucose was 155, FBG 84 POC this AM. Will cont pre-dinner NovoLog 8 units and Lantus 12 units BID
Cont Farxiga 10 mg daily. Will cont to follow. Discussed with nurse.
Diabetes History
- -
Type of Diabetes: 2 requiring insulin
Pre-Admission Diabetes Regimen
Lab Results
Hemoglobin A1c 10.8 % (4.0-5.6) H 06/19/24 05:43
Insulin Pump Settings
IP Diabetes Regimen
07/15/24 07/15/24 07/15/24
13:22 17:23 22:15
POC Glucose 332 H 227 H 155 H
07/16/24
07:10
POC Glucose 84
Meal type: Dinner
Meal type: Lunch
Meal type: Breakfast
Amount consumed: 100%
Amount consumed: 75%
Amount consumed: 85%
Patient Education
--- NOTE | 2024-07-16 10:34 | CM ---
Chart reviewed and plan was for [facility] when stable however, patient will need to follow up with [facility] admissions and PM&R to see if they will accept patient, per notes patient may need to go to [place] where they can manage [facility].
Last PT/OT is from 07/12/24. Plan is for [facility] and this will limit the options for placement.
Plan; [facility] with [facility]. May need to pursue LTAC.
[2024-07-16 11:23] LABS: Erythrocyte Sed Rate 57 mm/hour (0-20)
--- NOTE | 2024-07-16 11:51 | W.PN.ID1 ---
Date of Service
Date of Service: July 16, 2024
Today's Communication
- Continue cefazolin 2g IV q8 (day #23 of 42 of abx, 06/22 trough 08/02)
- recommend completing 6 weeks course of IV antibiotics with AICD placement afterwards, alternatively if AICD placed prior to completion of cefazolin will consider life long suppression
- ESR / CRP - mild/moderately elevated
Assessment / Plan
MSSA Bacteremia - cleared
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
PEA/v fib arrest 06/24
Large left retroperitoneal hematoma with blood-loss anemia
CVA
Encephalopathy - resolving
Dm2; uncontrolled
Choledocholithiasis s/p ERCP with 06/21 - resolved
- 06/21 and 06/22 blood cultures finalized negative
- Toe swab cx MSSA. Toe amp path: viable margin with focal osteomyelitis
- Continue cefazolin 2g IV q8 (day #23 of 42 of abx, 06/22 trough 08/02)
- recommend completing 6 weeks course of IV antibiotics with AICD placement afterwards, alternatively if AICD placed prior to completion of cefazolin will consider life long suppression
- ESR / CRP - mild/moderately elevated
Possible cholesterol emboli
- scattered eschars on the r forearm, nontender with mild blanching, surrounding erythema; lesions stable
- follow clinically
����������������������������������������������������������
Chief Complaint
-: Other (mssa bacteremia, possible endocarditis)
Subjective / Review of Systems
afebrile
bp stable
no complaints
Vital Signs / Physical Exam
Vital Signs
Vital Signs
Temp Pulse Resp BP Pulse Ox
98.3 F 59 16 108/63 99
07/16/24 11:20 07/16/24 11:20 07/16/24 11:20 07/16/24 11:20 07/16/24 11:20
Physical Exam
Constitutional: No Acute Distress
Cardiovascular: Regular Rate and S1/S2; Negative Murmur or Rub
Pulmonary: Clear and Symmetric; Negative Wheezes or Rales
Gastrointestinal: Soft, Non Tender, Non Distended and Normal Bowel Sounds
Skin: Warm and Dry; Negative Rash or Jaundice
Objective Data
Lab Data
Lab Results
07/12/24 05:10
07/13/24 06:28
ESR 57 mm/hour (0-20) H 07/16/24 07:24
PT 18.8 Sec (11.4-14.6) H 06/27/24 03:27
INR 1.52 06/27/24 03:27
APTT 99.6 Sec (23.4-35.0) H 07/13/24 06:28
Estimated Creat Clear 84 ml/min 07/13/24 06:28
Lactic Acid 1.0 mmol/L (0.7-2.0) 06/26/24 08:48
Total Bilirubin 2.8 mg/dl (0.2-1.3) H 07/05/24 03:24
AST 52 U/L (17-59) 07/05/24 03:24
ALT 13 U/L (0-50) 07/05/24 03:24
Alkaline Phosphatase 150 U/L (38-126) H 07/05/24 03:24
C-Reactive Protein 19.70 mg/L (0.0-10.00) H 07/16/24 07:24
Most recent labs reviewed.
Micro Results:
06/22/24 13:23 Blood Culture - Final
Blood/Venous No Growth - Final Report
06/21/24 09:33 Blood Culture - Final
Blood/Venous No Growth - Final Report
06/22/24 14:36 Wound Culture - Final
Abscess S aureus-Methicillin Sensitive
Gram Stain - Final
06/20/24 00:42 Blood Culture - Final
Blood/Venous S aureus-Methicillin Sensitive
Gram Stain - Final
06/20/24 01:59 Blood Culture - Final
Blood/Venous S aureus-Methicillin Sensitive
Gram Stain - Final
06/18/24 16:51 Urine Culture - Final
Urine NO GROWTH
06/18/24 16:11 Influenza Types A & B (HUBER) - Final
Nasal Swab Negative for Influenza A & B, NAAT
Negative results must be combined with clinical observations
and patient history.
Nucleic Acid Amplification test (NAAT)performed on the
SNOBSWAP platform.
Imaging:
06/24/2024 ECHO (TTE): Normal LV chamber size. Severely reduced LV systolic function with EF approximately 10 to 15%. Severe global hypokinesis. Mitral valve opens normally, but is noted to have thickened leaflets and mitral annular calcification.
Mild mitral regurgitation. Please see full dictation for additional detail.
06/30/24 Brain MRI: No clear MRI evidence for an acute intracranial abnormality within the significant limitations of extensive motion artifact during this exam.
[2024-07-16 12:01] LABS: Glucose - Point of Care 250 mg/dl (70-99)
--- NOTE | 2024-07-16 12:48 | W.PN.HOSP.TC ---
Today's Communication/Plan
-
Assessment / Plan
Assessment / Plan
Gen-comfortable, NAD
HEENT-NC, AT, anicteric, clear oral mm
Neck-supple
CV-reg, no M, +S1/S2
Lungs-clear B/L
Abd-soft, NT, ND
Ext-no edema
Musculoskeletal-no cyanosis, clubbing
Skin-warm and dry, left lower extremity wound VAC in place
Neuro-severe right proximal hip weakness, unable to bend the right knee
Psych-calm, cooperative
PEA/Vfib arrest -following Anesthesia Induction 06/24/2024
Acute Anoxic Encephalopathy
-Underwent 3 rounds of ACLS and 4 defibrillations as per Cardio before ROSC was achieved
-ECHO post-code appreciated EF 10-15% no significant change from prior ECHO 06/20/24
-weaned off pressor support
-TTM completed, mental status significantly improved
-Extubated 06/27, downgraded to IMU
-Brain MRI 06/29/24 noted no acute abn though limited study d/t motion defects
-Cardiology initially recommended [facility], however patient may not be able to manage this due to his anoxic brain injury, will clarify
-Low-dose aspirin resumed 07/08
Multivessel CAD
-noted on cardiac catheterization 07/10. CT surgery recommending against bypass surgery.
-Goal-directed medical therapy recommended.
-Should he develop ACS or anginal symptoms then PCI with high risk stenting recommended.
reported hx LV thrombus
-Dx at [facility] 2 weeks prior to arrival for this hospitalization, suspect due to severely depressed LVEF
-Started on Coumadin anticoagulation 06/07/2024 for LV apical thrombus
-cardiology stopped IV heparin, have been using Lovenox pending decision on LE revasc.
- Patient and family do not want to pursue revascularization at this point, in that case would be reasonable to transition back to anticoagulation with Eliquis
Left retroperitoneal hematoma:
-Large but stable on repeat imaging 07/01
-Hemoglobin stable
Acute blood loss anemia
-Secondary to blood loss from procedures and retroperitoneal hematoma
-Status post transfusion 10 units so far this admission
Hemoglobin has recovered and on last check was 11.0. Last transfusion was 07/01.
MSSA bacteremia - possible MV endocarditis as per ID.
-Blood cultures from 06/20 positive for MSSA, repeat cultures from 06/22 negative
-Suspect secondary to left hallux wet gangrene, which itself is suspected due to embolic effect, status post amputation
-Antibiotics now narrowed to cefazolin 2 g IV every 8 hours, antibiotics to be completed 08/02, PICC line placement when discharge plans have been clarified (hopefully to acute rehab)
-Repeat transthoracic echo 06/24 notable for thickened mitral valves
-Appreciate guidance from ID and podiatry
-strict NWB and elevation LLE as per Podiatry
Right lower extremity weakness
-likely acute on chronic. Of note patient was discharged from [facility] June 12 using crutches. Has had difficulty lifting his right leg when getting out of a car requiring him to use his arms to lift the right thigh up.
-Appreciate neurology input. Differential diagnosis includes pre-existing myopathy and/or superimposed right lumbosacral plexopathy due to right psoas hematoma.
-Previous CT scan from July 01 demonstrates intramuscular hematomas in the right psoas and iliacus muscles.
-Repeat CT July 10 without contrast demonstrates stability of hematomas. No change.
- Recommend acute rehab
Left hallux gangrene/acute osteomyelitis
-Suspect secondary to embolism as also caused stroke
-wound cx pos MSSA
-Status post partial amputation in the OR with podiatry 06/23
-Planned for revascularization 06/24 which was aborted d/t PE/Vfib arrest as above
-Continue local wound care, antibiotics with cefazolin
-Patient and family do not want to pursue revascularization at this time due to significant cardiovascular risks, will continue antibiotics and local wound care
Acute stroke - Suspect secondary to cardiac emboli
� Acute/subacute infarct in the right periventricular white matter/centrum semiovale region
� Currently holding anticoagulation due to large left retroperitoneal hematoma
� Neurology consult appreciated
� Carotids unremarkable
-Now tolerating PT/OT, hopeful for discharge to [facility]
-Restarted aspirin 81 mg daily
Acute on chronic HFrEF
EF 15-20%
-Cardio eval appreciated
-Now back on oral Lasix 40 mg twice daily
-Beta-blockade with Coreg
-Restarted Entresto and spironolactone
Acute urinary retention:
-Orosco discontinued
-Voiding spontaneously
-Will monitor urine output and bladder scans
-Renal function stable
Choledocholithiasis
-ERCP 06/21 with stone identified and removed and biliary sphincterotomy performed
-GI eval appreciated
Transaminitis
� Secondary to choledocholithiasis, ERCP performed 06/21
� Resolving after ERCP
GHAZAL -resolved.
DM 2/diabetic neuropathy
-Uncontrolled, hemoglobin A1c 10.8% this admission
-DM TODDLER NANNY eval appreciated
-Currently Lantus 12 units twice daily and short acting insulin with meals (10 units with breakfast and lunch/ 8 units with dinner), additional sliding scale insulin as needed
-Farxiga resumed
-Gabapentin 600 mg daily on hold d/t Encephalopathy as above
Constipation
cont Miralax and Sennosides, consider Lactulose if no improvement
Mild Hyponatremia
monitor
Hyperlipidemia
-Continue statin
Nicotine dependence
DVT prophylaxis SCDs
Full code
Dispo -eventual discharge to acute rehab once plan clarified regarding [facility] and anticoagulation, patient and family do not want to pursue any further invasive procedures at this time
Anticipated Discharge: 24 - 48 hours
Subjective/Interval History
-
Date of Service: July 16, 2024
Patient was seen and examined at bedside this morning. Resting comfortably.
Objective Data
-
Vital Signs:
Vital Signs
Temp Pulse Resp BP Pulse Ox
98.3 F 59 16 108/63 99
07/16/24 11:20 07/16/24 11:20 07/16/24 11:20 07/16/24 11:20 07/16/24 11:20
I&O
07/15/24 07/16/24 07/17/24
06:59 06:59 06:59
Intake Total 1260 / 1260 1320 / 1320
Output Total 1375 / 1375 1850 / 1850
Balance -115 / -115 -530 / -530
Review of Systems
-
History Source: Patient
All other systems: Reviewed and negative
Physical Exam
-
General: No Apparent Distress
[2024-07-16] MEDS: NOVOLOG FLEXPEN 10 UNITS SC (13:27)
[2024-07-16] MEDS: NOVOLOG FLEXPEN-LOW RESISTANCE 3 UNITS SC (13:27)
--- NOTE | 2024-07-16 15:03 | WOUNDNOTE ---
WON RN NOTE: Followed up via nurse Melton regarding patient's wounds. Wound vac dressing changed by nurse Melton last evening with black foam to 125mmhg. Vac dressing was applied by Dr. Main in OR over the weekend. Confirmed with Dr. Main
orders for wound vac and he states he does not need to be present for vac change. Vac supplies in for tomorrows vac change to be done by wound care. Updated wound care orders, nurse Melton and care plan. Patient for Rehab upon discharge. Will
update [facility] with vac placement.
[2024-07-16 17:07] LABS: Glucose - Point of Care 91 mg/dl (70-99)
[2024-07-16] MEDS: ELIQUIS 5 MG PO (20:15)
[2024-07-16 21:22] LABS: Glucose - Point of Care 106 mg/dl (70-99)
[2024-07-17] VITALS (8 sets, daily range): BP systolic 87–152; BP diastolic 51–84; PULSE 68; O2SAT 98; BMI 21.3
[2024-07-17] MEDS: ANCEF 10 IV ×3 (06:37→22:29)
[2024-07-17 07:30] LABS: Glucose - Point of Care 143 mg/dl (70-99)
[2024-07-17] MEDS: NOVOLOG FLEXPEN-LOW RESISTANCE SC (08:37)
[2024-07-17] MEDS: FARXIGA 10 MG PO (08:45)
[2024-07-17] MEDS: PROTONIX 40 MG PO (08:45)
[2024-07-17] MEDS: SENOKOT 17.2 MG PO ×2 (08:45→21:04)
[2024-07-17] MEDS: ENTRESTO 49 MG/51 MG 1 TAB PO ×2 (08:46→21:03)
[2024-07-17] MEDS: ELIQUIS 5 MG PO ×2 (08:50→21:03)
[2024-07-17] MEDS: ALDACTONE 25 MG PO (08:50)
[2024-07-17] MEDS: LASIX 40 MG PO ×2 (08:50→16:52)
[2024-07-17] MEDS: COREG 12.5 MG PO ×2 (08:50→21:03)
[2024-07-17] MEDS: LOW STRENGTH ASPIRIN 81 MG PO (08:51)
[2024-07-17] MEDS: MIRALAX 17 GRAMS PO (08:51)
[2024-07-17] MEDS: PACERONE 200 MG PO (08:58)
[2024-07-17] MEDS: NOVOLOG FLEXPEN 10 UNITS SC ×2 (09:10→13:09)
[2024-07-17] MEDS: LANTUS 0.12 UNITS SC ×2 (09:56→22:28)
--- NOTE | 2024-07-17 10:15 | PN.DE.MGMTRT ---
Insulin Management
- -
07/17/2024: Diabetes Management Follow up
63 year old male who presented to ER on 06/18/24 with report of AMS changes, of staring, garbled speech, confusion, and balance difficulty lasting an unclear amount of time. Of note, pt was recently admitted at [facility] for LV thrombus
and HFrEF (on Coumadin).
PMH: NICM, mild MR, HTN, Hypercholesterolemia Renal insufficiency, RLE Cellulitis, nicotine use and IDDM. Prior to admission was taking Levemir 20 units BID, Humalog 5 units AC and Farxiga 10mg daily prior to admission. A1C 10.8%.
Pt was also noted for a chronic nonhealing left foot wound as well as a more acute gangrenous left hallux and associated foot infection. He underwent a partial first ray resection on 06/23.
OR 06/24/24 for RLE percutaneous revascularization. Upon anesthesia induction patient PEA/Vfib arrested and underwent ACLS until ROSC was achieved and procedure was aborted.
07/10 cardiac cath - significant multivessel CAD, R & L elevated filling pressures. For CT surgery evaluation.
Patient awake, alert, oriented, sitting up in bed, offers no complaints, able to discuss diabetes care plan. Dtr- Elisabeth at bedside.
Cr 1.0, eGFR >60 today. Speech eval on 07/02, recommend minced moist diet. 07/15 diet advanced to REGULAR, pt hx of w/uncontrolled diabetes.
07/15 premeal glucose 227 to 332 while on REGULAR DIET, / modified diet to 2000 inna ADA diet and adjusted AC insulin dose.
07/16 glucose improved, pre-dinner 91, 106 @ HS and 143 fasting this morning
Will make no changes to current regimen: NovoLog 10 units at breakfast and lunch and 8 units at dinner, Lantus 12 units BID and Farxiga 10 mg daily.
Will cont to follow. Discussed with nurse.
Diabetes History
- -
Type of Diabetes: 2 requiring insulin
Pre-Admission Diabetes Regimen
Lab Results
Hemoglobin A1c 10.8 % (4.0-5.6) H 06/19/24 05:43
Insulin Pump Settings
IP Diabetes Regimen
07/16/24 07/16/24 07/16/24
12:00 17:06 21:21
POC Glucose 250 H 91 106 H
07/17/24
07:28
POC Glucose 143 H
Meal type: Breakfast
Meal type: Lunch
Meal type: Breakfast
Amount consumed: 75%
Amount consumed: 100%
Amount consumed: 100%
Patient Education
[2024-07-17 11:59] LABS: Glucose - Point of Care 210 mg/dl (70-99)
--- NOTE | 2024-07-17 12:00 | WOUNDNOTE ---
L 5TH MTH (LATERAL)
--- NOTE | 2024-07-17 12:00 | WOUNDNOTE ---
L ANKLE (POSTERIOR LATERAL)
--- NOTE | 2024-07-17 12:03 | WOUNDNOTE ---
[facility] RN Note: L medial forefoot vac dressing changed mostly pink with some yellow fibrin. Deepest depth in center about 1.9cm. Moderate ss drainage. Calf abrasions healing. L pedal pulse heard via portable Doppler. Sacral deep dermal stage 2 pressure
injury pink with yellow fibrin. Scabbed abrasions on R medial arm. R knee abrasion pink. Penis abrasions scabbed. Foam dressing changed on R heel skin fissure. Silicone border foam dressing changed on legs, R knee and sacrum. Patient is on a
[facility] air bed. Patient can turn self in bed. Appetite good. Patient turned to L semi side lying position. Patient had a small soft brown stool. Kelsie care given. Heels off bed with TruVue lite boots. Next vac change due Monday.
--- NOTE | 2024-07-17 12:15 | WOUNDNOTE ---
WOC RN note: Zion Echavarria re: patient will need a wound vac at rehab. Small black vac dressing, vac pump setting 125mmhg continuous.
--- NOTE | 2024-07-17 12:18 | CM ---
qc manager reviewed patient's chart and spoke with physician and reached out to [facility] admissions, and plan will be to review patient's chart, patient will require speech, PT/OT, and wound vac, will need to review [facility]. Patient is aware of plan.
Plan; Hopefully [facility] acute rehab, will await determination from [facility].
[2024-07-17] MEDS: NOVOLOG FLEXPEN-LOW RESISTANCE 2 UNITS SC (13:10)
--- NOTE | 2024-07-17 14:22 | W.PN.HOSP.TC ---
Today's Communication/Plan
-
Assessment / Plan
Assessment / Plan
Gen-comfortable, NAD
HEENT-NC, AT, anicteric, clear oral mm
Neck-supple
CV-reg, no M, +S1/S2
Lungs-clear B/L
Abd-soft, NT, ND
Ext-no edema
Musculoskeletal-no cyanosis, clubbing
Skin-warm and dry, left lower extremity wound VAC in place
Neuro- right proximal hip weakness, right hip flexor weakness
Psych-calm, cooperative
PEA/Vfib arrest -following Anesthesia Induction 06/24/2024
Acute Anoxic Encephalopathy
-Underwent 3 rounds of ACLS and 4 defibrillations as per Cardio before ROSC was achieved
-ECHO post-code appreciated EF 10-15% no significant change from prior ECHO 06/20/24
-weaned off pressor support
-TTM completed, mental status significantly improved
-Extubated 06/27, downgraded to IMU
-Brain MRI 06/29/24 noted no acute abn though limited study d/t motion defects
-Cardiology initially recommended [facility], however patient not be able to manage this due to his anoxic brain injury, no current plan for [facility], will reevaluate possibility of ICD after completing antibiotic course
-Low-dose aspirin resumed 07/08
- Medically stable for discharge to SNF/acute rehab, attempting to clarify weightbearing status considering left lower extremity wound VAC which may unfortunately limit rehab options for now
MSSA bacteremia - possible MV endocarditis as per ID.
-Blood cultures from 06/20 positive for MSSA, repeat cultures from 06/22 negative
-Suspect secondary to left hallux wet gangrene, which itself is suspected due to embolic effect, status post amputation
-Antibiotics now narrowed to cefazolin 2 g IV every 8 hours, antibiotics to be completed 08/02, PICC line placement when discharge plans have been clarified (hopefully to acute rehab)
-Repeat transthoracic echo 06/24 notable for thickened mitral valves
-Appreciate guidance from ID
Left hallux gangrene/acute osteomyelitis
-Suspect secondary to embolism as also caused stroke
-wound cx pos MSSA
-Status post partial amputation in the OR with podiatry 06/23
-Planned for revascularization 06/24 which was aborted d/t PE/Vfib arrest as above
-Continue local wound care, antibiotics with cefazolin
-Patient and family do not want to pursue revascularization at this time due to significant cardiovascular risks, will continue antibiotics and local wound care
-strict NWB and elevation LLE as per Podiatry at this point, will clarify if able to modify weightbearing status to heel touch
Acute stroke - Suspect secondary to cardiac emboli
� Acute/subacute infarct in the right periventricular white matter/centrum semiovale region
� Currently holding anticoagulation due to large left retroperitoneal hematoma
� Neurology consult appreciated
� Carotids unremarkable
-Now tolerating PT/OT, hopeful for discharge to [facility] rehab
-Restarted aspirin 81 mg daily
Right lower extremity weakness
-likely acute on chronic. Of note patient was discharged from [facility] June 12 using crutches. Has had difficulty lifting his right leg when getting out of a car requiring him to use his arms to lift the right thigh up.
-Appreciate neurology input. Differential diagnosis includes pre-existing myopathy and/or superimposed right lumbosacral plexopathy due to right psoas hematoma.
-Previous CT scan from July 01 demonstrates intramuscular hematomas in the right psoas and iliacus muscles.
-Repeat CT July 10 without contrast demonstrates stability of hematomas. No change.
- Recommend acute rehab
Multivessel CAD
-noted on cardiac catheterization 07/10. CT surgery recommending against bypass surgery.
-Goal-directed medical therapy recommended.
-Should he develop ACS or anginal symptoms then PCI with high risk stenting recommended.
reported hx LV thrombus
-Dx at [facility] 2 weeks prior to arrival for this hospitalization, suspect due to severely depressed LVEF
-Started on Coumadin anticoagulation 06/07/2024 for LV apical thrombus
-cardiology stopped IV heparin, had been using Lovenox pending decision on LE revasc.
- Patient and family do not want to pursue revascularization at this point, and so he has been transitioned back to anticoagulation with Eliquis
Left retroperitoneal hematoma:
-Large but stable on repeat imaging 07/01
-Hemoglobin stable, repeat H&H in a week or sooner if evidence of bleeding
Acute blood loss anemia
-Secondary to blood loss from procedures and retroperitoneal hematoma
-Status post transfusion 10 units so far this admission
Hemoglobin has recovered and on last check was 11.0. Last transfusion was 07/01.
Acute on chronic HFrEF
EF 15-20%
-Cardio eval appreciated
-Now back on oral Lasix 40 mg twice daily
-Beta-blockade with Coreg
-Restarted Entresto and spironolactone
Acute urinary retention:
-Orosco discontinued
-Voiding spontaneously
-Will monitor urine output and bladder scans
-Renal function stable
Choledocholithiasis
-ERCP 06/21 with stone identified and removed and biliary sphincterotomy performed
-GI eval appreciated
Transaminitis
� Secondary to choledocholithiasis, ERCP performed 06/21
� Resolving after ERCP
GHAZAL -resolved.
DM 2/diabetic neuropathy
-Uncontrolled, hemoglobin A1c 10.8% this admission
-DM HOSPITAL ACCOUNT MANAGER eval appreciated
-Currently Lantus 12 units twice daily and short acting insulin with meals (10 units with breakfast and lunch/ 8 units with dinner), additional sliding scale insulin as needed
-Farxiga resumed
-Gabapentin 600 mg daily on hold d/t Encephalopathy as above
Constipation
cont Miralax and Sennosides, consider Lactulose if no improvement
Mild Hyponatremia
monitor
Hyperlipidemia
-Continue statin
Nicotine dependence
DVT prophylaxis SCDs
Full code
Dispo -medically stable for discharge to SNF versus acute rehab
Anticipated Discharge: 24 - 48 hours
Subjective/Interval History
-
Date of Service: July 17, 2024
Patient seen and examined at bedside. Comfortable, no complaints. Spoke with daughter who was also present to discuss plan of care.
Objective Data
-
Vital Signs:
Vital Signs
Temp Pulse Resp BP Pulse Ox
98.6 F 62 18 101/67 97
07/17/24 11:04 07/17/24 11:04 07/17/24 11:04 07/17/24 11:04 07/17/24 11:04
I&O
07/16/24 07/17/24 07/18/24
06:59 06:59 06:59
Intake Total 1320 / 1320 1210 / 1210
Output Total 1850 / 1850 1645 / 1645 325 / 325
Balance -530 / -530 -435 / -435 -325 / -325
Review of Systems
-
History Source: Patient and Family
All other systems: Reviewed and negative
Physical Exam
-
General: No Apparent Distress
--- NOTE | 2024-07-17 14:57 | W.PN.ID1 ---
Date of Service
Date of Service: July 17, 2024
Today's Communication
- Continue cefazolin 2g IV q8 (day #24 of 42 of abx, 06/22 through 08/02)
- recommend completing 6 weeks course of IV antibiotics with AICD placement afterwards, alternatively if AICD placed prior to completion of cefazolin will consider life long suppression
- PICC placement shortly before discharge
Assessment / Plan
MSSA Bacteremia - cleared
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
PEA/v fib arrest 06/24
Large left retroperitoneal hematoma with blood-loss anemia
CVA
Encephalopathy - resolving
Dm2; uncontrolled
Choledocholithiasis s/p ERCP with 06/21 - resolved
- 06/21 and 06/22 blood cultures finalized negative
- Toe swab cx MSSA. Toe amp path: viable margin with focal osteomyelitis
- Continue cefazolin 2g IV q8 (day #24 of 42 of abx, 06/22 through 08/02)
- recommend completing 6 weeks course of IV antibiotics with AICD placement afterwards, alternatively if AICD placed prior to completion of cefazolin will consider life long suppression
- PICC placement shortly before discharge
Possible cholesterol emboli
- scattered eschars on the r forearm, nontender with mild blanching, surrounding erythema; lesions stable
- follow clinically
����������������������������������������������������������
Chief Complaint
-: Other (mssa bacteremia, possible endocarditis)
Subjective / Review of Systems
afebrile
bp stable
no events overnight
Vital Signs / Physical Exam
Vital Signs
Vital Signs
Temp Pulse Resp BP Pulse Ox
98.6 F 62 18 101/67 97
07/17/24 11:04 07/17/24 11:04 07/17/24 11:04 07/17/24 11:04 07/17/24 11:04
Physical Exam
Constitutional: No Acute Distress and Chronically Ill
Cardiovascular: Regular Rate and S1/S2; Negative Murmur or Rub
Pulmonary: Clear and Symmetric; Negative Wheezes or Rales
Gastrointestinal: Soft, Non Tender, Non Distended and Normal Bowel Sounds
Skin: Warm and Dry; Negative Rash or Jaundice
Objective Data
Lab Data
Lab Results
07/12/24 05:10
07/13/24 06:28
ESR 57 mm/hour (0-20) H 07/16/24 07:24
PT 18.8 Sec (11.4-14.6) H 06/27/24 03:27
INR 1.52 06/27/24 03:27
APTT 99.6 Sec (23.4-35.0) H 07/13/24 06:28
Estimated Creat Clear 84 ml/min 07/13/24 06:28
Lactic Acid 1.0 mmol/L (0.7-2.0) 06/26/24 08:48
Total Bilirubin 2.8 mg/dl (0.2-1.3) H 07/05/24 03:24
AST 52 U/L (17-59) 07/05/24 03:24
ALT 13 U/L (0-50) 07/05/24 03:24
Alkaline Phosphatase 150 U/L (38-126) H 07/05/24 03:24
C-Reactive Protein 19.70 mg/L (0.0-10.00) H 07/16/24 07:24
Most recent labs reviewed.
Micro Results:
06/22/24 13:23 Blood Culture - Final
Blood/Venous No Growth - Final Report
06/21/24 09:33 Blood Culture - Final
Blood/Venous No Growth - Final Report
06/22/24 14:36 Wound Culture - Final
Abscess S aureus-Methicillin Sensitive
Gram Stain - Final
06/20/24 00:42 Blood Culture - Final
Blood/Venous S aureus-Methicillin Sensitive
Gram Stain - Final
06/20/24 01:59 Blood Culture - Final
Blood/Venous S aureus-Methicillin Sensitive
Gram Stain - Final
06/18/24 16:51 Urine Culture - Final
Urine NO GROWTH
06/18/24 16:11 Influenza Types A & B (HUBER) - Final
Nasal Swab Negative for Influenza A & B, NAAT
Negative results must be combined with clinical observations
and patient history.
Nucleic Acid Amplification test (NAAT)performed on the
[employer] platform.
Imaging:
06/24/2024 ECHO (TTE): Normal LV chamber size. Severely reduced LV systolic function with EF approximately 10 to 15%. Severe global hypokinesis. Mitral valve opens normally, but is noted to have thickened leaflets and mitral annular calcification.
Mild mitral regurgitation. Please see full dictation for additional detail.
06/30/24 Brain MRI: No clear MRI evidence for an acute intracranial abnormality within the significant limitations of extensive motion artifact during this exam.
--- NOTE | 2024-07-17 15:03 | W.PN.CARDCBS ---
Addendum entered and electronically signed by Neil Burns MD 07/17/24 16:34:
I saw and examined the patient.
The Medical Lab Scientist's note was reviewed and I agree with the note.
Comment: Briefly, 63-year-old man with history of heart failure with severely reduced left ventricular ejection fraction and LV thrombus who presented initially for evaluation of word finding difficulties and was found to have acute CVA.
Earlier in the hospitalization he underwent lower extremity angiogram which was complicated by in-hospital cardiac arrest. Mental status was slow to improve but ultimately underwent left heart catheterization which showed severe multivessel CAD.
And plan is for medical management at this time. As he recovers may potentially be a candidate for revascularization in the future.
In regards to heart failure, appears euvolemic and compensated on exam. Would continue Lasix 40 mg twice daily.
In regards to his cardiac arrest, he is not considered a candidate for ICD due to bacteremia. This can be reevaluated if his blood cultures are clear off of antibiotics. There was consideration for LifeVest however it sounds like family has
decided against this. Maintaining sinus rhythm by my review of telemetry. Would continue amiodarone and beta-chris on discharge.
Stable cardiac status, we will sign off, please recall as needed
Outpatient follow-up to be arranged
Recommended cardiac meds on discharge:
Aspirin 81 mg daily
Atorvastatin 40 mg daily
Eliquis 5 mg twice daily
Entresto 49/51 mg twice daily
Carvedilol 12.5 mg twice daily
Dapagliflozin 10 mg daily
Spironolactone 25 mg daily
Lasix 40 mg twice daily
Amiodarone 200 mg daily
Original Note:
Today's Communication / Plan
-
Patient and have decided against LifeVest due to risk of inappropriate shocks
Patient is not a candidate for AICD until he has negative blood cultures off of antibiotics
Impression / Plan
-
PCP: Dr. Sherwood
Cardiology: Dr. Ny, last seen 06/2022
Impression:
Intraoperative PEA/ventricular fibrillation arrest 06/24/2024
Admitted with confusion and acute HFrEF 06/18/24
Tiny nonhemorrhagic acute/subacute infarct in the right periventricular white matter/centrum semiovale region by MRI 06/19/2024
Recent admission to [facility] for acute HF and foot wound 06/06/24 until 06/12/24
Hypotension
Acute HFrEF
CM EF 15% by echo at [facility] 06/07/24
h/o improved NICM EF 25% by echo 03/2018 and then improved to 40% by echo 06/2022
CAD
Nonobstructive CAD by cath 2017
MV CAD including 100% [employer] mid LAD, Diag-2 is large vessel with serial up to 90% stenosis in the upper branch and 80% stenosis in the lower branch,, ramus 80% mid vessel, circumflex 40 to 50% mid vessel, OM�160 to 70% mid vessel, ostial RPDA 70 to
75%, mid RPDA 70% stenosis, RPL is large with ostial eccentric 75 to 80% stenosis by cardiac cath 07/10/2024
Medication noncompliance
Newly diagnosed LV thrombus
1.5 x 1.2 cm LV apical clot on echo at [facility] 06/07/24
Chronic warfarin managed by [facility]
started for LV clot 06/07/24
Supratherapeutic INR on admission
Hyponatremia
GHAZAL on CKD 3a
Elevated LFTs
Chews tobacco
Unwitnessed fall 06/20/2024
tele reviewed and no arrhythmia
Hyperglycemia
Anemia
Left retroperitoneal hematoma by CT 06/30/24
Echo 05/30/2024: [facility], EF 15 to 20%, severe global hypokinesis and septal dyskinesis, small and organized thrombus in the LV apex measuring 1.5 x 1.2 cm, grade 3 diastolic dysfunction, at least mildly dilated RV with reduced
systolic function, mild to moderate MR, mild pericardial effusion seen posteriorly without evidence of tamponade
Echo 06/20/24 with IV echo contrast: LV ejection fraction severely reduced, 15-20% with global hypokinesis. Dilated, hypokinetic right ventricle. Biatrial dilatation. Mild MR. Mild to moderate TR. Estimated pulmonary artery systolic pressure
50-55 mmHg. Small pericardial effusion without evidence of hemodynamic compromise. No LV apical thrombus
Cardiac catheterization 07/10/2024: LM: Mild diffuse plaque. LAD: 100% [employer] in the midportion with robust right to left and left to left collaterals. Diagonal 2 to serial stenosis up to 90% upper branch followed by 80% lower branch. Ramus: 80% mid
stenosis. Left circumflex: Mid 40 to 50% stenosis. OM1 60 to 70% mid stenosis. RCA: Mild diffuse plaque. Ostial RPDA 70 to 75%, mid 70%. RPL ostial 75 to 80% stenosis followed by 50% mid stenosis. Elevated right and left-sided filling pressures
with normal cardiac output. HEMODYNAMICS : (mmHg) RA (m) : 10; RV (s/d,m) : 43/7, 10; PA (s/d, m) : 45/18, 28; PCWP (m) : 25; Cardiac Output : 5.8 L/min; Cardiac Index : 2.73 L/min/m-2; Systemic vascular resistance: 1268 dsc^(-5); Pulmonary vascular
resistance: 0.[address] angio of the chest 07/11/2024: Retroperitoneal hematoma. Small to moderate left pleural effusion with atelectasis. Small to moderate pericardial effusion measuring 17 mm posteriorly and 12 mm anteriorly. Mild increased interstitial markings of
right lung suggesting interstitial fibrosis
Plan:
-Patient was found to have MV CAD on cardiac cath 07/10/20[address] and case reviewed with CT surgery team, there are no plans for PCI or CABG at this time. Plan is for medical management only.
-Outpatient dose of Coreg 12.5 mg BID has been continued
-Outpatient dose of Entresto lowered earlier this admission due to hypotension, but BP has improved and dose increased to 49/51 mg BID as of 07/09/24
-Outpatient dose of spironolactone 25 mg daily has been continued
-Outpatient dose of Farxiga 10 mg daily has been continued
-Eliquis 5 mg BID since 07/16/24 and Hgb has been stable. Patient had LV clot by echo at [facility] 05/30/2024. Start on warfarin with INRs drawn at [facility] being managed by cardiology. Repeat echo with [facility] at 06/20/24 and no evidence of LV apical
thrombus. Primary indication for OAC is clot which is generally managed with warfarin. Will review.
-MRI brain 06/20/24 that showed a tiny nonhemorrhagic acute/subacute infarct in the right periventricular white matter/centrum semiovale region. Neurology saw the patient and felt that this may have been an incidental finding as the patient was felt
to be cognitively intact without functional decline, but had an episode of confusion with garbled speech on admission.
-Patient with large left-sided retroperitoneal hematoma 06/30/24 and received 10 units PRBCs and transfusion
-Also tolerating aspirin 81 mg daily
-Also being managed for ICM with EF 15 to 20% by echo 06/20/2024. Patient previously diagnosed with NICM and EF 25% in 2018 that improved with medical therapy to 40% by last known echo prior to this admission in 06/2022 following snf from his
longtime job in the fall the patient stopped taking all of his medications for unclear reasons and EF reduced at 15% by echo at [facility] 05/30/2024
-Diuresed earlier this admission for a PCWP 25 mmHg by [facility] on 07/10/2024. Outpatient dose of Lasix 40 mg PO BID has been continued.
-Patient had intraoperative PEA/VF arrest 06/24/24. Patient had been given propofol and fentanyl and had undergone vascular access, but no other instrumentation at the time of his event. Patient had CPR with 4 shocks, magnesium IV, amiodarone 300 mg
and then 150 mg and then ROSC. He then underwent TTM and was warmed on 06/26/2024.
-Reviewed with patient and his in the room on 07/17/24 LifeVest therapy and they do not think patient should have LifeVest because they are concerned about inappropriate shocks and that patient does not have the mental capacity to manage LifeVest
at this time. Reviewed that [facility] is not a monitored setting.
-AICD was going to be deferred for at least 6 weeks to allow for antibiotics following MSSA bacteremia this admission. Patient will need repeat blood cultures once off of antibiotics.
-No recurrence of ventricular arrhythmia, but he was loaded with 5+ grams amiodarone PO and has now transitioned to 200 mg daily.
Additional summary of admission thus far: Admitted with change in mental status and found to have small nonhemorrhagic right hemispheric CVA, recently hospitalized with LV thrombus and acute and chronic HFrEF with left lower extremity wound
infection. Also with choledocholithiasis, status post ERCP and sphincterotomy with stone extraction 06/21/24. Underwent debridement of left foot wound and partial first ray amputation with podiatry on 06/23/24. Then taken to the vascular OR on
06/24/24 for peripheral angiogram and possible intervention and upon induction of anesthesia had pulseless electrical activity degenerating into VF requiring ACLS and ultimately return of spontaneous circulation. Patient had TTM and was eventually
extubated, but has not recovered neurologically. Patient has also been receiving treatment for acute HFrEF during hospital stay. Patient also noted to have large left retroperitoneal hematoma by CT 06/30/2024 and has received 10 units PRBCs this
admission. Heparin gtt placed on hold 06/30/2024 and has not been resumed as of 07/04/2024. Aspirin restarted 07/08/24. Family agreeable to Life Vest after talking with 07/08/24 and they're looking into [facility] at for rehab.
HPI: Patient came to [facility] from home yesterday with confusion and garbled speech and was admitted for acute HF and cardiology has been consulted. Patient is a poor historian and gave me permission to call his daughter. Also reviewed 67 pages of
records from recent [facility] admission. Patient had NICM diagnosed in 2018 and with GDMT his EF improved to 40% by last echo at in 06/2022. Patient then stopped coming to cardiology appts at , but reportedly did not start following elsewhere.
Patient then retired and stopped taking his medications on a regular schedule despite reminders from family. Patient started with LE wounds 02/2024 and following with wound care center and seemed to be improving. Patient then started with a cough
and saw his PCP 05/02/24 and lungs were clear and he was started on promethazine and albuterol. Patient was then admitted to [facility] with SOB 06/06/24 and during that admission was found to have EF down to 15% and he had a new LV clot and was started
on warfarin. Patient was also d/c'd to home on Coreg, Entresto and spironolactone which are meds he had been on when he was last seen in the cardiology office in 2022. Patient was diuresed with Lasix IV and d/c'd to home on Lasix 40 mg PO BID.
Patient's daughter reports that patient was not taking meds at home and when VN came to see him he had garbled speech and was sent to the ER.
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
Subjective
Date of Service: July 17, 2024
He denies pain
Objective
Labs:
07/12/24 05:10
07/13/24 06:28
Labs
Hgb 11.0 g/dL (13.0-18.0) L 07/12/24 05:10
Hct 32.9 % (39.0-52.0) L 07/12/24 05:10
Plt Count 349 10^3/uL (130-400) 07/12/24 05:10
PT 18.8 Sec (11.4-14.6) H 06/27/24 03:27
INR 1.52 06/27/24 03:27
APTT 99.6 Sec (23.4-35.0) H 07/13/24 06:28
Sodium 140 mmol/L (135-145) 07/13/24 06:28
Potassium 3.6 mmol/L (3.5-5.1) 07/13/24 06:28
BUN 24 mg/dl (9-20) H 07/13/24 06:28
Creatinine 1.0 mg/dL (0.7-1.3) 07/13/24 06:28
Glucose 141 mg/dl (70-99) H 07/13/24 06:28
Vital Signs and I&O:
Vital Signs
Temp Pulse Resp BP Pulse Ox
98.6 F 62 18 101/67 97
07/17/24 11:04 07/17/24 11:04 07/17/24 11:04 07/17/24 11:04 07/17/24 11:04
Vital Signs
Temp Pulse Resp BP Pulse Ox
98.6 F 62 18 101/67 97
07/17/24 11:04 07/17/24 11:04 07/17/24 11:04 07/17/24 11:04 07/17/24 11:04
Intake & Output
07/15/24 07/16/24 07/17/24 07/18/24
06:59 06:59 06:59 06:59
Intake Total 1260 / 1260 1320 / 1320 1210 / 1210
Output Total 1375 / 1375 1850 / 1850 1645 / 1645 325 / 325
Balance -115 / -115 -530 / -530 -435 / -435 -325 / -325
Physical Exam
Physical Exam
GEN: NAD. Awake, alert and pleasant
HEENT: MMM
LUNGS: RA. No audible wheeze
CV: SR on tele
ABD: ND
EXT: No edema.
[2024-07-17 16:36] LABS: Glucose - Point of Care 285 mg/dl (70-99)
[2024-07-17] MEDS: NOVOLOG FLEXPEN 8 UNITS SC (16:53)
[2024-07-17] MEDS: NOVOLOG FLEXPEN-LOW RESISTANCE 3 UNITS SC (16:53)
[2024-07-17] MEDS: LIPITOR 40 MG PO (17:13)
[2024-07-17 22:01] LABS: Glucose - Point of Care 166 mg/dl (70-99)
[2024-07-18] VITALS (9 sets, daily range): BP systolic 110–169; BP diastolic 66–98; PULSE 67; BMI 21.4
[2024-07-18] MEDS: ANCEF 10 IV ×3 (06:27→22:05)
[2024-07-18 07:16] LABS: Glucose - Point of Care 148 mg/dl (70-99)
[2024-07-18] MEDS: LANTUS 0.12 UNITS SC (08:10)
[2024-07-18] MEDS: NOVOLOG FLEXPEN 10 UNITS SC (08:11)
[2024-07-18] MEDS: FARXIGA 10 MG PO (08:12)
[2024-07-18] MEDS: MIRALAX 17 GRAMS PO (08:12)
[2024-07-18] MEDS: ENTRESTO 49 MG/51 MG 1 TAB PO ×2 (08:12→20:33)
[2024-07-18] MEDS: PROTONIX 40 MG PO (08:12)
[2024-07-18] MEDS: NOVOLOG FLEXPEN-LOW RESISTANCE SC (08:12)
[2024-07-18] MEDS: ELIQUIS 5 MG PO ×2 (08:13→20:33)
[2024-07-18] MEDS: SENOKOT 17.2 MG PO ×2 (08:13→20:36)
[2024-07-18] MEDS: ALDACTONE 25 MG PO (08:13)
[2024-07-18] MEDS: PACERONE 200 MG PO (08:14)
[2024-07-18] MEDS: COREG 12.5 MG PO ×2 (08:14→20:36)
[2024-07-18] MEDS: LOW STRENGTH ASPIRIN 81 MG PO (08:14)
[2024-07-18] MEDS: LASIX 40 MG PO ×2 (08:14→17:38)
--- NOTE | 2024-07-18 09:05 | PN.DE.MGMTRT ---
Insulin Management
- -
07/18/2024: Diabetes Management Follow up
63 year old male who presented to ER on 06/18/24 with report of AMS changes, of staring, garbled speech, confusion, and balance difficulty lasting an unclear amount of time. Of note, pt was recently admitted at [facility] for LV thrombus
and HFrEF (on Coumadin).
PMH: NICM, mild MR, HTN, Hypercholesterolemia Renal insufficiency, RLE Cellulitis, nicotine use and IDDM. Prior to admission was taking Levemir 20 units BID, Humalog 5 units AC and Farxiga 10mg daily prior to admission. A1C 10.8%.
Pt was also noted for a chronic nonhealing left foot wound as well as a more acute gangrenous left hallux and associated foot infection. He underwent a partial first ray resection on 06/23.
OR 06/24/24 for RLE percutaneous revascularization. Upon anesthesia induction patient PEA/Vfib arrested and underwent ACLS until ROSC was achieved and procedure was aborted.
07/10 cardiac cath - significant multivessel CAD, R & L elevated filling pressures. For CT surgery evaluation.
Patient awake, alert, oriented, sitting up in bed, offers no complaints, able to discuss diabetes care plan.
Cr 1.0, eGFR >60 today. Speech eval on 07/02, recommend minced moist diet. 07/15 diet advanced to REGULAR, pt hx of uncontrolled diabetes.
07/15 premeal glucose 227 to 332 while on REGULAR DIET, 07/16 modified diet to 2000 inna ADA diet and adjusted AC insulin dose.
07/17 pre-lunch and Pre-dinner blood sugars escalated to 210 and 285. HS blood sugar was 166, pt received Lantus 12 units, FBG 148 this AM.
Will increase Lantus to 14 units BID and AC NovoLog 12 units at breakfast and lunch.
Cont Farxiga 10mg daily and NovoLog 8 units at dinner.
Will cont to follow. Discussed with nurse.
Diabetes History
- -
Type of Diabetes: 2 requiring insulin
Pre-Admission Diabetes Regimen
Lab Results
Hemoglobin A1c 10.8 % (4.0-5.6) H 06/19/24 05:43
Insulin Pump Settings
IP Diabetes Regimen
07/17/24 07/17/24 07/17/24
11:57 16:35 22:00
POC Glucose 210 H 285 H 166 H
07/18/24
07:15
POC Glucose 148 H
Meal type: Dinner
Meal type: Lunch
Meal type: Breakfast
Amount consumed: 50%
Amount consumed: 50%
Amount consumed: 75%
Patient Education
[2024-07-18] MEDS: TIGAN 200 MG IM ×2 (11:29→18:16)
--- NOTE | 2024-07-18 11:35 | CM ---
Chart reviewed
Spoke with Carl Mccabe. Pt denied at [facility] can accept on Monday. Requesting PICC line be placed prior to discharge
Requesting weekly f/u at [facility] - reports she will reach out to Podiatry
Will need auth
Plan - anticipate transfer to [facility] Monday; will need auth
[2024-07-18 12:05] LABS: % Basophils 0.8 % (0-2); % Eosinophils 2.2 % (0-6); % Immature Granulocytes 0.5 % (0-0.5); % Monocytes 10.6 % (1.7-9.3); % Neutrophils 74.9 % (42.2-75.2); Absolute Basophils 0.1 10^3/uL (0-0.2); Absolute Eosinophils 0.1 10^3/uL (0-0.7); Absolute Lymphocytes 0.7 10^3/uL (1.2-3.4); Absolute Monocytes 0.6 10^3/uL (0.1-0.6); Absolute Neutrophils 4.4 10^3/uL (1.4-6.5); Hematocrit 36.1 % (39.0-52.0); Mean Corp Hgb Conc. 33.2 g/dL (33.0-37.0); Mean Corpuscular Volume 93.3 fL (80.0-94.0); Mean Platelet Volume 10.7 fL (7.4-10.4); Nucleated Red Blood Cells % 0 % (-); Platelet Count 302 10^3/uL (130-400); Red Blood Cell Count 3.87 10^6/uL (4.70-6.10); Red Cell Dist. Width 17.7 % (11.5-14.5); White Blood Cell Count 5.9 10^3/uL (4.8-10.8)
[2024-07-18 12:15] LABS: Glucose - Point of Care 238 mg/dl (70-99)
[2024-07-18 12:38] LABS: Troponin I 0.044 ng/ml
[2024-07-18 12:39] LABS: ALT (SGPT) 10 U/L (0-50); AST (SGOT) 53 U/L (17-59); Albumin 3.4 g/dl (3.5-5.0); Alkaline Phosphatase 149 U/L (38-126); Blood Urea Nitrogen 35 mg/dl (9-20); Calcium 8.9 mg/dl (8.4-10.2); Carbon Dioxide 32 mmol/L (22-30); Chloride 99 mmol/L (98-107); Estimated Creatinine Clearance 69 ml/min; Glucose 267 mg/dl (70-99); Potassium 4.4 mmol/L (3.5-5.1); Sodium 139 mmol/L (135-145); Total Bilirubin 2.2 mg/dl (0.2-1.3); Total Protein 7.2 g/dl (6.3-8.2); eGFR > 60.00
--- NOTE | 2024-07-18 12:48 | W.PN.HOSP.TC ---
Today's Communication/Plan
-
Assessment / Plan
Assessment / Plan
Gen-nauseous and vomiting
HEENT-NC, AT, anicteric, clear oral mm
Neck-supple
CV-reg, no M, +S1/S2
Lungs-clear B/L
Abd-soft, NT, ND
Ext-no edema
Musculoskeletal-no cyanosis, clubbing
Skin-warm and dry, left lower extremity wound VAC in place
Neuro- right proximal hip weakness, right hip flexor weakness
Psych-calm, cooperative
Nausea and vomiting:
- Unclear etiology
- Will use Tigan considering prolonged QTc
- Check CT abdomen pelvis
- Troponin elevated but downtrending compared to previous, will check EKG
PEA/Vfib arrest -following Anesthesia Induction 06/24/2024
Acute Anoxic Encephalopathy
-Underwent 3 rounds of ACLS and 4 defibrillations as per Cardio before ROSC was achieved
-ECHO post-code appreciated EF 10-15% no significant change from prior ECHO 06/20/24
-weaned off pressor support
-TTM completed, mental status significantly improved
-Extubated 06/27, downgraded to IMU
-Brain MRI 06/29/24 noted no acute abn though limited study d/t motion defects
-Cardiology initially recommended LifeVest, however patient not be able to manage this due to his anoxic brain injury, no current plan for LifeVest, will reevaluate possibility of ICD after completing antibiotic course
-Low-dose aspirin resumed 07/08
- Medically stable for discharge to [facility] for acute rehab on Saturday 07/22, patient can be limited weightbearing to left heel with transfers
MSSA bacteremia - possible MV endocarditis as per ID.
-Blood cultures from 06/20 positive for MSSA, repeat cultures from 06/22 negative
-Suspect secondary to left hallux wet gangrene, which itself is suspected due to embolic effect, status post amputation
-Antibiotics now narrowed to cefazolin 2 g IV every 8 hours, antibiotics to be completed 08/02, PICC line placement prior to discharge to acute rehab
-Repeat transthoracic echo 06/24 notable for thickened mitral valves
-Appreciate guidance from ID
Left hallux gangrene/acute osteomyelitis
-Suspect secondary to embolism as also caused stroke
-wound cx pos MSSA
-Status post partial amputation in the OR with podiatry 06/23
-Planned for revascularization 06/24 which was aborted d/t PE/Vfib arrest as above
-Continue local wound care, antibiotics with cefazolin
-Patient and family do not want to pursue revascularization at this time due to significant cardiovascular risks, will continue antibiotics and local wound care
- Medically stable for discharge to [facility] for acute rehab on Saturday 07/22, patient can be limited weightbearing to left heel with transfers
Acute stroke - Suspect secondary to cardiac emboli
� Acute/subacute infarct in the right periventricular white matter/centrum semiovale region
� Currently holding anticoagulation due to large left retroperitoneal hematoma
� Neurology consult appreciated
� Carotids unremarkable
- Medically stable for discharge to [facility] for acute rehab on Saturday 07/22, patient can be limited weightbearing to left heel with transfers
-Restarted aspirin 81 mg daily
Right lower extremity weakness
-likely acute on chronic. Of note patient was discharged from [facility] June 12 using crutches. Has had difficulty lifting his right leg when getting out of a car requiring him to use his arms to lift the right thigh up.
-Appreciate neurology input. Differential diagnosis includes pre-existing myopathy and/or superimposed right lumbosacral plexopathy due to right psoas hematoma.
-Previous CT scan from July 01 demonstrates intramuscular hematomas in the right psoas and iliacus muscles.
-Repeat CT July 10 without contrast demonstrates stability of hematomas. No change.
- Medically stable for discharge to [facility] for acute rehab on Saturday 07/22, patient can be limited weightbearing to left heel with transfers
Multivessel CAD
-noted on cardiac catheterization 07/10. CT surgery recommending against bypass surgery.
-Goal-directed medical therapy recommended.
-Should he develop ACS or anginal symptoms then PCI with high risk stenting recommended.
reported hx LV thrombus
-Dx at [facility] 2 weeks prior to arrival for this hospitalization, suspect due to severely depressed LVEF
-Started on Coumadin anticoagulation 06/07/2024 for LV apical thrombus
- Now anticoagulating with Eliquis
Left retroperitoneal hematoma:
-Large but stable on repeat imaging 07/01
-Hemoglobin stable, repeat H&H in a week or sooner if evidence of bleeding
Acute blood loss anemia
-Secondary to blood loss from procedures and retroperitoneal hematoma
-Status post transfusion 10 units so far this admission
Hemoglobin has recovered and on last check was 11.0. Last transfusion was 07/01.
Acute on chronic HFrEF
EF 15-20%
-Cardio eval appreciated
-Now back on oral Lasix 40 mg twice daily
-Beta-blockade with Coreg
-Restarted Entresto and spironolactone
Acute urinary retention:
-Orosco discontinued
-Voiding spontaneously
-Will monitor urine output and bladder scans
-Renal function stable
Choledocholithiasis
-ERCP 06/21 with stone identified and removed and biliary sphincterotomy performed
-GI eval appreciated
Transaminitis
� Secondary to choledocholithiasis, ERCP performed 06/21
� Resolving after ERCP
GHAZAL -resolved.
DM 2/diabetic neuropathy
-Uncontrolled, hemoglobin A1c 10.8% this admission
-DM MANAGER OF PHARMACY eval appreciated
-Currently Lantus 12 units twice daily and short acting insulin with meals (10 units with breakfast and lunch/ 8 units with dinner), additional sliding scale insulin as needed
-Farxiga resumed
-Gabapentin 600 mg daily on hold d/t Encephalopathy as above
Constipation
cont Miralax and Sennosides, consider Lactulose if no improvement
Mild Hyponatremia
monitor
Hyperlipidemia
-Continue statin
Nicotine dependence
DVT prophylaxis SCDs
Full code
Dispo -medically stable for discharge to acute rehab, accepted at [facility] Saturday 07/22
Anticipated Discharge: > 48 hours
Subjective/Interval History
-
Date of Service: July 18, 2024
Patient was seen and examined at bedside. He has had multiple episodes of vomiting today. Antiemetic given. Will obtain abdominal imaging.
Objective Data
-
Labs:
Laboratory Results
07/18/24
11:57
WBC 5.9
Hgb 12.0 L
Hct 36.1 L
Plt Count 302
Sodium 139
Potassium 4.4
Chloride 99
Carbon Dioxide 32 H
BUN 35 H
Creatinine 1.2
Glucose 267 H
Calcium 8.9
Total Bilirubin 2.2 H
AST 53
ALT 10
Alkaline Phosphatase 149 H
Vital Signs:
Vital Signs
Temp Pulse Resp BP Pulse Ox
98.0 F 69 18 110/66 98
07/18/24 11:05 07/18/24 11:05 07/18/24 11:05 07/18/24 11:05 07/18/24 11:05
I&O
07/17/24 07/18/24 07/19/24
06:59 06:59 06:59
Intake Total 1210 / 1210 480 / 480
Output Total 1645 / 1645 1950 / 1950
Balance -435 / -435 -1470 / -1470
Review of Systems
-
History Source: Patient
Abdomen/GI: Reports Nausea and Vomiting
Physical Exam
-
General: No Apparent Distress
--- NOTE | 2024-07-18 13:37 | W.PN.ID1 ---
Date of Service
Date of Service: July 18, 2024
Today's Communication
- Continue cefazolin 2g IV q8 (day #25 of 42 of abx, 06/22 through 08/02)
- recommend completing 6 weeks course of IV antibiotics with AICD placement afterwards, alternatively if AICD placed prior to completion of cefazolin will consider life long suppression
- PICC placement ordered
Assessment / Plan
MSSA Bacteremia - cleared
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
PEA/v fib arrest 06/24
Large left retroperitoneal hematoma with blood-loss anemia
CVA
Encephalopathy - resolving
Dm2; uncontrolled
Choledocholithiasis s/p ERCP with 06/21 - resolved
- 06/21 and 06/22 blood cultures finalized negative
- Toe swab cx MSSA. Toe amp path: viable margin with focal osteomyelitis
- Continue cefazolin 2g IV q8 (day #25 of 42 of abx, 06/22 through 08/02)
- recommend completing 6 weeks course of IV antibiotics with AICD placement afterwards, alternatively if AICD placed prior to completion of cefazolin will consider life long suppression
- PICC placement ordered
Bilious vomiting
- imaging per primary team
����������������������������������������������������������
Chief Complaint
-: Other (mssa bacteremia, possible endocarditis)
Subjective / Review of Systems
afebrile
bp stable
having bilious vomiting this afternoon
last BM was yesterdy
Vital Signs / Physical Exam
Vital Signs
Vital Signs
Temp Pulse Resp BP Pulse Ox
98.0 F 69 18 110/66 98
07/18/24 11:05 07/18/24 11:05 07/18/24 11:05 07/18/24 11:05 07/18/24 11:05
Physical Exam
Constitutional: No Acute Distress
Cardiovascular: Regular Rate and S1/S2; Negative Murmur or Rub
Pulmonary: Clear and Symmetric; Negative Wheezes or Rales
Gastrointestinal: Soft, Tender (mildly tender), Non Distended and Normal Bowel Sounds
Skin: Warm and Dry; Negative Rash or Jaundice
Objective Data
Lab Data
Lab Results
07/18/24 11:57
07/18/24 11:57
ESR 57 mm/hour (0-20) H 07/16/24 07:24
PT 18.8 Sec (11.4-14.6) H 06/27/24 03:27
INR 1.52 06/27/24 03:27
APTT 99.6 Sec (23.4-35.0) H 07/13/24 06:28
Estimated Creat Clear 69 ml/min 07/18/24 11:57
Lactic Acid 1.0 mmol/L (0.7-2.0) 06/26/24 08:48
Total Bilirubin 2.2 mg/dl (0.2-1.3) H 07/18/24 11:57
AST 53 U/L (17-59) 07/18/24 11:57
ALT 10 U/L (0-50) 07/18/24 11:57
Alkaline Phosphatase 149 U/L (38-126) H 07/18/24 11:57
C-Reactive Protein 19.70 mg/L (0.0-10.00) H 07/16/24 07:24
Most recent labs reviewed.
Micro Results:
06/22/24 13:23 Blood Culture - Final
Blood/Venous No Growth - Final Report
06/21/24 09:33 Blood Culture - Final
Blood/Venous No Growth - Final Report
06/22/24 14:36 Wound Culture - Final
Abscess S aureus-Methicillin Sensitive
Gram Stain - Final
06/20/24 00:42 Blood Culture - Final
Blood/Venous S aureus-Methicillin Sensitive
Gram Stain - Final
06/20/24 01:59 Blood Culture - Final
Blood/Venous S aureus-Methicillin Sensitive
Gram Stain - Final
06/18/24 16:51 Urine Culture - Final
Urine NO GROWTH
06/18/24 16:11 Influenza Types A & B (HUBER) - Final
Nasal Swab Negative for Influenza A & B, NAAT
Negative results must be combined with clinical observations
and patient history.
Nucleic Acid Amplification test (NAAT)performed on the
[employer] platform.
Imaging:
06/24/2024 ECHO (TTE): Normal LV chamber size. Severely reduced LV systolic function with EF approximately 10 to 15%. Severe global hypokinesis. Mitral valve opens normally, but is noted to have thickened leaflets and mitral annular calcification.
Mild mitral regurgitation. Please see full dictation for additional detail.
06/30/24 Brain MRI: No clear MRI evidence for an acute intracranial abnormality within the significant limitations of extensive motion artifact during this exam.
[2024-07-18] MEDS: NOVOLOG FLEXPEN-LOW RESISTANCE 2 UNITS SC (13:47)
[2024-07-18] MEDS: NOVOLOG FLEXPEN SC ×2 (13:47→18:10)
--- NOTE | 2024-07-18 15:31 | VATNOTE ---
Midline order in place. Patient feeling nauseous and having abdominal pain. Patient requested if midline be ok to place tomorrow 07/19. Dr Juan made aware.
[2024-07-18] MEDS: LIPITOR 40 MG PO (17:38)
[2024-07-18 17:40] LABS: Glucose - Point of Care 174 mg/dl (70-99)
[2024-07-18] MEDS: NOVOLOG FLEXPEN-LOW RESISTANCE 1 UNITS SC (18:11)
--- NOTE | 2024-07-18 19:18 | PTCARENOTE ---
Patient began vomiting at around 11 AM. Attending notified; new orders received. Patient went to abdominal CT at around 4 pm, after feeling a little better. Patient began vomiting again at around 5:30 pm; given IM Tigan. At around 6:40 pm patient
reports chest pressure and heaviness. VS and ECG obtained; attending and cross coverage notified. Received new order for repeat troponin.
[2024-07-18 20:18] LABS: Troponin I 0.038 ng/ml
[2024-07-18 21:25] LABS: Glucose - Point of Care 182 mg/dl (70-99)
[2024-07-18] MEDS: LANTUS 0.14 UNITS SC (22:06)
[2024-07-19] VITALS (9 sets, daily range): BP systolic 87–123; BP diastolic 50–82; PULSE 64–73; O2SAT 98; BMI 21.2
[2024-07-19] MEDS: ANCEF 10 IV ×3 (06:06→21:07)
[2024-07-19 07:13] LABS: Glucose - Point of Care 242 mg/dl (70-99)
[2024-07-19] MEDS: LANTUS 0.14 UNITS SC ×2 (08:39→21:47)
[2024-07-19] MEDS: NOVOLOG FLEXPEN-LOW RESISTANCE 2 UNITS SC (08:40)
[2024-07-19] MEDS: NOVOLOG FLEXPEN 12 UNITS SC ×2 (08:40→12:53)
[2024-07-19] MEDS: PROTONIX 40 MG PO (08:41)
[2024-07-19] MEDS: FARXIGA 10 MG PO (08:41)
[2024-07-19] MEDS: MIRALAX 17 GRAMS PO (08:41)
[2024-07-19] MEDS: ELIQUIS 5 MG PO ×2 (08:42→20:37)
[2024-07-19] MEDS: SENOKOT 17.2 MG PO ×2 (08:42→20:37)
[2024-07-19] MEDS: LOW STRENGTH ASPIRIN 81 MG PO (08:42)
[2024-07-19] MEDS: ENTRESTO 49 MG/51 MG 1 TAB PO ×2 (08:43→20:37)
[2024-07-19] MEDS: COREG 12.5 MG PO ×2 (08:43→20:35)
[2024-07-19] MEDS: PACERONE 200 MG PO (08:43)
[2024-07-19] MEDS: LASIX 40 MG PO ×2 (08:44→16:33)
[2024-07-19] MEDS: ALDACTONE 25 MG PO (08:44)
--- NOTE | 2024-07-19 10:13 | PN.DE.MGMTRT ---
Insulin Management
- -
07/19/2024: Diabetes Management Follow up
63 year old male who presented to ER on 06/18/24 with report of AMS changes, of staring, garbled speech, confusion, and balance difficulty lasting an unclear amount of time. Of note, pt was recently admitted at [facility] for LV thrombus
and HFrEF (on Coumadin).
PMH: NICM, mild MR, HTN, Hypercholesterolemia Renal insufficiency, RLE Cellulitis, nicotine use and IDDM. Prior to admission was taking Levemir 20 units BID, Humalog 5 units AC and Farxiga 10mg daily prior to admission. A1C 10.8%.
Pt was also noted for a chronic nonhealing left foot wound as well as a more acute gangrenous left hallux and associated foot infection. He underwent a partial first ray resection on 06/23. OR 06/24/24 for RLE percutaneous revascularization. Upon
anesthesia induction patient PEA/Vfib arrested and underwent ACLS until ROSC was achieved and procedure was aborted. 07/10 cardiac cath - significant multivessel CAD, R & L elevated filling pressures. Patient and family do not want to pursue
revascularization at this time due to significant cardiovascular risks
Patient awake, alert, oriented, sitting up in bed, offers no complaints, able to discuss diabetes care plan. at bedside, supportive.
Pt reports an episode of nausea and vomiting yesterday where he was not able to tolerate any oral intake. Glucose was markedly elevated up to 238.
HS blood sugar was 182, pt received Lantus 14 units, FBG 242 this AM. Will not make any changes to current regimen but will closely monitor glucose trend and adjust dosing if necessary.
Cont Lantus 14 units BID and AC NovoLog 12 units at breakfast/ lunch and 8 units at dinner, cont Farxiga 10mg daily. Will cont to follow. Discussed with nurse.
Diabetes History
- -
Type of Diabetes: 2 requiring insulin
Pre-Admission Diabetes Regimen
07/18/24
11:57
Creatinine 1.2
Lab Results
Hemoglobin A1c 10.8 % (4.0-5.6) H 06/19/24 05:43
Insulin Pump Settings
IP Diabetes Regimen
07/18/24 07/18/24 07/18/24
11:57 12:14 17:39
Glucose 267 H
POC Glucose 238 H 174 H
07/18/24 07/19/24
21:23 07:11
Glucose
POC Glucose 182 H 242 H
Meal type: Lunch
Meal type: Breakfast
Amount consumed: 0
Amount consumed: 100%
Patient Education
--- NOTE | 2024-07-19 10:36 | W.PN.HOSP.TC ---
Today's Communication/Plan
-
Assessment / Plan
Assessment / Plan
Gen-nauseous and vomiting
HEENT-NC, AT, anicteric, clear oral mm
Neck-supple
CV-reg, no M, +S1/S2
Lungs-clear B/L
Abd-soft, NT, ND
Ext-no edema
Musculoskeletal-no cyanosis, clubbing
Skin-warm and dry, left lower extremity wound VAC in place
Neuro- right proximal hip weakness, right hip flexor weakness
Psych-calm, cooperative
Nausea and vomiting:
- Unclear etiology, improving
-CT abdomen pelvis with no acute findings
-EKG unremarkable, troponins continue to trend down
- Will use Tigan considering prolonged QTc
- Now tolerating p.o. diet cautiously, will monitor
PEA/Vfib arrest -following Anesthesia Induction 06/24/2024
Acute Anoxic Encephalopathy
-Underwent 3 rounds of ACLS and 4 defibrillations as per Cardio before ROSC was achieved
-ECHO post-code appreciated EF 10-15% no significant change from prior ECHO 06/20/24
-weaned off pressor support
-TTM completed, mental status significantly improved
-Extubated 06/27
-Brain MRI 06/29/24 noted no acute abn though limited study d/t motion defects
-Cardiology initially recommended LifeVest, however patient not be able to manage this due to his anoxic brain injury, no current plan for LifeVest, will reevaluate possibility of ICD after completing antibiotic course
-Low-dose aspirin resumed 07/08
- Medically stable for discharge to [facility] for acute rehab on Saturday 07/22, patient can be limited weightbearing to left heel with transfers
MSSA bacteremia - possible MV endocarditis as per ID.
-Blood cultures from 06/20 positive for MSSA, repeat cultures from 06/22 negative
-Suspect secondary to left hallux wet gangrene, which itself is suspected due to embolic effect, status post amputation
-Antibiotics now narrowed to cefazolin 2 g IV every 8 hours, antibiotics to be completed 08/02, midline line placement prior to discharge to acute rehab
-Repeat transthoracic echo 06/24 notable for thickened mitral valves
-Appreciate guidance from ID
Left hallux gangrene/acute osteomyelitis
-Suspect secondary to embolism as also caused stroke
-wound cx pos MSSA
-Status post partial amputation in the OR with podiatry 06/23
-Planned for revascularization 06/24 which was aborted d/t PE/Vfib arrest as above
-Continue local wound care, antibiotics with cefazolin
-Patient and family do not want to pursue revascularization at this time due to significant cardiovascular risks, will continue antibiotics and local wound care
- Medically stable for discharge to [facility] for acute rehab on Saturday 07/22, patient can be limited weightbearing to left heel with transfers
Acute stroke - Suspect secondary to cardiac emboli
� Acute/subacute infarct in the right periventricular white matter/centrum semiovale region
� Currently holding anticoagulation due to large left retroperitoneal hematoma
� Neurology consult appreciated
� Carotids unremarkable
- Medically stable for discharge to [facility] for acute rehab on Saturday 07/22, patient can be limited weightbearing to left heel with transfers
-Restarted aspirin 81 mg daily
Right lower extremity weakness
-likely acute on chronic. Of note patient was discharged from [facility] June 12 using crutches. Has had difficulty lifting his right leg when getting out of a car requiring him to use his arms to lift the right thigh up.
-Appreciate neurology input. Differential diagnosis includes pre-existing myopathy and/or superimposed right lumbosacral plexopathy due to right psoas hematoma.
-Previous CT scan from July 01 demonstrates intramuscular hematomas in the right psoas and iliacus muscles.
-Repeat CT July 10 without contrast demonstrates stability of hematomas. No change.
- Medically stable for discharge to [facility] for acute rehab on Saturday 07/22, patient can be limited weightbearing to left heel with transfers
Multivessel CAD
-noted on cardiac catheterization 07/10. CT surgery recommending against bypass surgery.
-Goal-directed medical therapy recommended.
-Should he develop ACS or anginal symptoms then PCI with high risk stenting recommended.
reported hx LV thrombus
-Dx at [facility] 2 weeks prior to arrival for this hospitalization, suspect due to severely depressed LVEF
-Started on Coumadin anticoagulation 06/07/2024 for LV apical thrombus which was later held due to retroperitoneal bleed
- Now restarted on anticoagulation with Eliquis
Left retroperitoneal hematoma:
-Large but stable on repeat imaging 07/01
-Hemoglobin stable, repeat H&H in a week or sooner if evidence of bleeding
Acute blood loss anemia
-Secondary to blood loss from procedures and retroperitoneal hematoma
-Status post transfusion 10 units so far this admission
Hemoglobin has recovered and on last check was 12.0. Last transfusion was 07/01.
Acute on chronic HFrEF
EF 15-20%
-Cardio eval appreciated
-Now back on oral Lasix 40 mg twice daily
-Beta-blockade with Coreg
-Restarted Entresto and spironolactone
Acute urinary retention:
-Orosco discontinued
-Voiding spontaneously
-Will monitor urine output and bladder scans
-Renal function stable
Choledocholithiasis
-ERCP 06/21 with stone identified and removed and biliary sphincterotomy performed
-GI eval appreciated
Transaminitis
� Secondary to choledocholithiasis, ERCP performed 06/21
� Resolving after ERCP
GHAZAL -resolved.
DM 2/diabetic neuropathy
-Uncontrolled, hemoglobin A1c 10.8% this admission
-DM ARMATURE BALANCER eval appreciated
-Currently Lantus 14 units twice daily and short acting insulin with meals (12 units with breakfast and lunch/ 8 units with dinner), additional sliding scale insulin as needed
-Farxiga resumed
-Gabapentin 600 mg daily on hold d/t Encephalopathy as above
Constipation
Resolved
cont Miralax and Sennosides, consider Lactulose if no improvement
Mild Hyponatremia
Resolved, monitor
Hyperlipidemia
-Continue statin
Nicotine dependence
DVT prophylaxis SCDs
Full code
Dispo -medically stable for discharge to acute rehab, accepted at [facility] Saturday 07/22
Anticipated Discharge: > 48 hours
Subjective/Interval History
-
Date of Service: July 19, 2024
Patient was seen and examined at bedside this morning. Nausea improved this morning and he is cautiously tolerating his breakfast. No significant acute findings on CT imaging of his abdomen and pelvis yesterday. EKG was nonacute and troponins
continued to trend down. Planning midline placement today anticipation of discharge to acute rehab on Monday.
Objective Data
-
Vital Signs:
Vital Signs
Temp Pulse Resp BP Pulse Ox
98.1 F 81 18 123/71 97
07/19/24 07:36 07/19/24 08:44 07/19/24 07:36 07/19/24 08:44 07/19/24 07:36
I&O
07/18/24 07/19/24 07/20/24
06:59 06:59 06:59
Intake Total 480 / 480 1200 / 1200
Output Total 1950 / 1950 1375 / 1375
Balance -1470 / -1470 -175 / -175
Review of Systems
-
History Source: Patient
All other systems: Reviewed and negative
Abdomen/GI: Reports Nausea
Physical Exam
-
General: No Apparent Distress
[2024-07-19 11:10] LABS: Glucose - Point of Care 381 mg/dl (70-99)
--- NOTE | 2024-07-19 12:13 | CM ---
Chart reviewed
Pt accepted at [facility] for Monday admission
Family aware
Will need auth
Plan - [facility] on Monday pending auth and medically ready
[2024-07-19] MEDS: NOVOLOG FLEXPEN-LOW RESISTANCE 5 UNITS SC (12:54)
--- NOTE | 2024-07-19 14:00 | WOUNDNOTE ---
WO RN Note: Changed patient's L foot vac dressing. Wound more granular. Patient tolerated dressing change. LIZ Castro assisted. Patient incontinent of soft brown stool and some urine. Kelsie care given. Sacral shaped silicone border foam changed.
Updated LIZ Melton. Kelsie sacral wound skin less red. Patient can turn self in bed. Patient turned to R semi side lying position. Heels off bed with TruVue lite boots. Skin on L heel intact. R heel with existing skin fissure. Plan is [facility] transfer on
Monday. Next vac dressing change due Monday. If goes to rehab on Monday, nursing to remove L foot vac dressing and apply saline gauze dressing for transfer and rehab nurse to place the vac dressing with their equipment.
[2024-07-19 17:07] LABS: Glucose - Point of Care 260 mg/dl (70-99)
[2024-07-19] MEDS: NOVOLOG FLEXPEN 8 UNITS SC (17:36)
[2024-07-19] MEDS: LIPITOR 40 MG PO (17:36)
[2024-07-19] MEDS: NOVOLOG FLEXPEN-LOW RESISTANCE 3 UNITS SC (17:37)
--- NOTE | 2024-07-19 19:52 | VATNOTE ---
Patient removed ML. Primary RN notified VAT. Will place PIV and discuss another ML placed when D/C'ed.
[2024-07-19] MEDS: FLUSH (NSS) 2 FLUSH IV (21:07)
[2024-07-19 21:47] LABS: Glucose - Point of Care 145 mg/dl (70-99)
[2024-07-20 03:28] VITALS: BP 100/57
[2024-07-20 04:54] VITALS: BMI 22.9
[2024-07-20] MEDS: ANCEF 10 IV ×3 (06:04→22:00)
[2024-07-20] MEDS: FLUSH (NSS) 2 FLUSH IV ×2 (06:05→22:07)
[2024-07-20 07:15] VITALS: BP 104/64
[2024-07-20 07:32] LABS: Glucose - Point of Care 95 mg/dl (70-99)
[2024-07-20] MEDS: NOVOLOG FLEXPEN-LOW RESISTANCE SC (08:48)
[2024-07-20] MEDS: LANTUS 0.14 UNITS SC ×2 (08:49→22:10)
[2024-07-20] MEDS: LASIX 40 MG PO ×2 (08:49→15:15)
[2024-07-20] MEDS: SENOKOT 17.2 MG PO ×2 (08:49→20:14)
[2024-07-20] MEDS: ELIQUIS 5 MG PO ×2 (08:49→20:14)
[2024-07-20] MEDS: LOW STRENGTH ASPIRIN 81 MG PO (08:50)
[2024-07-20] MEDS: PACERONE 200 MG PO (08:50)
[2024-07-20] MEDS: COREG 12.5 MG PO ×2 (08:50→20:08)
[2024-07-20] MEDS: FARXIGA 10 MG PO (08:50)
[2024-07-20] MEDS: MIRALAX 17 GRAMS PO (08:50)
[2024-07-20] MEDS: PROTONIX 40 MG PO (08:50)
[2024-07-20] MEDS: ALDACTONE 25 MG PO (08:50)
[2024-07-20] MEDS: ENTRESTO 49 MG/51 MG 1 TAB PO ×2 (08:50→20:14)
[2024-07-20] MEDS: NOVOLOG FLEXPEN 12 UNITS SC ×2 (10:28→12:45)
[2024-07-20 11:10] VITALS: BP 123/68
--- NOTE | 2024-07-20 11:22 | W.PN.UPDATE ---
Update Note
Progress Note Update
Patient has removed his 3rd line.
At this point risks of midline/PICC outweigh possible benefits
can use PIVs or if not feasible at [facility] then I can consider a transition to oral therapy.
[2024-07-20 11:45] LABS: Glucose - Point of Care 218 mg/dl (70-99)
[2024-07-20] MEDS: NOVOLOG FLEXPEN-LOW RESISTANCE 2 UNITS SC (12:44)
--- NOTE | 2024-07-20 14:20 | W.PN.HOSP.TC ---
Today's Communication/Plan
-
Assessment / Plan
Assessment / Plan
Gen-nauseous and vomiting
HEENT-NC, AT, anicteric, clear oral mm
Neck-supple
CV-reg, no M, +S1/S2
Lungs-clear B/L
Abd-soft, NT, ND
Ext-no edema
Musculoskeletal-no cyanosis, clubbing
Skin-warm and dry, left lower extremity wound VAC in place
Neuro- right proximal hip weakness, right hip flexor weakness
Psych-calm, cooperative
PEA/Vfib arrest -following Anesthesia Induction 06/24/2024
Acute Anoxic Encephalopathy
-Underwent 3 rounds of ACLS and 4 defibrillations as per Cardio before ROSC was achieved
-ECHO post-code appreciated EF 10-15% no significant change from prior ECHO 06/20/24
-weaned off pressor support
-TTM completed, mental status significantly improved
-Extubated 06/27
-Brain MRI 06/29/24 noted no acute abn though limited study d/t motion defects
-Cardiology initially recommended LifeVest, however patient not be able to manage this due to his anoxic brain injury, no current plan for LifeVest, will reevaluate possibility of ICD after completing antibiotic course
-Low-dose aspirin resumed 07/08
- Medically stable for discharge to [facility] for acute rehab on Saturday 07/22, patient can be limited weightbearing to left heel with transfers
MSSA bacteremia
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
-Blood cultures from 06/20 positive for MSSA, repeat cultures from 06/22 negative
-Suspect secondary to left hallux wet gangrene, which itself is suspected due to embolic effect, status post amputation
-Antibiotics now narrowed to cefazolin 2 g IV every 8 hours, antibiotics to be completed 08/02, midline line pulled out by patient overnight, will continue antibiotics via peripheral IV with possible transition to p.o. if needed
-Appreciate guidance from ID
Nausea and vomiting:
- Unclear etiology, improving
-CT abdomen pelvis with no acute findings
-EKG unremarkable, troponins continue to trend down
- Will use Tigan considering prolonged QTc
- Now tolerating p.o. diet cautiously, will monitor
Left hallux gangrene/acute osteomyelitis
-Suspect secondary to embolism as also caused stroke
-wound cx pos MSSA
-Status post partial amputation in the OR with podiatry 06/23
-Planned for revascularization 06/24 which was aborted d/t PE/Vfib arrest as above
-Continue local wound care, antibiotics with cefazolin
-Patient and family do not want to pursue revascularization at this time due to significant cardiovascular risks, will continue antibiotics and local wound care
- Medically stable for discharge to [facility] for acute rehab on Saturday 07/22, patient can be limited weightbearing to left heel with transfers
Acute stroke - Suspect secondary to cardiac emboli
� Acute/subacute infarct in the right periventricular white matter/centrum semiovale region
� Currently holding anticoagulation due to large left retroperitoneal hematoma
� Neurology consult appreciated
� Carotids unremarkable
- Medically stable for discharge to [facility] for acute rehab on Saturday 07/22, patient can be limited weightbearing to left heel with transfers
-Restarted aspirin 81 mg daily
Right lower extremity weakness
-likely acute on chronic. Of note patient was discharged from [facility] June 12 using crutches. Has had difficulty lifting his right leg when getting out of a car requiring him to use his arms to lift the right thigh up.
-Appreciate neurology input. Differential diagnosis includes pre-existing myopathy and/or superimposed right lumbosacral plexopathy due to right psoas hematoma.
-Previous CT scan from July 01 demonstrates intramuscular hematomas in the right psoas and iliacus muscles.
-Repeat CT July 10 without contrast demonstrates stability of hematomas. No change.
- Medically stable for discharge to [facility] for acute rehab on Saturday 07/22, patient can be limited weightbearing to left heel with transfers
Multivessel CAD
-noted on cardiac catheterization 07/10. CT surgery recommending against bypass surgery.
-Goal-directed medical therapy recommended.
-Should he develop ACS or anginal symptoms then PCI with high risk stenting recommended.
reported hx LV thrombus
-Dx at [facility] 2 weeks prior to arrival for this hospitalization, suspect due to severely depressed LVEF
-Started on Coumadin anticoagulation 06/07/2024 for LV apical thrombus which was later held due to retroperitoneal bleed
- Now restarted on anticoagulation with Eliquis
Left retroperitoneal hematoma:
-Large but stable on repeat imaging 07/01
-Hemoglobin stable, repeat H&H in a week or sooner if evidence of bleeding
Acute blood loss anemia
-Secondary to blood loss from procedures and retroperitoneal hematoma
-Status post transfusion 10 units so far this admission
Hemoglobin has recovered and on last check was 12.0. Last transfusion was 07/01.
Acute on chronic HFrEF
EF 15-20%
-Cardio eval appreciated
-Now back on oral Lasix 40 mg twice daily
-Beta-blockade with Coreg
-Restarted Entresto and spironolactone
Acute urinary retention:
-Orosco discontinued
-Voiding spontaneously
-Will monitor urine output and bladder scans
-Renal function stable
Choledocholithiasis
-ERCP 06/21 with stone identified and removed and biliary sphincterotomy performed
-GI eval appreciated
Transaminitis
� Secondary to choledocholithiasis, ERCP performed 06/21
� Resolving after ERCP
GHAZAL -resolved.
DM 2/diabetic neuropathy
-Uncontrolled, hemoglobin A1c 10.8% this admission
-DM COT[employer]KER eval appreciated
-Currently Lantus 14 units twice daily and short acting insulin with meals (12 units with breakfast and lunch/ 8 units with dinner), additional sliding scale insulin as needed
-Farxiga resumed
-Gabapentin 600 mg daily on hold d/t Encephalopathy as above
Constipation
Resolved
cont Miralax and Sennosides, consider Lactulose if no improvement
Mild Hyponatremia
Resolved, monitor
Hyperlipidemia
-Continue statin
Nicotine dependence
DVT prophylaxis SCDs
Full code
Dispo -medically stable for discharge to acute rehab, accepted at [facility] Saturday 07/22
Anticipated Discharge: 24 - 48 hours
Subjective/Interval History
-
Date of Service: July 20, 2024
Patient was seen and examined at bedside this morning. He pulled out his midline overnight. No plans for midline or PICC placement. Will continue antibiotics via peripheral IV. Alternatively could switch to oral antibiotic regimen if antibiotics
via peripheral IV are not feasible when at acute rehab.
Objective Data
-
Vital Signs:
Vital Signs
Temp Pulse Resp BP Pulse Ox
98.2 F 81 16 123/68 97
07/20/24 11:10 07/20/24 11:10 07/20/24 11:10 07/20/24 11:10 07/20/24 11:10
I&O
07/19/24 07/20/24 07/21/24
06:59 06:59 06:59
Intake Total 1200 / 1200 1140 / 1140
Output Total 1375 / 1375 600 / 600
Balance -175 / -175 540 / 540
Review of Systems
-
History Source: Patient
All other systems: Reviewed and negative
Physical Exam
-
General: No Apparent Distress
[2024-07-20 15:15] VITALS: BP 114/65
--- NOTE | 2024-07-20 16:19 | W.PN.UPDATE ---
Update Note
Progress Note Update
Hospital course:
Mr. Sanchez is a 63-year-old male with a medical history of HFrEF (EF 40%, diagnosed 06/10/2022), insulin-dependent diabetes mellitus, right leg cellulitis, and nicotine use (dip) who presented with encephalopathy and dysarthria. He had recently been
at [facility] 2 weeks prior to this admission (06/06-06/12) where he was found to have worsening cardiomyopathy with a further depressed EF of 15 to 20% and an LV thrombus. He was started on anticoagulation with warfarin at that time and
reportedly had been compliant with his medications.
His INR was supratherapeutic at the time of this admission with an INR of 4.1 and so his warfarin was held. He was found to have an acute CVA with an infarct noted in the right periventricular white matter/centrum semiovale region likely
cardioembolic in nature from his known LV thrombus.
He was also found to have gangrenous left hallux also likely cardioembolic in nature.
Blood cultures resulted positive for MSSA on 06/20. He was treated with antibiotics and for his left hallux pathology and bacteremia.
Additionally, he had significantly elevated LFTs and imaging findings concerning for choledocholithiasis. He underwent ERCP on 06/21 after his INR was below 2, during which stone was identified and removed and biliary sphincterotomy was performed.
He was anticoagulated with IV heparin pending further procedures with plan to restart anticoagulation with Eliquis when able. Podiatry then brought him to the OR on 06/23 for partial left hallux amputation which he tolerated well. On 06/24 he was
brought to the OR with vascular surgery for planned revascularization of his left lower extremity. However, his procedure was aborted after patient went into PEA/V-fib arrest following anesthesia induction. ROSC was achieved after 3 rounds of ACLS
and 4 defibrillations. He underwent targeted temperature management and required vasopressor support post ROSC. He was ultimately able to be weaned off of vasopressors and was extubated on 06/27. He had signs of anoxic brain injury after his
cardiac arrest. Repeat MRI on 06/29/2024 showed no new abnormalities although was limited due to motion defects.
He had continual drops in hemoglobin over few days and CT imaging showed a large left retroperitoneal hematoma measuring 13 x 12.4 x 3.3 cm, with bilateral hematoma and psoas and iliac us muscles. Anticoagulation with IV heparin was held. He was
transfused a total of 10 units PRBCs during this admission. Ultimately anticoagulation was able to be restarted with Eliquis and his hemoglobin has since remained stable. Low-dose aspirin was also resumed on 07/08.
He underwent left heart catheterization on 07/10 which noted multivessel disease. Cardiothoracic surgery has advised against bypass surgery considering high risk. He will be continued on goal-directed medical therapy. If he does develop ACS/anginal
symptoms then could proceed with high risk PCI. Considering his severely reduced ejection fraction and cardiac arrest, he would benefit from ICD placement. However, this would have to wait until he completes his course of antibiotics for
bacteremia. Patient is not able to manage a LifeVest in the meantime due to his cognitive disability from anoxic brain injury.
He was continued on antibiotics and local wound care for his left hallux. A wound VAC was also placed and remains in place. He is limited weightbearing to left heel for transfers with no weightbearing to left toes due to wound VAC. He will be
continued on IV cefazolin 2 g every 8 hours through 08/02/2024 for MSSA bacteremia. Multiple midlines/PICC were placed for continued treatment after hospital discharge however patient 'accidentally' pulled each of them out due to intermittent
confusion and cognitive disability following his anoxic brain injury. He can continue on IV antibiotics via a peripheral IV line to complete the prescribed course. Alternatively, antibiotics could be switched to an oral regimen if needed with
guidance from infectious disease team.
His blood glucose has been closely monitored and his long and short acting insulin regimen has been aggressively titrated by diabetes nurse practitioner. His blood glucose will need continued monitoring and insulin regimen should be titrated as
needed. His Farxiga was resumed. Gabapentin has been held due to encephalopathy.
He has made significant clinical improvement despite his multiple severe comorbidities. He is now medically stable and ready for ongoing physical and occupational therapy. He is anticipated to start therapy at [facility] on Saturday 07/22.
[2024-07-20 17:34] LABS: Glucose - Point of Care 159 mg/dl (70-99)
[2024-07-20] MEDS: NOVOLOG FLEXPEN-LOW RESISTANCE 1 UNITS SC (17:46)
[2024-07-20] MEDS: LIPITOR 40 MG PO (17:46)
[2024-07-20] MEDS: NOVOLOG FLEXPEN 8 UNITS SC (17:47)
[2024-07-20 19:00] VITALS: BP 101/58
[2024-07-20 21:35] LABS: Glucose - Point of Care 140 mg/dl (70-99)
[2024-07-20 23:05] VITALS: BP 104/62
[2024-07-21] VITALS (8 sets, daily range): BP systolic 87–127; BP diastolic 47–65; PULSE 67–68; O2SAT 96; BMI 21.2
[2024-07-21] MEDS: ANCEF 10 IV ×3 (05:31→22:48)
[2024-07-21] MEDS: FLUSH (NSS) 2 FLUSH IV (05:31)
[2024-07-21 08:20] LABS: Glucose - Point of Care 167 mg/dl (70-99)
[2024-07-21] MEDS: ENTRESTO 49 MG/51 MG 1 TAB PO (08:25)
[2024-07-21] MEDS: ALDACTONE 25 MG PO (08:26)
[2024-07-21] MEDS: PACERONE 200 MG PO (08:26)
[2024-07-21] MEDS: MIRALAX 17 GRAMS PO (08:26)
[2024-07-21] MEDS: COREG 12.5 MG PO (08:26)
[2024-07-21] MEDS: PROTONIX 40 MG PO (08:26)
[2024-07-21] MEDS: LOW STRENGTH ASPIRIN 81 MG PO (08:26)
[2024-07-21] MEDS: LASIX 40 MG PO (08:26)
[2024-07-21] MEDS: ELIQUIS 5 MG PO ×2 (08:26→20:52)
[2024-07-21] MEDS: FARXIGA 10 MG PO (08:26)
[2024-07-21] MEDS: SENOKOT 17.2 MG PO ×2 (08:27→20:52)
[2024-07-21] MEDS: LANTUS 0.14 UNITS SC (08:27)
[2024-07-21 09:23] LABS: Blood Urea Nitrogen 65 mg/dl (9-20); Calcium 8.2 mg/dl (8.4-10.2); Carbon Dioxide 26 mmol/L (22-30); Chloride 97 mmol/L (98-107); Estimated Creatinine Clearance 46 ml/min; Glucose 149 mg/dl (70-99); Sodium 130 mmol/L (135-145); eGFR 41.26
[2024-07-21] MEDS: NOVOLOG FLEXPEN-LOW RESISTANCE 1 UNITS SC ×2 (09:51→13:21)
[2024-07-21] MEDS: NOVOLOG FLEXPEN 12 UNITS SC ×2 (09:52→13:21)
[2024-07-21 10:28] LABS: Red Cell Dist. Width 17.6 % (11.5-14.5)
[2024-07-21 10:29] LABS: % Basophils 0.2 % (0-2); % Eosinophils 0.1 % (0-6); % Immature Granulocytes 0.6 % (0-0.5); % Lymphocytes 2.7 % (20.5-51.1); % Monocytes 7.2 % (1.7-9.3); % Neutrophils 89.2 % (42.2-75.2); Hematocrit 30.7 % (39.0-52.0); Hemoglobin 10.5 g/dL (13.0-18.0); Mean Corp Hgb Conc. 34.2 g/dL (33.0-37.0); Mean Corpuscular Hgb 30.9 pg (27.0-31.0); Mean Corpuscular Volume 90.3 fL (80.0-94.0); Mean Platelet Volume 10.5 fL (7.4-10.4); Platelet Count 187 10^3/uL (130-400); White Blood Cell Count 16.8 10^3/uL (4.8-10.8)
[2024-07-21 10:30] LABS: Absolute Immature Granulocytes 0.1 10^3/uL (0-0.05); Absolute Lymphocytes 0.5 10^3/uL (1.2-3.4); Absolute Monocytes 1.2 10^3/uL (0.1-0.6); Nucleated Red Blood Cells % 0 % (-)
[2024-07-21 11:49] LABS: Glucose - Point of Care 182 mg/dl (70-99)
--- NOTE | 2024-07-21 11:58 | CM ---
CM reviewed chart.
Pt accepted at [facility] for Monday admission if medically stable for dc-CM/SW will need to reconfirm bed Monday.
Will require PT and OT within 24hrs of dc for insurance auth.
CM/SW will continue to follow to ensure a safe and timley dc.
--- NOTE | 2024-07-21 15:03 | W.PN.HOSP.TC ---
Today's Communication/Plan
-
Assessment / Plan
Assessment / Plan
Gen-awake and alert, no acute distress
HEENT-NC, AT, anicteric, clear oral mm
Neck-supple
CV-reg, no M, +S1/S2
Lungs-clear B/L
Abd-soft, NT, ND
Ext-no edema
Musculoskeletal-no cyanosis, clubbing
Skin-warm and dry, left lower extremity wound VAC in place
Neuro- right proximal hip weakness, right hip flexor weakness
Psych-calm, cooperative
PEA/Vfib arrest -following Anesthesia Induction 06/24/2024
Acute Anoxic Encephalopathy
-Underwent 3 rounds of ACLS and 4 defibrillations as per Cardio before ROSC was achieved
-ECHO post-code appreciated EF 10-15% no significant change from prior ECHO 06/20/24
-weaned off pressor support
-TTM completed, mental status significantly improved
-Extubated 06/27
-Brain MRI 06/29/24 noted no acute abn though limited study d/t motion defects
-Cardiology initially recommended LifeVest, however patient not be able to manage this due to his anoxic brain injury, no current plan for LifeVest, will reevaluate possibility of ICD after completing antibiotic course
-Low-dose aspirin resumed 07/08
- Medically stable for discharge to [facility] for acute rehab on Saturday 07/22, patient can be limited weightbearing to left heel with transfers
MSSA bacteremia
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
-Blood cultures from 06/20 positive for MSSA, repeat cultures from 06/22 negative
-Suspect secondary to left hallux wet gangrene, which itself is suspected due to embolic effect, status post amputation
-Antibiotics now narrowed to cefazolin 2 g IV every 8 hours, antibiotics to be completed 08/02, midline line and PICC pulled out multiple times, will continue antibiotics via peripheral IV with possible transition to p.o. if needed
-Appreciate guidance from ID
Nausea and vomiting:
- Resolved
-CT abdomen pelvis with no acute findings
-EKG unremarkable, troponins continue to trend down
- Will use Tigan considering prolonged QTc
- Now tolerating p.o. diet
Left hallux gangrene/acute osteomyelitis
-Suspect secondary to embolism as also caused stroke
-wound cx pos MSSA
-Status post partial amputation in the OR with podiatry 06/23
-Planned for revascularization 06/24 which was aborted d/t PE/Vfib arrest as above
-Continue local wound care, antibiotics with cefazolin
-Patient and family do not want to pursue revascularization at this time due to significant cardiovascular risks, will continue antibiotics and local wound care
- Medically stable for discharge to [facility] for acute rehab on Saturday 07/22, patient can be limited weightbearing to left heel with transfers
Acute stroke - Suspect secondary to cardiac emboli
� Acute/subacute infarct in the right periventricular white matter/centrum semiovale region
� Currently holding anticoagulation due to large left retroperitoneal hematoma
� Neurology consult appreciated
� Carotids unremarkable
- Medically stable for discharge to [facility] for acute rehab on Saturday 07/22, patient can be limited weightbearing to left heel with transfers
-Restarted aspirin 81 mg daily
Right lower extremity weakness
-likely acute on chronic. Of note patient was discharged from [facility] June 12 using crutches. Has had difficulty lifting his right leg when getting out of a car requiring him to use his arms to lift the right thigh up.
-Appreciate neurology input. Differential diagnosis includes pre-existing myopathy and/or superimposed right lumbosacral plexopathy due to right psoas hematoma.
-Previous CT scan from July 01 demonstrates intramuscular hematomas in the right psoas and iliacus muscles.
-Repeat CT July 10 without contrast demonstrates stability of hematomas. No change.
- Medically stable for discharge to [facility] for acute rehab on Saturday 07/22, patient can be limited weightbearing to left heel with transfers
Multivessel CAD
-noted on cardiac catheterization 07/10. CT surgery recommending against bypass surgery.
-Goal-directed medical therapy recommended.
-Should he develop ACS or anginal symptoms then PCI with high risk stenting recommended.
reported hx LV thrombus
-Dx at [facility] 2 weeks prior to arrival for this hospitalization, suspect due to severely depressed LVEF
-Started on Coumadin anticoagulation 06/07/2024 for LV apical thrombus which was later held due to retroperitoneal bleed
- Now restarted on anticoagulation with Eliquis
Left retroperitoneal hematoma:
-Large but stable on repeat imaging 07/01
-Hemoglobin stable, repeat H&H in a week or sooner if evidence of bleeding
Acute blood loss anemia
-Secondary to blood loss from procedures and retroperitoneal hematoma
-Status post transfusion 10 units so far this admission
Hemoglobin has recovered and on last check was 12.0. Last transfusion was 07/01.
Acute on chronic HFrEF
EF 15-20%
-Cardio eval appreciated
-Decreased GDMT to less aggressive regimen due to hypotension 07/21
- Lasix changed from twice daily to once daily
- Decreased dose of Entresto
- Decrease Coreg from 12.5 mg twice daily to 6.25 mg twice daily
-Continue spironolactone
Acute urinary retention:
-Orosco discontinued
-Voiding spontaneously
-Will monitor urine output and bladder scans
-Renal function stable
Choledocholithiasis
-ERCP 06/21 with stone identified and removed and biliary sphincterotomy performed
-GI eval appreciated
Transaminitis
� Secondary to choledocholithiasis, ERCP performed 06/21
� Resolving after ERCP
GHAZAL -resolved.
DM 2/diabetic neuropathy
-Uncontrolled, hemoglobin A1c 10.8% this admission
-DM MANU[employer]URING [employer]SEMBLER eval appreciated
-Currently Lantus 14 units twice daily and short acting insulin with meals (12 units with breakfast and lunch/ 8 units with dinner), additional sliding scale insulin as needed
-Farxiga resumed
-Gabapentin 600 mg daily on hold d/t Encephalopathy as above
Constipation
Resolved
cont Miralax and Sennosides, consider Lactulose if no improvement
Mild Hyponatremia
Resolved, monitor
Hyperlipidemia
-Continue statin
Nicotine dependence
DVT prophylaxis SCDs
Full code
Dispo -medically stable for discharge to acute rehab, accepted at [facility] Saturday 07/22
Anticipated Discharge: 24 - 48 hours
Subjective/Interval History
-
Date of Service: July 21, 2024
Patient was seen and examined at bedside this morning. No complaints. Eagerly awaiting dispo to acute rehab tentatively planned for tomorrow 07/22.
Objective Data
-
Labs:
Laboratory Results
07/21/24
08:40
WBC 16.8 H
Hgb 10.5 L
Hct 30.7 L
Plt Count 187 D
Sodium 130 L D
Potassium 4.0
Chloride 97 L
Carbon Dioxide 26
BUN 65 H
Creatinine 1.8 H
Glucose 149 H
Calcium 8.2 L
Vital Signs:
Vital Signs
Temp Pulse Resp BP Pulse Ox
97.5 F 70 16 87/47 96
07/21/24 11:12 07/21/24 11:12 07/21/24 11:12 07/21/24 11:12 07/21/24 11:12
I&O
07/20/24 07/21/24 07/22/24
06:59 06:59 06:59
Intake Total 1140 / 1140 690 / 690
Output Total 600 / 600
Balance 540 / 540 690 / 690
Review of Systems
-
History Source: Patient
All other systems: Reviewed and negative
Physical Exam
-
General: No Apparent Distress
[2024-07-21] MEDS: DEXTROSE 50% SYRINGE 12.5 GRAMS IV (15:59)
[2024-07-21 16:03] LABS: Glucose - Point of Care 35 mg/dl (70-99)
[2024-07-21 16:14] LABS: Glucose - Point of Care 109 mg/dl (70-99)
[2024-07-21 17:01] LABS: Glucose - Point of Care 77 mg/dl (70-99)
[2024-07-21] MEDS: NOVOLOG FLEXPEN SC (17:38)
[2024-07-21] MEDS: NOVOLOG FLEXPEN-LOW RESISTANCE SC (17:39)
[2024-07-21] MEDS: LIPITOR 40 MG PO (17:42)
[2024-07-21 18:20] LABS: Glucose - Point of Care 156 mg/dl (70-99)
--- NOTE | 2024-07-21 19:56 | PTCARENOTE ---
Pt was seen by PT/OT this afternoon and found to be cold, clammy, alert to his name, BG checked and it was 35 ... Dextrose IV given rechecked BG and it was 109; changed pt, his bed, family at bedside. DR Caceres made aware and dinner insulin on
hold.
[2024-07-21 20:36] LABS: Glucose - Point of Care 214 mg/dl (70-99)
[2024-07-21] MEDS: ENTRESTO 24 MG/26 MG 1 TAB PO (20:52)
[2024-07-21] MEDS: COREG 6.25 MG PO (20:52)
[2024-07-21 22:18] LABS: Glucose - Point of Care 213 mg/dl (70-99)
[2024-07-21] MEDS: LANTUS 0.08 UNITS SC (22:49)
[2024-07-21] MEDS: LANTUS SC (23:10)
[2024-07-22 03:29] VITALS: BP 113/63
[2024-07-22 03:37] LABS: Glucose - Point of Care 201 mg/dl (70-99)
[2024-07-22 06:00] VITALS: BMI 21.6
[2024-07-22] MEDS: ANCEF 10 IV ×3 (06:09→21:14)
--- NOTE | 2024-07-22 07:10 | PN.DE.MGMTRT ---
Insulin Management
- -
07/22/2024: Diabetes Management Follow up
63 year old male who presented to ER on 06/18/24 with report of AMS changes, of staring, garbled speech, confusion, and balance difficulty lasting an unclear amount of time. Of note, pt was recently admitted at [facility] for LV thrombus
and HFrEF (on Coumadin).
PMH: NICM, mild MR, HTN, Hypercholesterolemia Renal insufficiency, RLE Cellulitis, nicotine use and IDDM. Prior to admission was taking Levemir 20 units BID, Humalog 5 units AC and Farxiga 10mg daily prior to admission. A1C 10.8%.
Pt was also noted for a chronic nonhealing left foot wound as well as a more acute gangrenous left hallux and associated foot infection. He underwent a partial first ray resection on 06/23. OR 06/24/24 for RLE percutaneous revascularization. Upon
anesthesia induction patient PEA/Vfib arrested and underwent ACLS until ROSC was achieved and procedure was aborted. 07/10 cardiac cath - significant multivessel CAD, R & L elevated filling pressures. Patient and family do not want to pursue
revascularization at this time due to significant cardiovascular risks
Pt had episode of hypoglycemia at ~ 1557, glucose 35, treated with IV dextrose up to 109. Dinner insulin held, HS glucose 213.
Cont Lantus 14 units BID. Will continue ac novolog 12 units with breakfast. Will reduce lunch Novolog to 8 units and continue 8 units at dinner with low corrective insulin. Will cont Farxiga 10mg daily.
Patient for possible transfer to [place].
Will cont to follow.
Diabetes History
- -
Type of Diabetes: 2 requiring insulin
Pre-Admission Diabetes Regimen
07/21/24
08:40
Creatinine 1.8 H
Lab Results
Hemoglobin A1c 10.8 % (4.0-5.6) H 06/19/24 05:43
Insulin Pump Settings
IP Diabetes Regimen
07/21/24 07/21/24 07/21/24
08:18 08:40 11:47
Glucose 149 H
POC Glucose 167 H 182 H
07/21/24 07/21/24 07/21/24
15:57 16:13 16:59
Glucose
POC Glucose 35 L* 109 H 77
07/21/24 07/21/24 07/21/24
18:18 20:34 22:16
Glucose
POC Glucose 156 H 214 H 213 H
07/22/24
03:36
Glucose
POC Glucose 201 H
Meal type: Dinner
Meal type: Breakfast
Amount consumed: 45%
Amount consumed: 10%
Patient Education
[2024-07-22 07:44] VITALS: BP 114/66
[2024-07-22 08:04] LABS: Glucose - Point of Care 197 mg/dl (70-99)
[2024-07-22] MEDS: PROTONIX 40 MG PO (09:01)
[2024-07-22] MEDS: FARXIGA 10 MG PO (09:01)
[2024-07-22] MEDS: SENOKOT 17.2 MG PO ×2 (09:01→21:19)
[2024-07-22] MEDS: ELIQUIS 5 MG PO ×2 (09:01→21:18)
[2024-07-22] MEDS: ALDACTONE 25 MG PO (09:01)
[2024-07-22] MEDS: LOW STRENGTH ASPIRIN 81 MG PO (09:02)
[2024-07-22] MEDS: COREG 6.25 MG PO ×2 (09:02→21:18)
[2024-07-22] MEDS: LASIX 40 MG PO (09:02)
[2024-07-22] MEDS: PACERONE 200 MG PO (09:02)
[2024-07-22] MEDS: ENTRESTO 24 MG/26 MG 1 TAB PO (09:02)
[2024-07-22] MEDS: LANTUS 0.14 UNITS SC ×2 (09:10→21:27)
[2024-07-22] MEDS: NOVOLOG FLEXPEN 12 UNITS SC (09:11)
[2024-07-22] MEDS: MIRALAX 17 GRAMS PO (09:11)
[2024-07-22] MEDS: NOVOLOG FLEXPEN-LOW RESISTANCE 1 UNITS SC ×2 (09:11→19:58)
--- NOTE | 2024-07-22 09:20 | W.PN.HOSP.TC ---
Today's Communication/Plan
-
Check labs
Echocardiogram
Hold Lasix, spironolactone, Entresto
Assessment / Plan
Assessment / Plan
Gen-awake and alert, no acute distress
HEENT-NC, AT, anicteric, clear oral mm
Neck-supple
CV-reg, no M, +S1/S2
Lungs-clear B/L
Abd-soft, NT, ND
Ext-no edema
Musculoskeletal-no cyanosis, clubbing
Skin-warm and dry, left lower extremity wound VAC in place
Neuro- right proximal hip weakness, right hip flexor weakness
Psych-calm, cooperative
PEA/Vfib arrest -following Anesthesia Induction 06/24/2024
Acute Anoxic Encephalopathy
-Underwent 3 rounds of ACLS and 4 defibrillations as per Cardio before ROSC was achieved
-ECHO post-code appreciated EF 10-15% no significant change from prior ECHO 06/20/24
Moderate pericardial effusion noted on CT abdomen/pelvis, 07/18. Check echocardiogram today. Asymptomatic. Cardiology to follow-up. Discussed with Dr. Hill.
-weaned off pressor support
-TTM completed, mental status significantly improved
-Extubated 06/27
-Brain MRI 06/29/24 noted no acute abn though limited study d/t motion defects
-Cardiology initially recommended LifeVest, however patient not be able to manage this due to his anoxic brain injury, no current plan for LifeVest, will reevaluate possibility of ICD after completing antibiotic course
-Low-dose aspirin resumed 07/08
patient can be limited weightbearing to left heel with transfers
MSSA bacteremia
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
-Blood cultures from 06/20 positive for MSSA, repeat cultures from 06/22 negative
-Suspect secondary to left hallux wet gangrene, which itself is suspected due to embolic effect, status post amputation
-Antibiotics now narrowed to cefazolin 2 g IV every 8 hours, antibiotics to be completed 08/02, midline line and PICC pulled out multiple times, will continue antibiotics via peripheral IV with possible transition to p.o. if needed
-Appreciate guidance from ID
Leukocytosis noted yesterday, labs pending for today. Afebrile.
Nausea and vomiting:
- Resolved
-CT abdomen pelvis with no acute findings
-EKG unremarkable, troponins continue to trend down
- Will use Tigan considering prolonged QTc
- Now tolerating p.o. diet
Left hallux gangrene/acute osteomyelitis
-Suspect secondary to embolism as also caused stroke
-wound cx pos MSSA
-Status post partial amputation in the OR with podiatry 06/23
-Planned for revascularization 06/24 which was aborted d/t PE/Vfib arrest as above
-Continue local wound care, antibiotics with cefazolin
-Patient and family do not want to pursue revascularization at this time due to significant cardiovascular risks, will continue antibiotics and local wound care
- Medically stable for discharge to [facility] for acute rehab on Saturday 07/22, patient can be limited weightbearing to left heel with transfers
Acute stroke - Suspect secondary to cardiac emboli
� Acute/subacute infarct in the right periventricular white matter/centrum semiovale region
� Currently holding anticoagulation due to large left retroperitoneal hematoma
� Neurology consult appreciated
� Carotids unremarkable
- Medically stable for discharge to [facility] for acute rehab on Saturday 07/22, patient can be limited weightbearing to left heel with transfers
-Restarted aspirin 81 mg daily
Right lower extremity weakness
-likely acute on chronic. Of note patient was discharged from [facility] June 12 using crutches. Has had difficulty lifting his right leg when getting out of a car requiring him to use his arms to lift the right thigh up.
-Appreciate neurology input. Differential diagnosis includes pre-existing myopathy and/or superimposed right lumbosacral plexopathy due to right psoas hematoma.
-Previous CT scan from July 01 demonstrates intramuscular hematomas in the right psoas and iliacus muscles.
-Repeat CT July 10 without contrast demonstrates stability of hematomas. No change.
patient can be limited weightbearing to left heel with transfers
Multivessel CAD
-noted on cardiac catheterization 07/10. CT surgery recommending against bypass surgery.
-Goal-directed medical therapy recommended.
-Should he develop ACS or anginal symptoms then PCI with high risk stenting recommended.
reported hx LV thrombus
-Dx at [facility] 2 weeks prior to arrival for this hospitalization, suspect due to severely depressed LVEF
-Started on Coumadin anticoagulation 06/07/2024 for LV apical thrombus which was later held due to retroperitoneal bleed
- Now restarted on anticoagulation with Eliquis
Left retroperitoneal hematoma: Repeat CT abdomen/pelvis angiogram July 18 shows no findings of active contrast extravasation or bleeding.
-Large but stable on repeat imaging 07/01
-Hemoglobin stable, repeat H&H in a week or sooner if evidence of bleeding
Acute blood loss anemia
-Secondary to blood loss from procedures and retroperitoneal hematoma
-Status post transfusion 10 units so far this admission
Hemoglobin has recovered and on last check was 12.0. Last transfusion was 07/01.
Acute on chronic HFrEF
EF 15-20%
-Cardio eval appreciated
-Decreased GDMT to less aggressive regimen due to hypotension 07/21
- Lasix changed from twice daily to once daily
- Decreased dose of Entresto
- Decrease Coreg from 12.5 mg twice daily to 6.25 mg twice daily
-Continue spironolactone
Acute urinary retention:
-Orosco discontinued
-Voiding spontaneously
-Will monitor urine output and bladder scans
-Renal function stable
Choledocholithiasis
-ERCP 06/21 with stone identified and removed and biliary sphincterotomy performed
-GI eval appreciated
Transaminitis
� Secondary to choledocholithiasis, ERCP performed 06/21
� Resolving after ERCP
GHAZAL -creatinine up to 1.8 yesterday, labs pending for today. Hold furosemide, spironolactone, Entresto.
DM 2/diabetic neuropathy -hypoglycemic yesterday afternoon, likely due to anorexia, did not eat as much lunch.
-Uncontrolled, hemoglobin A1c 10.8% this admission
-DM SCALPER OPERATOR eval appreciated
-Currently Lantus 14 units twice daily and short acting insulin with meals (12 units with breakfast and lunch/ 8 units with dinner), additional sliding scale insulin as needed
-Farxiga resumed
-Gabapentin 600 mg daily on hold d/t Encephalopathy as above
Constipation
Resolved
cont Miralax and Sennosides, consider Lactulose if no improvement
Mild Hyponatremia -sodium 130 on July 21, repeat labs pending.
Hyperlipidemia
-Continue statin
Nicotine dependence
DVT prophylaxis SCDs
Full code
Dispo -awaiting transfer to [facility] if medically stable. Awaiting repeat labs and echocardiogram today. Updated at the bedside.
Anticipated Discharge: Within 24 hours
Subjective/Interval History
-
Date of Service: July 22, 2024
Patient seen and examined. No complaints.
Objective Data
-
Labs:
Laboratory Results
07/22/24 07/22/24
09:01 09:02
WBC Pending
Hgb Pending
Hct Pending
Plt Count Pending
Sodium Pending
Potassium Pending
Chloride Pending
Carbon Dioxide Pending
BUN Pending
Creatinine Pending
Glucose Pending
Calcium Pending
Vital Signs:
Vital Signs
Temp Pulse Resp BP Pulse Ox
98.8 F 76 18 114/66 95
07/22/24 07:44 07/22/24 07:44 07/22/24 07:44 07/22/24 07:44 07/22/24 07:44
I&O
07/21/24 07/22/24 07/23/24
06:59 06:59 06:59
Intake Total 690 / 690 300 / 300
Output Total 715 / 715
Balance 690 / 690 -415 / -415
Review of Systems
-
History Source: Patient
All other systems: Reviewed and negative
[2024-07-22 09:53] LABS: % Basophils 0.1 % (0-2); % Eosinophils 0.3 % (0-6); % Immature Granulocytes 0.5 % (0-0.5); % Lymphocytes 1.9 % (20.5-51.1); % Monocytes 7.4 % (1.7-9.3); % Neutrophils 89.8 % (42.2-75.2); Absolute Eosinophils 0.1 10^3/uL (0-0.7); Absolute Immature Granulocytes 0.1 10^3/uL (0-0.05); Absolute Lymphocytes 0.3 10^3/uL (1.2-3.4); Absolute Monocytes 1.1 10^3/uL (0.1-0.6); Absolute Neutrophils 13.4 10^3/uL (1.4-6.5); Hemoglobin 10.7 g/dL (13.0-18.0); Mean Corp Hgb Conc. 34.5 g/dL (33.0-37.0); Mean Corpuscular Hgb 31.4 pg (27.0-31.0); Mean Corpuscular Volume 90.9 fL (80.0-94.0); Mean Platelet Volume 11.3 fL (7.4-10.4); Nucleated Red Blood Cells % 0 % (-); Platelet Count 197 10^3/uL (130-400); Red Blood Cell Count 3.41 10^6/uL (4.70-6.10); Red Cell Dist. Width 17.1 % (11.5-14.5); White Blood Cell Count 14.9 10^3/uL (4.8-10.8)
--- NOTE | 2024-07-22 10:18 | CM ---
Addendum entered by Nirali Allen 07/22/24 16:53:
Called [employer] to initiate auth for acute inpatient rehab [phone]
Spoke with Ericka - reference number - [id number]
Information reviewed
Pending reference # [id number]
Clinicals faxed to [phone]
Addendum entered by Nirali Allen 07/22/24 11:23:
Updated pt and at bedside
For echo today
Original Note:
Rcd call from Estelle from [facility]
No beds today - anticipates bed in tomorrow
Will need auth
[facility] NPI - [id number]
Dr Napoles NPI - [id number]
Dr Luke made aware
Labs pending
Will obtain auth when medically ready
Plan - anticipate [facility] when auth obtained and medically ready
[2024-07-22 11:05] VITALS: BP 102/57
[2024-07-22 12:25] LABS: Blood Urea Nitrogen 58 mg/dl (9-20); Calcium 8.2 mg/dl (8.4-10.2); Carbon Dioxide 24 mmol/L (22-30); Chloride 96 mmol/L (98-107); Estimated Creatinine Clearance 56 ml/min; Glucose 199 mg/dl (70-99); Potassium 4.1 mmol/L (3.5-5.1); Sodium 131 mmol/L (135-145); eGFR 51.35
[2024-07-22 12:38] VITALS: BP 105/64; PULSE 68; PULSE 70; O2SAT 96
[2024-07-22 12:41] LABS: Glucose - Point of Care 215 mg/dl (70-99)
[2024-07-22] MEDS: NOVOLOG FLEXPEN-LOW RESISTANCE 2 UNITS SC (13:28)
[2024-07-22] MEDS: NOVOLOG FLEXPEN 8 UNITS SC ×2 (13:29→19:58)
--- NOTE | 2024-07-22 13:44 | WOUNDNOTE ---
R CALF (LATERAL POSTERIOR)
--- NOTE | 2024-07-22 13:48 | WOUNDNOTE ---
[facility] RN note: Patient for transfer to [facility] tomorrow. L medial forefoot wound slightly less deep in center. Vac dressing changed L foot. Patient tolerated well. Sacral small ulcer with yellow fibrin, suspect stage 3 with local red skin d/t moisture
and possible yeast. Sacral, R calf, L lateral foot and R heel dressings changed. L ankle ulcer healed. Penis adhesive related skin tear healing (R lateral side healed, L lateral pink), 1.6x2 inch silicone border foam changed. Heels off bed with
TruVue lite boots. Skin on L heel intact. Skin fissure same on R heel. Patient turned to L semi side lying position using a foam wedge and pillow. Instructed patient to stay on his sides at 30 degree turn as much as possible. He can turn self in
bed. He tends to move onto his back after being positioned on his side. Updated Dr. Luke who approved amending/updating his wound care. Discussed with LIZ Donnelly. Nursing to remove vac dressing and apply saline gauze dressing on day of discharge
and [facility] to apply their own vac dressing.
[2024-07-22 15:16] VITALS: BP 101/64
[2024-07-22] MEDS: NSS 1000 IV (17:00)
[2024-07-22] MEDS: LIPITOR 40 MG PO (17:01)
--- NOTE | 2024-07-22 17:04 | W.PN.UPDATE ---
Update Note
Progress Note Update
Final echo report pending, but there is a small pericardial effusion that appears stable and unchanged compared to last echo on 06/24/2024.
[2024-07-22 18:08] LABS: Glucose - Point of Care 151 mg/dl (70-99)
[2024-07-22 19:52] LABS: Glucose - Point of Care 180 mg/dl (70-99)
[2024-07-22] MEDS: HYDROPHOR 1 APPLIC TOPICAL (21:18)
[2024-07-22 21:28] LABS: Glucose - Point of Care 189 mg/dl (70-99)
[2024-07-22 23:35] VITALS: BP 127/65
[2024-07-23] MEDS: ANCEF 10 IV ×3 (05:22→22:50)
[2024-07-23 05:24] VITALS: BMI 21.2
[2024-07-23 07:12] LABS: % Basophils 0.3 % (0-2); % Eosinophils 0.9 % (0-6); % Immature Granulocytes 0.4 % (0-0.5); % Lymphocytes 3.7 % (20.5-51.1); % Monocytes 8.4 % (1.7-9.3); % Neutrophils 86.3 % (42.2-75.2); Absolute Eosinophils 0.1 10^3/uL (0-0.7); Absolute Immature Granulocytes 0.1 10^3/uL (0-0.05); Absolute Lymphocytes 0.4 10^3/uL (1.2-3.4); Absolute Monocytes 0.9 10^3/uL (0.1-0.6); Absolute Neutrophils 9.7 10^3/uL (1.4-6.5); Hematocrit 30.8 % (39.0-52.0); Hemoglobin 10.4 g/dL (13.0-18.0); Mean Corp Hgb Conc. 33.8 g/dL (33.0-37.0); Mean Corpuscular Volume 91.7 fL (80.0-94.0); Mean Platelet Volume 11.8 fL (7.4-10.4); Nucleated Red Blood Cells % 0 % (-); Platelet Count 190 10^3/uL (130-400); Red Blood Cell Count 3.36 10^6/uL (4.70-6.10); Red Cell Dist. Width 16.9 % (11.5-14.5); White Blood Cell Count 11.2 10^3/uL (4.8-10.8)
--- NOTE | 2024-07-23 07:14 | PN.DE.MGMTRT ---
Insulin Management
- -
07/23/2024: Diabetes Management Follow up
63 year old male who presented to ER on 06/18/24 with report of AMS changes, of staring, garbled speech, confusion, and balance difficulty lasting an unclear amount of time. Of note, pt was recently admitted at [facility] for LV thrombus
and HFrEF (on Coumadin).
PMH: NICM, mild MR, HTN, Hypercholesterolemia Renal insufficiency, RLE Cellulitis, nicotine use and IDDM. Prior to admission was taking Levemir 20 units BID, Humalog 5 units AC and Farxiga 10mg daily prior to admission. A1C 10.8%.
Pt was also noted for a chronic nonhealing left foot wound as well as a more acute gangrenous left hallux and associated foot infection. He underwent a partial first ray resection on 06/23. OR 06/24/24 for RLE percutaneous revascularization. Upon
anesthesia induction patient PEA/Vfib arrested and underwent ACLS until ROSC was achieved and procedure was aborted. 07/10 cardiac cath - significant multivessel CAD, R & L elevated filling pressures. Patient and family do not want to pursue
revascularization at this time due to significant cardiovascular risks
07/23 Glucose range 07/22 was 151 to 215, no further hypoglycemia. Will continue Lantus 14 units BID with ac novolog 12 units with breakfast, Novolog 8 units for lunch and dinner with low corrective insulin. Will cont Farxiga 10mg daily.
Patient for possible transfer to [place].
Will cont to follow.
Diabetes History
- -
Type of Diabetes: 2 requiring insulin
Pre-Admission Diabetes Regimen
07/22/24
09:44
Creatinine 1.5 H
Lab Results
Hemoglobin A1c 10.8 % (4.0-5.6) H 06/19/24 05:43
Insulin Pump Settings
IP Diabetes Regimen
07/22/24 07/22/24 07/22/24
08:02 09:44 12:40
Glucose 199 H
POC Glucose 197 H 215 H
07/22/24 07/22/24 07/22/24
18:07 19:50 21:26
Glucose
POC Glucose 151 H 180 H 189 H
Meal type: Lunch
Meal type: Breakfast
Amount consumed: 100%
Amount consumed: 100%
Patient Education
[2024-07-23 07:55] VITALS: BP 140/76
[2024-07-23 08:02] LABS: Glucose - Point of Care 136 mg/dl (70-99)
--- NOTE | 2024-07-23 09:41 | W.PN.HOSP.TC ---
Today's Communication/Plan
-
BMP
Discharge planning
Assessment / Plan
Assessment / Plan
Gen-awake and alert, no acute distress
HEENT-NC, AT, anicteric, clear oral mm
Neck-supple
CV-reg, no M, +S1/S2
Lungs-clear B/L
Abd-soft, NT, ND
Ext-no edema
Musculoskeletal-no cyanosis, clubbing
Skin-warm and dry, left lower extremity wound VAC in place
Neuro- right proximal hip weakness, right hip flexor weakness
Psych-calm, cooperative
PEA/Vfib arrest -following Anesthesia Induction 06/24/2024
Acute Anoxic Encephalopathy
-Underwent 3 rounds of ACLS and 4 defibrillations as per Cardio before ROSC was achieved
-ECHO post-code appreciated EF 10-15% no significant change from prior ECHO 06/20/24
Moderate pericardial effusion noted on CT abdomen/pelvis, 07/18. Check echocardiogram today. Asymptomatic. Cardiology to follow-up. Discussed with Dr. Hill.
-weaned off pressor support
-TTM completed, mental status significantly improved
-Extubated 06/27
-Brain MRI 06/29/24 noted no acute abn though limited study d/t motion defects
-Cardiology initially recommended LifeVest, however patient not be able to manage this due to his anoxic brain injury, no current plan for LifeVest, will reevaluate possibility of ICD after completing antibiotic course
-Low-dose aspirin resumed 07/08
patient can be limited weightbearing to left heel with transfers
MSSA bacteremia
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
-Blood cultures from 06/20 positive for MSSA, repeat cultures from 06/22 negative
-Suspect secondary to left hallux wet gangrene, which itself is suspected due to embolic effect, status post amputation
-Antibiotics now narrowed to cefazolin 2 g IV every 8 hours, antibiotics to be completed 08/02, midline line and PICC pulled out multiple times, will continue antibiotics via peripheral IV with possible transition to p.o. if needed
-Appreciate guidance from ID
Leukocytosis noted, now trending down. Afebrile.
Nausea and vomiting:
- Resolved
-CT abdomen pelvis with no acute findings
-EKG unremarkable, troponins continue to trend down
- Will use Tigan considering prolonged QTc
- Now tolerating p.o. diet
Left hallux gangrene/acute osteomyelitis
-Suspect secondary to embolism as also caused stroke
-wound cx pos MSSA
-Status post partial amputation in the OR with podiatry 06/23
-Planned for revascularization 06/24 which was aborted d/t PE/Vfib arrest as above
-Continue local wound care, antibiotics with cefazolin
-Patient and family do not want to pursue revascularization at this time due to significant cardiovascular risks, will continue antibiotics and local wound care
- Medically stable for discharge to [facility] for acute rehab on Saturday 07/22, patient can be limited weightbearing to left heel with transfers
Acute stroke - Suspect secondary to cardiac emboli
� Acute/subacute infarct in the right periventricular white matter/centrum semiovale region
� Currently holding anticoagulation due to large left retroperitoneal hematoma
� Neurology consult appreciated
� Carotids unremarkable
- Medically stable for discharge to [facility] for acute rehab on Saturday 07/22, patient can be limited weightbearing to left heel with transfers
-Restarted aspirin 81 mg daily
Right lower extremity weakness
-likely acute on chronic. Of note patient was discharged from [facility] June 12 using crutches. Has had difficulty lifting his right leg when getting out of a car requiring him to use his arms to lift the right thigh up.
-Appreciate neurology input. Differential diagnosis includes pre-existing myopathy and/or superimposed right lumbosacral plexopathy due to right psoas hematoma.
-Previous CT scan from July 01 demonstrates intramuscular hematomas in the right psoas and iliacus muscles.
-Repeat CT July 10 without contrast demonstrates stability of hematomas. No change.
patient can be limited weightbearing to left heel with transfers
Multivessel CAD
-noted on cardiac catheterization 07/10. CT surgery recommending against bypass surgery.
-Goal-directed medical therapy recommended.
-Should he develop ACS or anginal symptoms then PCI with high risk stenting recommended.
reported hx LV thrombus
-Dx at [facility] 2 weeks prior to arrival for this hospitalization, suspect due to severely depressed LVEF
-Started on Coumadin anticoagulation 06/07/2024 for LV apical thrombus which was later held due to retroperitoneal bleed
- Now restarted on anticoagulation with Eliquis
Left retroperitoneal hematoma: Repeat CT abdomen/pelvis angiogram July 18 shows no findings of active contrast extravasation or bleeding.
-Large but stable on repeat imaging 07/01
-Hemoglobin stable, repeat H&H in a week or sooner if evidence of bleeding
Acute blood loss anemia
-Secondary to blood loss from procedures and retroperitoneal hematoma
-Status post transfusion 10 units so far this admission
Hemoglobin has recovered and on last check was 12.0. Last transfusion was 07/01.
Acute on chronic HFrEF
EF 15-20%
-Cardio eval appreciated
-Decreased GDMT to less aggressive regimen due to hypotension 07/21
- Lasix, spironolactone, Entresto on hold for GHAZAL
- Decrease Coreg from 12.5 mg twice daily to 6.25 mg twice daily
Repeat echocardiogram July 22 with small circumferential pericardial effusion, similar to prior echo from June 24. LVEF has improved to 30 to 35%, LV is globally hypokinetic.
Acute urinary retention:
-Orosco discontinued
-Voiding spontaneously
-Will monitor urine output and bladder scans
Choledocholithiasis
-ERCP 06/21 with stone identified and removed and biliary sphincterotomy performed
-GI eval appreciated
Transaminitis
� Secondary to choledocholithiasis, ERCP performed 06/21
� Resolving after ERCP
GHAZAL -suspect related to contrast-induced nephropathy due to CT angiogram done July 18. Hold furosemide, spironolactone, Entresto. Creatinine 1.8 on July 21, 1.5 yesterday, labs pending for today.
DM 2/diabetic neuropathy -glucose 136 this morning.
-Uncontrolled, hemoglobin A1c 10.8% this admission
-DM CLOCK MECHANIC eval appreciated
-Currently Lantus 14 units twice daily and short acting insulin with meals (12 units with breakfast, 8 units with lunch and dinner), additional sliding scale insulin as needed
-Farxiga resumed
-Gabapentin 600 mg daily on hold d/t Encephalopathy as above
Constipation
Resolved
cont Miralax and Sennosides, consider Lactulose if no improvement
Mild Hyponatremia -sodium 130 on July 21, repeat labs pending.
Hyperlipidemia
-Continue statin
Nicotine dependence
DVT prophylaxis SCDs
Full code
Dispo -can discharge to [facility] if renal function improved on labs today. Still waiting for insurance authorization for [facility]. Discussed with case management.
Anticipated Discharge: Within 24 hours
Subjective/Interval History
-
Date of Service: July 23, 2024
Patient seen and examined. No complaints.
Objective Data
-
Labs:
Laboratory Results
07/23/24
05:52
WBC 11.2 H
Hgb 10.4 L
Hct 30.8 L
Plt Count 190
Sodium Pending
Potassium Pending
Chloride Pending
Carbon Dioxide Pending
BUN Pending
Creatinine Pending
Glucose Pending
Calcium Pending
Vital Signs:
Vital Signs
Temp Pulse Resp BP Pulse Ox
98.1 F 76 16 140/76 96
07/23/24 07:55 07/23/24 07:55 07/23/24 07:55 07/23/24 07:55 07/23/24 07:55
I&O
07/22/24 07/23/24 07/24/24
06:59 06:59 06:59
Intake Total 300 / 300 1020 / 1020
Output Total 715 / 715 1150 / 1150
Balance -415 / -415 -130 / -130
Review of Systems
-
History Source: Patient
All other systems: Reviewed and negative
[2024-07-23 09:44] LABS: Blood Urea Nitrogen 49 mg/dl (9-20); Calcium 8.2 mg/dl (8.4-10.2); Carbon Dioxide 24 mmol/L (22-30); Chloride 100 mmol/L (98-107); Estimated Creatinine Clearance 63 ml/min; Glucose 116 mg/dl (70-99); Potassium 3.8 mmol/L (3.5-5.1); Sodium 135 mmol/L (135-145); eGFR > 60.00
[2024-07-23] MEDS: NOVOLOG FLEXPEN-LOW RESISTANCE SC ×2 (09:51→12:49)
[2024-07-23] MEDS: NOVOLOG FLEXPEN SC ×3 (09:51→16:42)
[2024-07-23] MEDS: MIRALAX 17 GRAMS PO (10:03)
[2024-07-23] MEDS: PROTONIX 40 MG PO (10:04)
[2024-07-23] MEDS: SENOKOT 17.2 MG PO ×2 (10:04→22:46)
[2024-07-23] MEDS: COREG 6.25 MG PO ×2 (10:04→22:45)
[2024-07-23] MEDS: FARXIGA 10 MG PO (10:04)
[2024-07-23] MEDS: PACERONE 200 MG PO (10:05)
[2024-07-23] MEDS: DESENEX/MITRAZOL/ZEASORB 1 APPLIC TOPICAL (10:05)
[2024-07-23] MEDS: LOW STRENGTH ASPIRIN 81 MG PO (10:05)
[2024-07-23] MEDS: ELIQUIS 5 MG PO ×2 (10:05→22:46)
[2024-07-23] MEDS: HYDROPHOR TOPICAL (10:06)
--- NOTE | 2024-07-23 10:21 | CM ---
Addendum entered by Nirali Allen 07/23/24 15:39:
Discharge cx - [facility] unable to accept due to pt needs
Spoke with pts at bedside
Discussed alternate [facility] rehabs - requesting referral to [facility], [facility] and [facility]
Referral sent in [facility]
Given SNF option list from Medicare.gov to review
Plan - anticipate acute rehab if bed obtained
Addendum entered by Nirali Allen 07/23/24 11:39:
Rcd call from [facility]
Auth approved for 7 days - 07/23-07/29; NRD 07/29 - Fax clinicals to [phone]
[employer] Operator Apprent[employer] Tea - - [phone], ext [phone]
Auth # [id number]
Updated Estelle at [facility] with auth info
Dr Luke aware
Updated pts Sara
Reviewed IMM with pts
Plan - transfer to [facility]
R - [phone]
F - [phone]
Original Note:
Pending reference # [id number] - remains pending
--- NOTE | 2024-07-23 10:32 | PTCARENOTE ---
Called Pharmacy and relayed to pharmacist Erin that patients Lantus syringe does not scan/identify itself. I sent Lantus back down for pharmacy to re-tag so RN can safely administer
--- NOTE | 2024-07-23 11:27 | W.DS.TRANS ---
DC Summary - [employer]
-
Discharge Instructions:
Sleep Apnea Risk Intermediate
Discharge Diagnosis/Procedures Cardiac arrest, cardioembolic stroke, left
ventricular thrombus, cardiac catheterization (4
/2)
Diet Diabetic, Carb Controlled,Low Cholesterol
Activity With assistance,As tolerated
Additional Activity Limited weightbearing to left heel for transfers
, no weightbearing to left toes
Driving Restrictions No driving
Bathing Restrictions None
Specialty Instructions Weigh Daily
Instructions: *DCA Heart Failure Instructions
Stand-Alone Forms: DC Instructions- Cath/EP Lab
Changes to Home Medications: No
Discharge Medications:
DC Medications w/original date entered in [employer]
albuterol sulfate 90 mcg/actuation aerosol inhaler 2 puff inhalation R Q6HPRN PRN sob 06/18/24
Insulin Glargine Lantus [Lantus] 14 units As Directed mls/hr SC BID@0800,2200 07/23/24
amiodarone 200 mg tablet 200 mg PO DAILY #0 tabs 07/23/24
apixaban 5 mg tablet (Eliquis) 5 mg PO BID #0 tabs 07/23/24
aspirin 81 mg chewable tablet 81 mg PO DAILY #0 tabs 07/23/24
atorvastatin 40 mg tablet 40 mg PO QPM #0 tabs 07/23/24
carvedilol 6.25 mg tablet 6.25 mg PO BID #0 tabs 07/23/24
cefazolin 10 gram solution for injection 2 g IV Q8H #0 ea 07/23/24
dapagliflozin propanediol 10 mg tablet 10 mg PO DAILY #0 tabs 07/23/24
furosemide 40 mg tablet 40 mg PO DAILY #0 tabs 07/23/24
insulin aspart U-100 100 unit/mL (3 mL) subcutaneous pen 8 unit (0.08 mL) SC DAILY@1130 #0 mL 07/23/24
insulin aspart U-100 100 unit/mL (3 mL) subcutaneous pen 8 unit (0.08 mL) SC DAILY@1630 #0 mL 07/23/24
insulin aspart U-100 100 unit/mL (3 mL) subcutaneous pen 12 unit (0.12 mL) SC DAILY@0730 #0 mL 07/23/24
pantoprazole 40 mg tablet,delayed release 40 mg PO DAILY #0 tabs 07/23/24
polyethylene glycol 3350 17 gram oral powder packet 17 g PO DAILY #0 ea 07/23/24
polyvinyl alcohol-povidone (PF) 1.4 %-0.6 % eye drops in a dropperette (Refresh Classic (PF)) 1 drops ophthalmic (eye) QIDPRN PRN DRY EYES #0 ea 07/23/24
sacubitril 24 mg-valsartan 26 mg tablet (Entresto) 1 tab PO BID #0 tabs 07/23/24
sennosides 8.6 mg tablet (Crystal-jooj) 17.2 mg (2 x 8.6 mg) PO BID #0 tabs 07/23/24
spironolactone 25 mg tablet 25 mg PO DAILY #0 tabs 07/23/24
Home Medication Changes
Pending Results: No
[2024-07-23 12:44] LABS: Glucose - Point of Care 142 mg/dl (70-99)
[2024-07-23] MEDS: LANTUS SC (13:09)
--- NOTE | 2024-07-23 15:16 | WOUNDNOTE ---
[facility] RN NOTE: Track pad changed, leaking around edges. Additional drape applied to edges and track pad, now at 125mmhg, no air leaks. Nurse reports patient not being discharged today.
[2024-07-23 15:55] VITALS: BP 137/66
[2024-07-23 16:22] LABS: Glucose - Point of Care 196 mg/dl (70-99)
[2024-07-23] MEDS: NOVOLOG FLEXPEN-LOW RESISTANCE 1 UNITS SC (16:41)
[2024-07-23] MEDS: LIPITOR 40 MG PO (16:55)
[2024-07-23 21:12] LABS: Glucose - Point of Care 211 mg/dl (70-99)
[2024-07-23] MEDS: LANTUS 0.14 UNITS SC (22:51)
[2024-07-23] MEDS: HYDROPHOR 1 APPLIC TOPICAL (23:00)
[2024-07-23 23:25] VITALS: BP 150/85
[2024-07-24 06:00] VITALS: BMI 21.6
[2024-07-24] MEDS: ANCEF 10 IV (06:28)
--- NOTE | 2024-07-24 07:06 | PN.DE.MGMTRT ---
Insulin Management
- -
07/24/2024: Diabetes Management Follow up
63 year old male who presented to ER on 06/18/24 with report of AMS changes, of staring, garbled speech, confusion, and balance difficulty lasting an unclear amount of time. Of note, pt was recently admitted at [facility] for LV thrombus
and HFrEF (on Coumadin).
PMH: NICM, mild MR, HTN, Hypercholesterolemia Renal insufficiency, RLE Cellulitis, nicotine use and IDDM. Prior to admission was taking Levemir 20 units BID, Humalog 5 units AC and Farxiga 10mg daily prior to admission. A1C 10.8%.
Pt was also noted for a chronic nonhealing left foot wound as well as a more acute gangrenous left hallux and associated foot infection. He underwent a partial first ray resection on 06/23. OR 06/24/24 for RLE percutaneous revascularization. Upon
anesthesia induction patient PEA/Vfib arrested and underwent ACLS until ROSC was achieved and procedure was aborted. 07/10 cardiac cath - significant multivessel CAD, R & L elevated filling pressures. Patient and family do not want to pursue
revascularization at this time due to significant cardiovascular risks
07/24 Patient appetite poor, Glucose range 07/23 was 136 to 196, did not receive AM lantus (due to scanning issue) or AC novolog due to poor appetite. HS glucose 211, patient did receive HS lantus 14 units. Will continue Lantus 14 units BID with
ac novolog 12 units with breakfast, Novolog 8 units for lunch and dinner with low corrective insulin. Will cont Farxiga 10mg daily.
Patient for possible transfer to Acute Rehab or SNF.
Will cont to follow.
Diabetes History
- -
Type of Diabetes: 2 requiring insulin
Pre-Admission Diabetes Regimen
07/23/24
05:52
Creatinine 1.3
Lab Results
Hemoglobin A1c 10.8 % (4.0-5.6) H 06/19/24 05:43
Insulin Pump Settings
IP Diabetes Regimen
07/23/24 07/23/24 07/23/24
05:52 08:01 12:43
Glucose 116 H
POC Glucose 136 H 142 H
07/23/24 07/23/24
16:21 21:09
Glucose
POC Glucose 196 H 211 H
Meal type: Dinner
Meal type: Breakfast
Meal type: Lunch
Meal type: Breakfast
Amount consumed: 15%
Amount consumed: 0
Amount consumed: 40%
Amount consumed: 50%
Patient Education
[2024-07-24 08:00] VITALS: BP 115/59
--- NOTE | 2024-07-24 08:38 | WOUNDNOTE ---
R CALF (POSTERIOR LATERAL)
--- NOTE | 2024-07-24 08:40 | WOUNDNOTE ---
WOC RN Note: Patient's L foot vac dressing changed. Plan is SNF rehab when bed available. Sacral ulcer slightly improved, less yellow, less red around wound. Patient stated he is eating. Patient on a [facility] air bed. Skin on L heel intact.
Foam maintained on R heel skin fissure. Patient trying to stay on his side for off load sacrum. Sacral and R calf dressings changed. R knee abrasion healed. Next vac change due Monday. On day of discharge, nursing to remove vac dressing and apply
saline gauze for transfer and SNF/rehab to apply their own vac.
[2024-07-24 08:50] LABS: Glucose - Point of Care 101 mg/dl (70-99)
[2024-07-24] MEDS: NOVOLOG FLEXPEN-LOW RESISTANCE SC (08:51)
--- NOTE | 2024-07-24 09:10 | WOUNDNOTE ---
Zion texted L foot wound picture to update Dr. Marquise Main. Wound has been improving with more granulation tissue.
--- NOTE | 2024-07-24 09:11 | WOUNDNOTE ---
Small amount of drainage noted to wound vac canister, changed and new canister in place.
[2024-07-24] MEDS: SENOKOT 17.2 MG PO ×2 (09:57→20:19)
[2024-07-24] MEDS: ELIQUIS 5 MG PO ×2 (09:57→20:18)
[2024-07-24] MEDS: FARXIGA 10 MG PO (09:57)
[2024-07-24] MEDS: PACERONE 200 MG PO (09:57)
[2024-07-24] MEDS: COREG 6.25 MG PO ×2 (09:57→20:19)
[2024-07-24] MEDS: PROTONIX 40 MG PO (09:57)
[2024-07-24] MEDS: LOW STRENGTH ASPIRIN 81 MG PO (09:58)
[2024-07-24] MEDS: NOVOLOG FLEXPEN 12 UNITS SC (09:58)
[2024-07-24] MEDS: MIRALAX 17 GRAMS PO (09:59)
[2024-07-24] MEDS: HYDROPHOR 1 APPLIC TOPICAL ×2 (09:59→20:21)
[2024-07-24] MEDS: DESENEX/MITRAZOL/ZEASORB 1 APPLIC TOPICAL (09:59)
[2024-07-24] MEDS: LANTUS 0.14 UNITS SC ×2 (10:06→21:38)
--- NOTE | 2024-07-24 10:28 | CM ---
Addendum entered by Nirali Allen 07/24/24 16:24:
Spoke with Yenifer at [facility] - updated clinical information, new start date and facility
Requested clinical information to be faxed to [phone]
Auth pending
Addendum entered by Nirali Allen 07/24/24 15:32:
Spoke with Mariana at [facility] - reports family would like to accept bed
[facility] [phone] facility; [phone] Dr Sammy Bond
Called [facility] to request updated auth - Per scrubber operator 'Experiencing technical difficulties' requesting to 'call back later'
CM will f/u with insurance
Plan - anticipate [facility] rehab when auth obtained
Addendum entered by Nirali Allen 07/24/24 14:08:
Spoke with Mariana at [facility] - can accept pt
Discussed with pt and his at bedside
Family interested in [facility]. Spoke with Mariana at [facility] - will reach out to family
Awaiting family decision
Will need new auth
Plan - anticipate acute vs snf when bed obtained
Original Note:
Chart reviewed
[facility] - unable to accept - due to bed availability
[facility] - reviewing chart
[facility] - left message on VM at admissions requesting review of referral
Plan - acute rehab vs snf when bed obtained
--- NOTE | 2024-07-24 11:22 | W.PN.HOSP.TC ---
Today's Communication/Plan
-
BMP
Discharge planning
Assessment / Plan
Assessment / Plan
Gen-awake and alert, no acute distress
HEENT-NC, AT, anicteric, clear oral mm
Neck-supple
CV-reg, no M, +S1/S2
Lungs-clear B/L
Abd-soft, NT, ND
Ext-no edema
Musculoskeletal-no cyanosis, clubbing
Skin-warm and dry, left lower extremity wound VAC in place
Neuro- right proximal hip weakness, right hip flexor weakness
Psych-calm, cooperative
PEA/Vfib arrest -following Anesthesia Induction 06/24/2024
Acute Anoxic Encephalopathy
-Underwent 3 rounds of ACLS and 4 defibrillations as per Cardio before ROSC was achieved
-ECHO post-code appreciated EF 10-15% no significant change from prior ECHO 06/20/24
Moderate pericardial effusion noted on CT abdomen/pelvis, 07/18. Check echocardiogram today. Asymptomatic. Cardiology to follow-up. Discussed with Dr. Hill.
-weaned off pressor support
-TTM completed, mental status significantly improved
-Extubated 06/27
-Brain MRI 06/29/24 noted no acute abn though limited study d/t motion defects
-Cardiology initially recommended LifeVest, however patient not be able to manage this due to his anoxic brain injury, no current plan for LifeVest, will reevaluate possibility of ICD after completing antibiotic course
-Low-dose aspirin resumed 07/08
patient can be limited weightbearing to left heel with transfers
MSSA bacteremia
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
-Blood cultures from 06/20 positive for MSSA, repeat cultures from 06/22 negative
-Suspect secondary to left hallux wet gangrene, which itself is suspected due to embolic effect, status post amputation
-Antibiotics now narrowed to cefazolin 2 g IV every 8 hours, antibiotics to be completed 08/02, midline line and PICC pulled out multiple times, will continue antibiotics via peripheral IV with possible transition to p.o. if needed
-Appreciate guidance from ID
Leukocytosis noted, now trending down. Afebrile.
Nausea and vomiting:
- Resolved
-CT abdomen pelvis with no acute findings
-EKG unremarkable, troponins continue to trend down
- Will use Tigan considering prolonged QTc
- Now tolerating p.o. diet
Left hallux gangrene/acute osteomyelitis
-Suspect secondary to embolism as also caused stroke
-wound cx pos MSSA
-Status post partial amputation in the OR with podiatry 06/23
-Planned for revascularization 06/24 which was aborted d/t PE/Vfib arrest as above
-Continue local wound care, antibiotics with cefazolin
-Patient and family do not want to pursue revascularization at this time due to significant cardiovascular risks, will continue antibiotics and local wound care
- Medically stable for discharge to [facility] for acute rehab on Saturday 07/22, patient can be limited weightbearing to left heel with transfers
Acute stroke - Suspect secondary to cardiac emboli
� Acute/subacute infarct in the right periventricular white matter/centrum semiovale region
� Currently holding anticoagulation due to large left retroperitoneal hematoma
� Neurology consult appreciated
� Carotids unremarkable
- Medically stable for discharge to [facility] for acute rehab on Saturday 07/22, patient can be limited weightbearing to left heel with transfers
-Restarted aspirin 81 mg daily
Right lower extremity weakness
-likely acute on chronic. Of note patient was discharged from [facility] June 12 using crutches. Has had difficulty lifting his right leg when getting out of a car requiring him to use his arms to lift the right thigh up.
-Appreciate neurology input. Differential diagnosis includes pre-existing myopathy and/or superimposed right lumbosacral plexopathy due to right psoas hematoma.
-Previous CT scan from July 01 demonstrates intramuscular hematomas in the right psoas and iliacus muscles.
-Repeat CT July 10 without contrast demonstrates stability of hematomas. No change.
patient can be limited weightbearing to left heel with transfers
Multivessel CAD
-noted on cardiac catheterization 07/10. CT surgery recommending against bypass surgery.
-Goal-directed medical therapy recommended.
-Should he develop ACS or anginal symptoms then PCI with high risk stenting recommended.
reported hx LV thrombus
-Dx at [facility] 2 weeks prior to arrival for this hospitalization, suspect due to severely depressed LVEF
-Started on Coumadin anticoagulation 06/07/2024 for LV apical thrombus which was later held due to retroperitoneal bleed
- Now restarted on anticoagulation with Eliquis
Left retroperitoneal hematoma: Repeat CT abdomen/pelvis angiogram July 18 shows no findings of active contrast extravasation or bleeding.
-Large but stable on repeat imaging 07/01
-Hemoglobin stable, repeat H&H in a week or sooner if evidence of bleeding
Acute blood loss anemia
-Secondary to blood loss from procedures and retroperitoneal hematoma
-Status post transfusion 10 units so far this admission
Hemoglobin has recovered and on last check was 12.0. Last transfusion was 07/01.
Acute on chronic HFrEF
EF 15-20%
-Cardio eval appreciated
-Decreased GDMT to less aggressive regimen due to hypotension 07/21
- Lasix, spironolactone, Entresto on hold for GHAZAL, resume when able
- Decrease Coreg from 12.5 mg twice daily to 6.25 mg twice daily
Repeat echocardiogram July 22 with small circumferential pericardial effusion, similar to prior echo from June 24. LVEF has improved to 30 to 35%, LV is globally hypokinetic.
Acute urinary retention:
-Orosco discontinued
-Voiding spontaneously
-Will monitor urine output and bladder scans
Choledocholithiasis
-ERCP 06/21 with stone identified and removed and biliary sphincterotomy performed
-GI eval appreciated
Transaminitis
� Secondary to choledocholithiasis, ERCP performed 06/21
� Resolving after ERCP
GHAZAL -suspect related to contrast-induced nephropathy due to CT angiogram done July 18. Hold furosemide, spironolactone, Entresto. GHAZAL improved, creatinine 1.3 yesterday. Check BMP today.
DM 2/diabetic neuropathy -glucose 101 this morning.
-Uncontrolled, hemoglobin A1c 10.8% this admission
-DM BIOCHEMICAL ENGINEER eval appreciated
-Currently Lantus 14 units twice daily and short acting insulin with meals (12 units with breakfast, 8 units with lunch and dinner), additional sliding scale insulin as needed
-Farxiga resumed
-Gabapentin 600 mg daily on hold d/t Encephalopathy as above
Mild Hyponatremia -improved.
Hyperlipidemia
-Continue statin
Nicotine dependence
DVT prophylaxis SCDs
Full code
Dispo -medically stable for discharge to rehab. Unclear if he is going to acute versus subacute rehab. [facility]
Anticipated Discharge: Within 24 hours
Subjective/Interval History
-
Date of Service: July 24, 2024
Patient seen and examined. No complaints.
Objective Data
-
Vital Signs:
Vital Signs
Temp Pulse Resp BP Pulse Ox
97.9 F 66 16 115/59 97
07/24/24 08:00 07/24/24 09:57 07/24/24 08:00 07/24/24 09:57 07/24/24 11:15
I&O
07/23/24 07/24/24 07/25/24
06:59 06:59 06:59
Intake Total 1020 / 1020 890 / 890
Output Total 1150 / 1150 1994
Balance -130 / -130 -1105 / -1105
Review of Systems
-
History Source: Patient
All other systems: Reviewed and negative
--- NOTE | 2024-07-24 11:48 | W.PN.ID1 ---
Date of Service
Date of Service: July 24, 2024
Today's Communication
- unable to find placement for patient; he has self-removed 3 lines at this time risks of replacement of the IV line are higher than the benefits
- will still complete 6 weeks of antibiotics - at this time will transition to keflex to complete the course
- Continue course of antibiotics (06/22 through 08/02)
Assessment / Plan
MSSA Bacteremia - cleared
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
PEA/v fib arrest 06/24
Large left retroperitoneal hematoma with blood-loss anemia
CVA
Encephalopathy - resolving
Dm2; uncontrolled
Choledocholithiasis s/p ERCP with 06/21 - resolved
- 06/21 and 06/22 blood cultures finalized negative
- Toe swab cx MSSA. Toe amp path: viable margin with focal osteomyelitis - has completed 4 weeks of IV therapy and will have two further weeks of consolidation
- unable to find placement for patient; he has self-removed 3 lines at this time risks of replacement of the IV line are higher than the benefits
- will still complete 6 weeks of antibiotics - at this time will transition to keflex to complete the course
- Continue course of antibiotics (06/22 through 08/02)
����������������������������������������������������������
Chief Complaint
-: Other (mssa bacteremia, possible endocarditis)
Subjective / Review of Systems
afebrile
bp stable
Vital Signs / Physical Exam
Vital Signs
Vital Signs
Temp Pulse Resp BP Pulse Ox
97.9 F 66 16 115/59 97
07/24/24 08:00 07/24/24 09:57 07/24/24 08:00 07/24/24 09:57 07/24/24 11:15
Physical Exam
Constitutional: No Acute Distress and Chronically Ill
Cardiovascular: Regular Rate and S1/S2; Negative Murmur or Rub
Pulmonary: Clear and Symmetric; Negative Wheezes or Rales
Gastrointestinal: Soft, Non Tender, Non Distended and Normal Bowel Sounds
Skin: Warm and Dry; Negative Rash or Jaundice
Objective Data
Lab Data
Lab Results
07/23/24 05:52
ESR 57 mm/hour (0-20) H 07/16/24 07:24
PT 18.8 Sec (11.4-14.6) H 06/27/24 03:27
INR 1.52 06/27/24 03:27
APTT 99.6 Sec (23.4-35.0) H 07/13/24 06:28
Estimated Creat Clear 63 ml/min 07/23/24 05:52
Lactic Acid 1.0 mmol/L (0.7-2.0) 06/26/24 08:48
Total Bilirubin 2.2 mg/dl (0.2-1.3) H 07/18/24 11:57
AST 53 U/L (17-59) 07/18/24 11:57
ALT 10 U/L (0-50) 07/18/24 11:57
Alkaline Phosphatase 149 U/L (38-126) H 07/18/24 11:57
C-Reactive Protein 19.70 mg/L (0.0-10.00) H 07/16/24 07:24
Most recent labs reviewed.
Wound/abscess/other Cult Final 07/12/20-903
Few S aureus-Methicillin Sensitive
Organism 1 S aureus-Methicillin Sensitive
1. S aureus-Methicillin Sensitive
M.I.C. RX
--------- ---
Amoxicillin/Potas. Clavulanate <=4/2 S
Ampicillin R
Clindamycin <=0.5 S
Gentamicin <=4 S
Erythromycin <=0.5 S
Levofloxacin <=1 S
Oxacillin 0.5 S
Tetracycline 8 I
Trimethoprim/Sulfamethoxazole <=0.5/9.5 S
Vancomycin 1 S
Micro Results:
06/22/24 13:23 Blood Culture - Final
Blood/Venous No Growth - Final Report
06/21/24 09:33 Blood Culture - Final
Blood/Venous No Growth - Final Report
06/22/24 14:36 Wound Culture - Final
Abscess S aureus-Methicillin Sensitive
Gram Stain - Final
06/20/24 00:42 Blood Culture - Final
Blood/Venous S aureus-Methicillin Sensitive
Gram Stain - Final
06/20/24 01:59 Blood Culture - Final
Blood/Venous S aureus-Methicillin Sensitive
Gram Stain - Final
06/18/24 16:51 Urine Culture - Final
Urine NO GROWTH
06/18/24 16:11 Influenza Types A & B (HUBER) - Final
Nasal Swab Negative for Influenza A & B, NAAT
Negative results must be combined with clinical observations
and patient history.
Nucleic Acid Amplification test (NAAT)performed on the
[employer] platform.
[2024-07-24 11:52] LABS: Glucose - Point of Care 159 mg/dl (70-99)
[2024-07-24] MEDS: NOVOLOG FLEXPEN SC (11:53)
[2024-07-24] MEDS: NOVOLOG FLEXPEN-LOW RESISTANCE 1 UNITS SC ×2 (11:54→17:35)
[2024-07-24 12:35] LABS: Blood Urea Nitrogen 36 mg/dl (9-20); Calcium 8.6 mg/dl (8.4-10.2); Carbon Dioxide 30 mmol/L (22-30); Chloride 99 mmol/L (98-107); Estimated Creatinine Clearance 70 ml/min; Glucose 148 mg/dl (70-99); Potassium 3.9 mmol/L (3.5-5.1); Sodium 138 mmol/L (135-145); eGFR > 60.00
[2024-07-24] MEDS: KEFLEX 500 MG PO ×3 (14:25→21:37)
[2024-07-24 16:00] VITALS: BP 147/79
[2024-07-24 16:42] VITALS: BP 126/65; PULSE 66
[2024-07-24 16:48] VITALS: BP 126/65
[2024-07-24 17:05] LABS: Glucose - Point of Care 151 mg/dl (70-99)
[2024-07-24] MEDS: NOVOLOG FLEXPEN 8 UNITS SC (17:36)
[2024-07-24] MEDS: LIPITOR 40 MG PO (17:37)
[2024-07-24 21:15] LABS: Glucose - Point of Care 80 mg/dl (70-99)
[2024-07-24 23:16] VITALS: BP 160/88
[2024-07-25 07:20] VITALS: BP 116/65
[2024-07-25 07:28] LABS: Glucose - Point of Care 54 mg/dl (70-99)
--- NOTE | 2024-07-25 07:31 | PN.DE.MGMTRT ---
Insulin Management
- -
07/25/2024: Diabetes Management Follow up
63 year old male who presented to ER on 06/18/24 with report of AMS changes, of staring, garbled speech, confusion, and balance difficulty lasting an unclear amount of time. Of note, pt was recently admitted at [facility] for LV thrombus
and HFrEF (on Coumadin).
PMH: NICM, mild MR, HTN, Hypercholesterolemia Renal insufficiency, RLE Cellulitis, nicotine use and IDDM. Prior to admission was taking Levemir 20 units BID, Humalog 5 units AC and Farxiga 10mg daily prior to admission. A1C 10.8%.
Pt was also noted for a chronic nonhealing left foot wound as well as a more acute gangrenous left hallux and associated foot infection. He underwent a partial first ray resection on 06/23. OR 06/24/24 for RLE percutaneous revascularization. Upon
anesthesia induction patient PEA/Vfib arrested and underwent ACLS until ROSC was achieved and procedure was aborted. 07/10 cardiac cath - significant multivessel CAD, R & L elevated filling pressures. Patient and family do not want to pursue
revascularization at this time due to significant cardiovascular risks
07/25 Nursing reports patient appetite poor, Glucose range 07/24 was 101 to 159, HS glucose 80, patient did receive BID lantus 14 units. Fasting glucose this AM 54. Will reduce AM lantus to 12 units and HS Lantus 10 units with ac novolog 8 units
with breakfast, lunch and dinner with low corrective insulin. Will cont Farxiga 10mg daily.
Patient for possible transfer to Acute Rehab or SNF.
Will cont to follow.
Diabetes History
- -
Type of Diabetes: 2 requiring insulin
Pre-Admission Diabetes Regimen
07/24/24
11:45
Creatinine 1.2
Lab Results
Hemoglobin A1c 10.8 % (4.0-5.6) H 06/19/24 05:43
Insulin Pump Settings
IP Diabetes Regimen
07/24/24 07/24/2425
08:49 11:45 11:51
Glucose 148 H
POC Glucose 101 H 159 H
07/24/24 07/24/24 07/25/24
17:04 21:13 07:26
Glucose
POC Glucose 151 H 80 54 L*
Meal type: Breakfast
Amount consumed: 50%
Patient Education
[2024-07-25] MEDS: NOVOLOG FLEXPEN-LOW RESISTANCE SC (07:43)
[2024-07-25] MEDS: ELIQUIS 5 MG PO (07:55)
[2024-07-25] MEDS: FARXIGA 10 MG PO (07:55)
[2024-07-25] MEDS: MIRALAX 17 GRAMS PO (07:55)
[2024-07-25] MEDS: COREG 6.25 MG PO (07:56)
[2024-07-25] MEDS: KEFLEX 500 MG PO ×2 (07:56→12:02)
[2024-07-25] MEDS: PACERONE 200 MG PO (07:56)
[2024-07-25] MEDS: SENOKOT 17.2 MG PO (07:56)
[2024-07-25] MEDS: PROTONIX 40 MG PO (07:56)
[2024-07-25] MEDS: LANTUS 0.12 UNITS SC (07:57)
[2024-07-25] MEDS: ENTRESTO 24 MG/26 MG 1 TAB PO (08:01)
[2024-07-25] MEDS: LOW STRENGTH ASPIRIN 81 MG PO (08:03)
[2024-07-25] MEDS: ALDACTONE 25 MG PO (08:03)
[2024-07-25] MEDS: LASIX 40 MG PO (08:03)
[2024-07-25] MEDS: HYDROPHOR 1 APPLIC TOPICAL (08:05)
[2024-07-25] MEDS: DESENEX/MITRAZOL/ZEASORB 1 APPLIC TOPICAL (08:05)
[2024-07-25 08:09] LABS: Glucose - Point of Care 114 mg/dl (70-99)
[2024-07-25] MEDS: NOVOLOG FLEXPEN 4 UNITS SC (08:11)
[2024-07-25] MEDS: NOVOLOG FLEXPEN SC (08:17)
[2024-07-25 08:54] VITALS: BMI 22.1
--- NOTE | 2024-07-25 09:40 | W.PN.ID1 ---
Date of Service
Date of Service: July 25, 2024
Today's Communication
- c/w keflex to complete the course (06/22 through 08/02)
Assessment / Plan
MSSA Bacteremia - cleared
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
PEA/v fib arrest 06/24
Large left retroperitoneal hematoma with blood-loss anemia
CVA
Encephalopathy - resolving
Dm2; uncontrolled
Choledocholithiasis s/p ERCP with 06/21 - resolved
- pt has self-removed 3 lines at this time risks of replacement of the IV line are higher than the benefits
- c/w keflex to complete the course (06/22 through 08/02)
����������������������������������������������������������
Chief Complaint
-: Other (mssa bacteremia, possible endocarditis)
Subjective / Review of Systems
afebrile
bp stable
no complaints
Vital Signs / Physical Exam
Vital Signs
Vital Signs
Temp Pulse Resp BP Pulse Ox
98.7 F 70 16 116/65 97
07/25/24 07:20 07/25/24 08:03 07/25/24 07:20 07/25/24 08:03 07/25/24 07:20
Physical Exam
Constitutional: No Acute Distress
Cardiovascular: Regular Rate and S1/S2; Negative Murmur or Rub
Pulmonary: Clear and Symmetric; Negative Wheezes or Rales
Gastrointestinal: Soft, Non Tender, Non Distended and Normal Bowel Sounds
Skin: Warm and Dry; Negative Rash or Jaundice
Objective Data
Lab Data
Lab Results
07/23/24 05:52
07/24/24 11:45
ESR 57 mm/hour (0-20) H 07/16/24 07:24
PT 18.8 Sec (11.4-14.6) H 06/27/24 03:27
INR 1.52 06/27/24 03:27
APTT 99.6 Sec (23.4-35.0) H 07/13/24 06:28
Estimated Creat Clear 70 ml/min 07/24/24 11:45
Lactic Acid 1.0 mmol/L (0.7-2.0) 06/26/24 08:48
Total Bilirubin 2.2 mg/dl (0.2-1.3) H 07/18/24 11:57
AST 53 U/L (17-59) 07/18/24 11:57
ALT 10 U/L (0-50) 07/18/24 11:57
Alkaline Phosphatase 149 U/L (38-126) H 07/18/24 11:57
C-Reactive Protein 19.70 mg/L (0.0-10.00) H 07/16/24 07:24
Most recent labs reviewed.
Micro Results:
06/22/24 13:23 Blood Culture - Final
Blood/Venous No Growth - Final Report
06/21/24 09:33 Blood Culture - Final
Blood/Venous No Growth - Final Report
06/22/24 14:36 Wound Culture - Final
Abscess S aureus-Methicillin Sensitive
Gram Stain - Final
06/20/24 00:42 Blood Culture - Final
Blood/Venous S aureus-Methicillin Sensitive
Gram Stain - Final
06/20/24 01:59 Blood Culture - Final
Blood/Venous S aureus-Methicillin Sensitive
Gram Stain - Final
06/18/24 16:51 Urine Culture - Final
Urine NO GROWTH
06/18/24 16:11 Influenza Types A & B (HUBER) - Final
Nasal Swab Negative for Influenza A & B, NAAT
Negative results must be combined with clinical observations
and patient history.
Nucleic Acid Amplification test (NAAT)performed on the
[employer] platform.
--- NOTE | 2024-07-25 09:45 | CM ---
Addendum entered by Nirali Allen 07/25/24 10:38:
Rcd call from Fiordaliza at [employer]
Auth approved for 7 days
07/25-07/31; NRD 07/31 - Fax clinicals to [phone]
Manometer Technician Tea Hammond - [phone], ext [phone]
Auth # [id number]
Spoke with Mariana at [facility] - aware auth approved
Can accept today
Dr Luke updated
Plan - transfer to [facility]
R - [phone]
F - [phone]
Addendum entered by Nirali Allen 07/25/24 09:54:
Updates sent in [facility] for [facility]
Original Note:
Rcd call from Fiordaliza from [employer]
Rcd auth request. Given NPI's for [facility] and accepting MD
Will review and return call with determination
Plan - anticipate transfer to [facility] when auth obtained
[2024-07-25 10:04] LABS: Glucose - Point of Care 125 mg/dl (70-99)
--- NOTE | 2024-07-25 10:40 | W.PN.HOSP.TC ---
Today's Communication/Plan
-
Discharge
Assessment / Plan
Assessment / Plan
Gen-awake and alert, no acute distress
HEENT-NC, AT, anicteric, clear oral mm
Neck-supple
CV-reg, no M, +S1/S2
Lungs-clear B/L
Abd-soft, NT, ND
Ext-no edema
Musculoskeletal-no cyanosis, clubbing
Skin-warm and dry, left lower extremity wound VAC in place
Neuro- right proximal hip weakness, right hip flexor weakness
Psych-calm, cooperative
PEA/Vfib arrest -following Anesthesia Induction 06/24/2024
Acute Anoxic Encephalopathy
-Underwent 3 rounds of ACLS and 4 defibrillations as per Cardio before ROSC was achieved
-ECHO post-code appreciated EF 10-15% no significant change from prior ECHO 06/20/24
Moderate pericardial effusion noted on CT abdomen/pelvis, 07/18. Check echocardiogram today. Asymptomatic. Cardiology to follow-up. Discussed with Dr. Hill.
-weaned off pressor support
-TTM completed, mental status significantly improved
-Extubated 06/27
-Brain MRI 06/29/24 noted no acute abn though limited study d/t motion defects
-Cardiology initially recommended LifeVest, however patient not be able to manage this due to his anoxic brain injury, no current plan for LifeVest, will reevaluate possibility of ICD after completing antibiotic course
-Low-dose aspirin resumed 07/08
patient can be limited weightbearing to left heel with transfers
MSSA bacteremia
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
-Blood cultures from 06/20 positive for MSSA, repeat cultures from 06/22 negative
-Suspect secondary to left hallux wet gangrene, which itself is suspected due to embolic effect, status post amputation
-Antibiotics now narrowed to cefazolin 2 g IV every 8 hours, antibiotics to be completed 08/02, midline line and PICC pulled out multiple times, will continue antibiotics via peripheral IV with possible transition to p.o. if needed
-Appreciate guidance from ID
Leukocytosis noted, now trending down. Afebrile.
Nausea and vomiting:
- Resolved
-CT abdomen pelvis with no acute findings
-EKG unremarkable, troponins continue to trend down
- Will use Tigan considering prolonged QTc
- Now tolerating p.o. diet
Left hallux gangrene/acute osteomyelitis
-Suspect secondary to embolism as also caused stroke
-wound cx pos MSSA
-Status post partial amputation in the OR with podiatry 06/23
-Planned for revascularization 06/24 which was aborted d/t PE/Vfib arrest as above
-Continue local wound care, antibiotics with cefazolin
-Patient and family do not want to pursue revascularization at this time due to significant cardiovascular risks, will continue antibiotics and local wound care
- Medically stable for discharge to [facility] for acute rehab on Saturday 07/22, patient can be limited weightbearing to left heel with transfers
Acute stroke - Suspect secondary to cardiac emboli
� Acute/subacute infarct in the right periventricular white matter/centrum semiovale region
� Currently holding anticoagulation due to large left retroperitoneal hematoma
� Neurology consult appreciated
� Carotids unremarkable
- Medically stable for discharge to [facility] for acute rehab on Saturday 07/22, patient can be limited weightbearing to left heel with transfers
-Restarted aspirin 81 mg daily
Right lower extremity weakness
-likely acute on chronic. Of note patient was discharged from [facility] June 12 using crutches. Has had difficulty lifting his right leg when getting out of a car requiring him to use his arms to lift the right thigh up.
-Appreciate neurology input. Differential diagnosis includes pre-existing myopathy and/or superimposed right lumbosacral plexopathy due to right psoas hematoma.
-Previous CT scan from July 01 demonstrates intramuscular hematomas in the right psoas and iliacus muscles.
-Repeat CT July 10 without contrast demonstrates stability of hematomas. No change.
patient can be limited weightbearing to left heel with transfers
Multivessel CAD
-noted on cardiac catheterization 07/10. CT surgery recommending against bypass surgery.
-Goal-directed medical therapy recommended.
-Should he develop ACS or anginal symptoms then PCI with high risk stenting recommended.
reported hx LV thrombus
-Dx at [facility] 2 weeks prior to arrival for this hospitalization, suspect due to severely depressed LVEF
-Started on Coumadin anticoagulation 06/07/2024 for LV apical thrombus which was later held due to retroperitoneal bleed
- Now restarted on anticoagulation with Eliquis
Left retroperitoneal hematoma: Repeat CT abdomen/pelvis angiogram July 18 shows no findings of active contrast extravasation or bleeding.
-Large but stable on repeat imaging 07/01
-Hemoglobin stable, repeat H&H in a week or sooner if evidence of bleeding
Acute blood loss anemia
-Secondary to blood loss from procedures and retroperitoneal hematoma
-Status post transfusion 10 units so far this admission
Hemoglobin now stable.
Acute on chronic HFrEF
EF 15-20%
-Cardio eval appreciated
-Decreased GDMT to less aggressive regimen due to hypotension 07/21
- Lasix, spironolactone, Entresto on hold for GHAZAL, resume when able
- Decrease Coreg from 12.5 mg twice daily to 6.25 mg twice daily
Repeat echocardiogram July 22 with small circumferential pericardial effusion, similar to prior echo from June 24. LVEF has improved to 30 to 35%, LV is globally hypokinetic.
Acute urinary retention:
-Orosco discontinued
-Voiding spontaneously
-Will monitor urine output and bladder scans
Choledocholithiasis
-ERCP 06/21 with stone identified and removed and biliary sphincterotomy performed
-GI eval appreciated
Transaminitis
� Secondary to choledocholithiasis, ERCP performed 06/21
� Resolving after ERCP
GHAZAL -suspect related to contrast-induced nephropathy due to CT angiogram done July 18. Hold furosemide, spironolactone, Entresto. GHAZAL improved, creatinine 1.3 yesterday. Check BMP today.
DM 2/diabetic neuropathy -glucose 101 this morning.
-Uncontrolled, hemoglobin A1c 10.8% this admission
-DM ANIMAL BEHAVIORIST eval appreciated
-Currently Lantus 14 units twice daily and short acting insulin with meals (12 units with breakfast, 8 units with lunch and dinner), additional sliding scale insulin as needed
-Farxiga resumed
-Gabapentin 600 mg daily on hold d/t Encephalopathy as above
Mild Hyponatremia -improved.
Hyperlipidemia
-Continue statin
Nicotine dependence
DVT prophylaxis SCDs
Full code
Dispo -medically stable for discharge to rehab. Going to [facility] rehab as per case management.
Anticipated Discharge: Today
Subjective/Interval History
-
Date of Service: July 25, 2024
Patient seen and examined. No complaints.
Objective Data
-
Vital Signs:
Vital Signs
Temp Pulse Resp BP Pulse Ox
98.7 F 70 16 116/65 97
07/25/24 07:20 07/25/24 08:03 07/25/24 07:20 07/25/24 08:03 07/25/24 07:20
I&O
07/24/24 07/25/24 07/26/24
06:59 06:59 06:59
Intake Total 890 / 890 720 / 720
Output Total 1994 1425 / 1425
Balance -1105 / -1105 -705 / -705
Review of Systems
-
History Source: Patient
All other systems: Reviewed and negative
--- NOTE | 2024-07-25 10:46 | PTCARENOTE ---
Patient with blood sugar of 54 this AM, asymptomatic, juice provided and breakfast at bedside. Patient ate 50% of breakfast, repeat blood sugar after eating 114. This RN communicated with diabetic BASKETBALL ASSEMBLER, standing novolog insulin and lantus doses
adjusted per diabetic BASKETBALL ASSEMBLER. Patient with 8 units novolog scheduled for breakfast, diabetic BASKETBALL ASSEMBLER stated to administer half of scheduled dose since patient only ate half of breakfast. 4 units scheduled novolog administered - see MAR. Patient states no
complaints at this time.
[2024-07-25 11:52] LABS: Glucose - Point of Care 162 mg/dl (70-99)
[2024-07-25] MEDS: NOVOLOG FLEXPEN-LOW RESISTANCE 1 UNITS SC (12:03)
[2024-07-25] MEDS: NOVOLOG FLEXPEN 8 UNITS SC (12:04)
--- NOTE | 2024-07-25 12:42 | W.DS.TRANS ---
DC Summary - Cloth Trimmer Hand
-
Discharge Instructions:
Sleep Apnea Risk Intermediate
Discharge Diagnosis/Procedures Cardiac arrest, cardioembolic stroke, left
ventricular thrombus, cardiac catheterization (4
/2)
Diet Diabetic, Carb Controlled,Low Cholesterol
Activity With assistance,As tolerated
Additional Activity Limited weightbearing to left heel for transfers
, no weightbearing to left toes
Driving Restrictions No driving
Bathing Restrictions None
Specialty Instructions Weigh Daily
Instructions: *DCA Heart Failure Instructions
Stand-Alone Forms: DC Instructions- Cath/EP Lab
Changes to Home Medications: No
Discharge Medications:
DC Medications w/original date entered in [employer]
albuterol sulfate 90 mcg/actuation aerosol inhaler 2 puff inhalation R Q6HPRN PRN sob 06/18/24
Insulin Glargine Lantus [Lantus] 14 units As Directed mls/hr SC BID@0800,2200 07/23/24
amiodarone 200 mg tablet 200 mg PO DAILY #0 tabs 07/23/24
apixaban 5 mg tablet (Eliquis) 5 mg PO BID #0 tabs 07/23/24
aspirin 81 mg chewable tablet 81 mg PO DAILY #0 tabs 07/23/24
atorvastatin 40 mg tablet 40 mg PO QPM #0 tabs 07/23/24
carvedilol 6.25 mg tablet 6.25 mg PO BID #0 tabs 07/23/24
cefazolin 10 gram solution for injection 2 g IV Q8H #0 ea 07/23/24
furosemide 40 mg tablet 40 mg PO DAILY #0 tabs 07/23/24
insulin aspart U-100 100 unit/mL (3 mL) subcutaneous pen 8 unit (0.08 mL) SC DAILY@1130 #0 mL 07/23/24
insulin aspart U-100 100 unit/mL (3 mL) subcutaneous pen 8 unit (0.08 mL) SC DAILY@1630 #0 mL 07/23/24
insulin aspart U-100 100 unit/mL (3 mL) subcutaneous pen 12 unit (0.12 mL) SC DAILY@0730 #0 mL 07/23/24
pantoprazole 40 mg tablet,delayed release 40 mg PO DAILY #0 tabs 07/23/24
polyethylene glycol 3350 17 gram oral powder packet 17 g PO DAILY #0 ea 07/23/24
polyvinyl alcohol-povidone (PF) 1.4 %-0.6 % eye drops in a dropperette (Refresh Classic (PF)) 1 drops ophthalmic (eye) QIDPRN PRN DRY EYES #0 ea 07/23/24
sacubitril 24 mg-valsartan 26 mg tablet (Entresto) 1 tab PO BID #0 tabs 07/23/24
sennosides 8.6 mg tablet (Crystal-jojo) 17.2 mg (2 x 8.6 mg) PO BID #0 tabs 07/23/24
spironolactone 25 mg tablet 25 mg PO DAILY #0 tabs 07/23/24
empagliflozin 10 mg tablet 10 mg PO DAILY #30 tabs 07/25/24
Home Medication Changes
Pending Results: No
--- NOTE | 2024-07-25 13:01 | W.DS.TRANS ---
DC Summary - Diagnostic Technician
-
Discharge Instructions:
Sleep Apnea Risk Intermediate
Discharge Diagnosis/Procedures Cardiac arrest, cardioembolic stroke, left
ventricular thrombus, cardiac catheterization (4
/2)
Diet Diabetic, Carb Controlled,Low Cholesterol
Activity With assistance,As tolerated
Additional Activity Limited weightbearing to left heel for transfers
, no weightbearing to left toes
Driving Restrictions No driving
Bathing Restrictions None
Specialty Instructions Weigh Daily
Instructions: *DCA Heart Failure Instructions
Stand-Alone Forms: DC Instructions- Cath/EP Lab
Changes to Home Medications: No
Discharge Medications:
DC Medications w/original date entered in [employer]
albuterol sulfate 90 mcg/actuation aerosol inhaler 2 puff inhalation R Q6HPRN PRN sob 06/18/24
amiodarone 200 mg tablet 200 mg PO DAILY #0 tabs 07/23/24
apixaban 5 mg tablet (Eliquis) 5 mg PO BID #0 tabs 07/23/24
aspirin 81 mg chewable tablet 81 mg PO DAILY #0 tabs 07/23/24
atorvastatin 40 mg tablet 40 mg PO QPM #0 tabs 07/23/24
carvedilol 6.25 mg tablet 6.25 mg PO BID #0 tabs 07/23/24
furosemide 40 mg tablet 40 mg PO DAILY #0 tabs 07/23/24
pantoprazole 40 mg tablet,delayed release 40 mg PO DAILY #0 tabs 07/23/24
polyethylene glycol 3350 17 gram oral powder packet 17 g PO DAILY #0 ea 07/23/24
polyvinyl alcohol-povidone (PF) 1.4 %-0.6 % eye drops in a dropperette (Refresh Classic (PF)) 1 drops ophthalmic (eye) QIDPRN PRN DRY EYES #0 ea 07/23/24
sacubitril 24 mg-valsartan 26 mg tablet (Entresto) 1 tab PO BID #0 tabs 07/23/24
sennosides 8.6 mg tablet (Crystal-jojo) 17.2 mg (2 x 8.6 mg) PO BID #0 tabs 07/23/24
spironolactone 25 mg tablet 25 mg PO DAILY #0 tabs 07/23/24
Insulin Glargine Lantus [Lantus] 10 units As Directed mls/hr SC HS 07/25/24
Insulin Glargine Lantus [Lantus] 12 units As Directed mls/hr SC DAILY@0800 07/25/24
cephalexin 500 mg capsule 500 mg PO QID #0 caps 07/25/24
empagliflozin 10 mg tablet 10 mg PO DAILY #30 tabs 07/25/24
insulin aspart U-100 100 unit/mL (3 mL) subcutaneous pen (Novolog FlexPen U-100 Insulin aspart) 8 unit (0.08 mL) SC AC #15 mL 07/25/24
Home Medication Changes
Pending Results: No
--- NOTE | 2024-07-25 14:25 | WOUNDNOTE ---
WO RN note: Zion guillen RN Myriam Paez re: prior to patient case picker to remove patient's L foot wound vac and apply a saline gauze dressing for transfer. And place the rental vac pump and power cords in the soiled utility room. Confirmed with CM
Nirali Allen that the SNF rehab is aware patient needs a wound vac.
[2024-07-25 14:59] VITALS: BP 138/77
--- NOTE | 2024-07-25 15:49 | PTCARENOTE ---
Patient discharged to [facility], transported [facility]. This RN removed patient's IV, belongings gathered in room and handed to transport team. Patient's wound vac removed, WTD dressing placed over L foot wound per bank runner. Vitals
taken prior to discharge.
--- NOTE | 2024-07-26 10:03 | W.HF.CON ---
Heart Failure
- LV Function
Left ventricular function study result: LV Ejection fraction </= 35%
Ejection Fraction Percentage: 30-35
- ARNI
Patient already on ARNI: Yes
- ACEI/ARB
Patient already on ACEI/ARB: No
Heart Failure ACEI/ARB Not Indicated: Patient ordered/on ARNI
- Beta Jose
Patient already on Evidence Based Beta Jose: Yes
- Mineralocorticord Receptor Antagonist
Patient already on MRA: Yes
- SGLT-2 Inhibitor
Patient already on SGLT-2 Inhibitor: Yes
- NYHA CHF Classification
NYHA CHF Classification Level: Class III - Symptoms w/ min exertion, interferes w/ nml daily activity
- ACC/AHA Stage
ACC/AHA Stage: Stage C: Symptomatic Heart Failure
== END 2024-07-25 15:45 | DRG 239 ==
LOC: 2 NORTH 21:11
PROVIDERS: Clinical Nurse Specialist Family Health; Emergency Medicine; Internal Medicine; Internal Medicine Cardiovascular Disease; Internal Medicine Gastroenterology; Internal Medicine Infectious Disease; Internal Medicine Interventional Cardiology; Nurse Practitioner; Nurse Practitioner Family; Nurse Practitioner Gerontology; Nurse Practitioner Primary Care; Physician Assistant Medical; ADMITTING PHYSICIAN Hospitalist; ATTENDING PHYSICIAN Hospitalist; CONSULT PHYSICIAN Internal Medicine; CONSULT PHYSICIAN Physical Medicine & Rehabilitation; CONSULT PHYSICIAN Psychiatry & Neurology Clinical Neurophysiology; CONSULT PHYSICIAN Student in an Organized Health Care Education/Training Program; CONSULT PHYSICIAN Surgery Vascular Surgery; EMERGENCY PHYSICIAN Emergency Medicine; FAMILY PHYSICIAN Family Medicine; OTHER PHYSICIAN Internal Medicine Cardiovascular Disease; OTHER PHYSICIAN Internal Medicine Gastroenterology; OTHER PHYSICIAN Psychiatry & Neurology Neurology
PROC: 0FC98ZZ Extirpation of Matter from Common Bile Duct, Via Natural or Artificial Opening Endoscopic (ICD-10-PCS; 2024-06-21)
PROC: 0Y6N0Z9 Detachment at Left Foot, Partial 1st Ray, Open Approach (ICD-10-PCS; 2024-06-23)
PROC: 02HV33Z Insertion of Infusion Device into Superior Vena Cava, Percutaneous Approach (ICD-10-PCS; 2024-06-24)
PROC: 5A12012 Performance of Cardiac Output, Single, Manual (ICD-10-PCS; 2024-06-24)
PROC: 5A2204Z Restoration of Cardiac Rhythm, Single (ICD-10-PCS; 2024-06-24)
PROC: 03HY32Z Insertion of Monitoring Device into Upper Artery, Percutaneous Approach (ICD-10-PCS; 2024-06-24)
PROC: 0BH17EZ Insertion of Endotracheal Airway into Trachea, Via Natural or Artificial Opening (ICD-10-PCS; 2024-06-24)
PROC: 5A1945Z Respiratory Ventilation, 24-96 Consecutive Hours (ICD-10-PCS; 2024-06-24)
PROC: 30233N1 Transfusion of Nonautologous Red Blood Cells into Peripheral Vein, Percutaneous Approach (ICD-10-PCS; 2024-06-26)
PROC: 4A023N8 Measurement of Cardiac Sampling and Pressure, Bilateral, Percutaneous Approach (ICD-10-PCS; 2024-07-10)
PROC: B2151ZZ Fluoroscopy of Left Heart using Low Osmolar Contrast (ICD-10-PCS; 2024-07-10)
PROC: B2111ZZ Fluoroscopy of Multiple Coronary Arteries using Low Osmolar Contrast (ICD-10-PCS; 2024-07-10)
DX: I13.0 Hypertensive heart and chronic kidney disease with heart failure and stage 1 through stage 4 chronic kidney disease, or unspecified chronic kidney disease (principal); G93.41 Metabolic encephalopathy; I49.01 Ventricular fibrillation; I50.23 Acute on chronic systolic (congestive) heart failure; R57.0 Cardiogenic shock; J18.9 Pneumonia, unspecified organism; K68.3 Retroperitoneal hematoma; I63.49 Cerebral infarction due to embolism of other cerebral artery; I33.0 Acute and subacute infective endocarditis; J96.01 Acute respiratory failure with hypoxia; E87.1 Hypo-osmolality and hyponatremia; N17.9 Acute kidney failure, unspecified; R78.81 Bacteremia; L03.116 Cellulitis of left lower limb; L03.115 Cellulitis of right lower limb; E11.52 Type 2 diabetes mellitus with diabetic peripheral angiopathy with gangrene; I97.711 Intraoperative cardiac arrest during other surgery; G93.1 Anoxic brain damage, not elsewhere classified; I47.29 Other ventricular tachycardia; I31.39 Other pericardial effusion (noninflammatory); M86.172 Other acute osteomyelitis, left ankle and foot; D62 Acute posthemorrhagic anemia; F02.84 Dementia in other diseases classified elsewhere, unspecified severity, with anxiety; G81.94 Hemiplegia, unspecified affecting left nondominant side; J44.0 Chronic obstructive pulmonary disease with (acute) lower respiratory infection; E11.621 Type 2 diabetes mellitus with foot ulcer; L97.524 Non-pressure chronic ulcer of other part of left foot with necrosis of bone; I42.8 Other cardiomyopathies; I51.3 Intracardiac thrombosis, not elsewhere classified; E78.00 Pure hypercholesterolemia, unspecified; N18.31 Chronic kidney disease, stage 3a; E11.40 Type 2 diabetes mellitus with diabetic neuropathy, unspecified; Y83.8 Other surgical procedures as the cause of abnormal reaction of the patient, or of later complication, without mention of misadventure at the time of the procedure; R79.1 Abnormal coagulation profile; T45.515A Adverse effect of anticoagulants, initial encounter; I95.9 Hypotension, unspecified; K80.70 Calculus of gallbladder and bile duct without cholecystitis without obstruction; K21.9 Gastro-esophageal reflux disease without esophagitis; E11.65 Type 2 diabetes mellitus with hyperglycemia; I27.20 Pulmonary hypertension, unspecified; M79.81 Nontraumatic hematoma of soft tissue; B95.61 Methicillin susceptible Staphylococcus aureus infection as the cause of diseases classified elsewhere; E11.69 Type 2 diabetes mellitus with other specified complication; I25.10 Atherosclerotic heart disease of native coronary artery without angina pectoris; R33.9 Retention of urine, unspecified; B36.8 Other specified superficial mycoses; D69.6 Thrombocytopenia, unspecified; E03.9 Hypothyroidism, unspecified; E11.22 Type 2 diabetes mellitus with diabetic chronic kidney disease; E55.9 Vitamin D deficiency, unspecified; G20.A1 Parkinson's disease without dyskinesia, without mention of fluctuations; G47.33 Obstructive sleep apnea (adult) (pediatric); I48.91 Unspecified atrial fibrillation; Z11.52 Encounter for screening for COVID-19; Z79.01 Long term (current) use of anticoagulants; Z72.0 Tobacco use; Z79.4 Long term (current) use of insulin; Z79.82 Long term (current) use of aspirin; Z79.899 Other long term (current) drug therapy; Z82.3 Family history of stroke; Z82.49 Family history of ischemic heart disease and other diseases of the circulatory system; Z86.0100 Personal history of colon polyps, unspecified; Z91.128 Patient's intentional underdosing of medication regimen for other reason; Z91.148 Patient's other noncompliance with medication regimen for other reason
CPT/HCPCS: 88305; 88311; 93308; 36600; 70450; 70551; 71045; 71046; 71275; 73501; 74018; 74174; 74176; 74177; 74330; 76000; 76700; 80048; 80053; 80202; 81003; 81015; 82140; 82248; 82550; 82553; 82607; 82728; 82746; 82805; 82947; 82962; 83036; 83540; 83550; 83605; 83735; 83880; 83930; 83935; 84100; 84134; 84300; 84443; 84478; 84484; 85014; 85018; 85025; 85027; 85347; 85610; 85652; 85730; 86140; 86430; 86431; 86850; 86900; 86901; 86920; 87040; 87070; 87086; 87147; 87150; 87186; 87205; 87502; 87811; 92507; 92523; 92526; 92610; 93005; 93321; 93325; 93460; 93880; 93971; 94002; 94003; 95816; 97110; 97112; 97116; 97129; 97163; 97164; 97167; 97168; 97530; 97535; 99152; 99153; C1769; C1894; P9016; Q9950; Q9967

== ENCOUNTER → 2024-08-26 09:10 | Outpatient (REF) | payer OTHER, MEDICARE, SELFPAY | LOC: WOUND 09:10 | PROVIDERS: ATTENDING PHYSICIAN Surgery; FAMILY PHYSICIAN Family Medicine | DX: E11.621 Type 2 diabetes mellitus with foot ulcer (principal); L97.522 Non-pressure chronic ulcer of other part of left foot with fat layer exposed; L97.811 Non-pressure chronic ulcer of other part of right lower leg limited to breakdown of skin; L97.212 Non-pressure chronic ulcer of right calf with fat layer exposed; I73.9 Peripheral vascular disease, unspecified; I25.2 Old myocardial infarction; Z79.4 Long term (current) use of insulin | CPT/HCPCS: 11042; 99214 ==

== ENCOUNTER → 2024-09-05 14:48 | Outpatient (REF) | payer OTHER, SELFPAY | LOC: WOUND 14:48 | PROVIDERS: ATTENDING PHYSICIAN Surgery; FAMILY PHYSICIAN Family Medicine | DX: E11.621 Type 2 diabetes mellitus with foot ulcer (principal); L97.522 Non-pressure chronic ulcer of other part of left foot with fat layer exposed; L97.811 Non-pressure chronic ulcer of other part of right lower leg limited to breakdown of skin; L97.212 Non-pressure chronic ulcer of right calf with fat layer exposed; L97.222 Non-pressure chronic ulcer of left calf with fat layer exposed; I73.9 Peripheral vascular disease, unspecified; I25.2 Old myocardial infarction; Z79.4 Long term (current) use of insulin | CPT/HCPCS: 11042 ==

== ENCOUNTER → 2024-09-11 12:42 | Outpatient (REF) | payer OTHER, SELFPAY | LOC: EMG 12:42 | PROVIDERS: ATTENDING PHYSICIAN Nurse Practitioner | DX: R29.898 Other symptoms and signs involving the musculoskeletal system (principal); R20.0 Anesthesia of skin | CPT/HCPCS: 95886; 95909 ==

== ENCOUNTER → 2024-09-13 14:43 | Outpatient (REF) | payer OTHER, SELFPAY | LOC: WOUND 14:43 | PROVIDERS: ATTENDING PHYSICIAN Surgery; FAMILY PHYSICIAN Internal Medicine | DX: E11.621 Type 2 diabetes mellitus with foot ulcer (principal); L97.522 Non-pressure chronic ulcer of other part of left foot with fat layer exposed; L97.212 Non-pressure chronic ulcer of right calf with fat layer exposed; L97.222 Non-pressure chronic ulcer of left calf with fat layer exposed; S51.811A Laceration without foreign body of right forearm, initial encounter; S41.111A Laceration without foreign body of right upper arm, initial encounter; I73.9 Peripheral vascular disease, unspecified; I25.2 Old myocardial infarction; Z79.4 Long term (current) use of insulin; X58.XXXA Exposure to other specified factors, initial encounter | CPT/HCPCS: 99213 ==

== ENCOUNTER → 2024-09-18 12:46 | Outpatient (REF) | payer OTHER, SELFPAY | LOC: RCS 12:46 | PROVIDERS: ATTENDING PHYSICIAN Internal Medicine Cardiovascular Disease; FAMILY PHYSICIAN Family Medicine | DX: I50.20 Unspecified systolic (congestive) heart failure (principal) | CPT/HCPCS: 93306 ==

== ENCOUNTER → 2024-09-27 14:36 | Outpatient (REF) | payer OTHER, SELFPAY | LOC: WOUND 14:36 | PROVIDERS: ATTENDING PHYSICIAN Surgery; FAMILY PHYSICIAN Family Medicine | DX: E11.621 Type 2 diabetes mellitus with foot ulcer (principal); L97.522 Non-pressure chronic ulcer of other part of left foot with fat layer exposed; L97.212 Non-pressure chronic ulcer of right calf with fat layer exposed; L97.222 Non-pressure chronic ulcer of left calf with fat layer exposed; I73.9 Peripheral vascular disease, unspecified; I25.2 Old myocardial infarction; Z79.4 Long term (current) use of insulin | CPT/HCPCS: 17250; 99213 ==

== ENCOUNTER → 2024-10-02 14:32 | Outpatient (REF) | payer OTHER, SELFPAY | LOC: RAD 14:32 | PROVIDERS: ATTENDING PHYSICIAN Surgery Vascular Surgery; FAMILY PHYSICIAN Family Medicine | DX: I73.9 Peripheral vascular disease, unspecified (principal) | CPT/HCPCS: 93922; 93925 ==

== ENCOUNTER 2024-10-07 12:57 | Emergency (ER) | payer OTHER, SELFPAY ==
[2024-10-07 13:09] VITALS: BP 130/110
[2024-10-07 13:44] LABS: % Basophils 0.6 % (0-2); % Eosinophils 1.9 % (0-6); % Immature Granulocytes 0.5 % (0-0.5); % Lymphocytes 10.8 % (20.5-51.1); % Monocytes 8.3 % (1.7-9.3); % Neutrophils 77.9 % (42.2-75.2); Absolute Basophils 0.1 10^3/uL (0-0.2); Absolute Eosinophils 0.2 10^3/uL (0-0.7); Absolute Immature Granulocytes 0.1 10^3/uL (0-0.05); Absolute Lymphocytes 1.1 10^3/uL (1.2-3.4); Absolute Monocytes 0.9 10^3/uL (0.1-0.6); Absolute Neutrophils 7.9 10^3/uL (1.4-6.5); Hematocrit 37.6 % (39.0-52.0); Hemoglobin 12.5 g/dL (13.0-18.0); Mean Corp Hgb Conc. 33.2 g/dL (33.0-37.0); Mean Corpuscular Hgb 29.7 pg (27.0-31.0); Mean Corpuscular Volume 89.3 fL (80.0-94.0); Mean Platelet Volume 10.8 fL (7.4-10.4); Nucleated Red Blood Cells % 0 % (-); Platelet Count 233 10^3/uL (130-400); Red Blood Cell Count 4.21 10^6/uL (4.70-6.10); Red Cell Dist. Width 14.1 % (11.5-14.5); White Blood Cell Count 10.2 10^3/uL (4.8-10.8)
[2024-10-07 14:30] LABS: Blood Urea Nitrogen 55 mg/dl (9-20); Calcium 9.1 mg/dl (8.4-10.2); Carbon Dioxide 26 mmol/L (22-30); Chloride 106 mmol/L (98-107); Glucose 340 mg/dl (70-99); Sodium 140 mmol/L (135-145); eGFR 51.03
[2024-10-07 16:02] VITALS: BP 153/81
--- NOTE | 2024-10-07 16:34 | ED.GENMED ---
History of Present Illness
<Etta Pace PA-C - Last Filed: 10/07/24 23:02>
General
Chief Complaint: Visual Problem
Source: patient
Exam Limitations: none
Time Seen by Provider: 10/07/24 15:53
History of Present Illness
History of Present Illness:
64yoM with a history of CHF, hypertension, hyperlipidemia, insulin dependent diabetes presenting with his for evaluation of a visual disturbance. Patient has a bad left eye and had 2 prior procedures for a retinal detachment and a cataract
removal in the left eye. He typically sees darkness from the left eye. He was started on a steroid taper 4 days ago and 3 days ago, he started to notice blurred vision from his right eye. He states it feels like he is blind. He also sees what
looks like 'hair follicles' in his vision. He stopped taking the steroids after 2 doses and symptoms have not improved. He uses reading glasses normally. tried to get him appt with ophthalmology but he was unable to get an appt until the end
of October. He is otherwise asymptomatic and denies any headaches, eye pain, photophobia, visual field cut, diplopia.
Past History
<Etta Pace PA-C - Last Filed: 10/07/24 23:02>
Past History
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
ED Past Surgical History: Orthopedic
Social History
Tobacco: Former smoker
Alcohol: Occasional
Personal:
Living: with family
Employment: Employed
Family History
Family History: Other (Coronary disease. Sister with brain cancer. Brother with prostate cancer and COPD)
Phy Exam
<Etta Pace PA-C - Last Filed: 10/07/24 23:02>
General Physical Exam
General Presentation: well appearing and no apparent distress
General Skin: warm and dry
General Habitus: normal
General Mental: alert
ENT Exam
ENT Exam: normocephalic
Eye Exam
Eye Exam: PERRL, EOMI, conjunctiva normal and other (R conjunctiva is clear. PERRL. EOMs intact. Patient unable to read top of eye chart. Able to count fingers and light perception intact. Pressure 11mmHg in R eye. Ocular ultrasound shows vitreous
hemorrhage.)
Pulmonary Exam
Pulmonary Exam: no respiratory distress
Neurological Exam
Neurological Exam: alert
Matias Coma Scale
Eye Opening: Spontaneous
Verbal Response: Oriented
Motor Response: Obeys Commands
GCS Total Score: 15
Skin Exam
Skin Exam: normal color and warm/dry
Psychiatric Exam
Psychiatric Exam: normal mood/affect
Course
Herbielt;Etta Pace PA-C - Last Filed: 10/07/24 23:02>
Orders/Labs/Results
Orders:
Orders
10/07/24 13:11
CT Head W/o Iv Contrast Urgent
Comment:
Reason For Exam: visual changes since taking steriods
10/07/24 13:27
Basic Metabolic Panel Urgent
Complete Blood Count/With Diff Urgent
10/07/24 15:55
Visual Acuity- Treatment ONCE
Abnormal Lab Results
10/07/24
13:27
RBC 4.21 L 10^6/uL
(4.70-6.10)
Hgb 12.5 L g/dL
(13.0-18.0)
Hct 37.6 L %
(39.0-52.0)
MPV 10.8 H fL
(7.4-10.4)
Abs Immat Gran (auto) 0.1 H 10^3/uL
(0-0.05)
Absolute Neuts (auto) 7.9 H 10^3/uL
(1.4-6.5)
Absolute Lymphs (auto) 1.1 L 10^3/uL
(1.2-3.4)
Absolute Monos (auto) 0.9 H 10^3/uL
(0.1-0.6)
Neutrophils % 77.9 H %
(42.2-75.2)
Lymphocytes % 10.8 L %
(20.5-51.1)
BUN 55 H mg/dl
(9-20)
Creatinine 1.5 H mg/dL
(0.7-1.3)
Glucose 340 H mg/dl
(70-99)
10/07/24 13:27
10/07/24 13:27
Vital Signs
Initial and Last Documented VS:
Initial Vital Signs
Temp Pulse Resp BP Pulse Ox
98.0 F 66 16 130/110 98
10/07/24 13:09 10/07/24 13:09 10/07/24 13:09 10/07/24 13:09 10/07/24 13:09
Last Documented Vital Signs
Temp Pulse Resp BP Pulse Ox
98.0 F 60 18 153/81 99
10/07/24 13:09 10/07/24 16:02 10/07/24 16:02 10/07/24 16:02 10/07/24 16:39
<Vern Sanchez MD - Last Filed: 10/07/24 18:48>
Orders/Labs/Results
Orders:
Orders
10/07/24 13:11
CT Head W/o Iv Contrast Urgent
Comment:
Reason For Exam: visual changes since taking steriods
10/07/24 13:27
Basic Metabolic Panel Urgent
Complete Blood Count/With Diff Urgent
10/07/24 15:55
Visual Acuity- Treatment ONCE
Abnormal Lab Results
06/30/25
13:27
RBC 4.21 L 10^6/uL
(4.70-6.10)
Hgb 12.5 L g/dL
(13.0-18.0)
Hct 37.6 L %
(39.0-52.0)
MPV 10.8 H fL
(7.4-10.4)
Abs Immat Gran (auto) 0.1 H 10^3/uL
(0-0.05)
Absolute Neuts (auto) 7.9 H 10^3/uL
(1.4-6.5)
Absolute Lymphs (auto) 1.1 L 10^3/uL
(1.2-3.4)
Absolute Monos (auto) 0.9 H 10^3/uL
(0.1-0.6)
Neutrophils % 77.9 H %
(42.2-75.2)
Lymphocytes % 10.8 L %
(20.5-51.1)
BUN 55 H mg/dl
(9-20)
Creatinine 1.5 H mg/dL
(0.7-1.3)
Glucose 340 H mg/dl
(70-99)
10/07/24 13:27
10/07/24 13:27
Vital Signs
Initial and Last Documented VS:
Initial Vital Signs
Temp Pulse Resp BP Pulse Ox
98.0 F 66 16 130/110 98
10/07/24 13:09 10/07/24 13:09 10/07/24 13:09 10/07/24 13:09 10/07/24 13:09
Last Documented Vital Signs
Temp Pulse Resp BP Pulse Ox
98.0 F 60 18 153/81 99
10/07/24 13:09 10/07/24 16:02 10/07/24 16:02 10/07/24 16:02 10/07/24 16:39
Herbielt;Etta Pace PA-C - Last Filed: 10/07/24 23:02>
MDM/Problems Addressed
Differential Diagnosis Includes:
64yoM here with R eye visual disturbance/blurriness. Started 3 days ago after starting steroids. Has one functioning eye due to hx of L eye retinal detachment. States his current symptoms feel different. R eye is normal to inspection. Pupillary exam
is normal and EOMs intact. He is unable to read top of eye chart but able to count fingers. Ocular pressure WNL. Ocular ultrasound performed with Dr. Sanchez which shows evidence of vitreous hemorrhage. No evidence of retinal detachment noted. CT
head negative for acute findings. Glucose is 340 although bicarb is normal which rules out DKA. Case discussed with Dr. Shaw, on-call rotational moulding operator, who is able to see patient in office tomorrow afternoon to confirm dx. Patient in agreement
with plan and was discharged in stable condition.
<Etta Pace PA-C - Last Filed: 10/07/24 23:02>
*Pulse Oximetry
SaO2: 99
Oxygen Mode of Delivery: Room air
Patient hypoxic: no (98%)
*Critical Care Note
Total Time (30-74mins, 75-104mins- exclusive of procedures): Not Applicable
ED Attending Note
<Etta Pace PA-C - Last Filed: 10/07/24 23:02>
-
Portions of this chart may have been created with voice recognition software.� Occasional wrong word or��sound alike� substitutions may have occurred due to the inherent limitations of voice recognition software.
<Vern Sanchez MD - Last Filed: 10/07/24 18:48>
ED Attending Note
Patient seen and examined by attending physician: Yes
I performed the substantive portion of visit, reviewed & personally made and approve the management plan that is documented in note by myself or LUNA.: Yes
ED Attending Note:
Patient is a 64-year-old man with history of left-sided retinal detachment presenting to the emergency department right-sided vision changes. Patient states that he only has light perception to the left eye secondary to prior retinal detachment.
He states that a few days ago he developed right-sided vision changes. No double vision. No headache. No numbness tingling. No weakness. He denies any redness or drainage from the eye. No traumatic events. It is not painful.
Evaluation patient is able to count fingers. He does not have any signs of conjunctivitis on exam or redness. Pressures were normal. Did complete a bedside ultrasound which was suspicious of vitreous hemorrhage. No obvious retinal detachment or
vitreous detachment. Will be given the degree of vision loss we did discuss with ophthalmology who will evaluate patient tomorrow in office.
Discharge Plan
Departure
Patient Disposition: Home (Routine Discharge)
Date of Disposition: 10/07/24
Time of Disposition: 18:19
Patient with high blood pressure during this ER visit?: Yes
Discharge Problem:
Vitreous hemorrhage of right eye
Prescriptions:
No Action
albuterol sulfate 90 mcg/actuation Hfa Aerosol Inhaler
2 puff INHALATION R Q6HPRN PRN (Reason: sob)
furosemide 40 mg Tablet
40 mg PO DAILY Qty: 0 0RF
atorvastatin 40 mg Tablet
40 mg PO QPM Qty: 0 0RF
sennosides [Crystal-jojo] 8.6 mg Tablet
17.2 mg PO BID Qty: 0 0RF
carvedilol 6.25 mg Tablet
6.25 mg PO BID Qty: 0 0RF
polyethylene glycol 3350 17 gram Powder In Packet
17 g PO DAILY Qty: 0 0RF
amiodarone 200 mg Tablet
200 mg PO DAILY Qty: 0 0RF
spironolactone 25 mg Tablet
25 mg PO DAILY Qty: 0 0RF
pantoprazole 40 mg Tablet,Delayed Release (Dr/Ec)
40 mg PO DAILY Qty: 0 0RF
aspirin 81 mg Tablet,Chewable
81 mg PO DAILY Qty: 0 0RF
Refresh Classic (PF) 1.4-0.6 % Dropperette
1 drops ophthalmic (eye) QIDPRN PRN (Reason: DRY EYES) Qty: 0 0RF
Eliquis 5 mg Tablet
5 mg PO BID Qty: 0 0RF
Entresto 24-26 mg Tablet
1 tab PO BID Qty: 0 0RF
empagliflozin 10 mg tablet
10 mg PO DAILY Qty: 30 0RF
cephalexin 500 mg Capsule
500 mg PO QID Qty: 0 0RF
Rx Instructions:
last day 08/02/24.
Insulin Glargine Lantus [Lantus] 10 UNITS
Subcutaneous Insulin Syringe [Syringe-Insulin] 0 UNIT
As Directed mls/hr SC HS
Ordered By: Dieudonne Luke DO
Last Taken: Unknown
Insulin Glargine Lantus [Lantus] 12 UNITS
Subcutaneous Insulin Syringe [Syringe-Insulin] 0 UNIT
As Directed mls/hr SC DAILY@0800
Ordered By: Dieudonne Luke DO
Last Taken: Unknown
insulin aspart U-100 [Novolog FlexPen U-100 Insulin] 100 unit/mL (3 mL) insulin pen
8 unit SC AC Qty: 15 0RF
Referrals:
Cory Shaw MD [Active, Ophthalmology]
Raymond Sherwood DO [Family Provider, Family Practice]
Activity Restrictions/Additional Instructions:
Dr. Shaw can see you in the office tomorrow afternoon to confirm the diagnosis. His office hours start at noon. Please call the office at [phone] tomorrow.
Interventions
Interventions:
*Risk Screen - Suicide Last Done: 10/07/24 13:09
*General Assessment Last Done: 10/07/24 14:24
*Neglect/Abuse Screening Last Done: 10/07/24 13:09
*Nursing Disposition Last Done: 10/07/24 18:33
ED- Neurological Assessment Last Done: 10/07/24 14:25
Discharge Date and Time
Discharge Date/Time: 10/07/24 18:34
Print Language: TANZANIAN
--- NOTE | 2024-10-07 16:38 | CM ---
Addendum entered by Sara Olea 10/08/24 10:36:
discharge packet and ED note sent to [facility] via [facility] at Mary Beth's request
Original Note:
Received a call from [facility] Liaison, informing us pt is current with [facility].
She will follow up in AM.
== END 2024-10-07 18:34 | disposition home or self-care (01) ==
LOC: EMR 12:57
PROVIDERS: Emergency Medicine; EMERGENCY PHYSICIAN Student in an Organized Health Care Education/Training Program; FAMILY PHYSICIAN Family Medicine
DX: H43.11 Vitreous hemorrhage, right eye (principal); E11.9 Type 2 diabetes mellitus without complications; E78.00 Pure hypercholesterolemia, unspecified; I11.0 Hypertensive heart disease with heart failure; I50.9 Heart failure, unspecified; Z79.4 Long term (current) use of insulin
CPT/HCPCS: 99284; 70450; 80048; 85025

== ENCOUNTER → 2024-10-08 14:53 | Outpatient (REF) | payer OTHER, SELFPAY | LOC: WOUND 14:53 | PROVIDERS: ATTENDING PHYSICIAN Surgery; FAMILY PHYSICIAN Family Medicine | DX: E11.621 Type 2 diabetes mellitus with foot ulcer (principal); L97.522 Non-pressure chronic ulcer of other part of left foot with fat layer exposed; L97.212 Non-pressure chronic ulcer of right calf with fat layer exposed; L97.222 Non-pressure chronic ulcer of left calf with fat layer exposed; I73.9 Peripheral vascular disease, unspecified; Z79.4 Long term (current) use of insulin | CPT/HCPCS: 99213 ==

== ENCOUNTER → 2024-10-22 14:39 | Outpatient (REF) | payer OTHER, SELFPAY | LOC: WOUND 14:39 | PROVIDERS: ATTENDING PHYSICIAN Surgery; FAMILY PHYSICIAN Family Medicine | DX: E11.621 Type 2 diabetes mellitus with foot ulcer (principal); L97.522 Non-pressure chronic ulcer of other part of left foot with fat layer exposed; L97.212 Non-pressure chronic ulcer of right calf with fat layer exposed; L97.222 Non-pressure chronic ulcer of left calf with fat layer exposed; I73.9 Peripheral vascular disease, unspecified; I25.2 Old myocardial infarction; Z79.4 Long term (current) use of insulin | CPT/HCPCS: 99213 ==

== ENCOUNTER → 2024-11-05 14:34 | Outpatient (REF) | payer OTHER, SELFPAY | LOC: WOUND 14:34 | PROVIDERS: ATTENDING PHYSICIAN Surgery; FAMILY PHYSICIAN Family Medicine | DX: E11.621 Type 2 diabetes mellitus with foot ulcer (principal); L97.522 Non-pressure chronic ulcer of other part of left foot with fat layer exposed; L97.212 Non-pressure chronic ulcer of right calf with fat layer exposed; L97.222 Non-pressure chronic ulcer of left calf with fat layer exposed; I73.9 Peripheral vascular disease, unspecified; I25.2 Old myocardial infarction; Z79.4 Long term (current) use of insulin | CPT/HCPCS: 99213 ==

== ENCOUNTER → 2024-11-19 14:44 | Outpatient (REF) | payer OTHER, SELFPAY | LOC: WOUND 14:44 | PROVIDERS: ATTENDING PHYSICIAN Surgery; FAMILY PHYSICIAN Family Medicine | DX: E11.621 Type 2 diabetes mellitus with foot ulcer (principal); L97.522 Non-pressure chronic ulcer of other part of left foot with fat layer exposed; L97.212 Non-pressure chronic ulcer of right calf with fat layer exposed; L97.222 Non-pressure chronic ulcer of left calf with fat layer exposed; I73.9 Peripheral vascular disease, unspecified; I25.2 Old myocardial infarction; Z79.4 Long term (current) use of insulin | CPT/HCPCS: 99213 ==

== ENCOUNTER → 2024-12-03 14:42 | Outpatient (REF) | payer OTHER, SELFPAY | LOC: WOUND 14:42 | PROVIDERS: ATTENDING PHYSICIAN Surgery; FAMILY PHYSICIAN Family Medicine | DX: E11.621 Type 2 diabetes mellitus with foot ulcer (principal); L97.522 Non-pressure chronic ulcer of other part of left foot with fat layer exposed; L97.212 Non-pressure chronic ulcer of right calf with fat layer exposed; L02.11 Cutaneous abscess of neck; L97.222 Non-pressure chronic ulcer of left calf with fat layer exposed; I73.9 Peripheral vascular disease, unspecified; I25.2 Old myocardial infarction; Z79.4 Long term (current) use of insulin | CPT/HCPCS: 17250; 99213 ==

== ENCOUNTER → 2024-12-17 10:51 | Outpatient (REF) | payer OTHER, SELFPAY | LOC: WOUND 10:51 | PROVIDERS: ATTENDING PHYSICIAN Surgery; FAMILY PHYSICIAN Family Medicine | DX: E11.621 Type 2 diabetes mellitus with foot ulcer (principal); L97.522 Non-pressure chronic ulcer of other part of left foot with fat layer exposed; L97.212 Non-pressure chronic ulcer of right calf with fat layer exposed; L02.11 Cutaneous abscess of neck; L97.222 Non-pressure chronic ulcer of left calf with fat layer exposed; I73.9 Peripheral vascular disease, unspecified; I25.2 Old myocardial infarction; Z79.4 Long term (current) use of insulin | CPT/HCPCS: 99214 ==

== ENCOUNTER 2024-12-17 15:27 | Emergency (ER) | payer OTHER, SELFPAY ==
[2024-12-17 15:32] VITALS: BP 165/75
[2024-12-17 16:16] LABS: Hematocrit 35.5 % (39.0-52.0); Hemoglobin 12.1 g/dL (13.0-18.0); Mean Corp Hgb Conc. 34.1 g/dL (33.0-37.0); Mean Corpuscular Volume 90.8 fL (80.0-94.0); Nucleated Red Blood Cells % 0 % (-); Red Cell Dist. Width 12.8 % (11.5-14.5)
[2024-12-17 16:21] LABS: ALT (SGPT) 30 U/L (0-50); AST (SGOT) 32 U/L (17-59); Albumin 4.2 g/dl (3.5-5.0); Alkaline Phosphatase 141 U/L (38-126); Blood Urea Nitrogen 37 mg/dl (9-20); Calcium 9.4 mg/dl (8.4-10.2); Carbon Dioxide 23 mmol/L (22-30); Chloride 107 mmol/L (98-107); Glucose 242 mg/dl (70-99); Potassium 4.4 mmol/L (3.5-5.1); Sodium 139 mmol/L (135-145); Total Protein 7.3 g/dl (6.3-8.2); eGFR 55.43
--- NOTE | 2024-12-17 16:55 | ED.GENMED ---
History of Present Illness
General
Chief Complaint: Skin Problem
Source: patient and spouse
Exam Limitations: none
Time Seen by Provider: 12/17/24 16:27
Nursing documentation reviewed up to this point in time: agreed with
History of Present Illness
History of Present Illness:
64-year-old male with history as noted presents for evaluation of swollen red bump on the back of his neck. Patient reports he started noticed symptoms 5 or 6 days ago initially it looked like an ingrown hair and he was treating with warm
compresses with improvement however over the past 2 or 3 days has had increasing pain and swelling in the area, saw his doctor who referred to the ER for assessment. Denies any fevers chills or any other acute complaints. Denies any trauma. He
has not been on antibiotics.
Past History
Past History
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
ED Past Surgical History: Orthopedic
Social History
Tobacco: Former smoker
Alcohol: Occasional
Personal:
Living: with family
Employment: Employed
Family History
Family History: Other (Coronary disease. Sister with brain cancer. Brother with prostate cancer and COPD)
Review of Systems
Review of Systems
All Other Systems: ROS reviewed and negative except as documented in HPI and ROS
Constitutional: Denies fever or chills
Skin: Reports other (Painful swollen bump on left posterior neck)
Phy Exam
Physical Exam
Physical Exam:
General: Well appearing and non-toxic
HEENT: protecting airway
Neck: appears supple
CV: No evidence of cyanosis
Resp: No accessory muscle use
Abd: Non-distended
Extremities: No deformities
Neuro: Alert
Psych: Normal affect
Skin: Patient has small superficial abscess/phlegmon on the left posterior neck with large approximately 6 cm rim of erythema and induration�no active drainage noted; area is warm and tender to touch no crepitus noted
Scores
Heart Failure Risk
Heart Failure Risk Score: Not Applicable
Heart Score for Chest Pain Patients
STEMI patient?: Not applicable
Withdrawal Assessment of Alcohol
Withdrawal Assessment Completed?: Not applicable
Course
Orders/Labs/Results
Orders:
Orders
12/17/24 15:40
CBC/With Diff [Complete Blood Count/With Diff] Urgent
CMP [Comprehensive Metabolic Panel] Urgent
12/17/24 16:52
Amoxicillin 875 mg/Clav 125 mg [Augmentin 875 mg/125 mg] 1 tablet PO NOW STA
Doxycycline [Vibramycin] 100 mg PO NOW STA
Abnormal Lab Results
12/17/24
15:40
RBC 3.91 L 10^6/uL
(4.70-6.10)
Hgb 12.1 L g/dL
(13.0-18.0)
Hct 35.5 L %
(39.0-52.0)
Absolute Neuts (auto) 8.0 H 10^3/uL
(1.4-6.5)
Absolute Lymphs (auto) 1.1 L 10^3/uL
(1.2-3.4)
Absolute Monos (auto) 0.9 H 10^3/uL
(0.1-0.6)
Neutrophils % 77.5 H %
(42.2-75.2)
Lymphocytes % 10.7 L %
(20.5-51.1)
BUN 37 H mg/dl
(9-20)
Creatinine 1.4 H mg/dL
(0.7-1.3)
Glucose 242 H mg/dl
(70-99)
Alkaline Phosphatase 141 H U/L
(38-126)
12/17/24 15:40
12/17/24 15:40
Vital Signs
Initial and Last Documented VS:
Initial Vital Signs
Temp Pulse Resp BP Pulse Ox
36.8 C 67 12 165/75 95
12/17/24 15:32 12/17/24 15:32 12/17/24 15:32 12/17/24 15:32 12/17/24 15:32
Last Documented Vital Signs
Temp Pulse Resp BP Pulse Ox
36.8 C 67 12 165/75 95
12/17/24 15:32 12/17/24 15:32 12/17/24 15:32 12/17/24 15:32 12/17/24 15:32
Procedures
Incision/Drainage/Joint Aspiration
Left Neck:
Anethesia: 1% Lidocaine with Epi
Preparation: cleaned with alcohol wipe
Type of procedure: incise and drain
Nature of site: abscess
Description of abscess: less than 3cm
How much fluid was obtained?: scant amount
Fluid description: bloody
Treatment: left open for drainage, antibiotics started and bandaid applied
MDM/Problems Addressed
Differential Diagnosis Includes:
Abscess, phlegmon, cellulitis, lymphadenitis
MDM/Problems Addressed:
64-year-old male presents with painful red bump on the left posterior neck initially started as an ingrown hair but increasing in size over the past few days. Vitals and exam as above. Labs were sent in triage and no clinically significant
abnormalities. Hyperglycemic in the setting of known diabetes. [id number] ultrasound performed by me showed some cobblestoning consistent with cellulitis but no large drainable collection; despite no clear collection on ultrasound there was an
area of fluctuance in the center of erythema and so I performed a small cruciate incision with only scant purulent but mostly bloody drainage. Clean dressing applied. Will start on antibiotics. Spoke to patient in detail about follow-up plan and
return precaution, all questions answered.
*Pulse Oximetry
SaO2: 95
Oxygen Mode of Delivery: Room air
Patient hypoxic: no (95%)
*Critical Care Note
Total Time (30-74mins, 75-104mins- exclusive of procedures): Not Applicable
Data Reviewed
Source: patient and spouse
ED Attending Note
-
Portions of this chart may have been created with voice recognition software.� Occasional wrong word or��sound alike� substitutions may have occurred due to the inherent limitations of voice recognition software.
Discharge Plan
Departure
Patient Disposition: Home (Routine Discharge)
Date of Disposition: 12/17/24
Time of Disposition: 16:53
Patient with high blood pressure during this ER visit?: Yes
Discharge Problem:
Cellulitis
Instructions: Cellulitis (Skin Infection), Adult (DC), Skin Abscess
Prescriptions:
New
amoxicillin-pot clavulanate 875-125 mg tablet
1 tab PO BID 10 Days Qty: 20 0RF
doxycycline hyclate 100 mg tablet
100 mg PO BID 10 Days Qty: 20 0RF
No Action
albuterol sulfate 90 mcg/actuation Hfa Aerosol Inhaler
2 puff INHALATION R Q6HPRN PRN (Reason: sob)
furosemide 40 mg Tablet
40 mg PO DAILY Qty: 0 0RF
atorvastatin 40 mg Tablet
40 mg PO QPM Qty: 0 0RF
sennosides [Crystal-jojo] 8.6 mg Tablet
17.2 mg PO BID Qty: 0 0RF
carvedilol 6.25 mg Tablet
6.25 mg PO BID Qty: 0 0RF
polyethylene glycol 3350 17 gram Powder In Packet
17 g PO DAILY Qty: 0 0RF
amiodarone 200 mg Tablet
200 mg PO DAILY Qty: 0 0RF
spironolactone 25 mg Tablet
25 mg PO DAILY Qty: 0 0RF
pantoprazole 40 mg Tablet,Delayed Release (Dr/Ec)
40 mg PO DAILY Qty: 0 0RF
aspirin 81 mg Tablet,Chewable
81 mg PO DAILY Qty: 0 0RF
Refresh Classic (PF) 1.4-0.6 % Dropperette
1 drops ophthalmic (eye) QIDPRN PRN (Reason: DRY EYES) Qty: 0 0RF
Eliquis 5 mg Tablet
5 mg PO BID Qty: 0 0RF
Entresto 24-26 mg Tablet
1 tab PO BID Qty: 0 0RF
empagliflozin 10 mg tablet
10 mg PO DAILY Qty: 30 0RF
cephalexin 500 mg Capsule
500 mg PO QID Qty: 0 0RF
Rx Instructions:
last day 08/02/24.
Insulin Glargine Lantus [Lantus] 10 UNITS
Subcutaneous Insulin Syringe [Syringe-Insulin] 0 UNIT
As Directed mls/hr SC HS
Ordered By: Dieudonne Luke DO
Last Taken: Unknown
Insulin Glargine Lantus [Lantus] 12 UNITS
Subcutaneous Insulin Syringe [Syringe-Insulin] 0 UNIT
As Directed mls/hr SC DAILY@0800
Ordered By: Dieudonne Luke DO
Last Taken: Unknown
insulin aspart U-100 [Novolog FlexPen U-100 Insulin] 100 unit/mL (3 mL) insulin pen
8 unit SC AC Qty: 15 0RF
Referrals:
Raymond Sherwood DO [Family Provider, Family Practice] - Follow up in 1 week
Activity Restrictions/Additional Instructions:
You should monitor the area very closely�if it is worsening despite antibiotics or if it is not improving in a few days despite antibiotics you should return to the emergency room to be evaluated. If you develop any fevers or chills you should
return to the ER. If you develop any other concerning symptoms please return for reassessment. Otherwise you should follow-up with your doctor within the next week to have the area reassessed.
Thank you for visiting the Emergency Department at [facility].
1. Please schedule a follow up appointment as directed. Call first thing tomorrow morning to make an appointment.
2. If indicated, please take your medications as instructed and indicated on discharge paperwork.
3. If any of your symptoms do not improve, or persist, or become more severe within 6-12 hours, please return to the emergency department for further care.
4. Please return to the emergency department if you develop a headache, neck pain/stiffness, fever greater than 100.4F, chest pain, shortness of breath, persistent nausea, vomiting, slurred speech, difficulty walking, numbness/tingling, weakness,
signs of infection or any other symptoms that are worrisome to you.
Please call [phone] if you have any questions.
Interventions
Interventions:
*Risk Screen - Suicide Last Done: 12/17/24 15:32
*General Assessment Last Done: 12/17/24 15:32
*Neglect/Abuse Screening Last Done: 12/17/24 15:32
Discharge Date and Time
Print Language: DANISH
[2024-12-17] MEDS: VIBRAMYCIN 100 MG PO (17:03)
[2024-12-17] MEDS: AUGMENTIN 875 MG/125 MG 1 TABLET PO (17:03)
== END 2024-12-17 17:17 | disposition home or self-care (01) ==
LOC: EMR 15:27
PROVIDERS: Student in an Organized Health Care Education/Training Program; EMERGENCY PHYSICIAN Emergency Medicine; FAMILY PHYSICIAN Family Medicine
DX: L02.11 Cutaneous abscess of neck (principal); L03.221 Cellulitis of neck; E11.65 Type 2 diabetes mellitus with hyperglycemia; E78.00 Pure hypercholesterolemia, unspecified; I10 Essential (primary) hypertension; I42.8 Other cardiomyopathies; Z87.891 Personal history of nicotine dependence
CPT/HCPCS: 10060; 99283; 80053; 85025

== ENCOUNTER → 2024-12-31 09:20 | Outpatient (REF) | payer OTHER, SELFPAY | LOC: WOUND 09:20 | PROVIDERS: ATTENDING PHYSICIAN Surgery; FAMILY PHYSICIAN Family Medicine | DX: E11.621 Type 2 diabetes mellitus with foot ulcer (principal); L97.522 Non-pressure chronic ulcer of other part of left foot with fat layer exposed; L97.212 Non-pressure chronic ulcer of right calf with fat layer exposed; L02.11 Cutaneous abscess of neck; L97.222 Non-pressure chronic ulcer of left calf with fat layer exposed; I73.9 Peripheral vascular disease, unspecified; I25.2 Old myocardial infarction; Z79.4 Long term (current) use of insulin | CPT/HCPCS: 99213 ==

== ENCOUNTER → 2025-01-14 12:22 | Outpatient (REF) | payer OTHER, SELFPAY | LOC: HWRAD 12:22 | PROVIDERS: ATTENDING PHYSICIAN Internal Medicine; FAMILY PHYSICIAN Family Medicine | DX: N18.31 Chronic kidney disease, stage 3a (principal) | CPT/HCPCS: 76770 ==

== ENCOUNTER → 2025-01-14 14:35 | Outpatient (REF) | payer OTHER, SELFPAY | LOC: WOUND 14:35 | PROVIDERS: ATTENDING PHYSICIAN Surgery; FAMILY PHYSICIAN Family Medicine | DX: E11.621 Type 2 diabetes mellitus with foot ulcer (principal); L97.522 Non-pressure chronic ulcer of other part of left foot with fat layer exposed; L97.212 Non-pressure chronic ulcer of right calf with fat layer exposed; L02.11 Cutaneous abscess of neck; L97.222 Non-pressure chronic ulcer of left calf with fat layer exposed; I73.9 Peripheral vascular disease, unspecified; I25.2 Old myocardial infarction; Z79.4 Long term (current) use of insulin | CPT/HCPCS: 99213 ==

== ENCOUNTER → 2025-01-24 15:42 | Outpatient (REF) | payer OTHER, SELFPAY | LOC: RAD 15:42 | PROVIDERS: ATTENDING PHYSICIAN Podiatrist; FAMILY PHYSICIAN Family Medicine | DX: E11.621 Type 2 diabetes mellitus with foot ulcer (principal) | CPT/HCPCS: 73660 ==

== ENCOUNTER → 2025-01-28 14:40 | Outpatient (REF) | payer OTHER, SELFPAY | LOC: WOUND 14:40 | PROVIDERS: ATTENDING PHYSICIAN Surgery; FAMILY PHYSICIAN Family Medicine | DX: E11.621 Type 2 diabetes mellitus with foot ulcer (principal); L97.522 Non-pressure chronic ulcer of other part of left foot with fat layer exposed; L97.212 Non-pressure chronic ulcer of right calf with fat layer exposed; L02.11 Cutaneous abscess of neck; L97.222 Non-pressure chronic ulcer of left calf with fat layer exposed; I73.9 Peripheral vascular disease, unspecified; I25.2 Old myocardial infarction; Z79.4 Long term (current) use of insulin | CPT/HCPCS: 99213 ==

== ENCOUNTER → 2025-02-11 08:42 | Outpatient (REF) | payer OTHER, SELFPAY | LOC: WOUND 08:42 | PROVIDERS: ATTENDING PHYSICIAN Surgery; FAMILY PHYSICIAN Family Medicine | DX: E11.621 Type 2 diabetes mellitus with foot ulcer (principal); L97.522 Non-pressure chronic ulcer of other part of left foot with fat layer exposed; L97.212 Non-pressure chronic ulcer of right calf with fat layer exposed; L02.11 Cutaneous abscess of neck; L97.222 Non-pressure chronic ulcer of left calf with fat layer exposed; I73.9 Peripheral vascular disease, unspecified; I25.2 Old myocardial infarction; Z79.4 Long term (current) use of insulin | CPT/HCPCS: 99213 ==

== ENCOUNTER 2025-02-25 14:43 | Outpatient (REF) | payer OTHER, SELFPAY | END 2025-02-25 23:59 | disposition home or self-care (01) | LOC: WOUND 14:43 | PROVIDERS: ATTENDING PHYSICIAN Surgery; FAMILY PHYSICIAN Family Medicine | DX: E11.621 Type 2 diabetes mellitus with foot ulcer (principal); L97.522 Non-pressure chronic ulcer of other part of left foot with fat layer exposed; L97.212 Non-pressure chronic ulcer of right calf with fat layer exposed; L02.11 Cutaneous abscess of neck; L97.222 Non-pressure chronic ulcer of left calf with fat layer exposed; I73.9 Peripheral vascular disease, unspecified; I25.2 Old myocardial infarction; Z79.4 Long term (current) use of insulin | CPT/HCPCS: 99213 ==

== ENCOUNTER → 2025-03-14 12:38 | Outpatient (REF) | payer OTHER, SELFPAY | LOC: MRI 3T 12:38 | PROVIDERS: ATTENDING PHYSICIAN Podiatrist; FAMILY PHYSICIAN Family Medicine; REFERRING PHYSICIAN Student in an Organized Health Care Education/Training Program | DX: E11.621 Type 2 diabetes mellitus with foot ulcer (principal); L08.9 Local infection of the skin and subcutaneous tissue, unspecified | CPT/HCPCS: 73718 ==

== ENCOUNTER 2025-03-18 10:43 | Outpatient (REF) | payer OTHER, SELFPAY | END 2025-03-18 23:59 | disposition home or self-care (01) | LOC: WOUND 10:43 | PROVIDERS: ATTENDING PHYSICIAN Registered Nurse; FAMILY PHYSICIAN Family Medicine | DX: E11.621 Type 2 diabetes mellitus with foot ulcer (principal); L97.522 Non-pressure chronic ulcer of other part of left foot with fat layer exposed; L97.212 Non-pressure chronic ulcer of right calf with fat layer exposed; L02.11 Cutaneous abscess of neck; L97.222 Non-pressure chronic ulcer of left calf with fat layer exposed; I73.9 Peripheral vascular disease, unspecified; I25.2 Old myocardial infarction; Z79.4 Long term (current) use of insulin | CPT/HCPCS: 99213 ==

== ENCOUNTER 2025-04-01 14:48 | Outpatient (REF) | payer OTHER, SELFPAY | END 2025-04-01 23:59 | disposition home or self-care (01) | LOC: WOUND 14:48 | PROVIDERS: ATTENDING PHYSICIAN Registered Nurse; FAMILY PHYSICIAN Family Medicine | DX: E11.621 Type 2 diabetes mellitus with foot ulcer (principal); L97.522 Non-pressure chronic ulcer of other part of left foot with fat layer exposed; L97.212 Non-pressure chronic ulcer of right calf with fat layer exposed; L02.11 Cutaneous abscess of neck; E11.51 Type 2 diabetes mellitus with diabetic peripheral angiopathy without gangrene; I25.2 Old myocardial infarction; Z79.4 Long term (current) use of insulin | CPT/HCPCS: 99213 ==

== ENCOUNTER → 2025-04-09 08:59 | Outpatient (REF) | payer OTHER, SELFPAY | LOC: RCS 08:59 | PROVIDERS: ATTENDING PHYSICIAN Internal Medicine Cardiovascular Disease; FAMILY PHYSICIAN Family Medicine | DX: I42.8 Other cardiomyopathies (principal) | CPT/HCPCS: 93306 ==